=== PATIENT | female | born 1945 | race Two or more races ===

== ENCOUNTER 2016-11-06 13:29 | Inpatient (IN) | payer MEDICARE, OTHER ==
[~2016-11-06] VITALS: Ht 154.9 cm; Wt 45.4 kg
[~2016-11-06 13:29] MED LIST: CALCIUM500 M3 PO; KEFLEX500 MG ORAL; LYRICA25 MG ORAL
[2016-11-06 13:55] VITALS: BP 102/63
--- NOTE | 2016-11-06 14:12 | Emergency Room Report ---
History of Present Illness General Chief Complaint: Upper Respiratory Illness Source: Patient (Riya Foster) Present Illness HPI 71-year-old female presents to emergency Department complaining of productive cough over 2 months. Patient states that approximately a month and a half ago she was prescribed antibiotics however now she states she began that fevers and chills over the course of the past 2 days. Patient states that she was diagnosed previously with bronchitis she denies recent travel and reports her only ill contact was her grandson. Patient reports past medical history of hypertension denies history of asthma, COPD, smoking, cardiac disease or renal disease. She denies swelling in the lower extremities. Patient states that yesterday she also felt weaker than normal. Patient denies fall, dizziness, dysuria, hematuria, abdominal pain, rashes. Denies sore throat or runny nose. Denies CP, Palpitations, LOC, AMS, dizziness, Changes in Vision, Sensation, paresthesias, or a sudden severe headache. (Riya Foster) Allergies: Coded Allergies: No Known Allergies (Unverified , 10/02/15) Patient History Past Medical History: see triage record, HTN Past Surgical History: none Pertinent Family History: none Last Menstrual Period: na Now: No Immunizations: UTD Reviewed Nursing Documentation: PMH: Agreed, PSxH: Agreed (Riya Foster) Nursing Documentation-PMH Past Medical History: No History, Except For (Riya Foster) Review of Systems All Other Systems: negative except mentioned in HPI (Riya Foster) Physical Exam Vital Signs Date Time Temp Pulse Resp B/P Pulse Ox O2 Delivery O2 Flow Rate FiO2 11/06/16 13:47 100.6 106 20 102/63 98 Room Air Sp02 EP Interpretation: reviewed, abnormal - fever 100.6, tachycardic 106 BPM General Appearance: no apparent distress, alert, GCS 15, non-toxic Head: normocephalic, atraumatic Eyes: bilateral eye PERRL, bilateral eye normal inspection ENT: hearing grossly normal, normal pharynx, no angioedema, normal voice Neck: full range of motion, supple/symm/no masses Respiratory: chest non-tender, crackles - inspiratory crackles auscultated at the base of the right lung, left lung diamond are CTA, speaking full sentences Cardiovascular #1: regular rate, rhythm, no edema, normal capillary refill, tachycardia - 106BPM Gastrointestinal: soft Rectal: deferred Genitourinary: normal inspection, no CVA tenderness Musculoskeletal: back normal, gait/station normal, normal range of motion, non- tender, no calf tenderness Neurologic: alert, oriented x3, responsive, motor strength/tone normal, sensory intact, speech normal Psychiatric: judgement/insight normal, memory normal, mood/affect normal, no suicidal/homicidal ideation Skin: normal color, no rash, warm/dry, well hydrated Lymphatic: no adenopathy (Riya Foster) Medical Decision Making PA Attestation Dr. Fonseca is my supervising Physician whom patient management has been discussed with. (Riya Foster) Diagnostic Impression: Primary Impression: Pneumonia Qualified Codes: J18.9 - Pneumonia, unspecified organism Additional Impression: Anemia Qualified Codes: D64.9 - Anemia, unspecified ER Course 71-year-old female presents to emergency Department complaining of productive cough over 2 months. Patient states that approximately a month and a half ago she was prescribed antibiotics however now she states she began that fevers and chills over the course of the past 2 days. Patient states that she was diagnosed previously with bronchitis she denies recent travel and reports her only ill contact was her grandson. Patient reports past medical history of hypertension denies history of asthma, COPD, smoking, cardiac disease or renal disease. She denies swelling in the lower extremities. Patient states that yesterday she also felt weaker than normal. Patient denies fall, dizziness, dysuria, hematuria, abdominal pain, rashes. Denies sore throat or runny nose. Ddx considered but are not limited to URI, pneumonia, PE, pulmonary edema, bronchitis Vital signs: Pt. has fever of 100.6, tachycardic 106 bpm H&PE are most consistent with possible PNA, inspiratory crackles auscultated at the base of the right lung, left lung diamond are CTA. ORDERS: -CXR 1 View: Bilateral pulmonary infiltrates, no atelectasis, no effusions per preliminary read by Dr. Fonseca -CBC: WBC's elevated 10.9, hemoglobin 10.9, rbc's 3.5 -BMP: mild hypochloremia and hyponatremia , Cr 1.1 -UA: pending -Pro-BNP: 985 -Lactic Acid: pending -Blood Cultures x 2: Pending -EK BPM NSR, no Acute ST changes- interpreted by Dr. Fonseca ED INTERVENTIONS: -Pt placed on cardiac monitoring -IV Access established -3grams Unasyn IVPB DISPOSITION: at this time pt. will be admitted to Dr. De La Torre for Pneumonia. Dr. De La Torre agreed to admit the pt. and to continue pt. care management.- Endorsed to Dr. De La Torre at 1547 Labs Test 11/06/16 14:24 11/06/16 15:19 11/06/16 15:34 White Blood Count 10.9 K/UL (4.8-10.8) Red Blood Count 3.56 M/UL (4.20-5.40) Hemoglobin 10.9 G/DL (12.0-16.0) Hematocrit 32.7 % (37.0-47.0) Mean Corpuscular Volume 92 FL (80-99) Mean Corpuscular Hemoglobin 30.7 PG (27.0-31.0) Mean Corpuscular Hemoglobin Concent 33.5 G/DL (32.0-36.0) Red Cell Distribution Width 11.8 % (11.6-14.8) Platelet Count 311 K/UL (150-450) Mean Platelet Volume 6.2 FL (6.5-10.1) Neutrophils (%) (Auto) % (45.0-75.0) Lymphocytes (%) (Auto) % (20.0-45.0) Monocytes (%) (Auto) % (1.0-10.0) Eosinophils (%) (Auto) % (0.0-3.0) Basophils (%) (Auto) % (0.0-2.0) Differential Total Cells Counted 100 Neutrophils % (Manual) 91 % (45-75) Lymphocytes % (Manual) 5 % (20-45) Monocytes % (Manual) 3 % (1-10) Eosinophils % (Manual) 0 % (0-3) Basophils % (Manual) 0 % (0-2) Band Neutrophils 1 % (0-8) Platelet Estimate Adequate Platelet Morphology Normal Red Blood Cell Morphology Normal Sodium Level 132 mEQ/L (135-145) Potassium Level 3.9 mEQ/L (3.4-4.9) Chloride Level 95 mEQ/L (98-107) Carbon Dioxide Level 22 mEQ/L (20-30) Anion Gap 15 (5-15) Blood Urea Nitrogen 20 mg/dL (7-23) Creatinine 1.1 mg/dL (0.5-0.9) Estimat Glomerular Filtration Rate mL/min (>60) Glucose Level 140 mg/dL (74-106) Calcium Level 8.6 mg/dL (8.6-10.2) Pro-B-Type Natriuretic Peptide 985 pg/mL (0-125) (Riya Foster) ER Course The patient was seen by physician assistant scientist. Patient noted have evidence of temporal muscle wasting. Patient's chest x-ray showed bilateral l lung infiltrate. Patient was given IV antibiotics. Patient started on IV fluids. Patient appears to have been losing weight according to her family. This is reportedly do to a recent of her son.Chest x-ray read by radiology showed bilateral diffuse interstitial disease with indeterminate acuity. Labs Test 11/06/16 14:24 White Blood Count 10.9 K/UL (4.8-10.8) Red Blood Count 3.56 M/UL (4.20-5.40) Hemoglobin 10.9 G/DL (12.0-16.0) Hematocrit 32.7 % (37.0-47.0) Mean Corpuscular Volume 92 FL (80-99) Mean Corpuscular Hemoglobin 30.7 PG (27.0-31.0) Mean Corpuscular Hemoglobin Concent 33.5 G/DL (32.0-36.0) Red Cell Distribution Width 11.8 % (11.6-14.8) Platelet Count 311 K/UL (150-450) Mean Platelet Volume 6.2 FL (6.5-10.1) Neutrophils (%) (Auto) % (45.0-75.0) Lymphocytes (%) (Auto) % (20.0-45.0) Monocytes (%) (Auto) % (1.0-10.0) Eosinophils (%) (Auto) % (0.0-3.0) Basophils (%) (Auto) % (0.0-2.0) Differential Total Cells Counted 100 Neutrophils % (Manual) 91 % (45-75) Lymphocytes % (Manual) 5 % (20-45) Monocytes % (Manual) 3 % (1-10) Eosinophils % (Manual) 0 % (0-3) Basophils % (Manual) 0 % (0-2) Band Neutrophils 1 % (0-8) Platelet Estimate Adequate Platelet Morphology Normal Red Blood Cell Morphology Normal Sodium Level 132 mEQ/L (135-145) Potassium Level 3.9 mEQ/L (3.4-4.9) Chloride Level 95 mEQ/L (98-107) Carbon Dioxide Level 22 mEQ/L (20-30) Anion Gap 15 (5-15) Blood Urea Nitrogen 20 mg/dL (7-23) Creatinine 1.1 mg/dL (0.5-0.9) Estimat Glomerular Filtration Rate mL/min (>60) Glucose Level 140 mg/dL (74-106) Calcium Level 8.6 mg/dL (8.6-10.2) (Darian Fonseca) EKG Diagnostic Results EP Interpretation: interpreted by Dr. Fonseca Rate: normal - 97 BPM Rhythm: NSR ST Segments: no acute changes ASA given to the pt in ED: No PA Scribe Text interpreted by Dr. Fonseca (Riya Foster P.ANorma) Rate: normal Rhythm: NSR ST Segments: no acute changes (Darian Fonseca) Last Vital Signs Date Time Temp Pulse Resp B/P Pulse Ox O2 Delivery O2 Flow Rate FiO2 11/06/16 13:47 100.6 106 20 102/63 98 Room Air (Riya Foster P.ANorma) Status: unchanged (Darian Fonseca) Disposition: ADMITTED INPATIENT Condition: Serious Referrals: NON PHYSICIAN (PCP) Riya Foster Nov 06, 2016 14:12 Darian Fonseca Nov 06, 2016 15:24
[2016-11-06 14:38] LABS: MEAN CORPUSCULAR HEMOGLOBIN 30.7 PG (27.0-31.0); MEAN CORPUSCULAR HGB CONC 33.5 G/DL (32.0-36.0); MEAN CORPUSCULAR VOLUME 92 FL (80-99); MEAN PLATELET VOLUME 6.2 FL (6.5-10.1); PLATELET COUNT 311 K/UL (150-450); RED BLOOD COUNT 3.56 M/UL (4.20-5.40); RED CELL DISTRIBUTION WIDTH 11.8 % (11.6-14.8); WHITE BLOOD COUNT 10.9 K/UL (4.8-10.8)
[2016-11-06 14:52] LABS: ANION GAP 15 (5-15); CALCIUM 8.6 mg/dL (8.6-10.2); CARBON DIOXIDE 22 mEQ/L (20-30); CHLORIDE 95 mEQ/L (98-107); CREATININE 1.1 mg/dL (0.5-0.9); HEMOLYSIS 9; POTASSIUM 3.9 mEQ/L (3.4-4.9); SODIUM 132 mEQ/L (135-145)
[2016-11-06 15:10] LABS: BAND NEUTROPHILS % (MANUAL) 1 % (0-8); BASOPHILS % (MANUAL) 0 % (0-2); EOSINOPHILS % (MANUAL) 0 % (0-3); LYMPHOCYTES % (MANUAL) 5 % (20-45); NEUTROPHILS % (MANUAL) 91 % (45-75); PLATELET ESTIMATE ADEQUATE; PLATELET MORPHOLOGY NORMAL; TOTAL CELLS COUNTED 100
[2016-11-06] MEDS ORDERED: Unasyn 3gm Inj IVPB ONE (15:15)
[2016-11-06] MEDS ORDERED: ASPIR 8181 MG ORAL (15:39)
[2016-11-06 15:50] LABS: APPEARANCE,URINE CLEAR; KETONES,URINE NEGATIVE (NEGATIVE); LEUKOCYTE ESTERASE ,URINE NEGATIVE (NEGATIVE); NITRITE,URINE NEGATIVE (NEGATIVE); PH,URINE 7 (4.5-8.0); PROTEIN,URINE 2+ (NEGATIVE); UROBILINOGEN,URINE NORMAL MG/DL (0.0-1.0)
[2016-11-06 15:51] VITALS: BP 96/49
[2016-11-06 15:58] LABS: BACTERIA,URINE FEW /HPF; SQUAMOUS EPITHELIAL CELL,UR FEW /LPF (NONE/OCC); WBC,URINE 0-2 /HPF (0 - 2); YEAST,URINE FEW /HPF
[2016-11-06] MEDS ORDERED: Ampicillin/Sulbactam Sod 3 GM in NS 110 ML IVPB ONE (16:00)
[2016-11-06 17:00] VITALS: BP 99/52
[2016-11-06] MEDS ORDERED: guaiFENesin w/Codeine 5ml Liq ud ORAL PRN (17:45)
[2016-11-06 18:19] VITALS: BP 106/45
[2016-11-06] MEDS: DuoNeb 0.5-3(2.5)mg/3ml neb HHN SCH ×3 (18:30→23:00)
[2016-11-06] MEDS ORDERED: cefTRIAXone 1 GM in NS 55 ML IVPB ONE (19:00)
[2016-11-06 20:54] VITALS: BP 90/47
[2016-11-07] VITALS (8 sets, daily range): BP systolic 81–98; BP diastolic 41–54
--- NOTE | 2016-11-07 02:19 | History and Physical Report ---
DATE OF ADMISSION: 11/06/2016 REASON FOR ADMISSION: Community-acquired pneumonia. HISTORY OF PRESENT ILLNESS: This is a 71-year-old, female, presented to the emergency room with several weeks of progressive cough, congestion and shortness of breath progressing more over the past few days despite oral antibiotics. The patient took a course of antibiotics almost 2 months ago, did not improve and because she developed fevers and chills. In the last couple of days, additional antibiotics were given. The patient notes that her only ill contact with the grandson with a cold. She has not had any recent travel history and there is no known history of positive PPD. There is no history of asthma, COPD, or other lung disease. PAST MEDICAL HISTORY: Includes hypertension. SOCIAL HISTORY: Negative for smoking, alcohol, or substance abuse. ALLERGIES: None known. MEDICATIONS: Prior to admission, reviewed and reconciled. FAMILY HISTORY: Noncontributory. REVIEW OF SYSTEMS: She has had fevers and chills. She did receive a flu shot. There is no history of seizure or stroke. There is no known history of diabetes or thyroid disorder. She does have a history of hypertension but no history of heart attack or irregular heartbeats. No history of rheumatic fever. There is no history of asthma. There is no history of blood clotting or bleeding. There is no known history of kidney disease and she denies any change in bowel habits. PHYSICAL EXAMINATION: GENERAL: Thin and frail, in no acute distress. VITAL SIGNS: Temperature 100.6 degrees, blood pressure 102/63, pulse 106, and respiratory 20. HEENT: Temporal wasting. Pale conjunctivae. Anicteric sclerae. Oropharynx clear. Mucous membranes dry. NECK: Supple. No jugular venous distention. No accessory muscle use. LUNGS: Bilateral breath sounds. Scattered rhonchi. No wheezing. CARDIAC: Regular rhythm. Rapid rate. Normal S1 and S2 with a fourth heart sound. No murmur. ABDOMEN: Soft and nontender. No guarding. No rebound. RECTAL: Deferred. NEUROLOGIC: Nonfocal. SKIN: Without rash. LABORATORY AND DIAGNOSTIC DATA: White count 10.9 and hemoglobin 10.9. Lactic acid is 1.2. Pro-natriuretic peptide is 955. BUN 20 and creatinine 1.1. Sodium 132, potassium 3.9, and bicarbonate 22. Chest x-ray revealed bilateral interstitial infiltrates. EKG sinus rhythm, no acute abnormalities. IMPRESSION: 1. Pneumonia. 2. Hypertension. 3. Anemia. 4. Hypovolemia. 5. Dehydration. PLAN: 1. Antibiotics. 2. Respiratory hygiene. 3. Sputum cultures. 4. Empiric antibiotics. 5. DVT prophylaxis. 6. Volume resuscitation. 7. Repeat imaging studies of the lung. 8. We will follow. Cruz De La Torre M.D. DR: PENNY JOB#: [id number] CC:
[2016-11-07] MEDS: DuoNeb 0.5-3(2.5)mg/3ml neb HHN SCH ×6 (03:00→22:53)
--- NOTE | 2016-11-07 08:27 | Diagnostic Imaging Report ---
Indication: COUGH Technique: One view of the chest Comparison: none Findings: There is bilateral diffuse next mostly interstitial disease, acuity indeterminate. The pleural spaces are clear. Heart size is normal Impression: Bilateral mixed mostly interstitial disease, acuity indeterminate.
[2016-11-07 08:53] LABS: MEAN CORPUSCULAR HEMOGLOBIN 30.3 PG (27.0-31.0); MEAN CORPUSCULAR HGB CONC 32.3 G/DL (32.0-36.0); MEAN CORPUSCULAR VOLUME 94 FL (80-99); MEAN PLATELET VOLUME 5.6 FL (6.5-10.1); PLATELET COUNT 269 K/UL (150-450); RED BLOOD COUNT 3.29 M/UL (4.20-5.40); WHITE BLOOD COUNT 8.9 K/UL (4.8-10.8)
[2016-11-07 09:20] LABS: ALANINE AMINOTRANSFERASE 8 U/L (3-33); ALBUMIN/GLOBULIN RATIO 0.5 (1.0-2.7); ANION GAP 13 (5-15); ASPARTATE AMINO TRANSFERASE 19 U/L (5-40); CALCIUM 8.5 mg/dL (8.6-10.2); CARBON DIOXIDE 25 mEQ/L (20-30); CHLORIDE 103 mEQ/L (98-107); CREATININE 1.1 mg/dL (0.5-0.9); HEMOLYSIS 3; MAGNESIUM 1.9 mg/dL (1.7-2.5); POTASSIUM 3.6 mEQ/L (3.4-4.9); SODIUM 141 mEQ/L (135-145); TOTAL PROTEIN 7.5 g/dL (6.6-8.7)
[2016-11-07 11:24] LABS: BAND NEUTROPHILS % (MANUAL) 1 % (0-8); BASOPHILS % (MANUAL) 0 % (0-2); EOSINOPHILS % (MANUAL) 0 % (0-3); LYMPHOCYTES % (MANUAL) 11 % (20-45); NEUTROPHILS % (MANUAL) 87 % (45-75); PLATELET ESTIMATE ADEQUATE; PLATELET MORPHOLOGY NORMAL; TOTAL CELLS COUNTED 100
[2016-11-07] MEDS ORDERED: Azithromycin 250mg tab ORAL ONE (19:00)
[2016-11-07] MEDS ORDERED: cefTRIAXone 1gm/D5W 55ml IVPB SCH ×2 (19:00)
--- NOTE | 2016-11-07 20:38 | Consultation ---
DATE OF CONSULTATION: 11/07/2016 PULMONARY CONSULTATION CHIEF COMPLAINT: Short of breath and cough with blood-streaked sputum. HISTORY OF PRESENT ILLNESS: This 71-year-old woman was treated several weeks ago with antibiotics for cough and shortness of breath. No x-rays available from that visit; however, the patient did not improve and was recently given antibiotics again. She became more short of breath and came to the emergency department. She has no high fever. She is coughing some yellow sputum with blood streaks. She has no history of asthma, pneumonia, or tuberculosis. She has never smoked cigarettes. PAST MEDICAL HISTORY: Hypertension, history of osteoporosis, and possible rheumatoid arthritis. PAST SURGICAL HISTORY: She has no history of surgery. ALLERGIES: None. MEDICATIONS: Reviewed. She recently got ceftriaxone in the emergency department. At home, she is on aspirin, calcium, and Lyrica. IMMUNIZATIONS: She had a flu shot this year. REVIEW OF SYSTEMS: Otherwise unremarkable. She has no chills or sweats. She is not losing weight. PHYSICAL EXAMINATION: GENERAL: The patient is alert and responds appropriately. VITAL SIGNS: Stable. She is somewhat hypotensive. There is no fever. SKIN: Warm and dry. HEENT: Head is normocephalic. NECK: No jugular venous distention. CHEST: Has rales bilateral. CARDIAC: Rhythm is regular. ABDOMEN: Soft and nontender. EXTREMITIES: No edema. DIAGNOSTIC DATA: Chest x-ray shows bilateral patchy infiltrates. IMPRESSION: 1. Bilateral pulmonary infiltrates, possible pneumonia, possible tuberculosis, possible rheumatoid lung disease. 2. History of hypertension with current hypotension. 3. Mild anemia. 4. Malnutrition with albumin 2.7. 5. Chronic kidney disease, stage 2. 6. Mild hyperglycemia. PLAN: The patient will be placed in respiratory isolation. We will get appropriate tuberculosis studies, antibiotics will be given, and we will check rheumatoid factor and get a high-resolution CT scan of the chest. Reji Ardon M.D. DR: KELTON JOB#: [id number] CC: Reji Ardon M.D.; Fax#: [phone] Kattan, M.D.
[2016-11-07] MEDS: Heparin 5000 units/ml inj SUBQ SCH (21:33)
[2016-11-08] VITALS (7 sets, daily range): BP systolic 88–120; BP diastolic 48–57
[2016-11-08] MEDS: DuoNeb 0.5-3(2.5)mg/3ml neb HHN SCH ×6 (03:00→23:00)
[2016-11-08] MEDS: Heparin 5000 units/ml inj SUBQ SCH ×2 (09:07→20:50)
--- NOTE | 2016-11-08 09:45 | Diagnostic Imaging Report ---
Indication: Dyspnea Technique: Continuous helical transaxial imaging of the chest was obtained from the thoracic inlet to the upper abdomen. No intravenous contrast was administered. Coronal 2-D reformats were also obtained. Total Dose length Product (DLP): [address] Dose Index Volume (CTDIvol): 15 mGy Comparison: none Findings: Extensive, patchy groundglass consolidative opacities are present throughout the lung diamond and both upper lower lobes. The single largest area of involvement appears to be the right upper lobe. Findings likely due to disseminated pneumonia. Please correlate clinically. Several circumscribed thin-walled cystic foci also noted within the lungs. Nature of these structures is unknown but may be small postinflammatory pneumatoceles. Heart size is normal. There is no pulmonary venous congestion identified. There is no interstitial disease per se. Trace right pleural effusion is present. Exam is limited by the absence of IV contrast material especially with regard to evaluation for adenopathy which may be present in the subcarinal and hilar regions. This is not for certain. Aorta shows some mural calcification. The visualized part of the upper abdomen is unremarkable. Impression: Extensive patchy infiltrates bilaterally. Suggestion of subcutaneous scanner pneumatoceles. Question of a subcarinal lymphadenopathy. Mild atherosclerotic vascular disease The CT scanner at [facility] is accredited by the [employer] [place] [employer] [employer] and the scans are performed using protocols designed to limit radiation exposure to as low as reasonably achievable to attain images of sufficient resolution adequate for diagnostic evaluation.
--- NOTE | 2016-11-08 17:36 | Pulmonology Progress Note ---
Assessment/Plan Assessment/Plan 1. Bilateral pulmonary infiltrates, possible pneumonia, tuberculosis or rheumatoid lung disease. 2. History of hypertension with current hypotension. 3. Mild anemia. 4. Malnutrition with albumin 2.7. 5. Chronic kidney disease, stage 2. 6. Mild hyperglycemia. feels better low grade fever rales CT with extensive infiltrates and pneumatoceles await serology, TB tests cont abx Subjective Constitutional: Reports: fever Respiratory: Reports: productive cough Allergies: Coded Allergies: No Known Allergies (Unverified , 10/02/15) Objective Last 24 Hour Vital Signs Date Time Temp Pulse Resp B/P Pulse Ox O2 Delivery O2 Flow Rate FiO2 11/08/16 16:00 98.2 95 20 89/50 94 Nasal Cannula 2.0 11/08/16 15:48 87 20 99 Nasal Cannula 2.0 11/08/16 15:38 96 18 99 Nasal Cannula 2.0 11/08/16 11:25 98.1 87 18 89/51 96 Nasal Cannula 2.0 11/08/16 11:24 84 20 97 Nasal Cannula 3.0 11/08/16 11:10 91 18 97 Nasal Cannula 3.0 11/08/16 08:00 97.5 68 20 88/50 96 Nasal Cannula 2.0 11/08/16 08:00 116 11/08/16 07:55 86 18 99 Nasal Cannula 2.0 11/08/16 07:45 95 18 88 Room Air 11/08/16 04:00 97.2 77 18 100/56 97 Nasal Cannula 2.0 11/08/16 04:00 71 11/08/16 03:12 Nasal Cannula 11/08/16 03:12 Nasal Cannula 11/08/16 00:00 99.0 75 18 98/57 96 Nasal Cannula 2.0 11/08/16 00:00 84 11/07/16 22:54 Nasal Cannula 11/07/16 22:53 Nasal Cannula 11/07/16 22:47 99.1 11/07/16 20:00 90 11/07/16 20:00 100.6 85 21 95/54 93 Nasal Cannula 2.0 11/07/16 19:30 Nasal Cannula 11/07/16 19:30 Nasal Cannula Intake and Output 11/07/16 11/08/16 19:00 07:00 Intake Total 940 ml 1250 ml Balance 940 ml 1250 ml Intake Oral 240 ml 450 ml IV Total 700 ml 800 ml # Voids 1 3 # Bowel Movements 1 General Appearance: no acute distress Respiratory/Chest: crackles/rales Cardiovascular: normal rate Microbiology Date/Time Source Procedure Growth Status 11/06/16 15:19 Blood Blood Culture - Preliminary NO GROWTH AFTER 24 HOURS Resulted 11/06/16 15:09 Blood Blood Culture - Preliminary NO GROWTH AFTER 24 HOURS Resulted 11/06/16 15:34 Urine,Clean Catch Urine Culture - Preliminary Mixed Gram Positive Organism Resulted Laboratory Tests 11/08/16 04:25: M. tuberculosis Complex DNA (PCR) [Pending] 11/08/16 06:50: Anti-Nuclear Antibody Screen [Pending], TB Test (T-Spot) [Pending], TB Test Nil Control (T-Spot) [Pending], TB Test Panel A (T-Spot) [Pending], TB Test Panel B (T-Spot) [Pending], TB Test Positive Control (T-Spot) [Pending] Current Medications Medications (Trade) Dose Ordered Sig/Floyd Route PRN Reason Start Time Stop Time Status Last Admin Dose Admin Acetaminophen (Tylenol) 650 mg Q4H PRN ORAL Mild Pain (Pain Scale 1-3) 11/06/16 17:45 12/06/16 17:44 11/06/16 19:07 Albuterol/ Ipratropium (DuoNeb 0.5-3(2.5)mg/3ml) 3 ml Q4HRT HHN 11/06/16 18:30 11/11/16 18:29 11/08/16 15:41 Azithromycin 250 mg 250 mg Q24H ORAL 11/08/16 18:00 11/14/16 17:59 Ceftriaxone Sodium/Dextrose (Rocephin/D5W) 55 ml @ 110 mls/hr Q24H IVPB 11/07/16 19:00 11/14/16 18:59 11/07/16 21:23 Dextrose STAT PRN IV Hypoglycemia 11/06/16 20:45 12/06/16 20:44 Guaifenesin/ Codeine Phosphate (Robitussin with codeine) 5 ml Q4H PRN ORAL For Cough 11/06/16 17:45 12/06/16 17:44 Heparin Sodium (Porcine) (Heparin 5000 units/ml) 5,000 units EVERY 12 HOURS SUBQ 11/07/16 21:00 12/07/16 20:59 11/08/16 09:07 Sodium Chloride (Sodium Chloride 1000ml bag) 1,000 ml @ 100 mls/hr Q10H IV 11/07/16 01:45 12/07/16 01:44 11/08/16 09:04 ABDIAS GRAFF Nov 08, 2016 17:36
[2016-11-08] MEDS ORDERED: Azithromycin 250mg tab ORAL SCH (18:00)
[2016-11-08] MEDS: cefTRIAXone 1 GM in D5W 55 ML IVPB SCH (19:35)
[2016-11-08] MEDS ORDERED: guaiFENesin w/Codeine 5ml Liq ud ORAL PRN (21:45)
[2016-11-09] VITALS: BP 104/63
--- NOTE | 2016-11-09 02:38 | Progress Note ---
DATE: 11/07/2016 INTERNAL MEDICINE PROGRESS NOTE LATE ENTRY SUBJECTIVE: The patient was seen and evaluated. Case was reviewed with the motel food service supervisor, Dr. Ardon. The patient is less congested, but still has cough. She had low blood pressure readings all evening and required fluid boluses. OBJECTIVE: VITAL SIGNS: Blood pressure 85/47, pulse 98, respiratory rate 19, afebrile, and oxygen saturation on 2 L 99%. HEENT: Oropharynx clear with no thrush. NECK: Supple with no adenopathy. LUNGS: With rales bilaterally. CARDIAC: Regular rhythm and rate. Normal S1 and S2 with no murmur. EXTREMITIES: No edema. ABDOMEN: Soft and benign. IMPRESSION: 1. Pulmonary infiltrates, possible pneumonia. 2. Hypertension, now with low heart rate. Blood pressure suggesting shock. 3. Anemia. 4. Moderate protein-calorie malnutrition. 5. Chronic kidney disease. PLAN: Antimicrobials. Respiratory isolation. Pending tuberculosis studies. CT scan of the chest motel food service supervisor. Protein supplement. Volume support. Holding of any antihypertensive therapy at this time. No need for pressors presently. Cruz De La Torre M.D. DR: TABBY JOB#: [id number] CC:
--- NOTE | 2016-11-09 02:38 | Progress Note ---
DATE: 11/08/2016 INTERNAL MEDICINE PROGRESS NOTE SUBJECTIVE: The patient remains in respiratory isolation. She is not short of breath. Cough has decreased. She has low-grade fevers to 100.6. OBJECTIVE: VITAL SIGNS: Blood pressure 89/50, heart rate 95, respiratory rate 20, and oxygen saturation is 94% to 99% on two liters. LUNGS: Bilateral breath sounds. Few rales. HEART: Regular rhythm and rate. Normal S1 and S2. ABDOMEN: Soft. CT scan revealed extensive infiltrates and pneumatoceles. IMPRESSION: 1. Pulmonary infiltrates, possible pneumonia, possible rheumatoid lung, rule out tuberculosis. 2. Persistent low range blood pressure, asymptomatic. 3. Moderate protein-calorie malnutrition. 4. Anemia. 5. Chronic kidney disease. 6. Elevated sedimentation rate. PLAN: 1. Await cultures. 2. Empiric antibiotics. 3. Respiratory hygiene. 4. Intravenous fluids. 5. Check cortisol level. 6. DVT prophylaxis. Cruz De La Torre M.D. DR: TELMA JOB#: [id number] CC:
[2016-11-09] MEDS: DuoNeb 0.5-3(2.5)mg/3ml neb HHN SCH ×6 (03:00→23:34)
[2016-11-09 04:00] VITALS: BP 114/65
[2016-11-09 07:26] LABS: BASOPHILS % (AUTO) 0.3 % (0.0-2.0); EOSINOPHILS % (AUTO) 0.5 % (0.0-3.0); LYMPHOCYTES % (AUTO) 15.5 % (20.0-45.0); MEAN CORPUSCULAR HEMOGLOBIN 30.4 PG (27.0-31.0); MEAN CORPUSCULAR HGB CONC 32.6 G/DL (32.0-36.0); MEAN CORPUSCULAR VOLUME 93 FL (80-99); MEAN PLATELET VOLUME 6.3 FL (6.5-10.1); MONOCYTES % (AUTO) 9.7 % (1.0-10.0); PLATELET COUNT 252 K/UL (150-450); RED BLOOD COUNT 2.74 M/UL (4.20-5.40); RED CELL DISTRIBUTION WIDTH 11.9 % (11.6-14.8); WHITE BLOOD COUNT 5.3 K/UL (4.8-10.8)
[2016-11-09 07:37] LABS: ALANINE AMINOTRANSFERASE 6 U/L (3-33); ALBUMIN/GLOBULIN RATIO 0.6 (1.0-2.7); ANION GAP 14 (5-15); ASPARTATE AMINO TRANSFERASE 16 U/L (5-40); CALCIUM 8.3 mg/dL (8.6-10.2); CARBON DIOXIDE 22 mEQ/L (20-30); CHLORIDE 103 mEQ/L (98-107); CREATININE 0.8 mg/dL (0.5-0.9); HEMOLYSIS 2; MAGNESIUM 1.8 mg/dL (1.7-2.5); POTASSIUM 3.6 mEQ/L (3.4-4.9); SODIUM 139 mEQ/L (135-145); TOTAL PROTEIN 6.3 g/dL (6.6-8.7)
[2016-11-09 08:20] VITALS: BP 91/50
[2016-11-09] MEDS: Heparin 5000 units/ml inj SUBQ SCH ×2 (09:33→19:59)
[2016-11-09 10:40] LABS: RHEUMATOID FACTOR SCREEN 23.1 IU/mL (0.0-13.9)
[2016-11-09 12:01] VITALS: BP 100/57
[2016-11-09 16:00] VITALS: BP 105/58
--- NOTE | 2016-11-09 16:08 | Pulmonology Progress Note ---
Assessment/Plan Assessment/Plan 1. Bilateral pulmonary infiltrates, possible pneumonia, tuberculosis or rheumatoid lung disease. 2. History of hypertension with current hypotension. 3. Mild anemia. 4. Malnutrition with albumin 2.7. 5. Chronic kidney disease, stage 2. 6. Mild hyperglycemia. feels better AFB neg x 1 TB spot, DNA pdg RA titer +; prob Rheumatoid lung with pneumonia TB less likely cont abx Subjective Constitutional: Reports: no symptoms Respiratory: Reports: hemoptysis - better, productive cough Allergies: Coded Allergies: No Known Allergies (Unverified , 10/02/15) Objective Last 24 Hour Vital Signs Date Time Temp Pulse Resp B/P Pulse Ox O2 Delivery O2 Flow Rate FiO2 11/09/16 15:54 98 16 99 Nasal Cannula 2.0 11/09/16 15:40 109 18 98 Nasal Cannula 2.0 11/09/16 12:01 98.1 85 15 100/57 99 Nasal Cannula 11/09/16 11:58 97 16 99 Nasal Cannula 2.0 11/09/16 11:48 86 16 98 Nasal Cannula 2.0 11/09/16 08:20 97.7 103 18 91/50 98 Room Air 11/09/16 07:46 96 16 99 Nasal Cannula 2.0 11/09/16 07:36 98 16 98 Nasal Cannula 2.0 11/09/16 04:00 97.3 99 18 114/65 97 Nasal Cannula 2.0 11/09/16 03:00 Nasal Cannula 2.0 28 11/09/16 03:00 Nasal Cannula 2.0 28 11/09/16 00:00 98.8 97 20 104/63 96 Nasal Cannula 2.0 11/08/16 23:07 Nasal Cannula 2.0 28 11/08/16 23:06 Nasal Cannula 2.0 28 11/08/16 20:00 97.7 90 18 91/48 96 Nasal Cannula 2.0 11/08/16 19:00 89 14 99 Nasal Cannula 2.0 28 11/08/16 19:00 Nasal Cannula 2.0 28 Intake and Output 11/08/16 11/09/16 19:00 07:00 Intake Total 840 ml 570 ml Balance 840 ml 570 ml Intake Oral 240 ml 240 ml IV Total 600 ml 330 ml # Voids 2 3 # Bowel Movements 1 General Appearance: no acute distress Respiratory/Chest: crackles/rales Cardiovascular: normal rate Microbiology Date/Time Source Procedure Growth Status 11/08/16 04:25 Sputum AFB Specimen Processing Tissue - Final Resulted 11/08/16 04:25 Sputum Acid Fast Bacilli Smear - Final Resulted 11/08/16 04:25 Sputum Acid Fast Bacilli Culture Pending Resulted 11/07/16 14:50 Sputum Gram Stain - Final Resulted 11/07/16 14:50 Sputum Culture - Preliminary Claudia Albicans Resulted Laboratory Tests 11/09/16 06:35: White Blood Count 5.3, Red Blood Count 2.74L, Hemoglobin 8.3L, Hematocrit 25.6L , Mean Corpuscular Volume 93, Mean Corpuscular Hemoglobin 30.4, Mean Corpuscular Hemoglobin Concent 32.6, Red Cell Distribution Width 11.9, Platelet Count 252, Mean Platelet Volume 6.3L, Neutrophils (%) (Auto) 74.0, Lymphocytes ( %) (Auto) 15.5L, Monocytes (%) (Auto) 9.7, Eosinophils (%) (Auto) 0.5, Basophils (%) (Auto) 0.3, Sodium Level 139, Potassium Level 3.6, Chloride Level 103, Carbon Dioxide Level 22, Anion Gap 14, Blood Urea Nitrogen 9, Creatinine 0.8, Estimat Glomerular Filtration Rate , Glucose Level 102, Calcium Level 8.3L , Magnesium Level 1.8, Total Bilirubin 0.4, Aspartate Amino Transf (AST/SGOT) 16 , Alanine Aminotransferase (ALT/SGPT) 6, Alkaline Phosphatase 67, Total Protein 6.3L, Albumin 2.5L, Globulin 3.8, Albumin/Globulin Ratio 0.6L, Cortisol [Pending ] Current Medications Medications (Trade) Dose Ordered Sig/Floyd Route PRN Reason Start Time Stop Time Status Last Admin Dose Admin Acetaminophen (Tylenol) 650 mg Q4H PRN ORAL Mild Pain (Pain Scale 1-3) 11/08/16 21:45 12/08/16 21:44 Albuterol/ Ipratropium 3 ml 3 ml Q4HRT HHN 11/08/16 19:00 11/13/16 18:59 11/09/16 15:43 Azithromycin (Zithromax) 250 mg Q24H ORAL 11/09/16 18:00 11/13/16 17:59 Ceftriaxone Sodium/Dextrose (Rocephin/D5W) 55 ml @ 110 mls/hr Q24H IVPB 11/08/16 19:00 11/14/16 18:59 11/08/16 19:35 Dextrose (Dextrose 50%) STAT PRN IV Hypoglycemia 11/08/16 20:45 12/08/16 20:44 Guaifenesin/ Codeine Phosphate (Robitussin with codeine) 5 ml Q4H PRN ORAL For Cough 11/08/16 21:45 12/08/16 21:44 Heparin Sodium (Porcine) (Heparin 5000 units/ml) 5,000 units EVERY 12 HOURS SUBQ 11/08/16 21:00 12/08/16 20:59 11/09/16 09:33 Sodium Chloride (Sodium Chloride 1000ml bag) 1,000 ml @ 75 mls/hr [id number] IV 11/09/16 19:00 12/09/16 18:59 11/09/16 04:44 ABDIAS GRAFF 24, 2017 16:08
[2016-11-09] MEDS ORDERED: ZITHROMAX250 MG ORAL (16:10)
[2016-11-09] MEDS: cefTRIAXone 1 GM in D5W 55 ML IVPB SCH (19:49)
[2016-11-09] MEDS: Azithromycin 250mg tab ORAL SCH (19:49)
[2016-11-09 20:00] VITALS: BP 113/61
[2016-11-10] VITALS: BP 100/54
[2016-11-10] MEDS: DuoNeb 0.5-3(2.5)mg/3ml neb HHN SCH ×5 (03:00→20:25)
--- NOTE | 2016-11-10 03:08 | Progress Note ---
DATE: 11/09/2016 SUBJECTIVE: The patient is less short of breath, but still quite weak. OBJECTIVE: VITAL SIGNS: Blood pressure 91/50 to 114/65, heart rate 86 to 109, and respiratory rate 16 to 18. The patient remains afebrile. Oxygen saturation 98 to 99% on 2 liters. LUNGS: Coarse rhonchi. CARDIAC: Regular rhythm and rate. Normal S1 and S2. ABDOMEN: Soft. EXTREMITIES: No edema. LABORATORY DATA: TB test pending. AFB smear negative x1. RA titer positive. IMPRESSION: 1. 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 2. Hypovolemic shock, recovering. 3. Severe protein-calorie malnutrition. 4. Chronic kidney disease. LABORATORY DATA: White count 5.3 and hemoglobin 8.3. Potassium 3.6, BUN 9, creatinine 0.8, and albumin 2.5. pending. PLAN: 1. Protein supplement. 2. Empiric antibiotics. 3. Await final cultures. 4. Anemia panel. 5. Volume support. 6. Mobilize. Cruz De La Torre M.D. DR: DONG JOB#: [id number] CC:
[2016-11-10 04:00] VITALS: BP 95/44
[2016-11-10 07:55] LABS: BASOPHILS % (AUTO) 0.4 % (0.0-2.0); EOSINOPHILS % (AUTO) 0.3 % (0.0-3.0); LYMPHOCYTES % (AUTO) 20.8 % (20.0-45.0); MEAN CORPUSCULAR VOLUME 94 FL (80-99); MEAN PLATELET VOLUME 6.1 FL (6.5-10.1); MONOCYTES % (AUTO) 9.5 % (1.0-10.0); NEUTROPHILS % (AUTO) 68.9 % (45.0-75.0); PLATELET COUNT 267 K/UL (150-450); RED BLOOD COUNT 2.88 M/UL (4.20-5.40); RED CELL DISTRIBUTION WIDTH 12.2 % (11.6-14.8); WHITE BLOOD COUNT 6.5 K/UL (4.8-10.8)
[2016-11-10 08:21] VITALS: BP 90/51
[2016-11-10 08:24] LABS: HEMOLYSIS 7; IRON 27 ug/dL (37-145); TOTAL IRON BINDING CAPACITY 178 ug/dL (250-400)
[2016-11-10] MEDS: Heparin 5000 units/ml inj SUBQ SCH ×2 (09:19→21:52)
[2016-11-10 11:30] VITALS: BP 100/54
[2016-11-10 16:28] VITALS: BP 117/66
--- NOTE | 2016-11-10 17:23 | Pulmonology Progress Note ---
Assessment/Plan Assessment/Plan 1. Bilateral pulmonary infiltrates, possible pneumonia, tuberculosis or rheumatoid lung disease. 2. History of hypertension with current hypotension. 3. Mild anemia. 4. Malnutrition with albumin 2.7. 5. Chronic kidney disease, stage 2. 6. Mild hyperglycemia. continues to feels better AFB neg x 2 TB spot, DNA pdg RA titer +; prob Rheumatoid lung with pneumonia TB less likely cont abx CXR saturday Subjective Constitutional: Reports: no symptoms Respiratory: Reports: dry cough, shortness of breath Cardiovascular: Reports: no symptoms Gastrointestinal/Abdominal: Reports: no symptoms Genitourinary: Reports: no symptoms Allergies: Coded Allergies: No Known Allergies (Unverified , 10/02/15) Subjective no new events no cp nv scant hemoptysis noted by patient tolerating po remains on supple o2 no fever noted oob still weak Objective Last 24 Hour Vital Signs Date Time Temp Pulse Resp B/P Pulse Ox O2 Delivery O2 Flow Rate FiO2 11/10/16 16:28 99.5 99 16 117/66 98 Nasal Cannula 11/10/16 14:43 92 16 99 Nasal Cannula 2.0 11/10/16 14:38 97 16 99 Nasal Cannula 2.0 28 11/10/16 14:38 28 11/10/16 11:30 99.9 98 16 100/54 98 Room Air 11/10/16 11:20 88 16 98 Nasal Cannula 2.0 28 11/10/16 11:15 85 16 97 Nasal Cannula 2.0 28 11/10/16 11:15 28 11/10/16 08:21 97.9 109 18 90/51 100 Nasal Cannula 11/10/16 07:30 28 11/10/16 07:30 90 16 95 Nasal Cannula 2.0 28 11/10/16 07:30 85 16 99 Nasal Cannula 2.0 28 11/10/16 04:00 99.3 90 20 95/44 94 Nasal Cannula 2.0 11/10/16 03:14 Nasal Cannula 2.0 11/10/16 03:13 Nasal Cannula 2.0 11/10/16 00:11 99.7 11/10/16 00:00 99.7 117 18 100/54 96 Nasal Cannula 2.0 11/09/16 23:35 98 16 100 Nasal Cannula 2.0 11/09/16 23:35 106 18 97 Nasal Cannula 2.0 11/09/16 23:13 100.4 11/09/16 20:02 93 18 96 Nasal Cannula 2.0 11/09/16 20:02 92 16 99 Nasal Cannula 2.0 11/09/16 20:00 101.1 92 18 113/61 96 Room Air Intake and Output 11/09/16 11/10/16 19:00 07:00 Intake Total 1375 ml 1277.5 ml Balance 1375 ml 1277.5 ml Intake Oral 1000 ml 360 ml IV Total 375 ml 917.5 ml # Voids 2 5 General Appearance: WD/WN HEENT: atraumatic Respiratory/Chest: lungs clear, no respiratory distress Cardiovascular: normal peripheral pulses, regular rhythm Abdomen: soft, non tender, no organomegaly Extremities: no cyanosis Skin: no rash Neurologic/Psychiatric: abnormal gait, alert, oriented x 3 Lymphatic: no neck adenopathy Microbiology Date/Time Source Procedure Growth Status 11/09/16 05:00 Sputum AFB Specimen Processing Tissue - Final Resulted 11/09/16 05:00 Sputum Acid Fast Bacilli Smear - Final Resulted 11/09/16 05:00 Sputum Acid Fast Bacilli Culture Pending Resulted 11/08/16 04:25 Sputum AFB Specimen Processing Tissue - Final Resulted 11/08/16 04:25 Sputum Acid Fast Bacilli Smear - Final Resulted 11/08/16 04:25 Sputum Acid Fast Bacilli Culture Pending Resulted Laboratory Tests 11/10/16 01:15: M. tuberculosis Complex DNA (PCR) [Pending] 11/10/16 07:20: White Blood Count 6.5, Red Blood Count 2.88L, Hemoglobin 8.6L, Hematocrit 27.0L , Mean Corpuscular Volume 94, Mean Corpuscular Hemoglobin 30.0, Mean Corpuscular Hemoglobin Concent 32.0, Red Cell Distribution Width 12.2, Platelet Count 267, Mean Platelet Volume 6.1L, Neutrophils (%) (Auto) 68.9, Lymphocytes ( %) (Auto) 20.8, Monocytes (%) (Auto) 9.5, Eosinophils (%) (Auto) 0.3, Basophils (%) (Auto) 0.4, Iron Level 27L, Total Iron Binding Capacity 178L, Percent Iron Saturation 15, Unsaturated Iron Binding 151, Vitamin B12 Level 664, Folate [ Pending] 11/10/16 09:50: Stool Occult Blood [Pending] Current Medications Medications (Trade) Dose Ordered Sig/Floyd Route PRN Reason Start Time Stop Time Status Last Admin Dose Admin Acetaminophen (Tylenol) 650 mg Q4H PRN ORAL Mild Pain (Pain Scale 1-3) 11/08/16 21:45 12/08/16 21:44 11/09/16 23:12 Albuterol/ Ipratropium 3 ml 3 ml Q4HRT HHN 11/08/16 19:00 11/13/16 18:59 11/10/16 14:37 Azithromycin (Zithromax) 250 mg Q24H ORAL 11/09/16 18:00 11/13/16 17:59 11/09/16 19:49 Ceftriaxone Sodium/Dextrose (Rocephin/D5W) 55 ml @ 110 mls/hr Q24H IVPB 11/08/16 19:00 11/14/16 18:59 11/09/16 19:49 Dextrose (Dextrose 50%) STAT PRN IV Hypoglycemia 11/08/16 20:45 12/08/16 20:44 Guaifenesin/ Codeine Phosphate (Robitussin with codeine) 5 ml Q4H PRN ORAL For Cough 11/08/16 21:45 12/08/16 21:44 Heparin Sodium (Porcine) (Heparin 5000 units/ml) 5,000 units EVERY 12 HOURS SUBQ 11/08/16 21:00 12/08/16 20:59 11/10/16 09:19 Sodium Chloride (Sodium Chloride 1000ml bag) 1,000 ml @ 75 mls/hr [id number] IV 11/09/16 19:00 12/09/16 18:59 11/10/16 09:20 VIVIEN VILLA DO Nov 10, 2016 17:23
[2016-11-10] MEDS: Azithromycin 250mg tab ORAL SCH (18:30)
[2016-11-10] MEDS: cefTRIAXone 1 GM in D5W 55 ML IVPB SCH (18:32)
[2016-11-10 20:00] VITALS: BP 102/55
[2016-11-11] VITALS: BP 110/59
[2016-11-11 04:00] VITALS: BP 106/62
--- NOTE | 2016-11-11 04:18 | Progress Note ---
DATE: 11/10/2016 INTERNAL MEDICINE PROGRESS NOTE SUBJECTIVE: The patient feels better. No chest pain. Less short of breath. AFB smear is negative x2. pending. OBJECTIVE: VITAL SIGNS: Blood pressure 117/66, pulse 99, respiratory rate 16, and temperature 99.9, max. Oxygen saturation on 2 liters 98%. LUNGS: Bilateral breath sounds. Few rhonchi. HEART: Regular rhythm and rate. Normal S1 and S2. ABDOMEN: Soft. No edema. LABORATORY DATA: White count 6.5 and hemoglobin 8.6. B12 664. Cortisol normal. Iron panel consistent with chronic disease. IMPRESSION: 1. Pneumonia. 2. Hypoxia. 3. Possible rheumatoid lung. 4. Chronic anemia. PLAN: 1. Continue antibiotics. 2. Await final cultures. 3. Mobilize. 4. Follow up chest x-ray. Cruz De La Torre M.D. DR: BRUNA JOB#: [id number] CC:
[2016-11-11] MEDS: DuoNeb 0.5-3(2.5)mg/3ml neb HHN SCH ×4 (07:20→23:00)
[2016-11-11 08:20] VITALS: BP 111/67
[2016-11-11] MEDS: Heparin 5000 units/ml inj SUBQ SCH ×2 (08:32→22:07)
[2016-11-11 11:55] VITALS: BP 106/62
[2016-11-11 16:00] VITALS: BP 122/65
--- NOTE | 2016-11-11 18:28 | Cardiology Report ---
APPROVED REPORT EKG Measurement Heart [id number] Normal sinus rhythm Normal ECG
[2016-11-11 19:00] VITALS: BP 109/61
[2016-11-11] MEDS: Azithromycin 250mg tab ORAL SCH (19:34)
[2016-11-11] MEDS: cefTRIAXone 1 GM in D5W 55 ML IVPB SCH (19:34)
--- NOTE | 2016-11-11 20:25 | Pulmonology Progress Note ---
Assessment/Plan Assessment/Plan 1. Bilateral pulmonary infiltrates, possible pneumonia, rheumatoid lung disease doubt tuberculosis . 2. History of hypertension with current hypotension. 3. Mild anemia. 4. Malnutrition with albumin 2.7. 5. Chronic kidney disease, stage 2. 6. Mild hyperglycemia. continues to feels better AFB neg x 3, can dc isolation TB spot, DNA pdg RA titer +; prob Rheumatoid lung with pneumonia TB less likely cont abx CXR saturday Subjective Constitutional: Reports: no symptoms HEENT: Repors: no symptoms Respiratory: Reports: no symptoms Cardiovascular: Reports: no symptoms Gastrointestinal/Abdominal: Reports: no symptoms Neurologic: Reports: no symptoms Skin: Reports: no symptoms Hematologic: Reports: no symptoms Allergies: Coded Allergies: No Known Allergies (Unverified , 10/02/15) Subjective no new events no cp nv no hemoptysis noted by patient tolerating po remains on supple o2 no fever noted oob still weak afb negative 3 Objective Last 24 Hour Vital Signs Date Time Temp Pulse Resp B/P Pulse Ox O2 Delivery O2 Flow Rate FiO2 11/11/16 16:00 99.9 86 20 122/65 97 Nasal Cannula 2.0 11/11/16 15:05 Nasal Cannula 2.0 28 11/11/16 15:05 Nasal Cannula 2.0 28 11/11/16 11:55 99.1 83 22 106/62 97 Room Air 11/11/16 11:15 Nasal Cannula 2.0 28 11/11/16 11:15 Nasal Cannula 2.0 28 11/11/16 08:20 97.9 89 20 111/67 97 Room Air 11/11/16 07:20 89 16 99 Nasal Cannula 2.0 28 11/11/16 07:20 94 16 96 Nasal Cannula 2.0 28 11/11/16 04:00 97.6 76 17 106/62 100 Room Air 11/11/16 02:34 Nasal Cannula 11/11/16 02:30 Nasal Cannula 11/11/16 00:00 97.0 80 16 110/59 100 Room Air 11/10/16 23:00 Nasal Cannula 11/10/16 20:29 89 16 99 Nasal Cannula 2.0 28 11/10/16 20:26 92 16 98 Nasal Cannula 2.0 28 Intake and Output 11/10/16 11/11/16 19:00 07:00 Intake Total 1887.5 ml 375 ml Balance 1887.5 ml 375 ml Intake Oral 1450 ml IV Total 437.5 ml 375 ml # Voids 2 4 # Bowel Movements 2 General Appearance: WD/WN HEENT: atraumatic, anicteric Respiratory/Chest: lungs clear, normal breath sounds Cardiovascular: normal rate, regularly irregular Abdomen: soft, non tender, no organomegaly Extremities: no clubbing Neurologic/Psychiatric: abnormal gait, oriented x 3 Microbiology Date/Time Source Procedure Growth Status 11/10/16 01:15 Sputum Not Specified AFB Specimen Processing Tissue - Final Resulted 11/10/16 01:15 Sputum Not Specified Acid Fast Bacilli Smear - Final Resulted 11/10/16 01:15 Sputum Not Specified Acid Fast Bacilli Culture Pending Resulted 11/09/16 05:00 Sputum AFB Specimen Processing Tissue - Final Resulted 11/09/16 05:00 Sputum Acid Fast Bacilli Smear - Final Resulted 11/09/16 05:00 Sputum Acid Fast Bacilli Culture Pending Resulted Current Medications Medications (Trade) Dose Ordered Sig/Floyd Route PRN Reason Start Time Stop Time Status Last Admin Dose Admin Acetaminophen (Tylenol) 650 mg Q4H PRN ORAL Mild Pain (Pain Scale 1-3) 11/08/16 21:45 12/08/16 21:44 11/09/16 23:12 Albuterol/ Ipratropium (DuoNeb 0.5-3(2.5)mg/3ml) 3 ml Q4HRT HHN 11/08/16 19:00 11/13/16 18:59 11/11/16 07:20 Azithromycin (Zithromax) 250 mg Q24H ORAL 11/09/16 18:00 11/13/16 17:59 11/11/16 19:34 Ceftriaxone Sodium/Dextrose (Rocephin/D5W) 55 ml @ 110 mls/hr Q24H IVPB 11/08/16 19:00 11/14/16 18:59 11/11/16 19:34 Dextrose (Dextrose 50%) STAT PRN IV Hypoglycemia 11/08/16 20:45 12/08/16 20:44 Guaifenesin/ Codeine Phosphate (Robitussin with codeine) 5 ml Q4H PRN ORAL For Cough 11/08/16 21:45 12/08/16 21:44 Heparin Sodium (Porcine) (Heparin 5000 units/ml) 5,000 units EVERY 12 HOURS SUBQ 11/08/16 21:00 12/08/16 20:59 11/11/16 08:32 Current Medications Medications (Trade) Dose Ordered Sig/Floyd Route PRN Reason Start Time Stop Time Status Last Admin Dose Admin Acetaminophen (Tylenol) 650 mg Q4H PRN ORAL Mild Pain (Pain Scale 1-3) 11/08/16 21:45 12/08/16 21:44 11/09/16 23:12 Albuterol/ Ipratropium (DuoNeb 0.5-3(2.5)mg/3ml) 3 ml Q4HRT HHN 11/08/16 19:00 11/13/16 18:59 11/11/16 07:20 Azithromycin (Zithromax) 250 mg Q24H ORAL 11/09/16 18:00 11/13/16 17:59 11/11/16 19:34 Ceftriaxone Sodium/Dextrose (Rocephin/D5W) 55 ml @ 110 mls/hr Q24H IVPB 11/08/16 19:00 11/14/16 18:59 11/11/16 19:34 Dextrose (Dextrose 50%) STAT PRN IV Hypoglycemia 11/08/16 20:45 12/08/16 20:44 Guaifenesin/ Codeine Phosphate (Robitussin with codeine) 5 ml Q4H PRN ORAL For Cough 11/08/16 21:45 12/08/16 21:44 Heparin Sodium (Porcine) (Heparin 5000 units/ml) 5,000 units EVERY 12 HOURS SUBQ 11/08/16 21:00 12/08/16 20:59 11/11/16 08:32 VIVIEN VILLA DO Nov 11, 2016 20:25
[2016-11-12] VITALS: BP 96/62
--- NOTE | 2016-11-12 02:28 | Progress Note ---
DATE: 11/11/2016 INTERNAL MEDICINE PROGRESS NOTE SUBJECTIVE: The patient has no complaints. She feels better. ASD negative x3 now. OBJECTIVE: VITAL SIGNS: Blood pressure 122/65, pulse 86, and respirations 20. LUNGS: Few rhonchi. HEART: Regular rhythm and rate. Normal S1 and S2. ABDOMEN: Soft. EXTREMITIES: No edema. IMPRESSION: We will check room air oxygen saturation and discontinue oxygen if adequate. We will consider steroids per manager pacu. Isolation discontinued. Discharge planning. Following review of chest radiograph. Cruz De La Torre M.D. DR: PENNY JOB#: [id number] CC:
[2016-11-12] MEDS: DuoNeb 0.5-3(2.5)mg/3ml neb HHN SCH ×6 (03:00→23:00)
[2016-11-12 04:00] VITALS: BP 111/61
[2016-11-12 07:20] LABS: BASOPHILS % (AUTO) 0.3 % (0.0-2.0); EOSINOPHILS % (AUTO) 1.4 % (0.0-3.0); LYMPHOCYTES % (AUTO) 19.3 % (20.0-45.0); MEAN CORPUSCULAR HEMOGLOBIN 30.7 PG (27.0-31.0); MEAN CORPUSCULAR HGB CONC 32.9 G/DL (32.0-36.0); MEAN CORPUSCULAR VOLUME 93 FL (80-99); MEAN PLATELET VOLUME 5.3 FL (6.5-10.1); MONOCYTES % (AUTO) 9.2 % (1.0-10.0); NEUTROPHILS % (AUTO) 69.8 % (45.0-75.0); PLATELET COUNT 303 K/UL (150-450); RED BLOOD COUNT 2.71 M/UL (4.20-5.40); RED CELL DISTRIBUTION WIDTH 12.2 % (11.6-14.8); WHITE BLOOD COUNT 5.9 K/UL (4.8-10.8)
[2016-11-12 08:01] LABS: NIL (NEG) CONTROL SPOT COUNT 0 (0-9); PANEL A SPOT COUNT 0; PANEL B SPOT COUNT 0; POSITIVE CONTROL SPOT COUNT > 20; T SPOT TB NEGATIVE
[2016-11-12 08:16] VITALS: BP 115/54
[2016-11-12 08:16] LABS: ANION GAP 15 (5-15); CALCIUM 8.5 mg/dL (8.6-10.2); CARBON DIOXIDE 23 mEQ/L (20-30); CHLORIDE 103 mEQ/L (98-107); CREATININE 0.9 mg/dL (0.5-0.9); HEMOLYSIS 2; POTASSIUM 3.4 mEQ/L (3.4-4.9); SODIUM 141 mEQ/L (135-145)
--- NOTE | 2016-11-12 08:18 | Pulmonology Progress Note ---
Assessment/Plan Assessment/Plan 1. Bilateral pulmonary infiltrates, pneumonia with rheumatoid lung disease 2. History of hypertension 3. Anemia. 4. Malnutrition 5. Chronic kidney disease, stage 2. 6. Mild hyperglycemia. doing well RA titer +; Rheumatoid lung with pneumonia TB unlikely cont abx prednisone 20 mg qd dc planning per Dr De La Torre outpatient rheum consult Subjective Constitutional: Reports: no symptoms Allergies: Coded Allergies: No Known Allergies (Unverified , 10/02/15) Objective Last 24 Hour Vital Signs Date Time Temp Pulse Resp B/P Pulse Ox O2 Delivery O2 Flow Rate FiO2 11/12/16 04:00 99.7 87 20 111/61 92 Nasal Cannula 2.0 11/12/16 03:15 Nasal Cannula 2.0 28 11/12/16 03:14 Nasal Cannula 2.0 28 11/12/16 02:30 99.5 11/12/16 00:00 99.7 87 18 96/62 96 Nasal Cannula 2.0 11/11/16 23:30 Nasal Cannula 2.0 28 11/11/16 23:30 Nasal Cannula 2.0 28 11/11/16 19:30 Nasal Cannula 2.0 28 11/11/16 19:30 Nasal Cannula 2.0 28 11/11/16 19:00 98.6 91 20 109/61 97 Nasal Cannula 2.0 11/11/16 16:00 99.9 86 20 122/65 97 Nasal Cannula 2.0 11/11/16 15:05 Nasal Cannula 2.0 28 11/11/16 15:05 Nasal Cannula 2.0 28 11/11/16 11:55 99.1 83 22 106/62 97 Room Air 11/11/16 11:15 Nasal Cannula 2.0 28 11/11/16 11:15 Nasal Cannula 2.0 28 11/11/16 08:20 97.9 89 20 111/67 97 Room Air Intake and Output 11/11/16 11/12/16 19:00 07:00 Intake Total 240 ml 560 ml Balance 240 ml 560 ml Intake Oral 240 ml 560 ml # Voids 6 # Bowel Movements 2 Respiratory/Chest: crackles/rales Microbiology Date/Time Source Procedure Growth Status 11/10/16 01:15 Sputum Not Specified AFB Specimen Processing Tissue - Final Resulted 11/10/16 01:15 Sputum Not Specified Acid Fast Bacilli Smear - Final Resulted 11/10/16 01:15 Sputum Not Specified Acid Fast Bacilli Culture Pending Resulted Laboratory Tests 11/12/16 07:03: White Blood Count 5.9, Red Blood Count 2.71L, Hemoglobin 8.3L, Hematocrit 25.4L , Mean Corpuscular Volume 93, Mean Corpuscular Hemoglobin 30.7, Mean Corpuscular Hemoglobin Concent 32.9, Red Cell Distribution Width 12.2, Platelet Count 303, Mean Platelet Volume 5.3L, Neutrophils (%) (Auto) 69.8, Lymphocytes ( %) (Auto) 19.3L, Monocytes (%) (Auto) 9.2, Eosinophils (%) (Auto) 1.4, Basophils (%) (Auto) 0.3, Sodium Level [Pending], Potassium Level [Pending], Chloride Level [Pending], Carbon Dioxide Level [Pending], Blood Urea Nitrogen [ Pending], Creatinine [Pending], Estimat Glomerular Filtration Rate [Pending], Glucose Level [Pending], Calcium Level [Pending] Current Medications Medications (Trade) Dose Ordered Sig/Floyd Route PRN Reason Start Time Stop Time Status Last Admin Dose Admin Acetaminophen (Tylenol) 650 mg Q4H PRN ORAL Mild Pain (Pain Scale 1-3) 11/08/16 21:45 12/08/16 21:44 11/12/16 00:58 Albuterol/ Ipratropium (DuoNeb 0.5-3(2.5)mg/3ml) 3 ml Q4HRT HHN 11/08/16 19:00 11/13/16 18:59 11/12/16 07:23 Azithromycin (Zithromax) 250 mg Q24H ORAL 11/09/16 18:00 11/13/16 17:59 11/11/16 19:34 Ceftriaxone Sodium/Dextrose (Rocephin/D5W) 55 ml @ 110 mls/hr Q24H IVPB 11/08/16 19:00 11/14/16 18:59 11/11/16 19:34 Dextrose (Dextrose 50%) STAT PRN IV Hypoglycemia 11/08/16 20:45 12/08/16 20:44 Guaifenesin/ Codeine Phosphate (Robitussin with codeine) 5 ml Q4H PRN ORAL For Cough 11/08/16 21:45 12/08/16 21:44 Heparin Sodium (Porcine) (Heparin 5000 units/ml) 5,000 units EVERY 12 HOURS SUBQ 11/08/16 21:00 12/08/16 20:59 11/11/16 22:07 ABDIAS GRAFF Nov 12, 2016 08:18
[2016-11-12] MEDS: Heparin 5000 units/ml inj SUBQ SCH ×2 (09:04→21:29)
[2016-11-12 11:49] VITALS: BP 95/54
--- NOTE | 2016-11-12 12:57 | Diagnostic Imaging Report ---
Indication: Chest pain Technique: One view of the chest Comparison: 11/06/2016 Findings: There is increased bilateral parenchymal opacity, especially in the perihilar regions. There is slight blunting of the costophrenic sulci, greater than before, indicate small bilateral pleural effusions. The heart size is normal Impression: Bilateral parenchymal disease, worsening 11/06/2016. Nonspecific but likely representing pneumonia. Correlate with clinical findings
[2016-11-12 16:00] VITALS: BP 103/58
[2016-11-12] MEDS: Azithromycin 250mg tab ORAL SCH (18:45)
[2016-11-12] MEDS: cefTRIAXone 1 GM in D5W 55 ML IVPB SCH (18:46)
[2016-11-12 19:00] VITALS: BP 106/61
[2016-11-13] VITALS: BP 102/62
--- NOTE | 2016-11-13 02:59 | Progress Note ---
DATE: 11/12/2016 CARDIOLOGY PROGRESS NOTE SUBJECTIVE: AFB culture is negative. The patient still has congestion, but less short of breath. No hypoxia noted. Chest x-ray reveals worsening infiltrates. The patient is being started on steroids for presumed rheumatoid lung. Vital signs are stable. Clinical exam is unchanged. We will need to address further workup prior to discharge in view of chest radiograph findings. This will be discussed with medical reimbursement specialist, and discharge plan to be finalized with outpatient Rheumatology consult to be arranged. Cruz De La Torre M.D. DR: Joycelyn JOB#: [id number] CC:
[2016-11-13] MEDS: DuoNeb 0.5-3(2.5)mg/3ml neb HHN SCH ×4 (03:00→15:03)
[2016-11-13 04:00] VITALS: BP 101/61
[2016-11-13] MEDS: PredniSONE 20mg tab ORAL SCH (08:10)
[2016-11-13] MEDS: Heparin 5000 units/ml inj SUBQ SCH ×2 (08:12→21:41)
[2016-11-13 08:23] VITALS: BP 89/48
[2016-11-13] MEDS ORDERED: NS 250 ML IVPB ONE (08:45)
[2016-11-13] MEDS ORDERED: NS 275 ML IVPB SCH (09:45)
[2016-11-13 11:27] VITALS: BP 97/57
--- NOTE | 2016-11-13 12:49 | Pulmonology Progress Note ---
Assessment/Plan Assessment/Plan 1. Bilateral pulmonary infiltrates, pneumonia with rheumatoid lung disease 2. History of hypertension 3. Anemia. 4. Malnutrition 5. Chronic kidney disease, stage 2. 6. Mild hyperglycemia. doing well CXR lagging behind clinical improvement DC planning disc w Dr De La Torre RA titer +; Rheumatoid lung with pneumonia cont abx prednisone 20 mg qd rheum consult Subjective Constitutional: Reports: no symptoms, Denies: fever Respiratory: Denies: productive cough, shortness of breath Allergies: Coded Allergies: No Known Allergies (Unverified , 10/02/15) Objective Last 24 Hour Vital Signs Date Time Temp Pulse Resp B/P Pulse Ox O2 Delivery O2 Flow Rate FiO2 11/13/16 11:27 97.7 102 18 97/57 95 Room Air 11/13/16 10:57 90 16 98 Room Air 21 11/13/16 10:47 88 16 94 Room Air 11/13/16 08:23 104 18 89/48 93 Room Air 11/13/16 07:39 85 16 97 Room Air 11/13/16 07:30 82 16 92 Room Air 11/13/16 04:00 97.5 81 18 101/61 94 Room Air 11/13/16 03:00 Nasal Cannula 2.0 28 11/13/16 03:00 Nasal Cannula 2.0 28 11/13/16 00:00 99.1 90 18 102/62 94 Nasal Cannula 2.0 11/12/16 23:00 94 16 97 Nasal Cannula 2.0 28 11/12/16 23:00 Nasal Cannula 2.0 28 11/12/16 19:00 Nasal Cannula 2.0 28 11/12/16 19:00 96 16 97 Nasal Cannula 2.0 28 11/12/16 19:00 98.4 97 20 106/61 94 Nasal Cannula 2.0 11/12/16 16:00 99.0 81 20 103/58 97 Nasal Cannula 2.0 11/12/16 15:20 Nasal Cannula 2.0 28 11/12/16 15:20 Nasal Cannula 2.0 28 Intake and Output 11/12/16 11/13/16 19:00 07:00 Intake Total 960 ml 415 ml Balance 960 ml 415 ml Intake Oral 960 ml 360 ml IV Total 55 ml # Voids 2 6 General Appearance: no acute distress Respiratory/Chest: crackles/rales Cardiovascular: normal rate Current Medications Medications (Trade) Dose Ordered Sig/Floyd Route PRN Reason Start Time Stop Time Status Last Admin Dose Admin Acetaminophen (Tylenol) 650 mg Q4H PRN ORAL Mild Pain (Pain Scale 1-3) 11/08/16 21:45 12/08/16 21:44 11/12/16 00:58 Albuterol/ Ipratropium (DuoNeb 0.5-3(2.5)mg/3ml) 3 ml Q4HRT HHN 11/08/16 19:00 11/13/16 18:59 11/13/16 10:47 Azithromycin (Zithromax) 250 mg Q24H ORAL 11/09/16 18:00 11/13/16 17:59 11/12/16 18:45 Ceftriaxone Sodium/Dextrose (Rocephin/D5W) 55 ml @ 110 mls/hr Q24H IVPB 11/08/16 19:00 11/14/16 18:59 11/12/16 18:46 Dextrose (Dextrose 50%) STAT PRN IV Hypoglycemia 11/08/16 20:45 12/08/16 20:44 Guaifenesin/ Codeine Phosphate (Robitussin with codeine) 5 ml Q4H PRN ORAL For Cough 11/08/16 21:45 12/08/16 21:44 Heparin Sodium (Porcine) (Heparin 5000 units/ml) 5,000 units EVERY 12 HOURS SUBQ 11/08/16 21:00 12/08/16 20:59 11/13/16 08:12 Prednisone (predniSONE) 20 mg DAILY ORAL 11/13/16 09:00 12/13/16 08:59 11/13/16 08:10 ABDIAS GRAFF Nov 13, 2016 12:49
[2016-11-13 16:00] VITALS: BP 94/53
[2016-11-13] MEDS ORDERED: NS 275ml ONE (16:06)
[2016-11-13] MEDS ORDERED: Tubing IV Secondary IV ONE (16:06)
[2016-11-13] MEDS: Azithromycin 250mg tab ORAL SCH (18:33)
[2016-11-13] MEDS: cefTRIAXone 1 GM in D5W 55 ML IVPB SCH (18:33)
[2016-11-13 19:00] VITALS: BP 105/56
[2016-11-14 00:30] VITALS: BP 114/72
[2016-11-14 04:30] VITALS: BP 112/67
[2016-11-14 06:11] LABS: MTB PROCESSING Concentration (.)
[2016-11-14] MEDS: PredniSONE 20mg tab ORAL SCH (08:00)
[2016-11-14] MEDS: Heparin 5000 units/ml inj SUBQ SCH (08:02)
[2016-11-14 08:08] VITALS: BP 111/61
--- NOTE | 2016-11-14 08:19 | Progress Note ---
DATE: 11/13/2016 INTERNAL MEDICINE PROGRESS NOTE SUBJECTIVE: The case was discussed with Dr. Ardon. The patient was seen and evaluated. The patient has no chest pain. No shortness of breath. OBJECTIVE: VITAL SIGNS: She is oxygenating at 94% to 98% on room air. Blood pressure is 105/56, pulse 84, and respiratory rate 18. CHEST: Exam with few rhonchi. NECK: Supple. LUNGS: Lungs with few rhonchi. CARDIAC: Regular. Normal S1 and S2. ABDOMEN: Soft. EXTREMITIES: No edema. LABORATORY DATA: Laboratories from 11/12/2016 were noted. IMPRESSION: Rheumatoid lung. Chest x-ray appears worsening, however, clinically the patient is significantly improved. No signs of tuberculosis. PLAN: The patient is stable for outpatient followup on oral steroids with Rheumatology setup as well. She will have close monitoring of her pulmonary and metabolic parameters in that manner. She does not need home oxygen and despite her x-ray findings is without any symptoms at this time, and usually as discussed with Dr. Ardon chest x-ray response is expected to lack clinical finding. We will discharge as soon as [facility]'s approval is obtained. Cruz De La Torre M.D. DR: Sarahy JOB#: [id number] CC:
[2016-11-14 08:47] LABS: BASOPHILS % (AUTO) 0.4 % (0.0-2.0); LYMPHOCYTES % (AUTO) 28.3 % (20.0-45.0); MEAN CORPUSCULAR HEMOGLOBIN 29.9 PG (27.0-31.0); MEAN CORPUSCULAR VOLUME 93 FL (80-99); MEAN PLATELET VOLUME 5.4 FL (6.5-10.1); NEUTROPHILS % (AUTO) 62.3 % (45.0-75.0); PLATELET COUNT 390 K/UL (150-450); RED BLOOD COUNT 2.84 M/UL (4.20-5.40); RED CELL DISTRIBUTION WIDTH 12.2 % (11.6-14.8); WHITE BLOOD COUNT 5.1 K/UL (4.8-10.8)
[2016-11-14 09:06] LABS: ALANINE AMINOTRANSFERASE 21 U/L (3-33); ALBUMIN/GLOBULIN RATIO 0.5 (1.0-2.7); ANION GAP 15 (5-15); ASPARTATE AMINO TRANSFERASE 36 U/L (5-40); CALCIUM 9.1 mg/dL (8.6-10.2); CARBON DIOXIDE 24 mEQ/L (20-30); CHLORIDE 102 mEQ/L (98-107); CREATININE 0.9 mg/dL (0.5-0.9); HEMOLYSIS 0; POTASSIUM 3.5 mEQ/L (3.4-4.9); SODIUM 141 mEQ/L (135-145); TOTAL PROTEIN 7.5 g/dL (6.6-8.7)
--- NOTE | 2016-11-14 11:57 | Pulmonology Progress Note ---
Assessment/Plan Assessment/Plan 1. Bilateral pulmonary infiltrates, pneumonia with rheumatoid lung disease 2. History of hypertension 3. Anemia. 4. Malnutrition 5. Chronic kidney disease, stage 2. 6. Mild hyperglycemia. doing well CXR lagging behind clinical improvement DC planning I spoke with [facility] Humph[facility] and she agreed the patient can safely be discharged disc w Dr De La Torre RA titer +; Rheumatoid lung with pneumonia cont abx prednisone 20 mg qd rheum consult after dc Subjective Constitutional: Reports: no symptoms Allergies: Coded Allergies: No Known Allergies (Unverified , 10/02/15) Objective Last 24 Hour Vital Signs Date Time Temp Pulse Resp B/P Pulse Ox O2 Delivery O2 Flow Rate FiO2 11/14/16 08:08 97.4 74 21 111/61 97 Room Air 11/14/16 04:30 97.7 74 18 112/67 97 Room Air 11/14/16 00:30 97.0 76 18 114/72 95 Room Air 11/13/16 20:30 81 18 Room Air 11/13/16 19:00 98.0 84 18 105/56 94 Room Air 11/13/16 16:00 97.5 96 20 94/53 95 Room Air 11/13/16 15:15 88 16 98 Room Air 21 11/13/16 15:03 90 16 94 Room Air 21 Intake and Output 11/13/16 11/14/16 19:00 07:00 Intake Total 900 ml 470 ml Balance 900 ml 470 ml Intake Oral 900 ml 360 ml IV Total 110 ml # Voids 2 5 # Bowel Movements 1 Respiratory/Chest: crackles/rales Laboratory Tests 11/13/16 18:15: Hepatitis A IgM Antibody [Pending], Hepatitis B Surface Antigen [Pending], Hepatitis B Core IgM Antibody [Pending], Hepatitis C Antibody [Pending], HIV (1& 2) Antibody Rapid Negative 11/14/16 08:00: White Blood Count 5.1, Red Blood Count 2.84L, Hemoglobin 8.5L, Hematocrit 26.5L , Mean Corpuscular Volume 93, Mean Corpuscular Hemoglobin 29.9, Mean Corpuscular Hemoglobin Concent 32.0, Red Cell Distribution Width 12.2, Platelet Count 390, Mean Platelet Volume 5.4L, Neutrophils (%) (Auto) 62.3, Lymphocytes ( %) (Auto) 28.3, Monocytes (%) (Auto) 8.0, Eosinophils (%) (Auto) 1.0, Basophils (%) (Auto) 0.4, Sodium Level 141, Potassium Level 3.5, Chloride Level 102, Carbon Dioxide Level 24, Anion Gap 15, Blood Urea Nitrogen 16, Creatinine 0.9, Estimat Glomerular Filtration Rate , Glucose Level 117H, Calcium Level 9.1, Magnesium Level 2.0, Total Bilirubin 0.3, Aspartate Amino Transf (AST/SGOT) 36, Alanine Aminotransferase (ALT/SGPT) 21, Alkaline Phosphatase 106H, Pro-B-Type Natriuretic Peptide 1580H, Total Protein 7.5, Albumin 2.8L, Globulin 4.7, Albumin/Globulin Ratio 0.5L Current Medications Medications (Trade) Dose Ordered Sig/Floyd Route PRN Reason Start Time Stop Time Status Last Admin Dose Admin Acetaminophen (Tylenol) 650 mg Q4H PRN ORAL Mild Pain (Pain Scale 1-3) 11/08/16 21:45 12/08/16 21:44 11/12/16 00:58 Azithromycin (Zithromax) 250 mg Q24H ORAL 11/09/16 18:00 11/16/16 23:59 11/13/16 18:33 Dextrose (Dextrose 50%) STAT PRN IV Hypoglycemia 11/08/16 20:45 12/08/16 20:44 Guaifenesin/ Codeine Phosphate (Robitussin with codeine) 5 ml Q4H PRN ORAL For Cough 11/08/16 21:45 12/08/16 21:44 Heparin Sodium (Porcine) (Heparin 5000 units/ml) 5,000 units EVERY 12 HOURS SUBQ 11/08/16 21:00 12/08/16 20:59 11/14/16 08:02 Prednisone (predniSONE) 20 mg DAILY ORAL 11/13/16 09:00 12/13/16 08:59 11/14/16 08:00 ABDIAS GRAFF Nov 14, 2016 11:57
[2016-11-14 12:15] VITALS: BP 109/62
--- NOTE | 2016-11-14 12:18 | Diagnostic Imaging Report ---
Indication: SOB Technique: One view of the chest Comparison: 11/12/2016 Findings: Bilateral interstitial and alveolar infiltrates, predominantly perihilar, are stable to slightly improved, allowing for technical differences. No definite effusions. Heart size is normal Impression: Stable or slightly improved, still extensive, bilateral interstitial and alveolar infiltrates versus edema, over 2 days
[2016-11-14] MEDS ORDERED: PREDNISONE20 MG ORAL (15:40)
[2016-11-14 16:00] VITALS: BP 99/61
[2016-11-14] MEDS ORDERED: NS 275ml ONE (17:50)
--- NOTE | 2016-11-15 16:57 | Discharge Summary ---
Discharge Summary Hospital Course Date of Admission Nov 06, 2016 at 15:25 Date of Discharge Nov 14, 2016 at 17:51 Admitting Diagnosis pneumonitis HPI Leelee Ruelas is a 71 year old female who was admitted on Nov 06, 2016 at 15:25 for Pneumonitis Hospital Course [id number] Discharge Discharge Disposition Patient was discharged to Home (01) Discharge Diagnoses: Florence Rachel NP Nov 15, 2016 16:57
--- NOTE | 2016-11-16 02:38 | Discharge Summary 2 SIG ---
DATE OF ADMISSION: 11/06/2016 DATE OF DISCHARGE: 11/14/2016 FLIGHT ENGINEER PERFORMANCE QUALIFIED: Reji Ardon M.D. BRIEF HOSPITAL COURSE: The patient is a 71-year-old female, who presented to the emergency room with several weeks of progressive cough with congestion and shortness of breath that has been ongoing for the past few days despite oral antibiotics. The patient took a course of antibiotic almost two months ago and did not improve as she developed fever and chills. In the last couple of days, she was given additional antibiotics, however, symptoms continued. There was no history of recent travel. No history of asthma, COPD, or any lung disease. Chest x-ray on evaluation revealed interstitial infiltrates. Vital signs show fever of 100.6 degrees. EKG was sinus rhythm with no acute abnormalities. Dr. Ardon was consulted. The patient was placed on respiratory isolation. CAT scan of the chest showed extensive infiltrates with pneumatoceles. Sputum AFB and serology for tuberculosis was sent. Rheumatoid arthritis titer was positive. AFB sputum negative. TB spot and DNA are pending. The patient with probable rheumatoid lung with pneumonia. She was given prednisone 20 mg daily, and was advised outpatient follow up with Rheumatology. Subsequent chest x-ray showed worsening of infiltrates, however, clinically the patient was significantly improved. No signs of tuberculosis. The patient is stable for outpatient followup on oral steroids as well as Rheumatology follow up. She does not need home oxygen despite x-ray findings. [facility] clearance was obtained. The patient was eventually discharged home. FINAL DIAGNOSES: 1. Bilateral pulmonary infiltrates, with pneumonia with rheumatoid lung disease. 2. History of hypertension. 3. Anemia. 4. Severe protein-calorie malnutrition. 5. Chronic kidney disease stage 2. 6. Mild hyperglycemia. 7. Chronic kidney disease. Cruz De La Torre M.D. I have been assigned to dictate discharge summary on this account and I was not involved in the patient's management. Florence Rachel N.P. DR: Raffaele JOB#: [id number] CC: YASSINE
[2016-11-16 13:43] LABS: MTB DETECTION NAA Negative (Negative)
== END 2016-11-14 17:51 | disposition home or self-care (01) | DRG 193 ==
LOC: EMR 14:00 → 2E 15:25 → EDBEDREQ 19:44 → 2E 11-07 19:35 → 4E 11-08 18:46
DX: J18.9 Pneumonia, unspecified organism (principal); E43 Unspecified severe protein-calorie malnutrition; I95.9 Hypotension, unspecified; D64.9 Anemia, unspecified; E86.0 Dehydration; Z68.1 Body mass index [BMI] 19.9 or less, adult; M05.10 Rheumatoid lung disease with rheumatoid arthritis of unspecified site; I12.9 Hypertensive chronic kidney disease with stage 1 through stage 4 chronic kidney disease, or unspecified chronic kidney disease; N18.2 Chronic kidney disease, stage 2 (mild); R73.9 Hyperglycemia, unspecified; M81.0 Age-related osteoporosis without current pathological fracture; R09.02 Hypoxemia
CPT/HCPCS: 36415; 71010; 71250; 80048; 80053; 81003; 82164; 82270; 82533; 82607; 82746; 83540; 83550; 83605; 83735; 83880; 84443; 85007; 85025; 85651; 86039; 86431; 86703; 86705; 86709; 86803; 87040; 87070; 87086; 87116; 87205; 87340; 87556; 93005; 94640; 94664; J7620

== ENCOUNTER 2018-10-18 14:04 | Inpatient (IN) | payer MEDICARE, OTHER ==
[~2018-10-18] VITALS: Ht 157.5 cm; Wt 40.9 kg
[~2018-10-18 14:04] MED LIST changes: +ASPIR 8181 MG ORAL; +PREDNISONE20 MG ORAL; +ZITHROMAX250 MG ORAL
[2018-10-18] MEDS ORDERED: ALENDRONATE SOD10 MG ORAL ×2 (14:21→18:07)
[2018-10-18 14:25] VITALS: BP 138/80
--- NOTE | 2018-10-18 14:25 | NUR ---
ED Nurse Note: BROUGHT IN BY PT' SON FROM HOME DUE TO SOB AND WEAKNESS X 3 DAY. ORAL TEMP OF 100.1F. A/OX4. DENIES CP. PER PT' SON, PT BECAME WEAK AFTER GETTING CHILLS/COUGH COUPLE WEEKS AGO.
--- NOTE | 2018-10-18 14:34 | Emergency Room Report ---
History of Present Illness General Chief Complaint: Dyspnea/Respdistress Source: Patient, Family Member Present Illness HPI Patient is a 73-year-old female presented after increased fever and congestion and difficulty breathing. Patient gradual onset of symptoms over the past 2 days. She reports having subjective fever as well as nonproductive cough. Patient did not get a flu vaccine this year. She is followed at the [facility]. Patient had increased generalized weakness. Patient had been maintaining her weight. She is never been a smoker. Allergies: Coded Allergies: No Known Allergies (Unverified , 10/02/15) Patient History Past Medical History: see triage record : 5 Reviewed Nursing Documentation: PMH: Agreed; PSxH: Agreed Nursing Documentation-PMH Hx Cardiac Problems: No Hx Cancer: No Hx Gastrointestinal Problems: No Hx Neurological Problems: Yes - OSTEOPOROSIS LOWER BACK, RA Review of Systems All Other Systems: negative except mentioned in HPI Physical Exam Vital Signs Date Time Temp Pulse Resp B/P (MAP) Pulse Ox O2 Delivery O2 Flow Rate FiO2 10/18/18 14:18 100.0 94 26 120/64 89 Room Air Sp02 EP Interpretation: reviewed, normal General Appearance: normal inspection, alert, GCS 15, mild distress, Chronically Ill Head: atraumatic Eyes: bilateral eye PERRL ENT: normal ENT inspection, hearing grossly normal, normal voice Neck: normal inspection, supple, no bony tend, limited range of motion Respiratory: normal inspection, no retraction, wheezing Cardiovascular #1: regular rate, rhythm, no edema Gastrointestinal: normal inspection, normal bowel sounds, non tender, soft, no guarding, no hernia Genitourinary: no CVA tenderness Musculoskeletal: normal inspection, back normal, normal range of motion Neurologic: normal inspection, alert, oriented x3, responsive, mis specialist III-XII nml as tested, speech normal Psychiatric: normal inspection, judgement/insight normal, mood/affect normal Skin: normal inspection, normal color, no rash Medical Decision Making Diagnostic Impression: Primary Impression: Pneumonitis Additional Impression: Rheumatoid arthritis ER Course Patient presented for shortness of breath and generalized weakness. Differential diagnosis include was not limited to pneumonia, influenza, electrolyte abnormality, anemia among others. Because of complexity of patient' s case laboratory testing and imaging studies were ordered.Chest x-ray 1 view read by radiology showed bilateral patchy infiltrates with normal cardiac size. Patient was given IV fluids as well as IV antibiotics after blood cultures were obtained. Patient was noted to have a normal white blood count. Patient stated she felt better after some breathing treatments as well as IV fluids.Have some continued tachypnea.Dr. Isaak Herrera was contacted for inpatient management due to panel physician. Labs Test 10/18/18 14:40 White Blood Count 5.2 K/UL (4.8-10.8) Red Blood Count 3.75 M/UL (4.20-5.40) Hemoglobin 11.4 G/DL (12.0-16.0) Hematocrit 35.2 % (37.0-47.0) Mean Corpuscular Volume 94 FL (80-99) Mean Corpuscular Hemoglobin 30.5 PG (27.0-31.0) Mean Corpuscular Hemoglobin Concent 32.4 G/DL (32.0-36.0) Red Cell Distribution Width 13.0 % (11.6-14.8) Platelet Count 189 K/UL (150-450) Mean Platelet Volume 6.5 FL (6.5-10.1) Neutrophils (%) (Auto) 76.3 % (45.0-75.0) Lymphocytes (%) (Auto) 17.4 % (20.0-45.0) Monocytes (%) (Auto) 5.8 % (1.0-10.0) Eosinophils (%) (Auto) 0.1 % (0.0-3.0) Basophils (%) (Auto) 0.4 % (0.0-2.0) Urine Color Pale yellow Urine Appearance Clear Urine pH 6 (4.5-8.0) Urine Specific [place] 1.015 (1.005-1.035) Urine Protein 3+ (NEGATIVE) Urine Glucose (UA) Negative (NEGATIVE) Urine Ketones Negative (NEGATIVE) Urine Blood 5+ (NEGATIVE) Urine Nitrite Negative (NEGATIVE) Urine Bilirubin Negative (NEGATIVE) Urine Urobilinogen Normal MG/DL (0.0-1.0) Urine Leukocyte Esterase 1+ (NEGATIVE) Urine RBC 30-40 /HPF (0 - 2) Urine WBC 0-2 /HPF (0 - 2) Urine Squamous Epithelial Cells Occasional /LPF Urine Bacteria Occasional /HPF (NONE) Sodium Level 131 MMOL/L (136-145) Potassium Level 4.4 MMOL/L (3.5-5.1) Chloride Level 100 MMOL/L (98-107) Carbon Dioxide Level 22 MMOL/L (21-32) Anion Gap 10 mmol/L (5-15) Blood Urea Nitrogen 29 mg/dL (7-18) Creatinine 1.4 MG/DL (0.55-1.30) Estimat Glomerular Filtration Rate mL/min (>60) Glucose Level 111 MG/DL (74-106) Lactic Acid Level 1.50 mmol/L (0.4-2.0) Calcium Level 8.5 MG/DL (8.5-10.1) Phosphorus Level 2.7 MG/DL (2.5-4.9) Magnesium Level 1.9 MG/DL (1.8-2.4) Total Bilirubin 0.3 MG/DL (0.2-1.0) Aspartate Amino Transf (AST/SGOT) 40 U/L (15-37) Alanine Aminotransferase (ALT/SGPT) 15 U/L (12-78) Alkaline Phosphatase 82 U/L (46-116) Total Creatine Kinase 106 U/L (26-308) Creatine Kinase MB 1.6 NG/ML (0.0-3.6) Creatine Kinase MB Relative Index 1.5 Troponin I 0.000 ng/mL (0.000-0.056) Total Protein 9.8 G/DL (6.4-8.2) Albumin 2.8 G/DL (3.4-5.0) Globulin 7.0 g/dL Albumin/Globulin Ratio 0.4 (1.0-2.7) Lipase 197 U/L (73-393) EKG Diagnostic Results Rate: normal - 89 Rhythm: NSR ST Segments: no acute changes Rhythm Strip Diag. Results EP Interpretation: yes Rhythm: NSR - 82, no PVC's, no ectopy Last Vital Signs Date Time Temp Pulse Resp B/P (MAP) Pulse Ox O2 Delivery O2 Flow Rate FiO2 10/18/18 14:18 100.0 94 26 120/64 89 Room Air Status: improved Disposition: ADMITTED INPATIENT Condition: Stable Darian Fonseca MD Oct 18, 2018 14:34
--- NOTE | 2018-10-18 14:40 | NUR ---
ED Nurse Note: NOTIFIED DR. CARMONA ABOUT PT'S ORAL TEMP OF 100.1F
--- NOTE | 2018-10-18 14:43 | NUR ---
ED Nurse Note: BLOOD SPCIMENS, BLOOD CULTURES, URINE, AND INF A&B SENT DOWN TO THE LAB.
[2018-10-18] MEDS ORDERED: Albuterol/Ipratropium 3ml neb HHN ONE (14:45)
--- NOTE | 2018-10-18 14:56 | NUR ---
ED Nurse Note: ALL MEDS GIVEN AND PT IS RECEIVING BREATHING TREATMENT
[2018-10-18 15:04] LABS: APPEARANCE,URINE CLEAR; BILIRUBIN, URINE NEGATIVE (NEGATIVE); COLOR,URINE PALE YELLOW; GLUCOSE, URINE (UA) NEGATIVE (NEGATIVE); KETONES,URINE NEGATIVE (NEGATIVE); LEUKOCYTE ESTERASE ,URINE 1+ (NEGATIVE); NITRITE,URINE NEGATIVE (NEGATIVE); PH,URINE 6 (4.5-8.0); PROTEIN,URINE 3+ (NEGATIVE); UROBILINOGEN,URINE NORMAL MG/DL (0.0-1.0)
[2018-10-18 15:06] LABS: BASOPHILS % (AUTO) 0.4 % (0.0-2.0); EOSINOPHILS % (AUTO) 0.1 % (0.0-3.0); HEMATOCRIT 35.2 % (37.0-47.0); HEMOGLOBIN 11.4 G/DL (12.0-16.0); LYMPHOCYTES % (AUTO) 17.4 % (20.0-45.0); MEAN CORPUSCULAR VOLUME 94 FL (80-99); MONOCYTES % (AUTO) 5.8 % (1.0-10.0); NEUTROPHILS % (AUTO) 76.3 % (45.0-75.0); PLATELET COUNT 189 K/UL (150-450); RED BLOOD COUNT 3.75 M/UL (4.20-5.40); WHITE BLOOD COUNT 5.2 K/UL (4.8-10.8)
[2018-10-18 15:20] LABS: ANION GAP 10 mmol/L (5-15); BLOOD UREA NITROGEN 29 mg/dL (7-18); CALCIUM 8.5 MG/DL (8.5-10.1); CARBON DIOXIDE 22 MMOL/L (21-32); CHLORIDE 100 MMOL/L (98-107); CREATININE 1.4 MG/DL (0.55-1.30); POTASSIUM 4.4 MMOL/L (3.5-5.1); SODIUM 131 MMOL/L (136-145)
--- NOTE | 2018-10-18 15:22 | Diagnostic Imaging Report ---
EXAM: XR Chest, 1 View CLINICAL HISTORY: Shortness of breath TECHNIQUE: Frontal view of the chest. COMPARISON: Chest x-rays dated 11/14/16 FINDINGS: Lungs: Diffuse bilateral patchy interstitial and alveolar opacities. Pleural space: Unremarkable. The costophrenic angles are sharp. No visible pneumothorax. Heart: Unremarkable. No cardiomegaly. Mediastinum: Unremarkable. Bones/joints: Unremarkable. Vasculature: Atherosclerotic calcifications within the aortic arch. IMPRESSION: Diffuse bilateral patchy interstitial and alveolar opacities, which may represent pneumonia versus pulmonary edema.
[2018-10-18 15:34] LABS: ALANINE AMINOTRANSFERASE 15 U/L (12-78); ALBUMIN 2.8 G/DL (3.4-5.0); ALBUMIN/GLOBULIN RATIO 0.4 (1.0-2.7); ALKALINE PHOSPHATASE 82 U/L (46-116); ASPARTATE AMINO TRANSFERASE 40 U/L (15-37); BILIRUBIN,TOTAL 0.3 MG/DL (0.2-1.0); CKMB 1.6 NG/ML (0.0-3.6); CREATINE KINASE 106 U/L (26-308); PHOSPHORUS 2.7 MG/DL (2.5-4.9)
[2018-10-18] MEDS ORDERED: Azithromycin 500 MG in D5W 275 ML IVPB ONE (16:00)
[2018-10-18 16:10] VITALS: BP 94/65
[2018-10-18] MEDS ORDERED: ADVIL200 M2 ORAL (18:07)
[2018-10-18] MEDS ORDERED: cefTRIAXone 1 GM in NS 55 ML IVPB ONE (18:15)
[2018-10-18 18:22] VITALS: BP 111/89
[2018-10-18] MEDS ORDERED: Albuterol/Ipratropium 3ml neb HHN PRN (18:45)
[2018-10-18] MEDS ORDERED: Miralax 17gm pkt ORAL PRN (18:45)
[2018-10-18] MEDS ORDERED: Morphine Sulfate 2mg/ml Inj(IV/IM USE ONLY) IVP PRN (18:45)
--- NOTE | 2018-10-18 19:03 | NUR ---
HAND-OFF: Report given to GLORIA Mccann. Pt remain stable. Pt's son at the bedside. No s/s of distress.
[2018-10-18 19:05] VITALS: BP 95/48
--- NOTE | 2018-10-18 19:05 | NUR ---
ED Nurse Note: PT IS CALM RESTING IN BED, VITAL SIGNS ARE STABLE AT THE MOMENT, ERMD IS AWARE PT BP IS LOW. PER PT THAT IS HER NORMAL BP. PT DENIES PAIN. PT SON IS AT BEDISDE, PT IS AWAITING TO BE TRANSFERRED. PT SKIN INTACT, ON ROOM AIR, PT IS AOX4. PT IS [place] SPEAKING ONLY.
[2018-10-18 20:45] VITALS: BP 94/46
--- NOTE | 2018-10-18 20:45 | NUR ---
ED Nurse Note: telephone report given to GLORIA Rivers
--- NOTE | 2018-10-18 21:00 | NUR ---
NURSE NOTES: pt transferred from ER to telemetry unit pt arrived to unit in stable condition. no s/s of sob, no acute distress during transfer, pt not c/o pain at this time. will continue to monitor
--- NOTE | 2018-10-18 21:00 | NUR ---
ED Nurse Note: pt was transferred to TELE, with Siobhan RN and Eduardo EMT. pt wa accompanied with cardiac monitor technician pt vital signs are stable, pt is on room air, no signs of distress, pt denies pain, pt skin is intact. All belongings have been given to patient. Son: Sy took pt wallet home.
[2018-10-18] MEDS: Heparin 5000 units/ml inj SUBQ SCH (21:58)
[2018-10-18] MEDS ORDERED: Cefepime HCl 2 GM in D5W 110 ML IV SCH (22:00)
[2018-10-18] MEDS ORDERED: Vancomycin 750mg/NS 275ml IVPB SCH ×2 (22:00)
[2018-10-18] MEDS ORDERED: Vancomycin 1 GM in D5W 275 ML IV SCH (23:00)
[2018-10-19] VITALS (7 sets, daily range): BP systolic 97–134; BP diastolic 57–71
--- NOTE | 2018-10-19 03:00 | NUR ---
NURSE NOTES: pt in bed sleeping comfortable, son at bedside, safety precautions in place, no s/s of acute distress or pain noted. will continue hourly rounding to monitor pt.
--- NOTE | 2018-10-19 05:24 | NUR ---
NURSE NOTES: Called Dr. Perez regarding diet and possible venous duplex order for patient. Awaiting callback.
--- NOTE | 2018-10-19 06:27 | NUR ---
NURSE NOTES: pt awake and talking with the son, no acute distress during my shift, all needs met during my shift will endorse pt to incoming nurse
--- NOTE | 2018-10-19 07:07 | NUR ---
HAND-OFF: Report given to GLORIA Quinones.
[2018-10-19 07:20] LABS: HEMATOCRIT 29.2 % (37.0-47.0); HEMOGLOBIN 9.6 G/DL (12.0-16.0); MEAN CORPUSCULAR VOLUME 94 FL (80-99); PLATELET COUNT 173 K/UL (150-450); RED BLOOD COUNT 3.11 M/UL (4.20-5.40); RED CELL DISTRIBUTION WIDTH 13.1 % (11.6-14.8); WHITE BLOOD COUNT 2.8 K/UL (4.8-10.8)
[2018-10-19 07:39] LABS: ALBUMIN 2.1 G/DL (3.4-5.0); ANION GAP 7 mmol/L (5-15); BLOOD UREA NITROGEN 20 mg/dL (7-18); CALCIUM 8.1 MG/DL (8.5-10.1); CARBON DIOXIDE 23 MMOL/L (21-32); CHLORIDE 105 MMOL/L (98-107); CREATININE 1.2 MG/DL (0.55-1.30); PHOSPHORUS 2.9 MG/DL (2.5-4.9); POTASSIUM 4.3 MMOL/L (3.5-5.1); SODIUM 135 MMOL/L (136-145)
--- NOTE | 2018-10-19 07:42 | NUR ---
NURSE NOTES: Received report from GLORIA Barton. Patient in bed resting, AOx4, patient on oxygen 2L via NC. No active s/s cardiac, respiratory distress noticed at this time, denies pain at this time. Endorsed need of sputum culture, fever of 100.6 and one dose of Tylenol given. Temperature 98.2 at this time. IV on Left FA 20G, asymptomatic, patent, intact. Awaiting for Dr. Perez for diet order. Bed in lowest position, side rails upx2, call light within reach. Will continue to monitor.
--- NOTE | 2018-10-19 08:26 | NUR ---
CASE MANAGEMENT: INITIAL REVIEW 73 YO F PRESENTED TO OUR ED FROM HOME CC: DYSPNEA PMHx: OSTEOPOROSIS LOWER BACK. SI:PNEUMONITIS/RA T 100 HR 94 RR 26 B/P 120/64 SATS 89% ON RA NA 131 BUN 29 CR 1.4 GLU 111 AST 40 IS: NS BOLUS X2 DUONEB HHN X1 TYLENOL PO X1 AZITHROMYCIN IV X1 PATIENT ADMITTED TO TELE 10/18/2018 @ 1855 DCP: PATIENT TO BE DISCHARGED TO HOME ONCE MEDICALLY CLEARED. PLAN OF CARE: ID CONSULT SPUTUM CX Addendum: 10/20/18 at 1744 by Karuna Granados CM INTERQUAL MET
[2018-10-19] MEDS: Heparin 5000 units/ml inj SUBQ SCH ×2 (08:34→20:43)
[2018-10-19] MEDS ORDERED: Cefepime 1gm in D5W 55ml IVPB SCH (10:00)
--- NOTE | 2018-10-19 12:55 | Consultation ---
History of Present Illness General Date patient seen: Oct 19, 2018 Chief Complaint: Dyspnea/Respdistress Present Illness HPI 73-year-old female with hx of Rheumatic arthritis presented to ER with CC of fever and congestion and difficulty breathing with gradual onset of symptoms over the past 2 days. She reports having subjective fever as well as nonproductive cough. She was febrile in ER and admitted for further management. Allergies: Coded Allergies: No Known Allergies (Unverified , 10/02/15) Medication History Scheduled Alendronate Sodium* (Fosamax*), Unknown Dose ORAL DAILY, (Reported) Aspirin* (Aspir 81*), 81 MG ORAL DAILY, (Reported) Miscellaneous Medications Calcium Carbonate (Calcium), 500 MG PO, (Reported) Ibuprofen* (Advil*), Unknown Dose ORAL, (Reported) Discontinued Medications Alendronate Sodium* (Fosamax*), 10 MG ORAL DAILY, (Reported) Discontinued Reason: Pt stopped taking med Prednisone* (Prednisone*), 20 MG ORAL DAILY, (Reported) Discontinued Reason: Pt stopped taking med Patient History Healthcare decision maker Resuscitation status Full Code Advanced Directive on File No Past Medical/Surgical History Past Medical/Surgical History: (1) Rheumatoid arthritis Review of Systems Respiratory: Reports: cough, shortness of breath All Other Systems: negative except mentioned in HPI Physical Exam General Appearance: WD/WN Lines, tubes and drains: peripheral HEENT: normocephalic, atraumatic Neck: non-tender, normal alignment Respiratory/Chest: chest wall non-tender, lungs clear Breasts: no masses Cardiovascular/Chest: normal peripheral pulses Abdomen: normal bowel sounds Genitourinary/Rectal: normal genital exam Last 24 Hour Vital Signs Date Time Temp Pulse Resp B/P (MAP) Pulse Ox O2 Delivery O2 Flow Rate FiO2 10/19/18 09:00 Nasal Cannula 2.0 Nasal Cannula 2.0 10/19/18 08:00 75 10/19/18 08:00 98.2 71 18 113/61 (78) 98 10/19/18 06:51 82 16 Nasal Cannula 2.0 28 10/19/18 04:00 98.4 85 20 97/67 (77) 98 10/19/18 04:00 75 10/19/18 02:21 99.3 10/19/18 00:00 94 10/19/18 00:00 100.6 97 20 110/57 (74) 99 10/18/18 23:37 Nasal Cannula 2.0 Nasal Cannula 2.0 10/18/18 22:04 94 18 99 Nasal Cannula 2.0 28 10/18/18 21:54 78 18 98 Nasal Cannula 2.0 28 10/18/18 21:54 78 18 Nasal Cannula 2.0 28 10/18/18 21:41 84 10/18/18 21:00 98.9 78 21 94/46 97 Room Air 10/18/18 20:45 98.9 78 21 94/46 97 Room Air 10/18/18 19:05 99.5 77 20 95/48 95 Room Air 10/18/18 18:22 80 24 111/89 94 Room Air 10/18/18 16:10 99.5 98 22 94/65 94 Room Air 10/18/18 15:19 99.5 10/18/18 14:55 92 23 99 Room Air 10/18/18 14:47 21 10/18/18 14:47 90 25 99 Room Air 10/18/18 14:47 90 25 Room Air 10/18/18 14:25 96 25 Room Air 10/18/18 14:25 100.1 96 25 138/80 100 Room Air 10/18/18 14:18 100.0 94 26 120/64 89 Room Air Intake and Output 10/18/18 10/19/18 19:00 07:00 Intake Total 1275 ml 495 ml Balance 1275 ml 495 ml IV Total 1275 ml 495 ml # Voids 1 2 Laboratory Tests Test 10/18/18 14:40 10/19/18 05:10 White Blood Count 5.2 K/UL (4.8-10.8) 2.8 K/UL (4.8-10.8) L Red Blood Count 3.75 M/UL (4.20-5.40) L 3.11 M/UL (4.20-5.40) L Hemoglobin 11.4 G/DL (12.0-16.0) L 9.6 G/DL (12.0-16.0) L Hematocrit 35.2 % (37.0-47.0) L 29.2 % (37.0-47.0) L Mean Corpuscular Volume 94 FL (80-99) 94 FL (80-99) Mean Corpuscular Hemoglobin 30.5 PG (27.0-31.0) 30.8 PG (27.0-31.0) Mean Corpuscular Hemoglobin Concent 32.4 G/DL (32.0-36.0) 32.8 G/DL (32.0-36.0) Red Cell Distribution Width 13.0 % (11.6-14.8) 13.1 % (11.6-14.8) Platelet Count 189 K/UL (150-450) 173 K/UL (150-450) Mean Platelet Volume 6.5 FL (6.5-10.1) 6.1 FL (6.5-10.1) L Neutrophils (%) (Auto) 76.3 % (45.0-75.0) H % (45.0-75.0) Lymphocytes (%) (Auto) 17.4 % (20.0-45.0) L % (20.0-45.0) Monocytes (%) (Auto) 5.8 % (1.0-10.0) % (1.0-10.0) Eosinophils (%) (Auto) 0.1 % (0.0-3.0) % (0.0-3.0) Basophils (%) (Auto) 0.4 % (0.0-2.0) % (0.0-2.0) Urine Color Pale yellow Urine Appearance Clear Urine pH 6 (4.5-8.0) Urine Specific Rico 1.015 (1.005-1.035) Urine Protein 3+ (NEGATIVE) H Urine Glucose (UA) Negative (NEGATIVE) Urine Ketones Negative (NEGATIVE) Urine Blood 5+ (NEGATIVE) H Urine Nitrite Negative (NEGATIVE) Urine Bilirubin Negative (NEGATIVE) Urine Urobilinogen Normal MG/DL (0.0-1.0) Urine Leukocyte Esterase 1+ (NEGATIVE) H Urine RBC 30-40 /HPF (0 - 2) H Urine WBC 0-2 /HPF (0 - 2) Urine Squamous Epithelial Cells Occasional /LPF Urine Bacteria Occasional /HPF (NONE) Sodium Level 131 MMOL/L (136-145) L 135 MMOL/L (136-145) L Potassium Level 4.4 MMOL/L (3.5-5.1) 4.3 MMOL/L (3.5-5.1) Chloride Level 100 MMOL/L (98-107) 105 MMOL/L (98-107) Carbon Dioxide Level 22 MMOL/L (21-32) 23 MMOL/L (21-32) Anion Gap 10 mmol/L (5-15) 7 mmol/L (5-15) Blood Urea Nitrogen 29 mg/dL (7-18) H 20 mg/dL (7-18) H Creatinine 1.4 MG/DL (0.55-1.30) H 1.2 MG/DL (0.55-1.30) Estimat Glomerular Filtration Rate mL/min (>60) mL/min (>60) Glucose Level 111 MG/DL (74-106) H 90 MG/DL (74-106) Lactic Acid Level 1.50 mmol/L (0.4-2.0) Calcium Level 8.5 MG/DL (8.5-10.1) 8.1 MG/DL (8.5-10.1) L Phosphorus Level 2.7 MG/DL (2.5-4.9) 2.9 MG/DL (2.5-4.9) Magnesium Level 1.9 MG/DL (1.8-2.4) Total Bilirubin 0.3 MG/DL (0.2-1.0) Aspartate Amino Transf (AST/SGOT) 40 U/L (15-37) H Alanine Aminotransferase (ALT/SGPT) 15 U/L (12-78) Alkaline Phosphatase 82 U/L (46-116) Total Creatine Kinase 106 U/L (26-308) Creatine Kinase MB 1.6 NG/ML (0.0-3.6) Creatine Kinase MB Relative Index 1.5 Troponin I 0.000 ng/mL (0.000-0.056) Total Protein 9.8 G/DL (6.4-8.2) H Albumin 2.8 G/DL (3.4-5.0) L 2.1 G/DL (3.4-5.0) L Globulin 7.0 g/dL Albumin/Globulin Ratio 0.4 (1.0-2.7) L Lipase 197 U/L (73-393) Differential Total Cells Counted 100 Neutrophils % (Manual) 73 % (45-75) Lymphocytes % (Manual) 22 % (20-45) Monocytes % (Manual) 5 % (1-10) Eosinophils % (Manual) 0 % (0-3) Basophils % (Manual) 0 % (0-2) Band Neutrophils 0 % (0-8) Platelet Estimate Adequate Platelet Morphology Normal Red Blood Cell Morphology Normal Microbiology Date/Time Source Procedure Growth Status 10/18/18 15:00 Nasal Nares Influenza Types A,B Antigen (JAIME) - Final Complete Height (Feet): 5 Height (Inches): 2.00 Weight (Pounds): 93 Medications Current Medications Medications (Trade) Dose Ordered Sig/Floyd Route PRN Reason Start Time Stop Time Status Last Admin Dose Admin Acetaminophen (Tylenol) 650 mg Q4H PRN ORAL FEVER 10/18/18 18:45 11/17/18 18:44 10/18/18 23:54 Albuterol/ Ipratropium (Albuterol/ Ipratropium) 3 ml Q4H PRN HHN Shortness of Breath 10/18/18 18:45 10/23/18 18:44 10/18/18 21:54 Cefepime HCl 1 gm/ Dextrose 55 ml @ 110 mls/hr Q24H IVPB 10/19/18 10:00 10/26/18 09:59 10/19/18 10:44 Dextrose (Dextrose 50%) 25 ml Q30M PRN IV Hypoglycemia 10/18/18 18:45 11/17/18 18:44 Dextrose (Dextrose 50%) 50 ml Q30M PRN IV Hypoglycemia 10/18/18 18:45 11/17/18 18:44 Heparin Sodium (Porcine) (Heparin 5000 units/ml) 5,000 units EVERY 12 HOURS SUBQ 10/18/18 21:00 11/17/18 20:59 10/19/18 08:34 Morphine Sulfate (Morphine Sulfate) 2 mg Q4H PRN IVP Severe Pain (Pain Scale 7-10) 10/18/18 18:45 10/25/18 18:44 Ondansetron HCl (Zofran) 4 mg Q6H PRN IVP Nausea & Vomiting 10/18/18 18:45 11/17/18 18:44 Polyethylene Glycol (Miralax) 17 gm DAILYPRN PRN ORAL Constipation 10/18/18 18:45 11/17/18 18:44 Vancomycin HCl (Vanco rx to dose) 1 ea DAILY PRN MISC Per rx protocol 10/18/18 21:15 11/17/18 21:14 Assessment/Plan Problem List: (1) Acute respiratory failure ICD Codes: J96.00 - Acute respiratory failure, unspecified whether with hypoxia or hypercapnia SNOMED: 49984119 (2) Pneumonia ICD Codes: J18.9 - Pneumonia, unspecified organism SNOMED: 697291539 (3) Severe anemia ICD Codes: D64.9 - Anemia, unspecified SNOMED: 006066496 (4) Rheumatoid arthritis ICD Codes: M06.9 - Rheumatoid arthritis, unspecified SNOMED: 78724351 Assessment/Plan check sputum iv abx respiratory treatment anemia w/u chest pt dvt prophylaxis. Stephan Perez MD Oct 19, 2018 12:55
[2018-10-19] MEDS ORDERED: Promethazine/Codeine 5ml UD ORAL PRN ×2 (13:00→14:30)
--- NOTE | 2018-10-19 13:30 | History and Physical Report ---
DATE OF ADMISSION: 10/18/2018 DATE AND TIME SEEN: On 10/19/2018 at 8 a.m. CONSULTANTS: 1. Stephan Perez M.D. 2. Ladarius High M.D. CHIEF COMPLAINT: Fever, shortness of breath, and pneumonia. BRIEF HISTORY: This is a 73-year-old female, who lives at home, complaining of fever and shortness of breath for three days getting worse, had a cold prior to that. The patient came to [facility] last night, diagnosed with pneumonia and shortness of breath and admitted to telemetry for further care. Currently, O2 NC, calm, slight short of breath, in bed. No complaint. REVIEW OF SYSTEMS: No chest pain. Slight short of breath. No nausea, vomiting, or diarrhea. PAST MEDICAL HISTORY: Includes rheumatoid arthritis and neuropathy. PAST SURGICAL HISTORY: None. MEDICATIONS: Include cefepime, vancomycin, heparin, Zofran, morphine, Tylenol, and albuterol. ALLERGIES: Denies. SOCIAL HISTORY: No smoking. No alcohol. No intravenous drug abuse. FAMILY HISTORY: Noncontributory. PHYSICAL EXAMINATION: GENERAL: Calm in bed, oriented x3, slight short of breath. VITAL SIGNS: Temperature is 98 degrees, pulse 82, respirations 20, and blood pressure 97/67. CARDIOVASCULAR: No murmur. LUNGS: Poor air exchange. ABDOMEN: Bowel sounds distant. EXTREMITIES: No cyanosis or edema. NEUROLOGIC: The patient moves all extremities, slightly weak. LABORATORY AND DIAGNOSTIC DATA: Labs at this time show white count 2.8, hemoglobin and hematocrit 9.6/29, and platelets 173. BMP shows sodium 135, BUN 20, otherwise albumin 2.1. Urinalysis shows 1+ leukocyte esterase. ASSESSMENT: 1. Fever. 2. Shortness of breath. 3. Rheumatoid arthritis. 4. UTI. 5. Pneumonia. 6. Leukopenia. 7. Anemia. 8. Malnutrition. 9. Neuropathy. PLAN: 1. O2 and pulmonary treatment. 2. Antibiotics per Infectious Disease. 3. Pain control. 4. Dietary followup. 5. CBC and BMP in the morning. Isaak Herrera D.O. DR: ANALIA JOB#: [id number] CC:
--- NOTE | 2018-10-19 14:18 | NUR ---
TRANSFER TO FLOOR: Patient transferred to 4E , per Dr. Perez. Report given to GLORIA Cash. Belongings and medications given to patient. Family and or S/O informed of transfer.
[2018-10-19] MEDS ORDERED: Miralax 17gm pkt ORAL PRN (14:30)
--- NOTE | 2018-10-19 14:30 | NUR ---
NURSE NOTES: Received Patient from [place] from tele. Patient is alert and oriented x4. Denies any pain or discomfort @ this time. V/S stable. Temp is 99.3 oral.Skin intact, IV on right forearm intact, no s/s of infiltration. Belonging was checked.All belongings accounted for. Re-orientation given about the unit. Call light within reach, bed is in lowest position and locked. Will continue plan of care.
[2018-10-19] MEDS ORDERED: Albuterol/Ipratropium 3ml neb HHN PRN (14:45)
[2018-10-19] MEDS ORDERED: Morphine Sulfate 2mg/ml Inj(IV/IM USE ONLY) IVP PRN (14:45)
--- NOTE | 2018-10-19 16:20 | NUR ---
NURSE NOTES: collected sputum and urine and sent to lab.
--- NOTE | 2018-10-19 17:09 | NUR ---
NURSE NOTES: Given tylenol 650mg due to elevated temp 100.6 Cooling measure done. Will continue to monitor. Offered liquid.
--- NOTE | 2018-10-19 18:00 | NUR ---
NURSE NOTES: Patient's temp is 100.4 offered fluid and cooling measures done.
--- NOTE | 2018-10-19 19:17 | NUR ---
HAND-OFF: Report given to Adriano.
--- NOTE | 2018-10-19 19:17 | NUR ---
NURSE NOTES: Received patient on bed awake, no s/s of any distress, denies any pain, IV line patent and intact, bed in low position and locked, call light within reach, will continue to monitor.
[2018-10-19] MEDS: Theophylline ER 100mg ORAL SCH (20:42)
[2018-10-19] MEDS ORDERED: Theophylline ER 100mg ORAL SCH (21:00)
[2018-10-20] VITALS: BP 106/65
[2018-10-20 04:00] VITALS: BP 101/51
[2018-10-20 07:07] LABS: BASOPHILS % (AUTO) 0.4 % (0.0-2.0); HEMOGLOBIN 10.2 G/DL (12.0-16.0); LYMPHOCYTES % (AUTO) 41.9 % (20.0-45.0); MEAN CORPUSCULAR VOLUME 93 FL (80-99); MONOCYTES % (AUTO) 16.2 % (1.0-10.0); NEUTROPHILS % (AUTO) 40.5 % (45.0-75.0); PLATELET COUNT 214 K/UL (150-450); RED BLOOD COUNT 3.34 M/UL (4.20-5.40); RED CELL DISTRIBUTION WIDTH 13.2 % (11.6-14.8); WHITE BLOOD COUNT 3.7 K/UL (4.8-10.8)
[2018-10-20 07:24] LABS: ANION GAP 9 mmol/L (5-15); BLOOD UREA NITROGEN 16 mg/dL (7-18); CALCIUM 8.9 MG/DL (8.5-10.1); CARBON DIOXIDE 24 MMOL/L (21-32); CHLORIDE 106 MMOL/L (98-107); CREATININE 1.2 MG/DL (0.55-1.30); POTASSIUM 3.9 MMOL/L (3.5-5.1); SODIUM 138 MMOL/L (136-145)
--- NOTE | 2018-10-20 07:34 | NUR ---
HAND-OFF: Report given to Zakiya CASTRO.
[2018-10-20 08:00] VITALS: BP 93/52
--- NOTE | 2018-10-20 08:29 | NUR ---
NURSE NOTES: Patient is alert and oriented,respirations are unlabored,patient ate breakfast,no complaints at this time,call light within reach.
[2018-10-20 08:39] LABS: % IRON SATURATION 10 % (15-50); IRON 19 ug/dL (50-175); TOTAL IRON BINDING CAPACITY 192 ug/dL (250-450)
[2018-10-20 08:41] LABS: LACTATE DEHYDROGENASE 244 U/L (81-234)
[2018-10-20] MEDS: Theophylline ER 100mg ORAL SCH ×2 (09:11→21:20)
[2018-10-20] MEDS: Vancomycin 500mg/D5W 110ml IVPB SCH ×2 (09:11)
[2018-10-20] MEDS: Heparin 5000 units/ml inj SUBQ SCH ×2 (09:13→21:20)
[2018-10-20] MEDS: Cefepime HCl 1 GM in D5W 55 ML IVPB SCH (10:35)
[2018-10-20 12:00] VITALS: BP 111/69
--- NOTE | 2018-10-20 12:04 | Consultation ---
History of Present Illness General Date patient seen: Oct 20, 2018 Chief Complaint: Dyspnea/Respdistress Present Illness HPI 73 y /o F with hx of RA, osteoporosis presents to ED on 10/18 with fever, congestion, generalized weakness and gradual onset of difficulty breathing over 2 days. +Subjective fevers as well as non productive cough. Did not got Flu vaccine this year. Denied CP, SOB, n/v/d Allergies: Coded Allergies: No Known Allergies (Unverified , 10/02/15) Medication History Scheduled Alendronate Sodium* (Fosamax*), Unknown Dose ORAL DAILY, (Reported) Aspirin* (Aspir 81*), 81 MG ORAL DAILY, (Reported) Miscellaneous Medications Calcium Carbonate (Calcium), 500 MG PO, (Reported) Ibuprofen* (Advil*), Unknown Dose ORAL, (Reported) Discontinued Medications Alendronate Sodium* (Fosamax*), 10 MG ORAL DAILY, (Reported) Discontinued Reason: Pt stopped taking med Prednisone* (Prednisone*), 20 MG ORAL DAILY, (Reported) Discontinued Reason: Pt stopped taking med Patient History Healthcare decision maker Resuscitation status Full Code Advanced Directive on File No Patient History Narrative Pmhx: as above Shx: No smoking. No alcohol. No intravenous drug abuse. Fhx: non contributory Review of Systems All Other Systems: negative except mentioned in HPI Physical Exam Physical Exam Narrative GENERAL: Calm in bed, oriented x3, slight short of breath. CARDIOVASCULAR: No murmur. LUNGS: Poor air exchange. ABDOMEN: Bowel sounds distant. EXTREMITIES: No cyanosis or edema. NEUROLOGIC: The patient moves all extremities, slightly weak. Last 24 Hour Vital Signs Date Time Temp Pulse Resp B/P (MAP) Pulse Ox O2 Delivery O2 Flow Rate FiO2 10/20/18 08:00 98.1 97 18 93/52 (66) 93 10/20/18 07:22 77 16 Room Air 21 10/20/18 04:00 98.0 80 18 101/51 (68) 96 10/20/18 00:00 98.7 84 18 106/65 (79) 95 10/19/18 21:13 84 18 Room Air 21 10/19/18 21:00 Nasal Cannula 2.0 Nasal Cannula 2.0 10/19/18 20:00 99.1 89 18 134/71 (92) 94 10/19/18 17:27 100.4 10/19/18 16:00 100.6 86 18 106/58 (74) 92 10/19/18 14:20 99.3 88 18 113/66 (82) 97 10/19/18 12:00 98.3 83 18 99/62 (74) 99 10/19/18 12:00 83 Intake and Output 10/19/18 10/20/18 18:59 06:59 Intake Total 730 ml Balance 730 ml Intake Oral 730 ml # Voids 2 Laboratory Tests Test 10/19/18 14:30 10/20/18 06:20 10/20/18 06:55 Urine Random Total Protein 49 MG/DL (< 11.9) H Urine Total Protein Pending Urine Albumin (%) Pending Urine Exsvs-4-Aovkpytvc (%) Pending Urine Outww-4-Ccthltimc (%) Pending Urine Beta-Globulin (%) Pending Urine Gamma Globulin (%) Pending Ur Protein Electrophoresis M-Sharan Pending Urine Protein Electrophoresis Intrp Pending White Blood Count 3.7 K/UL (4.8-10.8) L Red Blood Count 3.34 M/UL (4.20-5.40) L Hemoglobin 10.2 G/DL (12.0-16.0) L Hematocrit 31.0 % (37.0-47.0) L Mean Corpuscular Volume 93 FL (80-99) Mean Corpuscular Hemoglobin 30.6 PG (27.0-31.0) Mean Corpuscular Hemoglobin Concent 33.0 G/DL (32.0-36.0) Red Cell Distribution Width 13.2 % (11.6-14.8) Platelet Count 214 K/UL (150-450) Mean Platelet Volume 6.0 FL (6.5-10.1) L Neutrophils (%) (Auto) 40.5 % (45.0-75.0) L Lymphocytes (%) (Auto) 41.9 % (20.0-45.0) Monocytes (%) (Auto) 16.2 % (1.0-10.0) H Eosinophils (%) (Auto) 1.0 % (0.0-3.0) Basophils (%) (Auto) 0.4 % (0.0-2.0) Differential Total Cells Counted 100 Neutrophils % (Manual) 34 % (45-75) L Lymphocytes % (Manual) 52 % (20-45) H Monocytes % (Manual) 8 % (1-10) Eosinophils % (Manual) 1 % (0-3) Basophils % (Manual) 0 % (0-2) Band Neutrophils 5 % (0-8) Reactive Lymphocytes Occasional Platelet Estimate Adequate Platelet Morphology Normal Red Blood Cell Morphology Normal Rouleau Erythrocyte Sedimentation Rate 117 MM/HR (0-30) H Reticulocyte Count Pending Prothrombin Time 10.8 SEC (9.30-11.50) Prothromb Time International Ratio 1.0 (0.9-1.1) Activated Partial Thromboplast Time 38 SEC (23-33) H Sodium Level 138 MMOL/L (136-145) Potassium Level 3.9 MMOL/L (3.5-5.1) Chloride Level 106 MMOL/L (98-107) Carbon Dioxide Level 24 MMOL/L (21-32) Anion Gap 9 mmol/L (5-15) Blood Urea Nitrogen 16 mg/dL (7-18) Creatinine 1.2 MG/DL (0.55-1.30) Estimat Glomerular Filtration Rate mL/min (>60) Glucose Level 98 MG/DL (74-106) Calcium Level 8.9 MG/DL (8.5-10.1) Iron Level 19 ug/dL (50-175) L Total Iron Binding Capacity 192 ug/dL (250-450) L Percent Iron Saturation 10 % (15-50) L Unsaturated Iron Binding 173 ug/dL (112-346) Lactate Dehydrogenase 244 U/L (81-234) H Carcinoembryonic Antigen Pending Vitamin B12 Level 716 PG/ML (193-986) Folate 12.6 NG/ML (8.6-58.9) Random Vancomycin Level 4.4 ug/mL Stool Occult Blood Negative (NEGATIVE) Height (Feet): 5 Height (Inches): 2.00 Weight (Pounds): 93 Medications Current Medications Medications (Trade) Dose Ordered Sig/Floyd Route PRN Reason Start Time Stop Time Status Last Admin Dose Admin Acetaminophen (Tylenol) 650 mg Q4H PRN ORAL T>100.5 10/19/18 14:45 11/17/18 18:44 10/19/18 16:57 Albuterol/ Ipratropium (Albuterol/ Ipratropium) 3 ml Q4H PRN HHN Shortness of Breath 10/19/18 14:45 10/23/18 18:44 Cefepime HCl 1 gm/ Dextrose 55 ml @ 110 mls/hr Q24H IVPB 10/20/18 10:00 10/26/18 09:59 10/20/18 10:35 Dextrose (Dextrose 50%) 25 ml Q30M PRN IV Hypoglycemia 10/19/18 14:45 11/17/18 18:44 Dextrose (Dextrose 50%) 50 ml Q30M PRN IV Hypoglycemia 10/19/18 14:45 11/17/18 18:44 Heparin Sodium (Porcine) (Heparin 5000 units/ml) 5,000 units EVERY 12 HOURS SUBQ 10/19/18 21:00 11/17/18 20:59 10/20/18 09:13 Morphine Sulfate (Morphine Sulfate) 2 mg Q4H PRN IVP Severe Pain (Pain Scale 7-10) 10/19/18 14:45 10/25/18 18:44 Ondansetron HCl (Zofran) 4 mg Q6H PRN IVP Nausea & Vomiting 10/19/18 14:30 11/17/18 14:29 Polyethylene Glycol (Miralax) 17 gm DAILYPRN PRN ORAL Constipation 10/19/18 14:30 11/17/18 14:29 Promethazine HCl/ Codeine (Phenergan with Codeine) 5 ml Q4H PRN ORAL For Cough 10/19/18 14:30 11/18/18 14:29 Theophylline (Mt-Dur) 100 mg EVERY 12 HOURS ORAL 10/19/18 21:00 11/18/18 20:59 10/20/18 09:11 Vancomycin HCl (Vanco rx to dose) 1 ea DAILY PRN MISC Per rx protocol 10/19/18 09:00 11/18/18 08:59 Vancomycin HCl 500 mg/Dextrose 110 ml @ 110 mls/hr DAILY IVPB 10/20/18 09:00 10/25/18 08:59 10/20/18 09:11 Assessment/Plan Assessment/Plan Abx: Ceftriaxone x1 32 Azithromycin x1 3/2 IV Vancomycin 10/18- Cefepime 10/18- Assessment: Sepsis PNA, probable Flu (despite neg screen test) -CXR: Diffuse bilateral patchy interstitial and alveolar opacities, which may represent pneumonia versus pulmonary edema. -inlfuenza sc neg -sp cx p Low grade fever Leukopenia Anemia RA osteoporosis Plan: -Continue empiric IV Vancomycin and Cefepime #3 for PNA pending cultures -Add Tamiflu and Azithromycin empiric for Flu and aytpicals, respectively -f/u cx -Monitor CBC/CMP, temperatures -legionella ag urine -aspiration precautions Thank you for this consultation. Will continue to follow along with you. Discussed with GLORIA. Nayla Lopez M.D. Oct 20, 2018 12:04
--- NOTE | 2018-10-20 13:15 | General Progress Note ---
Assessment/Plan Problem List: (1) Malnutrition ICD Codes: E46 - Unspecified protein-calorie malnutrition SNOMED: 63286933 (2) Fever ICD Codes: R50.9 - Fever, unspecified SNOMED: 193798553 (3) SOB (shortness of breath) ICD Codes: R06.02 - Shortness of breath SNOMED: 668824492 (4) Anemia ICD Codes: D64.9 - Anemia, unspecified SNOMED: 365353942 (5) Neuropathy ICD Codes: G62.9 - Polyneuropathy, unspecified SNOMED: 519520137 (6) Rheumatoid arthritis ICD Codes: M06.9 - Rheumatoid arthritis, unspecified SNOMED: 42133183 (7) Pneumonia ICD Codes: J18.9 - Pneumonia, unspecified organism SNOMED: 497814838 Status: unchanged Assessment/Plan o2 pulm tx abx pt diet cbc bmp am Subjective Constitutional: Reports: weakness Allergies: Coded Allergies: No Known Allergies (Unverified , 10/02/15) All Systems: reviewed and negative except above Subjective o2nc calm sl sob Objective Last 24 Hour Vital Signs Date Time Temp Pulse Resp B/P (MAP) Pulse Ox O2 Delivery O2 Flow Rate FiO2 10/20/18 08:00 98.1 97 18 93/52 (66) 93 10/20/18 07:22 77 16 Room Air 21 10/20/18 04:00 98.0 80 18 101/51 (68) 96 10/20/18 00:00 98.7 84 18 106/65 (79) 95 10/19/18 21:13 84 18 Room Air 21 10/19/18 21:00 Nasal Cannula 2.0 Nasal Cannula 2.0 10/19/18 20:00 99.1 89 18 134/71 (92) 94 10/19/18 17:27 100.4 10/19/18 16:00 100.6 86 18 106/58 (74) 92 10/19/18 14:20 99.3 88 18 113/66 (82) 97 Intake and Output 10/19/18 10/20/18 18:59 06:59 Intake Total 730 ml Balance 730 ml Intake Oral 730 ml # Voids 2 Laboratory Tests 10/19/18 14:30: Urine Random Total Protein 49H, Urine Total Protein [Pending], Urine Albumin (% ) [Pending], Urine Mpums-8-Buunrcyfg (%) [Pending], Urine Jcpib-8-Ooceekyki (%) [Pending], Urine Beta-Globulin (%) [Pending], Urine Gamma Globulin (%) [Pending] , Ur Protein Electrophoresis M-Sharan [Pending], Urine Protein Electrophoresis Intrp [Pending] 10/20/18 06:20: White Blood Count 3.7L, Red Blood Count 3.34L, Hemoglobin 10.2L, Hematocrit 31.0L, Mean Corpuscular Volume 93, Mean Corpuscular Hemoglobin 30.6, Mean Corpuscular Hemoglobin Concent 33.0, Red Cell Distribution Width 13.2, Platelet Count 214, Mean Platelet Volume 6.0L, Neutrophils (%) (Auto) 40.5L, Lymphocytes (%) (Auto) 41.9, Monocytes (%) (Auto) 16.2H, Eosinophils (%) (Auto) 1.0, Basophils (%) (Auto) 0.4, Differential Total Cells Counted 100, Neutrophils % ( Manual) 34L, Lymphocytes % (Manual) 52H, Monocytes % (Manual) 8, Eosinophils % ( Manual) 1, Basophils % (Manual) 0, Band Neutrophils 5, Reactive Lymphocytes Occasional, Platelet Estimate Adequate, Platelet Morphology Normal, Red Blood Cell Morphology Normal, Rouleau , Erythrocyte Sedimentation Rate 117H, Reticulocyte Count [Pending], Prothrombin Time 10.8, Prothromb Time International Ratio 1.0, Activated Partial Thromboplast Time 38H, Sodium Level 138, Potassium Level 3.9, Chloride Level 106, Carbon Dioxide Level 24, Anion Gap 9, Blood Urea Nitrogen 16, Creatinine 1.2, Estimat Glomerular Filtration Rate , Glucose Level 98, Calcium Level 8.9, Iron Level 19L, Total Iron Binding Capacity 192L, Percent Iron Saturation 10L, Unsaturated Iron Binding 173, Lactate Dehydrogenase 244H, Carcinoembryonic Antigen [Pending], Vitamin B12 Level 716, Folate 12.6, Random Vancomycin Level 4.4 10/20/18 06:55: Stool Occult Blood Negative Height (Feet): 5 Height (Inches): 2.00 Weight (Pounds): 93 General Appearance: lethargic EENT: normal ENT inspection Neck: normal alignment Cardiovascular: normal peripheral pulses, normal rate, regular rhythm Respiratory/Chest: chest wall non-tender, decreased breath sounds Abdomen: normal bowel sounds, non tender, soft Extremities: normal inspection Edema: no edema noted Arm (L), no edema noted Arm (R), no edema noted Leg (L), no edema noted Leg (R), no edema noted Pedal (L), no edema noted Pedal (R), no edema noted Generalized Neurologic: motor weakness Skin: normal pigmentation, warm/dry Isaak Herrera DO Oct 20, 2018 13:15
--- NOTE | 2018-10-20 14:27 | Pulmonology Progress Note ---
Assessment/Plan Problems: (1) Acute respiratory failure (2) Pneumonia (3) Severe anemia (4) Rheumatoid arthritis Assessment/Plan respiratory treatment check sputum iv abx chest pt check electrolytes titrate fio2 to sat of 92% Subjective ROS Limited/Unobtainable: No Interval Events: still coughing Constitutional: Reports: no symptoms HEENT: Repors: no symptoms Respiratory: Reports: no symptoms Allergies: Coded Allergies: No Known Allergies (Unverified , 10/02/15) Objective Last 24 Hour Vital Signs Date Time Temp Pulse Resp B/P (MAP) Pulse Ox O2 Delivery O2 Flow Rate FiO2 10/20/18 08:00 98.1 97 18 93/52 (66) 93 10/20/18 07:22 77 16 Room Air 21 10/20/18 04:00 98.0 80 18 101/51 (68) 96 10/20/18 00:00 98.7 84 18 106/65 (79) 95 10/19/18 21:13 84 18 Room Air 21 10/19/18 21:00 Nasal Cannula 2.0 Nasal Cannula 2.0 10/19/18 20:00 99.1 89 18 134/71 (92) 94 10/19/18 17:27 100.4 10/19/18 16:00 100.6 86 18 106/58 (74) 92 Intake and Output 10/19/18 10/20/18 18:59 06:59 Intake Total 730 ml Balance 730 ml Intake Oral 730 ml # Voids 2 General Appearance: cachetic HEENT: normocephalic, atraumatic Respiratory/Chest: chest wall non-tender, lungs clear Breasts: no masses Cardiovascular: normal peripheral pulses, normal rate Abdomen: normal bowel sounds, soft, non tender Genitourinary: normal external genitalia Extremities: no cyanosis 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 normal Lymphatic: no neck adenopathy Microbiology Date/Time Source Procedure Growth Status 10/18/18 14:40 Blood Blood Culture - Preliminary NO GROWTH AFTER 24 HOURS Resulted 10/18/18 14:30 Blood Blood Culture - Preliminary NO GROWTH AFTER 24 HOURS Resulted 10/19/18 14:30 Sputum Gram Stain - Final Resulted 10/19/18 14:30 Sputum Sputum Culture Pending Resulted 10/18/18 15:00 Nasal Nares Influenza Types A,B Antigen (JAIME) - Final Complete Laboratory Tests 10/19/18 14:30: Urine Random Total Protein 49H, Urine Total Protein [Pending], Urine Albumin (% ) [Pending], Urine Vzdhq-5-Sszxmtnnb (%) [Pending], Urine Nzsob-6-Cllgsrrbk (%) [Pending], Urine Beta-Globulin (%) [Pending], Urine Gamma Globulin (%) [Pending] , Ur Protein Electrophoresis M-Sharan [Pending], Urine Protein Electrophoresis Intrp [Pending] 10/20/18 06:20: White Blood Count 3.7L, Red Blood Count 3.34L, Hemoglobin 10.2L, Hematocrit 31.0L, Mean Corpuscular Volume 93, Mean Corpuscular Hemoglobin 30.6, Mean Corpuscular Hemoglobin Concent 33.0, Red Cell Distribution Width 13.2, Platelet Count 214, Mean Platelet Volume 6.0L, Neutrophils (%) (Auto) 40.5L, Lymphocytes (%) (Auto) 41.9, Monocytes (%) (Auto) 16.2H, Eosinophils (%) (Auto) 1.0, Basophils (%) (Auto) 0.4, Differential Total Cells Counted 100, Neutrophils % ( Manual) 34L, Lymphocytes % (Manual) 52H, Monocytes % (Manual) 8, Eosinophils % ( Manual) 1, Basophils % (Manual) 0, Band Neutrophils 5, Reactive Lymphocytes Occasional, Platelet Estimate Adequate, Platelet Morphology Normal, Red Blood Cell Morphology Normal, Rouleau , Erythrocyte Sedimentation Rate 117H, Reticulocyte Count 0.4, Prothrombin Time 10.8, Prothromb Time International Ratio 1.0, Activated Partial Thromboplast Time 38H, Sodium Level 138, Potassium Level 3.9, Chloride Level 106, Carbon Dioxide Level 24, Anion Gap 9, Blood Urea Nitrogen 16, Creatinine 1.2, Estimat Glomerular Filtration Rate , Glucose Level 98, Calcium Level 8.9, Iron Level 19L, Total Iron Binding Capacity 192L, Percent Iron Saturation 10L, Unsaturated Iron Binding 173, Lactate Dehydrogenase 244H, Carcinoembryonic Antigen [Pending], Vitamin B12 Level 716, Folate 12.6, Random Vancomycin Level 4.4 10/20/18 06:55: Stool Occult Blood Negative Current Medications Medications (Trade) Dose Ordered Sig/Floyd Route PRN Reason Start Time Stop Time Status Last Admin Dose Admin Acetaminophen (Tylenol) 650 mg Q4H PRN ORAL T>100.5 10/19/18 14:45 11/17/18 18:44 10/19/18 16:57 Albuterol/ Ipratropium (Albuterol/ Ipratropium) 3 ml Q4H PRN HHN Shortness of Breath 10/19/18 14:45 10/23/18 18:44 Azithromycin (Zithromax) 500 mg DAILY ORAL 10/20/18 13:00 10/27/18 12:59 Cefepime HCl 1 gm/ Dextrose 55 ml @ 110 mls/hr Q24H IVPB 10/20/18 10:00 10/26/18 09:59 10/20/18 10:35 Dextrose (Dextrose 50%) 25 ml Q30M PRN IV Hypoglycemia 10/19/18 14:45 11/17/18 18:44 Dextrose (Dextrose 50%) 50 ml Q30M PRN IV Hypoglycemia 10/19/18 14:45 11/17/18 18:44 Heparin Sodium (Porcine) (Heparin 5000 units/ml) 5,000 units EVERY 12 HOURS SUBQ 10/19/18 21:00 11/17/18 20:59 10/20/18 09:13 Morphine Sulfate (Morphine Sulfate) 2 mg Q4H PRN IVP Severe Pain (Pain Scale 7-10) 10/19/18 14:45 10/25/18 18:44 Ondansetron HCl (Zofran) 4 mg Q6H PRN IVP Nausea & Vomiting 10/19/18 14:30 11/17/18 14:29 Oseltamivir Phosphate (Tamiflu) 30 mg DAILY ORAL 10/20/18 13:00 10/25/18 12:59 Polyethylene Glycol (Miralax) 17 gm DAILYPRN PRN ORAL Constipation 10/19/18 14:30 11/17/18 14:29 Promethazine HCl/ Codeine (Phenergan with Codeine) 5 ml Q4H PRN ORAL For Cough 10/19/18 14:30 11/18/18 14:29 Theophylline (Mt-Dur) 100 mg EVERY 12 HOURS ORAL 10/19/18 21:00 11/18/18 20:59 10/20/18 09:11 Vancomycin HCl (Vanco rx to dose) 1 ea DAILY PRN MISC Per rx protocol 10/19/18 09:00 11/18/18 08:59 Vancomycin HCl 500 mg/Dextrose 110 ml @ 110 mls/hr DAILY IVPB 10/20/18 09:00 10/25/18 08:59 10/20/18 09:11 Stephan Perez MD Oct 20, 2018 14:27
[2018-10-20] MEDS: Azithromycin 250mg tab ORAL SCH (14:30)
--- NOTE | 2018-10-20 15:18 | NUR ---
RD ASSESSMENT & RECOMMENDATIONS SEE CARE ACTIVITY FOR COMPLETE ASSESSMENT DAILY ESTIMATED NEEDS: Needs based on Underweightl/ 42kg 30-35 kcals/kg 8482-7407 total kcals 1-1.2 g protein/kg 42-50 g total protein 25-30 mL/kg 2757-2843 total fluid mLs NUTRITION DIAGNOSIS: (1) Increased kcal/pro needs R/T underweight status as evidenced by pt @ 93% IBW, w/ moderate temporal wasting, low BMI per guidelines. CURRENT DIET:REGULAR, soft easy chew PO DIET RECOMMENDATIONS: REGULAR/ texture as tolerated ADDITIONAL RECOMMENDATIONS: * Calibrated bedscale wt, weekly weights given underweight status * Monitor PO intake closely * Snacks BID
[2018-10-20 16:00] VITALS: BP 114/68
--- NOTE | 2018-10-20 19:00 | NUR ---
NURSE NOTES: Patient resting,no complaints at this time,call light within reach.
--- NOTE | 2018-10-20 19:48 | NUR ---
HAND-OFF: Report given to Siobhan CASTRO.
[2018-10-20 20:00] VITALS: BP 118/67
--- NOTE | 2018-10-20 20:55 | NUR ---
NURSE NOTES: Patient in bed awake, alert, verbally responsive. No s/s of any distress, denies any pain, IV access in place. Bed in low position and locked, call light within reach, will continue to monitor.
[2018-10-21] VITALS (7 sets, daily range): BP systolic 92–121; BP diastolic 57–69
--- NOTE | 2018-10-21 05:57 | NUR ---
NURSE NOTES: PATIENT ASLEEP, NO DISTRESS NOTED.
[2018-10-21 07:04] LABS: BASOPHILS % (AUTO) 0.4 % (0.0-2.0); EOSINOPHILS % (AUTO) 1.4 % (0.0-3.0); HEMATOCRIT 29.7 % (37.0-47.0); HEMOGLOBIN 9.7 G/DL (12.0-16.0); LYMPHOCYTES % (AUTO) 39.3 % (20.0-45.0); MEAN CORPUSCULAR VOLUME 93 FL (80-99); MONOCYTES % (AUTO) 19.2 % (1.0-10.0); NEUTROPHILS % (AUTO) 39.6 % (45.0-75.0); PLATELET COUNT 239 K/UL (150-450); RED BLOOD COUNT 3.18 M/UL (4.20-5.40); RED CELL DISTRIBUTION WIDTH 13.1 % (11.6-14.8); WHITE BLOOD COUNT 3.9 K/UL (4.8-10.8)
[2018-10-21 07:05] LABS: ANION GAP 7 mmol/L (5-15); BLOOD UREA NITROGEN 16 mg/dL (7-18); CALCIUM 8.8 MG/DL (8.5-10.1); CARBON DIOXIDE 26 MMOL/L (21-32); CHLORIDE 105 MMOL/L (98-107); CREATININE 1.2 MG/DL (0.55-1.30); POTASSIUM 3.8 MMOL/L (3.5-5.1); SODIUM 138 MMOL/L (136-145)
--- NOTE | 2018-10-21 07:25 | NUR ---
HAND-OFF: Report given to GRETA GOMEZ RN.
--- NOTE | 2018-10-21 08:28 | NUR ---
NURSE NOTES: Patient is awake and alert,respirations unlabored,patient ate breakfast,no complaints at this time,call light within reach.
[2018-10-21] MEDS: Azithromycin 250mg tab ORAL SCH (09:30)
[2018-10-21] MEDS: Vancomycin 500mg/D5W 110ml IVPB SCH ×2 (09:30)
[2018-10-21] MEDS: Theophylline ER 100mg ORAL SCH ×2 (09:30→22:20)
[2018-10-21] MEDS: Heparin 5000 units/ml inj SUBQ SCH ×2 (09:33→22:21)
[2018-10-21] MEDS: Cefepime HCl 1 GM in D5W 55 ML IVPB SCH (10:36)
--- NOTE | 2018-10-21 11:15 | Infectious Diseases Prog Note ---
Assessment/Plan Assessment/Plan Assessment: Sepsis;improving PNA, probable Flu (despite neg screen test) -CXR: Diffuse bilateral patchy interstitial and alveolar opacities, which may represent pneumonia versus pulmonary edema. -inlfuenza sc neg -sp cx normal fresp aaliyah Low grade fever; improving Leukopenia; improving Anemia RA osteoporosis Plan: -D/c empiric IV Vancomycin #4 -Switch Cefepime #4/7 to Ceftriaxone for PNA given no isolation of resistant organisms -Continue Tamiflu #2/5 and Azithromycin #2/4 empiric for Flu and aytpicals, respectively -3/2 SP Ceftriaxone and azithromycin x1 -f/u cx -Monitor CBC/CMP, temperatures -f/u legionella ag urine -aspiration precautions Thank you for this consultation. Will continue to follow along with you. Discussed with RN. Subjective Allergies: Coded Allergies: No Known Allergies (Unverified , 10/02/15) Subjective afebrile in >36hrs leukopenia improving sp cx normal resp aaliyah at 2l NC Objective Vital Signs Last 24 Hour Vital Signs Date Time Temp Pulse Resp B/P (MAP) Pulse Ox O2 Delivery O2 Flow Rate FiO2 10/21/18 09:16 98.2 95 18 92/57 (69) 95 10/21/18 09:15 98.2 95 18 92/57 (69) 94 10/21/18 09:00 Nasal Cannula 2.0 10/21/18 07:06 86 16 Room Air 21 10/21/18 04:00 98.6 71 18 121/69 (86) 95 10/21/18 00:00 98.5 76 18 108/61 (77) 98 10/20/18 23:46 Nasal Cannula 2.0 10/20/18 20:00 99.7 76 19 118/67 (84) 93 10/20/18 19:35 86 16 Room Air 21 10/20/18 16:00 97.7 75 20 114/68 (83) 94 10/20/18 12:00 98.8 84 20 111/69 (83) 98 Height (Feet): 5 Height (Inches): 2.00 Weight (Pounds): 93 Objective GENERAL: Calm in bed, oriented x3, slight short of breath. CARDIOVASCULAR: No murmur. LUNGS: Poor air exchange. ABDOMEN: Bowel sounds distant. EXTREMITIES: No cyanosis or edema. NEUROLOGIC: The patient moves all extremities, slightly weak. Microbiology Date/Time Source Procedure Growth Status 10/18/18 14:40 Blood Blood Culture - Preliminary NO GROWTH AFTER 48 HOURS Resulted 10/18/18 14:30 Blood Blood Culture - Preliminary NO GROWTH AFTER 48 HOURS Resulted 10/19/18 14:30 Sputum Gram Stain - Final Complete 10/19/18 14:30 Sputum Sputum Culture - Final NORMAL UPPER RESPIRATORY AALIYAH PRESENT Complete 10/18/18 15:00 Nasal Nares Influenza Types A,B Antigen (JAIME) - Final Complete Laboratory Tests Test 10/20/18 23:05 10/21/18 05:40 Urine Legionella Antigen Pending White Blood Count 3.9 K/UL (4.8-10.8) L Red Blood Count 3.18 M/UL (4.20-5.40) L Hemoglobin 9.7 G/DL (12.0-16.0) L Hematocrit 29.7 % (37.0-47.0) L Mean Corpuscular Volume 93 FL (80-99) Mean Corpuscular Hemoglobin 30.4 PG (27.0-31.0) Mean Corpuscular Hemoglobin Concent 32.6 G/DL (32.0-36.0) Red Cell Distribution Width 13.1 % (11.6-14.8) Platelet Count 239 K/UL (150-450) Mean Platelet Volume 6.0 FL (6.5-10.1) L Neutrophils (%) (Auto) 39.6 % (45.0-75.0) L Lymphocytes (%) (Auto) 39.3 % (20.0-45.0) Monocytes (%) (Auto) 19.2 % (1.0-10.0) H Eosinophils (%) (Auto) 1.4 % (0.0-3.0) Basophils (%) (Auto) 0.4 % (0.0-2.0) Sodium Level 138 MMOL/L (136-145) Potassium Level 3.8 MMOL/L (3.5-5.1) Chloride Level 105 MMOL/L (98-107) Carbon Dioxide Level 26 MMOL/L (21-32) Anion Gap 7 mmol/L (5-15) Blood Urea Nitrogen 16 mg/dL (7-18) Creatinine 1.2 MG/DL (0.55-1.30) Estimat Glomerular Filtration Rate mL/min (>60) Glucose Level 86 MG/DL (74-106) Calcium Level 8.8 MG/DL (8.5-10.1) Current Medications Medications (Trade) Dose Ordered Sig/Floyd Route PRN Reason Start Time Stop Time Status Last Admin Dose Admin Acetaminophen (Tylenol) 650 mg Q4H PRN ORAL T>100.5 10/19/18 14:45 11/17/18 18:44 10/19/18 16:57 Albuterol/ Ipratropium (Albuterol/ Ipratropium) 3 ml Q4H PRN HHN Shortness of Breath 10/19/18 14:45 10/23/18 18:44 Azithromycin (Zithromax) 500 mg DAILY ORAL 10/20/18 13:00 10/27/18 12:59 10/21/18 09:30 Cefepime HCl 1 gm/ Dextrose 55 ml @ 110 mls/hr Q24H IVPB 10/20/18 10:00 10/26/18 09:59 10/21/18 10:36 Dextrose (Dextrose 50%) 25 ml Q30M PRN IV Hypoglycemia 10/19/18 14:45 11/17/18 18:44 Dextrose (Dextrose 50%) 50 ml Q30M PRN IV Hypoglycemia 10/19/18 14:45 11/17/18 18:44 Heparin Sodium (Porcine) (Heparin 5000 units/ml) 5,000 units EVERY 12 HOURS SUBQ 10/19/18 21:00 11/17/18 20:59 10/21/18 09:33 Morphine Sulfate (Morphine Sulfate) 2 mg Q4H PRN IVP Severe Pain (Pain Scale 7-10) 10/19/18 14:45 10/25/18 18:44 Ondansetron HCl (Zofran) 4 mg Q6H PRN IVP Nausea & Vomiting 10/19/18 14:30 11/17/18 14:29 Oseltamivir Phosphate (Tamiflu) 30 mg DAILY ORAL 10/20/18 13:00 10/25/18 12:59 10/21/18 09:30 Polyethylene Glycol (Miralax) 17 gm DAILYPRN PRN ORAL Constipation 10/19/18 14:30 11/17/18 14:29 10/20/18 21:21 Promethazine HCl/ Codeine (Phenergan with Codeine) 5 ml Q4H PRN ORAL For Cough 10/19/18 14:30 11/18/18 14:29 Theophylline (Mt-Dur) 100 mg EVERY 12 HOURS ORAL 10/19/18 21:00 11/18/18 20:59 10/21/18 09:30 Vancomycin HCl (Vanco rx to dose) 1 ea DAILY PRN MISC Per rx protocol 10/19/18 09:00 11/18/18 08:59 Vancomycin HCl 500 mg/Dextrose 110 ml @ 110 mls/hr DAILY IVPB 10/20/18 09:00 10/25/18 08:59 10/21/18 09:30 Nayla Lopez M.D. Oct 21, 2018 11:15
[2018-10-21] MEDS ORDERED: Miralax 17gm pkt ORAL PRN (13:30)
[2018-10-21] MEDS ORDERED: Milk of Magnesia 30ml Ud ORAL PRN (13:30)
--- NOTE | 2018-10-21 13:53 | General Progress Note ---
Assessment/Plan Problem List: (1) Malnutrition ICD Codes: E46 - Unspecified protein-calorie malnutrition SNOMED: 80421524 (2) Fever ICD Codes: R50.9 - Fever, unspecified SNOMED: 096261304 (3) SOB (shortness of breath) ICD Codes: R06.02 - Shortness of breath SNOMED: 714913780 (4) Anemia ICD Codes: D64.9 - Anemia, unspecified SNOMED: 219683522 (5) Neuropathy ICD Codes: G62.9 - Polyneuropathy, unspecified SNOMED: 977559089 (6) Rheumatoid arthritis ICD Codes: M06.9 - Rheumatoid arthritis, unspecified SNOMED: 50771336 (7) Pneumonia ICD Codes: J18.9 - Pneumonia, unspecified organism SNOMED: 567600631 Status: unchanged Assessment/Plan o2 pulm tx abx pt diet cbc bmp am dc plan Subjective Constitutional: Reports: weakness Allergies: Coded Allergies: No Known Allergies (Unverified , 10/02/15) All Systems: reviewed and negative except above Subjective calm sl sob Objective Last 24 Hour Vital Signs Date Time Temp Pulse Resp B/P (MAP) Pulse Ox O2 Delivery O2 Flow Rate FiO2 10/21/18 12:00 98.1 86 18 104/58 (73) 96 10/21/18 09:16 98.2 95 18 92/57 (69) 95 10/21/18 09:15 98.2 95 18 92/57 (69) 94 10/21/18 09:00 Nasal Cannula 2.0 10/21/18 07:06 86 16 Room Air 21 10/21/18 04:00 98.6 71 18 121/69 (86) 95 10/21/18 00:00 98.5 76 18 108/61 (77) 98 10/20/18 23:46 Nasal Cannula 2.0 10/20/18 20:00 99.7 76 19 118/67 (84) 93 10/20/18 19:35 86 16 Room Air 21 10/20/18 16:00 97.7 75 20 114/68 (83) 94 Intake and Output 10/20/18 10/21/18 18:59 06:59 Intake Total 540 ml Output Total 300 ml Balance 240 ml Intake Oral 540 ml Output Urine Total 300 ml # Voids 3 2 Laboratory Tests 10/20/18 23:05: Urine Legionella Antigen [Pending] 10/21/18 05:40: White Blood Count 3.9L, Red Blood Count 3.18L, Hemoglobin 9.7L, Hematocrit 29.7L , Mean Corpuscular Volume 93, Mean Corpuscular Hemoglobin 30.4, Mean Corpuscular Hemoglobin Concent 32.6, Red Cell Distribution Width 13.1, Platelet Count 239, Mean Platelet Volume 6.0L, Neutrophils (%) (Auto) 39.6L, Lymphocytes (%) (Auto) 39.3, Monocytes (%) (Auto) 19.2H, Eosinophils (%) (Auto) 1.4, Basophils (%) (Auto) 0.4, Sodium Level 138, Potassium Level 3.8, Chloride Level 105, Carbon Dioxide Level 26, Anion Gap 7, Blood Urea Nitrogen 16, Creatinine 1.2, Estimat Glomerular Filtration Rate , Glucose Level 86, Calcium Level 8.8 Height (Feet): 5 Height (Inches): 2.00 Weight (Pounds): 93 General Appearance: lethargic EENT: normal ENT inspection Neck: normal alignment Cardiovascular: normal peripheral pulses, normal rate, regular rhythm Respiratory/Chest: chest wall non-tender, lungs clear, normal breath sounds Abdomen: normal bowel sounds, non tender, soft Extremities: normal inspection Edema: no edema noted Arm (L), no edema noted Arm (R), no edema noted Leg (L), no edema noted Leg (R), no edema noted Pedal (L), no edema noted Pedal (R), no edema noted Generalized Neurologic: motor weakness Skin: normal pigmentation, warm/dry Isaak Herrera DO Oct 21, 2018 13:53
[2018-10-21] MEDS: cefTRIAXone 1 GM in D5W 55 ML IVPB SCH (14:41)
--- NOTE | 2018-10-21 14:42 | Pulmonology Progress Note ---
Assessment/Plan Problems: (1) Pneumonia (2) Acute respiratory failure (3) Severe anemia (4) Rheumatoid arthritis Assessment/Plan improving slowly respiratory treatment check sputum iv abx chest pt check electrolytes titrate fio2 to sat of 92% Subjective ROS Limited/Unobtainable: No Constitutional: Reports: no symptoms HEENT: Repors: no symptoms Respiratory: Reports: no symptoms Allergies: Coded Allergies: No Known Allergies (Unverified , 10/02/15) Objective Last 24 Hour Vital Signs Date Time Temp Pulse Resp B/P (MAP) Pulse Ox O2 Delivery O2 Flow Rate FiO2 10/21/18 12:00 98.1 86 18 104/58 (73) 96 10/21/18 09:16 98.2 95 18 92/57 (69) 95 10/21/18 09:15 98.2 95 18 92/57 (69) 94 10/21/18 09:00 Nasal Cannula 2.0 10/21/18 07:06 86 16 Room Air 21 10/21/18 04:00 98.6 71 18 121/69 (86) 95 10/21/18 00:00 98.5 76 18 108/61 (77) 98 10/20/18 23:46 Nasal Cannula 2.0 10/20/18 20:00 99.7 76 19 118/67 (84) 93 10/20/18 19:35 86 16 Room Air 21 10/20/18 16:00 97.7 75 20 114/68 (83) 94 Intake and Output 10/20/18 10/21/18 18:59 06:59 Intake Total 540 ml Output Total 300 ml Balance 240 ml Intake Oral 540 ml Output Urine Total 300 ml # Voids 3 2 General Appearance: cachetic HEENT: normocephalic, atraumatic Respiratory/Chest: lungs clear, normal breath sounds Breasts: no masses Cardiovascular: regularly irregular Abdomen: normal bowel sounds, soft, non tender Microbiology Date/Time Source Procedure Growth Status 10/19/18 14:30 Sputum Gram Stain - Final Complete 10/19/18 14:30 Sputum Sputum Culture - Final NORMAL UPPER RESPIRATORY BONNIE PRESENT Complete 10/18/18 15:00 Nasal Nares Influenza Types A,B Antigen (JAIME) - Final Complete Laboratory Tests 10/20/18 23:05: Urine Legionella Antigen [Pending] 10/21/18 05:40: White Blood Count 3.9L, Red Blood Count 3.18L, Hemoglobin 9.7L, Hematocrit 29.7L , Mean Corpuscular Volume 93, Mean Corpuscular Hemoglobin 30.4, Mean Corpuscular Hemoglobin Concent 32.6, Red Cell Distribution Width 13.1, Platelet Count 239, Mean Platelet Volume 6.0L, Neutrophils (%) (Auto) 39.6L, Lymphocytes (%) (Auto) 39.3, Monocytes (%) (Auto) 19.2H, Eosinophils (%) (Auto) 1.4, Basophils (%) (Auto) 0.4, Sodium Level 138, Potassium Level 3.8, Chloride Level 105, Carbon Dioxide Level 26, Anion Gap 7, Blood Urea Nitrogen 16, Creatinine 1.2, Estimat Glomerular Filtration Rate , Glucose Level 86, Calcium Level 8.8 Current Medications Medications (Trade) Dose Ordered Sig/Floyd Route PRN Reason Start Time Stop Time Status Last Admin Dose Admin Acetaminophen (Tylenol) 650 mg Q4H PRN ORAL T>100.5 10/19/18 14:45 11/17/18 18:44 10/19/18 16:57 Albuterol/ Ipratropium (Albuterol/ Ipratropium) 3 ml Q4H PRN HHN Shortness of Breath 10/19/18 14:45 10/23/18 18:44 Azithromycin (Zithromax) 500 mg DAILY ORAL 10/20/18 13:00 10/27/18 12:59 10/21/18 09:30 Ceftriaxone Sodium 1 gm/ Dextrose 55 ml @ 110 mls/hr Q24H IVPB 10/21/18 14:00 10/28/18 13:59 Dextrose (Dextrose 50%) 25 ml Q30M PRN IV Hypoglycemia 10/19/18 14:45 11/17/18 18:44 Dextrose (Dextrose 50%) 50 ml Q30M PRN IV Hypoglycemia 10/19/18 14:45 11/17/18 18:44 Heparin Sodium (Porcine) (Heparin 5000 units/ml) 5,000 units EVERY 12 HOURS SUBQ 10/19/18 21:00 11/17/18 20:59 10/21/18 09:33 Magnesium Hydroxide (Mom) 15 ml Q6H PRN ORAL Constipation 10/21/18 13:30 11/20/18 13:29 Morphine Sulfate (Morphine Sulfate) 2 mg Q4H PRN IVP Severe Pain (Pain Scale 7-10) 10/19/18 14:45 10/25/18 18:44 Ondansetron HCl (Zofran) 4 mg Q6H PRN IVP Nausea & Vomiting 10/19/18 14:30 11/17/18 14:29 Oseltamivir Phosphate (Tamiflu) 30 mg DAILY ORAL 10/20/18 13:00 10/25/18 12:59 10/21/18 09:30 Polyethylene Glycol (Miralax) 17 gm DAILYPRN PRN ORAL Constipation 10/21/18 13:30 11/17/18 14:29 Promethazine HCl/ Codeine (Phenergan with Codeine) 5 ml Q4H PRN ORAL For Cough 10/19/18 14:30 11/18/18 14:29 Theophylline (Mt-Dur) 100 mg EVERY 12 HOURS ORAL 10/19/18 21:00 11/18/18 20:59 10/21/18 09:30 Stephan Perez MD Oct 21, 2018 14:41
--- NOTE | 2018-10-21 19:00 | NUR ---
NURSE NOTES: Received a report from GLORIA Sigala. Pt is in stable condition. AAOX4. Able to make needs known. No respiratory distress. On room air. No c/o pain/discomfort. IV site is patent and intact. Bed in lowest position. Call light within reach. Will continue to monitor.
--- NOTE | 2018-10-21 19:25 | NUR ---
HAND-OFF: Report given to DOMI CASTRO.
[2018-10-22] VITALS: BP 125/80
--- NOTE | 2018-10-22 01:29 | Cardiology Report ---
APPROVED REPORT EKG Measurement Heart [id number] Normal sinus rhythm Normal ECG
[2018-10-22 04:00] VITALS: BP 114/67
[2018-10-22 07:31] LABS: HEMATOCRIT 28.8 % (37.0-47.0); HEMOGLOBIN 9.4 G/DL (12.0-16.0); MEAN CORPUSCULAR VOLUME 93 FL (80-99); PLATELET COUNT 253 K/UL (150-450); RED BLOOD COUNT 3.08 M/UL (4.20-5.40); RED CELL DISTRIBUTION WIDTH 13.1 % (11.6-14.8); WHITE BLOOD COUNT 3.1 K/UL (4.8-10.8)
--- NOTE | 2018-10-22 07:45 | NUR ---
NURSE NOTES: Pt Russian speaker able to verbalize known needs. Call light well in reach , current plan of care will be followed
--- NOTE | 2018-10-22 07:46 | NUR ---
HAND-OFF: Report given to GLORIA Cooper.
[2018-10-22 08:00] VITALS: BP 117/67
[2018-10-22 08:27] LABS: ALANINE AMINOTRANSFERASE 29 U/L (12-78); ALBUMIN 2.4 G/DL (3.4-5.0); ALBUMIN/GLOBULIN RATIO 0.4 (1.0-2.7); ALKALINE PHOSPHATASE 75 U/L (46-116); ANION GAP 6 mmol/L (5-15); ASPARTATE AMINO TRANSFERASE 56 U/L (15-37); BILIRUBIN,TOTAL 0.2 MG/DL (0.2-1.0); BLOOD UREA NITROGEN 18 mg/dL (7-18); CALCIUM 8.9 MG/DL (8.5-10.1); CARBON DIOXIDE 27 MMOL/L (21-32); CHLORIDE 104 MMOL/L (98-107); CREATININE 1.2 MG/DL (0.55-1.30); POTASSIUM 4.3 MMOL/L (3.5-5.1); SODIUM 137 MMOL/L (136-145)
[2018-10-22] MEDS: Theophylline ER 100mg ORAL SCH ×2 (09:07→20:51)
[2018-10-22] MEDS: Azithromycin 250mg tab ORAL SCH (09:07)
[2018-10-22] MEDS: Heparin 5000 units/ml inj SUBQ SCH ×2 (09:11→20:52)
--- NOTE | 2018-10-22 10:50 | NUR ---
RADIOLOGY DEPT CHEST X-RAY DONE.-P.DYE
[2018-10-22 12:00] VITALS: BP 103/63
--- NOTE | 2018-10-22 12:18 | Diagnostic Imaging Report ---
Indication: Shortness of breath Technique: One view of the chest Comparison: 10/18/2018 Findings: Bilateral diffuse interstitial and airspace (predominantly the former) disease persists, unchanged. Pleural spaces remain clear. Heart size is upper limits normal Impression: Bilateral infiltrates versus edema, unchanged over 4 days
--- NOTE | 2018-10-22 12:32 | NUR ---
NURSE NOTES: Pt able to verbalize known needs. Provided with assistance for adls, Only set up required for meal time. Cooperated with medication regimen. Denies n/v possible side effects of antibiotic use. Pt denies pain . Educated on safety measures gait is steady ambulating to restroom .
--- NOTE | 2018-10-22 13:14 | Infectious Diseases Prog Note ---
Assessment/Plan Assessment/Plan Assessment: Sepsis;improving PNA, probable Flu (despite neg screen test) -CXR: Diffuse bilateral patchy interstitial and alveolar opacities, which may represent pneumonia versus pulmonary edema. -inlfuenza sc neg -sp cx normal fresp aalyiah Low grade fever; improving Leukopenia; improving Anemia RA osteoporosis Plan: -Continue Ceftriaxone #2 (abx d#/) for PNA given no isolation of resistant organisms -Continue Tamiflu #3/5 and Azithromycin #3/4 empiric for Flu and aytpicals, respectively -upon discharge can be transition to PO Levaquin and Tamiflu for 2 more days -3/ SP IV Vancomycin #4 , Cefepime #4 -3/2 SP Ceftriaxone and azithromycin x1 -f/u cx -Monitor CBC/CMP, temperatures -f/u legionella ag urine -aspiration precautions Thank you for this consultation. Will continue to follow along with you. Discussed with RN. Subjective Allergies: Coded Allergies: No Known Allergies (Unverified , 10/02/15) Subjective afebrile in >48hrs leukopenia at RA feeling better Objective Vital Signs Last 24 Hour Vital Signs Date Time Temp Pulse Resp B/P (MAP) Pulse Ox O2 Delivery O2 Flow Rate FiO2 10/22/18 09:00 Room Air 10/22/18 08:00 98.2 96 20 117/67 (84) 98 10/22/18 07:45 95 18 Room Air 21 10/22/18 04:00 97.3 72 18 114/67 (83) 96 10/22/18 00:00 97.3 74 17 125/80 (95) 95 10/21/18 21:00 Room Air 10/21/18 20:35 97 18 Room Air 21 10/21/18 20:00 98.0 83 18 112/68 (83) 95 10/21/18 16:41 98.8 18 117/69 (85) Height (Feet): 5 Height (Inches): 2.00 Weight (Pounds): 90 Objective GENERAL: Calm in bed, oriented x3, slight short of breath. CARDIOVASCULAR: No murmur. LUNGS: Poor air exchange. ABDOMEN: Bowel sounds distant. EXTREMITIES: No cyanosis or edema. NEUROLOGIC: The patient moves all extremities, slightly weak. Microbiology Date/Time Source Procedure Growth Status 10/19/18 14:30 Sputum Gram Stain - Final Complete 10/19/18 14:30 Sputum Sputum Culture - Final NORMAL UPPER RESPIRATORY AALIYAH PRESENT Complete Laboratory Tests Test 10/22/18 06:00 White Blood Count 3.1 K/UL (4.8-10.8) L Red Blood Count 3.08 M/UL (4.20-5.40) L Hemoglobin 9.4 G/DL (12.0-16.0) L Hematocrit 28.8 % (37.0-47.0) L Mean Corpuscular Volume 93 FL (80-99) Mean Corpuscular Hemoglobin 30.6 PG (27.0-31.0) Mean Corpuscular Hemoglobin Concent 32.7 G/DL (32.0-36.0) Red Cell Distribution Width 13.1 % (11.6-14.8) Platelet Count 253 K/UL (150-450) Mean Platelet Volume 5.6 FL (6.5-10.1) L Neutrophils (%) (Auto) % (45.0-75.0) Lymphocytes (%) (Auto) % (20.0-45.0) Monocytes (%) (Auto) % (1.0-10.0) Eosinophils (%) (Auto) % (0.0-3.0) Basophils (%) (Auto) % (0.0-2.0) Differential Total Cells Counted 100 Neutrophils % (Manual) 47 % (45-75) Lymphocytes % (Manual) 43 % (20-45) Monocytes % (Manual) 10 % (1-10) Eosinophils % (Manual) 0 % (0-3) Basophils % (Manual) 0 % (0-2) Band Neutrophils 0 % (0-8) Platelet Estimate Adequate Platelet Morphology Normal Red Blood Cell Morphology Normal Sodium Level 137 MMOL/L (136-145) Potassium Level 4.3 MMOL/L (3.5-5.1) Chloride Level 104 MMOL/L (98-107) Carbon Dioxide Level 27 MMOL/L (21-32) Anion Gap 6 mmol/L (5-15) Blood Urea Nitrogen 18 mg/dL (7-18) Creatinine 1.2 MG/DL (0.55-1.30) Estimat Glomerular Filtration Rate mL/min (>60) Glucose Level 86 MG/DL (74-106) Calcium Level 8.9 MG/DL (8.5-10.1) Total Bilirubin 0.2 MG/DL (0.2-1.0) Aspartate Amino Transf (AST/SGOT) 56 U/L (15-37) H Alanine Aminotransferase (ALT/SGPT) 29 U/L (12-78) Alkaline Phosphatase 75 U/L (46-116) Pro-B-Type Natriuretic Peptide 457 pg/mL (0-125) H Total Protein 8.5 G/DL (6.4-8.2) H Albumin 2.4 G/DL (3.4-5.0) L Globulin 6.1 g/dL Albumin/Globulin Ratio 0.4 (1.0-2.7) L Current Medications Medications (Trade) Dose Ordered Sig/Floyd Route PRN Reason Start Time Stop Time Status Last Admin Dose Admin Acetaminophen (Tylenol) 650 mg Q4H PRN ORAL T>100.5 10/19/18 14:45 11/17/18 18:44 10/19/18 16:57 Albuterol/ Ipratropium (Albuterol/ Ipratropium) 3 ml Q4H PRN HHN Shortness of Breath 10/19/18 14:45 10/23/18 18:44 Azithromycin (Zithromax) 500 mg DAILY ORAL 10/20/18 13:00 10/27/18 12:59 10/22/18 09:07 Ceftriaxone Sodium 1 gm/ Dextrose 55 ml @ 110 mls/hr Q24H IVPB 10/21/18 14:00 10/28/18 13:59 10/21/18 14:41 Dextrose (Dextrose 50%) 25 ml Q30M PRN IV Hypoglycemia 10/19/18 14:45 11/17/18 18:44 Dextrose (Dextrose 50%) 50 ml Q30M PRN IV Hypoglycemia 10/19/18 14:45 11/17/18 18:44 Heparin Sodium (Porcine) (Heparin 5000 units/ml) 5,000 units EVERY 12 HOURS SUBQ 10/19/18 21:00 11/17/18 20:59 10/22/18 09:11 Magnesium Hydroxide (Mom) 15 ml Q6H PRN ORAL Constipation 10/21/18 13:30 11/20/18 13:29 10/21/18 14:40 Morphine Sulfate (Morphine Sulfate) 2 mg Q4H PRN IVP Severe Pain (Pain Scale 7-10) 10/19/18 14:45 10/25/18 18:44 Ondansetron HCl (Zofran) 4 mg Q6H PRN IVP Nausea & Vomiting 10/19/18 14:30 11/17/18 14:29 Oseltamivir Phosphate (Tamiflu) 30 mg DAILY ORAL 10/20/18 13:00 10/25/18 12:59 10/22/18 09:09 Polyethylene Glycol (Miralax) 17 gm DAILYPRN PRN ORAL Constipation 10/21/18 13:30 11/17/18 14:29 Promethazine HCl/ Codeine (Phenergan with Codeine) 5 ml Q4H PRN ORAL For Cough 10/19/18 14:30 11/18/18 14:29 Theophylline (Mt-Dur) 100 mg EVERY 12 HOURS ORAL 10/19/18 21:00 11/18/18 20:59 10/22/18 09:07 Nayla Lopez M.D. Oct 22, 2018 13:14
--- NOTE | 2018-10-22 13:58 | Pulmonology Progress Note ---
Assessment/Plan Problems: (1) Pneumonia (2) Acute respiratory failure (3) Severe anemia (4) Rheumatoid arthritis Assessment/Plan improving slowly respiratory treatment check sputum iv abx chest pt check electrolytes titrate fio2 to sat of 92% add short course of solumedrol Subjective ROS Limited/Unobtainable: No Interval Events: less cough Allergies: Coded Allergies: No Known Allergies (Unverified , 10/02/15) Objective Last 24 Hour Vital Signs Date Time Temp Pulse Resp B/P (MAP) Pulse Ox O2 Delivery O2 Flow Rate FiO2 10/22/18 09:00 Room Air 10/22/18 08:00 98.2 96 20 117/67 (84) 98 10/22/18 07:45 95 18 Room Air 21 10/22/18 04:00 97.3 72 18 114/67 (83) 96 10/22/18 00:00 97.3 74 17 125/80 (95) 95 10/21/18 21:00 Room Air 10/21/18 20:35 97 18 Room Air 21 10/21/18 20:00 98.0 83 18 112/68 (83) 95 10/21/18 16:41 98.8 18 117/69 (85) Intake and Output 10/21/18 10/22/18 19:00 07:00 Intake Total 1005 ml 120 ml Balance 1005 ml 120 ml Intake Oral 840 ml 120 ml IV Total 165 ml # Voids 3 3 HEENT: normocephalic, atraumatic Respiratory/Chest: chest wall non-tender, normal breath sounds Cardiovascular: normal peripheral pulses, normal rate Abdomen: soft, non tender Genitourinary: normal external genitalia Extremities: no clubbing Skin: no rash Microbiology Date/Time Source Procedure Growth Status 10/19/18 14:30 Sputum Gram Stain - Final Complete 10/19/18 14:30 Sputum Sputum Culture - Final NORMAL UPPER RESPIRATORY BONNIE PRESENT Complete Laboratory Tests 10/22/18 06:00: White Blood Count 3.1L, Red Blood Count 3.08L, Hemoglobin 9.4L, Hematocrit 28.8L , Mean Corpuscular Volume 93, Mean Corpuscular Hemoglobin 30.6, Mean Corpuscular Hemoglobin Concent 32.7, Red Cell Distribution Width 13.1, Platelet Count 253, Mean Platelet Volume 5.6L, Neutrophils (%) (Auto) , Lymphocytes (%) ( Auto) , Monocytes (%) (Auto) , Eosinophils (%) (Auto) , Basophils (%) (Auto) , Differential Total Cells Counted 100, Neutrophils % (Manual) 47, Lymphocytes % ( Manual) 43, Monocytes % (Manual) 10, Eosinophils % (Manual) 0, Basophils % ( Manual) 0, Band Neutrophils 0, Platelet Estimate Adequate, Platelet Morphology Normal, Red Blood Cell Morphology Normal, Sodium Level 137, Potassium Level 4.3 , Chloride Level 104, Carbon Dioxide Level 27, Anion Gap 6, Blood Urea Nitrogen 18, Creatinine 1.2, Estimat Glomerular Filtration Rate , Glucose Level 86, Calcium Level 8.9, Total Bilirubin 0.2, Aspartate Amino Transf (AST/SGOT) 56H, Alanine Aminotransferase (ALT/SGPT) 29, Alkaline Phosphatase 75, Pro-B-Type Natriuretic Peptide 457H, Total Protein 8.5H, Albumin 2.4L, Globulin 6.1, Albumin/Globulin Ratio 0.4L Current Medications Medications (Trade) Dose Ordered Sig/Floyd Route PRN Reason Start Time Stop Time Status Last Admin Dose Admin Acetaminophen (Tylenol) 650 mg Q4H PRN ORAL T>100.5 10/19/18 14:45 11/17/18 18:44 10/19/18 16:57 Albuterol/ Ipratropium (Albuterol/ Ipratropium) 3 ml Q4H PRN HHN Shortness of Breath 10/19/18 14:45 10/23/18 18:44 Azithromycin (Zithromax) 500 mg DAILY ORAL 10/20/18 13:00 10/27/18 12:59 10/22/18 09:07 Ceftriaxone Sodium 1 gm/ Dextrose 55 ml @ 110 mls/hr Q24H IVPB 10/21/18 14:00 10/28/18 13:59 10/21/18 14:41 Dextrose (Dextrose 50%) 25 ml Q30M PRN IV Hypoglycemia 10/19/18 14:45 11/17/18 18:44 Dextrose (Dextrose 50%) 50 ml Q30M PRN IV Hypoglycemia 10/19/18 14:45 11/17/18 18:44 Heparin Sodium (Porcine) (Heparin 5000 units/ml) 5,000 units EVERY 12 HOURS SUBQ 10/19/18 21:00 11/17/18 20:59 10/22/18 09:11 Magnesium Hydroxide (Mom) 15 ml Q6H PRN ORAL Constipation 10/21/18 13:30 11/20/18 13:29 10/21/18 14:40 Morphine Sulfate (Morphine Sulfate) 2 mg Q4H PRN IVP Severe Pain (Pain Scale 7-10) 10/19/18 14:45 10/25/18 18:44 Ondansetron HCl (Zofran) 4 mg Q6H PRN IVP Nausea & Vomiting 10/19/18 14:30 11/17/18 14:29 Oseltamivir Phosphate (Tamiflu) 30 mg DAILY ORAL 10/20/18 13:00 10/25/18 12:59 10/22/18 09:09 Polyethylene Glycol (Miralax) 17 gm DAILYPRN PRN ORAL Constipation 10/21/18 13:30 11/17/18 14:29 Promethazine HCl/ Codeine (Phenergan with Codeine) 5 ml Q4H PRN ORAL For Cough 10/19/18 14:30 11/18/18 14:29 Theophylline (Mt-Dur) 100 mg EVERY 12 HOURS ORAL 10/19/18 21:00 11/18/18 20:59 10/22/18 09:07 Stephan Perez MD Oct 22, 2018 13:58
[2018-10-22] MEDS: cefTRIAXone 1 GM in D5W 55 ML IVPB SCH (14:03)
--- NOTE | 2018-10-22 14:44 | NUR ---
*-* DISCHARGE PLANNED *-* PATIENT HAS BEEN REFERRED TO: [email or web address] [phone] Work [phone] Work Work Fax Addendum: 10/22/18 at 1511 by MORENA DICKSON CM SPOKE TO [facility] AND THEY HAVE AGREED TO FOLLOW PATIENT.
--- NOTE | 2018-10-22 15:13 | General Progress Note ---
Assessment/Plan Problem List: (1) Malnutrition ICD Codes: E46 - Unspecified protein-calorie malnutrition SNOMED: 53033594 (2) Fever ICD Codes: R50.9 - Fever, unspecified SNOMED: 121396688 (3) SOB (shortness of breath) ICD Codes: R06.02 - Shortness of breath SNOMED: 870661543 (4) Anemia ICD Codes: D64.9 - Anemia, unspecified SNOMED: 890771108 (5) Neuropathy ICD Codes: G62.9 - Polyneuropathy, unspecified SNOMED: 385606352 (6) Rheumatoid arthritis ICD Codes: M06.9 - Rheumatoid arthritis, unspecified SNOMED: 62493111 (7) Pneumonia ICD Codes: J18.9 - Pneumonia, unspecified organism SNOMED: 597437159 Status: unchanged Assessment/Plan o2 pulm tx abx pt diet cbc bmp am heme eval dc plan Subjective Constitutional: Reports: weakness Allergies: Coded Allergies: No Known Allergies (Unverified , 10/02/15) All Systems: reviewed and negative except above Subjective calm sl sob Objective Last 24 Hour Vital Signs Date Time Temp Pulse Resp B/P (MAP) Pulse Ox O2 Delivery O2 Flow Rate FiO2 10/22/18 09:00 Room Air 10/22/18 08:00 98.2 96 20 117/67 (84) 98 10/22/18 07:45 95 18 Room Air 21 10/22/18 04:00 97.3 72 18 114/67 (83) 96 10/22/18 00:00 97.3 74 17 125/80 (95) 95 10/21/18 21:00 Room Air 10/21/18 20:35 97 18 Room Air 21 10/21/18 20:00 98.0 83 18 112/68 (83) 95 10/21/18 16:41 98.8 18 117/69 (85) Intake and Output 10/21/18 10/22/18 18:59 06:59 Intake Total 1005 ml 120 ml Balance 1005 ml 120 ml Intake Oral 840 ml 120 ml IV Total 165 ml # Voids 3 3 Laboratory Tests 10/22/18 06:00: White Blood Count 3.1L, Red Blood Count 3.08L, Hemoglobin 9.4L, Hematocrit 28.8L , Mean Corpuscular Volume 93, Mean Corpuscular Hemoglobin 30.6, Mean Corpuscular Hemoglobin Concent 32.7, Red Cell Distribution Width 13.1, Platelet Count 253, Mean Platelet Volume 5.6L, Neutrophils (%) (Auto) , Lymphocytes (%) ( Auto) , Monocytes (%) (Auto) , Eosinophils (%) (Auto) , Basophils (%) (Auto) , Differential Total Cells Counted 100, Neutrophils % (Manual) 47, Lymphocytes % ( Manual) 43, Monocytes % (Manual) 10, Eosinophils % (Manual) 0, Basophils % ( Manual) 0, Band Neutrophils 0, Platelet Estimate Adequate, Platelet Morphology Normal, Red Blood Cell Morphology Normal, Sodium Level 137, Potassium Level 4.3 , Chloride Level 104, Carbon Dioxide Level 27, Anion Gap 6, Blood Urea Nitrogen 18, Creatinine 1.2, Estimat Glomerular Filtration Rate , Glucose Level 86, Calcium Level 8.9, Total Bilirubin 0.2, Aspartate Amino Transf (AST/SGOT) 56H, Alanine Aminotransferase (ALT/SGPT) 29, Alkaline Phosphatase 75, Pro-B-Type Natriuretic Peptide 457H, Total Protein 8.5H, Albumin 2.4L, Globulin 6.1, Albumin/Globulin Ratio 0.4L Height (Feet): 5 Height (Inches): 2.00 Weight (Pounds): 90 General Appearance: lethargic EENT: normal ENT inspection Neck: normal alignment Cardiovascular: normal peripheral pulses, normal rate, regular rhythm Respiratory/Chest: chest wall non-tender, lungs clear, normal breath sounds Abdomen: normal bowel sounds, non tender, soft Extremities: normal inspection Edema: no edema noted Arm (L), no edema noted Arm (R), no edema noted Leg (L), no edema noted Leg (R), no edema noted Pedal (L), no edema noted Pedal (R), no edema noted Generalized Neurologic: motor weakness Skin: normal pigmentation, warm/dry Isaak Herrera DO Oct 22, 2018 15:13
[2018-10-22 16:00] VITALS: BP 112/75
--- NOTE | 2018-10-22 16:26 | NUR ---
NURSE NOTES: Pt currently sleeping, provided with iv antibiotics informed of possible side effects to report to advertising writer. Pt hydrates self . Current plan of care will be followed . Call light is in reach
[2018-10-22] MEDS: Solu-MEDROL 125mg Inj IV SCH (18:06)
--- NOTE | 2018-10-22 18:52 | NUR ---
CASE MANAGEMENT: REVIEW SI: PNA T 98.3 HR 85 RR 16 BP 112/75 SAT 94% ROOM AIR WBC 3.1 H/H 9.4/28.8 BNP 457 IS: SOLU MEDROL IV Q6HR CEFTRIAXONE IV Q24HR TAMIFLU PO QD THEOPHYLLINE PO Q12HR MED/SURG STATUS DCP: PATIENT IS FROM HOME
--- NOTE | 2018-10-22 19:51 | NUR ---
HAND-OFF: Report given to Fernanda CASTRO.
[2018-10-22 20:00] VITALS: BP 107/67
--- NOTE | 2018-10-22 20:08 | NUR ---
NURSE NOTES: Received patient awake in bed, no s/s of acute distress. Family at the bedside. IV site asymptomatic, on saline lock. Bed on lowest position, 2 side rails up, call light and belongings within reach.
[2018-10-23] VITALS (7 sets, daily range): BP systolic 106–119; BP diastolic 62–76
[2018-10-23] MEDS: Solu-MEDROL 125mg Inj IV SCH ×6 (00:27→23:28)
--- NOTE | 2018-10-23 01:16 | Consultation ---
DATE OF CONSULTATION: 10/21/2018 NOTE: POOR AUDIO. PSYCHOTHERAPY CONSULTATION PROGRESS NOTE HISTORY OF PRESENT ILLNESS: The patient is a 73-year-old female patient. She was brought into the hospital. At that time, she was living at home, complaining of fever and shortness of breath for two days, and this has been worsening. For these reasons, she was brought into the hospital. She had been slightly anxious and was referred to psychotherapeutic services. This clinician assessed this patient. The patient is awake and alert. The patient states that she is medical condition and stated that she does not like to get sick. However, at this time, she denies any significant distress and has no suicidal or homicidal thoughts of ideation. Denies any auditory or visual hallucinations. She states that she has intermittent anxiety; however, this is not overwhelmingly significant. Assessed this patient. The patient remains anxious because of her medical condition during the hospital setting; however, at this time, she states that she is not experiencing any significant stress. She is alert and oriented to person, place, and time. Her mood is anxious. Her affect is congruent. Thought process is slightly disorganized. She has fair attention and concentration, fair insight, judgment, and impulse control. This clinician assessed this patient. PAST MEDICAL HISTORY: Includes a history of rheumatoid arthritis. ALLERGIES: The patient has no known drug allergies. SUBSTANCE ABUSE HISTORY: The patient denies history of alcohol use or illicit substance use. PSYCHIATRIC HISTORY: The patient denies a history of mental illness. SOCIAL HISTORY: Apparently, the patient is a 73-year-old female patient. The patient lives independently at home. Financially sustained through [employer]. MENTAL STATUS EXAMINATION: The patient is alert and oriented to person, place, and time. Mood is anxious. Affect is blunted. Thought process, slightly disorganized. She has fair attention and concentration. Fair insight, judgment, and impulse control. DIAGNOSIS: Rule out generalized anxiety disorder. PLAN: 1. This clinician assessed this patient the patient's son reality orientation individual place, time, and situation. 2. Provide her supportive psychotherapy, identifying thoughts thoughts and feelings of anxiety and depression. 3. Cognitive behavioral therapy anxiety and helplessness, redirecting and discussing positive coping skills including positive positive interactions with others and positive symptoms. Plan is to maintain medication compliance positive coping skills for this patient. This clinician has reviewed the patient's chart. Discussed treatment with treatment team. Quin Coppola PsyD. DR: RACHEAL JOB#: [id number] CC:
--- NOTE | 2018-10-23 07:23 | NUR ---
HAND-OFF: Report given to GLORIA Cooper.
[2018-10-23 07:50] LABS: HEMOGLOBIN 10.4 G/DL (12.0-16.0); MEAN CORPUSCULAR VOLUME 94 FL (80-99); PLATELET COUNT 324 K/UL (150-450); RED BLOOD COUNT 3.41 M/UL (4.20-5.40); WHITE BLOOD COUNT 2.5 K/UL (4.8-10.8)
--- NOTE | 2018-10-23 07:50 | NUR ---
NURSE NOTES: received awake eating able to verbalize known needs. French speaker. Call light is in reach. Denies pain at this time. No signs of distress . Current plan of care will be followed
[2018-10-23 08:00] LABS: ANION GAP 7 mmol/L (5-15); BLOOD UREA NITROGEN 22 mg/dL (7-18); CARBON DIOXIDE 25 MMOL/L (21-32); CHLORIDE 101 MMOL/L (98-107); CREATININE 1.2 MG/DL (0.55-1.30); SODIUM 133 MMOL/L (136-145)
[2018-10-23] MEDS: Theophylline ER 100mg ORAL SCH ×2 (09:38→20:56)
[2018-10-23] MEDS: Azithromycin 250mg tab ORAL SCH (09:39)
[2018-10-23] MEDS: Heparin 5000 units/ml inj SUBQ SCH ×2 (09:44→20:59)
--- NOTE | 2018-10-23 13:40 | Infectious Diseases Prog Note ---
Assessment/Plan Assessment/Plan Assessment: Sepsis;improving PNA, probable Flu (despite neg screen test) -CXR: Diffuse bilateral patchy interstitial and alveolar opacities, which may represent pneumonia versus pulmonary edema. -inlfuenza sc neg -sp cx normal fresp aaliyah Low grade fever; SP Leukopenia; improving Anemia RA osteoporosis Plan: -Continue Ceftriaxone #3 (abx d#6/7) for PNA given no isolation of resistant organisms -Continue Tamiflu #4/5 and Azithromycin #4/4 empiric for Flu and aytpicals, respectively -upon discharge can be transition to PO Levaquin and Tamiflu for 1 more days -3/5 SP IV Vancomycin #4 , Cefepime #4 -3/2 SP Ceftriaxone and azithromycin x1 -f/u cx -Monitor CBC/CMP, temperatures -f/u legionella ag urine -aspiration precautions Thank you for this consultation. Will continue to follow along with you. Discussed with RN. Subjective Allergies: Coded Allergies: No Known Allergies (Unverified , 10/02/15) Subjective afebrile in >72hrs leukopenia at RA feeling better Objective Vital Signs Last 24 Hour Vital Signs Date Time Temp Pulse Resp B/P (MAP) Pulse Ox O2 Delivery O2 Flow Rate FiO2 10/23/18 07:25 71 19 Room Air 21 10/23/18 04:00 97.0 62 16 106/62 (77) 97 10/23/18 00:00 97.9 69 18 119/70 (86) 98 10/22/18 21:00 Room Air 10/22/18 20:28 88 18 Room Air 21 10/22/18 20:00 97.8 79 17 107/67 (80) 98 10/22/18 16:00 98.3 85 16 112/75 (87) 97 Height (Feet): 5 Height (Inches): 2.00 Weight (Pounds): 90 Objective GENERAL: Calm in bed, oriented x3, slight short of breath. CARDIOVASCULAR: No murmur. LUNGS: Poor air exchange. ABDOMEN: Bowel sounds distant. EXTREMITIES: No cyanosis or edema. NEUROLOGIC: The patient moves all extremities, slightly weak. Laboratory Tests Test 10/23/18 06:39 White Blood Count 2.5 K/UL (4.8-10.8) L Red Blood Count 3.41 M/UL (4.20-5.40) L Hemoglobin 10.4 G/DL (12.0-16.0) L Hematocrit 32.0 % (37.0-47.0) L Mean Corpuscular Volume 94 FL (80-99) Mean Corpuscular Hemoglobin 30.5 PG (27.0-31.0) Mean Corpuscular Hemoglobin Concent 32.5 G/DL (32.0-36.0) Red Cell Distribution Width 13.0 % (11.6-14.8) Platelet Count 324 K/UL (150-450) Mean Platelet Volume 5.3 FL (6.5-10.1) L Neutrophils (%) (Auto) % (45.0-75.0) Lymphocytes (%) (Auto) % (20.0-45.0) Monocytes (%) (Auto) % (1.0-10.0) Eosinophils (%) (Auto) % (0.0-3.0) Basophils (%) (Auto) % (0.0-2.0) Differential Total Cells Counted 100 Neutrophils % (Manual) 73 % (45-75) Lymphocytes % (Manual) 26 % (20-45) Monocytes % (Manual) 1 % (1-10) Eosinophils % (Manual) 0 % (0-3) Basophils % (Manual) 0 % (0-2) Band Neutrophils 0 % (0-8) Platelet Estimate Adequate Platelet Morphology Normal Red Blood Cell Morphology Normal Sodium Level 133 MMOL/L (136-145) L Potassium Level 4.0 MMOL/L (3.5-5.1) Chloride Level 101 MMOL/L (98-107) Carbon Dioxide Level 25 MMOL/L (21-32) Anion Gap 7 mmol/L (5-15) Blood Urea Nitrogen 22 mg/dL (7-18) H Creatinine 1.2 MG/DL (0.55-1.30) Estimat Glomerular Filtration Rate mL/min (>60) Glucose Level 143 MG/DL (74-106) H Calcium Level 9.0 MG/DL (8.5-10.1) Current Medications Medications (Trade) Dose Ordered Sig/Floyd Route PRN Reason Start Time Stop Time Status Last Admin Dose Admin Acetaminophen (Tylenol) 650 mg Q4H PRN ORAL T>100.5 10/19/18 14:45 11/17/18 18:44 10/19/18 16:57 Albuterol/ Ipratropium (Albuterol/ Ipratropium) 3 ml Q4H PRN HHN Shortness of Breath 10/19/18 14:45 10/23/18 18:44 Azithromycin (Zithromax) 500 mg DAILY ORAL 10/20/18 13:00 10/27/18 12:59 10/23/18 09:39 Ceftriaxone Sodium 1 gm/ Dextrose 55 ml @ 110 mls/hr Q24H IVPB 10/21/18 14:00 10/28/18 13:59 10/22/18 14:03 Dextrose (Dextrose 50%) 25 ml Q30M PRN IV Hypoglycemia 10/19/18 14:45 11/17/18 18:44 Dextrose (Dextrose 50%) 50 ml Q30M PRN IV Hypoglycemia 10/19/18 14:45 11/17/18 18:44 Heparin Sodium (Porcine) (Heparin 5000 units/ml) 5,000 units EVERY 12 HOURS SUBQ 10/19/18 21:00 11/17/18 20:59 10/23/18 09:44 Magnesium Hydroxide (Mom) 15 ml Q6H PRN ORAL Constipation 10/21/18 13:30 11/20/18 13:29 10/21/18 14:40 Methylprednisolone Sodium Succinate (Solu-MEDROL) 60 mg EVERY 6 HOURS IV 10/22/18 18:00 11/21/18 17:59 10/23/18 13:29 Morphine Sulfate (Morphine Sulfate) 2 mg Q4H PRN IVP Severe Pain (Pain Scale 7-10) 10/19/18 14:45 10/25/18 18:44 Ondansetron HCl (Zofran) 4 mg Q6H PRN IVP Nausea & Vomiting 10/19/18 14:30 11/17/18 14:29 Oseltamivir Phosphate (Tamiflu) 30 mg DAILY ORAL 10/20/18 13:00 10/25/18 12:59 10/23/18 09:42 Polyethylene Glycol (Miralax) 17 gm DAILYPRN PRN ORAL Constipation 10/21/18 13:30 11/17/18 14:29 Promethazine HCl/ Codeine (Phenergan with Codeine) 5 ml Q4H PRN ORAL For Cough 10/19/18 14:30 4/2/19 14:29 Theophylline (Mt-Dur) 100 mg EVERY 12 HOURS ORAL 10/19/18 21:00 11/18/18 20:59 10/23/18 09:38 Nayla Lopez M.D. Oct 23, 2018 13:40
--- NOTE | 2018-10-23 13:43 | General Progress Note ---
Assessment/Plan Problem List: (1) Malnutrition ICD Codes: E46 - Unspecified protein-calorie malnutrition SNOMED: 77164387 (2) Fever ICD Codes: R50.9 - Fever, unspecified SNOMED: 051858216 (3) SOB (shortness of breath) ICD Codes: R06.02 - Shortness of breath SNOMED: 357119893 (4) Anemia ICD Codes: D64.9 - Anemia, unspecified SNOMED: 893430402 (5) Neuropathy ICD Codes: G62.9 - Polyneuropathy, unspecified SNOMED: 434103372 (6) Rheumatoid arthritis ICD Codes: M06.9 - Rheumatoid arthritis, unspecified SNOMED: 25794532 (7) Pneumonia ICD Codes: J18.9 - Pneumonia, unspecified organism SNOMED: 842833526 Status: stable, progressing Assessment/Plan o2 pulm tx abx pt diet cbc bmp am heme eval dc plan Subjective Constitutional: Reports: weakness Allergies: Coded Allergies: No Known Allergies (Unverified , 10/02/15) All Systems: reviewed and negative except above Subjective calm sl sob Objective Last 24 Hour Vital Signs Date Time Temp Pulse Resp B/P (MAP) Pulse Ox O2 Delivery O2 Flow Rate FiO2 10/23/18 07:25 71 19 Room Air 21 10/23/18 04:00 97.0 62 16 106/62 (77) 97 10/23/18 00:00 97.9 69 18 119/70 (86) 98 10/22/18 21:00 Room Air 10/22/18 20:28 88 18 Room Air 21 10/22/18 20:00 97.8 79 17 107/67 (80) 98 10/22/18 16:00 98.3 85 16 112/75 (87) 97 Intake and Output 10/22/18 10/23/18 19:00 07:00 Intake Total 55 ml 250 ml Balance 55 ml 250 ml Intake Oral 250 ml IV Total 55 ml # Voids 2 Laboratory Tests 10/23/18 06:39: White Blood Count 2.5L, Red Blood Count 3.41L, Hemoglobin 10.4L, Hematocrit 32.0L, Mean Corpuscular Volume 94, Mean Corpuscular Hemoglobin 30.5, Mean Corpuscular Hemoglobin Concent 32.5, Red Cell Distribution Width 13.0, Platelet Count 324, Mean Platelet Volume 5.3L, Neutrophils (%) (Auto) , Lymphocytes (%) ( Auto) , Monocytes (%) (Auto) , Eosinophils (%) (Auto) , Basophils (%) (Auto) , Differential Total Cells Counted 100, Neutrophils % (Manual) 73, Lymphocytes % ( Manual) 26, Monocytes % (Manual) 1, Eosinophils % (Manual) 0, Basophils % ( Manual) 0, Band Neutrophils 0, Platelet Estimate Adequate, Platelet Morphology Normal, Red Blood Cell Morphology Normal, Sodium Level 133L, Potassium Level 4.0 , Chloride Level 101, Carbon Dioxide Level 25, Anion Gap 7, Blood Urea Nitrogen 22H, Creatinine 1.2, Estimat Glomerular Filtration Rate , Glucose Level 143H, Calcium Level 9.0 Height (Feet): 5 Height (Inches): 2.00 Weight (Pounds): 90 General Appearance: lethargic EENT: normal ENT inspection Neck: normal alignment Cardiovascular: normal peripheral pulses, normal rate, regular rhythm Respiratory/Chest: chest wall non-tender, lungs clear, normal breath sounds Abdomen: normal bowel sounds, non tender, soft Extremities: normal inspection Edema: no edema noted Arm (L), no edema noted Arm (R), no edema noted Leg (L), no edema noted Leg (R), no edema noted Pedal (L), no edema noted Pedal (R), no edema noted Generalized Neurologic: motor weakness Skin: normal pigmentation, warm/dry Isaak Herrera DO Oct 23, 2018 13:43
--- NOTE | 2018-10-23 14:16 | Diagnostic Imaging Report ---
APPROVED REPORT CPT Code: 69091 Present Symptoms Shortness of breath BILATERAL: Imaging reveals a patent deep venous system bilaterally. There is no evidence of thrombus within the common femoral, superficial femoral, popliteal or tibial segments. The greater saphenous veins are within normal limits. Doppler indicates normal spontaneous flow within these segments.
--- NOTE | 2018-10-23 15:18 | Pulmonology Progress Note ---
Assessment/Plan Problems: (1) Pneumonia (2) Acute respiratory failure (3) Severe anemia (4) Rheumatoid arthritis Assessment/Plan improving slowly respiratory treatment check sputum iv abx chest pt check electrolytes titrate fio2 to sat of 92% add short course of Solumedrol, continue the same hypergammaglobulinemia, urine protein electrophoresis pending Subjective ROS Limited/Unobtainable: No Interval Events: less short of breath Constitutional: Reports: no symptoms HEENT: Repors: no symptoms Respiratory: Reports: no symptoms Allergies: Coded Allergies: No Known Allergies (Unverified , 10/02/15) Objective Last 24 Hour Vital Signs Date Time Temp Pulse Resp B/P (MAP) Pulse Ox O2 Delivery O2 Flow Rate FiO2 10/23/18 07:25 71 19 Room Air 21 10/23/18 04:00 97.0 62 16 106/62 (77) 97 10/23/18 00:00 97.9 69 18 119/70 (86) 98 10/22/18 21:00 Room Air 10/22/18 20:28 88 18 Room Air 21 10/22/18 20:00 97.8 79 17 107/67 (80) 98 10/22/18 16:00 98.3 85 16 112/75 (87) 97 Intake and Output 10/22/18 10/23/18 19:00 07:00 Intake Total 55 ml 250 ml Balance 55 ml 250 ml Intake Oral 250 ml IV Total 55 ml # Voids 2 General Appearance: WD/WN HEENT: normocephalic, atraumatic Respiratory/Chest: chest wall non-tender, lungs clear, normal breath sounds Breasts: no masses Cardiovascular: normal peripheral pulses Abdomen: normal bowel sounds, soft, non tender Genitourinary: normal external genitalia Skin: no rash, no lesions 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 Laboratory Tests 10/23/18 06:39: White Blood Count 2.5L, Red Blood Count 3.41L, Hemoglobin 10.4L, Hematocrit 32.0L, Mean Corpuscular Volume 94, Mean Corpuscular Hemoglobin 30.5, Mean Corpuscular Hemoglobin Concent 32.5, Red Cell Distribution Width 13.0, Platelet Count 324, Mean Platelet Volume 5.3L, Neutrophils (%) (Auto) , Lymphocytes (%) ( Auto) , Monocytes (%) (Auto) , Eosinophils (%) (Auto) , Basophils (%) (Auto) , Differential Total Cells Counted 100, Neutrophils % (Manual) 73, Lymphocytes % ( Manual) 26, Monocytes % (Manual) 1, Eosinophils % (Manual) 0, Basophils % ( Manual) 0, Band Neutrophils 0, Platelet Estimate Adequate, Platelet Morphology Normal, Red Blood Cell Morphology Normal, Sodium Level 133L, Potassium Level 4.0 , Chloride Level 101, Carbon Dioxide Level 25, Anion Gap 7, Blood Urea Nitrogen 22H, Creatinine 1.2, Estimat Glomerular Filtration Rate , Glucose Level 143H, Calcium Level 9.0 Current Medications Medications (Trade) Dose Ordered Sig/Floyd Route PRN Reason Start Time Stop Time Status Last Admin Dose Admin Acetaminophen (Tylenol) 650 mg Q4H PRN ORAL T>100.5 10/19/18 14:45 11/17/18 18:44 10/19/18 16:57 Albuterol/ Ipratropium (Albuterol/ Ipratropium) 3 ml Q4H PRN HHN Shortness of Breath 10/19/18 14:45 10/23/18 18:44 Ceftriaxone Sodium 1 gm/ Dextrose 55 ml @ 110 mls/hr Q24H IVPB 10/21/18 14:00 10/28/18 13:59 10/22/18 14:03 Dextrose (Dextrose 50%) 25 ml Q30M PRN IV Hypoglycemia 10/19/18 14:45 11/17/18 18:44 Dextrose (Dextrose 50%) 50 ml Q30M PRN IV Hypoglycemia 10/19/18 14:45 11/17/18 18:44 Heparin Sodium (Porcine) (Heparin 5000 units/ml) 5,000 units EVERY 12 HOURS SUBQ 10/19/18 21:00 11/17/18 20:59 10/23/18 09:44 Magnesium Hydroxide (Mom) 15 ml Q6H PRN ORAL Constipation 10/21/18 13:30 11/20/18 13:29 10/21/18 14:40 Methylprednisolone Sodium Succinate (Solu-MEDROL) 60 mg EVERY 6 HOURS IV 10/22/18 18:00 11/21/18 17:59 10/23/18 13:29 Morphine Sulfate (Morphine Sulfate) 2 mg Q4H PRN IVP Severe Pain (Pain Scale 7-10) 10/19/18 14:45 10/25/18 18:44 Ondansetron HCl (Zofran) 4 mg Q6H PRN IVP Nausea & Vomiting 10/19/18 14:30 11/17/18 14:29 Oseltamivir Phosphate (Tamiflu) 30 mg DAILY ORAL 10/20/18 13:00 10/25/18 12:59 10/23/18 09:42 Polyethylene Glycol (Miralax) 17 gm DAILYPRN PRN ORAL Constipation 10/21/18 13:30 11/17/18 14:29 Promethazine HCl/ Codeine (Phenergan with Codeine) 5 ml Q4H PRN ORAL For Cough 10/19/18 14:30 11/18/18 14:29 Theophylline (Mt-Dur) 100 mg EVERY 12 HOURS ORAL 10/19/18 21:00 11/18/18 20:59 10/23/18 09:38 Stephan Perez MD Oct 23, 2018 15:18
[2018-10-23] MEDS: cefTRIAXone 1 GM in D5W 55 ML IVPB SCH (16:42)
--- NOTE | 2018-10-23 19:15 | NUR ---
NURSE NOTES:Patient A/A/OX4 family at bedside . patient denies any pain . no s/s of distress noted .patient Ambulated to bathroom with slowly with steady gait and voided freely to yellow urine without difficulties . and back to bed . patient instructed to call staff or use call light when needed Patient verbalized with understanding.bed in low position bed alarm on. will continue to monitor. Addendum: 10/24/18 at 0112 by ODESSA SINCLAIR LVN right forearm g#22 H/L Patent and intact .will continue to monitor.
--- NOTE | 2018-10-23 19:31 | NUR ---
NURSE NOTES: Pt mild manner cooperated with all plan of care. Ambulates freely , gait is slow and steady. Provided with IV antibiotics no signs of possible side effects related to antibiotic use. Current plan of care will be followed
--- NOTE | 2018-10-23 20:05 | NUR ---
HAND-OFF: Report given to Mary Anne Donato.
--- NOTE | 2018-10-23 20:15 | NUR ---
NURSE NOTES: Patient in bed awake and alert x4. Respiration even and unlabored. VS taken and stable. Bed in lowest position for safety. Call light within reach.
--- NOTE | 2018-10-23 21:29 | Consultation ---
History of Present Illness General Chief Complaint: Dyspnea/Respdistress Present Illness Allergies: Coded Allergies: No Known Allergies (Unverified , 10/02/15) Medication History Scheduled Alendronate Sodium* (Fosamax*), Unknown Dose ORAL DAILY, (Reported) Aspirin* (Aspir 81*), 81 MG ORAL DAILY, (Reported) Miscellaneous Medications Calcium Carbonate (Calcium), 500 MG PO, (Reported) Ibuprofen* (Advil*), Unknown Dose ORAL, (Reported) Discontinued Medications Alendronate Sodium* (Fosamax*), 10 MG ORAL DAILY, (Reported) Discontinued Reason: Pt stopped taking med Prednisone* (Prednisone*), 20 MG ORAL DAILY, (Reported) Discontinued Reason: Pt stopped taking med Patient History Healthcare decision maker Resuscitation status Full Code Advanced Directive on File No Physical Exam Last 24 Hour Vital Signs Date Time Temp Pulse Resp B/P (MAP) Pulse Ox O2 Delivery O2 Flow Rate FiO2 10/23/18 20:00 98.0 69 17 112/64 (80) 96 10/23/18 16:00 98.2 68 16 115/67 (83) 10/23/18 12:00 98.2 66 16 111/76 (88) 66 10/23/18 09:00 Room Air 10/23/18 08:00 98.1 68 16 114/68 (83) 98 10/23/18 07:25 71 19 Room Air 21 10/23/18 04:00 97.0 62 16 106/62 (77) 97 10/23/18 00:00 97.9 69 18 119/70 (86) 98 Intake and Output 10/22/18 10/23/18 18:59 06:59 Intake Total 55 ml 250 ml Balance 55 ml 250 ml Intake Oral 250 ml IV Total 55 ml # Voids 2 Laboratory Tests Test 10/23/18 06:39 White Blood Count 2.5 K/UL (4.8-10.8) L Red Blood Count 3.41 M/UL (4.20-5.40) L Hemoglobin 10.4 G/DL (12.0-16.0) L Hematocrit 32.0 % (37.0-47.0) L Mean Corpuscular Volume 94 FL (80-99) Mean Corpuscular Hemoglobin 30.5 PG (27.0-31.0) Mean Corpuscular Hemoglobin Concent 32.5 G/DL (32.0-36.0) Red Cell Distribution Width 13.0 % (11.6-14.8) Platelet Count 324 K/UL (150-450) Mean Platelet Volume 5.3 FL (6.5-10.1) L Neutrophils (%) (Auto) % (45.0-75.0) Lymphocytes (%) (Auto) % (20.0-45.0) Monocytes (%) (Auto) % (1.0-10.0) Eosinophils (%) (Auto) % (0.0-3.0) Basophils (%) (Auto) % (0.0-2.0) Differential Total Cells Counted 100 Neutrophils % (Manual) 73 % (45-75) Lymphocytes % (Manual) 26 % (20-45) Monocytes % (Manual) 1 % (1-10) Eosinophils % (Manual) 0 % (0-3) Basophils % (Manual) 0 % (0-2) Band Neutrophils 0 % (0-8) Platelet Estimate Adequate Platelet Morphology Normal Red Blood Cell Morphology Normal Sodium Level 133 MMOL/L (136-145) L Potassium Level 4.0 MMOL/L (3.5-5.1) Chloride Level 101 MMOL/L (98-107) Carbon Dioxide Level 25 MMOL/L (21-32) Anion Gap 7 mmol/L (5-15) Blood Urea Nitrogen 22 mg/dL (7-18) H Creatinine 1.2 MG/DL (0.55-1.30) Estimat Glomerular Filtration Rate mL/min (>60) Glucose Level 143 MG/DL (74-106) H Calcium Level 9.0 MG/DL (8.5-10.1) Height (Feet): 5 Height (Inches): 2.00 Weight (Pounds): 90 Medications Current Medications Medications (Trade) Dose Ordered Sig/Floyd Route PRN Reason Start Time Stop Time Status Last Admin Dose Admin Acetaminophen (Tylenol) 650 mg Q4H PRN ORAL T>100.5 10/19/18 14:45 11/17/18 18:44 10/19/18 16:57 Ceftriaxone Sodium 1 gm/ Dextrose 55 ml @ 110 mls/hr Q24H IVPB 10/21/18 14:00 10/28/18 13:59 10/23/18 16:42 Dextrose (Dextrose 50%) 25 ml Q30M PRN IV Hypoglycemia 10/19/18 14:45 11/17/18 18:44 Dextrose (Dextrose 50%) 50 ml Q30M PRN IV Hypoglycemia 10/19/18 14:45 11/17/18 18:44 Heparin Sodium (Porcine) (Heparin 5000 units/ml) 5,000 units EVERY 12 HOURS SUBQ 10/19/18 21:00 11/17/18 20:59 10/23/18 20:59 Magnesium Hydroxide (Mom) 15 ml Q6H PRN ORAL Constipation 10/21/18 13:30 11/20/18 13:29 10/21/18 14:40 Methylprednisolone Sodium Succinate (Solu-MEDROL) 60 mg EVERY 6 HOURS IV 10/22/18 18:00 11/21/18 17:59 10/23/18 18:09 Morphine Sulfate (Morphine Sulfate) 2 mg Q4H PRN IVP Severe Pain (Pain Scale 7-10) 10/19/18 14:45 10/25/18 18:44 Ondansetron HCl (Zofran) 4 mg Q6H PRN IVP Nausea & Vomiting 10/19/18 14:30 11/17/18 14:29 Oseltamivir Phosphate (Tamiflu) 30 mg DAILY ORAL 10/20/18 13:00 10/25/18 12:59 10/23/18 09:42 Polyethylene Glycol (Miralax) 17 gm DAILYPRN PRN ORAL Constipation 10/21/18 13:30 11/17/18 14:29 Promethazine HCl/ Codeine (Phenergan with Codeine) 5 ml Q4H PRN ORAL For Cough 10/19/18 14:30 11/18/18 14:29 Theophylline (Mt-Dur) 100 mg EVERY 12 HOURS ORAL 10/19/18 21:00 11/18/18 20:59 10/23/18 20:56 Assessment/Plan Assessment/Plan Hematology/Oncology Consultation Requesting MD: Isaak Herrera Date of Service: 10/23/18 Reason for consultation: Leukopenia and Anemia HPI: This is a 73-year-old female, who lives at home, complaining of fever and shortness of breath getting worse, had a cold prior to that. The patient came to [place] diagnosed with pneumonia and shortness of breath and admitted to telemetry for further care. Hematology/Oncology was consulted for Leukopenia and Anemia. Hgb 10.4, wbc 2.5. PAST MEDICAL HISTORY: Includes rheumatoid arthritis and neuropathy. PAST SURGICAL HISTORY: None. MEDICATIONS: Include cefepime, vancomycin, heparin, Zofran, morphine, Tylenol, and albuterol. ALLERGIES: Denies. SOCIAL HISTORY: No smoking. No alcohol. No intravenous drug abuse. FAMILY HISTORY: Noncontributory. PHYSICAL EXAMINATION: GENERAL: Calm in bed, oriented x3, slight short of breath. VITAL SIGNS: Temperature is 98 degrees, pulse 82, respirations 20, and blood pressure 97/67. CARDIOVASCULAR: No murmur. LUNGS: Poor air exchange. ABDOMEN: Bowel sounds distant. EXTREMITIES: No cyanosis or edema. NEUROLOGIC: The patient moves all extremities, slightly weak. LABORATORY AND DIAGNOSTIC DATA: Labs at this time show white count 2.8, hemoglobin and hematocrit 9.6/29, and platelets 173. ASSESSMENT/Recs # Anemia of chronic disease (or of iron deficiency) due to underlying chronic medical issues, multifactorial --> Anemia workup has been ordered --> No evidence of hemolysis is noted, peripheral smear has been reviewed --> Hgb goal >7. Transfuse prn. --> Epogen or iron at this time is not particularly indicated --> Medications have been reviewed # Decreased white blood cell count, (leukopenia) - wbc under 4k, could also be related to infection (pna) --> continue antibiotics with ID service, appreciate recs --> medications have been reviewed --> hepatitis and hiv have been ordered --> flow cytometry ordered for atypical lymphocytes/immature on perupheral smear --> IgA, IgG, IgM ordered, immunofixation of serum and urine ordered # UTI, Antibiotics per Infectious Disease. --> on abx # Pneumonia, O2 and pulmonary treatment. # Fever, continue to monitor temp # Shortness of breath The timing of this note does not necessarily reflect the time of the patient was seen. Greatly appreciate consultation! Emiliano Mccray MD Oct 23, 2018 21:29
[2018-10-24 04:00] VITALS: BP 117/69
[2018-10-24] MEDS: Solu-MEDROL 125mg Inj IV SCH ×2 (05:23→11:50)
[2018-10-24 06:42] LABS: HEMATOCRIT 30.9 % (37.0-47.0); HEMOGLOBIN 10.2 G/DL (12.0-16.0); MEAN CORPUSCULAR VOLUME 92 FL (80-99); PLATELET COUNT 328 K/UL (150-450); RED BLOOD COUNT 3.35 M/UL (4.20-5.40); RED CELL DISTRIBUTION WIDTH 12.6 % (11.6-14.8); WHITE BLOOD COUNT 8.8 K/UL (4.8-10.8)
[2018-10-24 06:54] LABS: ANION GAP 11 mmol/L (5-15); BLOOD UREA NITROGEN 34 mg/dL (7-18); CALCIUM 9.1 MG/DL (8.5-10.1); CARBON DIOXIDE 24 MMOL/L (21-32); CHLORIDE 101 MMOL/L (98-107); CREATININE 1.3 MG/DL (0.55-1.30); POTASSIUM 4.3 MMOL/L (3.5-5.1); SODIUM 136 MMOL/L (136-145)
--- NOTE | 2018-10-24 07:25 | NUR ---
NURSE NOTES: Patient received in stable condition, alert and oriented. Breathing unlabored on room air. Eating breakfast at this time, denies distress or pain. IV site on right arm patent and intact. Bed locked in lowest position. Call light placed within reach, will continue to monitor.
--- NOTE | 2018-10-24 07:25 | NUR ---
HAND-OFF: Report given to Colette CASTRO.
[2018-10-24 08:00] VITALS: BP 99/56
[2018-10-24] MEDS: Theophylline ER 100mg ORAL SCH ×2 (08:07→21:56)
[2018-10-24] MEDS: Heparin 5000 units/ml inj SUBQ SCH ×2 (08:09→21:57)
[2018-10-24 12:00] VITALS: BP 107/62
--- NOTE | 2018-10-24 12:53 | Infectious Diseases Prog Note ---
Assessment/Plan Assessment/Plan Assessment: Sepsis;SP PNA, probable Flu (despite neg screen test) -CXR: Diffuse bilateral patchy interstitial and alveolar opacities, which may represent pneumonia versus pulmonary edema. -inlfuenza sc , legionella ag urine neg -sp cx normal fresp aaliyah -Bcxneg Low grade fever; SP Leukopenia; SP Anemia Hx of pulmonary MAC 2017 RA osteoporosis Plan: -Continue Ceftriaxone #4 (abx d#02/22) for PNA given no isolation of resistant organisms -Continue empiric Tamiflu #/5 -10/23 SP Azithromycin #4 -/ SP IV Vancomycin #4 , Cefepime #4 -/ SP Ceftriaxone and azithromycin x1 -f/u cx -Monitor CBC/CMP, temperatures -aspiration precautions -steroids per pulm; favor short course given prior hx of pulmonary MAC Thank you for this consultation. Will continue to follow along with you. Discussed with RN. Subjective Allergies: Coded Allergies: No Known Allergies (Unverified , 10/02/15) Subjective afebrile leukopenia resolved at RA feeling better Bcx neg Objective Vital Signs Last 24 Hour Vital Signs Date Time Temp Pulse Resp B/P (MAP) Pulse Ox O2 Delivery O2 Flow Rate FiO2 10/24/18 09:00 Room Air 10/24/18 08:00 97.7 95 18 99/56 (70) 10/24/18 07:02 77 12 Room Air 21 10/24/18 04:00 97.0 67 20 117/69 (85) 98 10/23/18 23:54 97.7 69 17 114/68 (83) 98 10/23/18 21:00 Room Air 10/23/18 20:09 66 18 Room Air 21 10/23/18 20:00 98.0 69 17 112/64 (80) 96 10/23/18 16:00 98.2 68 16 115/67 (83) Height (Feet): 5 Height (Inches): 2.00 Weight (Pounds): 90 Objective GENERAL: Calm in bed, oriented x3, slight short of breath. CARDIOVASCULAR: No murmur. LUNGS: Poor air exchange. ABDOMEN: Bowel sounds distant. EXTREMITIES: No cyanosis or edema. NEUROLOGIC: The patient moves all extremities, slightly weak. Laboratory Tests Test 10/24/18 05:42 10/24/18 05:43 10/24/18 10:40 White Blood Count 8.8 K/UL (4.8-10.8) # Red Blood Count 3.35 M/UL (4.20-5.40) L Hemoglobin 10.2 G/DL (12.0-16.0) L Hematocrit 30.9 % (37.0-47.0) L Mean Corpuscular Volume 92 FL (80-99) Mean Corpuscular Hemoglobin 30.4 PG (27.0-31.0) Mean Corpuscular Hemoglobin Concent 33.0 G/DL (32.0-36.0) Red Cell Distribution Width 12.6 % (11.6-14.8) Platelet Count 328 K/UL (150-450) Mean Platelet Volume 5.0 FL (6.5-10.1) L Neutrophils (%) (Auto) % (45.0-75.0) Lymphocytes (%) (Auto) % (20.0-45.0) Monocytes (%) (Auto) % (1.0-10.0) Eosinophils (%) (Auto) % (0.0-3.0) Basophils (%) (Auto) % (0.0-2.0) Differential Total Cells Counted 100 Neutrophils % (Manual) 89 % (45-75) H Lymphocytes % (Manual) 7 % (20-45) L Monocytes % (Manual) 4 % (1-10) Eosinophils % (Manual) 0 % (0-3) Basophils % (Manual) 0 % (0-2) Band Neutrophils 0 % (0-8) Platelet Estimate Adequate Platelet Morphology Normal Red Blood Cell Morphology Normal Sodium Level 136 MMOL/L (136-145) Potassium Level 4.3 MMOL/L (3.5-5.1) Chloride Level 101 MMOL/L (98-107) Carbon Dioxide Level 24 MMOL/L (21-32) Anion Gap 11 mmol/L (5-15) Blood Urea Nitrogen 34 mg/dL (7-18) H Creatinine 1.3 MG/DL (0.55-1.30) Estimat Glomerular Filtration Rate mL/min (>60) Glucose Level 139 MG/DL (74-106) H Calcium Level 9.1 MG/DL (8.5-10.1) Total Protein (PEP) Pending Albumin (PEP) Pending Globulin (PEP) Pending Albumin/Globulin Ratio Pending Zadag-[id number] Pending Ohlbo-2-Hxbfkuzcv Pending Beta Globulins Pending Beta Gamma Globulin Pending PEP Abnormal Protein Bands Pending Protein Electrophoresis Interpret Pending Immunoglobulin G Pending Immunoglobulin A Pending Immunoglobulin M Pending Immunofixation Screen Pending Ferritin 220 NG/ML (8-388) Urine Immunofixation Pending Current Medications Medications (Trade) Dose Ordered Sig/Floyd Route PRN Reason Start Time Stop Time Status Last Admin Dose Admin Acetaminophen (Tylenol) 650 mg Q4H PRN ORAL T>100.5 10/19/18 14:45 11/17/18 18:44 10/19/18 16:57 Ceftriaxone Sodium 1 gm/ Dextrose 55 ml @ 110 mls/hr Q24H IVPB 10/21/18 14:00 10/28/18 13:59 10/23/18 16:42 Dextrose (Dextrose 50%) 25 ml Q30M PRN IV Hypoglycemia 10/19/18 14:45 11/17/18 18:44 Dextrose (Dextrose 50%) 50 ml Q30M PRN IV Hypoglycemia 10/19/18 14:45 11/17/18 18:44 Heparin Sodium (Porcine) (Heparin 5000 units/ml) 5,000 units EVERY 12 HOURS SUBQ 10/19/18 21:00 11/17/18 20:59 10/24/18 08:09 Magnesium Hydroxide (Mom) 15 ml Q6H PRN ORAL Constipation 10/21/18 13:30 11/20/18 13:29 10/21/18 14:40 Methylprednisolone Sodium Succinate (Solu-MEDROL) 60 mg EVERY 6 HOURS IV 10/22/18 18:00 11/21/18 17:59 10/24/18 11:50 Morphine Sulfate (Morphine Sulfate) 2 mg Q4H PRN IVP Severe Pain (Pain Scale 7-10) 10/19/18 14:45 10/25/18 18:44 Ondansetron HCl (Zofran) 4 mg Q6H PRN IVP Nausea & Vomiting 10/19/18 14:30 11/17/18 14:29 Oseltamivir Phosphate (Tamiflu) 30 mg DAILY ORAL 10/20/18 13:00 10/25/18 12:59 10/24/18 08:07 Polyethylene Glycol (Miralax) 17 gm DAILYPRN PRN ORAL Constipation 10/21/18 13:30 11/17/18 14:29 Promethazine HCl/ Codeine (Phenergan with Codeine) 5 ml Q4H PRN ORAL For Cough 10/19/18 14:30 11/18/18 14:29 Theophylline (Mt-Dur) 100 mg EVERY 12 HOURS ORAL 10/19/18 21:00 11/18/18 20:59 10/24/18 08:07 Nayla Lopez M.D. Oct 24, 2018 12:53
[2018-10-24] MEDS: cefTRIAXone 1 GM in D5W 55 ML IVPB SCH (13:08)
--- NOTE | 2018-10-24 13:15 | Pulmonology Progress Note ---
Assessment/Plan Problems: (1) Pneumonia (2) Acute respiratory failure (3) Severe anemia (4) Rheumatoid arthritis Assessment/Plan improving slowly respiratory treatment check sputum iv abx chest pt check electrolytes titrate fio2 to sat of 92% add short course of Solumedrol, decrease to QD hypergammaglobulinemia, urine protein electrophoresis pending Subjective ROS Limited/Unobtainable: No Constitutional: Reports: no symptoms HEENT: Repors: no symptoms Respiratory: Reports: no symptoms Allergies: Coded Allergies: No Known Allergies (Unverified , 10/02/15) Objective Last 24 Hour Vital Signs Date Time Temp Pulse Resp B/P (MAP) Pulse Ox O2 Delivery O2 Flow Rate FiO2 10/24/18 09:00 Room Air 10/24/18 08:00 97.7 95 18 99/56 (70) 10/24/18 07:02 77 12 Room Air 21 10/24/18 04:00 97.0 67 20 117/69 (85) 98 10/23/18 23:54 97.7 69 17 114/68 (83) 98 10/23/18 21:00 Room Air 10/23/18 20:09 66 18 Room Air 21 10/23/18 20:00 98.0 69 17 112/64 (80) 96 10/23/18 16:00 98.2 68 16 115/67 (83) Intake and Output 10/23/18 10/24/18 19:00 07:00 Intake Total 1255 ml 1020 ml Balance 1255 ml 1020 ml Intake Oral 1200 ml 1020 ml IV Total 55 ml # Voids 4 # Bowel Movements 1 General Appearance: WD/WN, no acute distress HEENT: normocephalic Respiratory/Chest: chest wall non-tender, crackles/rales Breasts: no masses Cardiovascular: normal peripheral pulses, normal rate Abdomen: normal bowel sounds, soft, non tender Genitourinary: normal external genitalia Extremities: no cyanosis Skin: no rash 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 Lymphatic: no neck adenopathy Laboratory Tests 10/24/18 05:42: White Blood Count 8.8#, Red Blood Count 3.35L, Hemoglobin 10.2L, Hematocrit 30.9L, Mean Corpuscular Volume 92, Mean Corpuscular Hemoglobin 30.4, Mean Corpuscular Hemoglobin Concent 33.0, Red Cell Distribution Width 12.6, Platelet Count 328, Mean Platelet Volume 5.0L, Neutrophils (%) (Auto) , Lymphocytes (%) ( Auto) , Monocytes (%) (Auto) , Eosinophils (%) (Auto) , Basophils (%) (Auto) , Differential Total Cells Counted 100, Neutrophils % (Manual) 89H, Lymphocytes % (Manual) 7L, Monocytes % (Manual) 4, Eosinophils % (Manual) 0, Basophils % ( Manual) 0, Band Neutrophils 0, Platelet Estimate Adequate, Platelet Morphology Normal, Red Blood Cell Morphology Normal, Sodium Level 136, Potassium Level 4.3 , Chloride Level 101, Carbon Dioxide Level 24, Anion Gap 11, Blood Urea Nitrogen 34H, Creatinine 1.3, Estimat Glomerular Filtration Rate , Glucose Level 139H, Calcium Level 9.1, Total Protein (PEP) [Pending], Albumin (PEP) [ Pending], Globulin (PEP) [Pending], Albumin/Globulin Ratio [Pending], Alpha-1- Globulins [Pending], Urkex-3-Hlcigtkwu [Pending], Beta Globulins [Pending], Beta Gamma Globulin [Pending], PEP Abnormal Protein Bands [Pending], Protein Electrophoresis Interpret [Pending], Immunoglobulin G [Pending], Immunoglobulin A [Pending], Immunoglobulin M [Pending], Immunofixation Screen [Pending] 10/24/18 05:43: Ferritin 220 10/24/18 10:40: Urine Immunofixation [Pending] Current Medications Medications (Trade) Dose Ordered Sig/Floyd Route PRN Reason Start Time Stop Time Status Last Admin Dose Admin Acetaminophen (Tylenol) 650 mg Q4H PRN ORAL T>100.5 10/19/18 14:45 11/17/18 18:44 10/19/18 16:57 Ceftriaxone Sodium 1 gm/ Dextrose 55 ml @ 110 mls/hr Q24H IVPB 10/21/18 14:00 10/28/18 13:59 10/24/18 13:08 Dextrose (Dextrose 50%) 25 ml Q30M PRN IV Hypoglycemia 10/19/18 14:45 11/17/18 18:44 Dextrose (Dextrose 50%) 50 ml Q30M PRN IV Hypoglycemia 10/19/18 14:45 11/17/18 18:44 Heparin Sodium (Porcine) (Heparin 5000 units/ml) 5,000 units EVERY 12 HOURS SUBQ 10/19/18 21:00 11/17/18 20:59 10/24/18 08:09 Magnesium Hydroxide (Mom) 15 ml Q6H PRN ORAL Constipation 10/21/18 13:30 11/20/18 13:29 10/21/18 14:40 Methylprednisolone Sodium Succinate (Solu-MEDROL) 60 mg DAILY IV 10/25/18 09:00 11/21/18 17:59 Morphine Sulfate (Morphine Sulfate) 2 mg Q4H PRN IVP Severe Pain (Pain Scale 7-10) 10/19/18 14:45 10/25/18 18:44 Ondansetron HCl (Zofran) 4 mg Q6H PRN IVP Nausea & Vomiting 10/19/18 14:30 11/17/18 14:29 Polyethylene Glycol (Miralax) 17 gm DAILYPRN PRN ORAL Constipation 10/21/18 13:30 11/17/18 14:29 Promethazine HCl/ Codeine (Phenergan with Codeine) 5 ml Q4H PRN ORAL For Cough 10/19/18 14:30 11/18/18 14:29 Theophylline (Mt-Dur) 100 mg EVERY 12 HOURS ORAL 10/19/18 21:00 11/18/18 20:59 10/24/18 08:07 Stephan Perez MD Oct 24, 2018 13:15
--- NOTE | 2018-10-24 13:26 | General Progress Note ---
Assessment/Plan Problem List: (1) Malnutrition ICD Codes: E46 - Unspecified protein-calorie malnutrition SNOMED: 32527052 (2) Fever ICD Codes: R50.9 - Fever, unspecified SNOMED: 508908874 (3) SOB (shortness of breath) ICD Codes: R06.02 - Shortness of breath SNOMED: 907308094 (4) Anemia ICD Codes: D64.9 - Anemia, unspecified SNOMED: 935511374 (5) Neuropathy ICD Codes: G62.9 - Polyneuropathy, unspecified SNOMED: 057795814 (6) Rheumatoid arthritis ICD Codes: M06.9 - Rheumatoid arthritis, unspecified SNOMED: 16241786 (7) Pneumonia ICD Codes: J18.9 - Pneumonia, unspecified organism SNOMED: 381425248 Status: stable, progressing Assessment/Plan o2 pulm tx abx pt diet dc w hh if clear Subjective Constitutional: Reports: weakness Allergies: Coded Allergies: No Known Allergies (Unverified , 10/02/15) All Systems: reviewed and negative except above Subjective calm sl sob Objective Last 24 Hour Vital Signs Date Time Temp Pulse Resp B/P (MAP) Pulse Ox O2 Delivery O2 Flow Rate FiO2 10/24/18 09:00 Room Air 10/24/18 08:00 97.7 95 18 99/56 (70) 10/24/18 07:02 77 12 Room Air 21 10/24/18 04:00 97.0 67 20 117/69 (85) 98 10/23/18 23:54 97.7 69 17 114/68 (83) 98 10/23/18 21:00 Room Air 10/23/18 20:09 66 18 Room Air 21 10/23/18 20:00 98.0 69 17 112/64 (80) 96 10/23/18 16:00 98.2 68 16 115/67 (83) Intake and Output 10/23/18 10/24/18 19:00 07:00 Intake Total 1255 ml 1020 ml Balance 1255 ml 1020 ml Intake Oral 1200 ml 1020 ml IV Total 55 ml # Voids 4 # Bowel Movements 1 Laboratory Tests 10/24/18 05:42: White Blood Count 8.8#, Red Blood Count 3.35L, Hemoglobin 10.2L, Hematocrit 30.9L, Mean Corpuscular Volume 92, Mean Corpuscular Hemoglobin 30.4, Mean Corpuscular Hemoglobin Concent 33.0, Red Cell Distribution Width 12.6, Platelet Count 328, Mean Platelet Volume 5.0L, Neutrophils (%) (Auto) , Lymphocytes (%) ( Auto) , Monocytes (%) (Auto) , Eosinophils (%) (Auto) , Basophils (%) (Auto) , Differential Total Cells Counted 100, Neutrophils % (Manual) 89H, Lymphocytes % (Manual) 7L, Monocytes % (Manual) 4, Eosinophils % (Manual) 0, Basophils % ( Manual) 0, Band Neutrophils 0, Platelet Estimate Adequate, Platelet Morphology Normal, Red Blood Cell Morphology Normal, Sodium Level 136, Potassium Level 4.3 , Chloride Level 101, Carbon Dioxide Level 24, Anion Gap 11, Blood Urea Nitrogen 34H, Creatinine 1.3, Estimat Glomerular Filtration Rate , Glucose Level 139H, Calcium Level 9.1, Total Protein (PEP) [Pending], Albumin (PEP) [ Pending], Globulin (PEP) [Pending], Albumin/Globulin Ratio [Pending], Alpha-1- Globulins [Pending], Fmuag-8-Taalqbneo [Pending], Beta Globulins [Pending], Beta Gamma Globulin [Pending], PEP Abnormal Protein Bands [Pending], Protein Electrophoresis Interpret [Pending], Immunoglobulin G [Pending], Immunoglobulin A [Pending], Immunoglobulin M [Pending], Immunofixation Screen [Pending] 10/24/18 05:43: Ferritin 220 10/24/18 10:40: Urine Immunofixation [Pending] Height (Feet): 5 Height (Inches): 2.00 Weight (Pounds): 90 General Appearance: lethargic EENT: normal ENT inspection Neck: normal alignment Cardiovascular: normal peripheral pulses, normal rate, regular rhythm Respiratory/Chest: chest wall non-tender, lungs clear, normal breath sounds Abdomen: normal bowel sounds, non tender, soft Extremities: normal inspection Edema: no edema noted Arm (L), no edema noted Arm (R), no edema noted Leg (L), no edema noted Leg (R), no edema noted Pedal (L), no edema noted Pedal (R), no edema noted Generalized Neurologic: motor weakness Skin: normal pigmentation, warm/dry Isaak Herrera DO Oct 24, 2018 13:26
--- NOTE | 2018-10-24 14:38 | NUR ---
RD ASSESSMENT & RECOMMENDATIONS SEE CARE ACTIVITY FOR COMPLETE ASSESSMENT DAILY ESTIMATED NEEDS: Needs based on Underweight/ 42kg 30-35 kcals/kg 7080-2649 total kcals 1-1.2 g protein/kg 42-50 g total protein 25-30 mL/kg 9763-0916 total fluid mLs NUTRITION DIAGNOSIS: (1) Increased kcal/pro needs R/T underweight status as evidenced by pt @ 93% IBW, w/ moderate temporal wasting, low BMI per guidelines. PO DIET RECOMMENDATIONS: REGULAR/ texture as tolerated ADDITIONAL RECOMMENDATIONS: * Calibrated bedscale wt, weekly weights given underweight status * Monitor PO intake closely-> noted good intake * Snacks BID * Monitor BG on solumedrol/ need for ssi
[2018-10-24 16:00] VITALS: BP 111/65
--- NOTE | 2018-10-24 19:55 | NUR ---
NURSE NOTES: Received report from GLORIA Alvarenga. Patient A&Ox4, [place] speaking. On room air, no signs of distress or labored breathing. IV intact, patent, and saline locked. Bed in lowest position with call light in reach. Will continue with plan of care.
[2018-10-24 20:00] VITALS: BP 106/59
--- NOTE | 2018-10-24 22:45 | General Progress Note ---
Assessment/Plan Assessment/Plan ASSESSMENT/Recs # Anemia of chronic disease (or of iron deficiency) due to underlying chronic medical issues, multifactorial --> Anemia workup has been ordered --> No evidence of hemolysis is noted, peripheral smear has been reviewed --> Hgb goal >7. Transfuse prn. --> Epogen or iron at this time is not particularly indicated --> Medications have been reviewed # Decreased white blood cell count, (leukopenia) - wbc under 4k, could also be related to infection (pna) --> continue antibiotics with ID service, appreciate recs --> medications have been reviewed --> hepatitis and hiv have been ordered --> abnormal m-sike was noted therefore --> flow cytometry ordered for atypical lymphocytes/immature on perupheral smear --> IgA, IgG, IgM ordered, immunofixation of serum and urine ordered --> f.u in outpatient setting with hematology # UTI, Antibiotics per Infectious Disease. --> on abx # Pneumonia, O2 and pulmonary treatment. # Fever, continue to monitor temp # Shortness of breath The timing of this note does not necessarily reflect the time of the patient was seen. Greatly appreciate consultation! Subjective Constitutional: Denies: no symptoms, chills, diaphoresis, fever, malaise, weakness, other HEENT: Denies: no symptoms, eye pain, blurred vision, tearing, double vision, ear pain, ear discharge, nose pain, nose congestion, throat pain, throat swelling, mouth pain, mouth swelling, other Cardiovascular: Denies: no symptoms, chest pain, edema, irregular heart rate, lightheadedness, palpitations, syncope, other Respiratory: Denies: no symptoms, cough, orthopnea, shortness of breath, SOB with excertion, SOB at rest, sputum, stridor, wheezing, other Gastrointestinal/Abdominal: Denies: no symptoms, abdomen distended, abdominal pain, black stools, tarry stools, blood in stool, constipated, diarrhea, difficulty swallowing, nausea, poor appetite, poor fluid intake, rectal bleeding , vomiting, other Genitourinary: Denies: no symptoms, burning, discharge, frequency, flank pain, hematuria, incontinence, pain, urgency, other Neurologic/Psychiatric: Denies: no symptoms, anxiety, depressed, emotional problems, headache, numbness, paresthesia, pre-existing deficit, seizure, tingling, tremors, weakness, other Endocrine: Denies: no symptoms, excessive sweating, flushing, intolerance to cold, intolerance to heat, increased hunger, increased thirst, increased urine, unexplained weight gain, unexplained weight loss, other Allergies: Coded Allergies: No Known Allergies (Unverified , 10/02/15) Subjective 10/24: seen by bedside, awake, comfortable, no events reported. Objective Last 24 Hour Vital Signs Date Time Temp Pulse Resp B/P (MAP) Pulse Ox O2 Delivery O2 Flow Rate FiO2 10/24/18 20:00 97.8 67 18 106/59 (75) 98 10/24/18 16:00 97.9 64 18 111/65 (80) 97 10/24/18 12:00 97.5 86 18 107/62 (77) 97 10/24/18 09:00 Room Air 10/24/18 08:00 97.7 95 18 99/56 (70) 10/24/18 07:02 77 12 Room Air 21 10/24/18 04:00 97.0 67 20 117/69 (85) 98 10/23/18 23:54 97.7 69 17 114/68 (83) 98 Intake and Output 10/23/18 10/24/18 18:59 06:59 Intake Total 1255 ml 1020 ml Balance 1255 ml 1020 ml Intake Oral 1200 ml 1020 ml IV Total 55 ml # Voids 4 # Bowel Movements 1 Laboratory Tests 10/24/18 05:42: White Blood Count 8.8#, Red Blood Count 3.35L, Hemoglobin 10.2L, Hematocrit 30.9L, Mean Corpuscular Volume 92, Mean Corpuscular Hemoglobin 30.4, Mean Corpuscular Hemoglobin Concent 33.0, Red Cell Distribution Width 12.6, Platelet Count 328, Mean Platelet Volume 5.0L, Neutrophils (%) (Auto) , Lymphocytes (%) ( Auto) , Monocytes (%) (Auto) , Eosinophils (%) (Auto) , Basophils (%) (Auto) , Differential Total Cells Counted 100, Neutrophils % (Manual) 89H, Lymphocytes % (Manual) 7L, Monocytes % (Manual) 4, Eosinophils % (Manual) 0, Basophils % ( Manual) 0, Band Neutrophils 0, Platelet Estimate Adequate, Platelet Morphology Normal, Red Blood Cell Morphology Normal, Sodium Level 136, Potassium Level 4.3 , Chloride Level 101, Carbon Dioxide Level 24, Anion Gap 11, Blood Urea Nitrogen 34H, Creatinine 1.3, Estimat Glomerular Filtration Rate , Glucose Level 139H, Calcium Level 9.1, Total Protein (PEP) [Pending], Albumin (PEP) [ Pending], Globulin (PEP) [Pending], Albumin/Globulin Ratio [Pending], Alpha-1- Globulins [Pending], Dezer-0-Qjeaqjtit [Pending], Beta Globulins [Pending], Beta Gamma Globulin [Pending], PEP Abnormal Protein Bands [Pending], Protein Electrophoresis Interpret [Pending], Immunoglobulin G [Pending], Immunoglobulin A [Pending], Immunoglobulin M [Pending], Immunofixation Screen [Pending] 10/24/18 05:43: Ferritin 220 10/24/18 10:40: Urine Immunofixation [Pending] Height (Feet): 5 Height (Inches): 2.00 Weight (Pounds): 90 Objective PHYSICAL EXAMINATION: GENERAL: Calm in bed, oriented x3, slight short of breath. VITAL SIGNS: Temperature is 98 degrees, pulse 82, respirations 20, and blood pressure 97/67. CARDIOVASCULAR: No murmur. LUNGS: Poor air exchange. ABDOMEN: Bowel sounds distant. EXTREMITIES: No cyanosis or edema. NEUROLOGIC: The patient moves all extremities, slightly weak. Emiliano Mccray MD Oct 24, 2018 22:45
[2018-10-25] VITALS: BP 110/62
[2018-10-25 04:00] VITALS: BP 113/69
--- NOTE | 2018-10-25 07:07 | NUR ---
HAND-OFF: Report given to Wilbert Ring RN.
--- NOTE | 2018-10-25 07:33 | Pulmonology Progress Note ---
Assessment/Plan Assessment/Plan ASSESSMENT Sepsis PNA probably flu RA anemia Hx of pulmonary MAC Leukopenia- resolved OP SPEP abnormal (elevated beta globin) PLAN OF CARE MS floor sputum cx negative, blood cx negative , influenza screen test negative completed empiric antibiotics and Tamiflu ( probably flu as per ID despite negative influenza test ) suppl O2 as needed , titrate to keep pulse ox above 90 %, pulmonary toilet prn trial of Theophylline short course of steroid and change to Medrol Dosepak upon discharge antitussives prn aspiration precaution leukopenia resolved Hgb and Hct closely monitor with goal to keep hemoglobin above 7 , remained at baseline anemia workup c/w anemia of chronic disease, stable B12 and folate CEA WNL, stool OB negative DVT prophylaxis care supportive care bowel regimen clear for discharge from pulmonary standpoint case discussed and evaluated by supervising physician Subjective Allergies: Coded Allergies: No Known Allergies (Unverified , 10/02/15) Subjective afebrile, no leukocytosis, denies chest pain, SOB pulse ox stable on RA completed abx Objective Last 24 Hour Vital Signs Date Time Temp Pulse Resp B/P (MAP) Pulse Ox O2 Delivery O2 Flow Rate FiO2 10/25/18 04:00 97.8 64 18 113/69 (84) 95 10/25/18 00:00 97.9 65 18 110/62 (78) 95 10/24/18 23:52 73 16 Room Air 21 10/24/18 21:00 Room Air 10/24/18 20:00 97.8 67 18 106/59 (75) 98 10/24/18 16:00 97.9 64 18 111/65 (80) 97 10/24/18 12:00 97.5 86 18 107/62 (77) 97 10/24/18 09:00 Room Air 10/24/18 08:00 97.7 95 18 99/56 (70) Intake and Output 10/24/18 10/25/18 19:00 07:00 Intake Total 920 ml 240 ml Balance 920 ml 240 ml Intake Oral 920 ml 240 ml # Voids 4 2 General Appearance: no acute distress, other - awake, alert, responsive thin female HEENT: normocephalic, atraumatic, anicteric, mucous membranes moist Respiratory/Chest: no respiratory distress, no accessory muscle use, expiratory wheezing - few isolated exp wheezes Cardiovascular: normal rate, no JVD Abdomen: normal bowel sounds, soft, non tender, non distended Extremities: no edema, pedal pulses normal, other - bilateral hands with rheumatoid changes Neurologic/Psychiatric: no motor/sensory deficits, alert, oriented x 3, responsive Laboratory Tests 10/24/18 10:40: Urine Immunofixation [Pending] Current Medications Medications (Trade) Dose Ordered Sig/Floyd Route PRN Reason Start Time Stop Time Status Last Admin Dose Admin Acetaminophen (Tylenol) 650 mg Q4H PRN ORAL T>100.5 10/19/18 14:45 11/17/18 18:44 10/19/18 16:57 Ceftriaxone Sodium 1 gm/ Dextrose 55 ml @ 110 mls/hr Q24H IVPB 10/21/18 14:00 10/28/18 13:59 10/24/18 13:08 Dextrose (Dextrose 50%) 25 ml Q30M PRN IV Hypoglycemia 10/19/18 14:45 11/17/18 18:44 Dextrose (Dextrose 50%) 50 ml Q30M PRN IV Hypoglycemia 10/19/18 14:45 11/17/18 18:44 Heparin Sodium (Porcine) (Heparin 5000 units/ml) 5,000 units EVERY 12 HOURS SUBQ 10/19/18 21:00 11/17/18 20:59 10/24/18 21:57 Magnesium Hydroxide (Mom) 15 ml Q6H PRN ORAL Constipation 10/21/18 13:30 11/20/18 13:29 10/21/18 14:40 Methylprednisolone Sodium Succinate (Solu-MEDROL) 60 mg DAILY IV 10/25/18 09:00 11/21/18 17:59 Morphine Sulfate (Morphine Sulfate) 2 mg Q4H PRN IVP Severe Pain (Pain Scale 7-10) 10/19/18 14:45 10/25/18 18:44 Ondansetron HCl (Zofran) 4 mg Q6H PRN IVP Nausea & Vomiting 10/19/18 14:30 11/17/18 14:29 Polyethylene Glycol (Miralax) 17 gm DAILYPRN PRN ORAL Constipation 10/21/18 13:30 11/17/18 14:29 Promethazine HCl/ Codeine (Phenergan with Codeine) 5 ml Q4H PRN ORAL For Cough 10/19/18 14:30 11/18/18 14:29 Theophylline (Mt-Dur) 100 mg EVERY 12 HOURS ORAL 10/19/18 21:00 11/18/18 20:59 10/24/18 21:56 Nora Hinojosa NP Oct 25, 2018 07:33
[2018-10-25 08:00] VITALS: BP 100/80
[2018-10-25] MEDS: Theophylline ER 100mg ORAL SCH (08:15)
[2018-10-25] MEDS: Heparin 5000 units/ml inj SUBQ SCH (08:24)
--- NOTE | 2018-10-25 08:24 | General Progress Note ---
Assessment/Plan Problem List: (1) Malnutrition ICD Codes: E46 - Unspecified protein-calorie malnutrition SNOMED: 17217908 (2) Fever ICD Codes: R50.9 - Fever, unspecified SNOMED: 298276596 (3) SOB (shortness of breath) ICD Codes: R06.02 - Shortness of breath SNOMED: 551591147 (4) Anemia ICD Codes: D64.9 - Anemia, unspecified SNOMED: 351535442 (5) Neuropathy ICD Codes: G62.9 - Polyneuropathy, unspecified SNOMED: 538126772 (6) Rheumatoid arthritis ICD Codes: M06.9 - Rheumatoid arthritis, unspecified SNOMED: 24032363 (7) Pneumonia ICD Codes: J18.9 - Pneumonia, unspecified organism SNOMED: 100228375 Status: stable, progressing Assessment/Plan o2 pulm tx abx pt diet cbc bmp am brotman aru eval Subjective Constitutional: Reports: weakness Allergies: Coded Allergies: No Known Allergies (Unverified , 10/02/15) All Systems: reviewed and negative except above Subjective calm sl sob Objective Last 24 Hour Vital Signs Date Time Temp Pulse Resp B/P (MAP) Pulse Ox O2 Delivery O2 Flow Rate FiO2 10/25/18 04:00 97.8 64 18 113/69 (84) 95 10/25/18 00:00 97.9 65 18 110/62 (78) 95 10/24/18 23:52 73 16 Room Air 21 10/24/18 21:00 Room Air 10/24/18 20:00 97.8 67 18 106/59 (75) 98 10/24/18 16:00 97.9 64 18 111/65 (80) 97 10/24/18 12:00 97.5 86 18 107/62 (77) 97 10/24/18 09:00 Room Air Intake and Output 10/24/18 10/25/18 19:00 07:00 Intake Total 920 ml 240 ml Balance 920 ml 240 ml Intake Oral 920 ml 240 ml # Voids 4 2 Laboratory Tests 10/24/18 10:40: Urine Immunofixation [Pending] Height (Feet): 5 Height (Inches): 2.00 Weight (Pounds): 90 General Appearance: lethargic EENT: normal ENT inspection Neck: normal alignment Cardiovascular: normal peripheral pulses, normal rate, regular rhythm Respiratory/Chest: chest wall non-tender, lungs clear, normal breath sounds Abdomen: normal bowel sounds, non tender, soft Extremities: normal inspection Edema: no edema noted Arm (L), no edema noted Arm (R), no edema noted Leg (L), no edema noted Leg (R), no edema noted Pedal (L), no edema noted Pedal (R), no edema noted Generalized Neurologic: motor weakness Skin: normal pigmentation, warm/dry Isaak Herrera DO Oct 25, 2018 08:23
[2018-10-25] MEDS ORDERED: Solu-MEDROL 125mg Inj IV SCH (09:00)
--- NOTE | 2018-10-25 09:11 | NUR ---
CHARGE NURSE NOTES: PATIENT REQUESTING DISCHARGE HOME; NOTIFIED DR. GUPTA BECAUSE CASE MANAGEMENT CONSULT PUT IN FOR ARU CONSULT. JANUARY MORENO NOTIFIED FOR RX. WILL CONTINUE TO MONITOR.
--- NOTE | 2018-10-25 09:22 | Infectious Diseases Prog Note ---
Assessment/Plan Assessment/Plan Sepsis;SP PNA, probable Flu (despite neg screen test) -CXR: Diffuse bilateral patchy interstitial and alveolar opacities, which may represent pneumonia versus pulmonary edema. -inlfuenza sc , legionella ag urine neg -sp cx normal fresp aaliyah -Bcxneg Low grade fever; SP Leukopenia; SP Anemia Hx of pulmonary MAC 2016 RA osteoporosis Plan: - Monitor off Abx -10/24 SP Tamiflu #5 and Ceftriaxone #5 -/7 SP Azithromycin #4 -3/5 SP IV Vancomycin #4 , Cefepime #4 -3/2 SP Ceftriaxone and azithromycin x1 -f/u cx -Monitor CBC/CMP, temperatures -aspiration precautions -steroids per pulm; favor short course given prior hx of pulmonary MAC Will continue to follow along with you. Subjective Allergies: Coded Allergies: No Known Allergies (Unverified , 10/02/15) Subjective Afebrile on RA WBCs increased to 8.8 today Objective Vital Signs Last 24 Hour Vital Signs Date Time Temp Pulse Resp B/P (MAP) Pulse Ox O2 Delivery O2 Flow Rate FiO2 10/25/18 08:00 98.4 65 16 100/80 (87) 97 10/25/18 04:00 97.8 64 18 113/69 (84) 95 10/25/18 00:00 97.9 65 18 110/62 (78) 95 10/24/18 23:52 73 16 Room Air 21 10/24/18 21:00 Room Air 10/24/18 20:00 97.8 67 18 106/59 (75) 98 10/24/18 16:00 97.9 64 18 111/65 (80) 97 10/24/18 12:00 97.5 86 18 107/62 (77) 97 Height (Feet): 5 Height (Inches): 2.00 Weight (Pounds): 90 Objective GENERAL:NAD, Awake and alert CARDIOVASCULAR: RRR, No murmur. LUNGS: Soft crackles B/L, No W ABDOMEN: Soft, NT Laboratory Tests Test 10/24/18 10:40 Urine Immunofixation Pending Current Medications Medications (Trade) Dose Ordered Sig/Floyd Route PRN Reason Start Time Stop Time Status Last Admin Dose Admin Acetaminophen (Tylenol) 650 mg Q4H PRN ORAL T>100.5 10/19/18 14:45 11/17/18 18:44 3/3/19 16:57 Ceftriaxone Sodium 1 gm/ Dextrose 55 ml @ 110 mls/hr Q24H IVPB 10/21/18 14:00 10/28/18 13:59 10/24/18 13:08 Dextrose (Dextrose 50%) 25 ml Q30M PRN IV Hypoglycemia 10/19/18 14:45 11/17/18 18:44 Dextrose (Dextrose 50%) 50 ml Q30M PRN IV Hypoglycemia 10/19/18 14:45 11/17/18 18:44 Heparin Sodium (Porcine) (Heparin 5000 units/ml) 5,000 units EVERY 12 HOURS SUBQ 10/19/18 21:00 11/17/18 20:59 10/25/18 08:24 Magnesium Hydroxide (Mom) 15 ml Q6H PRN ORAL Constipation 10/21/18 13:30 11/20/18 13:29 10/21/18 14:40 Methylprednisolone Sodium Succinate (Solu-MEDROL) 60 mg DAILY IV 10/25/18 09:00 11/21/18 17:59 10/25/18 08:15 Morphine Sulfate (Morphine Sulfate) 2 mg Q4H PRN IVP Severe Pain (Pain Scale 7-10) 10/19/18 14:45 10/25/18 18:44 Ondansetron HCl (Zofran) 4 mg Q6H PRN IVP Nausea & Vomiting 10/19/18 14:30 11/17/18 14:29 Polyethylene Glycol (Miralax) 17 gm DAILYPRN PRN ORAL Constipation 10/21/18 13:30 11/17/18 14:29 Promethazine HCl/ Codeine (Phenergan with Codeine) 5 ml Q4H PRN ORAL For Cough 10/19/18 14:30 11/18/18 14:29 Theophylline (Mt-Dur) 100 mg EVERY 12 HOURS ORAL 10/19/18 21:00 11/18/18 20:59 10/25/18 08:15 Cruz Griggs MD Oct 25, 2018 09:22
--- NOTE | 2018-10-25 10:20 | NUR ---
NURSE NOTES: RN LEFT MESSAGE FOR PT'S SON PEGGY ZAYAS REGARDING DISCHARGE.
[2018-10-25] MEDS ORDERED: MEDROL DOSEPAK4 MG ORAL (10:21)
--- NOTE | 2018-10-25 11:44 | NUR ---
DISCHARGE NURSE NOTES: PT'S SON, PEGGY, PRESENT AT BEDSIDE. EDUCATED ON DISCHARGE MEDS AND PACKET. SON VERBALIZED UNDERSTANDING. PT AMBULATORY AND VSS. IV ACCESS DISCONTINUED AND ALL BELONGINGS ACCOUNTED. PT WAS DISCHARGED IN STABLE CONDITION.
--- NOTE | 2018-10-28 07:36 | Discharge Summary ---
Discharge Summary Discharge Summary _ DATE OF ADMISSION: 10/18/2018 DATE OF DISCHARGE: 10/25/2018 DISCHARGED BY: Dr Herrera REASON FOR ADMISSION: 73 years old female with past medical history of rheumatoid arthritis, osteoporosis, history of pulmonary MAC, presented to emergency department with fever ,congestion and difficulty breathing. Symptoms were ongoing for the past 2 days with gradual onset. Patient reported subjective fever and nonproductive cough. Patient denied getting flu vaccine this season. Upon evaluation patient had low-grade fever, was tachypneic , pulse oximetry was 89% on room air. Laboratory workup revealed no leukocytosis, mild anemia with hemoglobin 11.4 , hematocrit 35.2. Urinalysis revealed +3 protein but no evidence of UTI BUN 29 creatinine 1.4. Lactic acid 1.5 9. Troponin negative.EKG revealed normal sinus rhythm, no acute ischemic changes. Stable LFT. Chest x-ray demonstrated diffuse bilateral patchy interstitial and alveolar opacities. In emergency department patient received IV fluid, pancultured and started on IV antibiotics. Patient admitted for further management. CONSULTANTS: pulmonary Dr. Perez ID specialist IV Dr. High parts advisor/oncologist Dr. Mccray [facility] COURSE: Patient admitted to medical surgical floor and continued on IV fluids and empiric antibiotic. ID consult was requested. Blood cultures were negative. Influenza screen test was negative. Sputum culture was negative. Urine Legionella antigen was negative. Antibiotic regimen optimized as per ID recommendation. Patient exhibited leukopenia, which resolved prior to discharge. Per parts advisor, leukopenia was likely related to infection. Patient completed course of antibiotics and Tamiflu despite negative influenza screen test as per ID recommendation. Low-grade fever resolved. Leukopenia resolved. Patient started on steroids due to history of pulmonary MAC and discharged on short course of Medrol Dosepak . Supplemental oxygen provided as needed to keep pulse oximetry above 92%. Pulmonary toilet provided [id number] and as needed. Trial of theophylline initiated. Antitussive provided as needed. Aspiration precaution were maintained. Hemoglobin and hematocrit were closely monitored with goal to keep hemoglobin above 7, remained at baseline. Stool for occult blood was negative. CEA was within normal limits. DVT prophylaxis provided. Supportive care provided. Pain management address as needed Bowel regimen instituted. Renal parameters and electrolytes were closely monitored,, creatinine from 1.4 down to 1.3. Patient also noted to have abnormal serum protein electrophoresis with elevated beta gammaglobulin and abnormal protein bands. Patient will need outpatient follow-up with parts advisor for further workup. Patient clinically stabilized and was ready for transfer for discharge home. FINAL DIAGNOSES: Sepsis Pneumonia Probably flu History of pulmonary MAC Rheumatoid arthritis Anemia of chronic disease Osteoporosis Leukopenia-resolved Abnormal serum protein electrophoresis DISCHARGE MEDICATIONS: See Medication Reconciliation list. DISCHARGE INSTRUCTIONS: Patient was discharged home . Follow up with primary care provider in one week. Nora Hinojosa NP Oct 28, 2018 07:36
== END 2018-10-25 11:33 | disposition home or self-care (01) | DRG 871 ==
LOC: EMR 14:54 → 2E 17:51 → EDBEDREQ 20:39 → 4E 10-19 14:00
DX: A41.9 Sepsis, unspecified organism (principal); J96.00 Acute respiratory failure, unspecified whether with hypoxia or hypercapnia; J11.00 Influenza due to unidentified influenza virus with unspecified type of pneumonia; E46 Unspecified protein-calorie malnutrition; N39.0 Urinary tract infection, site not specified; Z68.1 Body mass index [BMI] 19.9 or less, adult; M06.9 Rheumatoid arthritis, unspecified; Z79.82 Long term (current) use of aspirin; D63.8 Anemia in other chronic diseases classified elsewhere; G62.9 Polyneuropathy, unspecified; M81.0 Age-related osteoporosis without current pathological fracture
CPT/HCPCS: 36415; 71045; 80048; 80053; 80069; 80202; 81003; 82044; 82164; 82270; 82378; 82550; 82553; 82607; 82728; 82746; 82784; 83540; 83550; 83605; 83615; 83690; 83735; 83880; 84100; 84165; 84484; 85007; 85025; 85044; 85060; 85610; 85651; 85730; 86334; 86710; 87040; 87070; 87205; 93005; 93970; 94640; 94664; 96365; 96367; 99285; J7620

== ENCOUNTER 2019-04-21 14:50 | Inpatient (IN) | payer MEDICARE, OTHER ==
[~2019-04-21] VITALS: Ht 154.9 cm; Wt 41.7 kg
[~2019-04-21 14:50] MED LIST changes: +ADVIL200 M2 ORAL; +ALENDRONATE SOD10 MG ORAL; +MEDROL DOSEPAK4 MG ORAL
--- NOTE | 2019-04-21 15:05 | NUR ---
ED Nurse Note: PT WALKED IN TO ER TODAY FROM HOME. AOX4. PT C/O NONPRODUCTIVE COUGH AND NASAL CONGESTION X 1 WEEK AGO. PT ALSO C/O RIGHT-SIDED CHEST PAIN WITH COUGH X 2 DAYS AGO. PT DENIES PAIN AT REST. LUNG SOUNDS CLEAR IN ALL LOBES. NO SIGNS OF RESPIRATORY DISTRESS, RETRACTIONS, OR ACCESSORY MUSCLE USE NOTED. PT ABLE TO SPEAK IN FULL SENTENCES. RR24, O2 SAT 97% ON RA.
[2019-04-21 15:07] VITALS: BP 102/70
--- NOTE | 2019-04-21 15:14 | Emergency Room Report ---
History of Present Illness General Chief Complaint: Dyspnea/Respdistress Source: Patient Present Illness HPI Disclaimer: Please note that this report is being documented using DRAGON technology. This can lead to erroneous entry secondary to incorrect interpretation by the dictating instrument. HPI: 73-year-old female with a history of rheumatoid arthritis and former pulmonary MAC as well as multiple pneumonias presents for evaluation of shortness of breath and cough. Symptoms have been present for approximately 1 week. She notes a productive cough without fevers or chills. Yesterday she began to experience some right upper chest wall pain with coughing as well as bending and twisting motions. He denies any squeezing chest pain. Denies headaches, vomiting, diarrhea, abdominal pain, dysuria, hematuria. She does note some sinus congestion and sore throat. PMH: Mycobacterium avium complex infection, pneumonia, RA PSH: See chart Allergies: Denies Social Hx: Denies tobacco, drug or alcohol use Allergies: Coded Allergies: No Known Allergies (Unverified , 10/02/15) Nursing Documentation-PMH Past Medical History: No History, Except For Hx Cardiac Problems: No Hx Cancer: No Hx Gastrointestinal Problems: No Hx Neurological Problems: Yes - OSTEOPOROSIS LOWER BACK, RA Review of Systems All Other Systems: negative except mentioned in HPI Physical Exam Vital Signs Date Time Temp Pulse Resp B/P (MAP) Pulse Ox O2 Delivery O2 Flow Rate FiO2 04/21/19 14:54 98.4 89 20 100/65 (77) 90 Room Air General: Awake and alert, no acute distress HEENT: NC/AT. EOMI. Chest Wall: Tenderness over the sternum and chest wall bilaterally without deformity or crepitus. Cardiovascular: RRR. S1 and S2 normal. No murmur appreciated Resp: Slight increase in work of breathing. Coughing during my exam. Bilateral crackles in all lung diamond. No wheezing. Abdomen: Abdomen is soft, nondistended. Nontender Skin: Intact. No abrasions, laceration or rash over the exposed skin MSK: Normal tone and bulk. Moving all extremities. No obvious deformity. Neuro: Awake and alert. Mentating appropriately. Procedures Critical Care Time Critical Care Time Total critical care time: Approximately 31 minutes Due to a high probability of clinically significant, life threatening deterioration, the patient required the highest level of preparedness to intervene emergently and I personally spent this critical care time directly and personally managing the patient. This critical care time included obtaining a history, examining the patient, pulse oximetry, ordering and reviewing studies , ordering treatments, evaluating response to treatment and updating management plan as needed, frequent reassessment and discussion with other providers as well as arranging for ultimate disposition. This critical to care time was performed to assess and manage the high probability of life-threatening deterioration that could result in multiorgan failure. This critical care time is separate from the separately billable procedures and treating other patients. Medical Decision Making Diagnostic Impression: Primary Impression: ROLANDO (acute kidney injury) Additional Impressions: Hyperkalemia Anemia CHF (congestive heart failure) ER Course 73-year-old female presents for evaluation of cough. Differential includes but is not limited to pneumonia, bronchitis, URI, pneumonitis, allergic reaction, costochondritis. Will obtain EKG, chest x-ray and broad metabolic and infectious work-up. Patient is currently stable saturating 95% on room air. Laboratory Tests Test 04/21/19 15:20 04/21/19 17:02 White Blood Count 5.0 K/UL (4.8-10.8) Red Blood Count 3.04 M/UL (4.20-5.40) L Hemoglobin 9.5 G/DL (12.0-16.0) L Hematocrit 26.9 % (37.0-47.0) L Mean Corpuscular Volume 88 FL (80-99) Mean Corpuscular Hemoglobin 31.1 PG (27.0-31.0) H Mean Corpuscular Hemoglobin Concent 35.2 G/DL (32.0-36.0) Red Cell Distribution Width 11.3 % (11.6-14.8) L Platelet Count 304 K/UL (150-450) Mean Platelet Volume 5.2 FL (6.5-10.1) L Neutrophils (%) (Auto) 77.0 % (45.0-75.0) H Lymphocytes (%) (Auto) 13.3 % (20.0-45.0) L Monocytes (%) (Auto) 8.1 % (1.0-10.0) Eosinophils (%) (Auto) 0.6 % (0.0-3.0) Basophils (%) (Auto) 1.0 % (0.0-2.0) Sodium Level 139 MMOL/L (136-145) Potassium Level 5.9 MMOL/L (3.5-5.1) H Chloride Level 107 MMOL/L (98-107) Carbon Dioxide Level 23 MMOL/L (21-32) Anion Gap 9 mmol/L (5-15) Blood Urea Nitrogen 49 mg/dL (7-18) H Creatinine 2.1 MG/DL (0.55-1.30) H Estimate Glomerular Filtration Rate mL/min (>60) Glucose Level 112 MG/DL (74-106) H Calcium Level 8.6 MG/DL (8.5-10.1) Total Bilirubin 0.4 MG/DL (0.2-1.0) Aspartate Amino Transferase (AST) 23 U/L (15-37) Alanine Aminotransferase (ALT) 12 U/L (12-78) Alkaline Phosphatase 79 U/L (46-116) Troponin I 0.000 ng/mL (0.000-0.056) Pro-B-Type Natriuretic Peptide 1738 pg/mL (0-125) H Total Protein 8.4 G/DL (6.4-8.2) H Albumin 2.7 G/DL (3.4-5.0) L Globulin 5.7 g/dL Albumin/Globulin Ratio 0.5 (1.0-2.7) L Urine Color Pale yellow Urine Appearance Clear Urine pH 6 (4.5-8.0) Urine Specific [place] 1.010 (1.005-1.035) Urine Protein 3+ (NEGATIVE) H Urine Glucose (UA) Negative (NEGATIVE) Urine Ketones Negative (NEGATIVE) Urine Blood 5+ (NEGATIVE) H Urine Nitrite Negative (NEGATIVE) Urine Bilirubin Negative (NEGATIVE) Urine Urobilinogen Normal MG/DL (0.0-1.0) Urine Leukocyte Esterase 1+ (NEGATIVE) H Urine RBC Tntc /HPF (0 - 2) H Urine WBC 2-4 /HPF (0 - 2) Urine Squamous Epithelial Cells None /LPF (NONE/OCC) Urine Bacteria Few /HPF (NONE) EKG Diagnostic Results EKG Time: 18:57 Rate: normal Rhythm: NSR Other Impression Sinus rhythm, normal axis, normal intervals. Hyperacute T waves in the precordial and inferior leads. No acute ST changes. Rhythm Strip Diag. Results Rhythm Strip Time: 18:57 EP Interpretation: yes Rate: 80s Rhythm: NSR, no PVC's, no ectopy Chest X-Ray Diagnostic Results Chest X-Ray Diagnostic Results : Chest X-Ray Ordered: Yes # of Views/Limited/Complete: 1 View Indication: Shortness of Breath EP Interpretation: Yes Interpretation: no consolidation, no pneumothorax, other - Bilateral congestion, no infiltrate, no pneumothorax Impression: Other - Bilateral vascular congestion Reevaluation Time: 16:23 Last Vital Signs Date Time Temp Pulse Resp B/P (MAP) Pulse Ox O2 Delivery O2 Flow Rate FiO2 04/21/19 15:07 98.2 74 24 102/70 97 Room Air Status: unchanged Reevaluation Impression EKG shows hyperacute T waves and labs confirm hyperkalemia. The patient was treated with IV calcium, insulin and dextrose. Chest x-ray shows bilateral vascular congestion without infiltrate or pneumothorax. Peptide is elevated consistent with CHF. Did not give diuretics given the decreased kidney function. Patient was admitted to telemetry for further treatment of hyperkalemia, ROLANDO, CHF. Disposition: ADMITTED INPATIENT Condition: Serious Eben Delcid MD Apr 21, 2019 15:14
[2019-04-21] MEDS ORDERED: Ketorolac 30mg Inj IV ONE (15:15)
[2019-04-21] MEDS ORDERED: HYDROXYCHLOROQ200 M1 PO (15:18)
--- NOTE | 2019-04-21 15:31 | NUR ---
ED Nurse Note: XRAY AT BEDSIDE.
[2019-04-21 15:46] LABS: EOSINOPHILS % (AUTO) 0.6 % (0.0-3.0); HEMATOCRIT 26.9 % (37.0-47.0); HEMOGLOBIN 9.5 G/DL (12.0-16.0); LYMPHOCYTES % (AUTO) 13.3 % (20.0-45.0); MEAN CORPUSCULAR VOLUME 88 FL (80-99); MONOCYTES % (AUTO) 8.1 % (1.0-10.0); PLATELET COUNT 304 K/UL (150-450); RED BLOOD COUNT 3.04 M/UL (4.20-5.40); RED CELL DISTRIBUTION WIDTH 11.3 % (11.6-14.8)
[2019-04-21 16:04] LABS: ALANINE AMINOTRANSFERASE 12 U/L (12-78); ALBUMIN 2.7 G/DL (3.4-5.0); ALBUMIN/GLOBULIN RATIO 0.5 (1.0-2.7); ALKALINE PHOSPHATASE 79 U/L (46-116); ANION GAP 9 mmol/L (5-15); ASPARTATE AMINO TRANSFERASE 23 U/L (15-37); BILIRUBIN,TOTAL 0.4 MG/DL (0.2-1.0); BLOOD UREA NITROGEN 49 mg/dL (7-18); CALCIUM 8.6 MG/DL (8.5-10.1); CARBON DIOXIDE 23 MMOL/L (21-32); CHLORIDE 107 MMOL/L (98-107); CREATININE 2.1 MG/DL (0.55-1.30); POTASSIUM 5.9 MMOL/L (3.5-5.1); SODIUM 139 MMOL/L (136-145)
--- NOTE | 2019-04-21 16:24 | Diagnostic Imaging Report ---
Indication: Cough Technique: One view of the chest Comparison: 10/22/2018 represents also made to prior chest CT scan of 11/08/2016 Findings: There is bilateral diffuse mostly interstitial opacity, with some airspace opacity as well. This is stable or perhaps slightly increased from the prior exam. The heart size is upper limits of normal. The pleural spaces are clear Impression: Bilateral mostly interstitial disease. This likely represents acute interstitial infiltrates versus edema. However, similarity to prior study and findings on prior CT suggests that there is some eccentric chronic component as well
[2019-04-21] MEDS ORDERED: Calcium Gluconate 1gm/10ml vial IVP ONE (17:00)
[2019-04-21] MEDS ORDERED: Insulin Human Regular 100units/ml 3ml IV ONE (17:00)
[2019-04-21 17:23] LABS: APPEARANCE,URINE CLEAR; BILIRUBIN, URINE NEGATIVE (NEGATIVE); COLOR,URINE PALE YELLOW; GLUCOSE, URINE (UA) NEGATIVE (NEGATIVE); KETONES,URINE NEGATIVE (NEGATIVE); LEUKOCYTE ESTERASE ,URINE 1+ (NEGATIVE); NITRITE,URINE NEGATIVE (NEGATIVE); PH,URINE 6 (4.5-8.0); PROTEIN,URINE 3+ (NEGATIVE); UROBILINOGEN,URINE NORMAL MG/DL (0.0-1.0)
[2019-04-21 18:34] VITALS: BP 116/63
--- NOTE | 2019-04-21 18:44 | NUR ---
ED Nurse Note: SDU CALLED FOR PT REPORT. REPORT GIVEN TO GLORIA PAZ. PT TAKEN UP TO SDU VIA GURNEY ON WINE MANAGER WITH ALL BELONGINGS ACCOMPANIED BY PRIMARY RN AND EMT.
--- NOTE | 2019-04-21 18:45 | NUR ---
NURSE NOTES: Received report over phone from GLORIA Ochoa (LEAD TANK MECHANIC). Awaiting pt arrival to SDU.
[2019-04-21 19:05] VITALS: BP 124/70
--- NOTE | 2019-04-21 19:05 | NUR ---
NURSE NOTES: Received pt from GLORIA Ochoa via hospital bed, in stable condition w/ no cardiopulmonary distress noted. Pt is AAOx4 on RA accompanied by daughter. Pt hooked to nuclear monitoring technician and VS taken and recorded. Belongings list reviewed and signed w/ FIRE FIGHTING EQUIPMENT SPECIALIST. RFA 20g IV noted. No skin alterations noted. Bed is in lowest position w/ alarm on, call light within reach, will hand off to PM RN.
--- NOTE | 2019-04-21 19:42 | NUR ---
HAND-OFF: Report given to Reji Alcocer RN. Pt in stable condition.
--- NOTE | 2019-04-21 19:43 | NUR ---
NURSE NOTES: Received pt from Irene CASTRO. Pt is awake and alert X4, with family at bedside. VSS, no acute distress with right forearm 20g IV intact and patent. No skin issued noted and the pt is ambulatory with assistance. Addendum: 04/22/19 at 0232 by Reji Alcocer RN Bed at its lowest position, call light in reach, and X2 bed rails are up.
--- NOTE | 2019-04-21 20:21 | NUR ---
NURSE NOTES: Called Lexi Cai for orders for a new admission. No call back at this time.
[2019-04-21] MEDS ORDERED: Morphine Sulfate 2mg/ml Inj(IV/IM USE ONLY) IVP PRN (20:30)
[2019-04-21] MEDS ORDERED: Miralax 17gm pkt ORAL PRN (20:30)
[2019-04-21] MEDS ORDERED: LORazepam Inj 2mg/ml 1ml IV PRN (20:30)
--- NOTE | 2019-04-21 20:30 | NUR ---
NURSE NOTES: Dr Perez put the orders in for Lexi Cai
[2019-04-21] MEDS ORDERED: Dextrose 50% 25ml Syringe IV PRN (20:45)
[2019-04-21] MEDS ORDERED: Zolpidem 5mg tab ORAL PRN (21:00)
[2019-04-22] VITALS: BP 111/57
--- NOTE | 2019-04-22 03:43 | NUR ---
NURSE NOTES: Pt denies sleeping issues. No sleep aid was given.
[2019-04-22 04:00] VITALS: BP 117/64
[2019-04-22 04:48] LABS: BASOPHILS % (AUTO) 0.5 % (0.0-2.0); EOSINOPHILS % (AUTO) 0.6 % (0.0-3.0); HEMATOCRIT 29.5 % (37.0-47.0); HEMOGLOBIN 9.8 G/DL (12.0-16.0); LYMPHOCYTES % (AUTO) 19.8 % (20.0-45.0); MEAN CORPUSCULAR VOLUME 93 FL (80-99); MONOCYTES % (AUTO) 7.9 % (1.0-10.0); NEUTROPHILS % (AUTO) 71.2 % (45.0-75.0); PLATELET COUNT 315 K/UL (150-450); RED BLOOD COUNT 3.18 M/UL (4.20-5.40); WHITE BLOOD COUNT 4.3 K/UL (4.8-10.8)
[2019-04-22 05:24] LABS: ALANINE AMINOTRANSFERASE 9 U/L (12-78); ALBUMIN 2.3 G/DL (3.4-5.0); ALBUMIN/GLOBULIN RATIO 0.4 (1.0-2.7); ALKALINE PHOSPHATASE 69 U/L (46-116); ANION GAP 10 mmol/L (5-15); ASPARTATE AMINO TRANSFERASE 21 U/L (15-37); BILIRUBIN,TOTAL 0.4 MG/DL (0.2-1.0); BLOOD UREA NITROGEN 48 mg/dL (7-18); CALCIUM 8.8 MG/DL (8.5-10.1); CARBON DIOXIDE 22 MMOL/L (21-32); CHLORIDE 108 MMOL/L (98-107); CHOLESTEROL 95 MG/DL (< 200); CREATININE 1.9 MG/DL (0.55-1.30); HDL CHOLESTEROL 28 MG/DL (40-60); POTASSIUM 5.4 MMOL/L (3.5-5.1); SODIUM 140 MMOL/L (136-145); TRIGLYCERIDES 66 MG/DL (30-150)
--- NOTE | 2019-04-22 06:00 | NUR ---
NURSE NOTES: Pt bed scale is malfunctioning. Charge nurse is aware. No weekly weight can be obtained until bed is fixed.
--- NOTE | 2019-04-22 06:27 | NUR ---
NURSE NOTES: Left a message with MD exchange regarding Pt potassium.
--- NOTE | 2019-04-22 07:29 | NUR ---
HAND-OFF: Report given to Ashleigh CASTRO.
--- NOTE | 2019-04-22 07:30 | NUR ---
NURSE NOTES: Report received from Vannesa CASTRO.Pt awake,alert sitting up on bed eating breakfast,noted no resp distress denies any Sob or coughing during the night ,no c./o chest pain,SR on the monitor,skin warm and dry ,IV sitesx2,RFA/LFA both intact,SR up x2 HOB elevated,bed lock in lowest position,will continue with plans of care.
[2019-04-22 08:00] VITALS: BP 101/56
--- NOTE | 2019-04-22 10:00 | NUR ---
NURSE NOTES: DR Herrera at bedside ,seen pt with orders noted.
--- NOTE | 2019-04-22 10:30 | NUR ---
NURSE NOTES: Dr Perez at bedside,informed re K level 5.4,no order given.
--- NOTE | 2019-04-22 10:54 | Consultation ---
History of Present Illness General Date patient seen: Apr 22, 2019 Chief Complaint: Dyspnea/Respdistress Present Illness HPI 73-year-old female with a hx of RA, pulmonary MAC, emphysema presented to ER with CC of of shortness of breath and cough for approximately 1 week. She notes a productive cough without fevers or chills. Yesterday she began to experience some right upper chest wall pain with coughing as well as bending and twisting motions. She was diagnosed to have purulent bronchitis and hyperkalemia and admitted for further management. Allergies: Coded Allergies: No Known Allergies (Unverified , 10/02/15) Medication History Scheduled Alendronate Sodium* (Fosamax*), Unknown Dose ORAL DAILY, (Reported) Aspirin* (Aspir 81*), 81 MG ORAL DAILY, (Reported) Methylprednisolone (Methylprednisolone*), 4 MG ORAL DIRECTED, (Reported) Miscellaneous Medications Calcium Carbonate (Calcium), 500 MG PO, (Reported) Hydroxychloroquine Sulfate (Hydroxychloroquine Sulfate), 200 MG PO, (Reported) Ibuprofen* (Advil*), Unknown Dose ORAL, (Reported) Patient History Healthcare decision maker N Resuscitation status Full Code Advanced Directive on File Past Medical/Surgical History Past Medical/Surgical History: (1) TEGAN (mycobacterium avium-intracellulare) (2) Emphysema lung (3) Severe protein-calorie malnutrition (4) Costochondritis Review of Systems All Other Systems: negative except mentioned in HPI Physical Exam General Appearance: cachetic, thin Lines, tubes and drains: peripheral HEENT: normocephalic, atraumatic Neck: non-tender, normal alignment, normal inspection, abnormal alignment Respiratory/Chest: chest wall non-tender, normal breath sounds Breasts: no masses Cardiovascular/Chest: normal peripheral pulses Genitourinary/Rectal: normal genital exam, normal rectal exam Extremities: normal range of motion, non-tender, normal inspection Neurologic: temple marker II-XII grossly normal Last 24 Hour Vital Signs Date Time Temp Pulse Resp B/P (MAP) Pulse Ox O2 Delivery O2 Flow Rate FiO2 04/22/19 09:00 Room Air 04/22/19 08:00 88 04/22/19 08:00 98.3 63 18 101/56 (71) 94 04/22/19 04:00 97.6 63 18 117/64 (81) 95 04/22/19 03:32 92 04/22/19 00:00 97.7 63 18 111/57 (75) 95 04/21/19 23:34 64 04/21/19 21:00 Room Air 04/21/19 19:41 Room Air 04/21/19 19:31 65 04/21/19 19:17 74 04/21/19 19:17 74 04/21/19 19:05 98.6 87 18 124/70 (88) 97 04/21/19 18:45 98.3 108 27 118/64 97 Room Air 04/21/19 18:34 98.4 112 24 116/63 98 Room Air 04/21/19 15:07 98.2 74 24 102/70 97 Room Air 04/21/19 15:07 74 24 Room Air 04/21/19 14:54 98.4 89 20 100/65 (77) 90 Room Air Laboratory Tests Test 04/21/19 15:20 04/21/19 17:02 04/22/19 03:30 White Blood Count 5.0 K/UL (4.8-10.8) 4.3 K/UL (4.8-10.8) L Red Blood Count 3.04 M/UL (4.20-5.40) L 3.18 M/UL (4.20-5.40) L Hemoglobin 9.5 G/DL (12.0-16.0) L 9.8 G/DL (12.0-16.0) L Hematocrit 26.9 % (37.0-47.0) L 29.5 % (37.0-47.0) L Mean Corpuscular Volume 88 FL (80-99) 93 FL (80-99) Mean Corpuscular Hemoglobin 31.1 PG (27.0-31.0) H 30.8 PG (27.0-31.0) Mean Corpuscular Hemoglobin Concent 35.2 G/DL (32.0-36.0) 33.2 G/DL (32.0-36.0) Red Cell Distribution Width 11.3 % (11.6-14.8) L 12.0 % (11.6-14.8) Platelet Count 304 K/UL (150-450) 315 K/UL (150-450) Mean Platelet Volume 5.2 FL (6.5-10.1) L 5.3 FL (6.5-10.1) L Neutrophils (%) (Auto) 77.0 % (45.0-75.0) H 71.2 % (45.0-75.0) Lymphocytes (%) (Auto) 13.3 % (20.0-45.0) L 19.8 % (20.0-45.0) L Monocytes (%) (Auto) 8.1 % (1.0-10.0) 7.9 % (1.0-10.0) Eosinophils (%) (Auto) 0.6 % (0.0-3.0) 0.6 % (0.0-3.0) Basophils (%) (Auto) 1.0 % (0.0-2.0) 0.5 % (0.0-2.0) Sodium Level 139 MMOL/L (136-145) 140 MMOL/L (136-145) Potassium Level 5.9 MMOL/L (3.5-5.1) H 5.4 MMOL/L (3.5-5.1) H Chloride Level 107 MMOL/L (98-107) 108 MMOL/L (98-107) H Carbon Dioxide Level 23 MMOL/L (21-32) 22 MMOL/L (21-32) Anion Gap 9 mmol/L (5-15) 10 mmol/L (5-15) Blood Urea Nitrogen 49 mg/dL (7-18) H 48 mg/dL (7-18) H Creatinine 2.1 MG/DL (0.55-1.30) H 1.9 MG/DL (0.55-1.30) H Estimat Glomerular Filtration Rate mL/min (>60) mL/min (>60) Glucose Level 112 MG/DL (74-106) H 87 MG/DL (74-106) Calcium Level 8.6 MG/DL (8.5-10.1) 8.8 MG/DL (8.5-10.1) Total Bilirubin 0.4 MG/DL (0.2-1.0) 0.4 MG/DL (0.2-1.0) Aspartate Amino Transf (AST/SGOT) 23 U/L (15-37) 21 U/L (15-37) Alanine Aminotransferase (ALT/SGPT) 12 U/L (12-78) 9 U/L (12-78) L Alkaline Phosphatase 79 U/L (46-116) 69 U/L (46-116) Troponin I 0.000 ng/mL (0.000-0.056) Pro-B-Type Natriuretic Peptide 1738 pg/mL (0-125) H Total Protein 8.4 G/DL (6.4-8.2) H 7.8 G/DL (6.4-8.2) Albumin 2.7 G/DL (3.4-5.0) L 2.3 G/DL (3.4-5.0) L Globulin 5.7 g/dL 5.5 g/dL Albumin/Globulin Ratio 0.5 (1.0-2.7) L 0.4 (1.0-2.7) L Urine Color Pale yellow Urine Appearance Clear Urine pH 6 (4.5-8.0) Urine Specific [place] 1.010 (1.005-1.035) Urine Protein 3+ (NEGATIVE) H Urine Glucose (UA) Negative (NEGATIVE) Urine Ketones Negative (NEGATIVE) Urine Blood 5+ (NEGATIVE) H Urine Nitrite Negative (NEGATIVE) Urine Bilirubin Negative (NEGATIVE) Urine Urobilinogen Normal MG/DL (0.0-1.0) Urine Leukocyte Esterase 1+ (NEGATIVE) H Urine RBC Tntc /HPF (0 - 2) H Urine WBC 2-4 /HPF (0 - 2) Urine Squamous Epithelial Cells None /LPF (NONE/OCC) Urine Bacteria Few /HPF (NONE) Triglycerides Level 66 MG/DL (30-150) Cholesterol Level 95 MG/DL (< 200) LDL Cholesterol 57 mg/dL (<100) HDL Cholesterol 28 MG/DL (40-60) L Cholesterol/HDL Ratio 3.4 (3.3-4.4) Thyroid Stimulating Hormone (TSH) 1.775 uiU/mL (0.358-3.740) Height (Feet): 5 Height (Inches): 1.00 Weight (Pounds): 92 Medications Current Medications Medications (Trade) Dose Ordered Sig/Floyd Route PRN Reason Start Time Stop Time Status Last Admin Dose Admin Acetaminophen (Tylenol) 650 mg Q4H PRN ORAL T>100.5 04/21/19 20:30 05/21/19 20:29 Ceftriaxone Sodium 1 gm/ Dextrose 55 ml @ 110 mls/hr Q24H IVPB 04/22/19 11:00 04/29/19 10:59 Dextrose (Dextrose 50%) 25 ml Q30M PRN IV Hypoglycemia 04/21/19 20:45 05/21/19 20:35 Dextrose (Dextrose 50%) 50 ml Q30M PRN IV hypoglycemia 04/21/19 20:45 05/21/19 20:44 Hydroxychloroquine Sulfate (Plaquenil) 200 mg DAILY ORAL 04/22/19 09:00 05/22/19 08:59 04/22/19 08:26 Lorazepam (Ativan 2mg/ml 1ml) 0.5 mg Q4H PRN IV For Anxiety 04/21/19 20:30 04/28/19 20:29 Morphine Sulfate (Morphine Sulfate) 1 mg Q4H PRN IVP PAIN 4-10 04/21/19 20:30 04/28/19 20:29 Ondansetron HCl (Zofran) 4 mg Q6H PRN IVP Nausea & Vomiting 04/21/19 20:30 05/21/19 20:29 Polyethylene Glycol (Miralax) 17 gm HSPRN PRN ORAL Constipation 04/21/19 20:30 05/21/19 20:29 Zolpidem Tartrate (Ambien) 5 mg HSPRN PRN ORAL Insomnia 04/21/19 21:00 04/28/19 20:59 Assessment/Plan Problem List: (1) Purulent bronchitis ICD Codes: J41.1 - Mucopurulent chronic bronchitis SNOMED: 63475912 (2) Emphysema lung ICD Codes: J43.9 - Emphysema, unspecified SNOMED: 34111650 (3) Costochondritis ICD Codes: M94.0 - Chondrocostal junction syndrome [Tietze] SNOMED: 37435145 (4) Severe protein-calorie malnutrition ICD Codes: E43 - Unspecified severe protein-calorie malnutrition SNOMED: 489928072, 360674384, 222948142 Assessment/Plan: check sputum iv abx respiratory treatment antitussives titrate fio2 to sat of 92% Stephan Perez MD Apr 22, 2019 10:54
[2019-04-22] MEDS ORDERED: cefTRIAXone 1 GM in D5W 55 ML IVPB SCH (11:00)
--- NOTE | 2019-04-22 11:00 | NUR ---
NURSE NOTES: Pt ambulates to bathroom with steady gait ,had BM to soft brown stools.
--- NOTE | 2019-04-22 11:02 | NUR ---
RD ASSESSMENT & RECOMMENDATIONS SEE CARE ACTIVITY FOR COMPLETE ASSESSMENT DAILY ESTIMATED NEEDS: Needs based on Underweight/ 42kg 30-35 kcals/kg 6793-8682 total kcals 1-1.2 g protein/kg 42-50 g total protein 25-30 mL/kg 5493-0527 total fluid mLs NUTRITION DIAGNOSIS: (1) Increased kcal/pro needs R/T underweight status as evidenced by pt @ 93% IBW, underweight BMI per guidelines. (2) Altered nutrition related lab values r/t acute kidney injury as evidenced by elev K (5.4) w/ elev BUN and creat. CURRENT DIET:REGULAR PO DIET RECOMMENDATIONS: LOW NA DIET (texture as tolerated) ADDITIONAL RECOMMENDATIONS: * Calibrated bedscale wt, weekly weights given underweight status * Monitor PO intake closely-> noted good intake need for snacks or supplement .* Trend K, need for Low K diet
[2019-04-22 11:24] LABS: LACTATE DEHYDROGENASE 161 U/L (81-234)
[2019-04-22 11:52] LABS: % IRON SATURATION 23 % (15-50); IRON 40 ug/dL (50-175); TOTAL IRON BINDING CAPACITY 174 ug/dL (250-450)
[2019-04-22 12:00] VITALS: BP 102/59
[2019-04-22 16:00] VITALS: BP 102/56
--- NOTE | 2019-04-22 16:40 | NUR ---
NURSE NOTES: Pt stable,no signs of sob presented,family member at bedside.
[2019-04-22] MEDS ORDERED: Tubing IV Secondary IV ONE (17:03)
[2019-04-22] MEDS ORDERED: NS 275ml ONE (17:03)
--- NOTE | 2019-04-22 18:42 | NUR ---
NURSE NOTES: Pt and family informed re transfer to Telemetry,room 209,verbalized understanding.
--- NOTE | 2019-04-22 19:05 | NUR ---
NURSE NOTES: Pt report received from Ashleigh Malhotra RN MARICARMEN. pt is alert and oriented times 4, able to follow commands. pt appears to be resting comfortable in bed with no distress noted. pt engine monitor showing NSR with no abnormalities noted. pt is on room air, able to sat at 99%, no distress noted. bed low, locked, armed, bed rails up times 3, call light within reach. will continue plan of care.
--- NOTE | 2019-04-22 19:16 | NUR ---
HAND-OFF: Report given to Fidencio Beltrán RN.
--- NOTE | 2019-04-22 19:45 | History and Physical Report ---
DATE OF ADMISSION: 04/21/2019 DATE AND TIME SEEN: 04/22/2019 at 10:00 a.m. CONSULTANTS: 1. Stephan Perez M.D. 2. Isma Unger M.D. CHIEF COMPLAINT: Cough, shortness of breath. BRIEF HISTORY: This 73-year-old female, who lives at home, complaint of cough and shortness of breath x1 week getting worse, came to [place], diagnosed as above, [email or web address] for further care. Currently, , slightly coughing, no complaint. REVIEW OF SYSTEMS: No chest pain. Slight short of breath. No nausea, vomiting, or diarrhea. PAST MEDICAL HISTORY: CHF, ROLANDO. PAST SURGICAL HISTORY: None. ALLERGIES: Denies. MEDICATIONS: Include hydrocodone, zolpidem, Tylenol, morphine, polyethylene glycol, Zofran, lorazepam, insulin. SOCIAL HISTORY: No smoking. No alcohol. No intravenous drug abuse. FAMILY HISTORY: Noncontributory. PHYSICAL EXAMINATION: GENERAL: Calm in bed, slight coughing, oriented x3, in no acute distress. VITAL SIGNS: Show temperature is 98 degrees, pulse 63, respirations 18, blood pressure 101/56. CARDIOVASCULAR: No murmur. LUNGS: Distant and clear. ABDOMEN: Bowel sounds positive. EXTREMITIES: No cyanosis, clubbing, or edema. NEUROLOGIC: The patient moves all extremities, slightly weak. LABORATORY AND DIAGNOSTIC DATA: Labs at this time show white count 4.3, H and H 9.0 and 29, otherwise CBC is normal. BMP shows potassium 5.4, chloride 108, BUN/creatinine 40/1.9. Otherwise glucose is 87. Urinalysis show 1+ leukocyte esterase. ASSESSMENT: 1. Cough. 2. Shortness of breath. 3. Hyperkalemia. 4. Anemia. 5. CHF. 6. ROLANDO. 7. Urinary tract infection. PLAN: 1. O2 and pulmonary treatment. 2. Antibiotics will be ordered. 3. Blood pressure control. 4. Dietary followup. 5. CBC, BMP in the morning. Isaak Herrera D.O. DR: ESSIE JOB#: [id number] CC:
[2019-04-22 20:00] VITALS: BP 122/65
--- NOTE | 2019-04-22 20:07 | NUR ---
NURSE NOTES: Messaged MD Helton in regards to pt lab values, such as Potassium 5.4, WBC 4.3, BUN 48, and creat 1.9. awaiting new orders.
--- NOTE | 2019-04-22 20:10 | NUR ---
NURSE NOTES: called and left a message to MD Perez in regards to pt lab values, such as Potassium 5.4, WBC 4.3, BUN 48, and creat 1.9. awaiting new orders.
[2019-04-23] VITALS (7 sets, daily range): BP systolic 102–115; BP diastolic 60–69
[2019-04-23 05:11] LABS: BASOPHILS % (AUTO) 0.6 % (0.0-2.0); EOSINOPHILS % (AUTO) 0.8 % (0.0-3.0); HEMATOCRIT 30.7 % (37.0-47.0); HEMOGLOBIN 10.2 G/DL (12.0-16.0); LYMPHOCYTES % (AUTO) 18.6 % (20.0-45.0); MEAN CORPUSCULAR VOLUME 93 FL (80-99); MONOCYTES % (AUTO) 9.8 % (1.0-10.0); NEUTROPHILS % (AUTO) 70.1 % (45.0-75.0); PLATELET COUNT 318 K/UL (150-450); RED BLOOD COUNT 3.31 M/UL (4.20-5.40); RED CELL DISTRIBUTION WIDTH 11.8 % (11.6-14.8); WHITE BLOOD COUNT 5.3 K/UL (4.8-10.8)
[2019-04-23 05:48] LABS: ANION GAP 9 mmol/L (5-15); BLOOD UREA NITROGEN 40 mg/dL (7-18); CALCIUM 8.8 MG/DL (8.5-10.1); CARBON DIOXIDE 23 MMOL/L (21-32); CHLORIDE 108 MMOL/L (98-107); CREATININE 1.8 MG/DL (0.55-1.30); POTASSIUM 4.9 MMOL/L (3.5-5.1); SODIUM 140 MMOL/L (136-145)
--- NOTE | 2019-04-23 06:30 | NUR ---
HAND-OFF: Report given to Gautam CASTROresearch scientist. pt remains in stable condition. pt transfered with all belongings.
[2019-04-23] MEDS ORDERED: Morphine Sulfate 2mg/ml Inj(IV/IM USE ONLY) IVP PRN ×4 (06:56→14:26)
[2019-04-23] MEDS ORDERED: LORazepam Inj 2mg/ml 1ml IV PRN ×4 (06:56→14:26)
[2019-04-23] MEDS ORDERED: Miralax 17gm pkt ORAL PRN ×4 (06:58→20:30)
[2019-04-23] MEDS ORDERED: Zolpidem 5mg tab ORAL PRN ×4 (06:58→21:00)
--- NOTE | 2019-04-23 07:41 | NUR ---
NURSE NOTES: Received report from GLORIA Florez. Pt is laying in bed sleeping. No distress noted. Bed is in lowest position, side rails up X2, and call light is within reach. Will continue to monitor.
--- NOTE | 2019-04-23 10:22 | Consultation ---
Consult Note Consult Note Dr Herrera asked me to eval this patient for elevated SCr and high K patient bengali speaker examined data reviewed ER: HPI: 73-year-old female with a history of rheumatoid arthritis and former pulmonary MAC as well as multiple pneumonias presents for evaluation of shortness of breath and cough. Symptoms have been present for approximately 1 week. She notes a productive cough without fevers or chills. Yesterday she began to experience some right upper chest wall pain with coughing as well as bending and twisting motions. He denies any squeezing chest pain. Denies headaches, vomiting, diarrhea, abdominal pain, dysuria, hematuria. She does note some sinus congestion and sore throat. PMH: Mycobacterium avium complex infection, pneumonia, RA Allergies: Denies Past Medical History: No History, Except For Hx Neurological Problems: Yes - OSTEOPOROSIS LOWER BACK, RA Assessment/Plan Patient presents with respiratory Sxs: Bronchitis, h/o Emphysema Renal failure Cr 2.1 down to 1.8 , still up for her body mass High K resolving Sever malnutrition - HypoAlbuminemia dehydration h/o RA Hydrate gastric support monitor renal parameters urine studies urine c/s Isma Unger MD Apr 23, 2019 10:22
[2019-04-23] MEDS ORDERED: D5 1/2NS 1,000 ML IV SCH (10:30)
--- NOTE | 2019-04-23 10:30 | NUR ---
PT EVALUATION NOTE Patient seen for initial evaluation, see complete evaluation for details. Patient is independent/supervised with all functional mobility without an assistive device. Skilled inpatient PT intervention not indicated, patient discharged from PT. Patient is cleared to ambulate with nursing supervision, Breanna CASTRO notified. Addendum: 04/23/19 at 1246 by MARILIN RINALDI PT Amended: Links added.
--- NOTE | 2019-04-23 10:34 | NUR ---
CASE MANAGEMENT: INITIAL REVIEW 73 YO M PRESENTED FROM HOME CC: DYSPNEA. PMHx: RA. PNA. SI:ROLANDO. HYPERKALEMIA. T 98.4 HR 89 RR 20 B/P 100/65 SATS 90% ON RA K 5.9 BUN 49 CR 2.1 GLU 112 BNP 1738 IS: TORADOL IV X1 PATIENT ADMITTED TO TELE 04/21/2019 @ 5773 DCP: PATIENT TO BE DISCHARGED TO HOME ONCE MEDICALLY CLEARED. PLAN OF CARE: SPUTUM CX IV ANTIBx Addendum: 04/23/19 at 1112 by Karuna Granados CM INTERQUAL MET
[2019-04-23] MEDS ORDERED: cefTRIAXone 1 GM in D5W 55 ML IVPB SCH ×6 (11:00)
--- NOTE | 2019-04-23 11:02 | Pulmonology Progress Note ---
Assessment/Plan Problems: (1) Purulent bronchitis (2) Anemia (3) Emphysema lung (4) Costochondritis (5) Severe protein-calorie malnutrition (6) ROLANDO (acute kidney injury) Assessment/Plan respiratory treatment check sputum continue abx titrate fio2 to sat of 92% renal w/u dvt prophylaxis symptomatic treatment might go to med/surg. Subjective ROS Limited/Unobtainable: No Constitutional: Reports: no symptoms HEENT: Repors: no symptoms Allergies: Coded Allergies: No Known Allergies (Unverified , 10/02/15) Objective Last 24 Hour Vital Signs Date Time Temp Pulse Resp B/P (MAP) Pulse Ox O2 Delivery O2 Flow Rate FiO2 04/23/19 09:00 Room Air 04/23/19 08:00 97.9 71 21 107/61 (76) 92 04/23/19 04:00 98.5 68 18 107/62 (77) 99 04/23/19 03:24 63 04/23/19 00:00 98.7 71 18 112/67 (82) 96 04/23/19 00:00 66 04/22/19 21:00 Room Air 04/22/19 20:00 79 04/22/19 20:00 98.5 69 18 122/65 (84) 94 04/22/19 16:00 98.8 74 18 102/56 (71) 94 04/22/19 16:00 76 04/22/19 12:00 98.4 72 18 102/59 (73) 94 04/22/19 12:00 68 Intake and Output 04/22/19 04/23/19 18:59 06:59 Intake Total 600 ml Balance 600 ml Intake Oral 600 ml # Voids 3 # Bowel Movements 2 General Appearance: cachetic HEENT: normocephalic, atraumatic Respiratory/Chest: chest wall non-tender, lungs clear Breasts: no masses Cardiovascular: normal peripheral pulses, normal rate Abdomen: normal bowel sounds, soft, non tender Microbiology Date/Time Source Procedure Growth Status 04/21/19 15:25 Blood Blood Culture - Preliminary NO GROWTH AFTER 24 HOURS Resulted 04/21/19 15:10 Blood Blood Culture - Preliminary NO GROWTH AFTER 24 HOURS Resulted Laboratory Tests 04/23/19 04:35: White Blood Count 5.3, Red Blood Count 3.31L, Hemoglobin 10.2L, Hematocrit 30.7L , Mean Corpuscular Volume 93, Mean Corpuscular Hemoglobin 30.7, Mean Corpuscular Hemoglobin Concent 33.1, Red Cell Distribution Width 11.8, Platelet Count 318, Mean Platelet Volume 5.4L, Neutrophils (%) (Auto) 70.1, Lymphocytes ( %) (Auto) 18.6L, Monocytes (%) (Auto) 9.8, Eosinophils (%) (Auto) 0.8, Basophils (%) (Auto) 0.6, Sodium Level 140, Potassium Level 4.9, Chloride Level 108H, Carbon Dioxide Level 23, Anion Gap 9, Blood Urea Nitrogen 40H, Creatinine 1.8H, Estimat Glomerular Filtration Rate , Glucose Level 101, Calcium Level 8.8 , Ferritin [Pending] Current Medications Medications (Trade) Dose Ordered Sig/Floyd Route PRN Reason Start Time Stop Time Status Last Admin Dose Admin Acetaminophen (Tylenol) 650 mg Q4H PRN ORAL T>100.5 04/23/19 06:51 05/21/19 06:50 Ceftriaxone Sodium 1 gm/ Dextrose 55 ml @ 110 mls/hr Q24H IVPB 04/23/19 11:00 04/29/19 10:59 04/23/19 10:48 Dextrose (Dextrose 50%) 25 ml Q30M PRN IV Hypoglycemia 04/23/19 06:53 05/21/19 06:52 Dextrose (Dextrose 50%) 50 ml Q30M PRN IV hypoglycemia 04/23/19 06:53 05/21/19 06:52 Dextrose/Sodium Chloride 1,000 ml @ 100 mls/hr Q10H IV 04/23/19 10:30 04/23/19 20:29 04/23/19 10:48 Docusate Sodium (Colace) 100 mg TWICE A DAY ORAL 04/23/19 18:00 05/23/19 17:59 Hydroxychloroquine Sulfate (Plaquenil) 200 mg DAILY ORAL 04/23/19 09:00 05/22/19 08:59 04/23/19 09:20 Lorazepam (Ativan 2mg/ml 1ml) 0.5 mg Q4H PRN IV For Anxiety 04/23/19 06:56 04/28/19 06:55 Morphine Sulfate (Morphine Sulfate) 1 mg Q4H PRN IVP PAIN 4-10 04/23/19 06:56 04/28/19 06:55 Ondansetron HCl (Zofran) 4 mg Q6H PRN IVP Nausea & Vomiting 04/23/19 06:57 05/21/19 06:56 Pantoprazole (Protonix) 40 mg DAILY ORAL 04/23/19 10:30 05/23/19 10:29 04/23/19 10:47 Polyethylene Glycol (Miralax) 17 gm HSPRN PRN ORAL Constipation 04/23/19 06:58 05/21/19 06:57 Zolpidem Tartrate (Ambien) 5 mg HSPRN PRN ORAL Insomnia 04/23/19 06:58 04/28/19 06:57 Stephan Perez MD Apr 23, 2019 11:02
--- NOTE | 2019-04-23 12:45 | Diagnostic Imaging Report ---
APPROVED REPORT CPT Code: 51963 Present Symptoms Comments: Back Pain BILATERAL: Imaging reveals a patent deep venous system bilaterally. There is no evidence of thrombus within the common femoral, superficial femoral, popliteal or tibial segments. The greater saphenous veins are within normal limits. Doppler indicates normal spontaneous flow within these segments.
--- NOTE | 2019-04-23 14:15 | General Progress Note ---
Assessment/Plan Problem List: (1) SOB (shortness of breath) ICD Codes: R06.02 - Shortness of breath SNOMED: 312899005 (2) Cough ICD Codes: R05 - Cough SNOMED: 12094165 (3) Anemia ICD Codes: D64.9 - Anemia, unspecified SNOMED: 823348112 (4) CHF (congestive heart failure) ICD Codes: I50.9 - Heart failure, unspecified SNOMED: 97323419 (5) ROLANDO (acute kidney injury) ICD Codes: N17.9 - Acute kidney failure, unspecified SNOMED: 9123690, 37498439 Status: stable, progressing Assessment/Plan: o2 pulm tx abx pt diet cbc bmp am Subjective Constitutional: Reports: weakness Allergies: Coded Allergies: No Known Allergies (Unverified , 10/02/15) All Systems: reviewed and negative except above Subjective sl cough in bed Objective Last 24 Hour Vital Signs Date Time Temp Pulse Resp B/P (MAP) Pulse Ox O2 Delivery O2 Flow Rate FiO2 04/23/19 12:00 97.8 70 21 115/68 (84) 95 04/23/19 12:00 67 04/23/19 09:00 Room Air 04/23/19 08:00 97.9 71 21 107/61 (76) 92 04/23/19 08:00 65 04/23/19 04:00 98.5 68 18 107/62 (77) 99 04/23/19 03:24 63 04/23/19 00:00 98.7 71 18 112/67 (82) 96 04/23/19 00:00 66 04/22/19 21:00 Room Air 04/22/19 20:00 79 04/22/19 20:00 98.5 69 18 122/65 (84) 94 04/22/19 16:00 98.8 74 18 102/56 (71) 94 04/22/19 16:00 76 Intake and Output 04/22/19 04/23/19 19:00 07:00 Intake Total 600 ml Balance 600 ml Intake Oral 600 ml # Voids 3 # Bowel Movements 2 Laboratory Tests 04/23/19 04:35: White Blood Count 5.3, Red Blood Count 3.31L, Hemoglobin 10.2L, Hematocrit 30.7L , Mean Corpuscular Volume 93, Mean Corpuscular Hemoglobin 30.7, Mean Corpuscular Hemoglobin Concent 33.1, Red Cell Distribution Width 11.8, Platelet Count 318, Mean Platelet Volume 5.4L, Neutrophils (%) (Auto) 70.1, Lymphocytes ( %) (Auto) 18.6L, Monocytes (%) (Auto) 9.8, Eosinophils (%) (Auto) 0.8, Basophils (%) (Auto) 0.6, Sodium Level 140, Potassium Level 4.9, Chloride Level 108H, Carbon Dioxide Level 23, Anion Gap 9, Blood Urea Nitrogen 40H, Creatinine 1.8H, Estimat Glomerular Filtration Rate , Glucose Level 101, Calcium Level 8.8 , Ferritin 116 Height (Feet): 5 Height (Inches): 1.00 Weight (Pounds): 92 General Appearance: lethargic EENT: normal ENT inspection Neck: normal alignment Cardiovascular: normal peripheral pulses, normal rate, regular rhythm Respiratory/Chest: chest wall non-tender, lungs clear, normal breath sounds Abdomen: normal bowel sounds, non tender, soft Extremities: normal inspection Edema: no edema noted Arm (L), no edema noted Arm (R), no edema noted Leg (L), no edema noted Leg (R), no edema noted Pedal (L), no edema noted Pedal (R), no edema noted Generalized Neurologic: responsive, motor weakness Skin: normal pigmentation, warm/dry Isaak Herrera DO Apr 23, 2019 14:15
[2019-04-23 14:29] LABS: APPEARANCE,URINE CLEAR; BILIRUBIN, URINE NEGATIVE (NEGATIVE); COLOR,URINE PALE YELLOW; GLUCOSE, URINE (UA) NEGATIVE (NEGATIVE); KETONES,URINE NEGATIVE (NEGATIVE); LEUKOCYTE ESTERASE ,URINE 1+ (NEGATIVE); NITRITE,URINE NEGATIVE (NEGATIVE); PH,URINE 7 (4.5-8.0); PROTEIN,URINE 1+ (NEGATIVE); UROBILINOGEN,URINE NORMAL MG/DL (0.0-1.0)
[2019-04-23] MEDS: D5 1/2NS 1,000 ML IV SCH ×2 (14:30→15:18)
--- NOTE | 2019-04-23 14:41 | NUR ---
TRANSFER TO FLOOR: Patient transferred to 3E, per Dr. Perez. Report given to Flor. Wills and anuja for. Pt stable at time of transfer
--- NOTE | 2019-04-23 14:45 | NUR ---
NURSE NOTES: REC'D FROM 2E A 73 YR OLD FEMALE WITH DX OF ACUTE KIDNEY INJURY. AWAKE/ALERT. AMHARIC SPEAKING. NO C/O PAIN. IN NO DISTRESS.
--- NOTE | 2019-04-23 15:16 | Cardiology Report ---
APPROVED REPORT EKG Measurement Heart [id number] Normal sinus rhythm Normal ECG
[2019-04-23] MEDS: Docusate 100mg cap ORAL SCH (17:50)
[2019-04-23] MEDS ORDERED: Docusate 100mg cap ORAL SCH (18:00)
--- NOTE | 2019-04-23 19:00 | NUR ---
NURSE NOTES: CONDITION STABLE. IN NO DISTRESS.
--- NOTE | 2019-04-23 19:34 | NUR ---
HAND-OFF: Report given to Erickson REGAN RN.
--- NOTE | 2019-04-23 19:35 | NUR ---
NURSE NOTES: Received report from Ирина Ortez RN. Rounds done. Patient alert, oriented. Mongolian speaking. Family at bedside. Denies any pain, or other discomfort at this time. IV intact, patent RFA, will discontinue IVF after this liter per MD orders. Bed in low position, locked, side rails up x2, call light within reach. No distress noted, will continue to monitor.
[2019-04-24] VITALS: BP 101/60
[2019-04-24 04:00] VITALS: BP 109/61
[2019-04-24 06:36] LABS: BASOPHILS % (AUTO) 0.7 % (0.0-2.0); EOSINOPHILS % (AUTO) 1.5 % (0.0-3.0); HEMATOCRIT 30.5 % (37.0-47.0); HEMOGLOBIN 10.1 G/DL (12.0-16.0); LYMPHOCYTES % (AUTO) 20.7 % (20.0-45.0); MEAN CORPUSCULAR VOLUME 93 FL (80-99); MONOCYTES % (AUTO) 8.9 % (1.0-10.0); NEUTROPHILS % (AUTO) 68.2 % (45.0-75.0); PLATELET COUNT 330 K/UL (150-450); RED BLOOD COUNT 3.27 M/UL (4.20-5.40); RED CELL DISTRIBUTION WIDTH 11.7 % (11.6-14.8); WHITE BLOOD COUNT 5.3 K/UL (4.8-10.8)
[2019-04-24 06:40] LABS: ALANINE AMINOTRANSFERASE 11 U/L (12-78); ALBUMIN 2.4 G/DL (3.4-5.0); ALBUMIN/GLOBULIN RATIO 0.4 (1.0-2.7); ALKALINE PHOSPHATASE 69 U/L (46-116); ANION GAP 11 mmol/L (5-15); ASPARTATE AMINO TRANSFERASE 19 U/L (15-37); BILIRUBIN,TOTAL 0.3 MG/DL (0.2-1.0); BLOOD UREA NITROGEN 34 mg/dL (7-18); CALCIUM 8.7 MG/DL (8.5-10.1); CARBON DIOXIDE 22 MMOL/L (21-32); CHLORIDE 108 MMOL/L (98-107); CHOLESTEROL 114 MG/DL (< 200); CREATININE 1.8 MG/DL (0.55-1.30); GAMMA GLUTAMYL TRANSPEPTIDASE 11 U/L (5-85); HDL CHOLESTEROL 29 MG/DL (40-60); PHOSPHORUS 3.8 MG/DL (2.5-4.9); POTASSIUM 4.5 MMOL/L (3.5-5.1); SODIUM 141 MMOL/L (136-145); TRIGLYCERIDES 108 MG/DL (30-150)
--- NOTE | 2019-04-24 07:30 | NUR ---
NURSE NOTES: Patient is in bed awake and able to verbalize needs. Stable. Denies pain or SOB. Patient encouraged to use call light for assistance, verbalized understanding. Patient is in bed in locked and lowest position with call light within reach. Will continue to monitor.
--- NOTE | 2019-04-24 07:47 | NUR ---
HAND-OFF: Report given to GLORIA Alcala. Rounds done. no distress noted.
--- NOTE | 2019-04-24 07:51 | Nephrology Progress Note ---
Assessment/Plan Problem List: (1) Renal failure (ARF), acute on chronic (2) Severe protein-calorie malnutrition (3) Purulent bronchitis (4) Dehydration Assessment Patient presents with respiratory Sxs: Bronchitis, h/o Emphysema Renal failure Cr 2.1 down to 1.8 , still up for her body mass High K resolving Sever malnutrition - HypoAlbuminemia dehydration h/o RA Plan Hydrate gastric support monitor renal parameters urine studies urine c/s Subjective ROS Limited/Unobtainable: No Constitutional: Reports: malaise Objective Objective Last 24 Hour Vital Signs Date Time Temp Pulse Resp B/P (MAP) Pulse Ox O2 Delivery O2 Flow Rate FiO2 04/24/19 04:00 99.0 79 18 109/61 (77) 94 04/24/19 00:00 99.0 81 18 101/60 (74) 95 04/23/19 21:00 Room Air 04/23/19 20:00 99.5 83 18 109/65 (80) 95 04/23/19 16:00 99.3 73 20 112/69 (83) 93 04/23/19 14:45 98.8 81 20 102/60 (74) 93 04/23/19 12:00 97.8 70 21 115/68 (84) 95 04/23/19 12:00 67 04/23/19 09:00 Room Air 04/23/19 08:00 97.9 71 21 107/61 (76) 92 04/23/19 08:00 65 Intake and Output 04/23/19 04/24/19 19:00 07:00 Intake Total 700 ml 840 ml Balance 700 ml 840 ml Intake Oral 300 ml 240 ml IV Total 400 ml 600 ml # Voids 1 2 # Bowel Movements 1 Current Medications Medications (Trade) Dose Ordered Sig/Folyd Route PRN Reason Start Time Stop Time Status Last Admin Dose Admin Acetaminophen (Tylenol) 650 mg Q4H PRN ORAL T>100.5 04/23/19 14:25 05/23/19 14:24 Ceftriaxone Sodium 1 gm/ Dextrose 55 ml @ 110 mls/hr Q24H IVPB 04/24/19 11:00 04/29/19 10:59 Dextrose (Dextrose 50%) 25 ml Q30M PRN IV Hypoglycemia 04/23/19 14:30 05/21/19 06:52 Dextrose (Dextrose 50%) 50 ml Q30M PRN IV hypoglycemia 04/23/19 14:30 05/21/19 06:52 Docusate Sodium (Colace) 100 mg TWICE A DAY ORAL 04/23/19 18:00 05/23/19 17:59 Hydroxychloroquine Sulfate (Plaquenil) 200 mg DAILY ORAL 04/24/19 09:00 05/22/19 08:59 Lorazepam (Ativan 2mg/ml 1ml) 0.5 mg Q4H PRN IV For Anxiety 04/23/19 14:26 04/30/19 14:25 Morphine Sulfate (Morphine Sulfate) 1 mg Q4H PRN IVP PAIN 4-10 04/23/19 14:26 04/30/19 14:25 Ondansetron HCl (Zofran) 4 mg Q6H PRN IVP Nausea & Vomiting 04/23/19 14:26 05/23/19 14:25 Pantoprazole (Protonix) 40 mg DAILY ORAL 04/24/19 09:00 05/23/19 10:29 Polyethylene Glycol (Miralax) 17 gm HSPRN PRN ORAL Constipation 04/23/19 14:26 05/23/19 14:25 Zolpidem Tartrate (Ambien) 5 mg HSPRN PRN ORAL Insomnia 04/23/19 14:27 04/30/19 14:26 Laboratory Tests 04/23/19 13:30: Stool Occult Blood [Pending] 04/23/19 13:44: Urine Color Pale yellow, Urine Appearance Clear, Urine pH 7, Urine Specific [place] 1.005, Urine Protein 1+H, Urine Glucose (UA) Negative, Urine Ketones Negative, Urine Blood 5+H, Urine Nitrite Negative, Urine Bilirubin Negative, Urine Urobilinogen Normal, Urine Leukocyte Esterase 1+H, Urine RBC 5-10H, Urine WBC 2-4, Urine Squamous Epithelial Cells Occasional, Urine Bacteria Occasional, Urine Random Sodium 44 04/24/19 05:10: White Blood Count 5.3, Red Blood Count 3.27L, Hemoglobin 10.1L, Hematocrit 30.5L , Mean Corpuscular Volume 93, Mean Corpuscular Hemoglobin 30.8, Mean Corpuscular Hemoglobin Concent 33.0, Red Cell Distribution Width 11.7, Platelet Count 330, Mean Platelet Volume 5.4L, Neutrophils (%) (Auto) 68.2, Lymphocytes ( %) (Auto) 20.7, Monocytes (%) (Auto) 8.9, Eosinophils (%) (Auto) 1.5, Basophils (%) (Auto) 0.7, Erythrocyte Sedimentation Rate [Pending], Sodium Level 141, Potassium Level 4.5, Chloride Level 108H, Carbon Dioxide Level 22, Anion Gap 11 , Blood Urea Nitrogen 34H, Creatinine 1.8H, Estimat Glomerular Filtration Rate , Glucose Level 91, Hemoglobin A1c 6.2H, Uric Acid 6.3, Calcium Level 8.7, Phosphorus Level 3.8, Magnesium Level 2.0, Total Bilirubin 0.3, Gamma Glutamyl Transpeptidase 11, Aspartate Amino Transf (AST/SGOT) 19, Alanine Aminotransferase (ALT/SGPT) 11L, Alkaline Phosphatase 69, C-Reactive Protein, Quantitative 7.2H, Pro-B-Type Natriuretic Peptide 780H, Total Protein 8.2, Albumin 2.4L, Globulin 5.8, Albumin/Globulin Ratio 0.4L, Triglycerides Level 108 , Cholesterol Level 114, LDL Cholesterol 70, HDL Cholesterol 29L, Cholesterol/ HDL Ratio 3.9, Free Thyroxine 1.24, Free Triiodothyronine 1.7L, Rheumatoid Factor Screen [Pending] Height (Feet): 5 Height (Inches): 1.00 Weight (Pounds): 92 General Appearance: no apparent distress Objective no change Isma Unger MD Apr 24, 2019 07:51
[2019-04-24 08:00] VITALS: BP 106/63
[2019-04-24] MEDS ORDERED: D5 1/2NS 1,000 ML IV SCH (08:00)
[2019-04-24] MEDS: Docusate 100mg cap ORAL SCH ×2 (08:27→17:55)
--- NOTE | 2019-04-24 09:38 | General Progress Note ---
Assessment/Plan Problem List: (1) SOB (shortness of breath) ICD Codes: R06.02 - Shortness of breath SNOMED: 682441858 (2) Cough ICD Codes: R05 - Cough SNOMED: 91847227 (3) Anemia ICD Codes: D64.9 - Anemia, unspecified SNOMED: 738798872 (4) CHF (congestive heart failure) ICD Codes: I50.9 - Heart failure, unspecified SNOMED: 76412503 (5) ROLANDO (acute kidney injury) ICD Codes: N17.9 - Acute kidney failure, unspecified SNOMED: 7432598, 76247649 Status: stable, progressing Assessment/Plan: o2 pulm tx abx pt diet dc w hh if clear Subjective Constitutional: Reports: weakness Allergies: Coded Allergies: No Known Allergies (Unverified , 10/02/15) All Systems: reviewed and negative except above Subjective sl cough in bed Objective Last 24 Hour Vital Signs Date Time Temp Pulse Resp B/P (MAP) Pulse Ox O2 Delivery O2 Flow Rate FiO2 04/24/19 04:00 99.0 79 18 109/61 (77) 94 04/24/19 00:00 99.0 81 18 101/60 (74) 95 04/23/19 21:00 Room Air 04/23/19 20:00 99.5 83 18 109/65 (80) 95 04/23/19 16:00 99.3 73 20 112/69 (83) 93 04/23/19 14:45 98.8 81 20 102/60 (74) 93 04/23/19 12:00 97.8 70 21 115/68 (84) 95 04/23/19 12:00 67 Intake and Output 04/23/19 04/24/19 19:00 07:00 Intake Total 700 ml 840 ml Balance 700 ml 840 ml Intake Oral 300 ml 240 ml IV Total 400 ml 600 ml # Voids 1 2 # Bowel Movements 1 Laboratory Tests 04/23/19 13:30: Stool Occult Blood [Pending] 04/23/19 13:44: Urine Color Pale yellow, Urine Appearance Clear, Urine pH 7, Urine Specific [place] 1.005, Urine Protein 1+H, Urine Glucose (UA) Negative, Urine Ketones Negative, Urine Blood 5+H, Urine Nitrite Negative, Urine Bilirubin Negative, Urine Urobilinogen Normal, Urine Leukocyte Esterase 1+H, Urine RBC 5-10H, Urine WBC 2-4, Urine Squamous Epithelial Cells Occasional, Urine Bacteria Occasional, Urine Random Sodium 44 04/24/19 05:10: White Blood Count 5.3, Red Blood Count 3.27L, Hemoglobin 10.1L, Hematocrit 30.5L , Mean Corpuscular Volume 93, Mean Corpuscular Hemoglobin 30.8, Mean Corpuscular Hemoglobin Concent 33.0, Red Cell Distribution Width 11.7, Platelet Count 330, Mean Platelet Volume 5.4L, Neutrophils (%) (Auto) 68.2, Lymphocytes ( %) (Auto) 20.7, Monocytes (%) (Auto) 8.9, Eosinophils (%) (Auto) 1.5, Basophils (%) (Auto) 0.7, Erythrocyte Sedimentation Rate 103H, Sodium Level 141, Potassium Level 4.5, Chloride Level 108H, Carbon Dioxide Level 22, Anion Gap 11 , Blood Urea Nitrogen 34H, Creatinine 1.8H, Estimat Glomerular Filtration Rate , Glucose Level 91, Hemoglobin A1c 6.2H, Uric Acid 6.3, Calcium Level 8.7, Phosphorus Level 3.8, Magnesium Level 2.0, Total Bilirubin 0.3, Gamma Glutamyl Transpeptidase 11, Aspartate Amino Transf (AST/SGOT) 19, Alanine Aminotransferase (ALT/SGPT) 11L, Alkaline Phosphatase 69, C-Reactive Protein, Quantitative 7.2H, Pro-B-Type Natriuretic Peptide 780H, Total Protein 8.2, Albumin 2.4L, Globulin 5.8, Albumin/Globulin Ratio 0.4L, Triglycerides Level 108 , Cholesterol Level 114, LDL Cholesterol 70, HDL Cholesterol 29L, Cholesterol/ HDL Ratio 3.9, Free Thyroxine 1.24, Free Triiodothyronine 1.7L, Rheumatoid Factor Screen [Pending] Height (Feet): 5 Height (Inches): 1.00 Weight (Pounds): 92 General Appearance: lethargic EENT: normal ENT inspection Neck: normal alignment Cardiovascular: normal peripheral pulses, normal rate, regular rhythm Respiratory/Chest: chest wall non-tender, lungs clear, normal breath sounds Abdomen: normal bowel sounds, non tender, soft Extremities: normal inspection Edema: no edema noted Arm (L), no edema noted Arm (R), no edema noted Leg (L), no edema noted Leg (R), no edema noted Pedal (L), no edema noted Pedal (R), no edema noted Generalized Neurologic: responsive, motor weakness Skin: normal pigmentation, warm/dry Isaak Herrera DO Apr 24, 2019 09:37
--- NOTE | 2019-04-24 11:09 | NUR ---
NURSE NOTES: Dr. Herrera aware of blood results. Paged Dr. High as ordered.
[2019-04-24] MEDS: cefTRIAXone 1 GM in D5W 55 ML IVPB SCH (11:47)
--- NOTE | 2019-04-24 11:51 | Consultation ---
History of Present Illness General Date patient seen: Apr 24, 2019 Chief Complaint: Dyspnea/Respdistress Present Illness HPI 73 y/o F with hx of RA, pulmonary MAC, emphysema, osteoporosis, multiple episodes of pneumonia presented to ED on 04/21 with 1week of SOB and productive cough and 1 day of R upper chest wall pain with coughing and movement . Upon admission, she was found to have ROLANDO and hyperkalemia Denied f/c, CARDENAS, n/v/d, abd pain, urinary symptoms Allergies: Coded Allergies: No Known Allergies (Unverified , 10/02/15) Medication History Scheduled Alendronate Sodium* (Fosamax*), Unknown Dose ORAL DAILY, (Reported) Aspirin* (Aspir 81*), 81 MG ORAL DAILY, (Reported) Methylprednisolone (Methylprednisolone*), 4 MG ORAL DIRECTED, (Reported) Miscellaneous Medications Calcium Carbonate (Calcium), 500 MG PO, (Reported) Hydroxychloroquine Sulfate (Hydroxychloroquine Sulfate), 200 MG PO, (Reported) Ibuprofen* (Advil*), Unknown Dose ORAL, (Reported) Patient History Healthcare decision maker N Resuscitation status Full Code Advanced Directive on File Patient History Narrative Pmhx: as above Shx: Denies tobacco, drug or alcohol use Fhx: non contributory Review of Systems All Other Systems: negative except mentioned in HPI Physical Exam Physical Exam Narrative GENERAL: Calm in bed, slight coughing, oriented x3, in no acute distress. CARDIOVASCULAR: No murmur. LUNGS: Distant and clear. ABDOMEN: Bowel sounds positive. EXTREMITIES: No cyanosis, clubbing, or edema. NEUROLOGIC: The patient moves all extremities, slightly weak. Last 24 Hour Vital Signs Date Time Temp Pulse Resp B/P (MAP) Pulse Ox O2 Delivery O2 Flow Rate FiO2 04/24/19 09:00 Room Air 04/24/19 08:00 98.9 84 18 106/63 (77) 95 04/24/19 04:00 99.0 79 18 109/61 (77) 94 04/24/19 00:00 99.0 81 18 101/60 (74) 95 04/23/19 21:00 Room Air 04/23/19 20:00 99.5 83 18 109/65 (80) 95 04/23/19 16:00 99.3 73 20 112/69 (83) 93 04/23/19 14:45 98.8 81 20 102/60 (74) 93 04/23/19 12:00 97.8 70 21 115/68 (84) 95 04/23/19 12:00 67 Intake and Output 04/23/19 04/24/19 18:59 06:59 Intake Total 600 ml 940 ml Balance 600 ml 940 ml Intake Oral 300 ml 240 ml IV Total 300 ml 700 ml # Voids 1 2 # Bowel Movements 1 Laboratory Tests Test 04/23/19 13:30 04/23/19 13:44 04/24/19 05:10 Stool Occult Blood Negative (NEGATIVE) Urine Color Pale yellow Urine Appearance Clear Urine pH 7 (4.5-8.0) Urine Specific [place] 1.005 (1.005-1.035) Urine Protein 1+ (NEGATIVE) H Urine Glucose (UA) Negative (NEGATIVE) Urine Ketones Negative (NEGATIVE) Urine Blood 5+ (NEGATIVE) H Urine Nitrite Negative (NEGATIVE) Urine Bilirubin Negative (NEGATIVE) Urine Urobilinogen Normal MG/DL (0.0-1.0) Urine Leukocyte Esterase 1+ (NEGATIVE) H Urine RBC 5-10 /HPF (0 - 2) H Urine WBC 2-4 /HPF (0 - 2) Urine Squamous Epithelial Cells Occasional /LPF Urine Bacteria Occasional /HPF (NONE) Urine Random Sodium 44 mmol/L (20-110) White Blood Count 5.3 K/UL (4.8-10.8) Red Blood Count 3.27 M/UL (4.20-5.40) L Hemoglobin 10.1 G/DL (12.0-16.0) L Hematocrit 30.5 % (37.0-47.0) L Mean Corpuscular Volume 93 FL (80-99) Mean Corpuscular Hemoglobin 30.8 PG (27.0-31.0) Mean Corpuscular Hemoglobin Concent 33.0 G/DL (32.0-36.0) Red Cell Distribution Width 11.7 % (11.6-14.8) Platelet Count 330 K/UL (150-450) Mean Platelet Volume 5.4 FL (6.5-10.1) L Neutrophils (%) (Auto) 68.2 % (45.0-75.0) Lymphocytes (%) (Auto) 20.7 % (20.0-45.0) Monocytes (%) (Auto) 8.9 % (1.0-10.0) Eosinophils (%) (Auto) 1.5 % (0.0-3.0) Basophils (%) (Auto) 0.7 % (0.0-2.0) Erythrocyte Sedimentation Rate 103 MM/HR (0-30) H Sodium Level 141 MMOL/L (136-145) Potassium Level 4.5 MMOL/L (3.5-5.1) Chloride Level 108 MMOL/L (98-107) H Carbon Dioxide Level 22 MMOL/L (21-32) Anion Gap 11 mmol/L (5-15) Blood Urea Nitrogen 34 mg/dL (7-18) H Creatinine 1.8 MG/DL (0.55-1.30) H Estimat Glomerular Filtration Rate mL/min (>60) Glucose Level 91 MG/DL (74-106) Hemoglobin A1c 6.2 % (4.3-6.0) H Uric Acid 6.3 MG/DL (2.6-7.2) Calcium Level 8.7 MG/DL (8.5-10.1) Phosphorus Level 3.8 MG/DL (2.5-4.9) Magnesium Level 2.0 MG/DL (1.8-2.4) Total Bilirubin 0.3 MG/DL (0.2-1.0) Gamma Glutamyl Transpeptidase 11 U/L (5-85) Aspartate Amino Transf (AST/SGOT) 19 U/L (15-37) Alanine Aminotransferase (ALT/SGPT) 11 U/L (12-78) L Alkaline Phosphatase 69 U/L (46-116) C-Reactive Protein, Quantitative 7.2 mg/dL (0.00-0.90) H Pro-B-Type Natriuretic Peptide 780 pg/mL (0-125) H Total Protein 8.2 G/DL (6.4-8.2) Albumin 2.4 G/DL (3.4-5.0) L Globulin 5.8 g/dL Albumin/Globulin Ratio 0.4 (1.0-2.7) L Triglycerides Level 108 MG/DL (30-150) Cholesterol Level 114 MG/DL (< 200) LDL Cholesterol 70 mg/dL (<100) HDL Cholesterol 29 MG/DL (40-60) L Cholesterol/HDL Ratio 3.9 (3.3-4.4) Free Thyroxine 1.24 NG/DL (0.76-1.46) Free Triiodothyronine 1.7 pg/mL (2.3-4.2) L Rheumatoid Factor Screen Pending Microbiology Date/Time Source Procedure Growth Status 04/23/19 13:44 Urine,Clean Catch Urine Culture - Preliminary NO GROWTH Resulted Height (Feet): 5 Height (Inches): 1.00 Weight (Pounds): 92 Medications Current Medications Medications (Trade) Dose Ordered Sig/Floyd Route PRN Reason Start Time Stop Time Status Last Admin Dose Admin Acetaminophen (Tylenol) 650 mg Q4H PRN ORAL T>100.5 04/23/19 14:25 05/23/19 14:24 Ceftriaxone Sodium 1 gm/ Dextrose 55 ml @ 110 mls/hr Q24H IVPB 04/24/19 11:00 04/29/19 10:59 Dextrose (Dextrose 50%) 25 ml Q30M PRN IV Hypoglycemia 04/23/19 14:30 05/21/19 06:52 Dextrose (Dextrose 50%) 50 ml Q30M PRN IV hypoglycemia 04/23/19 14:30 05/21/19 06:52 Dextrose/Sodium Chloride 1,000 ml @ 100 mls/hr Q10H IV 04/24/19 08:00 04/24/19 17:59 04/24/19 08:28 Docusate Sodium (Colace) 100 mg TWICE A DAY ORAL 04/23/19 18:00 05/23/19 17:59 04/24/19 08:27 Hydroxychloroquine Sulfate (Plaquenil) 200 mg DAILY ORAL 04/24/19 09:00 05/22/19 08:59 04/24/19 08:27 Lorazepam (Ativan 2mg/ml 1ml) 0.5 mg Q4H PRN IV For Anxiety 04/23/19 14:26 04/30/19 14:25 Morphine Sulfate (Morphine Sulfate) 1 mg Q4H PRN IVP PAIN 4-10 04/23/19 14:26 04/30/19 14:25 Ondansetron HCl (Zofran) 4 mg Q6H PRN IVP Nausea & Vomiting 04/23/19 14:26 05/23/19 14:25 Pantoprazole (Protonix) 40 mg DAILY ORAL 04/24/19 09:00 05/23/19 10:29 04/24/19 08:27 Polyethylene Glycol (Miralax) 17 gm HSPRN PRN ORAL Constipation 04/23/19 14:26 05/23/19 14:25 Vancomycin HCl (Vanco rx to dose) 1 ea DAILY PRN MISC Per rx protocol 04/24/19 11:30 05/24/19 11:29 Vancomycin HCl 750 mg/Sodium Chloride 275 ml @ 183.333 mls/hr NOW ONCE IVPB 04/24/19 12:00 04/24/19 13:29 Zolpidem Tartrate (Ambien) 5 mg HSPRN PRN ORAL Insomnia 04/23/19 14:27 04/30/19 14:26 Assessment/Plan Assessment/Plan: Abx: Ceftriaxone 04/22- Assessment: Probable CAP -CXR: Bilateral mostly interstitial disease. This likely represents acute interstitial infiltrates versus edema Gram positive bacteremia- ? contaminant vs real -04/21 Bcx / GPC clusters Afebrile No leukocytosis -u/a no pyuria ROLANDO, improving Hyperkalemia, SP RA hx of pulmonary MAC emphysema osteoporosis hx of multiple episodes of pneumonia Plan: -Continue empiric Ceftriaxone #3 and add IV Vancomycin for gram positive bacteremia -f/u cx -Monitor CBC/CMP, temperatures -BCx x2, Sp cx Thank you for this consultation. Will continue to follow along with you. Discussed with Nayla Gutierrez M.D. Apr 24, 2019 11:51
[2019-04-24 12:00] VITALS: BP 108/57
[2019-04-24] MEDS ORDERED: Vancomycin 750mg/NS 275ml IVPB ONE ×2 (12:00)
--- NOTE | 2019-04-24 12:22 | NUR ---
DISCHARGE PLANNING Discharge order noted Formerly [facility], [address], [place] [id number] Await Acceptance
--- NOTE | 2019-04-24 12:41 | Pulmonology Progress Note ---
Assessment/Plan Problems: (1) Purulent bronchitis (2) Anemia (3) Emphysema lung (4) Costochondritis (5) Severe protein-calorie malnutrition (6) ROLANDO (acute kidney injury) Assessment/Plan respiratory treatment check sputum continue abx, as per ID titrate fio2 to sat of 92% renal w/u dvt prophylaxis symptomatic treatment might go to med/surg. Subjective ROS Limited/Unobtainable: No Constitutional: Reports: no symptoms HEENT: Repors: no symptoms Allergies: Coded Allergies: No Known Allergies (Unverified , 10/02/15) Objective Last 24 Hour Vital Signs Date Time Temp Pulse Resp B/P (MAP) Pulse Ox O2 Delivery O2 Flow Rate FiO2 04/24/19 12:00 98.7 77 17 108/57 (74) 95 04/24/19 09:00 Room Air 04/24/19 08:00 98.9 84 18 106/63 (77) 95 04/24/19 04:00 99.0 79 18 109/61 (77) 94 04/24/19 00:00 99.0 81 18 101/60 (74) 95 04/23/19 21:00 Room Air 04/23/19 20:00 99.5 83 18 109/65 (80) 95 04/23/19 16:00 99.3 73 20 112/69 (83) 93 04/23/19 14:45 98.8 81 20 102/60 (74) 93 Intake and Output 04/23/19 04/24/19 18:59 06:59 Intake Total 600 ml 940 ml Balance 600 ml 940 ml Intake Oral 300 ml 240 ml IV Total 300 ml 700 ml # Voids 1 2 # Bowel Movements 1 General Appearance: WD/WN Respiratory/Chest: chest wall non-tender, lungs clear Breasts: no masses Cardiovascular: normal rate Abdomen: normal bowel sounds, no organomegaly Genitourinary: normal external genitalia Extremities: no clubbing Skin: no rash Microbiology Date/Time Source Procedure Growth Status 04/21/19 15:25 Blood Blood Culture - Preliminary Resulted 04/21/19 15:10 Blood Blood Culture - Preliminary NO GROWTH AFTER 48 HOURS Resulted 04/23/19 13:44 Urine,Clean Catch Urine Culture - Preliminary NO GROWTH Resulted Laboratory Tests 04/23/19 13:30: Stool Occult Blood Negative 04/23/19 13:44: Urine Color Pale yellow, Urine Appearance Clear, Urine pH 7, Urine Specific [place] 1.005, Urine Protein 1+H, Urine Glucose (UA) Negative, Urine Ketones Negative, Urine Blood 5+H, Urine Nitrite Negative, Urine Bilirubin Negative, Urine Urobilinogen Normal, Urine Leukocyte Esterase 1+H, Urine RBC 5-10H, Urine WBC 2-4, Urine Squamous Epithelial Cells Occasional, Urine Bacteria Occasional, Urine Random Sodium 44 04/24/19 05:10: White Blood Count 5.3, Red Blood Count 3.27L, Hemoglobin 10.1L, Hematocrit 30.5L , Mean Corpuscular Volume 93, Mean Corpuscular Hemoglobin 30.8, Mean Corpuscular Hemoglobin Concent 33.0, Red Cell Distribution Width 11.7, Platelet Count 330, Mean Platelet Volume 5.4L, Neutrophils (%) (Auto) 68.2, Lymphocytes ( %) (Auto) 20.7, Monocytes (%) (Auto) 8.9, Eosinophils (%) (Auto) 1.5, Basophils (%) (Auto) 0.7, Erythrocyte Sedimentation Rate 103H, Sodium Level 141, Potassium Level 4.5, Chloride Level 108H, Carbon Dioxide Level 22, Anion Gap 11 , Blood Urea Nitrogen 34H, Creatinine 1.8H, Estimat Glomerular Filtration Rate , Glucose Level 91, Hemoglobin A1c 6.2H, Uric Acid 6.3, Calcium Level 8.7, Phosphorus Level 3.8, Magnesium Level 2.0, Total Bilirubin 0.3, Gamma Glutamyl Transpeptidase 11, Aspartate Amino Transf (AST/SGOT) 19, Alanine Aminotransferase (ALT/SGPT) 11L, Alkaline Phosphatase 69, C-Reactive Protein, Quantitative 7.2H, Pro-B-Type Natriuretic Peptide 780H, Total Protein 8.2, Albumin 2.4L, Globulin 5.8, Albumin/Globulin Ratio 0.4L, Triglycerides Level 108 , Cholesterol Level 114, LDL Cholesterol 70, HDL Cholesterol 29L, Cholesterol/ HDL Ratio 3.9, Free Thyroxine 1.24, Free Triiodothyronine 1.7L, Rheumatoid Factor Screen [Pending] Current Medications Medications (Trade) Dose Ordered Sig/Floyd Route PRN Reason Start Time Stop Time Status Last Admin Dose Admin Acetaminophen (Tylenol) 650 mg Q4H PRN ORAL T>100.5 04/23/19 14:25 05/23/19 14:24 Ceftriaxone Sodium 1 gm/ Dextrose 55 ml @ 110 mls/hr Q24H IVPB 04/24/19 11:00 04/29/19 10:59 04/24/19 11:47 Dextrose (Dextrose 50%) 25 ml Q30M PRN IV Hypoglycemia 04/23/19 14:30 05/21/19 06:52 Dextrose (Dextrose 50%) 50 ml Q30M PRN IV hypoglycemia 04/23/19 14:30 05/21/19 06:52 Dextrose/Sodium Chloride 1,000 ml @ 100 mls/hr Q10H IV 04/24/19 08:00 04/24/19 17:59 04/24/19 08:28 Docusate Sodium (Colace) 100 mg TWICE A DAY ORAL 04/23/19 18:00 05/23/19 17:59 04/24/19 08:27 Hydroxychloroquine Sulfate (Plaquenil) 200 mg DAILY ORAL 04/24/19 09:00 05/22/19 08:59 04/24/19 08:27 Lorazepam (Ativan 2mg/ml 1ml) 0.5 mg Q4H PRN IV For Anxiety 04/23/19 14:26 04/30/19 14:25 Morphine Sulfate (Morphine Sulfate) 1 mg Q4H PRN IVP PAIN 4-10 04/23/19 14:26 04/30/19 14:25 Ondansetron HCl (Zofran) 4 mg Q6H PRN IVP Nausea & Vomiting 04/23/19 14:26 05/23/19 14:25 Pantoprazole (Protonix) 40 mg DAILY ORAL 04/24/19 09:00 05/23/19 10:29 04/24/19 08:27 Polyethylene Glycol (Miralax) 17 gm HSPRN PRN ORAL Constipation 04/23/19 14:26 05/23/19 14:25 Vancomycin HCl (Vanco rx to dose) 1 ea DAILY PRN MISC Per rx protocol 04/24/19 11:30 05/24/19 11:29 Vancomycin HCl 750 mg/Sodium Chloride 275 ml @ 183.333 mls/hr NOW ONCE IVPB 04/24/19 12:00 04/24/19 13:29 Zolpidem Tartrate (Ambien) 5 mg HSPRN PRN ORAL Insomnia 04/23/19 14:27 04/30/19 14:26 Stephan Perez MD Apr 24, 2019 12:40
[2019-04-24 16:00] VITALS: BP 108/62
--- NOTE | 2019-04-24 19:39 | NUR ---
HAND-OFF: Report given to Edgar CASTRO. patient is stable.
[2019-04-24 20:00] VITALS: BP 106/80
--- NOTE | 2019-04-24 21:19 | NUR ---
NURSE NOTES: Received report from Cari Leos RN. Patient is resting comfortably in bed with right forearm IV 22g intact and saline locked. No c/o of pain or SOB. Family at bedside.
[2019-04-25] VITALS: BP 103/56
[2019-04-25 04:00] VITALS: BP 106/62
--- NOTE | 2019-04-25 07:10 | Pulmonology Progress Note ---
Assessment/Plan Problems: (1) Purulent bronchitis (2) Anemia (3) Emphysema lung (4) Costochondritis (5) Severe protein-calorie malnutrition (6) ROLANDO (acute kidney injury) Assessment/Plan respiratory treatment check sputum continue abx, as per ID titrate fio2 to sat of 92% renal w/u dvt prophylaxis symptomatic treatment dc planning Subjective ROS Limited/Unobtainable: No Constitutional: Reports: no symptoms HEENT: Repors: no symptoms Respiratory: Reports: no symptoms Allergies: Coded Allergies: No Known Allergies (Unverified , 10/02/15) Objective Last 24 Hour Vital Signs Date Time Temp Pulse Resp B/P (MAP) Pulse Ox O2 Delivery O2 Flow Rate FiO2 04/25/19 04:00 98.7 73 16 106/62 (77) 96 04/25/19 00:00 98.6 83 16 103/56 (72) 98 04/24/19 21:00 Room Air 04/24/19 20:00 98.2 83 18 106/80 (89) 94 04/24/19 16:00 98.1 72 19 108/62 (77) 97 04/24/19 12:00 98.7 77 17 108/57 (74) 95 04/24/19 09:00 Room Air 04/24/19 08:00 98.9 84 18 106/63 (77) 95 Intake and Output 04/24/19 04/25/19 19:00 07:00 Intake Total 1480 ml 120 ml Balance 1480 ml 120 ml Intake Oral 480 ml 120 ml IV Total 1000 ml # Voids 1 1 General Appearance: WD/WN HEENT: normocephalic, atraumatic Respiratory/Chest: chest wall non-tender, lungs clear Breasts: no masses Cardiovascular: normal peripheral pulses, normal rate Extremities: no cyanosis Skin: no rash Microbiology Date/Time Source Procedure Growth Status 04/23/19 13:44 Urine,Clean Catch Urine Culture - Final NO GROWTH AFTER 48 HOURS Complete Laboratory Tests 04/25/19 05:30: Random Vancomycin Level [Pending] Current Medications Medications (Trade) Dose Ordered Sig/Floyd Route PRN Reason Start Time Stop Time Status Last Admin Dose Admin Acetaminophen (Tylenol) 650 mg Q4H PRN ORAL T>100.5 04/23/19 14:25 05/23/19 14:24 Ceftriaxone Sodium 1 gm/ Dextrose 55 ml @ 110 mls/hr Q24H IVPB 04/24/19 11:00 04/29/19 10:59 04/24/19 11:47 Dextrose (Dextrose 50%) 25 ml Q30M PRN IV Hypoglycemia 04/23/19 14:30 05/21/19 06:52 Dextrose (Dextrose 50%) 50 ml Q30M PRN IV hypoglycemia 04/23/19 14:30 05/21/19 06:52 Docusate Sodium (Colace) 100 mg TWICE A DAY ORAL 04/23/19 18:00 05/23/19 17:59 04/24/19 17:55 Hydroxychloroquine Sulfate (Plaquenil) 200 mg DAILY ORAL 04/24/19 09:00 05/22/19 08:59 04/24/19 08:27 Lorazepam (Ativan 2mg/ml 1ml) 0.5 mg Q4H PRN IV For Anxiety 04/23/19 14:26 04/30/19 14:25 Morphine Sulfate (Morphine Sulfate) 1 mg Q4H PRN IVP PAIN 4-10 04/23/19 14:26 04/30/19 14:25 Ondansetron HCl (Zofran) 4 mg Q6H PRN IVP Nausea & Vomiting 04/23/19 14:26 05/23/19 14:25 Pantoprazole (Protonix) 40 mg DAILY ORAL 04/24/19 09:00 05/23/19 10:29 04/24/19 08:27 Polyethylene Glycol (Miralax) 17 gm HSPRN PRN ORAL Constipation 04/23/19 14:26 05/23/19 14:25 Vancomycin HCl (Vanco rx to dose) 1 ea DAILY PRN MISC Per rx protocol 04/24/19 11:30 05/24/19 11:29 Zolpidem Tartrate (Ambien) 5 mg HSPRN PRN ORAL Insomnia 04/23/19 14:27 04/30/19 14:26 Stephan Perez MD Apr 25, 2019 07:10
--- NOTE | 2019-04-25 07:26 | NUR ---
HAND-OFF: Report given to Flor. CASTRO. Patient in stable conditon resting.
--- NOTE | 2019-04-25 07:30 | NUR ---
NURSE NOTES: AWAKE/ALERT. NO C/O PAIN. IN NO DISTRESS.
[2019-04-25 08:00] VITALS: BP 100/57
[2019-04-25] MEDS: Docusate 100mg cap ORAL SCH (08:20)
[2019-04-25] MEDS ORDERED: Vancomycin 1gm/D5W 275ml IVPB ONE ×2 (09:00)
--- NOTE | 2019-04-25 10:33 | General Progress Note ---
Assessment/Plan Problem List: (1) SOB (shortness of breath) ICD Codes: R06.02 - Shortness of breath SNOMED: 219681872 (2) Cough ICD Codes: R05 - Cough SNOMED: 42683864 (3) Anemia ICD Codes: D64.9 - Anemia, unspecified SNOMED: 557639286 (4) CHF (congestive heart failure) ICD Codes: I50.9 - Heart failure, unspecified SNOMED: 67084850 (5) ROLANDO (acute kidney injury) ICD Codes: N17.9 - Acute kidney failure, unspecified SNOMED: 3478371, 53200568 Status: stable, progressing Assessment/Plan: o2 pulm tx abx pt diet dc w hh if clear Subjective Constitutional: Reports: weakness Allergies: Coded Allergies: No Known Allergies (Unverified , 10/02/15) All Systems: reviewed and negative except above Subjective calm in bed Objective Last 24 Hour Vital Signs Date Time Temp Pulse Resp B/P (MAP) Pulse Ox O2 Delivery O2 Flow Rate FiO2 04/25/19 09:05 Room Air 04/25/19 08:00 98.5 81 19 100/57 (71) 57 04/25/19 04:00 98.7 73 16 106/62 (77) 96 04/25/19 00:00 98.6 83 16 103/56 (72) 98 04/24/19 21:00 Room Air 04/24/19 20:00 98.2 83 18 106/80 (89) 94 04/24/19 16:00 98.1 72 19 108/62 (77) 97 04/24/19 12:00 98.7 77 17 108/57 (74) 95 Intake and Output 04/24/19 04/25/19 19:00 07:00 Intake Total 1480 ml 120 ml Balance 1480 ml 120 ml Intake Oral 480 ml 120 ml IV Total 1000 ml # Voids 1 1 Laboratory Tests 04/25/19 05:30: Random Vancomycin Level 10.0 Height (Feet): 5 Height (Inches): 1.00 Weight (Pounds): 92 General Appearance: alert EENT: normal ENT inspection Neck: normal alignment Cardiovascular: normal peripheral pulses, normal rate, regular rhythm Respiratory/Chest: chest wall non-tender, lungs clear, normal breath sounds Abdomen: normal bowel sounds, non tender, soft Extremities: normal inspection Edema: no edema noted Arm (L), no edema noted Arm (R), no edema noted Leg (L), no edema noted Leg (R), no edema noted Pedal (L), no edema noted Pedal (R), no edema noted Generalized Neurologic: responsive, motor weakness Skin: normal pigmentation, warm/dry Isaak Herrera DO Apr 25, 2019 10:33
[2019-04-25] MEDS: cefTRIAXone 1 GM in D5W 55 ML IVPB SCH (11:09)
[2019-04-25 12:00] VITALS: BP 103/64
--- NOTE | 2019-04-25 12:07 | Infectious Diseases Prog Note ---
Assessment/Plan Assessment/Plan Abx: Ceftriaxone 04/22- Assessment: Probable CAP -CXR: Bilateral mostly interstitial disease. This likely represents acute interstitial infiltrates versus edema Gram positive bacteremia- Most likely contaminant -04/21 Bcx 08/22 CoNS Afebrile No leukocytosis -u/a no pyuria ROLANDO, improving Hyperkalemia, SP RA hx of pulmonary MAC emphysema osteoporosis hx of multiple episodes of pneumonia Plan: -Continue empiric Ceftriaxone #4/7 and IV Vancomycin #2 for gram positive bacteremia -f/u cx -Monitor CBC/CMP, temperatures - f/u Sp cx - f/u Repeat BCx Thank you for this consultation. Will continue to follow along with you. Subjective Allergies: Coded Allergies: No Known Allergies (Unverified , 10/02/15) Subjective Afebrile No leukocytosis Objective Vital Signs Last 24 Hour Vital Signs Date Time Temp Pulse Resp B/P (MAP) Pulse Ox O2 Delivery O2 Flow Rate FiO2 04/25/19 09:05 Room Air 04/25/19 08:00 98.5 81 19 100/57 (71) 57 04/25/19 04:00 98.7 73 16 106/62 (77) 96 04/25/19 00:00 98.6 83 16 103/56 (72) 98 04/24/19 21:00 Room Air 04/24/19 20:00 98.2 83 18 106/80 (89) 94 04/24/19 16:00 98.1 72 19 108/62 (77) 97 Height (Feet): 5 Height (Inches): 1.00 Weight (Pounds): 92 Objective GENERAL: NAD HEENT: NCAT, MMM, EOMI CARDIOVASCULAR: RRR, S1, S2 LUNGS: CTAB, Distant and clear. ABDOMEN: Bowel sounds positive. Soft, NT NEUROLOGIC: A/O X 4 The patient moves all extremities, slightly weak. Microbiology Date/Time Source Procedure Growth Status 04/23/19 13:44 Urine,Clean Catch Urine Culture - Final NO GROWTH AFTER 48 HOURS Complete Laboratory Tests Test 04/25/19 05:30 Random Vancomycin Level 10.0 ug/mL Current Medications Medications (Trade) Dose Ordered Sig/Floyd Route PRN Reason Start Time Stop Time Status Last Admin Dose Admin Acetaminophen (Tylenol) 650 mg Q4H PRN ORAL T>100.5 04/23/19 14:25 05/23/19 14:24 Ceftriaxone Sodium 1 gm/ Dextrose 55 ml @ 110 mls/hr Q24H IVPB 04/24/19 11:00 04/29/19 10:59 04/25/19 11:09 Dextrose (Dextrose 50%) 25 ml Q30M PRN IV Hypoglycemia 04/23/19 14:30 05/21/19 06:52 Dextrose (Dextrose 50%) 50 ml Q30M PRN IV hypoglycemia 04/23/19 14:30 05/21/19 06:52 Docusate Sodium (Colace) 100 mg TWICE A DAY ORAL 04/23/19 18:00 05/23/19 17:59 04/25/19 08:20 Hydroxychloroquine Sulfate (Plaquenil) 200 mg DAILY ORAL 04/24/19 09:00 05/22/19 08:59 04/25/19 08:20 Lorazepam (Ativan 2mg/ml 1ml) 0.5 mg Q4H PRN IV For Anxiety 04/23/19 14:26 04/30/19 14:25 Morphine Sulfate (Morphine Sulfate) 1 mg Q4H PRN IVP PAIN 4-10 04/23/19 14:26 04/30/19 14:25 Ondansetron HCl (Zofran) 4 mg Q6H PRN IVP Nausea & Vomiting 04/23/19 14:26 05/23/19 14:25 Pantoprazole (Protonix) 40 mg DAILY ORAL 04/24/19 09:00 05/23/19 10:29 04/25/19 08:20 Polyethylene Glycol (Miralax) 17 gm HSPRN PRN ORAL Constipation 04/23/19 14:26 05/23/19 14:25 Vancomycin HCl (Vanco rx to dose) 1 ea DAILY PRN MISC Per rx protocol 04/24/19 11:30 05/24/19 11:29 Zolpidem Tartrate (Ambien) 5 mg HSPRN PRN ORAL Insomnia 04/23/19 14:27 04/30/19 14:26 Cruz Griggs MD Apr 25, 2019 12:07
--- NOTE | 2019-04-25 12:18 | Nephrology Progress Note ---
Assessment/Plan Status: stable, progressing Assessment/Plan: A/P 1) Renal failure Cr 2.1 down to 1.8 2) High K resolving 3) dehydration- resolved patient OK for Dc from renal point if Cr <1.9 and K back in normal range. BMP results pending Subjective Date patient seen: Apr 25, 2019 Time patient seen: 12:16 ROS Limited/Unobtainable: No Allergies: Coded Allergies: No Known Allergies (Unverified , 10/02/15) Subjective Patient feeling better Objective Last 24 Hour Vital Signs Date Time Temp Pulse Resp B/P (MAP) Pulse Ox O2 Delivery O2 Flow Rate FiO2 04/25/19 09:05 Room Air 04/25/19 08:00 98.5 81 19 100/57 (71) 57 04/25/19 04:00 98.7 73 16 106/62 (77) 96 04/25/19 00:00 98.6 83 16 103/56 (72) 98 04/24/19 21:00 Room Air 04/24/19 20:00 98.2 83 18 106/80 (89) 94 04/24/19 16:00 98.1 72 19 108/62 (77) 97 Intake and Output 04/24/19 04/25/19 19:00 07:00 Intake Total 1480 ml 120 ml Balance 1480 ml 120 ml Intake Oral 480 ml 120 ml IV Total 1000 ml # Voids 1 1 Laboratory Tests 04/25/19 05:30: Random Vancomycin Level 10.0 Height (Feet): 5 Height (Inches): 1.00 Weight (Pounds): 92 General Appearance: no apparent distress, alert EENT: normal ENT inspection Neck: normal alignment, supple Cardiovascular: normal rate, regular rhythm Respiratory/Chest: lungs clear, normal breath sounds Abdomen: non tender, soft Edema: no edema noted Arm (L), no edema noted Arm (R), no edema noted Leg (L), no edema noted Leg (R), no edema noted Pedal (L), no edema noted Pedal (R), no edema noted Generalized Vicente Rolle MD Apr 25, 2019 12:18
[2019-04-25 12:28] LABS: ANION GAP 9 mmol/L (5-15); BLOOD UREA NITROGEN 32 mg/dL (7-18); CALCIUM 8.8 MG/DL (8.5-10.1); CARBON DIOXIDE 24 MMOL/L (21-32); CHLORIDE 111 MMOL/L (98-107); CREATININE 1.7 MG/DL (0.55-1.30); POTASSIUM 4.7 MMOL/L (3.5-5.1); SODIUM 144 MMOL/L (136-145)
[2019-04-25] MEDS ORDERED: NS 275ml ONE (14:18)
--- NOTE | 2019-04-25 15:00 | NUR ---
NURSE NOTES: DISCHARGED HOME PER WHEELCHAIR ACCPD BY SON IN STABLE CONDITION. DC INSTRUCTIONS GIVEN.
--- NOTE | 2019-04-27 10:13 | Discharge Summary ---
Discharge Summary Discharge Summary _ DATE OF ADMISSION: 04/21/2019 DATE OF DISCHARGE: 04/25/2019 DISCHARGED BY: Dr. Herrera REASON FOR ADMISSION: 73 years old female with past medical history of osteoporosis, rheumatoid arthritis, pulmonary MAC, multiple episodes of pneumonia, presented with shortness of breath and cough. Patient reported symptoms for one week. Patient reported productive cough without fevers or chills. The day prior to presentation to ED patient started to experience right upper chest wall pain while coughing, along with bending and twisting motions. She denied any squeezing sensation. She denied associated shortness of breath. She denied headache. No nausea, vomiting, diarrhea, abdominal pain. No dysuria or hematuria. Patient also reported some sinus congestion and sore throat. Upon evaluation in the emergency department vital signs were stable. Pulse oximetry was 90% on room air. Laboratory work-up revealed no leukocytosis, hemoglobin 9.5 , hematocrit 26.9. Potassium 5.9. BUN 49, creatinine 2.1. Stable LFT. Troponin negative. pro BNP 1738. Urinalysis revealed +3 protein, +5 blood, +1 leukocyte esterase, minimal pyuria and few bacteria. EKG revealed sinus rhythm with peaked T waves. Chest x-ray revealed bilateral vascular congestion without infiltrate or pneumothorax. Hyperkalemia was treated with IV calcium, insulin and dextrose. Patient was subsequently admitted to telemetry floor for further management. CONSULTANTS: pulmonary Dr. Perez ID specialist Dr. Lopez acid pumper Dr. Unger [facility] COURSE: Patient admitted to telemetry floor. Supplemental oxygen provided as needed to keep pulse oximetry above 92%. Pulmonary toilet with bronchodilator provided as needed. Patient started on empiric antibiotic. Antitussive provided as needed. Venous duplex bilateral lower extremity revealed no evidence of acute DVT. ID specialist followed. Urine cultures were negative. Blood culture initially revealed Staph coagulase negative 1 out of 4, repeated blood cultures were negative. Patient experienced no leukocytosis ,no fevers. Initial Staph coagulase negative bacteremia with likely contamination. Flight Service Agent followed. Urine studies were done. Renal parameters and electrolytes were closely monitored. Electrolytes further corrected as needed. Prior to discharge potassium 4.7. Creatinine from 2.1 down to 1.7 and BUN from 49 down to 22 with IV hydration. Hemoglobin and hematocrit were closely monitored with goal to keep hemoglobin above 7. Anemia work-up was consistent with anemia of chronic disease. Pathology review revealed normocytic normochromic anemia with mild leukopenia. Stool for occult blood was negative. CEA within normal limits. Prior to discharge hemoglobin 10.1 hematocrit 30.5. Dietary supplements implemented in patient's diet as per registered travel nurse recommendation. Pain management was addressed as needed. Rheumatoid factor was negative. Patient continued on Plaquenil. GI prophylaxis provided. Supportive care provided. Bowel regimen instituted. Patient clinically stabilized. Prior to discharge pulse oximetry stable on room air . Patient clinically improved and was ready for discharge home with home health services. FINAL DIAGNOSES: Probable community-acquired pneumonia Purulent bronchitis Renal failure, acute on chronic Dehydration Hyperkalemia-resolved History of pulmonary MAC Emphysema Osteoporosis History of multiple episodes of pneumonia Severe protein calorie malnutrition Costochondritis DISCHARGE MEDICATIONS: See Medication Reconciliation list. DISCHARGE INSTRUCTIONS: Patient was discharged home with home health services. Follow up with primary care provider in one week. I have been assigned to dictate discharge summary for this account. I was not involved in the patient's management. Nora Hinojosa NP Apr 27, 2019 10:13
== END 2019-04-25 16:45 | disposition home health service (06) | DRG 193 ==
LOC: EMR 15:20 → EDBEDREQ 16:29 → 2W 16:39 → EDBEDREQ 18:41 → 2W 19:15 → 2E 04-23 06:20 → 3E 04-23 14:20
DX: J18.9 Pneumonia, unspecified organism (principal); E43 Unspecified severe protein-calorie malnutrition; N17.9 Acute kidney failure, unspecified; N39.0 Urinary tract infection, site not specified; E87.5 Hyperkalemia; D63.8 Anemia in other chronic diseases classified elsewhere; J41.1 Mucopurulent chronic bronchitis; E86.0 Dehydration; N18.9 Chronic kidney disease, unspecified; J43.9 Emphysema, unspecified; I50.9 Heart failure, unspecified; M81.0 Age-related osteoporosis without current pathological fracture; M94.0 Chondrocostal junction syndrome [Tietze]; Z87.01 Personal history of pneumonia (recurrent)
CPT/HCPCS: 36415; 71045; 80048; 80053; 80061; 80202; 81001; 81003; 82270; 82378; 82607; 82728; 82746; 82977; 83036; 83540; 83550; 83615; 83735; 83880; 84100; 84300; 84439; 84443; 84481; 84484; 84550; 85007; 85025; 85044; 85060; 85610; 85651; 85730; 86140; 86431; 87040; 87086; 87181; 93005; 93970; 96374; 96375; 97803; 99291

== ENCOUNTER 2019-05-01 15:48 | Inpatient (IN) | payer MEDICARE, OTHER ==
[~2019-05-01] VITALS: Ht 154.9 cm; Wt 41.5 kg
[~2019-05-01 15:48] MED LIST changes: +HYDROXYCHLOROQ200 M1 PO
--- NOTE | 2019-05-01 16:00 | NUR ---
ED Nurse Note: Patient walked into ED from home accompanied by her daughter due to weakness that started around 1300 today. daughter reports patient has been losing appetite these days. patient is alert awake x4 ambulatory steady gait, breathing unlabored and even. Assisted patient into hospital gown and placed on a fermentation scientist. patient c/o no pain except slight headache at this time.
[2019-05-01 16:13] VITALS: BP 111/52
[2019-05-01] MEDS ORDERED: Ketorolac 30mg Inj IV ONE (16:15)
--- NOTE | 2019-05-01 16:19 | Emergency Room Report ---
History of Present Illness General Chief Complaint: Generalized Weakness Source: Patient Present Illness HPI Disclaimer: Please note that this report is being documented using DRAGON technology. This can lead to erroneous entry secondary to incorrect interpretation by the dictating instrument. HPI: 73-year-old female with a history of rheumatoid arthritis and former pulmonary MAC presents for evaluation of weakness and headache. Patient was recently discharged from this hospital 5 days ago after an acute kidney injury was treated. She has not been eating well since discharge things as she has no appetite. He has been feeling weak over the past few days and today developed right-sided flank pain and right lower quadrant pain. She denies pain with urination, hematuria, changes in bowel habits, diarrhea. Denies any upper abdominal pain or discomfort. No injury. She notes a generalized headache that is a 3/10 intensity without visual changes, no photophobia, denies neck pain, denies rash, denies fevers. Brought in for evaluation of lightheadedness and generalized fatigue PMH: Mycobacterium avium complex infection, pneumonia, RA PSH: See chart Allergies: Denies Social Hx: Denies tobacco, drug or alcohol use Allergies: Coded Allergies: No Known Allergies (Unverified , 10/02/15) Patient History Last Menstrual Period: n/a Nursing Documentation-PMH Past Medical History: No History, Except For Hx Cardiac Problems: No Hx Cancer: No Hx Gastrointestinal Problems: Yes Hx Neurological Problems: Yes - OSTEOPOROSIS LOWER BACK, RA Review of Systems All Other Systems: negative except mentioned in HPI Physical Exam Vital Signs Date Time Temp Pulse Resp B/P (MAP) Pulse Ox O2 Delivery O2 Flow Rate FiO2 05/01/19 15:54 98.6 95 18 103/57 (72) 95 Room Air General: Awake and alert, no acute distress HEENT: NC/AT. EOMI. PERRLA. Sunken eyes, dry mucous membranes Cardiovascular: RRR, borderline tachycardia. S1 and S2 normal. No murmur appreciated Resp: Normal work of breathing. No cough, wheezing or crackles appreciated Abdomen: Abdomen is soft, nondistended. Generally nontender. Very mild tenderness in the right lower quadrant on very deep palpation. No mass appreciated. No rebound. Skin: Intact. No abrasions, laceration or rash over the exposed skin MSK: Decreased bulk, frail appearing. Moving all extremities. No obvious deformity. Neuro: Awake and alert. Mentating appropriately. Back/Spine: No midline tenderness in the cervical spine. No limitation on range of motion flexion extension. There is right-sided CVA tenderness. Medical Decision Making Diagnostic Impression: Primary Impression: ROLANDO (acute kidney injury) Additional Impressions: Episode of generalized weakness Enteritis ER Course Is a 73-year-old female presenting for evaluation of weakness since her discharge from the hospital 5 days ago. Differential includes but is not limited to dehydration, malnutrition, ACS, infection, sepsis, urinary tract infection, nephrolithiasis. We will start broad metabolic and infectious work- up. She may require readmission Laboratory Tests Test 05/01/19 16:25 White Blood Count 6.2 K/UL (4.8-10.8) Red Blood Count 3.30 M/UL (4.20-5.40) L Hemoglobin 10.2 G/DL (12.0-16.0) L Hematocrit 30.5 % (37.0-47.0) L Mean Corpuscular Volume 93 FL (80-99) Mean Corpuscular Hemoglobin 30.9 PG (27.0-31.0) Mean Corpuscular Hemoglobin Concent 33.3 G/DL (32.0-36.0) Red Cell Distribution Width 11.8 % (11.6-14.8) Platelet Count 369 K/UL (150-450) Mean Platelet Volume 4.8 FL (6.5-10.1) L Neutrophils (%) (Auto) 76.2 % (45.0-75.0) H Lymphocytes (%) (Auto) 15.4 % (20.0-45.0) L Monocytes (%) (Auto) 7.0 % (1.0-10.0) Eosinophils (%) (Auto) 0.8 % (0.0-3.0) Basophils (%) (Auto) 0.6 % (0.0-2.0) Urine Color Pale yellow Urine Appearance Clear Urine pH 6 (4.5-8.0) Urine Specific [place] 1.010 (1.005-1.035) Urine Protein 2+ (NEGATIVE) H Urine Glucose (UA) Negative (NEGATIVE) Urine Ketones Negative (NEGATIVE) Urine Blood 5+ (NEGATIVE) H Urine Nitrite Negative (NEGATIVE) Urine Bilirubin Negative (NEGATIVE) Urine Urobilinogen Normal MG/DL (0.0-1.0) Urine Leukocyte Esterase 1+ (NEGATIVE) H Urine RBC 5-10 /HPF (0 - 2) H Urine WBC 2-4 /HPF (0 - 2) Urine Squamous Epithelial Cells Few /LPF (NONE/OCC) Urine Bacteria Few /HPF (NONE) Sodium Level 137 MMOL/L (136-145) Potassium Level 5.1 MMOL/L (3.5-5.1) Chloride Level 105 MMOL/L (98-107) Carbon Dioxide Level 22 MMOL/L (21-32) Anion Gap 10 mmol/L (5-15) Blood Urea Nitrogen 58 mg/dL (7-18) H Creatinine 2.2 MG/DL (0.55-1.30) H Estimate Glomerular Filtration Rate mL/min (>60) Glucose Level 133 MG/DL (74-106) H Calcium Level 8.8 MG/DL (8.5-10.1) Phosphorus Level 4.4 MG/DL (2.5-4.9) Magnesium Level 2.3 MG/DL (1.8-2.4) Total Bilirubin 0.3 MG/DL (0.2-1.0) Aspartate Amino Transferase (AST) 18 U/L (15-37) Alanine Aminotransferase (ALT) 11 U/L (12-78) L Alkaline Phosphatase 84 U/L (46-116) Troponin I 0.000 ng/mL (0.000-0.056) Pro-B-Type Natriuretic Peptide 1401 pg/mL (0-125) H Total Protein 8.7 G/DL (6.4-8.2) H Albumin 2.9 G/DL (3.4-5.0) L Globulin 5.8 g/dL Albumin/Globulin Ratio 0.5 (1.0-2.7) L Reevaluation Time: 19:20 Last Vital Signs Date Time Temp Pulse Resp B/P (MAP) Pulse Ox O2 Delivery O2 Flow Rate FiO2 05/01/19 16:13 98.6 78 19 111/52 99 Room Air Reevaluation Impression CT scan does not show any evidence of nephrolithiasis but does show possible enteritis versus ileus. The patient's labs show an acute kidney injury again with an elevated creatinine of 2.2 and elevated BUN. Patient will require readmission. Stable for the medical floor. Disposition: ADMITTED INPATIENT Condition: Serious Eben Delcid MD May 01, 2019 16:19
--- NOTE | 2019-05-01 16:35 | NUR ---
ED Nurse Note: UA and Blood sent to lab
[2019-05-01 16:40] LABS: BASOPHILS % (AUTO) 0.6 % (0.0-2.0); EOSINOPHILS % (AUTO) 0.8 % (0.0-3.0); HEMATOCRIT 30.5 % (37.0-47.0); HEMOGLOBIN 10.2 G/DL (12.0-16.0); LYMPHOCYTES % (AUTO) 15.4 % (20.0-45.0); MEAN CORPUSCULAR VOLUME 93 FL (80-99); NEUTROPHILS % (AUTO) 76.2 % (45.0-75.0); PLATELET COUNT 369 K/UL (150-450); RED CELL DISTRIBUTION WIDTH 11.8 % (11.6-14.8); WHITE BLOOD COUNT 6.2 K/UL (4.8-10.8)
[2019-05-01 16:46] LABS: APPEARANCE,URINE CLEAR; BILIRUBIN, URINE NEGATIVE (NEGATIVE); COLOR,URINE PALE YELLOW; GLUCOSE, URINE (UA) NEGATIVE (NEGATIVE); KETONES,URINE NEGATIVE (NEGATIVE); LEUKOCYTE ESTERASE ,URINE 1+ (NEGATIVE); NITRITE,URINE NEGATIVE (NEGATIVE); PH,URINE 6 (4.5-8.0); PROTEIN,URINE 2+ (NEGATIVE); UROBILINOGEN,URINE NORMAL MG/DL (0.0-1.0)
[2019-05-01 16:54] LABS: PHOSPHORUS 4.4 MG/DL (2.5-4.9)
[2019-05-01 17:08] LABS: ALANINE AMINOTRANSFERASE 11 U/L (12-78); ALBUMIN 2.9 G/DL (3.4-5.0); ALBUMIN/GLOBULIN RATIO 0.5 (1.0-2.7); ALKALINE PHOSPHATASE 84 U/L (46-116); ANION GAP 10 mmol/L (5-15); ASPARTATE AMINO TRANSFERASE 18 U/L (15-37); BILIRUBIN,TOTAL 0.3 MG/DL (0.2-1.0); BLOOD UREA NITROGEN 58 mg/dL (7-18); CALCIUM 8.8 MG/DL (8.5-10.1); CARBON DIOXIDE 22 MMOL/L (21-32); CHLORIDE 105 MMOL/L (98-107); CREATININE 2.2 MG/DL (0.55-1.30); POTASSIUM 5.1 MMOL/L (3.5-5.1); SODIUM 137 MMOL/L (136-145)
--- NOTE | 2019-05-01 18:19 | Diagnostic Imaging Report ---
EXAM: CT Abdomen and Pelvis Without Intravenous Contrast CLINICAL HISTORY: ABD PAIN TECHNIQUE: Axial computed tomography images of the abdomen and pelvis without intravenous contrast. CTDI is 9.54 mGy and DLP is 437.75 mGy-cm. One or more of the following dose reduction techniques were used: automated exposure control, adjustment of the mA and or kV according to patient size, use of iterative reconstruction technique. COMPARISON: None FINDINGS: Evaluation of solid organs somewhat limited without IV contrast. Liver: No focal lesion. Punctate calcification in the right liver. Spleen: No focal lesion. Gallbladder: No stones or biliary dilatation. Pancreas: No acute inflammation. No mass. Adrenal glands: No mass. Kidneys: Normal. No hydronephrosis or stone. No mass. Bowel: Fluid and gas-filled small bowel loops are nonspecific but may represent enteritis or ileus in the appropriate clinical setting. Normal appendix. No bowel obstruction or inflammation. Urinary bladder: No wall thickening or mass. Reproductive organs: Unremarkable. Muscles: No mass. Subcutaneous tissues: Small fat-containing ventral hernia. Peritoneal space: Very trace amount of fluid in the posterior pelvis. Lymph nodes: No lymphadenopathy. Vessels: No aneurysm. Bones: Grade 1 anterolisthesis of L4 on L5 and L5 on S1. Osteopenia. No acute fracture or bony lesion. Lung bases: Bronchial wall thickening is concerning for bronchitis. Patchy groundglass opacities and densities in the lower lungs is concerning for an infectious inflammatory process. IMPRESSION: 1. Fluid and gas-filled small bowel loops are nonspecific but may represent enteritis or ileus in the appropriate clinical setting. 2. Bronchial wall thickening is concerning for bronchitis. Patchy groundglass opacities and densities in the lower lungs is concerning for an infectious inflammatory process.
[2019-05-01 19:07] VITALS: BP 119/68
--- NOTE | 2019-05-01 19:07 | NUR ---
ED Nurse Note: MRSA and VRE/CRE swabs collected.
--- NOTE | 2019-05-01 19:40 | NUR ---
HAND-OFF: Report given to Lesly CASTRO. patient is stable in bed, in no acute distress.
--- NOTE | 2019-05-01 20:00 | NUR ---
ED Nurse Note: Recieved report from am nurse to resume care, pt in bed awake, alert and orientd x 4, pt daughter at bedside, on cardiac monitoring, saline lock intact and patent, pt waiting for room for admission, pt states no pain at rest only during urination, will resume care as ordered and continue to closely monitor.
--- NOTE | 2019-05-01 21:10 | NUR ---
ED Nurse Note: Pt being admitted to hospital, report called to floor nurse ThangRN, pt daughter at bedside, pt denies pain, iv site patent, nad noted during pt transport to floor bed for admisison via gurney with -tech.
--- NOTE | 2019-05-01 21:30 | NUR ---
NURSE NOTES: Admitted 73 year old female patient from ER Dx with acute kidney injury, transported via gurney in stable condition under Dr Herrera.Report received from [facility]. Patient is alert, oriented, ambulatory and Swedish speaking. No acute distress noted.Vitas stable. Pt's son by bedside. Denies pain at this moment.Patient is full code. IV on right upper arm patent and intact. Introduced patient to the unit. Admission assessment done. Skin is intact.Patient has no belongings. Patient's son to take the belongings to home. Board updated. Bed in low and locked position. Call light within reach.Bed alarm on. Dr. Herrera will be called for admitting orders. Pt will be monitored.
[2019-05-01 22:14] VITALS: BP 102/52
[2019-05-01] MEDS ORDERED: Miralax 17gm pkt ORAL PRN (23:15)
[2019-05-01] MEDS ORDERED: LORazepam Inj 2mg/ml 1ml IV PRN (23:15)
[2019-05-01] MEDS ORDERED: Morphine Sulfate 2mg/ml Inj(IV/IM USE ONLY) IVP PRN (23:15)
[2019-05-01] MEDS ORDERED: Zolpidem 5mg tab ORAL PRN (23:15)
--- NOTE | 2019-05-01 23:20 | NUR ---
NURSE NOTES: Admission orders received from Dr Perez,orders acknowledged. Pt is calm in bed. No acute distress noted. Orders will be carried out.
--- NOTE | 2019-05-01 23:39 | NUR ---
NURSE NOTES: Pt is in bed, awake and alert. Vitals stable. No acute distress noted. Pt's son by bedside. No pain at this time. Admitting orders received from Dr. Perez. Orders will be carried out. Fall precaution in place. Trainee Alina Prince RN will be assisting in the care.
[2019-05-02] VITALS: BP 105/64
[2019-05-02 04:00] VITALS: BP 112/57
--- NOTE | 2019-05-02 07:15 | NUR ---
HAND-OFF: Report given to Eliud Gamez RN.Pt is in stable condition, awake and alert.
[2019-05-02 07:17] LABS: HEMATOCRIT 25.8 % (37.0-47.0); HEMOGLOBIN 8.6 G/DL (12.0-16.0); MEAN CORPUSCULAR VOLUME 93 FL (80-99); PLATELET COUNT 340 K/UL (150-450); RED BLOOD COUNT 2.79 M/UL (4.20-5.40); RED CELL DISTRIBUTION WIDTH 11.8 % (11.6-14.8); WHITE BLOOD COUNT 3.3 K/UL (4.8-10.8)
[2019-05-02 07:48] LABS: ALANINE AMINOTRANSFERASE 11 U/L (12-78); ALBUMIN 2.2 G/DL (3.4-5.0); ALBUMIN/GLOBULIN RATIO 0.5 (1.0-2.7); ALKALINE PHOSPHATASE 62 U/L (46-116); ANION GAP 8 mmol/L (5-15); ASPARTATE AMINO TRANSFERASE 17 U/L (15-37); BILIRUBIN,TOTAL 0.3 MG/DL (0.2-1.0); BLOOD UREA NITROGEN 49 mg/dL (7-18); CARBON DIOXIDE 22 MMOL/L (21-32); CHLORIDE 112 MMOL/L (98-107); CHOLESTEROL 100 MG/DL (< 200); CREATININE 1.9 MG/DL (0.55-1.30); HDL CHOLESTEROL 27 MG/DL (40-60); POTASSIUM 4.8 MMOL/L (3.5-5.1); SODIUM 142 MMOL/L (136-145); TRIGLYCERIDES 80 MG/DL (30-150)
[2019-05-02 08:00] VITALS: BP 115/53
--- NOTE | 2019-05-02 08:00 | NUR ---
NURSE NOTES: Pt awake/alert in bed, breathing easily on room air, denies SOB and denies pain at this time. Vital signs stable. IV access left forearm flushed with 10 ml NS and locked. Son is rooming in. Bed left in low position, side rails up x 2 and call light left near p's hand.
--- NOTE | 2019-05-02 09:21 | Consultation ---
History of Present Illness General Date patient seen: May 02, 2019 Time patient seen: 09:00 Chief Complaint: weakness Referring physician: Dr Herrera Reason for Consultation: hospitalist Present Illness HPI 73 years old female with PMH of rheumatoid arthritis, pulmonary MAC, multidrug- resistant pneumonia, osteoporosis, recent hospitalization for acute kidney injury, was brought back by her family for evaluation. Patient apparently did not feel well, had a headache, right-sided flank pain and right lower quadrant abdominal pain. Patient reported intermittent dry cough no wheezing, no hemoptysis. No fever no chills,. No shortness of breath, no chest pain. No dizziness, no blackouts. Patient reported poor appetite. Patient admitted to nausea, but no vomiting, no diarrhea. Upon evaluation vital signs were stable. Laboratory work-up revealed no leukocytosis, hemoglobin 10.2, hematocrit 30.5, platelet count 369. Urinalysis revealed +2 protein, +1 leukocyte esterase. Stable electrolytes. BUN 58, Creatinine 2.2. Stable LFT. Troponin negative. pro BNP 142. Albumin 2.9. CT scan of abdomen revealed evidence of fluid and gas filled small bowel loops , nonspecific , possibly representing enteritis or ileus. Bronchial wall thickening , concerning for bronchitis. Patchy groundglass opacity and density in the lower lobe , concerning for infectious inflammatory process. Allergies: Coded Allergies: No Known Allergies (Unverified , 10/02/15) Medication History Scheduled Alendronate Sodium* (Fosamax*), Unknown Dose ORAL DAILY, (Reported) Aspirin* (Aspir 81*), 81 MG ORAL DAILY, (Reported) Miscellaneous Medications Calcium Carbonate (Calcium), 500 MG PO, (Reported) Hydroxychloroquine Sulfate (Hydroxychloroquine Sulfate), 200 MG PO, (Reported) Ibuprofen* (Advil*), Unknown Dose ORAL, (Reported) Discontinued Medications Methylprednisolone (Methylprednisolone*), 4 MG ORAL DIRECTED, (Reported) Discontinued Reason: MD discontinued med Patient History Healthcare decision maker Resuscitation status Full Code Advanced Directive on File Past Medical/Surgical History Past Medical/Surgical History: (1) Anemia (2) CHF (congestive heart failure) (3) Dehydration (4) Purulent bronchitis (5) TEGAN (mycobacterium avium-intracellulare) (6) Severe protein-calorie malnutrition (7) ROLANDO (acute kidney injury) (8) Emphysema lung Review of Systems Constitutional: Reports: weakness Eye: Reports: no symptoms ENT: Reports: no symptoms Respiratory: Reports: cough - dry, no hemoptysis, no wheezing Cardiovascular: Reports: no symptoms Gastrointestinal: Reports: other - abd pain, nausea, no vomiting, no diarrhea Genitourinary: Reports: other - R flank pain Skin: Reports: other - hx of RA Psychiatric: Reports: no symptoms Neurological: Reports: no symptoms Endocrine: Reports: no symptoms Hematologic/Lymphatic: Reports: anemia Physical Exam General Appearance: no apparent distress, cachetic, alert oriented x3 Lines, tubes and drains: peripheral HEENT: normocephalic, atraumatic, anicteric, mucous membranes moist, PERRL Neck: non-tender, supple Respiratory/Chest: lungs clear - with moderate air exchange , no respiratory distress, no accessory muscle use Cardiovascular/Chest: normal rate, no JVD Abdomen: normal bowel sounds, soft Extremities: normal range of motion, non-tender, no calf tenderness, normal capillary refill Skin Exam: normal pigmentation, warm/dry Neurologic: no motor/sensory deficits, alert, oriented x 3, responsive Musculoskeletal: normal muscle bulk Last 24 Hour Vital Signs Date Time Temp Pulse Resp B/P (MAP) Pulse Ox O2 Delivery O2 Flow Rate FiO2 05/02/19 08:06 Room Air 05/02/19 04:00 97.8 55 20 112/57 (75) 96 05/02/19 00:32 Room Air 05/02/19 00:00 98.0 68 16 105/64 (78) 96 05/01/19 22:14 97.6 69 18 102/52 (69) 96 05/01/19 21:20 98.6 92 20 119/68 97 Room Air 05/01/19 19:07 98.6 92 20 119/68 97 Room Air 05/01/19 18:07 98.6 05/01/19 16:35 78 19 Room Air 05/01/19 16:13 98.6 78 19 111/52 99 Room Air 05/01/19 15:54 98.6 95 18 103/57 (72) 95 Room Air Laboratory Tests Test 05/01/19 16:25 05/02/19 06:00 White Blood Count 6.2 K/UL (4.8-10.8) 3.3 K/UL (4.8-10.8) L Red Blood Count 3.30 M/UL (4.20-5.40) L 2.79 M/UL (4.20-5.40) L Hemoglobin 10.2 G/DL (12.0-16.0) L 8.6 G/DL (12.0-16.0) L Hematocrit 30.5 % (37.0-47.0) L 25.8 % (37.0-47.0) L Mean Corpuscular Volume 93 FL (80-99) 93 FL (80-99) Mean Corpuscular Hemoglobin 30.9 PG (27.0-31.0) 30.9 PG (27.0-31.0) Mean Corpuscular Hemoglobin Concent 33.3 G/DL (32.0-36.0) 33.4 G/DL (32.0-36.0) Red Cell Distribution Width 11.8 % (11.6-14.8) 11.8 % (11.6-14.8) Platelet Count 369 K/UL (150-450) 340 K/UL (150-450) Mean Platelet Volume 4.8 FL (6.5-10.1) L 5.0 FL (6.5-10.1) L Neutrophils (%) (Auto) 76.2 % (45.0-75.0) H % (45.0-75.0) Lymphocytes (%) (Auto) 15.4 % (20.0-45.0) L % (20.0-45.0) Monocytes (%) (Auto) 7.0 % (1.0-10.0) % (1.0-10.0) Eosinophils (%) (Auto) 0.8 % (0.0-3.0) % (0.0-3.0) Basophils (%) (Auto) 0.6 % (0.0-2.0) % (0.0-2.0) Urine Color Pale yellow Urine Appearance Clear Urine pH 6 (4.5-8.0) Urine Specific [place] 1.010 (1.005-1.035) Urine Protein 2+ (NEGATIVE) H Urine Glucose (UA) Negative (NEGATIVE) Urine Ketones Negative (NEGATIVE) Urine Blood 5+ (NEGATIVE) H Urine Nitrite Negative (NEGATIVE) Urine Bilirubin Negative (NEGATIVE) Urine Urobilinogen Normal MG/DL (0.0-1.0) Urine Leukocyte Esterase 1+ (NEGATIVE) H Urine RBC 5-10 /HPF (0 - 2) H Urine WBC 2-4 /HPF (0 - 2) Urine Squamous Epithelial Cells Few /LPF (NONE/OCC) Urine Bacteria Few /HPF (NONE) Sodium Level 137 MMOL/L (136-145) 142 MMOL/L (136-145) Potassium Level 5.1 MMOL/L (3.5-5.1) 4.8 MMOL/L (3.5-5.1) Chloride Level 105 MMOL/L (98-107) 112 MMOL/L (98-107) H Carbon Dioxide Level 22 MMOL/L (21-32) 22 MMOL/L (21-32) Anion Gap 10 mmol/L (5-15) 8 mmol/L (5-15) Blood Urea Nitrogen 58 mg/dL (7-18) H 49 mg/dL (7-18) H Creatinine 2.2 MG/DL (0.55-1.30) H 1.9 MG/DL (0.55-1.30) H Estimat Glomerular Filtration Rate mL/min (>60) mL/min (>60) Glucose Level 133 MG/DL (74-106) H 89 MG/DL (74-106) Calcium Level 8.8 MG/DL (8.5-10.1) 8.0 MG/DL (8.5-10.1) L Phosphorus Level 4.4 MG/DL (2.5-4.9) Magnesium Level 2.3 MG/DL (1.8-2.4) Total Bilirubin 0.3 MG/DL (0.2-1.0) 0.3 MG/DL (0.2-1.0) Aspartate Amino Transf (AST/SGOT) 18 U/L (15-37) 17 U/L (15-37) Alanine Aminotransferase (ALT/SGPT) 11 U/L (12-78) L 11 U/L (12-78) L Alkaline Phosphatase 84 U/L (46-116) 62 U/L (46-116) Troponin I 0.000 ng/mL (0.000-0.056) Pro-B-Type Natriuretic Peptide 1401 pg/mL (0-125) H Total Protein 8.7 G/DL (6.4-8.2) H 7.0 G/DL (6.4-8.2) Albumin 2.9 G/DL (3.4-5.0) L 2.2 G/DL (3.4-5.0) L Globulin 5.8 g/dL 4.8 g/dL Albumin/Globulin Ratio 0.5 (1.0-2.7) L 0.5 (1.0-2.7) L Differential Total Cells Counted 100 Neutrophils % (Manual) 64 % (45-75) Lymphocytes % (Manual) 26 % (20-45) Monocytes % (Manual) 7 % (1-10) Eosinophils % (Manual) 3 % (0-3) Basophils % (Manual) 0 % (0-2) Band Neutrophils 0 % (0-8) Platelet Estimate Adequate Platelet Morphology Normal Red Blood Cell Morphology Normal Triglycerides Level 80 MG/DL (30-150) Cholesterol Level 100 MG/DL (< 200) LDL Cholesterol 62 mg/dL (<100) HDL Cholesterol 27 MG/DL (40-60) L Cholesterol/HDL Ratio 3.7 (3.3-4.4) Thyroid Stimulating Hormone (TSH) 3.266 uiU/mL (0.358-3.740) Microbiology Date/Time Source Procedure Growth Status 05/01/19 19:05 Rectum Received Height (Feet): 5 Height (Inches): 1.00 Weight (Pounds): 85 Medications Current Medications Medications (Trade) Dose Ordered Sig/Floyd Route PRN Reason Start Time Stop Time Status Last Admin Dose Admin Acetaminophen (Tylenol) 650 mg Q4H PRN ORAL fever 05/01/19 23:15 05/31/19 23:14 Dextrose (Dextrose 50%) 25 ml Q30M PRN IV Hypoglycemia 05/01/19 23:15 05/31/19 23:14 Dextrose (Dextrose 50%) 50 ml Q30M PRN IV Hypoglycemia 05/01/19 23:15 05/31/19 23:14 Lorazepam (Ativan 2mg/ml 1ml) 0.5 mg Q4H PRN IV For Anxiety 05/01/19 23:15 05/08/19 23:14 Morphine Sulfate (Morphine Sulfate) 1 mg Q4H PRN IVP For Pain 05/01/19 23:15 05/08/19 23:14 Ondansetron HCl (Zofran) 4 mg Q6H PRN IVP Nausea & Vomiting 05/01/19 23:15 05/31/19 23:14 Polyethylene Glycol (Miralax) 17 gm HSPRN PRN ORAL Constipation 05/01/19 23:15 05/31/19 23:14 Zolpidem Tartrate (Ambien) 5 mg HSPRN PRN ORAL Insomnia 05/01/19 23:15 05/08/19 23:14 Assessment/Plan Assessment/Plan: ASSESSMENT ROLANDO bronchitis abdominal pain and nausea, possibly enteritis ( by CT scan) anemia RA protein calorie malnutrition PLAN OF CARE IVF monitor renal parameters, lytes, correct lytes prn, creat slowly trended down, Venous Duplex O2 HHN prn a/tussive prn doubt PNA, giving no fever, no leukocytosis, no SOB, likely bronchitis superimposed on chronic lung disease pain management symptomatic care bowel regimen anemia w/up monitor HH with goal to keep Hgb abiove 7 GI specialist follows outpt colonoscopy/screening -never had one dietary eval case discussed and evaluated by supervising physician Nora Hinojosa NP May 02, 2019 09:21
--- NOTE | 2019-05-02 11:15 | Consultation ---
DATE OF CONSULTATION: 05/02/2019 CONSULTING PHYSICIAN: Kleber Skaggs M.D. CHIEF COMPLAINT: Abdominal pain. HISTORY OF PRESENT ILLNESS: This is a very pleasant 73-year-old female with past medical history of osteoporosis, rheumatoid arthritis, pulmonary MAC, multidrug-resistant pneumonia, recent discharge from the hospital with acute kidney injury, who was brought back with her family because the patient was not feeling well, felt weak, was not eating well, and was brought back to the hospital. PAST MEDICAL HISTORY: 1. History of osteoporosis. 2. Rheumatoid arthritis. 3. Pulmonary MAC. 4. Multidrug-resistant pneumonia. 5. Recent acute kidney injury. 6. Anemia. ALLERGIES: No known drug allergies. MEDICATIONS: Please see medication reconciliation list. FAMILY HISTORY: Noncontributory. REVIEW OF SYSTEMS: A 10-point review of systems was performed and pertinent positives in HPI. PHYSICAL EXAMINATION: VITAL SIGNS: Most recent vital signs, temperature is 97.8, pulse 65, respirations 20, and blood pressure is 112/57. HEENT: Normocephalic and atraumatic. Sclerae anicteric. NECK: Supple. No evidence of obvious lymphadenopathy. CARDIOVASCULAR: Regular rate and rhythm. Plus S1 and S2. No obvious murmur. LUNGS: Decreased breath sounds bilaterally at bases on the supine exam. ABDOMEN: Soft and nontender. No rebound. No guarding. No peritoneal sign. EXTREMITIES: No cyanosis. No clubbing. No edema. NEUROLOGIC: Nonfocal. LABORATORY DATA: White count of 6.2, hemoglobin 10, hematocrit 30, platelet count is 369,000. Sodium is 140, potassium 5.4, creatinine is 1.9, BUN is 48. Iron saturation is 23. IMAGING STUDIES: The patient had a CT of the abdomen and pelvis done in the emergency room without contrast, which showed fluid and gas filled small bowel, nonspecific enteritis or ileus, bronchial wall thickening concerning for bronchitis. ASSESSMENT AND PLAN: This is a very pleasant 73-year-old female admitted to the hospital with weakness, not eating well. GI-eason, the patient does not have any nausea, vomiting, or abdominal pain at this time, no dysphagia, no odynophagia. The patient actually was eating very well at the bedside with the son and I examined her and I was talking to her. According to the son, she had a bowel movement yesterday in the ER, no blood. The patient never had a colonoscopy before. No significant weight loss recently though. Our plan will be to do anemia workup and send CEA, iron panel, B12, folate, vitamin D. I will send the stool for occult blood. Hold off her GI procedures at this time. I gave the patient's son my business card to call my office to follow as an outpatient for her screening colonoscopy. Meanwhile, the patient needs to be seen by Nephrology for kidney issues. I want to thank Dr. Isaak Herrera for this kind referral. Kleber Skaggs M.D. DR: ARMANDO JOB#: [id number] CC: Isaak eHrrera D.O.
[2019-05-02 12:00] VITALS: BP 110/61
[2019-05-02 16:00] VITALS: BP 95/54
--- NOTE | 2019-05-02 17:02 | NUR ---
CASE MANAGEMENT: INITIAL REVIEW 73 YO F PRESENTED TO OUR ED FROM HOME CC: GEN WEAKNESS. PMHx: PNA. RA. SI:ACUTE KIDNEY INJURY. T 98.6 HR 95 RR 18 B/P 103/57 SATS 95% ON RA BUN 58 CR 2.2 GLU 133 ALT 11 BNP 1401 IS: NS BOLUS X2 TORADOL IV X1 PATIENT ADMITTED TO MED/SURG 05/01/2019 @ 2050 DCP: PATIENT TO BE DISCHARGED TO HOME ONCE MEDICALLY CLEARED. PLAN OF CARE: GI CONSULT Addendum: 05/02/19 at 1828 by Karuna Granados CM INTER[employer] MET
--- NOTE | 2019-05-02 17:07 | NUR ---
DISCHARGE PLANNING: NOTE CLINICALS FAXED TO [facility] T: [phone] F: [phone] PT EVAL PENDING
--- NOTE | 2019-05-02 17:30 | NUR ---
HAND-OFF: Report given to Sulma.
--- NOTE | 2019-05-02 18:15 | Consultation ---
DATE OF CONSULTATION: 05/02/2019 CONSULTING PHYSICIAN: Vicente Rolle M.D. REASON FOR CONSULTATION: 1. Acute kidney injury. 2. Dehydration. HISTORY OF PRESENT ILLNESS: The patient is a 73-year-old female admitted overnight complaining of generalized weakness and not feeling well. She was found to have elevated creatinine 2.2. The patient states she has not been eating or drinking well with a poor appetite and feeling fatigued. She was hydrated overnight. Creatinine currently 1.9. PAST MEDICAL HISTORY: 1. Mycobacterium avium complex infection. 2. Pneumonia. 3. RA. ALLERGIES: No known drug allergies. PAST SURGICAL HISTORY: Noncontributory. SOCIAL HISTORY: No tobacco, alcohol, or illicit drug use. FAMILY HISTORY: Positive for hypertension and diabetes. REVIEW OF SYSTEMS: NEUROLOGIC: The patient denies headaches, change in vision, syncope, or presyncopal episodes. CARDIOVASCULAR: No current chest pain, palpitations, or angina. PULMONARY: No difficulty breathing, productive cough, or sputum. GASTROINTESTINAL/GENITOURINARY: No nausea, vomiting, or diarrhea. ENDOCRINOLOGY: No night sweats, fevers, or chills. MUSCULOSKELETAL: The patient is feeling weak, tired, and fatigued. PHYSICAL EXAMINATION: VITAL SIGNS: Blood pressure 115/53, respiratory rate 18, pulse 59, and temperature 97.8. 97% oxygen saturation on room air. GENERAL: The patient is awake and alert, not in distress. HEENT: Extraocular muscles intact. No lymphadenopathy noted. CARDIOVASCULAR: S1, S2. No rubs or gallops. PULMONARY: Clear to auscultation bilaterally. No rales, rhonchi, or wheezes. ABDOMEN: Nondistended and nontender. EXTREMITIES: No edema. LABORATORY DATA: Labs dated May 02, 2019 - sodium 142, potassium 4.8, creatinine 1.9. Hemoglobin 8.6, white cell count 3.3, and platelet count 340,000. ASSESSMENT AND PLAN: 1. 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 This time most likely secondary to prerenal, intravascular volume depletion. We will continue IV fluids. Avoid NSAIDs such as ketorolac. Continue to monitor renal function. 2. Generalized weakness. Continue IV hydration and aggressive nutrition. 3. Dehydration. We will continue IV fluids. Vicente Rolle MD DR: CONNIE JOB#: [id number] CC:
--- NOTE | 2019-05-02 19:44 | NUR ---
NURSE NOTES: Received report from Karuna novoa RN and GLORIA Paredes. Patient is in bed, awake and able to make needs known. Family is at bedside. On room air with no signs of distress or SOB. No c/o pain at this time. IV intact and running fluids. Bed locked and in lowest position. Call light within easy reach. Will continue to monitor the patient.
[2019-05-02 20:00] VITALS: BP 102/55
--- NOTE | 2019-05-02 21:45 | History and Physical Report ---
DATE OF ADMISSION: 05/01/2019 TIME SEEN: At 3 p.m. CONSULTANTS: 1. Stephan Perez M.D. 2. Kleber Skaggs M.D. 3. Isma Unger M.D. CHIEF COMPLAINT: Weakness, lethargy, abdominal pain, and cough. BRIEF HISTORY: This is a 73-year-old female, hospitalized about three days ago with above-mentioned diagnosis, apparently fell worse, was weak, lethargic, coughing, complaining of abdominal pain, came to [facility] again, diagnosed with ROLANDO, cough, weakness, abdominal pain, failure to thrive, and admitted to medical floor for further treatment. Currently, sitting calm and feeling a little better, no complaint. REVIEW OF SYSTEMS: No chest pain. Slight short of breath. Slight nausea. No vomiting. No diarrhea. PAST MEDICAL HISTORY: Includes respiratory failure, CHF, renal failure, weakness, and malnutrition. PAST SURGICAL HISTORY: Unknown. MEDICATIONS: Morphine, Zofran, zolpidem, lorazepam, and ketorolac. ALLERGIES: Denies. SOCIAL HISTORY: No smoking. No alcohol. No intravenous drug abuse. FAMILY HISTORY: Noncontributory. PHYSICAL EXAMINATION: GENERAL: Sitting in chair, calm, slightly weak, and slight short of breath. VITAL SIGNS: Temperature is 97 degrees, pulse is 90, respirations 17, and blood pressure 110/61. CARDIOVASCULAR: No murmurs. LUNGS: Poor air exchange. ABDOMEN: Bowel sounds positive. Nontender. Nondistended. EXTREMITIES: No cyanosis, clubbing, or edema. NEUROLOGIC: The patient is weak in bed, not talking much. LABORATORY DATA: White count 3.3, H and H 8.6/25, and platelets 340,000. BMP shows chloride 112, BUN and creatinine 49 and 1.9, glucose 89, and albumin 2.2. Urinalysis, 1+ leukocyte esterase. PLAN: 1. PT. 2. Dietary evaluation. 3. IV fluids. 4. Nephrology followup. 5. Antibiotics p.r.n. 6. We will continue to follow the patient. 7. Resume home medications. 8. CBC and BMP in the morning. Isaak Herrera D.O. DR: BHARAT JOB#: [id number] CC:
[2019-05-03] VITALS: BP 114/49
[2019-05-03 04:00] VITALS: BP 132/71
--- NOTE | 2019-05-03 06:45 | General Progress Note ---
Assessment/Plan Assessment/Plan: 1. History of osteoporosis. 2. Rheumatoid arthritis. 3. Pulmonary MAC. 4. Multidrug-resistant pneumonia. 5. Recent acute kidney injury. 6. Anemia sig drop in H&H d/w the patient and her son plan EGD and colonoscopy for tomorrow Subjective ROS Limited/Unobtainable: Yes Allergies: Coded Allergies: No Known Allergies (Unverified , 10/02/15) Objective Last 24 Hour Vital Signs Date Time Temp Pulse Resp B/P (MAP) Pulse Ox O2 Delivery O2 Flow Rate FiO2 05/03/19 04:00 97.8 66 20 132/71 (91) 97 05/03/19 00:00 97.6 70 18 114/49 (70) 95 05/02/19 21:00 Room Air 05/02/19 20:00 97.7 70 18 102/55 (71) 98 05/02/19 16:00 98.1 67 18 95/54 (68) 98 05/02/19 12:00 97.8 69 17 110/61 (77) 95 05/02/19 08:06 Room Air 05/02/19 08:00 97.8 59 18 115/53 (73) 97 59 Intake and Output 05/02/19 05/03/19 19:00 07:00 Intake Total 1025 ml 750 ml Balance 1025 ml 750 ml Intake IV Total 225 ml 750 ml Other 800 ml # Voids 1 Laboratory Tests 05/02/19 12:45: Stool Occult Blood [Pending] Height (Feet): 5 Height (Inches): 1.00 Weight (Pounds): 85 General Appearance: alert EENT: normal ENT inspection Neck: supple Cardiovascular: normal rate Respiratory/Chest: decreased breath sounds Abdomen: normal bowel sounds, non tender, soft Extremities: non-tender Kleber Skaggs MD May 03, 2019 06:45
--- NOTE | 2019-05-03 07:09 | NUR ---
HAND-OFF: Report given to GLORIA Giron.
[2019-05-03 07:53] LABS: BASOPHILS % (AUTO) 0.9 % (0.0-2.0); EOSINOPHILS % (AUTO) 2.2 % (0.0-3.0); HEMATOCRIT 26.3 % (37.0-47.0); HEMOGLOBIN 8.7 G/DL (12.0-16.0); LYMPHOCYTES % (AUTO) 25.6 % (20.0-45.0); MEAN CORPUSCULAR VOLUME 93 FL (80-99); MONOCYTES % (AUTO) 8.9 % (1.0-10.0); NEUTROPHILS % (AUTO) 62.3 % (45.0-75.0); PLATELET COUNT 348 K/UL (150-450); RED BLOOD COUNT 2.82 M/UL (4.20-5.40); RED CELL DISTRIBUTION WIDTH 12.1 % (11.6-14.8); WHITE BLOOD COUNT 3.6 K/UL (4.8-10.8)
[2019-05-03 08:00] VITALS: BP 103/51
[2019-05-03 08:12] LABS: ALANINE AMINOTRANSFERASE 12 U/L (12-78); ALBUMIN 2.2 G/DL (3.4-5.0); ALBUMIN/GLOBULIN RATIO 0.4 (1.0-2.7); ALKALINE PHOSPHATASE 67 U/L (46-116); ANION GAP 9 mmol/L (5-15); ASPARTATE AMINO TRANSFERASE 18 U/L (15-37); BILIRUBIN,TOTAL 0.2 MG/DL (0.2-1.0); BLOOD UREA NITROGEN 45 mg/dL (7-18); CALCIUM 8.4 MG/DL (8.5-10.1); CARBON DIOXIDE 21 MMOL/L (21-32); CHLORIDE 114 MMOL/L (98-107); CHOLESTEROL 106 MG/DL (< 200); CREATININE 1.7 MG/DL (0.55-1.30); HDL CHOLESTEROL 27 MG/DL (40-60); POTASSIUM 4.9 MMOL/L (3.5-5.1); SODIUM 144 MMOL/L (136-145); TRIGLYCERIDES 84 MG/DL (30-150)
--- NOTE | 2019-05-03 09:42 | General Progress Note ---
Assessment/Plan Problem List: (1) Malnutrition ICD Codes: E46 - Unspecified protein-calorie malnutrition SNOMED: 70388791 (2) UTI (urinary tract infection) ICD Codes: N39.0 - Urinary tract infection, site not specified SNOMED: 06648030 (3) SOB (shortness of breath) ICD Codes: R06.02 - Shortness of breath SNOMED: 113939893 (4) Cough ICD Codes: R05 - Cough SNOMED: 50993975 (5) Renal failure (ARF), acute on chronic ICD Codes: N17.9 - Acute kidney failure, unspecified; N18.9 - Chronic kidney disease, unspecified SNOMED: 031401738 (6) Episode of generalized weakness ICD Codes: R53.1 - Weakness SNOMED: 36036438 (7) CHF (congestive heart failure) ICD Codes: I50.9 - Heart failure, unspecified SNOMED: 06398609 Status: stable, progressing Assessment/Plan: pt diet abx cbc bmp am aru eval Subjective Constitutional: Reports: weakness Allergies: Coded Allergies: No Known Allergies (Unverified , 10/02/15) All Systems: reviewed and negative except above Subjective waling in dahl sl weak Objective Last 24 Hour Vital Signs Date Time Temp Pulse Resp B/P (MAP) Pulse Ox O2 Delivery O2 Flow Rate FiO2 05/03/19 04:00 97.8 66 20 132/71 (91) 97 05/03/19 00:00 97.6 70 18 114/49 (70) 95 05/02/19 21:00 Room Air 05/02/19 20:00 97.7 70 18 102/55 (71) 98 05/02/19 16:00 98.1 67 18 95/54 (68) 98 05/02/19 12:00 97.8 69 17 110/61 (77) 95 Intake and Output 05/02/19 05/03/19 19:00 07:00 Intake Total 1025 ml 750 ml Balance 1025 ml 750 ml Intake IV Total 225 ml 750 ml Other 800 ml # Voids 1 Laboratory Tests 05/02/19 12:45: Stool Occult Blood Negative 05/03/19 06:40: White Blood Count 3.6L, Red Blood Count 2.82L, Hemoglobin 8.7L, Hematocrit 26.3L , Mean Corpuscular Volume 93, Mean Corpuscular Hemoglobin 30.8, Mean Corpuscular Hemoglobin Concent 33.0, Red Cell Distribution Width 12.1, Platelet Count 348, Mean Platelet Volume 5.1L, Neutrophils (%) (Auto) 62.3, Lymphocytes ( %) (Auto) 25.6, Monocytes (%) (Auto) 8.9, Eosinophils (%) (Auto) 2.2, Basophils (%) (Auto) 0.9, Sodium Level 144, Potassium Level 4.9, Chloride Level 114H, Carbon Dioxide Level 21, Anion Gap 9, Blood Urea Nitrogen 45H, Creatinine 1.7H, Estimat Glomerular Filtration Rate , Glucose Level 87, Lactic Acid Level 0.70, Calcium Level 8.4L, Phosphorus Level 4.0, Magnesium Level 1.8, Total Bilirubin 0.2, Aspartate Amino Transf (AST/SGOT) 18, Alanine Aminotransferase (ALT/SGPT) 12, Alkaline Phosphatase 67, Total Protein 7.2, Albumin 2.2L, Globulin 5.0, Albumin/Globulin Ratio 0.4L, Triglycerides Level 84, Cholesterol Level 106, LDL Cholesterol 65, HDL Cholesterol 27L, Cholesterol/HDL Ratio 3.9, Carcinoembryonic Antigen [Pending], Vitamin B12 Level 583, Vitamin D 25-Hydroxy [Pending], 25-Hydroxy Vitamin D2 [Pending], 25-Hydroxy Vitamin D3 [Pending], Folate 11.4 Height (Feet): 5 Height (Inches): 1.00 Weight (Pounds): 85 General Appearance: lethargic EENT: normal ENT inspection Neck: normal alignment Cardiovascular: normal peripheral pulses, normal rate, regular rhythm Respiratory/Chest: chest wall non-tender, lungs clear, normal breath sounds Abdomen: normal bowel sounds, non tender, soft Extremities: normal inspection Edema: no edema noted Arm (L), no edema noted Arm (R), no edema noted Leg (L), no edema noted Leg (R), no edema noted Pedal (L), no edema noted Pedal (R), no edema noted Generalized Neurologic: responsive, motor weakness Skin: normal pigmentation, warm/dry Isaak Herrera DO May 03, 2019 09:42
[2019-05-03] MEDS: cefTRIAXone 1 GM in D5W 55 ML IVPB SCH (09:56)
--- NOTE | 2019-05-03 10:21 | Pulmonology Progress Note ---
Assessment/Plan Assessment/Plan ASSESSMENT ROLANDO bronchitis abdominal pain and nausea, possibly enteritis ( by CT scan) anemia RA protein calorie malnutrition PLAN OF CARE IVF monitor renal parameters, lytes, correct lytes prn, creat trending down, continue hydration clinically improving Venous Duplex O2 HHN prn a/tussive prn doubt PNA, giving no fever, no leukocytosis, no SOB, likely bronchitis superimposed on chronic lung disease pain management symptomatic care bowel regimen anemia w/up stool OB negative, CEA pending monitor HH with goal to keep Hgb above 7 GI specialist follows outpt colonoscopy/screening -never had one dietary eval case discussed and evaluated by supervising physician Subjective Allergies: Coded Allergies: No Known Allergies (Unverified , 10/02/15) Subjective ambulated in hallway, feeling stronger appetite better creat trending down to 1.7 cough intermittent dry, no wheezing, no hemoptysis Objective Last 24 Hour Vital Signs Date Time Temp Pulse Resp B/P (MAP) Pulse Ox O2 Delivery O2 Flow Rate FiO2 05/03/19 04:00 97.8 66 20 132/71 (91) 97 05/03/19 00:00 97.6 70 18 114/49 (70) 95 05/02/19 21:00 Room Air 05/02/19 20:00 97.7 70 18 102/55 (71) 98 05/02/19 16:00 98.1 67 18 95/54 (68) 98 05/02/19 12:00 97.8 69 17 110/61 (77) 95 Intake and Output 05/02/19 05/03/19 19:00 07:00 Intake Total 1025 ml 750 ml Balance 1025 ml 750 ml Intake IV Total 225 ml 750 ml Other 800 ml # Voids 1 Objective General Appearance: no apparent distress, cachetic, alert oriented x3 Lines, tubes and drains: peripheral HEENT: normocephalic, atraumatic, anicteric, mucous membranes moist, PERRL Neck: non-tender, supple Respiratory/Chest: lungs clear - with moderate air exchange , no respiratory distress, no accessory muscle use Cardiovascular/Chest: normal rate, no JVD Abdomen: normal bowel sounds, soft Extremities: normal range of motion, non-tender, no calf tenderness, normal capillary refill Skin Exam: normal pigmentation, warm/dry Neurologic: no motor/sensory deficits, alert, oriented x 3, responsive Musculoskeletal: normal muscle bulk Microbiology Date/Time Source Procedure Growth Status 05/01/19 19:05 Rectum Received Laboratory Tests 05/02/19 12:45: Stool Occult Blood Negative 05/03/19 06:40: White Blood Count 3.6L, Red Blood Count 2.82L, Hemoglobin 8.7L, Hematocrit 26.3L , Mean Corpuscular Volume 93, Mean Corpuscular Hemoglobin 30.8, Mean Corpuscular Hemoglobin Concent 33.0, Red Cell Distribution Width 12.1, Platelet Count 348, Mean Platelet Volume 5.1L, Neutrophils (%) (Auto) 62.3, Lymphocytes ( %) (Auto) 25.6, Monocytes (%) (Auto) 8.9, Eosinophils (%) (Auto) 2.2, Basophils (%) (Auto) 0.9, Sodium Level 144, Potassium Level 4.9, Chloride Level 114H, Carbon Dioxide Level 21, Anion Gap 9, Blood Urea Nitrogen 45H, Creatinine 1.7H, Estimat Glomerular Filtration Rate , Glucose Level 87, Lactic Acid Level 0.70, Calcium Level 8.4L, Phosphorus Level 4.0, Magnesium Level 1.8, Total Bilirubin 0.2, Aspartate Amino Transf (AST/SGOT) 18, Alanine Aminotransferase (ALT/SGPT) 12, Alkaline Phosphatase 67, Total Protein 7.2, Albumin 2.2L, Globulin 5.0, Albumin/Globulin Ratio 0.4L, Triglycerides Level 84, Cholesterol Level 106, LDL Cholesterol 65, HDL Cholesterol 27L, Cholesterol/HDL Ratio 3.9, Carcinoembryonic Antigen [Pending], Vitamin B12 Level 583, Vitamin D 25-Hydroxy [Pending], 25-Hydroxy Vitamin D2 [Pending], 25-Hydroxy Vitamin D3 [Pending], Folate 11.4 Current Medications Medications (Trade) Dose Ordered Sig/Floyd Route PRN Reason Start Time Stop Time Status Last Admin Dose Admin Acetaminophen (Tylenol) 650 mg Q4H PRN ORAL fever 05/01/19 23:15 05/31/19 23:14 Ceftriaxone Sodium 1 gm/ Dextrose 55 ml @ 110 mls/hr DAILY IVPB 05/03/19 09:00 05/10/19 08:59 05/03/19 09:56 Dextrose (Dextrose 50%) 25 ml Q30M PRN IV Hypoglycemia 05/01/19 23:15 05/31/19 23:14 Dextrose (Dextrose 50%) 50 ml Q30M PRN IV Hypoglycemia 05/01/19 23:15 05/31/19 23:14 Dextrose/ Electrolytes 1,000 ml @ 75 mls/hr [id number] IV 05/03/19 16:00 06/02/19 15:59 Lorazepam (Ativan 2mg/ml 1ml) 0.5 mg Q4H PRN IV For Anxiety 05/01/19 23:15 05/08/19 23:14 Morphine Sulfate (Morphine Sulfate) 1 mg Q4H PRN IVP For Pain 05/01/19 23:15 05/08/19 23:14 Ondansetron HCl (Zofran) 4 mg Q6H PRN IVP Nausea & Vomiting 05/01/19 23:15 05/31/19 23:14 Polyethylene Glycol (Miralax) 17 gm HSPRN PRN ORAL Constipation 05/01/19 23:15 05/31/19 23:14 Polyethylene Glycol/ Electrolytes (Nulytely) 4,000 ml ONCE ORAL 05/03/19 16:00 05/03/19 21:00 Sodium Chloride 1,000 ml @ 75 mls/hr [id number] IV 05/02/19 11:00 06/01/19 10:59 05/03/19 02:00 Zolpidem Tartrate (Ambien) 5 mg HSPRN PRN ORAL Insomnia 05/01/19 23:15 05/08/19 23:14 Nora Hinojosa NP May 03, 2019 10:21
[2019-05-03] MEDS ORDERED: Guaifenesin/DM 10ml syrup ORAL PRN (10:30)
--- NOTE | 2019-05-03 10:44 | Consultation ---
History of Present Illness General Chief Complaint: Generalized Weakness Referring physician: Dr Herrera Reason for Consultation: hospitalist Present Illness Allergies: Coded Allergies: No Known Allergies (Unverified , 10/02/15) Medication History Scheduled Aspirin* (Aspir 81*), 81 MG ORAL DAILY, (Reported) Calcium Carbonate (Calcium), 500 MG PO DAILY, (Reported) Hydroxychloroquine Sulfate (Hydroxychloroquine Sulfate), 200 MG PO DAILY, ( Reported) Scheduled PRN Ibuprofen* (Advil*), Unknown Dose ORAL PRN PRN for Mild Pain/Temp > 100.5, ( Reported) Discontinued Medications Alendronate Sodium* (Fosamax*), Unknown Dose ORAL DAILY, (Reported) Discontinued Reason: Pt stopped taking med Patient History Healthcare decision maker Resuscitation status Full Code Advanced Directive on File Physical Exam Last 24 Hour Vital Signs Date Time Temp Pulse Resp B/P (MAP) Pulse Ox O2 Delivery O2 Flow Rate FiO2 05/03/19 09:00 Room Air 05/03/19 08:00 97.8 70 18 103/51 (68) 97 05/03/19 04:00 97.8 66 20 132/71 (91) 97 05/03/19 00:00 97.6 70 18 114/49 (70) 95 05/02/19 21:00 Room Air 05/02/19 20:00 97.7 70 18 102/55 (71) 98 05/02/19 16:00 98.1 67 18 95/54 (68) 98 05/02/19 12:00 97.8 69 17 110/61 (77) 95 Intake and Output 05/02/19 05/03/19 18:59 06:59 Intake Total 950 ml 825 ml Balance 950 ml 825 ml Intake IV Total 150 ml 825 ml Other 800 ml # Voids 1 Laboratory Tests Test 05/02/19 12:45 05/03/19 06:40 Stool Occult Blood Negative (NEGATIVE) White Blood Count 3.6 K/UL (4.8-10.8) L Red Blood Count 2.82 M/UL (4.20-5.40) L Hemoglobin 8.7 G/DL (12.0-16.0) L Hematocrit 26.3 % (37.0-47.0) L Mean Corpuscular Volume 93 FL (80-99) Mean Corpuscular Hemoglobin 30.8 PG (27.0-31.0) Mean Corpuscular Hemoglobin Concent 33.0 G/DL (32.0-36.0) Red Cell Distribution Width 12.1 % (11.6-14.8) Platelet Count 348 K/UL (150-450) Mean Platelet Volume 5.1 FL (6.5-10.1) L Neutrophils (%) (Auto) 62.3 % (45.0-75.0) Lymphocytes (%) (Auto) 25.6 % (20.0-45.0) Monocytes (%) (Auto) 8.9 % (1.0-10.0) Eosinophils (%) (Auto) 2.2 % (0.0-3.0) Basophils (%) (Auto) 0.9 % (0.0-2.0) Sodium Level 144 MMOL/L (136-145) Potassium Level 4.9 MMOL/L (3.5-5.1) Chloride Level 114 MMOL/L (98-107) H Carbon Dioxide Level 21 MMOL/L (21-32) Anion Gap 9 mmol/L (5-15) Blood Urea Nitrogen 45 mg/dL (7-18) H Creatinine 1.7 MG/DL (0.55-1.30) H Estimat Glomerular Filtration Rate mL/min (>60) Glucose Level 87 MG/DL (74-106) Lactic Acid Level 0.70 mmol/L (0.4-2.0) Calcium Level 8.4 MG/DL (8.5-10.1) L Phosphorus Level 4.0 MG/DL (2.5-4.9) Magnesium Level 1.8 MG/DL (1.8-2.4) Total Bilirubin 0.2 MG/DL (0.2-1.0) Aspartate Amino Transf (AST/SGOT) 18 U/L (15-37) Alanine Aminotransferase (ALT/SGPT) 12 U/L (12-78) Alkaline Phosphatase 67 U/L (46-116) Total Protein 7.2 G/DL (6.4-8.2) Albumin 2.2 G/DL (3.4-5.0) L Globulin 5.0 g/dL Albumin/Globulin Ratio 0.4 (1.0-2.7) L Triglycerides Level 84 MG/DL (30-150) Cholesterol Level 106 MG/DL (< 200) LDL Cholesterol 65 mg/dL (<100) HDL Cholesterol 27 MG/DL (40-60) L Cholesterol/HDL Ratio 3.9 (3.3-4.4) Carcinoembryonic Antigen Pending Vitamin B12 Level 583 PG/ML (193-986) Vitamin D 25-Hydroxy Pending 25-Hydroxy Vitamin D2 Pending 25-Hydroxy Vitamin D3 Pending Folate 11.4 NG/ML (8.6-58.9) Height (Feet): 5 Height (Inches): 1.00 Weight (Pounds): 85 Medications Current Medications Medications (Trade) Dose Ordered Sig/Floyd Route PRN Reason Start Time Stop Time Status Last Admin Dose Admin Acetaminophen (Tylenol) 650 mg Q4H PRN ORAL fever 05/01/19 23:15 05/31/19 23:14 Ceftriaxone Sodium 1 gm/ Dextrose 55 ml @ 110 mls/hr DAILY IVPB 05/03/19 09:00 05/10/19 08:59 05/03/19 09:56 Dextrose (Dextrose 50%) 25 ml Q30M PRN IV Hypoglycemia 05/01/19 23:15 05/31/19 23:14 Dextrose (Dextrose 50%) 50 ml Q30M PRN IV Hypoglycemia 05/01/19 23:15 05/31/19 23:14 Dextrose/ Electrolytes 1,000 ml @ 75 mls/hr [id number] IV 05/03/19 16:00 06/02/19 15:59 Guaifenesin/ Dextromethorphan (Robitussin DM Syrup) 10 ml Q4H PRN ORAL For Cough 05/03/19 10:30 06/02/19 10:29 Lorazepam (Ativan 2mg/ml 1ml) 0.5 mg Q4H PRN IV For Anxiety 05/01/19 23:15 05/08/19 23:14 Morphine Sulfate (Morphine Sulfate) 1 mg Q4H PRN IVP For Pain 05/01/19 23:15 05/08/19 23:14 Ondansetron HCl (Zofran) 4 mg Q6H PRN IVP Nausea & Vomiting 05/01/19 23:15 05/31/19 23:14 Polyethylene Glycol (Miralax) 17 gm HSPRN PRN ORAL Constipation 05/01/19 23:15 05/31/19 23:14 Polyethylene Glycol/ Electrolytes (Nulytely) 4,000 ml ONCE ORAL 05/03/19 16:00 05/03/19 21:00 Sodium Chloride 1,000 ml @ 75 mls/hr [id number] IV 05/02/19 11:00 06/01/19 10:59 05/03/19 02:00 Zolpidem Tartrate (Ambien) 5 mg HSPRN PRN ORAL Insomnia 05/01/19 23:15 05/08/19 23:14 Assessment/Plan Assessment/Plan: Hematology/Oncology Consultation Requesting MD: Isaak Herrera Date of Service:05/03/19 Reason for consultation: Leukopenia and Anemia HPI: Called by Dr. Herrera to [facility]. This is a 73-year-old female, who lives at home, complaining of recent headache, and was recently admitte for tristan, abd pain, n/ vt. The patient came to [facility] diagnosed with pneumonia, infiltrates on cxr on ct scan and Hematology/Oncology was consulted for Leukopenia and Anemia. Hgb 10.4, wbc 3.5. Have seen her before and she had similar findings, and send for a flow which was negative, no bone marrow biopsy was done, hep and hiv neg, as was abd us. PAST MEDICAL HISTORY: Includes rheumatoid arthritis and neuropathy. PAST SURGICAL HISTORY: None. MEDICATIONS: Include cefepime, vancomycin, heparin, Zofran, morphine, Tylenol, and albuterol. ALLERGIES: Denies. SOCIAL HISTORY: No smoking. No alcohol. No intravenous drug abuse. FAMILY HISTORY: Noncontributory. PHYSICAL EXAMINATION: GENERAL: Calm in bed, oriented x3, slight short of breath. VITAL SIGNS: reviewed CARDIOVASCULAR: No murmur. LUNGS: Poor air exchange. ABDOMEN: Bowel sounds distant. EXTREMITIES: No cyanosis or edema. NEUROLOGIC: The patient moves all extremities, slightly weak. LABORATORY AND DIAGNOSTIC DATA: white count .6, hemoglobin and hematocrit 8.6/29, and platelets 173. ASSESSMENT/Recs # Anemia of chronic disease (or of iron deficiency) due to underlying chronic medical issues, multifactorial --> Anemia workup has been ordered from [facility], this time, ferritin --> No evidence of hemolysis is noted, peripheral smear has been reviewed --> Hgb goal >7. Transfuse prn. --> Epogen or iron at this time is not particularly indicated --> Medications have been reviewed --> egd/colo per gi # Decreased white blood cell count, (leukopenia) - wbc under 4k, could also be related to infection (pna) --> continue antibiotics with ID service, appreciate recs --> medications have been reviewed --> hepatitis and hiv have been ordered --> Prior igg was >3000 and spep was anbnormal concerning for myeloma --> obtain immunofixation this time, better test for myeloma # PNA, Antibiotics per Infectious Disease. --> on abx --> O2 and pulmonary treatment. # Headache, chronic # Recent tristan # Dvt ppx scds The timing of this note does not necessarily reflect the time of the patient was seen. Greatly appreciate consultation! Emiliano Mccray MD May 03, 2019 10:44
--- NOTE | 2019-05-03 10:49 | Nephrology Progress Note ---
Assessment/Plan Status: stable, progressing Assessment/Plan: A/P 1) ROLANDO- resolving, prerenal in nature - IVFs. Cr down to 1.7 - Ok for DC from renal point 2) Generalized weakness. Continue IV hydration and aggressive nutrition. 3) Dehydration. We will continue IV fluids. Subjective Date patient seen: May 03, 2019 Time patient seen: 10:48 ROS Limited/Unobtainable: No Allergies: Coded Allergies: No Known Allergies (Unverified , 10/02/15) Subjective Patient feel much better Objective Last 24 Hour Vital Signs Date Time Temp Pulse Resp B/P (MAP) Pulse Ox O2 Delivery O2 Flow Rate FiO2 05/03/19 09:00 Room Air 05/03/19 08:00 97.8 70 18 103/51 (68) 97 05/03/19 04:00 97.8 66 20 132/71 (91) 97 05/03/19 00:00 97.6 70 18 114/49 (70) 95 05/02/19 21:00 Room Air 05/02/19 20:00 97.7 70 18 102/55 (71) 98 05/02/19 16:00 98.1 67 18 95/54 (68) 98 05/02/19 12:00 97.8 69 17 110/61 (77) 95 Intake and Output 05/02/19 05/03/19 19:00 07:00 Intake Total 1025 ml 750 ml Balance 1025 ml 750 ml Intake IV Total 225 ml 750 ml Other 800 ml # Voids 1 Laboratory Tests 05/02/19 12:45: Stool Occult Blood Negative 05/03/19 06:40: White Blood Count 3.6L, Red Blood Count 2.82L, Hemoglobin 8.7L, Hematocrit 26.3L , Mean Corpuscular Volume 93, Mean Corpuscular Hemoglobin 30.8, Mean Corpuscular Hemoglobin Concent 33.0, Red Cell Distribution Width 12.1, Platelet Count 348, Mean Platelet Volume 5.1L, Neutrophils (%) (Auto) 62.3, Lymphocytes ( %) (Auto) 25.6, Monocytes (%) (Auto) 8.9, Eosinophils (%) (Auto) 2.2, Basophils (%) (Auto) 0.9, Sodium Level 144, Potassium Level 4.9, Chloride Level 114H, Carbon Dioxide Level 21, Anion Gap 9, Blood Urea Nitrogen 45H, Creatinine 1.7H, Estimat Glomerular Filtration Rate , Glucose Level 87, Lactic Acid Level 0.70, Calcium Level 8.4L, Phosphorus Level 4.0, Magnesium Level 1.8, Ferritin [Pending ], Total Bilirubin 0.2, Aspartate Amino Transf (AST/SGOT) 18, Alanine Aminotransferase (ALT/SGPT) 12, Alkaline Phosphatase 67, Total Protein 7.2, Total Protein (PEP) [Pending], Albumin 2.2L, Albumin (PEP) [Pending], Globulin 5.0, Globulin (PEP) [Pending], Albumin/Globulin Ratio [Pending], Alpha-1- Globulins [Pending], Ejjkl-0-Fgdyzsoao [Pending], Beta Globulins [Pending], Beta Gamma Globulin [Pending], PEP Abnormal Protein Bands [Pending], Protein Electrophoresis Interpret [Pending], Triglycerides Level 84, Cholesterol Level 106, LDL Cholesterol 65, HDL Cholesterol 27L, Cholesterol/HDL Ratio 3.9, Carcinoembryonic Antigen [Pending], Vitamin B12 Level 583, Vitamin D 25-Hydroxy [Pending], 25-Hydroxy Vitamin D2 [Pending], 25-Hydroxy Vitamin D3 [Pending], Folate 11.4 Height (Feet): 5 Height (Inches): 1.00 Weight (Pounds): 85 General Appearance: no apparent distress, alert EENT: normal ENT inspection Neck: normal alignment, supple Cardiovascular: normal rate, regular rhythm Respiratory/Chest: lungs clear, normal breath sounds Abdomen: non tender, soft Edema: no edema noted Arm (L), no edema noted Arm (R), no edema noted Leg (L), no edema noted Leg (R), no edema noted Pedal (L), no edema noted Pedal (R), no edema noted Generalized Vicente Rolle MD May 03, 2019 10:49
[2019-05-03 12:00] VITALS: BP 127/65
--- NOTE | 2019-05-03 13:53 | NUR ---
RD ASSESSMENT & RECOMMENDATIONS SEE CARE ACTIVITY FOR COMPLETE ASSESSMENT DAILY ESTIMATED NEEDS: Needs based on Underweight,suspected wt loss/ 39kg 30-40 kcals/kg 9808-4396 total kcals 1-1.5 g protein/kg 39-59 g total protein 25-30 mL/kg 975-1170 total fluid mLs NUTRITION DIAGNOSIS: (1) Increased kcal/pro needs R/T underweight status as evidenced by pt @ 86% IBW, underweight BMI per guidelines, w/ suspected 7lbs wt loss x6 months. (2) Altered nutrition related lab values r/t acute kidney injury as evidenced by elev K (5.1) w/ elev BUN and creat. CURRENT DIET:REGULAR PO DIET RECOMMENDATIONS: LOW NA DIET/ soft easy chew ADDITIONAL RECOMMENDATIONS: * Rec standing weight when ambulating halls for accurate CBW * Monitor PO intake closely-> noted good intake -> send snacks in b/w meals * Trend K, need for Low K diet * Add Ensure 4oz daily / consider Nepro if K trends up
--- NOTE | 2019-05-03 14:52 | Diagnostic Imaging Report ---
US VENOUS BILATERAL LOWER EXTREMITIES: No DVT demonstrated.
--- NOTE | 2019-05-03 15:15 | NUR ---
PT Note PT eval completed. Patient is independent in mobility and gait without any AD. No f/u PT treatments needed recommended.
[2019-05-03 16:00] VITALS: BP 138/78
[2019-05-03] MEDS ORDERED: Nulytely 4L ORAL SCH (16:00)
[2019-05-03] MEDS ORDERED: D5 1/2NS w/KCl 20mEq 1,000 ML IV SCH (16:00)
--- NOTE | 2019-05-03 19:44 | NUR ---
NURSE NOTES: Received patient awake,alert,verbal,resting in bed, comfortable.
[2019-05-03 20:00] VITALS: BP 125/67
[2019-05-04] VITALS: BP 100/54
[2019-05-04 04:00] VITALS: BP 116/56
[2019-05-04 06:59] LABS: ANION GAP 8 mmol/L (5-15); BLOOD UREA NITROGEN 34 mg/dL (7-18); CALCIUM 8.6 MG/DL (8.5-10.1); CARBON DIOXIDE 21 MMOL/L (21-32); CHLORIDE 113 MMOL/L (98-107); CREATININE 1.5 MG/DL (0.55-1.30); POTASSIUM 4.6 MMOL/L (3.5-5.1); SODIUM 142 MMOL/L (136-145)
--- NOTE | 2019-05-04 07:05 | NUR ---
NURSE NOTES: REPORT RECEIVED FROM GLORIA SANDHU. PATIENT RECEIVED ALERT AND STABLE SITTING IN BED EATING BREAKFAST, NO COMPLAINTS OF PAIN OR DISCOMFORT. NO SIGNS OF DISTRESS. PATIENT HAS CALL LIGHT WITHIN REACH AND BED IN THE LOW AND LOCKED POSITION. PATIENT HAS FLUIDS RUNNING PRESCRIBED, IV SITE IS CLEAN DRY AND INTACT.
--- NOTE | 2019-05-04 07:30 | NUR ---
HAND-OFF: Report given to GLORIA Thompson.
[2019-05-04 08:00] VITALS: BP 105/56
[2019-05-04] MEDS: cefTRIAXone 1 GM in D5W 55 ML IVPB SCH (08:33)
--- NOTE | 2019-05-04 09:45 | General Progress Note ---
Assessment/Plan Problem List: (1) Malnutrition ICD Codes: E46 - Unspecified protein-calorie malnutrition SNOMED: 91340753 (2) UTI (urinary tract infection) ICD Codes: N39.0 - Urinary tract infection, site not specified SNOMED: 54214918 (3) SOB (shortness of breath) ICD Codes: R06.02 - Shortness of breath SNOMED: 508290840 (4) Cough ICD Codes: R05 - Cough SNOMED: 55219088 (5) Renal failure (ARF), acute on chronic ICD Codes: N17.9 - Acute kidney failure, unspecified; N18.9 - Chronic kidney disease, unspecified SNOMED: 530443987 (6) Episode of generalized weakness ICD Codes: R53.1 - Weakness SNOMED: 76530062 (7) CHF (congestive heart failure) ICD Codes: I50.9 - Heart failure, unspecified SNOMED: 67399532 Status: stable, progressing Assessment/Plan: pt diet abx cbc bmp am aru eval Subjective Constitutional: Reports: weakness Allergies: Coded Allergies: No Known Allergies (Unverified , 10/02/15) All Systems: reviewed and negative except above Subjective calm in bed sl weak Objective Last 24 Hour Vital Signs Date Time Temp Pulse Resp B/P (MAP) Pulse Ox O2 Delivery O2 Flow Rate FiO2 05/04/19 08:00 98.1 70 22 105/56 (72) 97 05/04/19 04:00 97.7 65 16 116/56 (76) 96 05/04/19 00:00 97.3 72 16 100/54 (69) 97 05/03/19 21:15 Room Air 05/03/19 20:00 98.2 64 18 125/67 (86) 95 05/03/19 16:00 97.9 68 19 138/78 (98) 98 05/03/19 12:00 97.9 59 19 127/65 (85) 99 Intake and Output 05/03/19 05/04/19 19:00 07:00 Intake Total 925 ml 1300 ml Balance 925 ml 1300 ml Intake Oral 400 ml IV Total 75 ml 900 ml Other 850 ml # Voids 3 Laboratory Tests 05/04/19 06:10: Sodium Level 142, Potassium Level 4.6, Chloride Level 113H, Carbon Dioxide Level 21, Anion Gap 8, Blood Urea Nitrogen 34H, Creatinine 1.5H, Estimat Glomerular Filtration Rate , Glucose Level 87, Calcium Level 8.6 Height (Feet): 5 Height (Inches): 1.00 Weight (Pounds): 91 General Appearance: lethargic EENT: normal ENT inspection Neck: normal alignment Cardiovascular: normal peripheral pulses, normal rate, regular rhythm Respiratory/Chest: chest wall non-tender, lungs clear, normal breath sounds Abdomen: normal bowel sounds, non tender, soft Extremities: normal inspection Edema: no edema noted Arm (L), no edema noted Arm (R), no edema noted Leg (L), no edema noted Leg (R), no edema noted Pedal (L), no edema noted Pedal (R), no edema noted Generalized Neurologic: responsive, motor weakness Skin: normal pigmentation, warm/dry Isaak Herrera DO May 04, 2019 09:45
--- NOTE | 2019-05-04 10:18 | Nephrology Progress Note ---
Assessment/Plan Problem List: (1) ROLANDO (acute kidney injury) Assessment: Cr lowering (2) Renal failure (ARF), acute on chronic (3) Anemia Assessment ROLANDO bronchitis abdominal pain and nausea, possibly enteritis ( by CT scan) anemia RA protein calorie malnutrition Plan hydrate- monitor renal parameters check ferritin and Iron panel Subjective ROS Limited/Unobtainable: No Interval Events/Complaints Dr Rolle coverage note Constitutional: Reports: malaise, weakness Objective Objective Last 24 Hour Vital Signs Date Time Temp Pulse Resp B/P (MAP) Pulse Ox O2 Delivery O2 Flow Rate FiO2 05/04/19 08:00 98.1 70 22 105/56 (72) 97 05/04/19 04:00 97.7 65 16 116/56 (76) 96 05/04/19 00:00 97.3 72 16 100/54 (69) 97 05/03/19 21:15 Room Air 05/03/19 20:00 98.2 64 18 125/67 (86) 95 05/03/19 16:00 97.9 68 19 138/78 (98) 98 05/03/19 12:00 97.9 59 19 127/65 (85) 99 Intake and Output 05/03/19 05/04/19 19:00 07:00 Intake Total 925 ml 1300 ml Balance 925 ml 1300 ml Intake Oral 400 ml IV Total 75 ml 900 ml Other 850 ml # Voids 3 Laboratory Tests 05/04/19 06:10: Sodium Level 142, Potassium Level 4.6, Chloride Level 113H, Carbon Dioxide Level 21, Anion Gap 8, Blood Urea Nitrogen 34H, Creatinine 1.5H, Estimat Glomerular Filtration Rate , Glucose Level 87, Calcium Level 8.6 Height (Feet): 5 Height (Inches): 1.00 Weight (Pounds): 91 General Appearance: no apparent distress, lethargic Cardiovascular: normal rate Respiratory/Chest: decreased breath sounds Abdomen: soft Isma nUger MD May 04, 2019 10:18
--- NOTE | 2019-05-04 11:47 | NUR ---
*-* DISCHARGE PLANNING *-* PATIENT HAS BEEN REFERRED TO: DUNCAN PARKER P: [phone] F: [phone]
[2019-05-04 12:00] VITALS: BP 114/59
--- NOTE | 2019-05-04 12:17 | NUR ---
NURSE NOTES: DR. HAYS SAW PATIENT WHO STATED SHE WAS HAVING CHEST AND ABDOMINAL PAIN. I ASKED PATIENT IF SHE WANTED SOME PAIN RELIEF AND SHE STATED THAT SHE DID NOT WANT ANY MEDICATIONS FOR PAIN. DR HAYS ALSO ASKED TO CHANGE HER DIET ORDER TO CONSISTENT CARBOHYDRATE DIET MEDIUM 1800 CALORIES. ORDER PLACED PER MD. Addendum: 05/04/19 at 1221 by Irvin Cobb RN NURSE NOTE ENTERED FOR THE WRONG PATIENT. PLEASE IGNORE THE NOTE.
--- NOTE | 2019-05-04 13:20 | Pulmonology Progress Note ---
Assessment/Plan Problems: (1) Purulent bronchitis (2) ROLANDO (acute kidney injury) (3) Emphysema lung (4) Severe anemia Assessment/Plan respiratory treatment check sputum chest PT check electrolytes titrate fio2 to sat of 92% Subjective ROS Limited/Unobtainable: No Constitutional: Reports: no symptoms HEENT: Repors: no symptoms Allergies: Coded Allergies: No Known Allergies (Unverified , 10/02/15) Objective Last 24 Hour Vital Signs Date Time Temp Pulse Resp B/P (MAP) Pulse Ox O2 Delivery O2 Flow Rate FiO2 05/04/19 12:00 98.1 65 20 114/59 (77) 96 05/04/19 09:00 Room Air 05/04/19 08:00 98.1 70 22 105/56 (72) 97 05/04/19 04:00 97.7 65 16 116/56 (76) 96 05/04/19 00:00 97.3 72 16 100/54 (69) 97 05/03/19 21:15 Room Air 05/03/19 20:00 98.2 64 18 125/67 (86) 95 05/03/19 16:00 97.9 68 19 138/78 (98) 98 Intake and Output 05/03/19 05/04/19 19:00 07:00 Intake Total 925 ml 1300 ml Balance 925 ml 1300 ml Intake Oral 400 ml IV Total 75 ml 900 ml Other 850 ml # Voids 3 General Appearance: WD/WN HEENT: normocephalic, anicteric Respiratory/Chest: chest wall non-tender, lungs clear Breasts: no masses Cardiovascular: normal rate Abdomen: normal bowel sounds, no organomegaly Genitourinary: normal external genitalia Microbiology Date/Time Source Procedure Growth Status 05/01/19 19:05 Nasal Nares MRSA Culture - Final NO METHICILLIN RESISTANT STAPH AUREUS... Complete 05/01/19 19:05 Rectum VRE Culture - Final NO VANCOMYCIN RESISTANT ENTEROCOCCUS ... Complete Laboratory Tests 05/04/19 06:10: Sodium Level 142, Potassium Level 4.6, Chloride Level 113H, Carbon Dioxide Level 21, Anion Gap 8, Blood Urea Nitrogen 34H, Creatinine 1.5H, Estimat Glomerular Filtration Rate , Glucose Level 87, Calcium Level 8.6 Current Medications Medications (Trade) Dose Ordered Sig/Floyd Route PRN Reason Start Time Stop Time Status Last Admin Dose Admin Acetaminophen (Tylenol) 650 mg Q4H PRN ORAL fever 05/01/19 23:15 05/31/19 23:14 Ceftriaxone Sodium 1 gm/ Dextrose 55 ml @ 110 mls/hr DAILY IVPB 05/03/19 09:00 05/10/19 08:59 05/04/19 08:33 Dextrose (Dextrose 50%) 25 ml Q30M PRN IV Hypoglycemia 05/01/19 23:15 05/31/19 23:14 Dextrose (Dextrose 50%) 50 ml Q30M PRN IV Hypoglycemia 05/01/19 23:15 05/31/19 23:14 Docusate Sodium (Colace) 100 mg THREE TIMES A DAY ORAL 05/04/19 13:00 06/03/19 12:59 Guaifenesin/ Dextromethorphan (Robitussin DM Syrup) 10 ml Q4H PRN ORAL For Cough 05/03/19 10:30 06/02/19 10:29 Lorazepam (Ativan 2mg/ml 1ml) 0.5 mg Q4H PRN IV For Anxiety 05/01/19 23:15 05/08/19 23:14 Morphine Sulfate (Morphine Sulfate) 1 mg Q4H PRN IVP For Pain 05/01/19 23:15 05/08/19 23:14 Ondansetron HCl (Zofran) 4 mg Q6H PRN IVP Nausea & Vomiting 05/01/19 23:15 05/31/19 23:14 Pantoprazole (Protonix) 40 mg EVERY 12 HOURS ORAL 05/04/19 10:30 06/03/19 10:29 05/04/19 11:27 Polyethylene Glycol (Miralax) 17 gm HSPRN PRN ORAL Constipation 05/01/19 23:15 05/31/19 23:14 Sodium Chloride 1,000 ml @ 75 mls/hr [id number] IV 05/02/19 11:00 06/01/19 10:59 05/04/19 12:26 Zolpidem Tartrate (Ambien) 5 mg HSPRN PRN ORAL Insomnia 05/01/19 23:15 05/08/19 23:14 Stephan Perez MD May 04, 2019 13:19
[2019-05-04] MEDS: Docusate 100mg cap ORAL SCH ×2 (13:24→18:00)
--- NOTE | 2019-05-04 13:42 | Hematology/Onc Progress Note ---
Assessment/Plan Assessment/Plan ASSESSMENT/Recs # Anemia of chronic disease (or of iron deficiency) due to underlying chronic medical issues, multifactorial --> Anemia workup has been ordered from pior adm, this time, ferritin --> No evidence of hemolysis is noted, peripheral smear has been reviewed --> Hgb goal >7. Transfuse prn. --> Epogen or iron at this time is not particularly indicated --> Medications have been reviewed --> egd/colo per gi # Decreased white blood cell count, (leukopenia) - wbc under 4k, could also be related to infection (pna) --> continue antibiotics with ID service, appreciate recs --> medications have been reviewed --> hepatitis and hiv have been ordered --> Prior igg was >3000 and spep was anbnormal concerning for myeloma --> obtain immunofixation this time, better test for myeloma # PNA, Antibiotics per Infectious Disease. --> on abx is on ctx --> O2 and pulmonary treatment. # Headache, chronic # Recent tristan # Dvt ppx scds The timing of this note does not necessarily reflect the time of the patient was seen. Greatly appreciate consultation! Subjective Constitutional: Denies: no symptoms, chills, fever, malaise, weakness, other HEENT: Denies: no symptoms, eye pain, blurred vision, tearing, double vision, ear pain, ear discharge, nose pain, nose congestion, throat pain, throat swelling, mouth pain, mouth swelling, other Respiratory: Denies: no symptoms, cough, shortness of breath, SOB with excertion, SOB at rest, sputum, wheezing, other Gastrointestinal/Abdominal: Denies: no symptoms, abdomen distended, abdominal pain, black stools, tarry stools, blood in stool, constipated, diarrhea, difficulty swallowing, nausea, poor appetite, poor fluid intake, rectal bleeding , vomiting, other Genitourinary: Denies: no symptoms, burning, discharge, frequency, flank pain, hematuria, incontinence, pain, urgency, other Neurologic/Psychiatric: Denies: no symptoms, anxiety, depressed, emotional problems, headache, numbness, paresthesia, pre-existing deficit, seizure, tingling, tremors, weakness, other Endocrine: Denies: no symptoms, excessive sweating, flushing, intolerance to cold, intolerance to heat, increased hunger, increased thirst, increased urine, unexplained weight gain, unexplained weight loss, other Hematologic/Lymphatic: Denies: no symptoms, anemia, easy bleeding, easy bruising, adenopathy, other Allergies: Coded Allergies: No Known Allergies (Unverified , 10/02/15) Subjective 05/04: no events, breathing better, labs noted incl anemia panel Objective Objective Current Medications Medications (Trade) Dose Ordered Sig/Floyd Route PRN Reason Start Time Stop Time Status Last Admin Dose Admin Acetaminophen (Tylenol) 650 mg Q4H PRN ORAL fever 05/01/19 23:15 05/31/19 23:14 Ceftriaxone Sodium 1 gm/ Dextrose 55 ml @ 110 mls/hr DAILY IVPB 05/03/19 09:00 05/10/19 08:59 05/04/19 08:33 Dextrose (Dextrose 50%) 25 ml Q30M PRN IV Hypoglycemia 05/01/19 23:15 05/31/19 23:14 Dextrose (Dextrose 50%) 50 ml Q30M PRN IV Hypoglycemia 05/01/19 23:15 05/31/19 23:14 Docusate Sodium (Colace) 100 mg THREE TIMES A DAY ORAL 05/04/19 13:00 06/03/19 12:59 05/04/19 13:24 Guaifenesin/ Dextromethorphan (Robitussin DM Syrup) 10 ml Q4H PRN ORAL For Cough 05/03/19 10:30 06/02/19 10:29 Lorazepam (Ativan 2mg/ml 1ml) 0.5 mg Q4H PRN IV For Anxiety 05/01/19 23:15 05/08/19 23:14 Morphine Sulfate (Morphine Sulfate) 1 mg Q4H PRN IVP For Pain 05/01/19 23:15 05/08/19 23:14 Ondansetron HCl (Zofran) 4 mg Q6H PRN IVP Nausea & Vomiting 05/01/19 23:15 05/31/19 23:14 Pantoprazole (Protonix) 40 mg EVERY 12 HOURS ORAL 05/04/19 10:30 06/03/19 10:29 05/04/19 11:27 Polyethylene Glycol (Miralax) 17 gm HSPRN PRN ORAL Constipation 05/01/19 23:15 05/31/19 23:14 Sodium Chloride 1,000 ml @ 75 mls/hr [id number] IV 05/02/19 11:00 06/01/19 10:59 05/04/19 12:26 Zolpidem Tartrate (Ambien) 5 mg HSPRN PRN ORAL Insomnia 05/01/19 23:15 05/08/19 23:14 Last 24 Hour Vital Signs Date Time Temp Pulse Resp B/P (MAP) Pulse Ox O2 Delivery O2 Flow Rate FiO2 05/04/19 12:00 98.1 65 20 114/59 (77) 96 05/04/19 09:00 Room Air 05/04/19 08:00 98.1 70 22 105/56 (72) 97 05/04/19 04:00 97.7 65 16 116/56 (76) 96 05/04/19 00:00 97.3 72 16 100/54 (69) 97 05/03/19 21:15 Room Air 05/03/19 20:00 98.2 64 18 125/67 (86) 95 05/03/19 16:00 97.9 68 19 138/78 (98) 98 05/03/19 12:00 97.9 59 19 127/65 (85) 99 05/03/19 09:00 Room Air 05/03/19 08:00 97.8 70 18 103/51 (68) 97 05/03/19 04:00 97.8 66 20 132/71 (91) 97 05/03/19 00:00 97.6 70 18 114/49 (70) 95 05/02/19 21:00 Room Air 05/02/19 20:00 97.7 70 18 102/55 (71) 98 05/02/19 16:00 98.1 67 18 95/54 (68) 98 Intake and Output 05/03/19 05/04/19 19:00 07:00 Intake Total 925 ml 1300 ml Balance 925 ml 1300 ml Intake Oral 400 ml IV Total 75 ml 900 ml Other 850 ml # Voids 3 Labs Test 05/01/19 16:25 05/02/19 06:00 05/02/19 12:45 05/03/19 06:10 White Blood Count 6.2 K/UL (4.8-10.8) 3.3 K/UL (4.8-10.8) Red Blood Count 3.30 M/UL (4.20-5.40) 2.79 M/UL (4.20-5.40) Hemoglobin 10.2 G/DL (12.0-16.0) 8.6 G/DL (12.0-16.0) Hematocrit 30.5 % (37.0-47.0) 25.8 % (37.0-47.0) Mean Corpuscular Volume 93 FL (80-99) 93 FL (80-99) Mean Corpuscular Hemoglobin 30.9 PG (27.0-31.0) 30.9 PG (27.0-31.0) Mean Corpuscular Hemoglobin Concent 33.3 G/DL (32.0-36.0) 33.4 G/DL (32.0-36.0) Red Cell Distribution Width 11.8 % (11.6-14.8) 11.8 % (11.6-14.8) Platelet Count 369 K/UL (150-450) 340 K/UL (150-450) Mean Platelet Volume 4.8 FL (6.5-10.1) 5.0 FL (6.5-10.1) Neutrophils (%) (Auto) 76.2 % (45.0-75.0) % (45.0-75.0) Lymphocytes (%) (Auto) 15.4 % (20.0-45.0) % (20.0-45.0) Monocytes (%) (Auto) 7.0 % (1.0-10.0) % (1.0-10.0) Eosinophils (%) (Auto) 0.8 % (0.0-3.0) % (0.0-3.0) Basophils (%) (Auto) 0.6 % (0.0-2.0) % (0.0-2.0) Urine Color Pale yellow Urine Appearance Clear Urine pH 6 (4.5-8.0) Urine Specific [place] 1.010 (1.005-1.035) Urine Protein 2+ (NEGATIVE) Urine Glucose (UA) Negative (NEGATIVE) Urine Ketones Negative (NEGATIVE) Urine Blood 5+ (NEGATIVE) Urine Nitrite Negative (NEGATIVE) Urine Bilirubin Negative (NEGATIVE) Urine Urobilinogen Normal MG/DL (0.0-1.0) Urine Leukocyte Esterase 1+ (NEGATIVE) Urine RBC 5-10 /HPF (0 - 2) Urine WBC 2-4 /HPF (0 - 2) Urine Squamous Epithelial Cells Few /LPF (NONE/OCC) Urine Bacteria Few /HPF (NONE) Sodium Level 137 MMOL/L (136-145) 142 MMOL/L (136-145) Potassium Level 5.1 MMOL/L (3.5-5.1) 4.8 MMOL/L (3.5-5.1) Chloride Level 105 MMOL/L (98-107) 112 MMOL/L (98-107) Carbon Dioxide Level 22 MMOL/L (21-32) 22 MMOL/L (21-32) Anion Gap 10 mmol/L (5-15) 8 mmol/L (5-15) Blood Urea Nitrogen 58 mg/dL (7-18) 49 mg/dL (7-18) Creatinine 2.2 MG/DL (0.55-1.30) 1.9 MG/DL (0.55-1.30) Estimat Glomerular Filtration Rate mL/min (>60) mL/min (>60) Glucose Level 133 MG/DL (74-106) 89 MG/DL (74-106) Calcium Level 8.8 MG/DL (8.5-10.1) 8.0 MG/DL (8.5-10.1) Phosphorus Level 4.4 MG/DL (2.5-4.9) Magnesium Level 2.3 MG/DL (1.8-2.4) Total Bilirubin 0.3 MG/DL (0.2-1.0) 0.3 MG/DL (0.2-1.0) Aspartate Amino Transf (AST/SGOT) 18 U/L (15-37) 17 U/L (15-37) Alanine Aminotransferase (ALT/SGPT) 11 U/L (12-78) 11 U/L (12-78) Alkaline Phosphatase 84 U/L (46-116) 62 U/L (46-116) Troponin I 0.000 ng/mL (0.000-0.056) Pro-B-Type Natriuretic Peptide 1401 pg/mL (0-125) Total Protein 8.7 G/DL (6.4-8.2) 7.0 G/DL (6.4-8.2) Albumin 2.9 G/DL (3.4-5.0) 2.2 G/DL (3.4-5.0) Globulin 5.8 g/dL 4.8 g/dL Albumin/Globulin Ratio 0.5 (1.0-2.7) 0.5 (1.0-2.7) Differential Total Cells Counted 100 Neutrophils % (Manual) 64 % (45-75) Lymphocytes % (Manual) 26 % (20-45) Monocytes % (Manual) 7 % (1-10) Eosinophils % (Manual) 3 % (0-3) Basophils % (Manual) 0 % (0-2) Band Neutrophils 0 % (0-8) Platelet Estimate Adequate Platelet Morphology Normal Red Blood Cell Morphology Normal Triglycerides Level 80 MG/DL (30-150) Cholesterol Level 100 MG/DL (< 200) LDL Cholesterol 62 mg/dL (<100) HDL Cholesterol 27 MG/DL (40-60) Cholesterol/HDL Ratio 3.7 (3.3-4.4) Thyroid Stimulating Hormone (TSH) 3.266 uiU/mL (0.358-3.740) Stool Occult Blood Negative (NEGATIVE) Test 05/03/19 06:40 05/04/19 06:10 White Blood Count 3.6 K/UL (4.8-10.8) Red Blood Count 2.82 M/UL (4.20-5.40) Hemoglobin 8.7 G/DL (12.0-16.0) Hematocrit 26.3 % (37.0-47.0) Mean Corpuscular Volume 93 FL (80-99) Mean Corpuscular Hemoglobin 30.8 PG (27.0-31.0) Mean Corpuscular Hemoglobin Concent 33.0 G/DL (32.0-36.0) Red Cell Distribution Width 12.1 % (11.6-14.8) Platelet Count 348 K/UL (150-450) Mean Platelet Volume 5.1 FL (6.5-10.1) Neutrophils (%) (Auto) 62.3 % (45.0-75.0) Lymphocytes (%) (Auto) 25.6 % (20.0-45.0) Monocytes (%) (Auto) 8.9 % (1.0-10.0) Eosinophils (%) (Auto) 2.2 % (0.0-3.0) Basophils (%) (Auto) 0.9 % (0.0-2.0) Sodium Level 144 MMOL/L (136-145) 142 MMOL/L (136-145) Potassium Level 4.9 MMOL/L (3.5-5.1) 4.6 MMOL/L (3.5-5.1) Chloride Level 114 MMOL/L (98-107) 113 MMOL/L (98-107) Carbon Dioxide Level 21 MMOL/L (21-32) 21 MMOL/L (21-32) Anion Gap 9 mmol/L (5-15) 8 mmol/L (5-15) Blood Urea Nitrogen 45 mg/dL (7-18) 34 mg/dL (7-18) Creatinine 1.7 MG/DL (0.55-1.30) 1.5 MG/DL (0.55-1.30) Estimat Glomerular Filtration Rate mL/min (>60) mL/min (>60) Glucose Level 87 MG/DL (74-106) 87 MG/DL (74-106) Lactic Acid Level 0.70 mmol/L (0.4-2.0) Calcium Level 8.4 MG/DL (8.5-10.1) 8.6 MG/DL (8.5-10.1) Phosphorus Level 4.0 MG/DL (2.5-4.9) Magnesium Level 1.8 MG/DL (1.8-2.4) Ferritin 125 NG/ML (8-388) Total Bilirubin 0.2 MG/DL (0.2-1.0) Aspartate Amino Transf (AST/SGOT) 18 U/L (15-37) Alanine Aminotransferase (ALT/SGPT) 12 U/L (12-78) Alkaline Phosphatase 67 U/L (46-116) Total Protein 7.2 G/DL (6.4-8.2) Albumin 2.2 G/DL (3.4-5.0) Globulin 5.0 g/dL Albumin/Globulin Ratio 0.4 (1.0-2.7) Triglycerides Level 84 MG/DL (30-150) Cholesterol Level 106 MG/DL (< 200) LDL Cholesterol 65 mg/dL (<100) HDL Cholesterol 27 MG/DL (40-60) Cholesterol/HDL Ratio 3.9 (3.3-4.4) Vitamin B12 Level 583 PG/ML (193-986) Folate 11.4 NG/ML (8.6-58.9) Height (Feet): 5 Height (Inches): 1.00 Weight (Pounds): 91 Objective PHYSICAL EXAMINATION: GENERAL: Calm in bed, oriented x3, slight short of breath. VITAL SIGNS: reviewed CARDIOVASCULAR: No murmur. LUNGS: Poor air exchange. ABDOMEN: Bowel sounds distant. EXTREMITIES: No cyanosis or edema. NEUROLOGIC: The patient moves all extremities, slightly weak. Emiliano Mccray MD May 04, 2019 13:42
[2019-05-04 16:00] VITALS: BP 117/61
--- NOTE | 2019-05-04 19:30 | NUR ---
NURSE NOTES: Received patient in bed, ambulating in the hallway with her son, [place] speaking, steady gate, able to make her needs known, VSS, afebrile, no acute distress noted, IV site clean dry and intact. Call light is within reach, bed is lowered and locked, alarm is on, will continue to monitor for safety and comfort.
--- NOTE | 2019-05-04 19:44 | NUR ---
HAND-OFF: Report given to GLORIA GARCIA.
[2019-05-04 20:00] VITALS: BP 106/62
[2019-05-05] VITALS: BP 121/75
[2019-05-05 04:00] VITALS: BP 106/62
[2019-05-05 06:16] LABS: BASOPHILS % (AUTO) 0.7 % (0.0-2.0); EOSINOPHILS % (AUTO) 1.2 % (0.0-3.0); HEMATOCRIT 25.6 % (37.0-47.0); HEMOGLOBIN 8.6 G/DL (12.0-16.0); LYMPHOCYTES % (AUTO) 24.5 % (20.0-45.0); MEAN CORPUSCULAR VOLUME 94 FL (80-99); MONOCYTES % (AUTO) 9.2 % (1.0-10.0); NEUTROPHILS % (AUTO) 64.5 % (45.0-75.0); PLATELET COUNT 311 K/UL (150-450); RED BLOOD COUNT 2.71 M/UL (4.20-5.40); RED CELL DISTRIBUTION WIDTH 11.4 % (11.6-14.8); WHITE BLOOD COUNT 4.3 K/UL (4.8-10.8)
[2019-05-05 06:36] LABS: % IRON SATURATION 29 % (15-50); IRON 52 ug/dL (50-175); TOTAL IRON BINDING CAPACITY 181 ug/dL (250-450)
[2019-05-05 06:54] LABS: ALANINE AMINOTRANSFERASE 8 U/L (12-78); ALBUMIN 2.3 G/DL (3.4-5.0); ALBUMIN/GLOBULIN RATIO 0.5 (1.0-2.7); ALKALINE PHOSPHATASE 64 U/L (46-116); ANION GAP 9 mmol/L (5-15); ASPARTATE AMINO TRANSFERASE 15 U/L (15-37); BILIRUBIN,TOTAL 0.3 MG/DL (0.2-1.0); BLOOD UREA NITROGEN 30 mg/dL (7-18); CALCIUM 8.3 MG/DL (8.5-10.1); CARBON DIOXIDE 21 MMOL/L (21-32); CHLORIDE 111 MMOL/L (98-107); CREATININE 1.6 MG/DL (0.55-1.30); FERRITIN 128 NG/ML (8-388); PHOSPHORUS 3.6 MG/DL (2.5-4.9); POTASSIUM 4.2 MMOL/L (3.5-5.1); SODIUM 141 MMOL/L (136-145)
--- NOTE | 2019-05-05 07:07 | NUR ---
HAND-OFF: Report given to Irvin CASTRO.
--- NOTE | 2019-05-05 07:17 | NUR ---
NURSE NOTES: HANDOFF RECEIVED FROM GLORIA GARCIA. PATIENT RECEIVED SITTING UPRIGHT IN BED EATING HER BREAKFAST TRAY, NO OBVIOUS SIGNS OF DISTRESS. PATIENT IS ABLE TO MAKE NEEDS KNOWN. PATIENT HAS IV NS RUNNING AT 75, IV SITE IS CLEAN DRY AND INTACT. BED IN LOW AND LOCKED POSITION AND CALL LIGHT WITHIN REACH. WILL CONTINUE TO MONITOR.
[2019-05-05 08:00] VITALS: BP 104/51
[2019-05-05] MEDS: cefTRIAXone 1 GM in D5W 55 ML IVPB SCH (08:26)
[2019-05-05] MEDS: Docusate 100mg cap ORAL SCH ×3 (08:27→18:06)
--- NOTE | 2019-05-05 09:40 | NUR ---
PT NOTE Received MD order for PT evaluation. Patient previously evaluated by PT on 05/03/19 and was independent with all functional mobility without an assistive device. Patient's mobility re-assessed and patient was independent with all functional mobility without an assistive device. Skilled inpatient PT intervention not warranted, patient discharged from PT, Irvin CASTRO notified.
--- NOTE | 2019-05-05 11:19 | GI Progress Note ---
Assessment/Plan Problems: (1) Severe anemia ICD Codes: D64.9 - Anemia, unspecified SNOMED: 083873449 Status: stable Status Narrative Discussed with Dr. Skaggs. Assessment/Plan OB stool negative stable H&H patient refused EGD/colonoscopy advance diet prn transfusions ppi bowel regimen zofran prn dc planning outpatient GI procedures The patient was seen and examined at bedside and all new and available data was reviewed in the patients chart. I agree with the above findings, impression and plan. (Patient seen earlier today. Signature stamp does not reflect patient encounter time.). - Kleber Skaggs MD Subjective Subjective Patient refused EGD and colonoscopy Denies patient denies any nausea vomiting Objective Last 24 Hour Vital Signs Date Time Temp Pulse Resp B/P (MAP) Pulse Ox O2 Delivery O2 Flow Rate FiO2 05/05/19 09:00 Room Air 05/05/19 08:00 98.6 74 19 104/51 (68) 95 05/05/19 04:00 96.8 78 20 106/62 (77) 05/05/19 00:00 98.7 87 20 121/75 (90) 05/04/19 21:00 Room Air 05/04/19 20:00 96.6 88 19 106/62 (77) 05/04/19 16:00 97.3 66 18 117/61 (79) 96 05/04/19 12:00 98.1 65 20 114/59 (77) 96 Intake and Output 05/04/19 05/05/19 19:00 07:00 Intake Total 75 ml 750 ml Balance 75 ml 750 ml IV Total 75 ml 750 ml # Voids 3 3 Laboratory Tests Test 05/05/19 05:35 White Blood Count 4.3 K/UL (4.8-10.8) L Red Blood Count 2.71 M/UL (4.20-5.40) L Hemoglobin 8.6 G/DL (12.0-16.0) L Hematocrit 25.6 % (37.0-47.0) L Mean Corpuscular Volume 94 FL (80-99) Mean Corpuscular Hemoglobin 31.8 PG (27.0-31.0) H Mean Corpuscular Hemoglobin Concent 33.7 G/DL (32.0-36.0) Red Cell Distribution Width 11.4 % (11.6-14.8) L Platelet Count 311 K/UL (150-450) Mean Platelet Volume 5.6 FL (6.5-10.1) L Neutrophils (%) (Auto) 64.5 % (45.0-75.0) Lymphocytes (%) (Auto) 24.5 % (20.0-45.0) Monocytes (%) (Auto) 9.2 % (1.0-10.0) Eosinophils (%) (Auto) 1.2 % (0.0-3.0) Basophils (%) (Auto) 0.7 % (0.0-2.0) Sodium Level 141 MMOL/L (136-145) Potassium Level 4.2 MMOL/L (3.5-5.1) Chloride Level 111 MMOL/L (98-107) H Carbon Dioxide Level 21 MMOL/L (21-32) Anion Gap 9 mmol/L (5-15) Blood Urea Nitrogen 30 mg/dL (7-18) H Creatinine 1.6 MG/DL (0.55-1.30) H Estimat Glomerular Filtration Rate mL/min (>60) Glucose Level 90 MG/DL (74-106) Calcium Level 8.3 MG/DL (8.5-10.1) L Phosphorus Level 3.6 MG/DL (2.5-4.9) Magnesium Level 1.5 MG/DL (1.8-2.4) L Iron Level 52 ug/dL (50-175) Total Iron Binding Capacity 181 ug/dL (250-450) L Percent Iron Saturation 29 % (15-50) Unsaturated Iron Binding 129 ug/dL (112-346) Ferritin 128 NG/ML (8-388) Total Bilirubin 0.3 MG/DL (0.2-1.0) Aspartate Amino Transf (AST/SGOT) 15 U/L (15-37) Alanine Aminotransferase (ALT/SGPT) 8 U/L (12-78) L Alkaline Phosphatase 64 U/L (46-116) Total Protein 7.3 G/DL (6.4-8.2) Albumin 2.3 G/DL (3.4-5.0) L Globulin 5.0 g/dL Albumin/Globulin Ratio 0.5 (1.0-2.7) L Height (Feet): 5 Height (Inches): 1.00 Weight (Pounds): 91 General Appearance: WD/WN, no apparent distress, alert Cardiovascular: normal rate Respiratory/Chest: normal breath sounds, no respiratory distress Abdominal Exam: normal bowel sounds, non tender, soft Extremities: normal range of motion, non-tender Eunice Jolley NP May 05, 2019 11:19
--- NOTE | 2019-05-05 11:51 | Pulmonology Progress Note ---
Assessment/Plan Problems: (1) Purulent bronchitis (2) ROLANDO (acute kidney injury) (3) Emphysema lung (4) Severe anemia Assessment/Plan respiratory treatment check sputum creatinine becoming more stable at 1.6 chest PT check electrolytes titrate fio2 to sat of 92% Subjective ROS Limited/Unobtainable: No Constitutional: Reports: no symptoms HEENT: Repors: no symptoms Respiratory: Reports: no symptoms Allergies: Coded Allergies: No Known Allergies (Unverified , 10/02/15) Objective Last 24 Hour Vital Signs Date Time Temp Pulse Resp B/P (MAP) Pulse Ox O2 Delivery O2 Flow Rate FiO2 05/05/19 09:00 Room Air 05/05/19 08:00 98.6 74 19 104/51 (68) 95 05/05/19 04:00 96.8 78 20 106/62 (77) 05/05/19 00:00 98.7 87 20 121/75 (90) 05/04/19 21:00 Room Air 05/04/19 20:00 96.6 88 19 106/62 (77) 05/04/19 16:00 97.3 66 18 117/61 (79) 96 05/04/19 12:00 98.1 65 20 114/59 (77) 96 Intake and Output 05/04/19 05/05/19 19:00 07:00 Intake Total 75 ml 750 ml Balance 75 ml 750 ml IV Total 75 ml 750 ml # Voids 3 3 General Appearance: WD/WN HEENT: normocephalic, atraumatic Respiratory/Chest: chest wall non-tender, lungs clear Breasts: no masses Cardiovascular: regular rhythm Abdomen: soft, non tender, no organomegaly Extremities: no cyanosis Skin: no rash Laboratory Tests 05/05/19 05:35: White Blood Count 4.3L, Red Blood Count 2.71L, Hemoglobin 8.6L, Hematocrit 25.6L , Mean Corpuscular Volume 94, Mean Corpuscular Hemoglobin 31.8H, Mean Corpuscular Hemoglobin Concent 33.7, Red Cell Distribution Width 11.4L, Platelet Count 311, Mean Platelet Volume 5.6L, Neutrophils (%) (Auto) 64.5, Lymphocytes (%) (Auto) 24.5, Monocytes (%) (Auto) 9.2, Eosinophils (%) (Auto) 1.2, Basophils (%) (Auto) 0.7, Sodium Level 141, Potassium Level 4.2, Chloride Level 111H, Carbon Dioxide Level 21, Anion Gap 9, Blood Urea Nitrogen 30H, Creatinine 1.6H, Estimat Glomerular Filtration Rate , Glucose Level 90, Calcium Level 8.3L, Phosphorus Level 3.6, Magnesium Level 1.5L, Iron Level 52, Total Iron Binding Capacity 181L, Percent Iron Saturation 29, Unsaturated Iron Binding 129, Ferritin 128, Total Bilirubin 0.3, Aspartate Amino Transf (AST/SGOT ) 15, Alanine Aminotransferase (ALT/SGPT) 8L, Alkaline Phosphatase 64, Total Protein 7.3, Albumin 2.3L, Globulin 5.0, Albumin/Globulin Ratio 0.5L Current Medications Medications (Trade) Dose Ordered Sig/Floyd Route PRN Reason Start Time Stop Time Status Last Admin Dose Admin Acetaminophen (Tylenol) 650 mg Q4H PRN ORAL fever 05/01/19 23:15 05/31/19 23:14 Ceftriaxone Sodium 1 gm/ Dextrose 55 ml @ 110 mls/hr DAILY IVPB 05/03/19 09:00 05/10/19 08:59 05/05/19 08:26 Dextrose (Dextrose 50%) 25 ml Q30M PRN IV Hypoglycemia 05/01/19 23:15 05/31/19 23:14 Dextrose (Dextrose 50%) 50 ml Q30M PRN IV Hypoglycemia 05/01/19 23:15 05/31/19 23:14 Docusate Sodium (Colace) 100 mg THREE TIMES A DAY ORAL 05/04/19 13:00 06/03/19 12:59 05/05/19 08:27 Guaifenesin/ Dextromethorphan (Robitussin DM Syrup) 10 ml Q4H PRN ORAL For Cough 05/03/19 10:30 06/02/19 10:29 Lorazepam (Ativan 2mg/ml 1ml) 0.5 mg Q4H PRN IV For Anxiety 05/01/19 23:15 05/08/19 23:14 Morphine Sulfate (Morphine Sulfate) 1 mg Q4H PRN IVP For Pain 05/01/19 23:15 05/08/19 23:14 Ondansetron HCl (Zofran) 4 mg Q6H PRN IVP Nausea & Vomiting 05/01/19 23:15 05/31/19 23:14 Pantoprazole (Protonix) 40 mg EVERY 12 HOURS ORAL 05/04/19 10:30 06/03/19 10:29 05/05/19 08:27 Polyethylene Glycol (Miralax) 17 gm HSPRN PRN ORAL Constipation 05/01/19 23:15 05/31/19 23:14 Sodium Chloride 1,000 ml @ 75 mls/hr [id number] IV 05/02/19 11:00 06/01/19 10:59 05/05/19 05:12 Zolpidem Tartrate (Ambien) 5 mg HSPRN PRN ORAL Insomnia 05/01/19 23:15 05/08/19 23:14 Stephan Perez MD May 05, 2019 11:51
[2019-05-05 12:00] VITALS: BP 107/59
--- NOTE | 2019-05-05 13:23 | General Progress Note ---
Assessment/Plan Problem List: (1) UTI (urinary tract infection) ICD Codes: N39.0 - Urinary tract infection, site not specified SNOMED: 88813605 (2) Renal failure (ARF), acute on chronic ICD Codes: N17.9 - Acute kidney failure, unspecified; N18.9 - Chronic kidney disease, unspecified SNOMED: 285019121 (3) Episode of generalized weakness ICD Codes: R53.1 - Weakness SNOMED: 73481283 Status: stable, progressing Assessment/Plan: pt diet abx cbc bmp am aru eval Subjective Constitutional: Reports: weakness Allergies: Coded Allergies: No Known Allergies (Unverified , 10/02/15) All Systems: reviewed and negative except above Subjective calm in bed sl weak Objective Last 24 Hour Vital Signs Date Time Temp Pulse Resp B/P (MAP) Pulse Ox O2 Delivery O2 Flow Rate FiO2 05/05/19 12:00 98.7 75 18 107/59 (75) 95 05/05/19 09:00 Room Air 05/05/19 08:00 98.6 74 19 104/51 (68) 95 05/05/19 04:00 96.8 78 20 106/62 (77) 05/05/19 00:00 98.7 87 20 121/75 (90) 05/04/19 21:00 Room Air 05/04/19 20:00 96.6 88 19 106/62 (77) 05/04/19 16:00 97.3 66 18 117/61 (79) 96 Intake and Output 05/04/19 05/05/19 19:00 07:00 Intake Total 75 ml 750 ml Balance 75 ml 750 ml IV Total 75 ml 750 ml # Voids 3 3 Laboratory Tests 05/05/19 05:35: White Blood Count 4.3L, Red Blood Count 2.71L, Hemoglobin 8.6L, Hematocrit 25.6L , Mean Corpuscular Volume 94, Mean Corpuscular Hemoglobin 31.8H, Mean Corpuscular Hemoglobin Concent 33.7, Red Cell Distribution Width 11.4L, Platelet Count 311, Mean Platelet Volume 5.6L, Neutrophils (%) (Auto) 64.5, Lymphocytes (%) (Auto) 24.5, Monocytes (%) (Auto) 9.2, Eosinophils (%) (Auto) 1.2, Basophils (%) (Auto) 0.7, Sodium Level 141, Potassium Level 4.2, Chloride Level 111H, Carbon Dioxide Level 21, Anion Gap 9, Blood Urea Nitrogen 30H, Creatinine 1.6H, Estimat Glomerular Filtration Rate , Glucose Level 90, Calcium Level 8.3L, Phosphorus Level 3.6, Magnesium Level 1.5L, Iron Level 52, Total Iron Binding Capacity 181L, Percent Iron Saturation 29, Unsaturated Iron Binding 129, Ferritin 128, Total Bilirubin 0.3, Aspartate Amino Transf (AST/SGOT ) 15, Alanine Aminotransferase (ALT/SGPT) 8L, Alkaline Phosphatase 64, Total Protein 7.3, Albumin 2.3L, Globulin 5.0, Albumin/Globulin Ratio 0.5L Height (Feet): 5 Height (Inches): 1.00 Weight (Pounds): 91 General Appearance: lethargic EENT: normal ENT inspection Neck: normal alignment Cardiovascular: normal peripheral pulses, normal rate, regular rhythm Respiratory/Chest: chest wall non-tender, lungs clear, normal breath sounds Abdomen: normal bowel sounds, non tender, soft Extremities: normal inspection Edema: no edema noted Arm (L), no edema noted Arm (R), no edema noted Leg (L), no edema noted Leg (R), no edema noted Pedal (L), no edema noted Pedal (R), no edema noted Generalized Neurologic: motor weakness Skin: normal pigmentation, warm/dry Isaak Herrera DO May 05, 2019 13:23
--- NOTE | 2019-05-05 14:40 | Hematology/Onc Progress Note ---
Assessment/Plan Assessment/Plan ASSESSMENT/Recs # Anemia of chronic disease due to underlying chronic medical issues, multifactorial --> Anemia workup has been ordered from pior adm, this time, ferritin --> No evidence of hemolysis is noted, peripheral smear has been reviewed --> Hgb goal >7. Transfuse prn. --> Epogen or iron at this time is not particularly indicated --> Medications have been reviewed --> hgb trend 10.2-->8.7-->8.6 --> egd/colo per gi # Decreased white blood cell count, (leukopenia) - wbc under 4k, could also be related to infection (pna) --> continue antibiotics with ID service, appreciate recs --> medications have been reviewed --> hepatitis and hiv have been ordered --> Prior igg was 3500 -->2453 --> wbc trend 6.2-->3.4-->4.3 --> obtain immunofixation PEND # PNA, Antibiotics per Infectious Disease. --> on abx is on ctx --> O2 and pulmonary treatment. # Headache, chronic # Recent tristan # Dvt ppx scds The timing of this note does not necessarily reflect the time of the patient was seen. Greatly appreciate consultation! Subjective Constitutional: Denies: no symptoms, chills, fever, malaise, weakness, other HEENT: Denies: no symptoms, eye pain, blurred vision, tearing, double vision, ear pain, ear discharge, nose pain, nose congestion, throat pain, throat swelling, mouth pain, mouth swelling, other Cardiovascular: Denies: no symptoms, chest pain, edema, irregular heart rate, lightheadedness, palpitations, syncope, other Respiratory: Denies: no symptoms, cough, shortness of breath, SOB with excertion, SOB at rest, sputum, wheezing, other Gastrointestinal/Abdominal: Denies: no symptoms, abdomen distended, abdominal pain, black stools, tarry stools, blood in stool, constipated, diarrhea, difficulty swallowing, nausea, poor appetite, poor fluid intake, rectal bleeding , vomiting, other Genitourinary: Denies: no symptoms, burning, discharge, frequency, flank pain, hematuria, incontinence, pain, urgency, other Neurologic/Psychiatric: Denies: no symptoms, anxiety, depressed, emotional problems, headache, numbness, paresthesia, pre-existing deficit, seizure, tingling, tremors, weakness, other Endocrine: Denies: no symptoms, excessive sweating, flushing, intolerance to cold, intolerance to heat, increased hunger, increased thirst, increased urine, unexplained weight gain, unexplained weight loss, other Allergies: Coded Allergies: No Known Allergies (Unverified , 10/02/15) Subjective 05/04: no events, breathing better, labs noted incl anemia panel 05/05: no bleeding or chills, no major changes, still refusing gi procedures Objective Objective Current Medications Medications (Trade) Dose Ordered Sig/Floyd Route PRN Reason Start Time Stop Time Status Last Admin Dose Admin Acetaminophen (Tylenol) 650 mg Q4H PRN ORAL fever 05/01/19 23:15 05/31/19 23:14 Ceftriaxone Sodium 1 gm/ Dextrose 55 ml @ 110 mls/hr DAILY IVPB 05/03/19 09:00 05/10/19 08:59 05/05/19 08:26 Dextrose (Dextrose 50%) 25 ml Q30M PRN IV Hypoglycemia 05/01/19 23:15 05/31/19 23:14 Dextrose (Dextrose 50%) 50 ml Q30M PRN IV Hypoglycemia 05/01/19 23:15 05/31/19 23:14 Docusate Sodium (Colace) 100 mg THREE TIMES A DAY ORAL 05/04/19 13:00 06/03/19 12:59 05/05/19 12:39 Guaifenesin/ Dextromethorphan (Robitussin DM Syrup) 10 ml Q4H PRN ORAL For Cough 05/03/19 10:30 06/02/19 10:29 Lorazepam (Ativan 2mg/ml 1ml) 0.5 mg Q4H PRN IV For Anxiety 05/01/19 23:15 05/08/19 23:14 Morphine Sulfate (Morphine Sulfate) 1 mg Q4H PRN IVP For Pain 05/01/19 23:15 05/08/19 23:14 Ondansetron HCl (Zofran) 4 mg Q6H PRN IVP Nausea & Vomiting 05/01/19 23:15 05/31/19 23:14 Pantoprazole (Protonix) 40 mg EVERY 12 HOURS ORAL 05/04/19 10:30 06/03/19 10:29 05/05/19 08:27 Polyethylene Glycol (Miralax) 17 gm HSPRN PRN ORAL Constipation 05/01/19 23:15 05/31/19 23:14 Sodium Chloride 1,000 ml @ 75 mls/hr [id number] IV 05/02/19 11:00 06/01/19 10:59 05/05/19 05:12 Zolpidem Tartrate (Ambien) 5 mg HSPRN PRN ORAL Insomnia 05/01/19 23:15 05/08/19 23:14 Last 24 Hour Vital Signs Date Time Temp Pulse Resp B/P (MAP) Pulse Ox O2 Delivery O2 Flow Rate FiO2 05/05/19 12:00 98.7 75 18 107/59 (75) 95 05/05/19 09:00 Room Air 05/05/19 08:00 98.6 74 19 104/51 (68) 95 05/05/19 04:00 96.8 78 20 106/62 (77) 05/05/19 00:00 98.7 87 20 121/75 (90) 05/04/19 21:00 Room Air 05/04/19 20:00 96.6 88 19 106/62 (77) 05/04/19 16:00 97.3 66 18 117/61 (79) 96 05/04/19 12:00 98.1 65 20 114/59 (77) 96 05/04/19 09:00 Room Air 05/04/19 08:00 98.1 70 22 105/56 (72) 97 05/04/19 04:00 97.7 65 16 116/56 (76) 96 05/04/19 00:00 97.3 72 16 100/54 (69) 97 05/03/19 21:15 Room Air 05/03/19 20:00 98.2 64 18 125/67 (86) 95 05/03/19 16:00 97.9 68 19 138/78 (98) 98 Intake and Output 05/04/19 05/05/19 19:00 07:00 Intake Total 75 ml 750 ml Balance 75 ml 750 ml IV Total 75 ml 750 ml # Voids 3 3 Labs Test 05/03/19 06:10 05/03/19 06:40 05/04/19 06:10 05/05/19 05:35 Immunoglobulin G 2453 mg/dL (700-1600) Immunoglobulin A 369 mg/dL (64-422) Immunoglobulin M 88 mg/dL (26-217) Immunofixation Screen Comment (.) White Blood Count 3.6 K/UL (4.8-10.8) 4.3 K/UL (4.8-10.8) Red Blood Count 2.82 M/UL (4.20-5.40) 2.71 M/UL (4.20-5.40) Hemoglobin 8.7 G/DL (12.0-16.0) 8.6 G/DL (12.0-16.0) Hematocrit 26.3 % (37.0-47.0) 25.6 % (37.0-47.0) Mean Corpuscular Volume 93 FL (80-99) 94 FL (80-99) Mean Corpuscular Hemoglobin 30.8 PG (27.0-31.0) 31.8 PG (27.0-31.0) Mean Corpuscular Hemoglobin Concent 33.0 G/DL (32.0-36.0) 33.7 G/DL (32.0-36.0) Red Cell Distribution Width 12.1 % (11.6-14.8) 11.4 % (11.6-14.8) Platelet Count 348 K/UL (150-450) 311 K/UL (150-450) Mean Platelet Volume 5.1 FL (6.5-10.1) 5.6 FL (6.5-10.1) Neutrophils (%) (Auto) 62.3 % (45.0-75.0) 64.5 % (45.0-75.0) Lymphocytes (%) (Auto) 25.6 % (20.0-45.0) 24.5 % (20.0-45.0) Monocytes (%) (Auto) 8.9 % (1.0-10.0) 9.2 % (1.0-10.0) Eosinophils (%) (Auto) 2.2 % (0.0-3.0) 1.2 % (0.0-3.0) Basophils (%) (Auto) 0.9 % (0.0-2.0) 0.7 % (0.0-2.0) Sodium Level 144 MMOL/L (136-145) 142 MMOL/L (136-145) 141 MMOL/L (136-145) Potassium Level 4.9 MMOL/L (3.5-5.1) 4.6 MMOL/L (3.5-5.1) 4.2 MMOL/L (3.5-5.1) Chloride Level 114 MMOL/L (98-107) 113 MMOL/L (98-107) 111 MMOL/L (98-107) Carbon Dioxide Level 21 MMOL/L (21-32) 21 MMOL/L (21-32) 21 MMOL/L (21-32) Anion Gap 9 mmol/L (5-15) 8 mmol/L (5-15) 9 mmol/L (5-15) Blood Urea Nitrogen 45 mg/dL (7-18) 34 mg/dL (7-18) 30 mg/dL (7-18) Creatinine 1.7 MG/DL (0.55-1.30) 1.5 MG/DL (0.55-1.30) 1.6 MG/DL (0.55-1.30) Estimat Glomerular Filtration Rate mL/min (>60) mL/min (>60) mL/min (>60) Glucose Level 87 MG/DL (74-106) 87 MG/DL (74-106) 90 MG/DL (74-106) Lactic Acid Level 0.70 mmol/L (0.4-2.0) Calcium Level 8.4 MG/DL (8.5-10.1) 8.6 MG/DL (8.5-10.1) 8.3 MG/DL (8.5-10.1) Phosphorus Level 4.0 MG/DL (2.5-4.9) 3.6 MG/DL (2.5-4.9) Magnesium Level 1.8 MG/DL (1.8-2.4) 1.5 MG/DL (1.8-2.4) Ferritin 125 NG/ML (8-388) 128 NG/ML (8-388) Total Bilirubin 0.2 MG/DL (0.2-1.0) 0.3 MG/DL (0.2-1.0) Aspartate Amino Transf (AST/SGOT) 18 U/L (15-37) 15 U/L (15-37) Alanine Aminotransferase (ALT/SGPT) 12 U/L (12-78) 8 U/L (12-78) Alkaline Phosphatase 67 U/L (46-116) 64 U/L (46-116) Total Protein 7.2 G/DL (6.4-8.2) 7.3 G/DL (6.4-8.2) Total Protein (PEP) 6.4 g/dL (6.0-8.5) Albumin 2.2 G/DL (3.4-5.0) 2.3 G/DL (3.4-5.0) Albumin (PEP) 2.4 g/dL (2.9-4.4) Globulin 5.0 g/dL 5.0 g/dL Globulin (PEP) 4.0 g/dL (2.2-3.9) Albumin/Globulin Ratio 0.6 (0.7-1.7) 0.5 (1.0-2.7) Tltpi-6-Khbqqsutr 0.3 g/dL (0.0-0.4) Cicea-6-Xlbsuhmcm 0.7 g/dL (0.4-1.0) Beta Globulins 0.9 g/dL (0.7-1.3) Beta Gamma Globulin 2.1 g/dL (0.4-1.8) PEP Abnormal Protein Bands Not observed g/dL (Not Protein Electrophoresis Interpret Comment (.) Triglycerides Level 84 MG/DL (30-150) Cholesterol Level 106 MG/DL (< 200) LDL Cholesterol 65 mg/dL (<100) HDL Cholesterol 27 MG/DL (40-60) Cholesterol/HDL Ratio 3.9 (3.3-4.4) Carcinoembryonic Antigen 0.9 ng/mL (0.0-4.7) Vitamin B12 Level 583 PG/ML (193-986) Folate 11.4 NG/ML (8.6-58.9) Iron Level 52 ug/dL (50-175) Total Iron Binding Capacity 181 ug/dL (250-450) Percent Iron Saturation 29 % (15-50) Unsaturated Iron Binding 129 ug/dL (112-346) Height (Feet): 5 Height (Inches): 1.00 Weight (Pounds): 91 Objective PHYSICAL EXAMINATION: GENERAL: Calm in bed, oriented x3, slight short of breath. VITAL SIGNS: reviewed CARDIOVASCULAR: No murmur. LUNGS: Poor air exchange. ABDOMEN: Bowel sounds distant. EXTREMITIES: No cyanosis or edema. NEUROLOGIC: The patient moves all extremities, slightly weak. Emiliano Mccray MD May 05, 2019 14:40
--- NOTE | 2019-05-05 14:51 | Nephrology Progress Note ---
Assessment/Plan Problem List: (1) ROLANDO (acute kidney injury) Assessment: Cr lowering (2) Renal failure (ARF), acute on chronic (3) Severe anemia Assessment ROLANDO bronchitis abdominal pain and nausea, possibly enteritis ( by CT scan) anemia RA protein calorie malnutrition Plan hydrate- monitor renal parameters check ferritin and Iron panel Subjective Constitutional: Reports: malaise, weakness Objective Objective Last 24 Hour Vital Signs Date Time Temp Pulse Resp B/P (MAP) Pulse Ox O2 Delivery O2 Flow Rate FiO2 05/05/19 12:00 98.7 75 18 107/59 (75) 95 05/05/19 09:00 Room Air 05/05/19 08:00 98.6 74 19 104/51 (68) 95 05/05/19 04:00 96.8 78 20 106/62 (77) 05/05/19 00:00 98.7 87 20 121/75 (90) 05/04/19 21:00 Room Air 05/04/19 20:00 96.6 88 19 106/62 (77) 05/04/19 16:00 97.3 66 18 117/61 (79) 96 Intake and Output 05/04/19 05/05/19 19:00 07:00 Intake Total 75 ml 750 ml Balance 75 ml 750 ml IV Total 75 ml 750 ml # Voids 3 3 Laboratory Tests 05/05/19 05:35: White Blood Count 4.3L, Red Blood Count 2.71L, Hemoglobin 8.6L, Hematocrit 25.6L , Mean Corpuscular Volume 94, Mean Corpuscular Hemoglobin 31.8H, Mean Corpuscular Hemoglobin Concent 33.7, Red Cell Distribution Width 11.4L, Platelet Count 311, Mean Platelet Volume 5.6L, Neutrophils (%) (Auto) 64.5, Lymphocytes (%) (Auto) 24.5, Monocytes (%) (Auto) 9.2, Eosinophils (%) (Auto) 1.2, Basophils (%) (Auto) 0.7, Sodium Level 141, Potassium Level 4.2, Chloride Level 111H, Carbon Dioxide Level 21, Anion Gap 9, Blood Urea Nitrogen 30H, Creatinine 1.6H, Estimat Glomerular Filtration Rate , Glucose Level 90, Calcium Level 8.3L, Phosphorus Level 3.6, Magnesium Level 1.5L, Iron Level 52, Total Iron Binding Capacity 181L, Percent Iron Saturation 29, Unsaturated Iron Binding 129, Ferritin 128, Total Bilirubin 0.3, Aspartate Amino Transf (AST/SGOT ) 15, Alanine Aminotransferase (ALT/SGPT) 8L, Alkaline Phosphatase 64, Total Protein 7.3, Albumin 2.3L, Globulin 5.0, Albumin/Globulin Ratio 0.5L Height (Feet): 5 Height (Inches): 1.00 Weight (Pounds): 91 General Appearance: no apparent distress Respiratory/Chest: decreased breath sounds Abdomen: soft Objective no change Isma Unger MD May 05, 2019 14:51
[2019-05-05 16:00] VITALS: BP 110/58
--- NOTE | 2019-05-05 19:11 | NUR ---
HAND-OFF: Report given to GLORIA GARCIA.
--- NOTE | 2019-05-05 19:12 | NUR ---
NURSE NOTES: Received patient in bed, family at bedside,no acute distress noted, VSS afebrile, IV site is clean dry and intact. Call light is within reach, bed is lowered, locked and alarm is on. Will continue to monitor for comfort and safety.
[2019-05-05 20:00] VITALS: BP 118/78
[2019-05-06] VITALS: BP 126/76
[2019-05-06 04:00] VITALS: BP 112/61
[2019-05-06 07:07] LABS: BASOPHILS % (AUTO) 0.8 % (0.0-2.0); EOSINOPHILS % (AUTO) 1.8 % (0.0-3.0); HEMATOCRIT 26.3 % (37.0-47.0); HEMOGLOBIN 8.6 G/DL (12.0-16.0); LYMPHOCYTES % (AUTO) 20.6 % (20.0-45.0); MEAN CORPUSCULAR VOLUME 93 FL (80-99); MONOCYTES % (AUTO) 9.5 % (1.0-10.0); NEUTROPHILS % (AUTO) 67.3 % (45.0-75.0); PLATELET COUNT 292 K/UL (150-450); RED BLOOD COUNT 2.83 M/UL (4.20-5.40); RED CELL DISTRIBUTION WIDTH 12.4 % (11.6-14.8); WHITE BLOOD COUNT 4.4 K/UL (4.8-10.8)
[2019-05-06 07:26] LABS: ANION GAP 9 mmol/L (5-15); BLOOD UREA NITROGEN 31 mg/dL (7-18); CALCIUM 8.3 MG/DL (8.5-10.1); CARBON DIOXIDE 21 MMOL/L (21-32); CHLORIDE 112 MMOL/L (98-107); CREATININE 1.5 MG/DL (0.55-1.30); PHOSPHORUS 3.6 MG/DL (2.5-4.9); POTASSIUM 4.1 MMOL/L (3.5-5.1); SODIUM 142 MMOL/L (136-145)
--- NOTE | 2019-05-06 07:27 | NUR ---
HAND-OFF: Report given to Sheeba CASTRO.
[2019-05-06 08:00] VITALS: BP 107/54
--- NOTE | 2019-05-06 08:27 | NUR ---
NURSE NOTES: Patient is alert and oriented. No reports of discomfort at the moment. Call light is within reach. Will continue to monitor.
[2019-05-06] MEDS: cefTRIAXone 1 GM in D5W 55 ML IVPB SCH (09:01)
[2019-05-06] MEDS: Docusate 100mg cap ORAL SCH ×3 (09:01→17:03)
--- NOTE | 2019-05-06 09:25 | Hematology/Onc Progress Note ---
Assessment/Plan Assessment/Plan Assessment/Recs # Anemia of chronic disease due to underlying chronic medical issues, multifactorial --> Anemia workup has been ordered from pior adm, this time, ferritin --> No evidence of hemolysis is noted, peripheral smear has been reviewed --> Hgb goal >7. Transfuse prn. --> Epogen or iron at this time is not particularly indicated --> Medications have been reviewed --> hgb trend 10.2-->8.7-->8.6 --> egd/colo per gi # Decreased white blood cell count, (leukopenia) - wbc under 4k, could also be related to infection (pna) --> continue antibiotics with ID service, appreciate recs --> medications have been reviewed --> hepatitis and hiv have been ordered --> Prior igg was 3500 -->2453 --> wbc trend 6.2-->3.4-->4.3 --> obtain immunofixation PENDING # PNA, Antibiotics per Infectious Disease. --> on abx is on ctx --> O2 and pulmonary treatment. # Headache, chronic # Recent tristan --> per renal # Dvt ppx scds The timing of this note does not necessarily reflect the time of the patient was seen. Greatly appreciate consultation! Subjective Constitutional: Denies: no symptoms, chills, fever, malaise, weakness, other HEENT: Denies: no symptoms, eye pain, blurred vision, tearing, double vision, ear pain, ear discharge, nose pain, nose congestion, throat pain, throat swelling, mouth pain, mouth swelling, other Cardiovascular: Denies: no symptoms, chest pain, edema, irregular heart rate, lightheadedness, palpitations, syncope, other Gastrointestinal/Abdominal: Denies: no symptoms, abdomen distended, abdominal pain, black stools, tarry stools, blood in stool, constipated, diarrhea, difficulty swallowing, nausea, poor appetite, poor fluid intake, rectal bleeding , vomiting, other Neurologic/Psychiatric: Denies: no symptoms, anxiety, depressed, emotional problems, headache, numbness, paresthesia, pre-existing deficit, seizure, tingling, tremors, weakness, other Endocrine: Denies: no symptoms, excessive sweating, flushing, intolerance to cold, intolerance to heat, increased hunger, increased thirst, increased urine, unexplained weight gain, unexplained weight loss, other Allergies: Coded Allergies: No Known Allergies (Unverified , 10/02/15) Subjective 05/04: no events, breathing better, labs noted incl anemia panel 05/05: no bleeding or chills, no major changes, still refusing gi procedures 05/06: no events to report, no fc, no bleeding noted, labs reviewed Objective Objective Current Medications Medications (Trade) Dose Ordered Sig/Floyd Route PRN Reason Start Time Stop Time Status Last Admin Dose Admin Acetaminophen (Tylenol) 650 mg Q4H PRN ORAL fever 05/01/19 23:15 05/31/19 23:14 Ceftriaxone Sodium 1 gm/ Dextrose 55 ml @ 110 mls/hr DAILY IVPB 05/03/19 09:00 05/10/19 08:59 05/06/19 09:01 Dextrose (Dextrose 50%) 25 ml Q30M PRN IV Hypoglycemia 05/01/19 23:15 05/31/19 23:14 Dextrose (Dextrose 50%) 50 ml Q30M PRN IV Hypoglycemia 05/01/19 23:15 05/31/19 23:14 Docusate Sodium (Colace) 100 mg THREE TIMES A DAY ORAL 05/04/19 13:00 06/03/19 12:59 05/06/19 09:01 Guaifenesin/ Dextromethorphan (Robitussin DM Syrup) 10 ml Q4H PRN ORAL For Cough 05/03/19 10:30 06/02/19 10:29 Lorazepam (Ativan 2mg/ml 1ml) 0.5 mg Q4H PRN IV For Anxiety 05/01/19 23:15 05/08/19 23:14 Magnesium Sulfate 100 ml @ 100 mls/hr Q1H IVPB 05/06/19 08:00 05/06/19 11:59 Morphine Sulfate (Morphine Sulfate) 1 mg Q4H PRN IVP For Pain 05/01/19 23:15 05/08/19 23:14 Ondansetron HCl (Zofran) 4 mg Q6H PRN IVP Nausea & Vomiting 05/01/19 23:15 05/31/19 23:14 Pantoprazole (Protonix) 40 mg EVERY 12 HOURS ORAL 05/04/19 10:30 06/03/19 10:29 05/06/19 09:01 Polyethylene Glycol (Miralax) 17 gm HSPRN PRN ORAL Constipation 05/01/19 23:15 05/31/19 23:14 Sodium Chloride 1,000 ml @ 75 mls/hr [id number] IV 05/02/19 11:00 06/01/19 10:59 05/06/19 09:01 Zolpidem Tartrate (Ambien) 5 mg HSPRN PRN ORAL Insomnia 05/01/19 23:15 05/08/19 23:14 Last 24 Hour Vital Signs Date Time Temp Pulse Resp B/P (MAP) Pulse Ox O2 Delivery O2 Flow Rate FiO2 05/06/19 04:00 98.8 68 18 112/61 (78) 05/06/19 00:00 97.9 69 18 126/76 (93) 05/05/19 21:16 Room Air 05/05/19 20:00 97.5 87 19 118/78 (91) 05/05/19 16:00 98.9 73 17 110/58 (75) 95 05/05/19 12:00 98.7 75 18 107/59 (75) 95 05/05/19 09:00 Room Air 05/05/19 08:00 98.6 74 19 104/51 (68) 95 05/05/19 04:00 96.8 78 20 106/62 (77) 05/05/19 00:00 98.7 87 20 121/75 (90) 05/04/19 21:00 Room Air 05/04/19 20:00 96.6 88 19 106/62 (77) 05/04/19 16:00 97.3 66 18 117/61 (79) 96 05/04/19 12:00 98.1 65 20 114/59 (77) 96 Intake and Output 05/05/19 05/06/19 19:00 07:00 Intake Total 795 ml 750 ml Balance 795 ml 750 ml Intake Oral 720 ml IV Total 75 ml 750 ml Labs Test 05/04/19 06:10 05/05/19 05:35 05/06/19 05:30 Sodium Level 142 MMOL/L (136-145) 141 MMOL/L (136-145) 142 MMOL/L (136-145) Potassium Level 4.6 MMOL/L (3.5-5.1) 4.2 MMOL/L (3.5-5.1) 4.1 MMOL/L (3.5-5.1) Chloride Level 113 MMOL/L (98-107) 111 MMOL/L (98-107) 112 MMOL/L (98-107) Carbon Dioxide Level 21 MMOL/L (21-32) 21 MMOL/L (21-32) 21 MMOL/L (21-32) Anion Gap 8 mmol/L (5-15) 9 mmol/L (5-15) 9 mmol/L (5-15) Blood Urea Nitrogen 34 mg/dL (7-18) 30 mg/dL (7-18) 31 mg/dL (7-18) Creatinine 1.5 MG/DL (0.55-1.30) 1.6 MG/DL (0.55-1.30) 1.5 MG/DL (0.55-1.30) Estimat Glomerular Filtration Rate mL/min (>60) mL/min (>60) mL/min (>60) Glucose Level 87 MG/DL (74-106) 90 MG/DL (74-106) 84 MG/DL (74-106) Calcium Level 8.6 MG/DL (8.5-10.1) 8.3 MG/DL (8.5-10.1) 8.3 MG/DL (8.5-10.1) White Blood Count 4.3 K/UL (4.8-10.8) 4.4 K/UL (4.8-10.8) Red Blood Count 2.71 M/UL (4.20-5.40) 2.83 M/UL (4.20-5.40) Hemoglobin 8.6 G/DL (12.0-16.0) 8.6 G/DL (12.0-16.0) Hematocrit 25.6 % (37.0-47.0) 26.3 % (37.0-47.0) Mean Corpuscular Volume 94 FL (80-99) 93 FL (80-99) Mean Corpuscular Hemoglobin 31.8 PG (27.0-31.0) 30.5 PG (27.0-31.0) Mean Corpuscular Hemoglobin Concent 33.7 G/DL (32.0-36.0) 32.8 G/DL (32.0-36.0) Red Cell Distribution Width 11.4 % (11.6-14.8) 12.4 % (11.6-14.8) Platelet Count 311 K/UL (150-450) 292 K/UL (150-450) Mean Platelet Volume 5.6 FL (6.5-10.1) 4.8 FL (6.5-10.1) Neutrophils (%) (Auto) 64.5 % (45.0-75.0) 67.3 % (45.0-75.0) Lymphocytes (%) (Auto) 24.5 % (20.0-45.0) 20.6 % (20.0-45.0) Monocytes (%) (Auto) 9.2 % (1.0-10.0) 9.5 % (1.0-10.0) Eosinophils (%) (Auto) 1.2 % (0.0-3.0) 1.8 % (0.0-3.0) Basophils (%) (Auto) 0.7 % (0.0-2.0) 0.8 % (0.0-2.0) Phosphorus Level 3.6 MG/DL (2.5-4.9) 3.6 MG/DL (2.5-4.9) Magnesium Level 1.5 MG/DL (1.8-2.4) 1.4 MG/DL (1.8-2.4) Iron Level 52 ug/dL (50-175) Total Iron Binding Capacity 181 ug/dL (250-450) Percent Iron Saturation 29 % (15-50) Unsaturated Iron Binding 129 ug/dL (112-346) Ferritin 128 NG/ML (8-388) Total Bilirubin 0.3 MG/DL (0.2-1.0) Aspartate Amino Transf (AST/SGOT) 15 U/L (15-37) Alanine Aminotransferase (ALT/SGPT) 8 U/L (12-78) Alkaline Phosphatase 64 U/L (46-116) Total Protein 7.3 G/DL (6.4-8.2) Albumin 2.3 G/DL (3.4-5.0) Globulin 5.0 g/dL Albumin/Globulin Ratio 0.5 (1.0-2.7) Height (Feet): 5 Height (Inches): 1.00 Weight (Pounds): 91 Objective PHYSICAL EXAMINATION: GENERAL: Calm in bed, oriented x3, slight short of breath. VITAL SIGNS: reviewed CARDIOVASCULAR: No murmur. LUNGS: Poor air exchange. ABDOMEN: Bowel sounds distant. EXTREMITIES: No cyanosis or edema. NEUROLOGIC: The patient moves all extremities, slightly weak. Emiliano Mccray MD May 06, 2019 09:25
--- NOTE | 2019-05-06 10:27 | Nephrology Progress Note ---
Assessment/Plan Problem List: (1) ROLANDO (acute kidney injury) Assessment: Cr lowering (2) Renal failure (ARF), acute on chronic (3) Severe anemia Assessment ROLANDO bronchitis abdominal pain and nausea, possibly enteritis ( by CT scan) anemia RA protein calorie malnutrition Plan Mag IV hydrate- monitor renal parameters check ferritin and Iron panel Subjective ROS Limited/Unobtainable: No Constitutional: Reports: malaise Objective Objective Last 24 Hour Vital Signs Date Time Temp Pulse Resp B/P (MAP) Pulse Ox O2 Delivery O2 Flow Rate FiO2 05/06/19 04:00 98.8 68 18 112/61 (78) 05/06/19 00:00 97.9 69 18 126/76 (93) 05/05/19 21:16 Room Air 05/05/19 20:00 97.5 87 19 118/78 (91) 05/05/19 16:00 98.9 73 17 110/58 (75) 95 05/05/19 12:00 98.7 75 18 107/59 (75) 95 Intake and Output 05/05/19 05/06/19 19:00 07:00 Intake Total 795 ml 750 ml Balance 795 ml 750 ml Intake Oral 720 ml IV Total 75 ml 750 ml Laboratory Tests 05/06/19 05:30: White Blood Count 4.4L, Red Blood Count 2.83L, Hemoglobin 8.6L, Hematocrit 26.3L , Mean Corpuscular Volume 93, Mean Corpuscular Hemoglobin 30.5, Mean Corpuscular Hemoglobin Concent 32.8, Red Cell Distribution Width 12.4, Platelet Count 292, Mean Platelet Volume 4.8L, Neutrophils (%) (Auto) 67.3, Lymphocytes ( %) (Auto) 20.6, Monocytes (%) (Auto) 9.5, Eosinophils (%) (Auto) 1.8, Basophils (%) (Auto) 0.8, Sodium Level 142, Potassium Level 4.1, Chloride Level 112H, Carbon Dioxide Level 21, Anion Gap 9, Blood Urea Nitrogen 31H, Creatinine 1.5H, Estimat Glomerular Filtration Rate , Glucose Level 84, Calcium Level 8.3L, Phosphorus Level 3.6, Magnesium Level 1.4L Height (Feet): 5 Height (Inches): 1.00 Weight (Pounds): 91 General Appearance: no apparent distress Objective no change Isma Unger MD May 06, 2019 10:27
[2019-05-06 12:00] VITALS: BP 110/60
--- NOTE | 2019-05-06 12:22 | GI Progress Note ---
Assessment/Plan Problems: (1) Severe anemia ICD Codes: D64.9 - Anemia, unspecified SNOMED: [id number] Status: stable Status Narrative Discussed with Dr. Skaggs. Assessment/Plan OB stool negative stable H&H patient refused EGD/colonoscopy advance diet prn transfusions ppi bowel regimen zofran prn dc planning outpatient GI procedures The patient was seen and examined at bedside and all new and available data was reviewed in the patients chart. I agree with the above findings, impression and plan. (Patient seen earlier today. Signature stamp does not reflect patient encounter time.). - Kleber Skaggs MD Subjective Subjective Patient refused EGD and colonoscopy Denies patient denies any nausea vomiting Objective Last 24 Hour Vital Signs Date Time Temp Pulse Resp B/P (MAP) Pulse Ox O2 Delivery O2 Flow Rate FiO2 05/06/19 08:45 Room Air 05/06/19 08:00 98.4 81 18 107/54 (71) 95 05/06/19 04:00 98.8 68 18 112/61 (78) 05/06/19 00:00 97.9 69 18 126/76 (93) 05/05/19 21:16 Room Air 05/05/19 20:00 97.5 87 19 118/78 (91) 05/05/19 16:00 98.9 73 17 110/58 (75) 95 Intake and Output 05/05/19 05/06/19 19:00 07:00 Intake Total 795 ml 750 ml Balance 795 ml 750 ml Intake Oral 720 ml IV Total 75 ml 750 ml Laboratory Tests Test 05/06/19 05:30 White Blood Count 4.4 K/UL (4.8-10.8) L Red Blood Count 2.83 M/UL (4.20-5.40) L Hemoglobin 8.6 G/DL (12.0-16.0) L Hematocrit 26.3 % (37.0-47.0) L Mean Corpuscular Volume 93 FL (80-99) Mean Corpuscular Hemoglobin 30.5 PG (27.0-31.0) Mean Corpuscular Hemoglobin Concent 32.8 G/DL (32.0-36.0) Red Cell Distribution Width 12.4 % (11.6-14.8) Platelet Count 292 K/UL (150-450) Mean Platelet Volume 4.8 FL (6.5-10.1) L Neutrophils (%) (Auto) 67.3 % (45.0-75.0) Lymphocytes (%) (Auto) 20.6 % (20.0-45.0) Monocytes (%) (Auto) 9.5 % (1.0-10.0) Eosinophils (%) (Auto) 1.8 % (0.0-3.0) Basophils (%) (Auto) 0.8 % (0.0-2.0) Sodium Level 142 MMOL/L (136-145) Potassium Level 4.1 MMOL/L (3.5-5.1) Chloride Level 112 MMOL/L (98-107) H Carbon Dioxide Level 21 MMOL/L (21-32) Anion Gap 9 mmol/L (5-15) Blood Urea Nitrogen 31 mg/dL (7-18) H Creatinine 1.5 MG/DL (0.55-1.30) H Estimat Glomerular Filtration Rate mL/min (>60) Glucose Level 84 MG/DL (74-106) Calcium Level 8.3 MG/DL (8.5-10.1) L Phosphorus Level 3.6 MG/DL (2.5-4.9) Magnesium Level 1.4 MG/DL (1.8-2.4) L Height (Feet): 5 Height (Inches): 1.00 Weight (Pounds): 91 General Appearance: WD/WN, no apparent distress, alert Cardiovascular: normal rate Respiratory/Chest: normal breath sounds, no respiratory distress Abdominal Exam: normal bowel sounds, non tender, soft Extremities: normal range of motion, non-tender Eunice Jolley NP May 06, 2019 12:22
--- NOTE | 2019-05-06 12:52 | Pulmonology Progress Note ---
Assessment/Plan Problems: (1) Purulent bronchitis (2) ROLANDO (acute kidney injury) (3) Emphysema lung (4) Severe anemia Assessment/Plan doing better respiratory treatment creatinine becoming more stable at 1.6 chest PT check electrolytes titrate fio2 to sat of 92% Subjective ROS Limited/Unobtainable: No Constitutional: Reports: no symptoms HEENT: Repors: no symptoms Respiratory: Reports: no symptoms Allergies: Coded Allergies: No Known Allergies (Unverified , 10/02/15) Objective Last 24 Hour Vital Signs Date Time Temp Pulse Resp B/P (MAP) Pulse Ox O2 Delivery O2 Flow Rate FiO2 05/06/19 08:45 Room Air 05/06/19 08:00 98.4 81 18 107/54 (71) 95 05/06/19 04:00 98.8 68 18 112/61 (78) 05/06/19 00:00 97.9 69 18 126/76 (93) 05/05/19 21:16 Room Air 05/05/19 20:00 97.5 87 19 118/78 (91) 05/05/19 16:00 98.9 73 17 110/58 (75) 95 Intake and Output 05/05/19 05/06/19 19:00 07:00 Intake Total 795 ml 750 ml Balance 795 ml 750 ml Intake Oral 720 ml IV Total 75 ml 750 ml General Appearance: WD/WN Respiratory/Chest: chest wall non-tender, lungs clear Breasts: no masses Cardiovascular: normal peripheral pulses, regular rhythm Abdomen: soft, non tender, no organomegaly Extremities: no clubbing Skin: no rash Laboratory Tests 05/06/19 05:30: White Blood Count 4.4L, Red Blood Count 2.83L, Hemoglobin 8.6L, Hematocrit 26.3L , Mean Corpuscular Volume 93, Mean Corpuscular Hemoglobin 30.5, Mean Corpuscular Hemoglobin Concent 32.8, Red Cell Distribution Width 12.4, Platelet Count 292, Mean Platelet Volume 4.8L, Neutrophils (%) (Auto) 67.3, Lymphocytes ( %) (Auto) 20.6, Monocytes (%) (Auto) 9.5, Eosinophils (%) (Auto) 1.8, Basophils (%) (Auto) 0.8, Sodium Level 142, Potassium Level 4.1, Chloride Level 112H, Carbon Dioxide Level 21, Anion Gap 9, Blood Urea Nitrogen 31H, Creatinine 1.5H, Estimat Glomerular Filtration Rate , Glucose Level 84, Calcium Level 8.3L, Phosphorus Level 3.6, Magnesium Level 1.4L Current Medications Medications (Trade) Dose Ordered Sig/Floyd Route PRN Reason Start Time Stop Time Status Last Admin Dose Admin Acetaminophen (Tylenol) 650 mg Q4H PRN ORAL fever 05/01/19 23:15 05/31/19 23:14 Ceftriaxone Sodium 1 gm/ Dextrose 55 ml @ 110 mls/hr DAILY IVPB 05/03/19 09:00 05/10/19 08:59 05/06/19 09:01 Dextrose (Dextrose 50%) 25 ml Q30M PRN IV Hypoglycemia 05/01/19 23:15 05/31/19 23:14 Dextrose (Dextrose 50%) 50 ml Q30M PRN IV Hypoglycemia 05/01/19 23:15 05/31/19 23:14 Docusate Sodium (Colace) 100 mg THREE TIMES A DAY ORAL 05/04/19 13:00 06/03/19 12:59 05/06/19 12:22 Guaifenesin/ Dextromethorphan (Robitussin DM Syrup) 10 ml Q4H PRN ORAL For Cough 05/03/19 10:30 06/02/19 10:29 Lorazepam (Ativan 2mg/ml 1ml) 0.5 mg Q4H PRN IV For Anxiety 05/01/19 23:15 05/08/19 23:14 Morphine Sulfate (Morphine Sulfate) 1 mg Q4H PRN IVP For Pain 05/01/19 23:15 05/08/19 23:14 Ondansetron HCl (Zofran) 4 mg Q6H PRN IVP Nausea & Vomiting 05/01/19 23:15 05/31/19 23:14 Pantoprazole (Protonix) 40 mg EVERY 12 HOURS ORAL 05/04/19 10:30 06/03/19 10:29 05/06/19 09:01 Polyethylene Glycol (Miralax) 17 gm HSPRN PRN ORAL Constipation 05/01/19 23:15 05/31/19 23:14 Sodium Chloride 1,000 ml @ 75 mls/hr [id number] IV 05/02/19 11:00 06/01/19 10:59 05/06/19 09:01 Zolpidem Tartrate (Ambien) 5 mg HSPRN PRN ORAL Insomnia 05/01/19 23:15 05/08/19 23:14 Stephan Perez MD May 06, 2019 12:52
--- NOTE | 2019-05-06 14:11 | General Progress Note ---
Assessment/Plan Problem List: (1) UTI (urinary tract infection) ICD Codes: N39.0 - Urinary tract infection, site not specified SNOMED: 39339632 (2) Renal failure (ARF), acute on chronic ICD Codes: N17.9 - Acute kidney failure, unspecified; N18.9 - Chronic kidney disease, unspecified SNOMED: 293873230 (3) Episode of generalized weakness ICD Codes: R53.1 - Weakness SNOMED: 66785351 Status: stable, progressing Assessment/Plan: pt diet abx dc to [facility] Subjective Constitutional: Reports: weakness Allergies: Coded Allergies: No Known Allergies (Unverified , 10/02/15) All Systems: reviewed and negative except above Subjective calm in bed sl weak Objective Last 24 Hour Vital Signs Date Time Temp Pulse Resp B/P (MAP) Pulse Ox O2 Delivery O2 Flow Rate FiO2 05/06/19 12:00 98.3 65 20 110/60 (77) 96 05/06/19 08:45 Room Air 05/06/19 08:00 98.4 81 18 107/54 (71) 95 05/06/19 04:00 98.8 68 18 112/61 (78) 05/06/19 00:00 97.9 69 18 126/76 (93) 05/05/19 21:16 Room Air 05/05/19 20:00 97.5 87 19 118/78 (91) 05/05/19 16:00 98.9 73 17 110/58 (75) 95 Intake and Output 05/05/19 05/06/19 19:00 07:00 Intake Total 795 ml 750 ml Balance 795 ml 750 ml Intake Oral 720 ml IV Total 75 ml 750 ml Laboratory Tests 05/06/19 05:30: White Blood Count 4.4L, Red Blood Count 2.83L, Hemoglobin 8.6L, Hematocrit 26.3L , Mean Corpuscular Volume 93, Mean Corpuscular Hemoglobin 30.5, Mean Corpuscular Hemoglobin Concent 32.8, Red Cell Distribution Width 12.4, Platelet Count 292, Mean Platelet Volume 4.8L, Neutrophils (%) (Auto) 67.3, Lymphocytes ( %) (Auto) 20.6, Monocytes (%) (Auto) 9.5, Eosinophils (%) (Auto) 1.8, Basophils (%) (Auto) 0.8, Sodium Level 142, Potassium Level 4.1, Chloride Level 112H, Carbon Dioxide Level 21, Anion Gap 9, Blood Urea Nitrogen 31H, Creatinine 1.5H, Estimat Glomerular Filtration Rate , Glucose Level 84, Calcium Level 8.3L, Phosphorus Level 3.6, Magnesium Level 1.4L Height (Feet): 5 Height (Inches): 1.00 Weight (Pounds): 91 General Appearance: lethargic EENT: normal ENT inspection Neck: normal alignment Cardiovascular: normal peripheral pulses, normal rate, regular rhythm Respiratory/Chest: chest wall non-tender, lungs clear, normal breath sounds Abdomen: normal bowel sounds, non tender, soft Extremities: normal inspection Edema: no edema noted Arm (L), no edema noted Arm (R), no edema noted Leg (L), no edema noted Leg (R), no edema noted Pedal (L), no edema noted Pedal (R), no edema noted Generalized Neurologic: responsive, motor weakness Skin: normal pigmentation, warm/dry Isaak Herrera DO May 06, 2019 14:11
[2019-05-06 16:00] VITALS: BP 117/63
[2019-05-06] MEDS ORDERED: Tubing IV Secondary IV ONE (19:34)
--- NOTE | 2019-05-06 19:46 | NUR ---
NURSE NOTES: Patient discharged Home with Home Health via private vehicle. IV removed. Discharge instructions given to son. Home Health information given to son. ID bracelet removed. Patient accompanied to lobby by RN.
--- NOTE | 2019-05-08 08:54 | Discharge Summary ---
Discharge Summary Discharge Summary _ DATE OF ADMISSION: 05/01/2019 DATE OF DISCHARGE: 05/06/2019 DISCHARGED BY: Dr. Herrera REASON FOR ADMISSION: 73 years old female with past medical history of rheumatoid arthritis, pulmonary MAC, multidrug-resistant pneumonia, osteoporosis, recent hospitalization for acute kidney injury, was brought back by her family for evaluation. Patient apparently did not feel well, had headache, right-sided flank pain and right lower quadrant abdominal pain. She admitted to nausea, but no vomiting, no diarrhea. Patient reported intermittent dry cough, but no wheezing, no hemoptysis. No fever or chills. No shortness of breath or chest pain. No dizziness or blackout. Upon evaluation vital signs are stable.. Laboratory work-up revealed no leukocytosis, hemoglobin 10.2, hematocrit 30.5, platelet count 369. Urinalysis revealed +2 protein, +1 leukocyte esterase, no pyuria, no bacteria. Stable electrolytes. BUN 55, creatinine 2.2. Stable LFT. Troponin negative, pro BNP 142. Albumin 2.9. CT scan of the abdomen reveal evidence of fluid and gas filled small bowel loops , nonspecific, possibly representing enteritis or ileus. Bronchial wall thickening, concerning for bronchitis. Patchy ground-glass opacity and density in the lower lobe, concerning for infectious inflammatory process. Patient subsequently admitted for further management. CONSULTANTS: hospitalist /handbag finisher Dr. Perez GI specialist Dr. Skaggs clay maker Dr.De Marx handle assembler/oncologist Dr. Mccray [facility] COURSE: Patient admitted to medical surgical floor. Patient started on the IV fluids. Renal parameters and electrolytes were closely monitored. Electrolytes corrected as needed. Nephrotoxics avoided. Creatinine was slowly trending down. Research Associate Policy followed. Per clay maker, patient had acute kidney injury mainly prerenal due to dehydration along with chronic kidney disease. Prior to discharge BUN from 58 down to 31 and creatinine from 2.2 down to 1.5. Recommended to avoid nephrotoxic medication in the future, especially nonsteroidal anti-inflammatory drugs. Venous duplex bilateral lower extremity revealed no evidence of acute DVT. Supplemental oxygen was on board as needed to keep pulse oximetry above 92%. Bronchodilator treatment provided as needed. Chest physical therapy provided. Patient started on empiric antibiotics. Antitussive administered as needed. Given no fever, no leukocytosis, no shortness of breath, doubted pneumonia . Patient had purulent bronchitis superimposed on chronic lung disease/emphysema. Prior to discharge pulse oximetry was stable on room air. GI specialist followed. GI specialist recommended outpatient colonoscopy as a screening, since patient never had one. Diet was slowly advanced as tolerated. GI prophylaxis provided. Bowel regimen instituted. Antiemetic were on board as needed. Dietary recommendation regarding protein supplements implemented in plan of care. Patient likely had enteritis , given CT results , which resulted with supportive care. Stool for occult blood was negative. CEA was within normal limits. Hemoglobin and hematocrit were closely monitored with goal to keep hemoglobin above 7. Prior to discharge hemoglobin 8.6, hematocrit 26.3. Anemia work-up was consistent with anemia of chronic disease Manager Diabetes followed. Anemia of chronic disease was due to underlying chronic medical issues and was multifactorial. No evidence of hemolysis noted. Peripheral smear had been reviewed. Epogen or iron at this situation were not particularly indicated. Pain management was addressed. Supportive care provided. Patient clinically stabilized and was ready for discharge home with home health services to follow. FINAL DIAGNOSES: Purulent bronchitis Acute on chronic renal failure Acute kidney injury/prerenal due to dehydration Enteritis Emphysema of lung Severe anemia Anemia of chronic disease Protein calorie malnutrition Rheumatoid arthritis DISCHARGE MEDICATIONS: See Medication Reconciliation list. DISCHARGE INSTRUCTIONS: Patient was discharged home with home health services. Follow up with primary care provider in one week. I have been assigned to dictate discharge summary for this account. I was not involved in the patient's management. Nora Hinojosa NP May 08, 2019 08:54
== END 2019-05-06 19:35 | disposition home health service (06) | DRG 682 ==
LOC: EMR 16:20 → EDBEDREQ 20:33 → 4E 20:51
DX: N17.9 Acute kidney failure, unspecified (principal); J18.9 Pneumonia, unspecified organism; E46 Unspecified protein-calorie malnutrition; K52.9 Noninfective gastroenteritis and colitis, unspecified; R62.7 Adult failure to thrive; M06.9 Rheumatoid arthritis, unspecified; E86.0 Dehydration; D63.8 Anemia in other chronic diseases classified elsewhere; M81.0 Age-related osteoporosis without current pathological fracture; N18.9 Chronic kidney disease, unspecified; I50.9 Heart failure, unspecified; J41.1 Mucopurulent chronic bronchitis
CPT/HCPCS: 36415; 74176; 80048; 80053; 80061; 81003; 82270; 82306; 82378; 82607; 82728; 82746; 82784; 83540; 83550; 83605; 83735; 83880; 84100; 84165; 84443; 84484; 85007; 85025; 86334; 87081; 93970; 96361; 96374; 97802; 99285

== ENCOUNTER 2019-05-12 18:07 | Inpatient (IN) | payer MEDICARE, OTHER ==
[~2019-05-12] VITALS: Ht 154.9 cm; Wt 43.1 kg
[2019-05-12] MEDS ORDERED: CENTRUM SILVER1 EAC6 PO (18:44)
[2019-05-12] MEDS ORDERED: CALCIUM + VITA1 EAC1 PO (18:44)
--- NOTE | 2019-05-12 18:50 | NUR ---
ED Nurse Note: pt walked in to ER with a son and a daughter from home due to Rt flank pain 12/26. pt aao x4 and ambulatory. skin clean and intact. calm and cooperative. no acute distress noted at this moment. pt is in gown and on teletypesetter monitor. per pt, she was discharged from [facility] 2 days ago for the same symptoms.
[2019-05-12 18:58] VITALS: BP 130/58
[2019-05-12 19:06] LABS: APPEARANCE,URINE CLEAR; BILIRUBIN, URINE NEGATIVE (NEGATIVE); COLOR,URINE PALE YELLOW; GLUCOSE, URINE (UA) NEGATIVE (NEGATIVE); KETONES,URINE NEGATIVE (NEGATIVE); LEUKOCYTE ESTERASE ,URINE 2+ (NEGATIVE); NITRITE,URINE NEGATIVE (NEGATIVE); PH,URINE 6 (4.5-8.0); PROTEIN,URINE 2+ (NEGATIVE); UROBILINOGEN,URINE NORMAL MG/DL (0.0-1.0)
--- NOTE | 2019-05-12 19:07 | NUR ---
HAND-OFF: Report given to GLORIA Owens.
--- NOTE | 2019-05-12 19:13 | NUR ---
ED Nurse Note: Patietn resting comfortably with 2 family members at bedside. IV fluid, NS 1L hung.
[2019-05-12 19:15] LABS: BASOPHILS % (AUTO) 0.7 % (0.0-2.0); EOSINOPHILS % (AUTO) 0.3 % (0.0-3.0); HEMATOCRIT 28.5 % (37.0-47.0); HEMOGLOBIN 9.5 G/DL (12.0-16.0); LYMPHOCYTES % (AUTO) 13.9 % (20.0-45.0); MEAN CORPUSCULAR VOLUME 93 FL (80-99); MONOCYTES % (AUTO) 8.5 % (1.0-10.0); NEUTROPHILS % (AUTO) 76.6 % (45.0-75.0); PLATELET COUNT 303 K/UL (150-450); RED BLOOD COUNT 3.06 M/UL (4.20-5.40); RED CELL DISTRIBUTION WIDTH 11.7 % (11.6-14.8); WHITE BLOOD COUNT 7.8 K/UL (4.8-10.8)
[2019-05-12 19:18] LABS: ANION GAP 9 mmol/L (5-15); BLOOD UREA NITROGEN 52 mg/dL (7-18); CALCIUM 9.1 MG/DL (8.5-10.1); CARBON DIOXIDE 23 MMOL/L (21-32); CHLORIDE 103 MMOL/L (98-107); CREATININE 2.1 MG/DL (0.55-1.30); POTASSIUM 5.4 MMOL/L (3.5-5.1); SODIUM 135 MMOL/L (136-145)
[2019-05-12 19:25] LABS: ALANINE AMINOTRANSFERASE 8 U/L (12-78); ALBUMIN/GLOBULIN RATIO 0.5 (1.0-2.7); ALKALINE PHOSPHATASE 78 U/L (46-116); ASPARTATE AMINO TRANSFERASE 20 U/L (15-37); BILIRUBIN,TOTAL 0.4 MG/DL (0.2-1.0)
--- NOTE | 2019-05-12 19:30 | NUR ---
ED Nurse Note: REctal and nasal swabs collected.
--- NOTE | 2019-05-12 19:42 | Emergency Room Report ---
History of Present Illness General Chief Complaint: Female Urogenital Problems Source: Patient, Family Member Present Illness HPI Disclaimer: Please note that this report is being documented using DRAGON technology. This can lead to erroneous entry secondary to incorrect interpretation by the dictating instrument. HPI: 73-year-old female with a history of rheumatoid arthritis and MAC presents for evaluation of right-sided flank pain and weakness. Symptoms have been present for 2 days. She was recently discharged from the hospital for an admission of failure to thrive, decreased intake, anemia and acute on chronic kidney injury. She was in her usual state of health until 2 days ago. No significant weakness, chills, subjective fevers and right-sided flank pain radiating down the right groin. Notes some dysuria but denies hematuria. Denies nausea, vomiting, chest pain, shortness of breath. Continues to complain of a intermittent cough which was present on her last admission. PMH: Mycobacterium avium complex infection, CKD, RA PSH: See chart Allergies: Denies Social Hx: Denies tobacco, drug or alcohol use Allergies: Coded Allergies: No Known Allergies (Unverified , 10/02/15) Patient History Last Menstrual Period: na Nursing Documentation-PMH Past Medical History: No History, Except For Hx Cardiac Problems: No Hx Cancer: No Hx Gastrointestinal Problems: Yes - ABD pain, pyleonephritis Hx Neurological Problems: Yes - OSTEOPOROSIS LOWER BACK, RA Hx Headaches: Yes Review of Systems All Other Systems: negative except mentioned in HPI Physical Exam Vital Signs Date Time Temp Pulse Resp B/P (MAP) Pulse Ox O2 Delivery O2 Flow Rate FiO2 05/12/19 18:30 99.7 69 16 117/67 (84) 96 Room Air General: Awake and alert, no acute distress HEENT: NC/AT. EOMI. dry mucous membranes Cardiovascular: RRR. S1 and S2 normal. No murmur appreciated Resp: Normal work of breathing. Intermittent cough. No wheezing, no crackles Abdomen: Abdomen is soft, nondistended. Nontender Skin: Intact. No abrasions, laceration or rash over the exposed skin MSK: Normal tone and bulk. Moving all extremities. No obvious deformity. Neuro: Awake and alert. Mentating appropriately. Back/Spine: Right-sided CVA tenderness, negative on left. Medical Decision Making Diagnostic Impression: Primary Impression: Renal failure (ARF), acute on chronic Additional Impressions: UTI (urinary tract infection) Anemia Hematuria ER Course 73-year-old female with recent admissions for acute on chronic kidney issues as well as urinary tract infections returns with similar symptoms complaining of right-sided flank pain. Lab work was obtained on her arrival. Shows her chronic anemia though her creatinine has increased to 2.1 from 1.5 on discharge. She has 2+ leukocyte esterase and 30-40 white cells in her urine. Will be treated with ceftriaxone. She will require readmission. IV fluids are running. Laboratory Tests Test 05/12/19 18:38 05/12/19 19:00 Urine Color Pale yellow Urine Appearance Clear Urine pH 6 (4.5-8.0) Urine Specific [place] 1.005 (1.005-1.035) Urine Protein 2+ (NEGATIVE) H Urine Glucose (UA) Negative (NEGATIVE) Urine Ketones Negative (NEGATIVE) Urine Blood 5+ (NEGATIVE) H Urine Nitrite Negative (NEGATIVE) Urine Bilirubin Negative (NEGATIVE) Urine Urobilinogen Normal MG/DL (0.0-1.0) Urine Leukocyte Esterase 2+ (NEGATIVE) H Urine RBC 30-40 /HPF (0 - 2) H Urine WBC 30-40 /HPF (0 - 2) H Urine Squamous Epithelial Cells None /LPF (NONE/OCC) Urine Bacteria Occasional /HPF (NONE) White Blood Count 7.8 K/UL (4.8-10.8) Red Blood Count 3.06 M/UL (4.20-5.40) L Hemoglobin 9.5 G/DL (12.0-16.0) L Hematocrit 28.5 % (37.0-47.0) L Mean Corpuscular Volume 93 FL (80-99) Mean Corpuscular Hemoglobin 31.0 PG (27.0-31.0) Mean Corpuscular Hemoglobin Concent 33.2 G/DL (32.0-36.0) Red Cell Distribution Width 11.7 % (11.6-14.8) Platelet Count 303 K/UL (150-450) Mean Platelet Volume 5.8 FL (6.5-10.1) L Neutrophils (%) (Auto) 76.6 % (45.0-75.0) H Lymphocytes (%) (Auto) 13.9 % (20.0-45.0) L Monocytes (%) (Auto) 8.5 % (1.0-10.0) Eosinophils (%) (Auto) 0.3 % (0.0-3.0) Basophils (%) (Auto) 0.7 % (0.0-2.0) Sodium Level 135 MMOL/L (136-145) L Potassium Level 5.4 MMOL/L (3.5-5.1) H Chloride Level 103 MMOL/L (98-107) Carbon Dioxide Level 23 MMOL/L (21-32) Anion Gap 9 mmol/L (5-15) Blood Urea Nitrogen 52 mg/dL (7-18) H Creatinine 2.1 MG/DL (0.55-1.30) H Estimate Glomerular Filtration Rate mL/min (>60) Glucose Level 102 MG/DL (74-106) Calcium Level 9.1 MG/DL (8.5-10.1) Total Bilirubin 0.4 MG/DL (0.2-1.0) Aspartate Amino Transferase (AST) 20 U/L (15-37) Alanine Aminotransferase (ALT) 8 U/L (12-78) L Alkaline Phosphatase 78 U/L (46-116) Total Protein 8.6 G/DL (6.4-8.2) H Albumin 3.0 G/DL (3.4-5.0) L Globulin 5.6 g/dL Albumin/Globulin Ratio 0.5 (1.0-2.7) L EKG Diagnostic Results EKG Time: 20:08 Rate: normal Rhythm: NSR ST Segments: no acute changes Other Impression Sinus rhythm, normal axis, normal intervals, no acute ST segment changes Rhythm Strip Diag. Results Rhythm Strip Time: 20:08 EP Interpretation: yes Rate: 70s Rhythm: NSR, no PVC's, no ectopy Reevaluation Time: 21:00 Last Vital Signs Date Time Temp Pulse Resp B/P (MAP) Pulse Ox O2 Delivery O2 Flow Rate FiO2 05/12/19 18:58 99.7 70 16 130/58 96 Room Air Reevaluation Impression Patient again shows evidence of an acute kidney injury on top of CKD. Her creatinine today is 2.1 with an elevated BUN at 52. Potassium is elevated 5.4 but there are no EKG changes. Urine again shows 5+ blood, 2+ leukocyte esterase , 30-40 white cells and occasional bacteria. We will again treat for urinary tract infection and possible pyelonephritis. IV fluids are continuing. Patient will be readmitted for ROLANDO and hyperkalemia Disposition: ADMITTED INPATIENT Condition: Serious Eben Delcid MD May 12, 2019 19:42
--- NOTE | 2019-05-12 20:00 | NUR ---
ED Nurse Note: Belongings sheet completed.
--- NOTE | 2019-05-12 20:58 | NUR ---
ED Nurse Note: Patient ambulated to restroom accompanied by her daughter.
--- NOTE | 2019-05-12 21:48 | NUR ---
ED Nurse Note: Second attempt to give report to 4E, will follow-up in 10 minutes, Patient's family at bedside. Patient is awake, alert and oriented x4.
--- NOTE | 2019-05-12 21:59 | NUR ---
ED Nurse Note: Called and rendered report to Ifrah CASTRO. Patient will be taken to floor in 15 minutes per receiving nurse request.
[2019-05-12] MEDS ORDERED: Miralax 17gm pkt ORAL PRN (22:00)
[2019-05-12] MEDS ORDERED: Morphine Sulfate 2mg/ml Inj(IV/IM USE ONLY) IVP PRN (22:00)
[2019-05-12] MEDS ORDERED: Albuterol/Ipratropium 3ml neb HHN PRN (22:00)
--- NOTE | 2019-05-12 22:20 | NUR ---
ED Nurse Note: Patient transported to floor by technical data analyst without incident. Report called in prior to transport.
--- NOTE | 2019-05-12 22:21 | NUR ---
NURSE NOTES: Received a report from GLORIA Owens. Awaiting for pt's arrival.
--- NOTE | 2019-05-12 22:32 | NUR ---
NURSE NOTES: Pt arrived in the unit. AAOX4. Able to make needs known. On room air. Iv site is patent and intact. Skin is intact. Bed in lowest position. Bed alarm is on. Call light within reach. Will continue to monitor.
[2019-05-12 22:35] VITALS: BP 129/85
[2019-05-12] MEDS ORDERED: Cefepime HCl 2 GM in D5W 110 ML IV ONE (23:00)
[2019-05-12] MEDS ORDERED: Vancomycin 750mg/NS 275ml IVPB ONE ×2 (23:00)
[2019-05-13] VITALS: BP 99/68
[2019-05-13] MEDS ORDERED: Vancomycin 1 GM in D5W 275 ML IV SCH (00:30)
[2019-05-13 04:00] VITALS: BP 111/61
[2019-05-13 06:50] LABS: HEMATOCRIT 23.7 % (37.0-47.0); HEMOGLOBIN 7.8 G/DL (12.0-16.0); MEAN CORPUSCULAR VOLUME 94 FL (80-99); PLATELET COUNT 333 K/UL (150-450); RED BLOOD COUNT 2.53 M/UL (4.20-5.40); RED CELL DISTRIBUTION WIDTH 12.5 % (11.6-14.8); WHITE BLOOD COUNT 7.5 K/UL (4.8-10.8)
[2019-05-13 07:20] LABS: ALANINE AMINOTRANSFERASE 10 U/L (12-78); ALBUMIN 2.5 G/DL (3.4-5.0); ALBUMIN/GLOBULIN RATIO 0.5 (1.0-2.7); ALKALINE PHOSPHATASE 70 U/L (46-116); ANION GAP 9 mmol/L (5-15); ASPARTATE AMINO TRANSFERASE 20 U/L (15-37); BILIRUBIN,TOTAL 0.5 MG/DL (0.2-1.0); BLOOD UREA NITROGEN 41 mg/dL (7-18); CALCIUM 8.5 MG/DL (8.5-10.1); CARBON DIOXIDE 21 MMOL/L (21-32); CHLORIDE 109 MMOL/L (98-107); CREATININE 1.9 MG/DL (0.55-1.30); POTASSIUM 4.6 MMOL/L (3.5-5.1); SODIUM 139 MMOL/L (136-145)
--- NOTE | 2019-05-13 07:25 | NUR ---
HAND-OFF: Report given to Cruz David RN.
--- NOTE | 2019-05-13 07:45 | NUR ---
NURSE NOTES: Received patient on bed, awake. IV site intact and patent. Bed in low and locked position, call light in reach. No signs of respiratory distress or pain. Room board updated, will continue to monitor.
[2019-05-13 08:00] VITALS: BP 116/58
[2019-05-13] MEDS: Heparin 5000 units/ml inj SUBQ SCH ×2 (08:53→20:20)
--- NOTE | 2019-05-13 10:45 | NUR ---
PT EVALUATION NOTE Patient seen for initial evaluation. Patient is independent/supervised with all functional mobility without an assistive device. Skilled inpatient PT intervention not indicated, patient discharged from PT. Cruz CASTRO notified, patient cleared to ambulate with nursing supervision. Addendum: 05/13/19 at 1137 by MARILIN RINALDI PT Amended: Links added.
--- NOTE | 2019-05-13 11:00 | History and Physical Report ---
DATE OF ADMISSION: 05/12/2019 DATE AND TIME SEEN: 05/13/2019 at 9 a.m. CONSULTANTS: 1. Stephan Perez M.D. 2. Isma Unger M.D. 3. Ladarius High M.D. CHIEF COMPLAINT: Flank pain, renal insufficiency, and pyelonephritis. BRIEF HISTORY: This is a 73-year-old female, who lives at home, who was recently hospitalized, went home, was feeling better for about three days and started having some flank pain, but no nausea, vomiting, chest pain, or shortness of breath. The patient came to [facility] yesterday and diagnosed with flank pain, ROLANDO, pyelonephritis and admitted to medical floor for further treatment. Currently, calm in bed, feeling little bit better with antibiotics and IV fluids. No complaint. REVIEW OF SYSTEMS: No chest pain. No shortness of breath. No nausea, vomiting, or diarrhea. PAST MEDICAL HISTORY: Anemia, malnutrition, possible renal failure. PAST SURGICAL HISTORY: None. ALLERGIES: Denies. MEDICATIONS: Include zolpidem, heparin, vancomycin, Tylenol, morphine, Zofran, and temazepam. SOCIAL HISTORY: No smoking. No alcohol. No intravenous drug abuse. FAMILY HISTORY: Noncontributory. PHYSICAL EXAMINATION: GENERAL: Calm in bed, oriented x2, in no acute distress. VITAL SIGNS: Temperature is 97 degrees, pulse 80, respirations 16, and blood pressure 111/61. CARDIOVASCULAR: No murmurs. LUNGS: Distant and clear. ABDOMEN: Bowel sounds positive. Nontender. Nondistended. EXTREMITIES: No cyanosis, clubbing, or edema. NEUROLOGIC: The patient moves all extremities, slightly weak. LABORATORY AND DIAGNOSTIC DATA: Labs at this time show hemoglobin 7.8, otherwise CBC is normal. Chloride 109, BUN and creatinine 41/1.9. Albumin 2.5. Urinalysis, 2+ leukocyte esterase. ASSESSMENT: 1. Flank pain. 2. UTI. 3. Pyelonephritis. 4. ROLANDO. 5. Renal failure. 6. Weakness. PLAN: 1. PT and dietary evaluation. 2. Check labs in the morning. 3. CBC and BMP in the morning. 4. IV fluids. 5. Antibiotics per Infectious Disease. 6. Resume home medications. 7. Pain control. Isaak Herrera D.O. DR: FRANKLYN JOB#: [id number] CC:
[2019-05-13 12:00] VITALS: BP_SYST 114; BP_SYST 192; BP_DIAS 57; BP_DIAS 85
--- NOTE | 2019-05-13 12:21 | Consultation ---
History of Present Illness General Date patient seen: May 13, 2019 Chief Complaint: Female Urogenital Problems Present Illness HPI 73-year-old female with a history of rheumatoid arthritis, MAC emphysema recently discharged from [facility] presented again for evaluation of right-sided flank pain and weakness for 2 days. No significant weakness, chills, subjective fevers and right-sided flank pain radiating down the right groin. Notes some dysuria but denies hematuria. Denies nausea, vomiting, chest pain, shortness of breath. Continues to complain of a intermittent cough which was present on her last admission as well. Allergies: Coded Allergies: No Known Allergies (Unverified , 10/02/15) Medication History Scheduled Aspirin* (Aspir 81*), 81 MG ORAL DAILY, (Reported) Calcium Carbonate (Calcium), 500 MG PO DAILY, (Reported) Calcium Carbonate/Vitamin D3 (Calcium + Vitamin D Tablet), 1 EACH PO BID, ( Reported) Hydroxychloroquine Sulfate (Hydroxychloroquine Sulfate), 200 MG PO DAILY, ( Reported) Multivits-Min/Iron/FA/Lutein (Centrum Silver Women Tablet), 1 EACH PO DAILY, ( Reported) Scheduled PRN Ibuprofen* (Advil*), Unknown Dose ORAL PRN PRN for Mild Pain/Temp > 100.5, ( Reported) Patient History Healthcare decision maker Resuscitation status Full Code Advanced Directive on File Past Medical/Surgical History Past Medical/Surgical History: (1) Severe anemia (2) Emphysema lung (3) Severe protein-calorie malnutrition (4) TEGAN (mycobacterium avium-intracellulare) Review of Systems All Other Systems: negative except mentioned in HPI Physical Exam General Appearance: cachetic, thin Lines, tubes and drains: peripheral HEENT: normocephalic, atraumatic Neck: non-tender, normal alignment Respiratory/Chest: chest wall non-tender, lungs clear Breasts: no masses Cardiovascular/Chest: normal peripheral pulses Abdomen: normal bowel sounds, non tender Genitourinary/Rectal: normal genital exam, heme negative stool Extremities: normal range of motion, normal inspection Last 24 Hour Vital Signs Date Time Temp Pulse Resp B/P (MAP) Pulse Ox O2 Delivery O2 Flow Rate FiO2 05/13/19 08:00 98.0 82 15 116/58 (77) 95 05/13/19 04:00 97.2 80 16 111/61 (78) 95 05/13/19 00:00 99.1 78 16 99/68 (78) 95 05/12/19 22:59 Room Air 05/12/19 22:35 99.4 73 16 129/85 (100) 95 05/12/19 22:20 99.7 70 16 130/58 96 Room Air 05/12/19 18:58 99.7 70 16 130/58 96 Room Air 05/12/19 18:30 99.7 69 16 117/67 (84) 96 Room Air Intake and Output 05/12/19 05/13/19 19:00 07:00 Intake Total 2000 ml Balance 2000 ml Intake IV Total 2000 ml # Voids 2 Laboratory Tests Test 05/12/19 18:38 05/12/19 19:00 05/13/19 05:35 Urine Color Pale yellow Urine Appearance Clear Urine pH 6 (4.5-8.0) Urine Specific Reed 1.005 (1.005-1.035) Urine Protein 2+ (NEGATIVE) H Urine Glucose (UA) Negative (NEGATIVE) Urine Ketones Negative (NEGATIVE) Urine Blood 5+ (NEGATIVE) H Urine Nitrite Negative (NEGATIVE) Urine Bilirubin Negative (NEGATIVE) Urine Urobilinogen Normal MG/DL (0.0-1.0) Urine Leukocyte Esterase 2+ (NEGATIVE) H Urine RBC 30-40 /HPF (0 - 2) H Urine WBC 30-40 /HPF (0 - 2) H Urine Squamous Epithelial Cells None /LPF (NONE/OCC) Urine Bacteria Occasional /HPF (NONE) White Blood Count 7.8 K/UL (4.8-10.8) 7.5 K/UL (4.8-10.8) Red Blood Count 3.06 M/UL (4.20-5.40) L 2.53 M/UL (4.20-5.40) L Hemoglobin 9.5 G/DL (12.0-16.0) L 7.8 G/DL (12.0-16.0) L Hematocrit 28.5 % (37.0-47.0) L 23.7 % (37.0-47.0) L Mean Corpuscular Volume 93 FL (80-99) 94 FL (80-99) Mean Corpuscular Hemoglobin 31.0 PG (27.0-31.0) 30.7 PG (27.0-31.0) Mean Corpuscular Hemoglobin Concent 33.2 G/DL (32.0-36.0) 32.7 G/DL (32.0-36.0) Red Cell Distribution Width 11.7 % (11.6-14.8) 12.5 % (11.6-14.8) Platelet Count 303 K/UL (150-450) 333 K/UL (150-450) Mean Platelet Volume 5.8 FL (6.5-10.1) L 5.1 FL (6.5-10.1) L Neutrophils (%) (Auto) 76.6 % (45.0-75.0) H % (45.0-75.0) Lymphocytes (%) (Auto) 13.9 % (20.0-45.0) L % (20.0-45.0) Monocytes (%) (Auto) 8.5 % (1.0-10.0) % (1.0-10.0) Eosinophils (%) (Auto) 0.3 % (0.0-3.0) % (0.0-3.0) Basophils (%) (Auto) 0.7 % (0.0-2.0) % (0.0-2.0) Sodium Level 135 MMOL/L (136-145) L 139 MMOL/L (136-145) Potassium Level 5.4 MMOL/L (3.5-5.1) H 4.6 MMOL/L (3.5-5.1) Chloride Level 103 MMOL/L (98-107) 109 MMOL/L (98-107) H Carbon Dioxide Level 23 MMOL/L (21-32) 21 MMOL/L (21-32) Anion Gap 9 mmol/L (5-15) 9 mmol/L (5-15) Blood Urea Nitrogen 52 mg/dL (7-18) H 41 mg/dL (7-18) H Creatinine 2.1 MG/DL (0.55-1.30) H 1.9 MG/DL (0.55-1.30) H Estimat Glomerular Filtration Rate mL/min (>60) mL/min (>60) Glucose Level 102 MG/DL (74-106) 92 MG/DL (74-106) Calcium Level 9.1 MG/DL (8.5-10.1) 8.5 MG/DL (8.5-10.1) Total Bilirubin 0.4 MG/DL (0.2-1.0) 0.5 MG/DL (0.2-1.0) Aspartate Amino Transf (AST/SGOT) 20 U/L (15-37) 20 U/L (15-37) Alanine Aminotransferase (ALT/SGPT) 8 U/L (12-78) L 10 U/L (12-78) L Alkaline Phosphatase 78 U/L (46-116) 70 U/L (46-116) Total Protein 8.6 G/DL (6.4-8.2) H 7.8 G/DL (6.4-8.2) Albumin 3.0 G/DL (3.4-5.0) L 2.5 G/DL (3.4-5.0) L Globulin 5.6 g/dL 5.3 g/dL Albumin/Globulin Ratio 0.5 (1.0-2.7) L 0.5 (1.0-2.7) L Differential Total Cells Counted 100 Neutrophils % (Manual) 83 % (45-75) H Lymphocytes % (Manual) 12 % (20-45) L Monocytes % (Manual) 4 % (1-10) Eosinophils % (Manual) 1 % (0-3) Basophils % (Manual) 0 % (0-2) Band Neutrophils 0 % (0-8) Platelet Estimate Adequate Platelet Morphology Normal Microbiology Date/Time Source Procedure Growth Status 05/12/19 18:38 Urine,Clean Catch Urine Culture - Preliminary NO GROWTH Resulted 05/12/19 19:30 Rectum Received Height (Feet): 5 Height (Inches): 1.00 Weight (Pounds): 95 Medications Current Medications Medications (Trade) Dose Ordered Sig/Floyd Route PRN Reason Start Time Stop Time Status Last Admin Dose Admin Acetaminophen (Tylenol) 650 mg Q4H PRN ORAL fever 05/12/19 22:00 06/11/19 21:59 Albuterol/ Ipratropium (Albuterol/ Ipratropium) 3 ml Q4H PRN HHN Shortness of Breath 05/12/19 22:00 05/17/19 21:59 Cefepime HCl 1 gm/ Dextrose 55 ml @ 110 mls/hr Q24H IVPB 05/13/19 11:00 05/20/19 10:59 Heparin Sodium (Porcine) (Heparin 5000 units/ml) 5,000 units EVERY 12 HOURS SUBQ 05/13/19 09:00 06/12/19 08:59 05/13/19 08:53 Morphine Sulfate (Morphine Sulfate) 2 mg Q4H PRN IVP Moderate Pain (Pain Scale 4-6) 05/12/19 22:00 05/19/19 21:59 Ondansetron HCl (Zofran) 4 mg Q6H PRN IVP Nausea & Vomiting 05/12/19 22:00 06/11/19 21:59 Polyethylene Glycol (Miralax) 17 gm DAILYPRN PRN ORAL Constipation 05/12/19 22:00 06/11/19 21:59 Temazepam (Restoril) 15 mg HSPRN PRN ORAL Insomnia 05/12/19 22:00 05/19/19 21:59 Vancomycin HCl (Vanco rx to dose) 1 ea DAILY PRN MISC Per rx protocol 05/12/19 22:15 06/11/19 22:14 Assessment/Plan Problem List: (1) UTI (urinary tract infection) ICD Codes: N39.0 - Urinary tract infection, site not specified SNOMED: 33077496 (2) Severe anemia ICD Codes: D64.9 - Anemia, unspecified SNOMED: 295206863 (3) Renal failure (ARF), acute on chronic ICD Codes: N17.9 - Acute kidney failure, unspecified; N18.9 - Chronic kidney disease, unspecified SNOMED: 698586806 (4) Severe protein-calorie malnutrition ICD Codes: E43 - Unspecified severe protein-calorie malnutrition SNOMED: 416097993, 102622552, 621024578 (5) Emphysema lung ICD Codes: J43.9 - Emphysema, unspecified SNOMED: 65266328 Assessment/Plan: pierson culture iv abx check electrolytes iv fluids renal studies symptomatic treatment Stephan ePrez MD May 13, 2019 12:21
[2019-05-13] MEDS: Cefepime 1gm in D5W 55ml IVPB SCH (13:03)
--- NOTE | 2019-05-13 14:55 | Cardiology Report ---
APPROVED REPORT EKG Measurement Heart [id number] IN [id number] Sinus rhythm with short IN Otherwise normal ECG
--- NOTE | 2019-05-13 15:09 | Consultation ---
Consult Note Consult Note asked to eval for renal failure known to me from her previous admissions HPI: 73-year-old female with a history of rheumatoid arthritis and MAC presents for evaluation of right-sided flank pain and weakness. Symptoms have been present for 2 days. She was recently discharged from the hospital for an admission of failure to thrive, decreased intake, anemia and acute on chronic kidney injury. She was in her usual state of health until 2 days ago. No significant weakness, chills, subjective fevers and right-sided flank pain radiating down the right groin. Notes some dysuria but denies hematuria. Denies nausea, vomiting, chest pain, shortness of breath. Continues to complain of a intermittent cough which was present on her last admission. PMH: Mycobacterium avium complex infection, CKD, RA Hx Gastrointestinal Problems: Yes - ABD pain, pyleonephritis Hx Neurological Problems: Yes - OSTEOPOROSIS LOWER BACK, RA Hx Headaches: Yes examined data reviewed Assessment/Plan (1) ROLANDO (acute kidney injury) (2) Renal failure (ARF), acute on chronic (3) Severe anemia (4) Protein calorie mal nutrition (5) UTI Others: h/o bronchitis h/o abdominal pain and nausea, possibly enteritis ( by CT scan) RA Plan Avoid nephrotoxics hydrate- monitor renal parameters check ferritin and Iron panel Isma Unger MD May 13, 2019 15:09
[2019-05-13] MEDS ORDERED: D5NS 1,000 ML IV ONE (15:15)
--- NOTE | 2019-05-13 15:20 | Consultation ---
Consult Note Consult Note # [id number] Ladarius High MD May 13, 2019 15:20
[2019-05-13 16:00] VITALS: BP 104/64
--- NOTE | 2019-05-13 16:51 | NUR ---
CHARGE NURSE NOTE: Spoke with regarding H@H .8. No blood transfusion order.
--- NOTE | 2019-05-13 19:36 | NUR ---
NURSE NOTES: Received a report from GLORIA Arroyo. Pt is in stable condition. AAOX4. Able to make needs known. Family members at the bedside. IV site is patent and intact. Bed in lowest position. Bed alarm is on. Call light within reach. Will continue to monitor.
--- NOTE | 2019-05-13 19:38 | NUR ---
HAND-OFF: Report given to GLORIA Thompson.
[2019-05-13 20:00] VITALS: BP 104/56
--- NOTE | 2019-05-13 20:26 | NUR ---
CASE MANAGEMENT: REVIEW 73Y/FEMALE PRESENTED TO ED FROM HOME CC: RIGHT FLANK AREA AND LATERAL SIDE [id number] SI: UTI . ROLANDO T 99.7 HR 70 RR 16 BP 99/68 SAT 95% ROOM AIR H/H 9.5/28.5 NA 135 K 5.4 BUN 52 CR 2.1 IS: NS IVF BOLUS X1 VANCO IV X1 CEFEPIME IV X1 PATIENT ADMITTED TO MED/SURG UNIT 05/12/2019 DCP: PATIENT IS FROM HOME
--- NOTE | 2019-05-13 22:15 | Consultation ---
DATE OF CONSULTATION: 05/13/2019 INFECTIOUS DISEASE CONSULTATION CONSULTING PHYSICIAN: Ladarius High M.D REASON FOR CONSULT: UTI, pyelonephritis, antibiotic management. HISTORY OF PRESENT ILLNESS: This is a 73-year-old female, who was admitted with impression of UTI and pyelonephritis. Infectious Disease consultation has been requested for further evaluation of the patient's antibiotic management. PAST MEDICAL HISTORY: Significant for: 1. Rheumatoid arthritis. 2. History of pulmonary MAC. 3. History of empyema. 4. History of . ALLERGIES: No known drug allergies. SOCIAL HISTORY: The patient lives in a mcc. FAMILY HISTORY: Not contributing. REVIEW OF SYSTEMS: A 10-point was done, except what has been mentioned above is negative. The patient has mild right flank tenderness. No nausea or vomiting. No significant cough. MEDICATIONS: The patient is on IV cefepime and vancomycin. PHYSICAL EXAMINATION: VITAL SIGNS: Temperature 99.7, pulse 86, respiratory rate 18, blood pressure 192/85. HEENT: No pale conjunctivae. No icterus. NECK: No lymphadenopathy. CHEST: Clear. HEART: S1, S2. ABDOMEN: Soft, nontender. Mild right flank tenderness. EXTREMITIES: No cyanosis at this time. NEUROLOGIC: Awake and alert. LABORATORY AND DIAGNOSTIC DATA: White blood cells 7.5, hemoglobin 7.8, platelets 333. UA shows 30 to 40 white blood cells, 30 to 40 red blood cells. BUN 41, creatinine 1.9. ALT, AST, and alkaline phosphatase unremarkable. Urine culture pending. CT of the abdomen on 05/01/2019 showed no evidence of hydronephrosis. ASSESSMENT: The patient is a 73-year-old female with: 1. Low white blood cells. 2. Afebrile. 3. UTIs. 4. Pyelonephritis. 5. Pyuria. 6. Rule out bacteremia. PLAN: 1. We will continue the patient is on cefepime day #1. 2. Discontinue IV vancomycin day #1. 3. Monitor CBC. 4. Monitor BMP. 5. Monitor cultures (blood, urine). 6. We will monitor the patient's clinical course and laboratories and based on those, we will do further recommendation. Thank you, Dr. Isaak Herrera, for allowing me to participate in the care of this patient. I will follow the patient with you during this hospitalization. Ladarius High M.D. DR: CRYSTAL JOB#: [id number] CC:
[2019-05-14] VITALS: BP 121/69
[2019-05-14 04:00] VITALS: BP 120/70
[2019-05-14 06:08] LABS: BASOPHILS % (AUTO) 0.7 % (0.0-2.0); EOSINOPHILS % (AUTO) 2.1 % (0.0-3.0); HEMATOCRIT 25.3 % (37.0-47.0); HEMOGLOBIN 8.3 G/DL (12.0-16.0); MEAN CORPUSCULAR VOLUME 94 FL (80-99); MONOCYTES % (AUTO) 11.7 % (1.0-10.0); NEUTROPHILS % (AUTO) 69.4 % (45.0-75.0); PLATELET COUNT 267 K/UL (150-450); RED BLOOD COUNT 2.69 M/UL (4.20-5.40); RED CELL DISTRIBUTION WIDTH 12.5 % (11.6-14.8); WHITE BLOOD COUNT 4.6 K/UL (4.8-10.8)
[2019-05-14 06:56] LABS: % IRON SATURATION 18 % (15-50); IRON 28 ug/dL (50-175); TOTAL IRON BINDING CAPACITY 156 ug/dL (250-450)
[2019-05-14 06:58] LABS: ALANINE AMINOTRANSFERASE 11 U/L (12-78); ALBUMIN 2.2 G/DL (3.4-5.0); ALBUMIN/GLOBULIN RATIO 0.4 (1.0-2.7); ALKALINE PHOSPHATASE 65 U/L (46-116); ANION GAP 8 mmol/L (5-15); ASPARTATE AMINO TRANSFERASE 19 U/L (15-37); BILIRUBIN,TOTAL 0.3 MG/DL (0.2-1.0); BLOOD UREA NITROGEN 39 mg/dL (7-18); CALCIUM 8.1 MG/DL (8.5-10.1); CARBON DIOXIDE 22 MMOL/L (21-32); CHLORIDE 111 MMOL/L (98-107); CHOLESTEROL 108 MG/DL (< 200); CREATININE 1.9 MG/DL (0.55-1.30); FERRITIN 137 NG/ML (8-388); GAMMA GLUTAMYL TRANSPEPTIDASE 13 U/L (5-85); HDL CHOLESTEROL 29 MG/DL (40-60); PHOSPHORUS 3.5 MG/DL (2.5-4.9); POTASSIUM 4.6 MMOL/L (3.5-5.1); SODIUM 141 MMOL/L (136-145); TRIGLYCERIDES 92 MG/DL (30-150)
--- NOTE | 2019-05-14 07:00 | NUR ---
HAND-OFF: Report given to GLORIA Giron.
--- NOTE | 2019-05-14 07:56 | NUR ---
NURSE NOTES: Pt resting in bed. awake, A/O x 4, calm and cooperative. denies pain, no SOB noted. tolerating diet well. no N/V. call light within reach. bed alarm on. fall precaution maintained. will continue to monitor
[2019-05-14 08:00] VITALS: BP 93/54
[2019-05-14] MEDS: Heparin 5000 units/ml inj SUBQ SCH ×2 (09:03→20:51)
[2019-05-14] MEDS: Cefepime 1gm in D5W 55ml IVPB SCH (11:00)
[2019-05-14 12:00] VITALS: BP 96/56
--- NOTE | 2019-05-14 12:38 | Infectious Diseases Prog Note ---
Assessment/Plan Assessment/Plan A: The patient is a 73-year-old female with: nl WBC Afebrile. UTIs / Pyelonephritis UCx : [address] of the abdomen on 05/01/2019 showed no evidence of hydronephrosis Pyuria Rule out bacteremia. History of pulmonary MAC. Rheumatoid arthritis. PLAN: continue the patient is on cefepime day # 2 05/13 Sp IV vancomycin day #1 monitor CBC Monitor BMP. Monitor cultures (blood, urine). Subjective Allergies: Coded Allergies: No Known Allergies (Unverified , 10/02/15) Subjective Afebrile Objective Vital Signs Last 24 Hour Vital Signs Date Time Temp Pulse Resp B/P (MAP) Pulse Ox O2 Delivery O2 Flow Rate FiO2 05/14/19 12:00 97.8 69 20 96/56 (69) 98 05/14/19 09:00 Room Air 05/14/19 08:05 71 18 97 Room Air 21 05/14/19 08:00 98.1 76 20 93/54 (67) 96 05/14/19 04:00 97.3 60 16 120/70 (87) 97 05/14/19 00:00 98.1 68 16 121/69 (86) 98 05/13/19 21:00 Room Air 05/13/19 20:00 99.0 71 16 104/56 (72) 97 05/13/19 18:28 99.1 05/13/19 16:00 99.4 74 20 104/64 (77) 94 Height (Feet): 5 Height (Inches): 1.00 Weight (Pounds): 95 Respiratory/Chest: normal breath sounds Cardiovascular: regular rhythm Abdomen: non distended Microbiology Date/Time Source Procedure Growth Status 05/12/19 18:38 Urine,Clean Catch Urine Culture - Final Gram Negative Poncho Complete 05/12/19 19:30 Rectum Received Laboratory Tests Test 05/14/19 04:48 White Blood Count 4.6 K/UL (4.8-10.8) L Red Blood Count 2.69 M/UL (4.20-5.40) L Hemoglobin 8.3 G/DL (12.0-16.0) L Hematocrit 25.3 % (37.0-47.0) L Mean Corpuscular Volume 94 FL (80-99) Mean Corpuscular Hemoglobin 30.8 PG (27.0-31.0) Mean Corpuscular Hemoglobin Concent 32.7 G/DL (32.0-36.0) Red Cell Distribution Width 12.5 % (11.6-14.8) Platelet Count 267 K/UL (150-450) Mean Platelet Volume 5.2 FL (6.5-10.1) L Neutrophils (%) (Auto) 69.4 % (45.0-75.0) Lymphocytes (%) (Auto) 16.0 % (20.0-45.0) L Monocytes (%) (Auto) 11.7 % (1.0-10.0) H Eosinophils (%) (Auto) 2.1 % (0.0-3.0) Basophils (%) (Auto) 0.7 % (0.0-2.0) Sodium Level 141 MMOL/L (136-145) Potassium Level 4.6 MMOL/L (3.5-5.1) Chloride Level 111 MMOL/L (98-107) H Carbon Dioxide Level 22 MMOL/L (21-32) Anion Gap 8 mmol/L (5-15) Blood Urea Nitrogen 39 mg/dL (7-18) H Creatinine 1.9 MG/DL (0.55-1.30) H Estimat Glomerular Filtration Rate mL/min (>60) Glucose Level 94 MG/DL (74-106) Uric Acid 5.4 MG/DL (2.6-7.2) Calcium Level 8.1 MG/DL (8.5-10.1) L Phosphorus Level 3.5 MG/DL (2.5-4.9) Magnesium Level 1.8 MG/DL (1.8-2.4) Iron Level 28 ug/dL (50-175) L Total Iron Binding Capacity 156 ug/dL (250-450) L Percent Iron Saturation 18 % (15-50) Unsaturated Iron Binding 128 ug/dL (112-346) Ferritin 137 NG/ML (8-388) Total Bilirubin 0.3 MG/DL (0.2-1.0) Gamma Glutamyl Transpeptidase 13 U/L (5-85) Aspartate Amino Transf (AST/SGOT) 19 U/L (15-37) Alanine Aminotransferase (ALT/SGPT) 11 U/L (12-78) L Alkaline Phosphatase 65 U/L (46-116) C-Reactive Protein, Quantitative 8.2 mg/dL (0.00-0.90) H Pro-B-Type Natriuretic Peptide 2044 pg/mL (0-125) H Total Protein 7.1 G/DL (6.4-8.2) Albumin 2.2 G/DL (3.4-5.0) L Globulin 4.9 g/dL Albumin/Globulin Ratio 0.4 (1.0-2.7) L Triglycerides Level 92 MG/DL (30-150) Cholesterol Level 108 MG/DL (< 200) LDL Cholesterol 64 mg/dL (<100) HDL Cholesterol 29 MG/DL (40-60) L Cholesterol/HDL Ratio 3.7 (3.3-4.4) Vitamin B12 Level 495 PG/ML (193-986) Folate 11.2 NG/ML (8.6-58.9) Thyroid Stimulating Hormone (TSH) 3.279 uiU/mL (0.358-3.740) Free Thyroxine 1.20 NG/DL (0.76-1.46) Free Triiodothyronine 1.0 pg/mL (2.3-4.2) L Current Medications Medications (Trade) Dose Ordered Sig/Floyd Route PRN Reason Start Time Stop Time Status Last Admin Dose Admin Acetaminophen (Tylenol) 650 mg Q4H PRN ORAL fever 05/12/19 22:00 06/11/19 21:59 05/13/19 17:58 Albuterol/ Ipratropium (Albuterol/ Ipratropium) 3 ml Q4H PRN HHN Shortness of Breath 05/12/19 22:00 05/17/19 21:59 Cefepime HCl 1 gm/ Dextrose 55 ml @ 110 mls/hr Q24H IVPB 05/13/19 11:00 05/20/19 10:59 05/14/19 11:00 Heparin Sodium (Porcine) (Heparin 5000 units/ml) 5,000 units EVERY 12 HOURS SUBQ 05/13/19 09:00 06/12/19 08:59 05/14/19 09:03 Morphine Sulfate (Morphine Sulfate) 2 mg Q4H PRN IVP Moderate Pain (Pain Scale 4-6) 05/12/19 22:00 05/19/19 21:59 Ondansetron HCl (Zofran) 4 mg Q6H PRN IVP Nausea & Vomiting 05/12/19 22:00 06/11/19 21:59 Polyethylene Glycol (Miralax) 17 gm DAILYPRN PRN ORAL Constipation 05/12/19 22:00 06/11/19 21:59 Temazepam (Restoril) 15 mg HSPRN PRN ORAL Insomnia 05/12/19 22:00 05/19/19 21:59 Ladarius High MD May 14, 2019 12:38
--- NOTE | 2019-05-14 14:13 | Nephrology Progress Note ---
Assessment/Plan Problem List: (1) ROLANDO (acute kidney injury) (2) Renal failure (ARF), acute on chronic (3) Anemia (4) Severe protein-calorie malnutrition Assessment (1) ROLANDO (acute kidney injury) (2) Renal failure (ARF), acute on chronic (3) Severe anemia (4) Protein calorie mal nutrition (5) UTI Others: h/o bronchitis h/o abdominal pain and nausea, possibly enteritis ( by CT scan) RA Plan Plan Avoid nephrotoxics hydrate- NS monitor renal parameters check ferritin and Iron panel Objective Objective Last 24 Hour Vital Signs Date Time Temp Pulse Resp B/P (MAP) Pulse Ox O2 Delivery O2 Flow Rate FiO2 05/14/19 12:00 97.8 69 20 96/56 (69) 98 05/14/19 09:00 Room Air 05/14/19 08:05 71 18 97 Room Air 21 05/14/19 08:00 98.1 76 20 93/54 (67) 96 05/14/19 04:00 97.3 60 16 120/70 (87) 97 05/14/19 00:00 98.1 68 16 121/69 (86) 98 05/13/19 21:00 Room Air 05/13/19 20:00 99.0 71 16 104/56 (72) 97 05/13/19 18:28 99.1 05/13/19 16:00 99.4 74 20 104/64 (77) 94 Intake and Output 05/13/19 05/14/19 19:00 07:00 Intake Total 255 ml 500 ml Balance 255 ml 500 ml Intake IV Total 255 ml 500 ml # Voids 1 Laboratory Tests 05/14/19 04:48: White Blood Count 4.6L, Red Blood Count 2.69L, Hemoglobin 8.3L, Hematocrit 25.3L , Mean Corpuscular Volume 94, Mean Corpuscular Hemoglobin 30.8, Mean Corpuscular Hemoglobin Concent 32.7, Red Cell Distribution Width 12.5, Platelet Count 267, Mean Platelet Volume 5.2L, Neutrophils (%) (Auto) 69.4, Lymphocytes ( %) (Auto) 16.0L, Monocytes (%) (Auto) 11.7H, Eosinophils (%) (Auto) 2.1, Basophils (%) (Auto) 0.7, Sodium Level 141, Potassium Level 4.6, Chloride Level 111H, Carbon Dioxide Level 22, Anion Gap 8, Blood Urea Nitrogen 39H, Creatinine 1.9H, Estimat Glomerular Filtration Rate , Glucose Level 94, Uric Acid 5.4, Calcium Level 8.1L, Phosphorus Level 3.5, Magnesium Level 1.8, Iron Level 28L, Total Iron Binding Capacity 156L, Percent Iron Saturation 18, Unsaturated Iron Binding 128, Ferritin 137, Total Bilirubin 0.3, Gamma Glutamyl Transpeptidase 13 , Aspartate Amino Transf (AST/SGOT) 19, Alanine Aminotransferase (ALT/SGPT) 11L , Alkaline Phosphatase 65, C-Reactive Protein, Quantitative 8.2H, Pro-B-Type Natriuretic Peptide 2044H, Total Protein 7.1, Albumin 2.2L, Globulin 4.9, Albumin/Globulin Ratio 0.4L, Triglycerides Level 92, Cholesterol Level 108, LDL Cholesterol 64, HDL Cholesterol 29L, Cholesterol/HDL Ratio 3.7, Vitamin B12 Level 495, Folate 11.2, Thyroid Stimulating Hormone (TSH) 3.279, Free Thyroxine 1.20, Free Triiodothyronine 1.0L Height (Feet): 5 Height (Inches): 1.00 Weight (Pounds): 95 Isma Unger MD May 14, 2019 14:13
--- NOTE | 2019-05-14 14:34 | Consultation ---
History of Present Illness General Chief Complaint: Female Urogenital Problems Present Illness Allergies: Coded Allergies: No Known Allergies (Unverified , 10/02/15) Medication History Scheduled Aspirin* (Aspir 81*), 81 MG ORAL DAILY, (Reported) Calcium Carbonate (Calcium), 500 MG PO DAILY, (Reported) Calcium Carbonate/Vitamin D3 (Calcium + Vitamin D Tablet), 1 EACH PO BID, ( Reported) Hydroxychloroquine Sulfate (Hydroxychloroquine Sulfate), 200 MG PO DAILY, ( Reported) Multivits-Min/Iron/FA/Lutein (Centrum Silver Women Tablet), 1 EACH PO DAILY, ( Reported) Scheduled PRN Ibuprofen* (Advil*), Unknown Dose ORAL PRN PRN for Mild Pain/Temp > 100.5, ( Reported) Patient History Healthcare decision maker Resuscitation status Full Code Advanced Directive on File Physical Exam Last 24 Hour Vital Signs Date Time Temp Pulse Resp B/P (MAP) Pulse Ox O2 Delivery O2 Flow Rate FiO2 05/14/19 12:00 97.8 69 20 96/56 (69) 98 05/14/19 09:00 Room Air 05/14/19 08:05 71 18 97 Room Air 21 05/14/19 08:00 98.1 76 20 93/54 (67) 96 05/14/19 04:00 97.3 60 16 120/70 (87) 97 05/14/19 00:00 98.1 68 16 121/69 (86) 98 05/13/19 21:00 Room Air 05/13/19 20:00 99.0 71 16 104/56 (72) 97 05/13/19 18:28 99.1 05/13/19 16:00 99.4 74 20 104/64 (77) 94 Intake and Output 05/13/19 05/14/19 19:00 07:00 Intake Total 255 ml 500 ml Balance 255 ml 500 ml Intake IV Total 255 ml 500 ml # Voids 1 Laboratory Tests Test 05/14/19 04:48 White Blood Count 4.6 K/UL (4.8-10.8) L Red Blood Count 2.69 M/UL (4.20-5.40) L Hemoglobin 8.3 G/DL (12.0-16.0) L Hematocrit 25.3 % (37.0-47.0) L Mean Corpuscular Volume 94 FL (80-99) Mean Corpuscular Hemoglobin 30.8 PG (27.0-31.0) Mean Corpuscular Hemoglobin Concent 32.7 G/DL (32.0-36.0) Red Cell Distribution Width 12.5 % (11.6-14.8) Platelet Count 267 K/UL (150-450) Mean Platelet Volume 5.2 FL (6.5-10.1) L Neutrophils (%) (Auto) 69.4 % (45.0-75.0) Lymphocytes (%) (Auto) 16.0 % (20.0-45.0) L Monocytes (%) (Auto) 11.7 % (1.0-10.0) H Eosinophils (%) (Auto) 2.1 % (0.0-3.0) Basophils (%) (Auto) 0.7 % (0.0-2.0) Sodium Level 141 MMOL/L (136-145) Potassium Level 4.6 MMOL/L (3.5-5.1) Chloride Level 111 MMOL/L (98-107) H Carbon Dioxide Level 22 MMOL/L (21-32) Anion Gap 8 mmol/L (5-15) Blood Urea Nitrogen 39 mg/dL (7-18) H Creatinine 1.9 MG/DL (0.55-1.30) H Estimat Glomerular Filtration Rate mL/min (>60) Glucose Level 94 MG/DL (74-106) Uric Acid 5.4 MG/DL (2.6-7.2) Calcium Level 8.1 MG/DL (8.5-10.1) L Phosphorus Level 3.5 MG/DL (2.5-4.9) Magnesium Level 1.8 MG/DL (1.8-2.4) Iron Level 28 ug/dL (50-175) L Total Iron Binding Capacity 156 ug/dL (250-450) L Percent Iron Saturation 18 % (15-50) Unsaturated Iron Binding 128 ug/dL (112-346) Ferritin 137 NG/ML (8-388) Total Bilirubin 0.3 MG/DL (0.2-1.0) Gamma Glutamyl Transpeptidase 13 U/L (5-85) Aspartate Amino Transf (AST/SGOT) 19 U/L (15-37) Alanine Aminotransferase (ALT/SGPT) 11 U/L (12-78) L Alkaline Phosphatase 65 U/L (46-116) C-Reactive Protein, Quantitative 8.2 mg/dL (0.00-0.90) H Pro-B-Type Natriuretic Peptide 2044 pg/mL (0-125) H Total Protein 7.1 G/DL (6.4-8.2) Albumin 2.2 G/DL (3.4-5.0) L Globulin 4.9 g/dL Albumin/Globulin Ratio 0.4 (1.0-2.7) L Triglycerides Level 92 MG/DL (30-150) Cholesterol Level 108 MG/DL (< 200) LDL Cholesterol 64 mg/dL (<100) HDL Cholesterol 29 MG/DL (40-60) L Cholesterol/HDL Ratio 3.7 (3.3-4.4) Vitamin B12 Level 495 PG/ML (193-986) Folate 11.2 NG/ML (8.6-58.9) Thyroid Stimulating Hormone (TSH) 3.279 uiU/mL (0.358-3.740) Free Thyroxine 1.20 NG/DL (0.76-1.46) Free Triiodothyronine 1.0 pg/mL (2.3-4.2) L Height (Feet): 5 Height (Inches): 1.00 Weight (Pounds): 95 Medications Current Medications Medications (Trade) Dose Ordered Sig/Floyd Route PRN Reason Start Time Stop Time Status Last Admin Dose Admin Acetaminophen (Tylenol) 650 mg Q4H PRN ORAL fever 05/12/19 22:00 06/11/19 21:59 05/13/19 17:58 Albuterol/ Ipratropium (Albuterol/ Ipratropium) 3 ml Q4H PRN HHN Shortness of Breath 05/12/19 22:00 05/17/19 21:59 Cefepime HCl 1 gm/ Dextrose 55 ml @ 110 mls/hr Q24H IVPB 05/13/19 11:00 05/20/19 10:59 05/14/19 11:00 Heparin Sodium (Porcine) (Heparin 5000 units/ml) 5,000 units EVERY 12 HOURS SUBQ 05/13/19 09:00 06/12/19 08:59 05/14/19 09:03 Liothyronine Sodium (Cytomel) 5 mcg DAILY ORAL 05/15/19 09:00 10/27/19 08:59 Morphine Sulfate (Morphine Sulfate) 2 mg Q4H PRN IVP Moderate Pain (Pain Scale 4-6) 05/12/19 22:00 05/19/19 21:59 Ondansetron HCl (Zofran) 4 mg Q6H PRN IVP Nausea & Vomiting 05/12/19 22:00 06/11/19 21:59 Polyethylene Glycol (Miralax) 17 gm DAILYPRN PRN ORAL Constipation 05/12/19 22:00 06/11/19 21:59 Sodium Chloride 1,000 ml @ 100 mls/hr Q10H ONCE IV 05/14/19 14:15 05/15/19 00:14 Temazepam (Restoril) 15 mg HSPRN PRN ORAL Insomnia 05/12/19 22:00 05/19/19 21:59 Assessment/Plan Assessment/Plan: Hematology/Oncology Consultation Requesting MD: Isaak Herrera Date of Service:05/14/19 Reason for consultation: Leukopenia and Anemia HPI: Asked by Dr. Herrera to eval. This is a 73-year-old female well known to me from prior admission, who lives at home, complaining of recent headache, and was recently admitte for abdominal pain, n/vt. Seen by id, pulm, renal, on cefepime at this time. Hematology/ Oncology was consulted for Leukopenia and Anemia. Hgb <10 wbc 3.6. Have seen her before and she had similar findings, and send for a flow which was negative , no bone marrow biopsy was done, hep and hiv neg, as was abd us. PAST MEDICAL HISTORY: Includes rheumatoid arthritis and neuropathy. PAST SURGICAL HISTORY: None. MEDICATIONS: Include cefepime, vancomycin, heparin, Zofran, morphine, Tylenol, and albuterol. ALLERGIES: Denies. SOCIAL HISTORY: No smoking. No alcohol. No intravenous drug abuse. FAMILY HISTORY: Noncontributory. PHYSICAL EXAMINATION: GENERAL: Calm in bed, oriented x3, slight short of breath. VITAL SIGNS: reviewed CARDIOVASCULAR: No murmur. LUNGS: Poor air exchange. ABDOMEN: Bowel sounds distant. EXTREMITIES: No cyanosis or edema. NEUROLOGIC: The patient moves all extremities, slightly weak. LABORATORY AND DIAGNOSTIC DATA: white count 3.6, hemoglobin and hematocrit 8.6/29, and platelets 173. ASSESSMENT/Recs # Monoclonal gammopathy noted on both IGG >3000, and immunofixation of the serum , cocerning for multiple myeloma. with LEUKOPENIA, decreased white blood cell count, (leukopenia) - wbc under 4k, could also be related to infection v multiple myeloma --> continue antibiotics with ID service, appreciate recs --> medications have been reviewed --> hepatitis and hiv in past negative --> imaging of abdomen reviewed --> Prior igg was 3961--> 2453 and spep was anbnormal concerning for myeloma --> immunofixation of prior visit ++ for monoclonal proteinwith lambda light chain specificity # Anemia of chronic disease due to underlying chronic medical issues, multifactorial --> Anemia workup has been ordered from [facility], and reviewed, ferritin is >100 --> No evidence of hemolysis is noted, peripheral smear has been reviewed --> Hgb goal >7. Transfuse prn. --> Epogen or iron at this time is not particularly indicated --> Medications have been reviewed --> egd/colo per gi on prn basis # Abdominal pain, hx enteritis, a ntibiotics per Infectious Disease. --> on abx --> O2 and pulmonary treatment. # Headache, chronic # Recent tristan # Dvt ppx heparin sq The timing of this note does not necessarily reflect the time of the patient was seen. Greatly appreciate consultation! Emiliano Mccray MD May 14, 2019 14:34
--- NOTE | 2019-05-14 14:38 | General Progress Note ---
Assessment/Plan Problem List: (1) Anemia ICD Codes: D64.9 - Anemia, unspecified SNOMED: 781224455 (2) Renal failure (ARF), acute on chronic ICD Codes: N17.9 - Acute kidney failure, unspecified; N18.9 - Chronic kidney disease, unspecified SNOMED: 911992573 (3) UTI (urinary tract infection) ICD Codes: N39.0 - Urinary tract infection, site not specified SNOMED: 10122006 (4) Severe protein-calorie malnutrition ICD Codes: E43 - Unspecified severe protein-calorie malnutrition SNOMED: 692842633, 568186677, 768607821 Status: stable, progressing Assessment/Plan: o2 pulm tx abx cbc bmp am gi heme eval Subjective Constitutional: Reports: weakness Allergies: Coded Allergies: No Known Allergies (Unverified , 10/02/15) All Systems: reviewed and negative except above Subjective sl anxious Objective Last 24 Hour Vital Signs Date Time Temp Pulse Resp B/P (MAP) Pulse Ox O2 Delivery O2 Flow Rate FiO2 05/14/19 12:00 97.8 69 20 96/56 (69) 98 05/14/19 09:00 Room Air 05/14/19 08:05 71 18 97 Room Air 21 05/14/19 08:00 98.1 76 20 93/54 (67) 96 05/14/19 04:00 97.3 60 16 120/70 (87) 97 05/14/19 00:00 98.1 68 16 121/69 (86) 98 05/13/19 21:00 Room Air 05/13/19 20:00 99.0 71 16 104/56 (72) 97 05/13/19 18:28 99.1 05/13/19 16:00 99.4 74 20 104/64 (77) 94 Intake and Output 05/13/19 05/14/19 19:00 07:00 Intake Total 255 ml 500 ml Balance 255 ml 500 ml Intake IV Total 255 ml 500 ml # Voids 1 Laboratory Tests 05/14/19 04:48: White Blood Count 4.6L, Red Blood Count 2.69L, Hemoglobin 8.3L, Hematocrit 25.3L , Mean Corpuscular Volume 94, Mean Corpuscular Hemoglobin 30.8, Mean Corpuscular Hemoglobin Concent 32.7, Red Cell Distribution Width 12.5, Platelet Count 267, Mean Platelet Volume 5.2L, Neutrophils (%) (Auto) 69.4, Lymphocytes ( %) (Auto) 16.0L, Monocytes (%) (Auto) 11.7H, Eosinophils (%) (Auto) 2.1, Basophils (%) (Auto) 0.7, Sodium Level 141, Potassium Level 4.6, Chloride Level 111H, Carbon Dioxide Level 22, Anion Gap 8, Blood Urea Nitrogen 39H, Creatinine 1.9H, Estimat Glomerular Filtration Rate , Glucose Level 94, Uric Acid 5.4, Calcium Level 8.1L, Phosphorus Level 3.5, Magnesium Level 1.8, Iron Level 28L, Total Iron Binding Capacity 156L, Percent Iron Saturation 18, Unsaturated Iron Binding 128, Ferritin 137, Total Bilirubin 0.3, Gamma Glutamyl Transpeptidase 13 , Aspartate Amino Transf (AST/SGOT) 19, Alanine Aminotransferase (ALT/SGPT) 11L , Alkaline Phosphatase 65, C-Reactive Protein, Quantitative 8.2H, Pro-B-Type Natriuretic Peptide 2044H, Total Protein 7.1, Albumin 2.2L, Globulin 4.9, Albumin/Globulin Ratio 0.4L, Triglycerides Level 92, Cholesterol Level 108, LDL Cholesterol 64, HDL Cholesterol 29L, Cholesterol/HDL Ratio 3.7, Vitamin B12 Level 495, Folate 11.2, Thyroid Stimulating Hormone (TSH) 3.279, Free Thyroxine 1.20, Free Triiodothyronine 1.0L Height (Feet): 5 Height (Inches): 1.00 Weight (Pounds): 95 General Appearance: lethargic EENT: normal ENT inspection Neck: normal alignment Cardiovascular: normal peripheral pulses, normal rate, regular rhythm Respiratory/Chest: chest wall non-tender, lungs clear, normal breath sounds Abdomen: normal bowel sounds, non tender, soft Extremities: normal inspection Edema: no edema noted Arm (L), no edema noted Arm (R), no edema noted Leg (L), no edema noted Leg (R), no edema noted Pedal (L), no edema noted Pedal (R), no edema noted Generalized Neurologic: responsive, motor weakness Skin: normal pigmentation, warm/dry Isaak Herrera DO May 14, 2019 14:38
[2019-05-14 16:00] VITALS: BP 113/60
--- NOTE | 2019-05-14 19:28 | NUR ---
HAND-OFF: Report given to Edwin CASTRO.
--- NOTE | 2019-05-14 19:29 | NUR ---
NURSE NOTES: Patient is in bed, awake, alert and verbal. Breathing on room air. No acute distress noted. IV site on left arm patent and intact. Fall precaution is in place. Bed in low and locked position. Bed alarm is on. Call light within reach. Encouraged patient to use call for assistance before getting out of bed.Patient will be monitored.
[2019-05-14 20:00] VITALS: BP 121/66
--- NOTE | 2019-05-14 20:15 | NUR ---
NURSE NOTES: Patient is in bed, awake, alert and verbal. Israeli speaking.Pt's son by bedside. No acute distress noted. IV site on left arm patent and intact. Fall precaution is in place. Bed in low and locked position. Bed alarm is on. Call light within reach. Encouraged patient to use call for assistance before getting out of bed.Patient will be monitored. Trainee, Suresh Fuller,RN will be assisting in the care of this patient.
[2019-05-15] VITALS: BP 131/70
--- NOTE | 2019-05-15 01:30 | NUR ---
NURSE NOTES: NURSE NOTES: Patient is in bed, asleep. No c/o pain or discomfort at this time. Assisted her to the bathroom as needed. Bed in low and locked position. Call light within reach.call light within reach. Will continue to monitor.
--- NOTE | 2019-05-15 02:00 | Consultation ---
DATE OF CONSULTATION: 05/14/2019 GASTROENTEROLOGY CONSULTATION CONSULTING PHYSICIAN: Kleber Skaggs M.D. CHIEF COMPLAINT: Anemia. HISTORY OF PRESENT ILLNESS: This is a very pleasant 73-year-old female known to us from last admission. She was admitted last time with anemia. The patient has a history of rheumatoid arthritis and multiple other medical problems. In the last admission, we offered the family to have an endoscopy and colonoscopy. At that time, family refused. Now, she is admitted again with possible UTI. PAST MEDICAL HISTORY: 1. Osteoporosis. 2. Rheumatoid arthritis. 3. Pulmonary MAC. 4. Multidrug-resistant pneumonia. 5. Anemia. 6. Possible multiple myeloma. MEDICATIONS: Please see medication reconciliation list. ALLERGIES: No known drug allergies. FAMILY HISTORY: Noncontributory. REVIEW OF SYSTEMS: A 10-point review of systems was performed and pertinent positives as dictated in the HPI. PHYSICAL EXAMINATION: VITAL SIGNS: Temperature is 97.8, pulse 69, respirations 20, and blood pressure is 96/56. HEENT: Normocephalic and atraumatic. Sclerae are anicteric. NECK: Supple. No evidence of obvious lymphadenopathy. CARDIOVASCULAR: Regular rate and rhythm. Plus S1 and S2. No obvious murmur. LUNGS: Decreased breath sounds bilaterally based on the supine exam. ABDOMEN: Soft and nontender. No rebound. No guarding. No peritoneal sign. EXTREMITIES: No cyanosis. No clubbing. No edema. LABORATORY DATA: White count of 4.6, hemoglobin 8.3, hematocrit 25, and platelet count is 267,000. BUN is 39 and creatinine is 1.9. Iron saturation is 18. Urine cultures came back Gram-negative rods. ASSESSMENT AND PLAN: This is a 73-year-old female with acute UTI and possible multiple myeloma, obvious source for her anemia. On last admission, the patient had multiple stool OB's, which were negative. Hemoglobin still continues to be stable and there is no evidence of any active GI bleeding. We are going to hold off on doing an inpatient endoscopy and colonoscopy. The patient to follow as an outpatient. Also, the patient to follow with Hematology for treatment and management of possible multiple myeloma. Currently, the patient is getting antibiotics per ID for UTI and we will follow. I want to thank Dr. Isaak Herrera for this kind referral. Kleber Johnny Skaggs DR: MIKE JOB#: [id number] CC: Isaak Herrera D.O.
[2019-05-15 04:00] VITALS: BP 133/77
[2019-05-15 07:18] LABS: ANION GAP 13 mmol/L (5-15); BLOOD UREA NITROGEN 33 mg/dL (7-18); CALCIUM 8.5 MG/DL (8.5-10.1); CARBON DIOXIDE 18 MMOL/L (21-32); CHLORIDE 108 MMOL/L (98-107); CREATININE 1.9 MG/DL (0.55-1.30); POTASSIUM 4.4 MMOL/L (3.5-5.1); SODIUM 138 MMOL/L (136-145)
--- NOTE | 2019-05-15 07:22 | NUR ---
HAND-OFF: Report given to .GLORIA Arroyo.
[2019-05-15 07:28] LABS: BASOPHILS % (AUTO) 0.9 % (0.0-2.0); EOSINOPHILS % (AUTO) 1.9 % (0.0-3.0); HEMATOCRIT 27.1 % (37.0-47.0); HEMOGLOBIN 8.7 G/DL (12.0-16.0); LYMPHOCYTES % (AUTO) 22.1 % (20.0-45.0); MEAN CORPUSCULAR VOLUME 95 FL (80-99); MONOCYTES % (AUTO) 12.4 % (1.0-10.0); NEUTROPHILS % (AUTO) 62.7 % (45.0-75.0); PLATELET COUNT 257 K/UL (150-450); RED BLOOD COUNT 2.86 M/UL (4.20-5.40); RED CELL DISTRIBUTION WIDTH 11.9 % (11.6-14.8); WHITE BLOOD COUNT 4.3 K/UL (4.8-10.8)
--- NOTE | 2019-05-15 07:40 | NUR ---
NURSE NOTES: Received patient on bed, awake. IV site intact and patent. Bed in low and locked position, call light in reach. No signs of respiratory distress, patient denies pain. Room board updated, will continue to monitor.
[2019-05-15 08:00] VITALS: BP 110/68
--- NOTE | 2019-05-15 08:38 | General Progress Note ---
Assessment/Plan Problem List: (1) Anemia ICD Codes: D64.9 - Anemia, unspecified SNOMED: 581437544 (2) Renal failure (ARF), acute on chronic ICD Codes: N17.9 - Acute kidney failure, unspecified; N18.9 - Chronic kidney disease, unspecified SNOMED: 670945066 (3) UTI (urinary tract infection) ICD Codes: N39.0 - Urinary tract infection, site not specified SNOMED: 70298998 (4) Severe protein-calorie malnutrition ICD Codes: E43 - Unspecified severe protein-calorie malnutrition SNOMED: 318444336, 276610787, 565798302 Status: stable, progressing Assessment/Plan: o2 pulm tx abx cbc bmp am gi heme eval Subjective Constitutional: Reports: weakness Allergies: Coded Allergies: No Known Allergies (Unverified , 10/02/15) All Systems: reviewed and negative except above Subjective sl anxious Objective Last 24 Hour Vital Signs Date Time Temp Pulse Resp B/P (MAP) Pulse Ox O2 Delivery O2 Flow Rate FiO2 05/15/19 08:00 98.7 80 16 110/68 (82) 96 05/15/19 04:00 99.0 70 18 133/77 (95) 96 05/15/19 00:00 98.9 69 20 131/70 (90) 94 05/14/19 21:00 Room Air 05/14/19 20:35 76 18 98 Room Air 21 05/14/19 20:00 99.8 71 20 121/66 (84) 96 05/14/19 16:00 98.9 76 18 113/60 (77) 97 05/14/19 12:00 97.8 69 20 96/56 (69) 98 05/14/19 09:00 Room Air Intake and Output 05/14/19 05/15/19 18:59 06:59 Intake Total 1305 ml 760 ml Balance 1305 ml 760 ml Intake Oral 750 ml 560 ml IV Total 555 ml 200 ml # Voids 4 2 Laboratory Tests 05/15/19 05:40: White Blood Count 4.3L, Red Blood Count 2.86L, Hemoglobin 8.7L, Hematocrit 27.1L , Mean Corpuscular Volume 95, Mean Corpuscular Hemoglobin 30.3, Mean Corpuscular Hemoglobin Concent 32.0, Red Cell Distribution Width 11.9, Platelet Count 257, Mean Platelet Volume 5.6L, Neutrophils (%) (Auto) 62.7, Lymphocytes ( %) (Auto) 22.1, Monocytes (%) (Auto) 12.4H, Eosinophils (%) (Auto) 1.9, Basophils (%) (Auto) 0.9, Sodium Level 138, Potassium Level 4.4, Chloride Level 108H, Carbon Dioxide Level 18L, Anion Gap 13, Blood Urea Nitrogen 33H, Creatinine 1.9H, Estimat Glomerular Filtration Rate , Glucose Level 86, Calcium Level 8.5 Height (Feet): 5 Height (Inches): 1.00 Weight (Pounds): 95 General Appearance: lethargic EENT: normal ENT inspection Neck: normal alignment Cardiovascular: normal peripheral pulses, normal rate, regular rhythm Respiratory/Chest: chest wall non-tender, lungs clear, normal breath sounds Abdomen: normal bowel sounds, non tender, soft Extremities: normal inspection Edema: no edema noted Arm (L), no edema noted Arm (R), no edema noted Leg (L), no edema noted Leg (R), no edema noted Pedal (L), no edema noted Pedal (R), no edema noted Generalized Neurologic: responsive, motor weakness Skin: normal pigmentation, warm/dry Isaak Herrera DO May 15, 2019 08:38
--- NOTE | 2019-05-15 08:39 | Hematology/Onc Progress Note ---
Assessment/Plan Assessment/Plan ASSESSMENT/Recs # Monoclonal gammopathy noted on both IGG >3000, and immunofixation of the serum , cocerning for multiple myeloma. with LEUKOPENIA, decreased white blood cell count, (leukopenia) - wbc under 4k, could also be related to infection v multiple myeloma --> continue antibiotics with ID service, appreciate recs --> medications have been reviewed --> hepatitis and hiv in past negative --> imaging of abdomen reviewed --> Prior igg was 3961--> 2453 and spep was anbnormal concerning for myeloma --> immunofixation of prior visit ++ for monoclonal proteinwith lambda light chain specificity --> may at some point consider bone marrow biopsy (WILL NOT SEND CYTOGENETICS) just simple biopsy # Anemia of chronic disease due to underlying chronic medical issues, multifactorial --> Anemia workup has been ordered from pior adm, and reviewed, ferritin is >100 --> No evidence of hemolysis is noted, peripheral smear has been reviewed --> Hgb goal >7. Transfuse prn. --> Epogen or iron at this time is not particularly indicated --> Medications have been reviewed --> egd/colo per gi on prn basis # Abdominal pain, hx enteritis, a ntibiotics per Infectious Disease. --> on abx --> O2 and pulmonary treatment. # Headache, chronic # Recent tristan # Dvt ppx heparin sq The timing of this note does not necessarily reflect the time of the patient was seen. Greatly appreciate consultation! Subjective HEENT: Denies: no symptoms, eye pain, blurred vision, tearing, double vision, ear pain, ear discharge, nose pain, nose congestion, throat pain, throat swelling, mouth pain, mouth swelling, other Respiratory: Denies: no symptoms, cough, shortness of breath, SOB with excertion, SOB at rest, sputum, wheezing, other Genitourinary: Denies: no symptoms, burning, discharge, frequency, flank pain, hematuria, incontinence, pain, urgency, other Neurologic/Psychiatric: Denies: no symptoms, anxiety, depressed, emotional problems, headache, numbness, paresthesia, pre-existing deficit, seizure, tingling, tremors, weakness, other Allergies: Coded Allergies: No Known Allergies (Unverified , 10/02/15) Subjective 05/15: no bleeding, no chills, seen with pcp, labs reviewed, seen by gi Objective Objective Current Medications Medications (Trade) Dose Ordered Sig/Floyd Route PRN Reason Start Time Stop Time Status Last Admin Dose Admin Acetaminophen (Tylenol) 650 mg Q4H PRN ORAL fever 05/12/19 22:00 06/11/19 21:59 05/13/19 17:58 Albuterol/ Ipratropium (Albuterol/ Ipratropium) 3 ml Q4H PRN HHN Shortness of Breath 05/12/19 22:00 05/17/19 21:59 Cefepime HCl 1 gm/ Dextrose 55 ml @ 110 mls/hr Q24H IVPB 05/13/19 11:00 05/20/19 10:59 05/14/19 11:00 Heparin Sodium (Porcine) (Heparin 5000 units/ml) 5,000 units EVERY 12 HOURS SUBQ 05/13/19 09:00 06/12/19 08:59 05/14/19 20:51 Liothyronine Sodium (Cytomel) 5 mcg DAILY ORAL 05/15/19 09:00 06/14/19 08:59 Morphine Sulfate (Morphine Sulfate) 2 mg Q4H PRN IVP Moderate Pain (Pain Scale 4-6) 05/12/19 22:00 05/19/19 21:59 Ondansetron HCl (Zofran) 4 mg Q6H PRN IVP Nausea & Vomiting 05/12/19 22:00 06/11/19 21:59 Polyethylene Glycol (Miralax) 17 gm DAILYPRN PRN ORAL Constipation 05/12/19 22:00 06/11/19 21:59 Temazepam (Restoril) 15 mg HSPRN PRN ORAL Insomnia 05/12/19 22:00 05/19/19 21:59 Last 24 Hour Vital Signs Date Time Temp Pulse Resp B/P (MAP) Pulse Ox O2 Delivery O2 Flow Rate FiO2 05/15/19 08:00 98.7 80 16 110/68 (82) 96 05/15/19 04:00 99.0 70 18 133/77 (95) 96 05/15/19 00:00 98.9 69 20 131/70 (90) 94 05/14/19 21:00 Room Air 05/14/19 20:35 76 18 98 Room Air 21 05/14/19 20:00 99.8 71 20 121/66 (84) 96 05/14/19 16:00 98.9 76 18 113/60 (77) 97 05/14/19 12:00 97.8 69 20 96/56 (69) 98 05/14/19 09:00 Room Air 05/14/19 08:05 71 18 97 Room Air 21 05/14/19 08:00 98.1 76 20 93/54 (67) 96 05/14/19 04:00 97.3 60 16 120/70 (87) 97 05/14/19 00:00 98.1 68 16 121/69 (86) 98 05/13/19 21:00 Room Air 05/13/19 20:00 99.0 71 16 104/56 (72) 97 05/13/19 18:28 99.1 05/13/19 16:00 99.4 74 20 104/64 (77) 94 05/13/19 12:00 99.1 81 20 114/57 (76) 96 05/13/19 12:00 98.2 64 20 192/85 (120) 96 05/13/19 09:00 Room Air Intake and Output 05/14/19 05/15/19 18:59 06:59 Intake Total 1305 ml 760 ml Balance 1305 ml 760 ml Intake Oral 750 ml 560 ml IV Total 555 ml 200 ml # Voids 4 2 Labs Test 05/12/19 18:38 05/12/19 19:00 05/13/19 05:35 05/14/19 04:48 Urine Color Pale yellow Urine Appearance Clear Urine pH 6 (4.5-8.0) Urine Specific [place] 1.005 (1.005-1.035) Urine Protein 2+ (NEGATIVE) Urine Glucose (UA) Negative (NEGATIVE) Urine Ketones Negative (NEGATIVE) Urine Blood 5+ (NEGATIVE) Urine Nitrite Negative (NEGATIVE) Urine Bilirubin Negative (NEGATIVE) Urine Urobilinogen Normal MG/DL (0.0-1.0) Urine Leukocyte Esterase 2+ (NEGATIVE) Urine RBC 30-40 /HPF (0 - 2) Urine WBC 30-40 /HPF (0 - 2) Urine Squamous Epithelial Cells None /LPF (NONE/OCC) Urine Bacteria Occasional /HPF (NONE) White Blood Count 7.8 K/UL (4.8-10.8) 7.5 K/UL (4.8-10.8) 4.6 K/UL (4.8-10.8) Red Blood Count 3.06 M/UL (4.20-5.40) 2.53 M/UL (4.20-5.40) 2.69 M/UL (4.20-5.40) Hemoglobin 9.5 G/DL (12.0-16.0) 7.8 G/DL (12.0-16.0) 8.3 G/DL (12.0-16.0) Hematocrit 28.5 % (37.0-47.0) 23.7 % (37.0-47.0) 25.3 % (37.0-47.0) Mean Corpuscular Volume 93 FL (80-99) 94 FL (80-99) 94 FL (80-99) Mean Corpuscular Hemoglobin 31.0 PG (27.0-31.0) 30.7 PG (27.0-31.0) 30.8 PG (27.0-31.0) Mean Corpuscular Hemoglobin Concent 33.2 G/DL (32.0-36.0) 32.7 G/DL (32.0-36.0) 32.7 G/DL (32.0-36.0) Red Cell Distribution Width 11.7 % (11.6-14.8) 12.5 % (11.6-14.8) 12.5 % (11.6-14.8) Platelet Count 303 K/UL (150-450) 333 K/UL (150-450) 267 K/UL (150-450) Mean Platelet Volume 5.8 FL (6.5-10.1) 5.1 FL (6.5-10.1) 5.2 FL (6.5-10.1) Neutrophils (%) (Auto) 76.6 % (45.0-75.0) % (45.0-75.0) 69.4 % (45.0-75.0) Lymphocytes (%) (Auto) 13.9 % (20.0-45.0) % (20.0-45.0) 16.0 % (20.0-45.0) Monocytes (%) (Auto) 8.5 % (1.0-10.0) % (1.0-10.0) 11.7 % (1.0-10.0) Eosinophils (%) (Auto) 0.3 % (0.0-3.0) % (0.0-3.0) 2.1 % (0.0-3.0) Basophils (%) (Auto) 0.7 % (0.0-2.0) % (0.0-2.0) 0.7 % (0.0-2.0) Sodium Level 135 MMOL/L (136-145) 139 MMOL/L (136-145) 141 MMOL/L (136-145) Potassium Level 5.4 MMOL/L (3.5-5.1) 4.6 MMOL/L (3.5-5.1) 4.6 MMOL/L (3.5-5.1) Chloride Level 103 MMOL/L (98-107) 109 MMOL/L (98-107) 111 MMOL/L (98-107) Carbon Dioxide Level 23 MMOL/L (21-32) 21 MMOL/L (21-32) 22 MMOL/L (21-32) Anion Gap 9 mmol/L (5-15) 9 mmol/L (5-15) 8 mmol/L (5-15) Blood Urea Nitrogen 52 mg/dL (7-18) 41 mg/dL (7-18) 39 mg/dL (7-18) Creatinine 2.1 MG/DL (0.55-1.30) 1.9 MG/DL (0.55-1.30) 1.9 MG/DL (0.55-1.30) Estimat Glomerular Filtration Rate mL/min (>60) mL/min (>60) mL/min (>60) Glucose Level 102 MG/DL (74-106) 92 MG/DL (74-106) 94 MG/DL (74-106) Calcium Level 9.1 MG/DL (8.5-10.1) 8.5 MG/DL (8.5-10.1) 8.1 MG/DL (8.5-10.1) Total Bilirubin 0.4 MG/DL (0.2-1.0) 0.5 MG/DL (0.2-1.0) 0.3 MG/DL (0.2-1.0) Aspartate Amino Transf (AST/SGOT) 20 U/L (15-37) 20 U/L (15-37) 19 U/L (15-37) Alanine Aminotransferase (ALT/SGPT) 8 U/L (12-78) 10 U/L (12-78) 11 U/L (12-78) Alkaline Phosphatase 78 U/L (46-116) 70 U/L (46-116) 65 U/L (46-116) Total Protein 8.6 G/DL (6.4-8.2) 7.8 G/DL (6.4-8.2) 7.1 G/DL (6.4-8.2) Albumin 3.0 G/DL (3.4-5.0) 2.5 G/DL (3.4-5.0) 2.2 G/DL (3.4-5.0) Globulin 5.6 g/dL 5.3 g/dL 4.9 g/dL Albumin/Globulin Ratio 0.5 (1.0-2.7) 0.5 (1.0-2.7) 0.4 (1.0-2.7) Differential Total Cells Counted 100 Neutrophils % (Manual) 83 % (45-75) Lymphocytes % (Manual) 12 % (20-45) Monocytes % (Manual) 4 % (1-10) Eosinophils % (Manual) 1 % (0-3) Basophils % (Manual) 0 % (0-2) Band Neutrophils 0 % (0-8) Platelet Estimate Adequate Platelet Morphology Normal Uric Acid 5.4 MG/DL (2.6-7.2) Phosphorus Level 3.5 MG/DL (2.5-4.9) Magnesium Level 1.8 MG/DL (1.8-2.4) Iron Level 28 ug/dL (50-175) Total Iron Binding Capacity 156 ug/dL (250-450) Percent Iron Saturation 18 % (15-50) Unsaturated Iron Binding 128 ug/dL (112-346) Ferritin 137 NG/ML (8-388) Gamma Glutamyl Transpeptidase 13 U/L (5-85) C-Reactive Protein, Quantitative 8.2 mg/dL (0.00-0.90) Pro-B-Type Natriuretic Peptide 2044 pg/mL (0-125) Triglycerides Level 92 MG/DL (30-150) Cholesterol Level 108 MG/DL (< 200) LDL Cholesterol 64 mg/dL (<100) HDL Cholesterol 29 MG/DL (40-60) Cholesterol/HDL Ratio 3.7 (3.3-4.4) Vitamin B12 Level 495 PG/ML (193-986) Folate 11.2 NG/ML (8.6-58.9) Thyroid Stimulating Hormone (TSH) 3.279 uiU/mL (0.358-3.740) Free Thyroxine 1.20 NG/DL (0.76-1.46) Free Triiodothyronine 1.0 pg/mL (2.3-4.2) Test 05/15/19 05:40 White Blood Count 4.3 K/UL (4.8-10.8) Red Blood Count 2.86 M/UL (4.20-5.40) Hemoglobin 8.7 G/DL (12.0-16.0) Hematocrit 27.1 % (37.0-47.0) Mean Corpuscular Volume 95 FL (80-99) Mean Corpuscular Hemoglobin 30.3 PG (27.0-31.0) Mean Corpuscular Hemoglobin Concent 32.0 G/DL (32.0-36.0) Red Cell Distribution Width 11.9 % (11.6-14.8) Platelet Count 257 K/UL (150-450) Mean Platelet Volume 5.6 FL (6.5-10.1) Neutrophils (%) (Auto) 62.7 % (45.0-75.0) Lymphocytes (%) (Auto) 22.1 % (20.0-45.0) Monocytes (%) (Auto) 12.4 % (1.0-10.0) Eosinophils (%) (Auto) 1.9 % (0.0-3.0) Basophils (%) (Auto) 0.9 % (0.0-2.0) Sodium Level 138 MMOL/L (136-145) Potassium Level 4.4 MMOL/L (3.5-5.1) Chloride Level 108 MMOL/L (98-107) Carbon Dioxide Level 18 MMOL/L (21-32) Anion Gap 13 mmol/L (5-15) Blood Urea Nitrogen 33 mg/dL (7-18) Creatinine 1.9 MG/DL (0.55-1.30) Estimat Glomerular Filtration Rate mL/min (>60) Glucose Level 86 MG/DL (74-106) Calcium Level 8.5 MG/DL (8.5-10.1) Height (Feet): 5 Height (Inches): 1.00 Weight (Pounds): 95 Objective PHYSICAL EXAMINATION: GENERAL: Calm in bed, oriented x3, slight short of breath. VITAL SIGNS: reviewed CARDIOVASCULAR: No murmur. LUNGS: Poor air exchange. ABDOMEN: Bowel sounds distant. EXTREMITIES: No cyanosis or edema. NEUROLOGIC: The patient moves all extremities, slightly weak. Emiliano Mccray MD May 15, 2019 08:39
[2019-05-15] MEDS: Liothyronine 5mcg tab ORAL SCH (08:57)
[2019-05-15] MEDS: Heparin 5000 units/ml inj SUBQ SCH ×2 (08:58→20:42)
--- NOTE | 2019-05-15 09:57 | NUR ---
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 Message left for MD High and charge nurse Jaci notified. Awaiting any new orders. Contact precaution sign posted. Addendum: 05/15/19 at 1040 by JACINTO ASHFORD RN RN MD High called back, no new orders. Charge nurse aware.
--- NOTE | 2019-05-15 10:48 | GI Progress Note ---
Assessment/Plan Problems: (1) Severe protein-calorie malnutrition ICD Codes: E43 - Unspecified severe protein-calorie malnutrition SNOMED: 164842162, 223016360, 709905479 (2) Pneumonia ICD Codes: J18.9 - Pneumonia, unspecified organism SNOMED: 322472104 (3) Anemia ICD Codes: D64.9 - Anemia, unspecified SNOMED: 529101298 Status: unchanged Status Narrative Discussed with Dr. Skaggs. Assessment/Plan This is a 73-year-old female with acute UTI and possible multiple myeloma, obvious source for her anemia. outpatient GI procedures advance diet as tolerated OB stool r/o GI bleed prn transfusions ppi abx follow labs The patient was seen and examined at bedside and all new and available data was reviewed in the patients chart. I agree with the above findings, impression and plan. (Patient seen earlier today. Signature stamp does not reflect patient encounter time.). - Kleber Skaggs MD Subjective Gastrointestinal/Abdominal: Reports: no symptoms Objective Last 24 Hour Vital Signs Date Time Temp Pulse Resp B/P (MAP) Pulse Ox O2 Delivery O2 Flow Rate FiO2 05/15/19 09:57 77 20 97 Room Air 21 05/15/19 09:00 Room Air 05/15/19 08:00 98.7 80 16 110/68 (82) 96 05/15/19 04:00 99.0 70 18 133/77 (95) 96 05/15/19 00:00 98.9 69 20 131/70 (90) 94 05/14/19 21:00 Room Air 05/14/19 20:35 76 18 98 Room Air 21 05/14/19 20:00 99.8 71 20 121/66 (84) 96 05/14/19 16:00 98.9 76 18 113/60 (77) 97 05/14/19 12:00 97.8 69 20 96/56 (69) 98 Intake and Output 05/14/19 05/15/19 18:59 06:59 Intake Total 1305 ml 760 ml Balance 1305 ml 760 ml Intake Oral 750 ml 560 ml IV Total 555 ml 200 ml # Voids 4 2 Laboratory Tests Test 05/15/19 05:40 White Blood Count 4.3 K/UL (4.8-10.8) L Red Blood Count 2.86 M/UL (4.20-5.40) L Hemoglobin 8.7 G/DL (12.0-16.0) L Hematocrit 27.1 % (37.0-47.0) L Mean Corpuscular Volume 95 FL (80-99) Mean Corpuscular Hemoglobin 30.3 PG (27.0-31.0) Mean Corpuscular Hemoglobin Concent 32.0 G/DL (32.0-36.0) Red Cell Distribution Width 11.9 % (11.6-14.8) Platelet Count 257 K/UL (150-450) Mean Platelet Volume 5.6 FL (6.5-10.1) L Neutrophils (%) (Auto) 62.7 % (45.0-75.0) Lymphocytes (%) (Auto) 22.1 % (20.0-45.0) Monocytes (%) (Auto) 12.4 % (1.0-10.0) H Eosinophils (%) (Auto) 1.9 % (0.0-3.0) Basophils (%) (Auto) 0.9 % (0.0-2.0) Sodium Level 138 MMOL/L (136-145) Potassium Level 4.4 MMOL/L (3.5-5.1) Chloride Level 108 MMOL/L (98-107) H Carbon Dioxide Level 18 MMOL/L (21-32) L Anion Gap 13 mmol/L (5-15) Blood Urea Nitrogen 33 mg/dL (7-18) H Creatinine 1.9 MG/DL (0.55-1.30) H Estimat Glomerular Filtration Rate mL/min (>60) Glucose Level 86 MG/DL (74-106) Calcium Level 8.5 MG/DL (8.5-10.1) Height (Feet): 5 Height (Inches): 1.00 Weight (Pounds): 95 General Appearance: WD/WN, no apparent distress, alert, thin Cardiovascular: normal rate Respiratory/Chest: normal breath sounds, no respiratory distress Abdominal Exam: normal bowel sounds, non tender, soft Extremities: normal range of motion, non-tender Eunice Jolley NP May 15, 2019 10:48
[2019-05-15] MEDS: Cefepime 1gm in D5W 55ml IVPB SCH (11:01)
[2019-05-15 12:00] VITALS: BP 109/69
--- NOTE | 2019-05-15 12:14 | Nephrology Progress Note ---
Assessment/Plan Problem List: (1) ROLANDO (acute kidney injury) (2) Renal failure (ARF), acute on chronic (3) Anemia (4) Severe protein-calorie malnutrition Assessment (1) ROLANDO (acute kidney injury) (2) Renal failure (ARF), acute on chronic (3) Severe anemia (4) Protein calorie mal nutrition (5) UTI Others: h/o bronchitis h/o abdominal pain and nausea, possibly enteritis ( by CT scan) RA Plan Plan Avoid nephrotoxics hydrate- NS monitor renal parameters check ferritin and Iron panel Subjective ROS Limited/Unobtainable: No Constitutional: Reports: malaise Objective Objective Last 24 Hour Vital Signs Date Time Temp Pulse Resp B/P (MAP) Pulse Ox O2 Delivery O2 Flow Rate FiO2 05/15/19 09:57 77 20 97 Room Air 21 05/15/19 09:00 Room Air 05/15/19 08:00 98.7 80 16 110/68 (82) 96 05/15/19 04:00 99.0 70 18 133/77 (95) 96 05/15/19 00:00 98.9 69 20 131/70 (90) 94 05/14/19 21:00 Room Air 05/14/19 20:35 76 18 98 Room Air 21 05/14/19 20:00 99.8 71 20 121/66 (84) 96 05/14/19 16:00 98.9 76 18 113/60 (77) 97 Intake and Output 05/14/19 05/15/19 18:59 06:59 Intake Total 1305 ml 760 ml Balance 1305 ml 760 ml Intake Oral 750 ml 560 ml IV Total 555 ml 200 ml # Voids 4 2 Laboratory Tests 05/15/19 05:40: White Blood Count 4.3L, Red Blood Count 2.86L, Hemoglobin 8.7L, Hematocrit 27.1L , Mean Corpuscular Volume 95, Mean Corpuscular Hemoglobin 30.3, Mean Corpuscular Hemoglobin Concent 32.0, Red Cell Distribution Width 11.9, Platelet Count 257, Mean Platelet Volume 5.6L, Neutrophils (%) (Auto) 62.7, Lymphocytes ( %) (Auto) 22.1, Monocytes (%) (Auto) 12.4H, Eosinophils (%) (Auto) 1.9, Basophils (%) (Auto) 0.9, Sodium Level 138, Potassium Level 4.4, Chloride Level 108H, Carbon Dioxide Level 18L, Anion Gap 13, Blood Urea Nitrogen 33H, Creatinine 1.9H, Estimat Glomerular Filtration Rate , Glucose Level 86, Calcium Level 8.5 Height (Feet): 5 Height (Inches): 1.00 Weight (Pounds): 95 General Appearance: no apparent distress Cardiovascular: normal rate Respiratory/Chest: lungs clear Abdomen: soft Objective no change Isma Unger MD May 15, 2019 12:14
--- NOTE | 2019-05-15 12:16 | Pulmonology Progress Note ---
Assessment/Plan Problems: (1) UTI (urinary tract infection) (2) Severe anemia (3) Renal failure (ARF), acute on chronic (4) Severe protein-calorie malnutrition (5) Emphysema lung Assessment/Plan respiratory treatment pierson culture iv abx check electrolytes iv fluids renal studies symptomatic treatment Subjective ROS Limited/Unobtainable: No Interval Events: late note for 05/14 Allergies: Coded Allergies: No Known Allergies (Unverified , 10/02/15) Objective Last 24 Hour Vital Signs Date Time Temp Pulse Resp B/P (MAP) Pulse Ox O2 Delivery O2 Flow Rate FiO2 05/15/19 09:57 77 20 97 Room Air 21 05/15/19 09:00 Room Air 05/15/19 08:00 98.7 80 16 110/68 (82) 96 05/15/19 04:00 99.0 70 18 133/77 (95) 96 05/15/19 00:00 98.9 69 20 131/70 (90) 94 05/14/19 21:00 Room Air 05/14/19 20:35 76 18 98 Room Air 21 05/14/19 20:00 99.8 71 20 121/66 (84) 96 05/14/19 16:00 98.9 76 18 113/60 (77) 97 Intake and Output 05/14/19 05/15/19 18:59 06:59 Intake Total 1305 ml 760 ml Balance 1305 ml 760 ml Intake Oral 750 ml 560 ml IV Total 555 ml 200 ml # Voids 4 2 General Appearance: WD/WN HEENT: normocephalic, atraumatic Respiratory/Chest: chest wall non-tender, lungs clear Breasts: no masses Cardiovascular: normal peripheral pulses, no JVD Abdomen: no organomegaly Genitourinary: normal external genitalia Extremities: no clubbing Skin: no rash Neurologic/Psychiatric: 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 Complete 05/12/19 18:38 Urine,Clean Catch Urine Culture - Final Gram Negative Poncho Complete 05/12/19 19:30 Rectum - Final NO CARBAPENEM-RESISTANT ENTEROBACTERI... Complete 05/12/19 19:30 Rectum VRE Culture - Final Enterococcus Faecium - Vre Complete Laboratory Tests 05/15/19 05:40: White Blood Count 4.3L, Red Blood Count 2.86L, Hemoglobin 8.7L, Hematocrit 27.1L , Mean Corpuscular Volume 95, Mean Corpuscular Hemoglobin 30.3, Mean Corpuscular Hemoglobin Concent 32.0, Red Cell Distribution Width 11.9, Platelet Count 257, Mean Platelet Volume 5.6L, Neutrophils (%) (Auto) 62.7, Lymphocytes ( %) (Auto) 22.1, Monocytes (%) (Auto) 12.4H, Eosinophils (%) (Auto) 1.9, Basophils (%) (Auto) 0.9, Sodium Level 138, Potassium Level 4.4, Chloride Level 108H, Carbon Dioxide Level 18L, Anion Gap 13, Blood Urea Nitrogen 33H, Creatinine 1.9H, Estimat Glomerular Filtration Rate , Glucose Level 86, Calcium Level 8.5 Current Medications Medications (Trade) Dose Ordered Sig/Floyd Route PRN Reason Start Time Stop Time Status Last Admin Dose Admin Acetaminophen (Tylenol) 650 mg Q4H PRN ORAL fever 05/12/19 22:00 06/11/19 21:59 05/13/19 17:58 Albuterol/ Ipratropium (Albuterol/ Ipratropium) 3 ml Q4H PRN HHN Shortness of Breath 05/12/19 22:00 05/17/19 21:59 Cefepime HCl 1 gm/ Dextrose 55 ml @ 110 mls/hr Q24H IVPB 05/13/19 11:00 05/20/19 10:59 05/15/19 11:01 Heparin Sodium (Porcine) (Heparin 5000 units/ml) 5,000 units EVERY 12 HOURS SUBQ 05/13/19 09:00 06/12/19 08:59 05/15/19 08:58 Liothyronine Sodium (Cytomel) 5 mcg DAILY ORAL 05/15/19 09:00 06/14/19 08:59 05/15/19 08:57 Morphine Sulfate (Morphine Sulfate) 2 mg Q4H PRN IVP Moderate Pain (Pain Scale 4-6) 05/12/19 22:00 05/19/19 21:59 Ondansetron HCl (Zofran) 4 mg Q6H PRN IVP Nausea & Vomiting 05/12/19 22:00 06/11/19 21:59 Polyethylene Glycol (Miralax) 17 gm DAILYPRN PRN ORAL Constipation 05/12/19 22:00 06/11/19 21:59 Temazepam (Restoril) 15 mg HSPRN PRN ORAL Insomnia 05/12/19 22:00 05/19/19 21:59 Stephan Perez MD May 15, 2019 12:16
--- NOTE | 2019-05-15 12:17 | Pulmonology Progress Note ---
Assessment/Plan Problems: (1) UTI (urinary tract infection) (2) Severe anemia (3) Renal failure (ARF), acute on chronic (4) Severe protein-calorie malnutrition (5) Emphysema lung Assessment/Plan all noted VRE rectum positive GNR in urine respiratory treatment pierson culture iv abx check electrolytes iv fluids renal studies symptomatic treatment Subjective ROS Limited/Unobtainable: No Interval Events: doing better Allergies: Coded Allergies: No Known Allergies (Unverified , 10/02/15) Objective Last 24 Hour Vital Signs Date Time Temp Pulse Resp B/P (MAP) Pulse Ox O2 Delivery O2 Flow Rate FiO2 05/15/19 09:57 77 20 97 Room Air 21 05/15/19 09:00 Room Air 05/15/19 08:00 98.7 80 16 110/68 (82) 96 05/15/19 04:00 99.0 70 18 133/77 (95) 96 05/15/19 00:00 98.9 69 20 131/70 (90) 94 05/14/19 21:00 Room Air 05/14/19 20:35 76 18 98 Room Air 21 05/14/19 20:00 99.8 71 20 121/66 (84) 96 05/14/19 16:00 98.9 76 18 113/60 (77) 97 Intake and Output 05/14/19 05/15/19 18:59 06:59 Intake Total 1305 ml 760 ml Balance 1305 ml 760 ml Intake Oral 750 ml 560 ml IV Total 555 ml 200 ml # Voids 4 2 General Appearance: WD/WN HEENT: normocephalic, atraumatic Respiratory/Chest: chest wall non-tender, lungs clear, normal breath sounds Breasts: no masses Cardiovascular: normal peripheral pulses, regular rhythm Abdomen: normal bowel sounds, soft, non tender, no organomegaly Genitourinary: normal external genitalia Extremities: no cyanosis Skin: no rash Neurologic/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 Complete 05/12/19 18:38 Urine,Clean Catch Urine Culture - Final Gram Negative Poncho Complete 05/12/19 19:30 Rectum - Final NO CARBAPENEM-RESISTANT ENTEROBACTERI... Complete 05/12/19 19:30 Rectum VRE Culture - Final Enterococcus Faecium - Vre Complete Laboratory Tests 05/15/19 05:40: White Blood Count 4.3L, Red Blood Count 2.86L, Hemoglobin 8.7L, Hematocrit 27.1L , Mean Corpuscular Volume 95, Mean Corpuscular Hemoglobin 30.3, Mean Corpuscular Hemoglobin Concent 32.0, Red Cell Distribution Width 11.9, Platelet Count 257, Mean Platelet Volume 5.6L, Neutrophils (%) (Auto) 62.7, Lymphocytes ( %) (Auto) 22.1, Monocytes (%) (Auto) 12.4H, Eosinophils (%) (Auto) 1.9, Basophils (%) (Auto) 0.9, Sodium Level 138, Potassium Level 4.4, Chloride Level 108H, Carbon Dioxide Level 18L, Anion Gap 13, Blood Urea Nitrogen 33H, Creatinine 1.9H, Estimat Glomerular Filtration Rate , Glucose Level 86, Calcium Level 8.5 Current Medications Medications (Trade) Dose Ordered Sig/Floyd Route PRN Reason Start Time Stop Time Status Last Admin Dose Admin Acetaminophen (Tylenol) 650 mg Q4H PRN ORAL fever 05/12/19 22:00 06/11/19 21:59 05/13/19 17:58 Albuterol/ Ipratropium (Albuterol/ Ipratropium) 3 ml Q4H PRN HHN Shortness of Breath 05/12/19 22:00 05/17/19 21:59 Cefepime HCl 1 gm/ Dextrose 55 ml @ 110 mls/hr Q24H IVPB 05/13/19 11:00 05/20/19 10:59 05/15/19 11:01 Heparin Sodium (Porcine) (Heparin 5000 units/ml) 5,000 units EVERY 12 HOURS SUBQ 05/13/19 09:00 06/12/19 08:59 05/15/19 08:58 Liothyronine Sodium (Cytomel) 5 mcg DAILY ORAL 05/15/19 09:00 06/14/19 08:59 05/15/19 08:57 Morphine Sulfate (Morphine Sulfate) 2 mg Q4H PRN IVP Moderate Pain (Pain Scale 4-6) 05/12/19 22:00 05/19/19 21:59 Ondansetron HCl (Zofran) 4 mg Q6H PRN IVP Nausea & Vomiting 05/12/19 22:00 06/11/19 21:59 Polyethylene Glycol (Miralax) 17 gm DAILYPRN PRN ORAL Constipation 05/12/19 22:00 06/11/19 21:59 Temazepam (Restoril) 15 mg HSPRN PRN ORAL Insomnia 05/12/19 22:00 05/19/19 21:59 Stephan Perez MD May 15, 2019 12:17
--- NOTE | 2019-05-15 13:38 | NUR ---
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 98.6 HR 68 RR 20 B/P 109/69 RA 98% WBC 4.3 BUN 33 CR 1.9 IS: CEFEPIME IV ALB HHN MED/SURG STATUS
--- NOTE | 2019-05-15 14:48 | Infectious Diseases Prog Note ---
Assessment/Plan Assessment/Plan A: The patient is a 73-year-old female with: nl WBC >> Leukopenia Afebrile UTIs / Pyelonephritis UCx : [address] of the abdomen on 05/01/2019 showed no evidence of hydronephrosis Pyuria Rule out bacteremia. History of pulmonary MAC. Anemia ? MM fup by Hem/onc Rheumatoid arthritis. PLAN: continue the patient is on cefepime day # 3/ , upon DC will change to Levaquin x 3 d 05/13 Sp IV vancomycin day #1 monitor CBC Monitor BMP. Monitor cultures (blood, ) Subjective Allergies: Coded Allergies: No Known Allergies (Unverified , 10/02/15) Subjective no acute event Afebrile Objective Vital Signs Last 24 Hour Vital Signs Date Time Temp Pulse Resp B/P (MAP) Pulse Ox O2 Delivery O2 Flow Rate FiO2 05/15/19 12:00 98.6 68 17 109/69 (82) 97 05/15/19 09:57 77 20 97 Room Air 21 05/15/19 09:00 Room Air 05/15/19 08:00 98.7 80 16 110/68 (82) 96 05/15/19 04:00 99.0 70 18 133/77 (95) 96 05/15/19 00:00 98.9 69 20 131/70 (90) 94 05/14/19 21:00 Room Air 05/14/19 20:35 76 18 98 Room Air 21 05/14/19 20:00 99.8 71 20 121/66 (84) 96 05/14/19 16:00 98.9 76 18 113/60 (77) 97 Height (Feet): 5 Height (Inches): 1.00 Weight (Pounds): 95 HEENT: anicteric Respiratory/Chest: normal breath sounds Cardiovascular: normal rate Abdomen: soft, non tender Microbiology Date/Time Source Procedure Growth Status 05/13/19 00:00 Blood Blood Culture - Preliminary NO GROWTH AFTER 24 HOURS Resulted 05/13/19 00:00 Blood Blood Culture - Preliminary NO GROWTH AFTER 24 HOURS Resulted 05/12/19 19:30 Nasal Nares MRSA Culture - Final NO METHICILLIN RESISTANT STAPH AUREUS... Complete 05/12/19 18:38 Urine,Clean Catch Urine Culture - Final Gram Negative Poncho Complete 05/12/19 19:30 Rectum - Final NO CARBAPENEM-RESISTANT ENTEROBACTERI... Complete 05/12/19 19:30 Rectum VRE Culture - Final Enterococcus Faecium - Vre Complete Laboratory Tests Test 05/15/19 05:40 White Blood Count 4.3 K/UL (4.8-10.8) L Red Blood Count 2.86 M/UL (4.20-5.40) L Hemoglobin 8.7 G/DL (12.0-16.0) L Hematocrit 27.1 % (37.0-47.0) L Mean Corpuscular Volume 95 FL (80-99) Mean Corpuscular Hemoglobin 30.3 PG (27.0-31.0) Mean Corpuscular Hemoglobin Concent 32.0 G/DL (32.0-36.0) Red Cell Distribution Width 11.9 % (11.6-14.8) Platelet Count 257 K/UL (150-450) Mean Platelet Volume 5.6 FL (6.5-10.1) L Neutrophils (%) (Auto) 62.7 % (45.0-75.0) Lymphocytes (%) (Auto) 22.1 % (20.0-45.0) Monocytes (%) (Auto) 12.4 % (1.0-10.0) H Eosinophils (%) (Auto) 1.9 % (0.0-3.0) Basophils (%) (Auto) 0.9 % (0.0-2.0) Sodium Level 138 MMOL/L (136-145) Potassium Level 4.4 MMOL/L (3.5-5.1) Chloride Level 108 MMOL/L (98-107) H Carbon Dioxide Level 18 MMOL/L (21-32) L Anion Gap 13 mmol/L (5-15) Blood Urea Nitrogen 33 mg/dL (7-18) H Creatinine 1.9 MG/DL (0.55-1.30) H Estimat Glomerular Filtration Rate mL/min (>60) Glucose Level 86 MG/DL (74-106) Calcium Level 8.5 MG/DL (8.5-10.1) Current Medications Medications (Trade) Dose Ordered Sig/Floyd Route PRN Reason Start Time Stop Time Status Last Admin Dose Admin Acetaminophen (Tylenol) 650 mg Q4H PRN ORAL fever 05/12/19 22:00 06/11/19 21:59 05/13/19 17:58 Albuterol/ Ipratropium (Albuterol/ Ipratropium) 3 ml Q4H PRN HHN Shortness of Breath 05/12/19 22:00 05/17/19 21:59 Cefepime HCl 1 gm/ Dextrose 55 ml @ 110 mls/hr Q24H IVPB 05/13/19 11:00 05/20/19 10:59 05/15/19 11:01 Heparin Sodium (Porcine) (Heparin 5000 units/ml) 5,000 units EVERY 12 HOURS SUBQ 05/13/19 09:00 06/12/19 08:59 05/15/19 08:58 Liothyronine Sodium (Cytomel) 5 mcg DAILY ORAL 05/15/19 09:00 06/14/19 08:59 05/15/19 08:57 Morphine Sulfate (Morphine Sulfate) 2 mg Q4H PRN IVP Moderate Pain (Pain Scale 4-6) 05/12/19 22:00 05/19/19 21:59 Ondansetron HCl (Zofran) 4 mg Q6H PRN IVP Nausea & Vomiting 05/12/19 22:00 06/11/19 21:59 Polyethylene Glycol (Miralax) 17 gm DAILYPRN PRN ORAL Constipation 05/12/19 22:00 06/11/19 21:59 Temazepam (Restoril) 15 mg HSPRN PRN ORAL Insomnia 05/12/19 22:00 05/19/19 21:59 Ladarius High MD May 15, 2019 14:48
[2019-05-15 16:00] VITALS: BP 120/65
--- NOTE | 2019-05-15 19:25 | NUR ---
NURSE NOTES: Patient is in bed, awake, alert and verbal. Syriac speaking. No acute distress noted. IV site on left arm patent and intact. Fall precaution is in place. Bed in low and locked position. Bed alarm is on. Call light within reach. Encouraged patient to use call for assistance before getting out of bed.Patient will be monitored.
--- NOTE | 2019-05-15 19:30 | NUR ---
HAND-OFF: Report given to GLORIA Pineda.
[2019-05-15 20:00] VITALS: BP 107/57
--- NOTE | 2019-05-15 20:28 | NUR ---
NURSE NOTES: Patient is in bed, awake, alert and verbal. Barbadian speaking.Pt's son by bedside. Pt ambulated the length of hallway with the son. No acute distress noted. IV site on left arm patent and intact. Fall precaution is in place. Bed in low and locked position. Bed alarm is on. Call light within reach. Encouraged patient to use call for assistance before getting out of bed.Patient will be monitored. Trainee, Alina PrinceRN will be assisting in the care of this patient.
[2019-05-16] VITALS: BP 119/67
[2019-05-16 04:00] VITALS: BP 115/52
--- NOTE | 2019-05-16 07:15 | NUR ---
HAND-OFF: Report given to GLORIA Cuellar.
--- NOTE | 2019-05-16 07:17 | NUR ---
NURSE NOTES: Received pt in bed, AAO x 4. Chinese speaking. No c/o of pain/distress at this moment. IV on L wrist 22g intact and patent with saline lock. Side rails x 2. Bed in the lowest and locked. Call light within reach. Will continue to monitor
--- NOTE | 2019-05-16 07:38 | Pulmonology Progress Note ---
Assessment/Plan Assessment/Plan ASSESSMENT Acute on chronic renal failure Dysuria, possible UTI COPD/emphysema Severe protein calorie malnutrition Anemia Rheumatoid arthritis Monoclonal gammopathy, rule out multiple myeloma PLAN OF CARE [facility] floor IV fluid monitor renal parameters, lytes, correct electrolytes as needed, avoid nephrotoxic creat trending down O2 HHN prn DVT prophylaxis abx as per ID BCX negative , UCX + GNR with 10 K monitor H&H with goal to keep hemoglobin above 7 anemia work-up c/w anemia of chronic disease PPI stool OB GI recommended outpatient GI procedure oncologist follows; recommended consider bone marrow biopsy to rule out multiple myeloma at some point supportive care pain management nutritional recommendations implemented in plan of care case discussed and evaluated by supervising physician Subjective Allergies: Coded Allergies: No Known Allergies (Unverified , 10/02/15) Subjective afebrile, no leukocytosis, + dysuria, no flank pain Objective Last 24 Hour Vital Signs Date Time Temp Pulse Resp B/P (MAP) Pulse Ox O2 Delivery O2 Flow Rate FiO2 05/16/19 04:00 97.8 62 18 115/52 (73) 95 05/16/19 00:00 98.0 69 19 119/67 (84) 98 05/15/19 21:00 Room Air 05/15/19 20:07 70 18 98 Room Air 21 05/15/19 20:00 98.9 70 18 107/57 (74) 100 05/15/19 16:00 98.4 66 18 120/65 (83) 100 05/15/19 12:00 98.6 68 17 109/69 (82) 97 05/15/19 09:57 77 20 97 Room Air 21 05/15/19 09:00 Room Air 05/15/19 08:00 98.7 80 16 110/68 (82) 96 Intake and Output 05/15/19 05/16/19 19:00 07:00 Intake Total 855 ml 620 ml Balance 855 ml 620 ml Intake Oral 800 ml 620 ml IV Total 55 ml # Voids 5 3 # Bowel Movements 1 General Appearance: no acute distress, cachetic, other - awake, alert, resposnive German speaking female HEENT: normocephalic, atraumatic, anicteric, mucous membranes moist Respiratory/Chest: lungs clear - with moderate air exchange, no respiratory distress, no accessory muscle use Cardiovascular: normal peripheral pulses, normal rate Abdomen: soft, non tender, non distended Extremities: no edema, pedal pulses normal Neurologic/Psychiatric: no motor/sensory deficits, alert, oriented x 3, responsive Musculoskeletal: atrophy - BLE Current Medications Medications (Trade) Dose Ordered Sig/Floyd Route PRN Reason Start Time Stop Time Status Last Admin Dose Admin Acetaminophen (Tylenol) 650 mg Q4H PRN ORAL fever 05/12/19 22:00 06/11/19 21:59 05/13/19 17:58 Albuterol/ Ipratropium (Albuterol/ Ipratropium) 3 ml Q4H PRN HHN Shortness of Breath 05/12/19 22:00 05/17/19 21:59 Cefepime HCl 1 gm/ Dextrose 55 ml @ 110 mls/hr Q24H IVPB 05/13/19 11:00 05/22/19 23:59 05/15/19 11:01 Heparin Sodium (Porcine) (Heparin 5000 units/ml) 5,000 units EVERY 12 HOURS SUBQ 05/13/19 09:00 06/12/19 08:59 05/15/19 20:42 Liothyronine Sodium (Cytomel) 5 mcg DAILY ORAL 05/15/19 09:00 06/14/19 08:59 05/15/19 08:57 Morphine Sulfate (Morphine Sulfate) 2 mg Q4H PRN IVP Moderate Pain (Pain Scale 4-6) 05/12/19 22:00 05/19/19 21:59 Ondansetron HCl (Zofran) 4 mg Q6H PRN IVP Nausea & Vomiting 05/12/19 22:00 06/11/19 21:59 Polyethylene Glycol (Miralax) 17 gm DAILYPRN PRN ORAL Constipation 05/12/19 22:00 06/11/19 21:59 Temazepam (Restoril) 15 mg HSPRN PRN ORAL Insomnia 05/12/19 22:00 05/19/19 21:59 Nora Hinojosa NP May 16, 2019 07:38
[2019-05-16 08:00] VITALS: BP 121/65
[2019-05-16 08:04] LABS: BASOPHILS % (AUTO) 0.8 % (0.0-2.0); EOSINOPHILS % (AUTO) 2.4 % (0.0-3.0); HEMATOCRIT 25.2 % (37.0-47.0); HEMOGLOBIN 8.3 G/DL (12.0-16.0); LYMPHOCYTES % (AUTO) 29.5 % (20.0-45.0); MEAN CORPUSCULAR VOLUME 93 FL (80-99); MONOCYTES % (AUTO) 10.2 % (1.0-10.0); NEUTROPHILS % (AUTO) 57.1 % (45.0-75.0); PLATELET COUNT 283 K/UL (150-450); RED CELL DISTRIBUTION WIDTH 12.7 % (11.6-14.8); WHITE BLOOD COUNT 4.1 K/UL (4.8-10.8)
[2019-05-16] MEDS: Liothyronine 5mcg tab ORAL SCH (08:23)
[2019-05-16] MEDS: Heparin 5000 units/ml inj SUBQ SCH ×2 (08:24→21:25)
[2019-05-16 08:52] LABS: ANION GAP 9 mmol/L (5-15); BLOOD UREA NITROGEN 32 mg/dL (7-18); CALCIUM 8.8 MG/DL (8.5-10.1); CARBON DIOXIDE 21 MMOL/L (21-32); CHLORIDE 110 MMOL/L (98-107); CREATININE 1.7 MG/DL (0.55-1.30); POTASSIUM 4.3 MMOL/L (3.5-5.1); SODIUM 140 MMOL/L (136-145)
--- NOTE | 2019-05-16 09:30 | General Progress Note ---
Assessment/Plan Problem List: (1) Anemia ICD Codes: D64.9 - Anemia, unspecified SNOMED: 550878551 (2) Renal failure (ARF), acute on chronic ICD Codes: N17.9 - Acute kidney failure, unspecified; N18.9 - Chronic kidney disease, unspecified SNOMED: 952367107 (3) UTI (urinary tract infection) ICD Codes: N39.0 - Urinary tract infection, site not specified SNOMED: 24739683 (4) Severe protein-calorie malnutrition ICD Codes: E43 - Unspecified severe protein-calorie malnutrition SNOMED: 874523502, 286804674, 324380810 Status: unchanged Assessment/Plan: o2 pulm tx abx cbc bmp am gi heme eval Subjective Constitutional: Reports: weakness Allergies: Coded Allergies: No Known Allergies (Unverified , 10/02/15) All Systems: reviewed and negative except above Subjective sl anxious Objective Last 24 Hour Vital Signs Date Time Temp Pulse Resp B/P (MAP) Pulse Ox O2 Delivery O2 Flow Rate FiO2 05/16/19 08:00 98.5 65 18 121/65 (83) 98 05/16/19 04:00 97.8 62 18 115/52 (73) 95 05/16/19 00:00 98.0 69 19 119/67 (84) 98 05/15/19 21:00 Room Air 05/15/19 20:07 70 18 98 Room Air 21 05/15/19 20:00 98.9 70 18 107/57 (74) 100 05/15/19 16:00 98.4 66 18 120/65 (83) 100 05/15/19 12:00 98.6 68 17 109/69 (82) 97 05/15/19 09:57 77 20 97 Room Air 21 Intake and Output 05/15/19 05/16/19 19:00 07:00 Intake Total 855 ml 620 ml Balance 855 ml 620 ml Intake Oral 800 ml 620 ml IV Total 55 ml # Voids 5 3 # Bowel Movements 1 Laboratory Tests 05/16/19 06:19: White Blood Count 4.1L, Red Blood Count 2.70L, Hemoglobin 8.3L, Hematocrit 25.2L , Mean Corpuscular Volume 93, Mean Corpuscular Hemoglobin 30.7, Mean Corpuscular Hemoglobin Concent 33.0, Red Cell Distribution Width 12.7, Platelet Count 283, Mean Platelet Volume 4.9L, Neutrophils (%) (Auto) 57.1, Lymphocytes ( %) (Auto) 29.5, Monocytes (%) (Auto) 10.2H, Eosinophils (%) (Auto) 2.4, Basophils (%) (Auto) 0.8, Sodium Level 140, Potassium Level 4.3, Chloride Level 110H, Carbon Dioxide Level 21, Anion Gap 9, Blood Urea Nitrogen 32H, Creatinine 1.7H, Estimat Glomerular Filtration Rate , Glucose Level 84, Calcium Level 8.8 Height (Feet): 5 Height (Inches): 1.00 Weight (Pounds): 95 General Appearance: lethargic EENT: normal ENT inspection Neck: normal alignment Cardiovascular: normal peripheral pulses, normal rate, regular rhythm Respiratory/Chest: chest wall non-tender, lungs clear, normal breath sounds Abdomen: normal bowel sounds, non tender, soft Extremities: normal inspection Edema: no edema noted Arm (L), no edema noted Arm (R), no edema noted Leg (L), no edema noted Leg (R), no edema noted Pedal (L), no edema noted Pedal (R), no edema noted Generalized Neurologic: motor weakness Skin: normal pigmentation, warm/dry Isaak Herrera DO May 16, 2019 09:30
--- NOTE | 2019-05-16 09:33 | Nephrology Progress Note ---
Assessment/Plan Problem List: (1) ROLANDO (acute kidney injury) Assessment: Cr lowering (2) Renal failure (ARF), acute on chronic (3) Anemia (4) Severe protein-calorie malnutrition Assessment (1) ROLANDO (acute kidney injury) (2) Renal failure (ARF), acute on chronic (3) Severe anemia (4) Protein calorie mal nutrition (5) UTI Others: h/o bronchitis h/o abdominal pain and nausea, possibly enteritis ( by CT scan) RA Plan Plan Avoid nephrotoxics hydrate- NS monitor renal parameters check ferritin and Iron panel Subjective ROS Limited/Unobtainable: No Objective Objective Last 24 Hour Vital Signs Date Time Temp Pulse Resp B/P (MAP) Pulse Ox O2 Delivery O2 Flow Rate FiO2 05/16/19 09:00 Room Air 05/16/19 08:00 98.5 65 18 121/65 (83) 98 05/16/19 04:00 97.8 62 18 115/52 (73) 95 05/16/19 00:00 98.0 69 19 119/67 (84) 98 05/15/19 21:00 Room Air 05/15/19 20:07 70 18 98 Room Air 21 05/15/19 20:00 98.9 70 18 107/57 (74) 100 05/15/19 16:00 98.4 66 18 120/65 (83) 100 05/15/19 12:00 98.6 68 17 109/69 (82) 97 05/15/19 09:57 77 20 97 Room Air 21 Intake and Output 05/15/19 05/16/19 19:00 07:00 Intake Total 855 ml 620 ml Balance 855 ml 620 ml Intake Oral 800 ml 620 ml IV Total 55 ml # Voids 5 3 # Bowel Movements 1 Laboratory Tests 05/16/19 06:19: White Blood Count 4.1L, Red Blood Count 2.70L, Hemoglobin 8.3L, Hematocrit 25.2L , Mean Corpuscular Volume 93, Mean Corpuscular Hemoglobin 30.7, Mean Corpuscular Hemoglobin Concent 33.0, Red Cell Distribution Width 12.7, Platelet Count 283, Mean Platelet Volume 4.9L, Neutrophils (%) (Auto) 57.1, Lymphocytes ( %) (Auto) 29.5, Monocytes (%) (Auto) 10.2H, Eosinophils (%) (Auto) 2.4, Basophils (%) (Auto) 0.8, Sodium Level 140, Potassium Level 4.3, Chloride Level 110H, Carbon Dioxide Level 21, Anion Gap 9, Blood Urea Nitrogen 32H, Creatinine 1.7H, Estimat Glomerular Filtration Rate , Glucose Level 84, Calcium Level 8.8 Height (Feet): 5 Height (Inches): 1.00 Weight (Pounds): 95 General Appearance: no apparent distress Objective no change Isma Unger MD May 16, 2019 09:33
[2019-05-16] MEDS: Cefepime 1gm in D5W 55ml IVPB SCH (10:38)
[2019-05-16 12:00] VITALS: BP 98/57
--- NOTE | 2019-05-16 13:27 | General Progress Note ---
Assessment/Plan Status: unchanged Assessment/Plan: (1) Severe protein-calorie malnutrition ICD Codes: E43 - Unspecified severe protein-calorie malnutrition SNOMED: 845476396, 508206878, 613716437 (2) Pneumonia ICD Codes: J18.9 - Pneumonia, unspecified organism SNOMED: 562487968 (3) Anemia ICD Codes: D64.9 - Anemia, unspecified SNOMED: 194501519 Assessment/Plan This is a 73-year-old female with acute UTI and possible multiple myeloma, obvious source for her anemia. outpatient GI procedures OB stool r/o GI bleed prn transfusions ppi abx follow labs Subjective Allergies: Coded Allergies: No Known Allergies (Unverified , 10/02/15) Objective Last 24 Hour Vital Signs Date Time Temp Pulse Resp B/P (MAP) Pulse Ox O2 Delivery O2 Flow Rate FiO2 05/16/19 12:00 98.1 71 19 98/57 (71) 99 05/16/19 09:00 Room Air 05/16/19 08:20 75 18 98 Room Air 21 05/16/19 08:00 98.5 65 18 121/65 (83) 98 05/16/19 04:00 97.8 62 18 115/52 (73) 95 05/16/19 00:00 98.0 69 19 119/67 (84) 98 05/15/19 21:00 Room Air 05/15/19 20:07 70 18 98 Room Air 21 05/15/19 20:00 98.9 70 18 107/57 (74) 100 05/15/19 16:00 98.4 66 18 120/65 (83) 100 Intake and Output 05/15/19 05/16/19 18:59 06:59 Intake Total 855 ml 620 ml Balance 855 ml 620 ml Intake Oral 800 ml 620 ml IV Total 55 ml # Voids 5 3 # Bowel Movements 1 Laboratory Tests 05/16/19 06:19: White Blood Count 4.1L, Red Blood Count 2.70L, Hemoglobin 8.3L, Hematocrit 25.2L , Mean Corpuscular Volume 93, Mean Corpuscular Hemoglobin 30.7, Mean Corpuscular Hemoglobin Concent 33.0, Red Cell Distribution Width 12.7, Platelet Count 283, Mean Platelet Volume 4.9L, Neutrophils (%) (Auto) 57.1, Lymphocytes ( %) (Auto) 29.5, Monocytes (%) (Auto) 10.2H, Eosinophils (%) (Auto) 2.4, Basophils (%) (Auto) 0.8, Sodium Level 140, Potassium Level 4.3, Chloride Level 110H, Carbon Dioxide Level 21, Anion Gap 9, Blood Urea Nitrogen 32H, Creatinine 1.7H, Estimat Glomerular Filtration Rate , Glucose Level 84, Calcium Level 8.8 Height (Feet): 5 Height (Inches): 1.00 Weight (Pounds): 95 General Appearance: alert EENT: normal ENT inspection Neck: supple Cardiovascular: normal rate Respiratory/Chest: decreased breath sounds Abdomen: normal bowel sounds, non tender, soft Extremities: non-tender Kleber Skaggs MD May 16, 2019 13:27
[2019-05-16] MEDS ORDERED: Albuterol/Ipratropium 3ml neb HHN PRN (14:00)
[2019-05-16 16:00] VITALS: BP 111/61
--- NOTE | 2019-05-16 17:00 | Hematology/Onc Progress Note ---
Assessment/Plan Assessment/Plan ASSESSMENT/Recs # Monoclonal gammopathy noted on both IGG >3000, and immunofixation of the serum , cocerning for multiple myeloma. with LEUKOPENIA, decreased white blood cell count, (leukopenia) - wbc under 4k, could also be related to infection v multiple myeloma --> continue antibiotics with ID service, appreciate recs --> medications have been reviewed --> hepatitis and hiv in past negative --> imaging of abdomen reviewed --> Prior igg was 3961-->2453 and spep was abnormal concerning for myeloma --> immunofixation of prior visit ++ for monoclonal proteinwith lambda light chain specificity --> may at some point consider bone marrow biopsy (WILL NOT SEND CYTOGENETICS) just simple biopsy # Anemia of chronic disease due to underlying chronic medical issues, multifactorial --> Anemia workup has been ordered from yehuda gamez, and reviewed, ferritin is >100 --> No evidence of hemolysis is noted, peripheral smear has been reviewed --> Hgb goal >7. Transfuse prn. --> Epogen or iron at this time is not particularly indicated --> Medications have been reviewed --> egd/colo per gi on prn basis # Abdominal pain, hx enteritis, a antibiotics per Infectious Disease. --> on abx cefepime --> O2 and pulmonary treatment. # Headache, chronic # Recent tristan # Dvt ppx heparin sq The timing of this note does not necessarily reflect the time of the patient was seen. Greatly appreciate consultation! Subjective Constitutional: Denies: no symptoms, chills, fever, malaise, weakness, other HEENT: Denies: no symptoms, eye pain, blurred vision, tearing, double vision, ear pain, ear discharge, nose pain, nose congestion, throat pain, throat swelling, mouth pain, mouth swelling, other Cardiovascular: Denies: no symptoms, chest pain, edema, irregular heart rate, lightheadedness, palpitations, syncope, other Respiratory: Denies: no symptoms, cough, shortness of breath, SOB with excertion, SOB at rest, sputum, wheezing, other Gastrointestinal/Abdominal: Denies: no symptoms, abdomen distended, abdominal pain, black stools, tarry stools, blood in stool, constipated, diarrhea, difficulty swallowing, nausea, poor appetite, poor fluid intake, rectal bleeding , vomiting, other Neurologic/Psychiatric: Denies: no symptoms, anxiety, depressed, emotional problems, headache, numbness, paresthesia, pre-existing deficit, seizure, tingling, tremors, weakness, other Allergies: Coded Allergies: No Known Allergies (Unverified , 10/02/15) Subjective 05/15: no bleeding, no chills, seen with pcp, labs reviewed, seen by gi 05/16: no events, no changes, no bleeding, reviewed labs and no f/c Objective Objective Current Medications Medications (Trade) Dose Ordered Sig/Floyd Route PRN Reason Start Time Stop Time Status Last Admin Dose Admin Acetaminophen (Tylenol) 650 mg Q4H PRN ORAL fever 05/12/19 22:00 06/11/19 21:59 05/13/19 17:58 Albuterol/ Ipratropium (Albuterol/ Ipratropium) 3 ml Q4H PRN HHN Shortness of Breath 05/16/19 14:00 05/21/19 13:59 Cefepime HCl 1 gm/ Dextrose 55 ml @ 110 mls/hr Q24H IVPB 05/13/19 11:00 05/22/19 23:59 05/16/19 10:38 Heparin Sodium (Porcine) (Heparin 5000 units/ml) 5,000 units EVERY 12 HOURS SUBQ 05/13/19 09:00 06/12/19 08:59 05/16/19 08:24 Liothyronine Sodium (Cytomel) 5 mcg DAILY ORAL 05/15/19 09:00 06/14/19 08:59 05/16/19 08:23 Morphine Sulfate (Morphine Sulfate) 2 mg Q4H PRN IVP Moderate Pain (Pain Scale 4-6) 05/12/19 22:00 05/19/19 21:59 Ondansetron HCl (Zofran) 4 mg Q6H PRN IVP Nausea & Vomiting 05/12/19 22:00 06/11/19 21:59 Polyethylene Glycol (Miralax) 17 gm DAILYPRN PRN ORAL Constipation 05/12/19 22:00 06/11/19 21:59 Temazepam (Restoril) 15 mg HSPRN PRN ORAL Insomnia 05/12/19 22:00 05/19/19 21:59 Last 24 Hour Vital Signs Date Time Temp Pulse Resp B/P (MAP) Pulse Ox O2 Delivery O2 Flow Rate FiO2 05/16/19 16:00 98.1 67 18 111/61 (78) 99 05/16/19 12:00 98.1 71 19 98/57 (71) 99 05/16/19 09:00 Room Air 05/16/19 08:20 75 18 98 Room Air 21 05/16/19 08:00 98.5 65 18 121/65 (83) 98 05/16/19 04:00 97.8 62 18 115/52 (73) 95 05/16/19 00:00 98.0 69 19 119/67 (84) 98 05/15/19 21:00 Room Air 05/15/19 20:07 70 18 98 Room Air 21 05/15/19 20:00 98.9 70 18 107/57 (74) 100 05/15/19 16:00 98.4 66 18 120/65 (83) 100 05/15/19 12:00 98.6 68 17 109/69 (82) 97 05/15/19 09:57 77 20 97 Room Air 21 05/15/19 09:00 Room Air 05/15/19 08:00 98.7 80 16 110/68 (82) 96 05/15/19 04:00 99.0 70 18 133/77 (95) 96 05/15/19 00:00 98.9 69 20 131/70 (90) 94 05/14/19 21:00 Room Air 05/14/19 20:35 76 18 98 Room Air 21 05/14/19 20:00 99.8 71 20 121/66 (84) 96 Intake and Output 05/15/19 05/16/19 19:00 07:00 Intake Total 855 ml 620 ml Balance 855 ml 620 ml Intake Oral 800 ml 620 ml IV Total 55 ml # Voids 5 3 # Bowel Movements 1 Labs Test 05/14/19 04:48 05/15/19 05:40 05/16/19 06:19 White Blood Count 4.6 K/UL (4.8-10.8) 4.3 K/UL (4.8-10.8) 4.1 K/UL (4.8-10.8) Red Blood Count 2.69 M/UL (4.20-5.40) 2.86 M/UL (4.20-5.40) 2.70 M/UL (4.20-5.40) Hemoglobin 8.3 G/DL (12.0-16.0) 8.7 G/DL (12.0-16.0) 8.3 G/DL (12.0-16.0) Hematocrit 25.3 % (37.0-47.0) 27.1 % (37.0-47.0) 25.2 % (37.0-47.0) Mean Corpuscular Volume 94 FL (80-99) 95 FL (80-99) 93 FL (80-99) Mean Corpuscular Hemoglobin 30.8 PG (27.0-31.0) 30.3 PG (27.0-31.0) 30.7 PG (27.0-31.0) Mean Corpuscular Hemoglobin Concent 32.7 G/DL (32.0-36.0) 32.0 G/DL (32.0-36.0) 33.0 G/DL (32.0-36.0) Red Cell Distribution Width 12.5 % (11.6-14.8) 11.9 % (11.6-14.8) 12.7 % (11.6-14.8) Platelet Count 267 K/UL (150-450) 257 K/UL (150-450) 283 K/UL (150-450) Mean Platelet Volume 5.2 FL (6.5-10.1) 5.6 FL (6.5-10.1) 4.9 FL (6.5-10.1) Neutrophils (%) (Auto) 69.4 % (45.0-75.0) 62.7 % (45.0-75.0) 57.1 % (45.0-75.0) Lymphocytes (%) (Auto) 16.0 % (20.0-45.0) 22.1 % (20.0-45.0) 29.5 % (20.0-45.0) Monocytes (%) (Auto) 11.7 % (1.0-10.0) 12.4 % (1.0-10.0) 10.2 % (1.0-10.0) Eosinophils (%) (Auto) 2.1 % (0.0-3.0) 1.9 % (0.0-3.0) 2.4 % (0.0-3.0) Basophils (%) (Auto) 0.7 % (0.0-2.0) 0.9 % (0.0-2.0) 0.8 % (0.0-2.0) Sodium Level 141 MMOL/L (136-145) 138 MMOL/L (136-145) 140 MMOL/L (136-145) Potassium Level 4.6 MMOL/L (3.5-5.1) 4.4 MMOL/L (3.5-5.1) 4.3 MMOL/L (3.5-5.1) Chloride Level 111 MMOL/L (98-107) 108 MMOL/L (98-107) 110 MMOL/L (98-107) Carbon Dioxide Level 22 MMOL/L (21-32) 18 MMOL/L (21-32) 21 MMOL/L (21-32) Anion Gap 8 mmol/L (5-15) 13 mmol/L (5-15) 9 mmol/L (5-15) Blood Urea Nitrogen 39 mg/dL (7-18) 33 mg/dL (7-18) 32 mg/dL (7-18) Creatinine 1.9 MG/DL (0.55-1.30) 1.9 MG/DL (0.55-1.30) 1.7 MG/DL (0.55-1.30) Estimat Glomerular Filtration Rate mL/min (>60) mL/min (>60) mL/min (>60) Glucose Level 94 MG/DL (74-106) 86 MG/DL (74-106) 84 MG/DL (74-106) Uric Acid 5.4 MG/DL (2.6-7.2) Calcium Level 8.1 MG/DL (8.5-10.1) 8.5 MG/DL (8.5-10.1) 8.8 MG/DL (8.5-10.1) Phosphorus Level 3.5 MG/DL (2.5-4.9) Magnesium Level 1.8 MG/DL (1.8-2.4) Iron Level 28 ug/dL (50-175) Total Iron Binding Capacity 156 ug/dL (250-450) Percent Iron Saturation 18 % (15-50) Unsaturated Iron Binding 128 ug/dL (112-346) Ferritin 137 NG/ML (8-388) Total Bilirubin 0.3 MG/DL (0.2-1.0) Gamma Glutamyl Transpeptidase 13 U/L (5-85) Aspartate Amino Transf (AST/SGOT) 19 U/L (15-37) Alanine Aminotransferase (ALT/SGPT) 11 U/L (12-78) Alkaline Phosphatase 65 U/L (46-116) C-Reactive Protein, Quantitative 8.2 mg/dL (0.00-0.90) Pro-B-Type Natriuretic Peptide 2044 pg/mL (0-125) Total Protein 7.1 G/DL (6.4-8.2) Albumin 2.2 G/DL (3.4-5.0) Globulin 4.9 g/dL Albumin/Globulin Ratio 0.4 (1.0-2.7) Triglycerides Level 92 MG/DL (30-150) Cholesterol Level 108 MG/DL (< 200) LDL Cholesterol 64 mg/dL (<100) HDL Cholesterol 29 MG/DL (40-60) Cholesterol/HDL Ratio 3.7 (3.3-4.4) Vitamin B12 Level 495 PG/ML (193-986) Folate 11.2 NG/ML (8.6-58.9) Thyroid Stimulating Hormone (TSH) 3.279 uiU/mL (0.358-3.740) Free Thyroxine 1.20 NG/DL (0.76-1.46) Free Triiodothyronine 1.0 pg/mL (2.3-4.2) Height (Feet): 5 Height (Inches): 1.00 Weight (Pounds): 95 Objective PHYSICAL EXAMINATION: GENERAL: Calm in bed, oriented x3, slight short of breath. VITAL SIGNS: reviewed CARDIOVASCULAR: No murmur. LUNGS: Poor air exchange. ABDOMEN: Bowel sounds distant. EXTREMITIES: No cyanosis or edema. NEUROLOGIC: The patient moves all extremities, slightly weak. Emiliano Mccray MD May 16, 2019 17:00
--- NOTE | 2019-05-16 19:24 | NUR ---
HAND-OFF: Report given to GLORIA Lutz.
--- NOTE | 2019-05-16 19:26 | NUR ---
NURSE NOTES: Received pt in bed, AAO x 4. Tam[place] speaking. No c/o of pain/distress at this moment. IV on L wrist 22g intact and patent, saline locked. Bed is in the lowest position, locked, side rails x2, call light within reach, family at bedside. Will continue to monitor
[2019-05-16 20:00] VITALS: BP 121/78
[2019-05-17] VITALS: BP 115/70
[2019-05-17 04:00] VITALS: BP 109/47
[2019-05-17 07:13] LABS: BASOPHILS % (AUTO) 1.3 % (0.0-2.0); EOSINOPHILS % (AUTO) 3.6 % (0.0-3.0); HEMATOCRIT 24.5 % (37.0-47.0); LYMPHOCYTES % (AUTO) 29.3 % (20.0-45.0); MEAN CORPUSCULAR VOLUME 93 FL (80-99); MONOCYTES % (AUTO) 10.8 % (1.0-10.0); NEUTROPHILS % (AUTO) 55.1 % (45.0-75.0); PLATELET COUNT 307 K/UL (150-450); RED BLOOD COUNT 2.63 M/UL (4.20-5.40); RED CELL DISTRIBUTION WIDTH 12.4 % (11.6-14.8)
[2019-05-17 07:19] LABS: ANION GAP 9 mmol/L (5-15); BLOOD UREA NITROGEN 41 mg/dL (7-18); CALCIUM 8.7 MG/DL (8.5-10.1); CARBON DIOXIDE 23 MMOL/L (21-32); CHLORIDE 109 MMOL/L (98-107); CREATININE 1.6 MG/DL (0.55-1.30); POTASSIUM 4.5 MMOL/L (3.5-5.1); SODIUM 141 MMOL/L (136-145)
--- NOTE | 2019-05-17 07:24 | General Progress Note ---
Assessment/Plan Status: unchanged Assessment/Plan: (1) Severe protein-calorie malnutrition ICD Codes: E43 - Unspecified severe protein-calorie malnutrition SNOMED: 125015965, 619576330, 666882555 (2) Pneumonia ICD Codes: J18.9 - Pneumonia, unspecified organism SNOMED: 426915636 (3) Anemia ICD Codes: D64.9 - Anemia, unspecified SNOMED: 915406421 Assessment/Plan This is a 73-year-old female with acute UTI and possible multiple myeloma, obvious source for her anemia. outpatient GI procedures OB stool r/o GI bleed prn transfusions ppi abx follow labs Subjective ROS Limited/Unobtainable: Yes Allergies: Coded Allergies: No Known Allergies (Unverified , 10/02/15) Objective Last 24 Hour Vital Signs Date Time Temp Pulse Resp B/P (MAP) Pulse Ox O2 Delivery O2 Flow Rate FiO2 05/17/19 04:00 97.6 62 18 109/47 (67) 98 05/17/19 00:00 98.0 70 18 115/70 (85) 98 05/16/19 21:24 77 18 98 Room Air 21 05/16/19 21:00 Room Air 05/16/19 20:00 98.2 72 19 121/78 (92) 95 05/16/19 16:00 98.1 67 18 111/61 (78) 99 05/16/19 12:00 98.1 71 19 98/57 (71) 99 05/16/19 09:00 Room Air 05/16/19 08:20 75 18 98 Room Air 21 05/16/19 08:00 98.5 65 18 121/65 (83) 98 Intake and Output 05/16/19 05/17/19 19:00 07:00 Intake Total 955 ml 2900 ml Balance 955 ml 2900 ml Intake Oral 900 ml 900 ml IV Total 55 ml 2000 ml # Voids 3 2 # Bowel Movements 1 Laboratory Tests 05/17/19 05:50: White Blood Count [Pending], Red Blood Count [Pending], Hemoglobin [Pending], Hematocrit [Pending], Mean Corpuscular Volume [Pending], Mean Corpuscular Hemoglobin [Pending], Mean Corpuscular Hemoglobin Concent [Pending], Red Cell Distribution Width [Pending], Platelet Count [Pending], Mean Platelet Volume [ Pending], Neutrophils (%) (Auto) [Pending], Lymphocytes (%) (Auto) [Pending], Monocytes (%) (Auto) [Pending], Eosinophils (%) (Auto) [Pending], Basophils (%) (Auto) [Pending], Sodium Level 141, Potassium Level 4.5, Chloride Level 109H, Carbon Dioxide Level 23, Anion Gap 9, Blood Urea Nitrogen 41H, Creatinine 1.6H, Estimat Glomerular Filtration Rate , Glucose Level 82, Calcium Level 8.7 Height (Feet): 5 Height (Inches): 1.00 Weight (Pounds): 95 General Appearance: alert EENT: normal ENT inspection Neck: supple Cardiovascular: normal rate Respiratory/Chest: decreased breath sounds Abdomen: normal bowel sounds, non tender, soft Extremities: non-tender Kleber Skaggs MD May 17, 2019 07:24
--- NOTE | 2019-05-17 07:35 | General Progress Note ---
Assessment/Plan Problem List: (1) Anemia ICD Codes: D64.9 - Anemia, unspecified SNOMED: 971915326 (2) Renal failure (ARF), acute on chronic ICD Codes: N17.9 - Acute kidney failure, unspecified; N18.9 - Chronic kidney disease, unspecified SNOMED: 321998495 (3) UTI (urinary tract infection) ICD Codes: N39.0 - Urinary tract infection, site not specified SNOMED: 03186431 (4) Severe protein-calorie malnutrition ICD Codes: E43 - Unspecified severe protein-calorie malnutrition SNOMED: 525188678, 215182284, 266371494 Status: stable, progressing, unchanged Assessment/Plan: o2 pulm tx abx cbc bmp am gi heme eval Subjective Constitutional: Reports: weakness Allergies: Coded Allergies: No Known Allergies (Unverified , 10/02/15) All Systems: reviewed and negative except above Subjective sl anxious Objective Last 24 Hour Vital Signs Date Time Temp Pulse Resp B/P (MAP) Pulse Ox O2 Delivery O2 Flow Rate FiO2 05/17/19 04:00 97.6 62 18 109/47 (67) 98 05/17/19 00:00 98.0 70 18 115/70 (85) 98 05/16/19 21:24 77 18 98 Room Air 21 05/16/19 21:00 Room Air 05/16/19 20:00 98.2 72 19 121/78 (92) 95 05/16/19 16:00 98.1 67 18 111/61 (78) 99 05/16/19 12:00 98.1 71 19 98/57 (71) 99 05/16/19 09:00 Room Air 05/16/19 08:20 75 18 98 Room Air 21 05/16/19 08:00 98.5 65 18 121/65 (83) 98 Intake and Output 05/16/19 05/17/19 19:00 07:00 Intake Total 955 ml 2900 ml Balance 955 ml 2900 ml Intake Oral 900 ml 900 ml IV Total 55 ml 2000 ml # Voids 3 2 # Bowel Movements 1 Laboratory Tests 05/17/19 05:50: White Blood Count 4.0L, Red Blood Count 2.63L, Hemoglobin 8.0L, Hematocrit 24.5L , Mean Corpuscular Volume 93, Mean Corpuscular Hemoglobin 30.5, Mean Corpuscular Hemoglobin Concent 32.7, Red Cell Distribution Width 12.4, Platelet Count 307, Mean Platelet Volume 4.8L, Neutrophils (%) (Auto) 55.1, Lymphocytes ( %) (Auto) 29.3, Monocytes (%) (Auto) 10.8H, Eosinophils (%) (Auto) 3.6H, Basophils (%) (Auto) 1.3, Sodium Level 141, Potassium Level 4.5, Chloride Level 109H, Carbon Dioxide Level 23, Anion Gap 9, Blood Urea Nitrogen 41H, Creatinine 1.6H, Estimat Glomerular Filtration Rate , Glucose Level 82, Calcium Level 8.7 Height (Feet): 5 Height (Inches): 1.00 Weight (Pounds): 95 General Appearance: lethargic EENT: normal ENT inspection Neck: normal alignment Cardiovascular: normal peripheral pulses, normal rate, regular rhythm Respiratory/Chest: chest wall non-tender, lungs clear, normal breath sounds Abdomen: normal bowel sounds, non tender, soft Extremities: normal inspection Edema: no edema noted Arm (L), no edema noted Arm (R), no edema noted Leg (L), no edema noted Leg (R), no edema noted Pedal (L), no edema noted Pedal (R), no edema noted Generalized Neurologic: motor weakness Skin: normal pigmentation, warm/dry Isaak Herrera DO May 17, 2019 07:35
--- NOTE | 2019-05-17 07:57 | Pulmonology Progress Note ---
Assessment/Plan Assessment/Plan ASSESSMENT Acute on chronic renal failure Dysuria, probably UTI COPD/emphysema Severe protein calorie malnutrition Anemia Rheumatoid arthritis Monoclonal gammopathy, rule out multiple myeloma PLAN OF CARE [facility] floor IV fluid monitor renal parameters, lytes, correct electrolytes as needed, avoid nephrotoxic creat trending down O2 HHN prn DVT prophylaxis abx as per ID BCX negative , UCX + GNR with 10 K monitor H&H with goal to keep hemoglobin above 7 anemia work-up c/w anemia of chronic disease PPI stool OB GI recommended outpatient GI procedure oncologist follows; recommended consider bone marrow biopsy to rule out multiple myeloma at some point supportive care pain management nutritional recommendations implemented in plan of care case discussed and evaluated by supervising physician Subjective Allergies: Coded Allergies: No Known Allergies (Unverified , 10/02/15) Subjective afebrile, no leukocytosis, + dysuria, no flank pain creat trending down Objective Last 24 Hour Vital Signs Date Time Temp Pulse Resp B/P (MAP) Pulse Ox O2 Delivery O2 Flow Rate FiO2 05/17/19 04:00 97.6 62 18 109/47 (67) 98 05/17/19 00:00 98.0 70 18 115/70 (85) 98 05/16/19 21:24 77 18 98 Room Air 21 05/16/19 21:00 Room Air 05/16/19 20:00 98.2 72 19 121/78 (92) 95 05/16/19 16:00 98.1 67 18 111/61 (78) 99 05/16/19 12:00 98.1 71 19 98/57 (71) 99 05/16/19 09:00 Room Air 05/16/19 08:20 75 18 98 Room Air 21 05/16/19 08:00 98.5 65 18 121/65 (83) 98 Intake and Output 05/16/19 05/17/19 19:00 07:00 Intake Total 955 ml 2900 ml Balance 955 ml 2900 ml Intake Oral 900 ml 900 ml IV Total 55 ml 2000 ml # Voids 3 2 # Bowel Movements 1 Objective General Appearance: no acute distress, cachetic, awake, alert, responsive Frisian speaking female HEENT: normocephalic, atraumatic, anicteric, mucous membranes moist Respiratory/Chest: lungs clear with moderate air exchange, no respiratory distress, no accessory muscle use Cardiovascular: normal peripheral pulses, normal rate Abdomen: soft, non tender, non distended Extremities: no edema, pedal pulses normal Neurologic/Psychiatric: no motor/sensory deficits, alert, oriented x 3, responsive Musculoskeletal: atrophy - BLE Laboratory Tests 05/17/19 05:50: White Blood Count 4.0L, Red Blood Count 2.63L, Hemoglobin 8.0L, Hematocrit 24.5L , Mean Corpuscular Volume 93, Mean Corpuscular Hemoglobin 30.5, Mean Corpuscular Hemoglobin Concent 32.7, Red Cell Distribution Width 12.4, Platelet Count 307, Mean Platelet Volume 4.8L, Neutrophils (%) (Auto) 55.1, Lymphocytes ( %) (Auto) 29.3, Monocytes (%) (Auto) 10.8H, Eosinophils (%) (Auto) 3.6H, Basophils (%) (Auto) 1.3, Sodium Level 141, Potassium Level 4.5, Chloride Level 109H, Carbon Dioxide Level 23, Anion Gap 9, Blood Urea Nitrogen 41H, Creatinine 1.6H, Estimat Glomerular Filtration Rate , Glucose Level 82, Calcium Level 8.7 Current Medications Medications (Trade) Dose Ordered Sig/Floyd Route PRN Reason Start Time Stop Time Status Last Admin Dose Admin Acetaminophen (Tylenol) 650 mg Q4H PRN ORAL fever 05/12/19 22:00 06/11/19 21:59 05/13/19 17:58 Albuterol/ Ipratropium (Albuterol/ Ipratropium) 3 ml Q4H PRN HHN Shortness of Breath 05/16/19 14:00 05/21/19 13:59 Cefepime HCl 1 gm/ Dextrose 55 ml @ 110 mls/hr Q24H IVPB 05/13/19 11:00 05/22/19 23:59 05/16/19 10:38 Heparin Sodium (Porcine) (Heparin 5000 units/ml) 5,000 units EVERY 12 HOURS SUBQ 05/13/19 09:00 06/12/19 08:59 05/16/19 21:25 Liothyronine Sodium (Cytomel) 5 mcg DAILY ORAL 05/15/19 09:00 06/14/19 08:59 05/16/19 08:23 Morphine Sulfate (Morphine Sulfate) 2 mg Q4H PRN IVP Moderate Pain (Pain Scale 4-6) 05/12/19 22:00 05/19/19 21:59 Ondansetron HCl (Zofran) 4 mg Q6H PRN IVP Nausea & Vomiting 05/12/19 22:00 06/11/19 21:59 Polyethylene Glycol (Miralax) 17 gm DAILYPRN PRN ORAL Constipation 05/12/19 22:00 06/11/19 21:59 Temazepam (Restoril) 15 mg HSPRN PRN ORAL Insomnia 05/12/19 22:00 05/19/19 21:59 Nora Hinojosa LOCOMOTIVE OPERATOR May 17, 2019 07:57
[2019-05-17 08:00] VITALS: BP 95/55
--- NOTE | 2019-05-17 08:00 | NUR ---
NURSE NOTES: Nurse report given by GLORIA Lutz. Patient's sleeping in bed but easily awake. Denies pain, no s/s of distress or SOB. Bed low and locked, call light within reach, side rails x 2, safety precaution is armed. IV is patent, saline locked and asymptomatic. AO x 3. Will continue to monitor.
[2019-05-17] MEDS: Liothyronine 5mcg tab ORAL SCH (09:21)
[2019-05-17] MEDS: Heparin 5000 units/ml inj SUBQ SCH ×2 (09:26→20:15)
[2019-05-17 12:00] VITALS: BP 100/51
[2019-05-17] MEDS: Cefepime 1gm in D5W 55ml IVPB SCH (12:26)
--- NOTE | 2019-05-17 14:29 | Nephrology Progress Note ---
Assessment/Plan Problem List: (1) ROLANDO (acute kidney injury) Assessment: Cr lowering (2) Renal failure (ARF), acute on chronic (3) Anemia (4) Severe protein-calorie malnutrition Assessment (1) ROLANDO (acute kidney injury) (2) Renal failure (ARF), acute on chronic (3) Severe anemia (4) Protein calorie mal nutrition (5) UTI Others: h/o bronchitis h/o abdominal pain and nausea, possibly enteritis ( by CT scan) RA Plan Plan Avoid nephrotoxics hydrate- NS monitor renal parameters check ferritin and Iron panel Subjective ROS Limited/Unobtainable: No Constitutional: Reports: malaise Objective Objective Last 24 Hour Vital Signs Date Time Temp Pulse Resp B/P (MAP) Pulse Ox O2 Delivery O2 Flow Rate FiO2 05/17/19 12:00 98.5 66 18 100/51 (67) 95 05/17/19 09:00 Room Air 05/17/19 08:00 98.7 86 18 95/55 (68) 96 05/17/19 07:31 70 18 97 Room Air 21 05/17/19 04:00 97.6 62 18 109/47 (67) 98 05/17/19 00:00 98.0 70 18 115/70 (85) 98 05/16/19 21:24 77 18 98 Room Air 21 05/16/19 21:00 Room Air 05/16/19 20:00 98.2 72 19 121/78 (92) 95 05/16/19 16:00 98.1 67 18 111/61 (78) 99 Intake and Output 05/16/19 05/17/19 19:00 07:00 Intake Total 955 ml 2900 ml Balance 955 ml 2900 ml Intake Oral 900 ml 900 ml IV Total 55 ml 2000 ml # Voids 3 2 # Bowel Movements 1 Laboratory Tests 05/17/19 05:50: White Blood Count 4.0L, Red Blood Count 2.63L, Hemoglobin 8.0L, Hematocrit 24.5L , Mean Corpuscular Volume 93, Mean Corpuscular Hemoglobin 30.5, Mean Corpuscular Hemoglobin Concent 32.7, Red Cell Distribution Width 12.4, Platelet Count 307, Mean Platelet Volume 4.8L, Neutrophils (%) (Auto) 55.1, Lymphocytes ( %) (Auto) 29.3, Monocytes (%) (Auto) 10.8H, Eosinophils (%) (Auto) 3.6H, Basophils (%) (Auto) 1.3, Sodium Level 141, Potassium Level 4.5, Chloride Level 109H, Carbon Dioxide Level 23, Anion Gap 9, Blood Urea Nitrogen 41H, Creatinine 1.6H, Estimat Glomerular Filtration Rate , Glucose Level 82, Calcium Level 8.7 Height (Feet): 5 Height (Inches): 1.00 Weight (Pounds): 95 General Appearance: no apparent distress Objective no change Isma Unger MD May 17, 2019 14:29
[2019-05-17 16:00] VITALS: BP 102/60
--- NOTE | 2019-05-17 19:30 | Infectious Diseases Prog Note ---
Assessment/Plan Assessment/Plan A: The patient is a 73-year-old female with: nl WBC >> Leukopenia Afebrile UTIs / Pyelonephritis UCx : [address] of the abdomen on 05/01/2019 showed no evidence of hydronephrosis Pyuria History of pulmonary MAC. Anemia ? MM fup by Hem/onc Rheumatoid arthritis. PLAN: continue the patient is on cefepime day # 5/10 , upon DC will change to Keflex x 5 d 05/13 Sp IV vancomycin day #1 monitor CBC Monitor BMP. Monitor cultures (blood, ) Subjective Allergies: Coded Allergies: No Known Allergies (Unverified , 10/02/15) Subjective no acute event Afebrile Objective Vital Signs Last 24 Hour Vital Signs Date Time Temp Pulse Resp B/P (MAP) Pulse Ox O2 Delivery O2 Flow Rate FiO2 05/17/19 16:00 98.0 75 16 102/60 (74) 96 05/17/19 12:00 98.5 66 18 100/51 (67) 95 05/17/19 09:00 Room Air 05/17/19 08:00 98.7 86 18 95/55 (68) 96 05/17/19 07:31 70 18 97 Room Air 21 05/17/19 04:00 97.6 62 18 109/47 (67) 98 05/17/19 00:00 98.0 70 18 115/70 (85) 98 05/16/19 21:24 77 18 98 Room Air 21 05/16/19 21:00 Room Air 05/16/19 20:00 98.2 72 19 121/78 (92) 95 Height (Feet): 5 Height (Inches): 1.00 Weight (Pounds): 95 HEENT: anicteric Respiratory/Chest: normal breath sounds Cardiovascular: regular rhythm Abdomen: soft, non tender Laboratory Tests Test 05/17/19 05:50 White Blood Count 4.0 K/UL (4.8-10.8) L Red Blood Count 2.63 M/UL (4.20-5.40) L Hemoglobin 8.0 G/DL (12.0-16.0) L Hematocrit 24.5 % (37.0-47.0) L Mean Corpuscular Volume 93 FL (80-99) Mean Corpuscular Hemoglobin 30.5 PG (27.0-31.0) Mean Corpuscular Hemoglobin Concent 32.7 G/DL (32.0-36.0) Red Cell Distribution Width 12.4 % (11.6-14.8) Platelet Count 307 K/UL (150-450) Mean Platelet Volume 4.8 FL (6.5-10.1) L Neutrophils (%) (Auto) 55.1 % (45.0-75.0) Lymphocytes (%) (Auto) 29.3 % (20.0-45.0) Monocytes (%) (Auto) 10.8 % (1.0-10.0) H Eosinophils (%) (Auto) 3.6 % (0.0-3.0) H Basophils (%) (Auto) 1.3 % (0.0-2.0) Sodium Level 141 MMOL/L (136-145) Potassium Level 4.5 MMOL/L (3.5-5.1) Chloride Level 109 MMOL/L (98-107) H Carbon Dioxide Level 23 MMOL/L (21-32) Anion Gap 9 mmol/L (5-15) Blood Urea Nitrogen 41 mg/dL (7-18) H Creatinine 1.6 MG/DL (0.55-1.30) H Estimat Glomerular Filtration Rate mL/min (>60) Glucose Level 82 MG/DL (74-106) Calcium Level 8.7 MG/DL (8.5-10.1) Current Medications Medications (Trade) Dose Ordered Sig/Floyd Route PRN Reason Start Time Stop Time Status Last Admin Dose Admin Acetaminophen (Tylenol) 650 mg Q4H PRN ORAL fever 05/12/19 22:00 06/11/19 21:59 05/13/19 17:58 Albuterol/ Ipratropium (Albuterol/ Ipratropium) 3 ml Q4H PRN HHN Shortness of Breath 05/16/19 14:00 05/21/19 13:59 Cefepime HCl 1 gm/ Dextrose 55 ml @ 110 mls/hr Q24H IVPB 05/13/19 11:00 05/22/19 23:59 05/17/19 12:26 Heparin Sodium (Porcine) (Heparin 5000 units/ml) 5,000 units EVERY 12 HOURS SUBQ 05/13/19 09:00 06/12/19 08:59 05/17/19 09:26 Liothyronine Sodium (Cytomel) 5 mcg DAILY ORAL 05/15/19 09:00 06/14/19 08:59 05/17/19 09:21 Morphine Sulfate (Morphine Sulfate) 2 mg Q4H PRN IVP Moderate Pain (Pain Scale 4-6) 05/12/19 22:00 05/19/19 21:59 Ondansetron HCl (Zofran) 4 mg Q6H PRN IVP Nausea & Vomiting 05/12/19 22:00 06/11/19 21:59 Polyethylene Glycol (Miralax) 17 gm DAILYPRN PRN ORAL Constipation 05/12/19 22:00 06/11/19 21:59 Temazepam (Restoril) 15 mg HSPRN PRN ORAL Insomnia 05/12/19 22:00 05/19/19 21:59 Ladarius High MD May 17, 2019 19:30
--- NOTE | 2019-05-17 19:41 | NUR ---
HAND-OFF: Report given to GLORIA Nicholson. Patient's stable.
[2019-05-17 20:00] VITALS: BP_SYST 102; BP_SYST 126; BP_DIAS 62; BP_DIAS 76
--- NOTE | 2019-05-17 20:00 | NUR ---
NURSE NOTES: RECEIVED PATIENT LYING IN BED, AWAKE, ALERT/ORIENTED X3, VERBALLY RESPONSIVE/CHINESE SPEAKING, DENIES PAIN, NO SIGNS AND SYMPTOMS OF ACUTE CARDIO RESPIRATORY DISTRESS/SHORTNESS OF BREATH, NO PERIPHERAL EDEMA NOTED. ABDOMEN SOFT/NON DISTENDED/BOWEL SOUNDS AUDIBLE, CONTINENT OF BLADDER, NO COMPLAINTS OF PAINFUL URINATION, REINFORCED IMPORTANCE OF UTILIZING CALL LIGHT FOR ASSISTANCE. SIDE RAILS UP X3/BED IN LOWEST POSITION FOR SAFETY. BED ALARM ACTIVATED. NAD.
[2019-05-18] VITALS: BP 110/66
--- NOTE | 2019-05-18 02:33 | NUR ---
NURSE NOTES: RESTING WELL, NAD.
[2019-05-18 04:00] VITALS: BP 105/56
--- NOTE | 2019-05-18 06:36 | NUR ---
NURSE NOTES: RESTED WELL, NO SIGNIFICANT CHANGE OF CONDITION NOTED THROUGHOUT THE NIGHT. SAFETY MAINTAINED. NAD.
[2019-05-18 07:03] LABS: BASOPHILS % (AUTO) 0.9 % (0.0-2.0); EOSINOPHILS % (AUTO) 3.5 % (0.0-3.0); HEMOGLOBIN 8.7 G/DL (12.0-16.0); LYMPHOCYTES % (AUTO) 37.7 % (20.0-45.0); MEAN CORPUSCULAR VOLUME 93 FL (80-99); MONOCYTES % (AUTO) 8.6 % (1.0-10.0); NEUTROPHILS % (AUTO) 49.5 % (45.0-75.0); PLATELET COUNT 316 K/UL (150-450); RED CELL DISTRIBUTION WIDTH 12.6 % (11.6-14.8); WHITE BLOOD COUNT 3.7 K/UL (4.8-10.8)
[2019-05-18 07:22] LABS: ALANINE AMINOTRANSFERASE 27 U/L (12-78); ALBUMIN 2.4 G/DL (3.4-5.0); ALBUMIN/GLOBULIN RATIO 0.5 (1.0-2.7); ALKALINE PHOSPHATASE 87 U/L (46-116); ANION GAP 7 mmol/L (5-15); ASPARTATE AMINO TRANSFERASE 44 U/L (15-37); BILIRUBIN,TOTAL 0.2 MG/DL (0.2-1.0); BLOOD UREA NITROGEN 47 mg/dL (7-18); CARBON DIOXIDE 23 MMOL/L (21-32); CHLORIDE 109 MMOL/L (98-107); CREATININE 1.6 MG/DL (0.55-1.30); POTASSIUM 4.3 MMOL/L (3.5-5.1); SODIUM 139 MMOL/L (136-145)
--- NOTE | 2019-05-18 07:38 | NUR ---
HAND-OFF: Report given to mya perez.
[2019-05-18 08:00] VITALS: BP 116/60
--- NOTE | 2019-05-18 08:55 | General Progress Note ---
Assessment/Plan Problem List: (1) Anemia ICD Codes: D64.9 - Anemia, unspecified SNOMED: 234604129 (2) Renal failure (ARF), acute on chronic ICD Codes: N17.9 - Acute kidney failure, unspecified; N18.9 - Chronic kidney disease, unspecified SNOMED: 452718540 (3) UTI (urinary tract infection) ICD Codes: N39.0 - Urinary tract infection, site not specified SNOMED: 27572970 (4) Severe protein-calorie malnutrition ICD Codes: E43 - Unspecified severe protein-calorie malnutrition SNOMED: 371428396, 902304669, 385556876 Status: stable, progressing, unchanged Assessment/Plan: o2 pulm tx abx cbc bmp am dc w hh if clear Subjective Constitutional: Reports: weakness Allergies: Coded Allergies: No Known Allergies (Unverified , 10/02/15) All Systems: reviewed and negative except above Subjective sl anxious Objective Last 24 Hour Vital Signs Date Time Temp Pulse Resp B/P (MAP) Pulse Ox O2 Delivery O2 Flow Rate FiO2 05/18/19 04:00 98.1 65 18 105/56 (72) 05/18/19 00:00 98.6 79 18 110/66 (81) 97 05/17/19 21:03 69 19 98 Room Air 21 05/17/19 21:00 Room Air 05/17/19 20:00 98.2 74 18 102/62 (75) 97 05/17/19 16:00 98.0 75 16 102/60 (74) 96 05/17/19 12:00 98.5 66 18 100/51 (67) 95 05/17/19 09:00 Room Air Intake and Output 05/17/19 05/18/19 19:00 07:00 Intake Total 700 ml 300 ml Balance 700 ml 300 ml Intake Oral 700 ml 300 ml # Voids 6 4 Laboratory Tests 05/18/19 05:25: White Blood Count 3.7L, Red Blood Count 2.90L, Hemoglobin 8.7L, Hematocrit 27.0L , Mean Corpuscular Volume 93, Mean Corpuscular Hemoglobin 29.9, Mean Corpuscular Hemoglobin Concent 32.2, Red Cell Distribution Width 12.6, Platelet Count 316, Mean Platelet Volume 5.0L, Neutrophils (%) (Auto) 49.5, Lymphocytes ( %) (Auto) 37.7, Monocytes (%) (Auto) 8.6, Eosinophils (%) (Auto) 3.5H, Basophils (%) (Auto) 0.9, Sodium Level 139, Potassium Level 4.3, Chloride Level 109H, Carbon Dioxide Level 23, Anion Gap 7, Blood Urea Nitrogen 47H, Creatinine 1.6H, Estimat Glomerular Filtration Rate , Glucose Level 84, Calcium Level 9.0, Total Bilirubin 0.2, Aspartate Amino Transf (AST/SGOT) 44H, Alanine Aminotransferase (ALT/SGPT) 27, Alkaline Phosphatase 87, Total Protein 7.7, Albumin 2.4L, Globulin 5.3, Albumin/Globulin Ratio 0.5L Height (Feet): 5 Height (Inches): 1.00 Weight (Pounds): 95 General Appearance: lethargic EENT: normal ENT inspection Neck: normal alignment Cardiovascular: normal peripheral pulses, normal rate, regular rhythm Respiratory/Chest: chest wall non-tender, lungs clear, normal breath sounds Abdomen: normal bowel sounds, non tender, soft Extremities: normal inspection Edema: no edema noted Arm (L), no edema noted Arm (R), no edema noted Leg (L), no edema noted Leg (R), no edema noted Pedal (L), no edema noted Pedal (R), no edema noted Generalized Neurologic: responsive, motor weakness Skin: normal pigmentation, warm/dry Isaak Herrera DO May 18, 2019 08:55
[2019-05-18] MEDS: Liothyronine 5mcg tab ORAL SCH ×2 (09:00→09:13)
[2019-05-18] MEDS: Heparin 5000 units/ml inj SUBQ SCH (09:14)
--- NOTE | 2019-05-18 11:10 | NUR ---
NURSE NOTES: Patient is alert and oriented. NO reports of discomfort. IV is intact. Bed is locked and in lowest position. Will continue to monitor.
--- NOTE | 2019-05-18 11:24 | NUR ---
DISCHARGE PLANNING: NOTE CLINICALS FAXED AND EMAILED TO [facility] FOR REVIEW. Addendum: 05/18/19 at 1330 by Karuna Granados CM YISEL WOODS AT [facility] HE WILL ACCEPT THIS PATIENT AND FOLLOW UP
[2019-05-18] MEDS: Cefepime 1gm in D5W 55ml IVPB SCH (11:26)
--- NOTE | 2019-05-18 11:45 | GI Progress Note ---
Assessment/Plan Problems: (1) Severe protein-calorie malnutrition ICD Codes: E43 - Unspecified severe protein-calorie malnutrition SNOMED: 378713395, 630789398, 639543413 (2) Pneumonia ICD Codes: J18.9 - Pneumonia, unspecified organism SNOMED: 115997302 (3) Anemia ICD Codes: D64.9 - Anemia, unspecified SNOMED: 530365711 Status: unchanged Status Narrative Discussed with Dr. Skaggs. Assessment/Plan This is a 73-year-old female with acute UTI and possible multiple myeloma, obvious source for her anemia. outpatient GI procedures OB stool r/o GI bleed prn transfusions ppi abx follow labs The patient was seen and examined at bedside and all new and available data was reviewed in the patients chart. I agree with the above findings, impression and plan. (Patient seen earlier today. Signature stamp does not reflect patient encounter time.). - Kleber Skaggs MD Subjective Gastrointestinal/Abdominal: Reports: no symptoms Objective Last 24 Hour Vital Signs Date Time Temp Pulse Resp B/P (MAP) Pulse Ox O2 Delivery O2 Flow Rate FiO2 05/18/19 08:30 Room Air 05/18/19 08:00 97.6 67 18 116/60 (78) 100 05/18/19 04:00 98.1 65 18 105/56 (72) 05/18/19 00:00 98.6 79 18 110/66 (81) 97 05/17/19 21:03 69 19 98 Room Air 21 05/17/19 21:00 Room Air 05/17/19 20:00 98.2 74 18 102/62 (75) 97 05/17/19 16:00 98.0 75 16 102/60 (74) 96 05/17/19 12:00 98.5 66 18 100/51 (67) 95 Intake and Output 05/17/19 05/18/19 19:00 07:00 Intake Total 700 ml 300 ml Balance 700 ml 300 ml Intake Oral 700 ml 300 ml # Voids 6 4 Laboratory Tests Test 05/18/19 05:25 White Blood Count 3.7 K/UL (4.8-10.8) L Red Blood Count 2.90 M/UL (4.20-5.40) L Hemoglobin 8.7 G/DL (12.0-16.0) L Hematocrit 27.0 % (37.0-47.0) L Mean Corpuscular Volume 93 FL (80-99) Mean Corpuscular Hemoglobin 29.9 PG (27.0-31.0) Mean Corpuscular Hemoglobin Concent 32.2 G/DL (32.0-36.0) Red Cell Distribution Width 12.6 % (11.6-14.8) Platelet Count 316 K/UL (150-450) Mean Platelet Volume 5.0 FL (6.5-10.1) L Neutrophils (%) (Auto) 49.5 % (45.0-75.0) Lymphocytes (%) (Auto) 37.7 % (20.0-45.0) Monocytes (%) (Auto) 8.6 % (1.0-10.0) Eosinophils (%) (Auto) 3.5 % (0.0-3.0) H Basophils (%) (Auto) 0.9 % (0.0-2.0) Sodium Level 139 MMOL/L (136-145) Potassium Level 4.3 MMOL/L (3.5-5.1) Chloride Level 109 MMOL/L (98-107) H Carbon Dioxide Level 23 MMOL/L (21-32) Anion Gap 7 mmol/L (5-15) Blood Urea Nitrogen 47 mg/dL (7-18) H Creatinine 1.6 MG/DL (0.55-1.30) H Estimat Glomerular Filtration Rate mL/min (>60) Glucose Level 84 MG/DL (74-106) Calcium Level 9.0 MG/DL (8.5-10.1) Total Bilirubin 0.2 MG/DL (0.2-1.0) Aspartate Amino Transf (AST/SGOT) 44 U/L (15-37) H Alanine Aminotransferase (ALT/SGPT) 27 U/L (12-78) Alkaline Phosphatase 87 U/L (46-116) Total Protein 7.7 G/DL (6.4-8.2) Albumin 2.4 G/DL (3.4-5.0) L Globulin 5.3 g/dL Albumin/Globulin Ratio 0.5 (1.0-2.7) L Height (Feet): 5 Height (Inches): 1.00 Weight (Pounds): 95 General Appearance: no apparent distress Cardiovascular: normal rate Respiratory/Chest: normal breath sounds, no respiratory distress Abdominal Exam: normal bowel sounds, non tender, soft Extremities: non-tender Eunice Jolley NP May 18, 2019 11:45
[2019-05-18 12:00] VITALS: BP 120/80
--- NOTE | 2019-05-18 12:54 | Nephrology Progress Note ---
Assessment/Plan Problem List: (1) ROLANDO (acute kidney injury) Assessment: Cr lowering (2) Renal failure (ARF), acute on chronic (3) Anemia (4) Severe protein-calorie malnutrition Assessment (1) ROLANDO (acute kidney injury) (2) Renal failure (ARF), acute on chronic (3) Severe anemia (4) Protein calorie mal nutrition (5) UTI Others: h/o bronchitis h/o abdominal pain and nausea, possibly enteritis ( by CT scan) RA Plan Plan Avoid nephrotoxics monitor renal parameters ferritin and Iron panel checked DC planning? Subjective ROS Limited/Unobtainable: No Constitutional: Reports: malaise Objective Objective Last 24 Hour Vital Signs Date Time Temp Pulse Resp B/P (MAP) Pulse Ox O2 Delivery O2 Flow Rate FiO2 05/18/19 08:30 Room Air 05/18/19 08:00 97.6 67 18 116/60 (78) 100 05/18/19 04:00 98.1 65 18 105/56 (72) 05/18/19 00:00 98.6 79 18 110/66 (81) 97 05/17/19 21:03 69 19 98 Room Air 21 05/17/19 21:00 Room Air 05/17/19 20:00 98.2 74 18 102/62 (75) 97 05/17/19 16:00 98.0 75 16 102/60 (74) 96 Intake and Output 05/17/19 05/18/19 19:00 07:00 Intake Total 700 ml 300 ml Balance 700 ml 300 ml Intake Oral 700 ml 300 ml # Voids 6 4 Laboratory Tests 05/18/19 05:25: White Blood Count 3.7L, Red Blood Count 2.90L, Hemoglobin 8.7L, Hematocrit 27.0L , Mean Corpuscular Volume 93, Mean Corpuscular Hemoglobin 29.9, Mean Corpuscular Hemoglobin Concent 32.2, Red Cell Distribution Width 12.6, Platelet Count 316, Mean Platelet Volume 5.0L, Neutrophils (%) (Auto) 49.5, Lymphocytes ( %) (Auto) 37.7, Monocytes (%) (Auto) 8.6, Eosinophils (%) (Auto) 3.5H, Basophils (%) (Auto) 0.9, Sodium Level 139, Potassium Level 4.3, Chloride Level 109H, Carbon Dioxide Level 23, Anion Gap 7, Blood Urea Nitrogen 47H, Creatinine 1.6H, Estimat Glomerular Filtration Rate , Glucose Level 84, Calcium Level 9.0, Total Bilirubin 0.2, Aspartate Amino Transf (AST/SGOT) 44H, Alanine Aminotransferase (ALT/SGPT) 27, Alkaline Phosphatase 87, Total Protein 7.7, Albumin 2.4L, Globulin 5.3, Albumin/Globulin Ratio 0.5L Height (Feet): 5 Height (Inches): 1.00 Weight (Pounds): 95 General Appearance: no apparent distress Objective no change Isma Unger MD May 18, 2019 12:54
--- NOTE | 2019-05-18 13:37 | Hematology/Onc Progress Note ---
Assessment/Plan Assessment/Plan ASSESSMENT/Recs # Monoclonal gammopathy noted on both IGG >3000, and immunofixation of the serum , concerning for multiple myeloma. with LEUKOPENIA, decreased white blood cell count, (leukopenia) - wbc under 4k, could also be related to infection v multiple myeloma --> continue antibiotics with ID service, appreciate recs --> medications have been reviewed --> hepatitis and hiv in past negative --> imaging of abdomen reviewed --> Prior igg was 3961-->2453 and spep was abnormal concerning for myeloma --> immunofixation of prior visit ++ for monoclonal proteinwith lambda light chain specificity --> may at some point consider bone marrow biopsy (WILL NOT SEND CYTOGENETICS) just simple biopsy # Anemia of chronic disease due to underlying chronic medical issues, multifactorial --> Anemia workup has been ordered from [facility], and reviewed, ferritin is >100 --> No evidence of hemolysis is noted, peripheral smear has been reviewed --> Hgb goal >7. Transfuse prn. --> Epogen or iron at this time is not particularly indicated --> Medications have been reviewed --> egd/colo per gi on prn basis # Abdominal pain, hx enteritis, a antibiotics per Infectious Disease. --> on abx cefepime --> O2 and pulmonary treatment. # Headache, chronic # Recent tristan # Dvt ppx heparin sq The timing of this note does not necessarily reflect the time of the patient was seen. Greatly appreciate consultation! Subjective Constitutional: Denies: no symptoms, chills, fever, malaise, weakness, other HEENT: Denies: no symptoms, eye pain, blurred vision, tearing, double vision, ear pain, ear discharge, nose pain, nose congestion, throat pain, throat swelling, mouth pain, mouth swelling, other Cardiovascular: Denies: no symptoms, chest pain, edema, irregular heart rate, lightheadedness, palpitations, syncope, other Respiratory: Denies: no symptoms, cough, shortness of breath, SOB with excertion, SOB at rest, sputum, wheezing, other Gastrointestinal/Abdominal: Denies: no symptoms, abdomen distended, abdominal pain, black stools, tarry stools, blood in stool, constipated, diarrhea, difficulty swallowing, nausea, poor appetite, poor fluid intake, rectal bleeding , vomiting, other Genitourinary: Denies: no symptoms, burning, discharge, frequency, flank pain, hematuria, incontinence, pain, urgency, other Endocrine: Denies: no symptoms, excessive sweating, flushing, intolerance to cold, intolerance to heat, increased hunger, increased thirst, increased urine, unexplained weight gain, unexplained weight loss, other Allergies: Coded Allergies: No Known Allergies (Unverified , 10/02/15) Subjective 05/15: no bleeding, no chills, seen with pcp, labs reviewed, seen by gi 05/16: no events, no changes, no bleeding, reviewed labs and no f/c 05/18: no bleeding or chills, no f/c, anemia panel reviewed Objective Objective Current Medications Medications (Trade) Dose Ordered Sig/Floyd Route PRN Reason Start Time Stop Time Status Last Admin Dose Admin Acetaminophen (Tylenol) 650 mg Q4H PRN ORAL fever 05/12/19 22:00 06/11/19 21:59 05/13/19 17:58 Albuterol/ Ipratropium (Albuterol/ Ipratropium) 3 ml Q4H PRN HHN Shortness of Breath 05/16/19 14:00 05/21/19 13:59 Cefepime HCl 1 gm/ Dextrose 55 ml @ 110 mls/hr Q24H IVPB 05/13/19 11:00 05/22/19 23:59 05/18/19 11:26 Heparin Sodium (Porcine) (Heparin 5000 units/ml) 5,000 units EVERY 12 HOURS SUBQ 05/13/19 09:00 06/12/19 08:59 05/18/19 09:14 Liothyronine Sodium (Cytomel) 5 mcg DAILY ORAL 05/15/19 09:00 06/14/19 08:59 05/17/19 09:21 Morphine Sulfate (Morphine Sulfate) 2 mg Q4H PRN IVP Moderate Pain (Pain Scale 4-6) 05/12/19 22:00 05/19/19 21:59 Ondansetron HCl (Zofran) 4 mg Q6H PRN IVP Nausea & Vomiting 05/12/19 22:00 06/11/19 21:59 Polyethylene Glycol (Miralax) 17 gm DAILYPRN PRN ORAL Constipation 05/12/19 22:00 06/11/19 21:59 Temazepam (Restoril) 15 mg HSPRN PRN ORAL Insomnia 05/12/19 22:00 05/19/19 21:59 Last 24 Hour Vital Signs Date Time Temp Pulse Resp B/P (MAP) Pulse Ox O2 Delivery O2 Flow Rate FiO2 05/18/19 12:00 97.7 70 18 120/80 (93) 100 05/18/19 08:30 Room Air 05/18/19 08:00 97.6 67 18 116/60 (78) 100 05/18/19 04:00 98.1 65 18 105/56 (72) 05/18/19 00:00 98.6 79 18 110/66 (81) 97 05/17/19 21:03 69 19 98 Room Air 21 05/17/19 21:00 Room Air 05/17/19 20:00 98.2 74 18 102/62 (75) 97 05/17/19 16:00 98.0 75 16 102/60 (74) 96 05/17/19 12:00 98.5 66 18 100/51 (67) 95 05/17/19 09:00 Room Air 05/17/19 08:00 98.7 86 18 95/55 (68) 96 05/17/19 07:31 70 18 97 Room Air 21 05/17/19 04:00 97.6 62 18 109/47 (67) 98 05/17/19 00:00 98.0 70 18 115/70 (85) 98 05/16/19 21:24 77 18 98 Room Air 21 05/16/19 21:00 Room Air 05/16/19 20:00 98.2 72 19 121/78 (92) 95 05/16/19 16:00 98.1 67 18 111/61 (78) 99 Intake and Output 05/17/19 05/18/19 19:00 07:00 Intake Total 700 ml 300 ml Balance 700 ml 300 ml Intake Oral 700 ml 300 ml # Voids 6 4 Labs Test 05/16/19 06:19 05/17/19 05:50 05/18/19 05:25 White Blood Count 4.1 K/UL (4.8-10.8) 4.0 K/UL (4.8-10.8) 3.7 K/UL (4.8-10.8) Red Blood Count 2.70 M/UL (4.20-5.40) 2.63 M/UL (4.20-5.40) 2.90 M/UL (4.20-5.40) Hemoglobin 8.3 G/DL (12.0-16.0) 8.0 G/DL (12.0-16.0) 8.7 G/DL (12.0-16.0) Hematocrit 25.2 % (37.0-47.0) 24.5 % (37.0-47.0) 27.0 % (37.0-47.0) Mean Corpuscular Volume 93 FL (80-99) 93 FL (80-99) 93 FL (80-99) Mean Corpuscular Hemoglobin 30.7 PG (27.0-31.0) 30.5 PG (27.0-31.0) 29.9 PG (27.0-31.0) Mean Corpuscular Hemoglobin Concent 33.0 G/DL (32.0-36.0) 32.7 G/DL (32.0-36.0) 32.2 G/DL (32.0-36.0) Red Cell Distribution Width 12.7 % (11.6-14.8) 12.4 % (11.6-14.8) 12.6 % (11.6-14.8) Platelet Count 283 K/UL (150-450) 307 K/UL (150-450) 316 K/UL (150-450) Mean Platelet Volume 4.9 FL (6.5-10.1) 4.8 FL (6.5-10.1) 5.0 FL (6.5-10.1) Neutrophils (%) (Auto) 57.1 % (45.0-75.0) 55.1 % (45.0-75.0) 49.5 % (45.0-75.0) Lymphocytes (%) (Auto) 29.5 % (20.0-45.0) 29.3 % (20.0-45.0) 37.7 % (20.0-45.0) Monocytes (%) (Auto) 10.2 % (1.0-10.0) 10.8 % (1.0-10.0) 8.6 % (1.0-10.0) Eosinophils (%) (Auto) 2.4 % (0.0-3.0) 3.6 % (0.0-3.0) 3.5 % (0.0-3.0) Basophils (%) (Auto) 0.8 % (0.0-2.0) 1.3 % (0.0-2.0) 0.9 % (0.0-2.0) Sodium Level 140 MMOL/L (136-145) 141 MMOL/L (136-145) 139 MMOL/L (136-145) Potassium Level 4.3 MMOL/L (3.5-5.1) 4.5 MMOL/L (3.5-5.1) 4.3 MMOL/L (3.5-5.1) Chloride Level 110 MMOL/L (98-107) 109 MMOL/L (98-107) 109 MMOL/L (98-107) Carbon Dioxide Level 21 MMOL/L (21-32) 23 MMOL/L (21-32) 23 MMOL/L (21-32) Anion Gap 9 mmol/L (5-15) 9 mmol/L (5-15) 7 mmol/L (5-15) Blood Urea Nitrogen 32 mg/dL (7-18) 41 mg/dL (7-18) 47 mg/dL (7-18) Creatinine 1.7 MG/DL (0.55-1.30) 1.6 MG/DL (0.55-1.30) 1.6 MG/DL (0.55-1.30) Estimat Glomerular Filtration Rate mL/min (>60) mL/min (>60) mL/min (>60) Glucose Level 84 MG/DL (74-106) 82 MG/DL (74-106) 84 MG/DL (74-106) Calcium Level 8.8 MG/DL (8.5-10.1) 8.7 MG/DL (8.5-10.1) 9.0 MG/DL (8.5-10.1) Total Bilirubin 0.2 MG/DL (0.2-1.0) Aspartate Amino Transf (AST/SGOT) 44 U/L (15-37) Alanine Aminotransferase (ALT/SGPT) 27 U/L (12-78) Alkaline Phosphatase 87 U/L (46-116) Total Protein 7.7 G/DL (6.4-8.2) Albumin 2.4 G/DL (3.4-5.0) Globulin 5.3 g/dL Albumin/Globulin Ratio 0.5 (1.0-2.7) Height (Feet): 5 Height (Inches): 1.00 Weight (Pounds): 95 Objective PHYSICAL EXAMINATION: GENERAL: Calm in bed, oriented x3, slight short of breath. VITAL SIGNS: reviewed CARDIOVASCULAR: No murmur. LUNGS: Poor air exchange. ABDOMEN: Bowel sounds distant. EXTREMITIES: No cyanosis or edema. NEUROLOGIC: The patient moves all extremities, slightly weak. Emiliano Mccray MD May 18, 2019 13:37
--- NOTE | 2019-05-18 14:21 | Pulmonology Progress Note ---
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 better respiratory treatment renal studies symptomatic treatment dc planning Subjective ROS Limited/Unobtainable: No Constitutional: Reports: no symptoms HEENT: Repors: no symptoms Respiratory: Reports: no symptoms Allergies: Coded Allergies: No Known Allergies (Unverified , 10/02/15) Objective Last 24 Hour Vital Signs Date Time Temp Pulse Resp B/P (MAP) Pulse Ox O2 Delivery O2 Flow Rate FiO2 05/18/19 12:00 97.7 70 18 120/80 (93) 100 05/18/19 08:30 Room Air 05/18/19 08:00 97.6 67 18 116/60 (78) 100 05/18/19 04:00 98.1 65 18 105/56 (72) 05/18/19 00:00 98.6 79 18 110/66 (81) 97 05/17/19 21:03 69 19 98 Room Air 21 05/17/19 21:00 Room Air 05/17/19 20:00 98.2 74 18 102/62 (75) 97 05/17/19 16:00 98.0 75 16 102/60 (74) 96 Intake and Output 05/17/19 05/18/19 19:00 07:00 Intake Total 700 ml 300 ml Balance 700 ml 300 ml Intake Oral 700 ml 300 ml # Voids 6 4 General Appearance: WD/WN HEENT: normocephalic, atraumatic Respiratory/Chest: chest wall non-tender, lungs clear Breasts: no masses Cardiovascular: normal peripheral pulses, regular rhythm Abdomen: normal bowel sounds, soft, non tender Extremities: no cyanosis Skin: no rash, no lesions Neurologic/Psychiatric: director of patient financial services II-XII grossly normal Laboratory Tests 05/18/19 05:25: White Blood Count 3.7L, Red Blood Count 2.90L, Hemoglobin 8.7L, Hematocrit 27.0L , Mean Corpuscular Volume 93, Mean Corpuscular Hemoglobin 29.9, Mean Corpuscular Hemoglobin Concent 32.2, Red Cell Distribution Width 12.6, Platelet Count 316, Mean Platelet Volume 5.0L, Neutrophils (%) (Auto) 49.5, Lymphocytes ( %) (Auto) 37.7, Monocytes (%) (Auto) 8.6, Eosinophils (%) (Auto) 3.5H, Basophils (%) (Auto) 0.9, Sodium Level 139, Potassium Level 4.3, Chloride Level 109H, Carbon Dioxide Level 23, Anion Gap 7, Blood Urea Nitrogen 47H, Creatinine 1.6H, Estimat Glomerular Filtration Rate , Glucose Level 84, Calcium Level 9.0, Total Bilirubin 0.2, Aspartate Amino Transf (AST/SGOT) 44H, Alanine Aminotransferase (ALT/SGPT) 27, Alkaline Phosphatase 87, Total Protein 7.7, Albumin 2.4L, Globulin 5.3, Albumin/Globulin Ratio 0.5L Current Medications Medications (Trade) Dose Ordered Sig/Floyd Route PRN Reason Start Time Stop Time Status Last Admin Dose Admin Acetaminophen (Tylenol) 650 mg Q4H PRN ORAL fever 05/12/19 22:00 06/11/19 21:59 05/13/19 17:58 Albuterol/ Ipratropium (Albuterol/ Ipratropium) 3 ml Q4H PRN HHN Shortness of Breath 05/16/19 14:00 05/21/19 13:59 Cefepime HCl 1 gm/ Dextrose 55 ml @ 110 mls/hr Q24H IVPB 05/13/19 11:00 05/22/19 23:59 05/18/19 11:26 Heparin Sodium (Porcine) (Heparin 5000 units/ml) 5,000 units EVERY 12 HOURS SUBQ 05/13/19 09:00 06/12/19 08:59 05/18/19 09:14 Liothyronine Sodium (Cytomel) 5 mcg DAILY ORAL 05/15/19 09:00 06/14/19 08:59 05/17/19 09:21 Morphine Sulfate (Morphine Sulfate) 2 mg Q4H PRN IVP Moderate Pain (Pain Scale 4-6) 05/12/19 22:00 05/19/19 21:59 Ondansetron HCl (Zofran) 4 mg Q6H PRN IVP Nausea & Vomiting 05/12/19 22:00 06/11/19 21:59 Polyethylene Glycol (Miralax) 17 gm DAILYPRN PRN ORAL Constipation 05/12/19 22:00 06/11/19 21:59 Temazepam (Restoril) 15 mg HSPRN PRN ORAL Insomnia 05/12/19 22:00 05/19/19 21:59 Stephan Perez MD May 18, 2019 14:21
--- NOTE | 2019-05-18 14:32 | Infectious Diseases Prog Note ---
Assessment/Plan Assessment/Plan A: The patient is a 73-year-old female with: nl WBC >> Leukopenia Afebrile UTIs / Pyelonephritis UCx : [address] of the abdomen on 05/01/2019 showed no evidence of hydronephrosis Pyuria History of pulmonary MAC. Anemia ? MM fup by Hem/onc Rheumatoid arthritis. PLAN: continue the patient is on cefepime day # 6/ , upon DC will change to Keflex x 4 d 05/13 Sp IV vancomycin day #1 monitor CBC Monitor BMP. Monitor cultures (blood, ) Subjective Allergies: Coded Allergies: No Known Allergies (Unverified , 10/02/15) Subjective Afebrile Objective Vital Signs Last 24 Hour Vital Signs Date Time Temp Pulse Resp B/P (MAP) Pulse Ox O2 Delivery O2 Flow Rate FiO2 05/18/19 12:00 97.7 70 18 120/80 (93) 100 05/18/19 08:30 Room Air 05/18/19 08:00 97.6 67 18 116/60 (78) 100 05/18/19 04:00 98.1 65 18 105/56 (72) 05/18/19 00:00 98.6 79 18 110/66 (81) 97 05/17/19 21:03 69 19 98 Room Air 21 05/17/19 21:00 Room Air 05/17/19 20:00 98.2 74 18 102/62 (75) 97 05/17/19 16:00 98.0 75 16 102/60 (74) 96 Height (Feet): 5 Height (Inches): 1.00 Weight (Pounds): 95 HEENT: anicteric Respiratory/Chest: normal breath sounds Cardiovascular: regular rhythm Abdomen: soft, non tender Laboratory Tests Test 05/18/19 05:25 White Blood Count 3.7 K/UL (4.8-10.8) L Red Blood Count 2.90 M/UL (4.20-5.40) L Hemoglobin 8.7 G/DL (12.0-16.0) L Hematocrit 27.0 % (37.0-47.0) L Mean Corpuscular Volume 93 FL (80-99) Mean Corpuscular Hemoglobin 29.9 PG (27.0-31.0) Mean Corpuscular Hemoglobin Concent 32.2 G/DL (32.0-36.0) Red Cell Distribution Width 12.6 % (11.6-14.8) Platelet Count 316 K/UL (150-450) Mean Platelet Volume 5.0 FL (6.5-10.1) L Neutrophils (%) (Auto) 49.5 % (45.0-75.0) Lymphocytes (%) (Auto) 37.7 % (20.0-45.0) Monocytes (%) (Auto) 8.6 % (1.0-10.0) Eosinophils (%) (Auto) 3.5 % (0.0-3.0) H Basophils (%) (Auto) 0.9 % (0.0-2.0) Sodium Level 139 MMOL/L (136-145) Potassium Level 4.3 MMOL/L (3.5-5.1) Chloride Level 109 MMOL/L (98-107) H Carbon Dioxide Level 23 MMOL/L (21-32) Anion Gap 7 mmol/L (5-15) Blood Urea Nitrogen 47 mg/dL (7-18) H Creatinine 1.6 MG/DL (0.55-1.30) H Estimat Glomerular Filtration Rate mL/min (>60) Glucose Level 84 MG/DL (74-106) Calcium Level 9.0 MG/DL (8.5-10.1) Total Bilirubin 0.2 MG/DL (0.2-1.0) Aspartate Amino Transf (AST/SGOT) 44 U/L (15-37) H Alanine Aminotransferase (ALT/SGPT) 27 U/L (12-78) Alkaline Phosphatase 87 U/L (46-116) Total Protein 7.7 G/DL (6.4-8.2) Albumin 2.4 G/DL (3.4-5.0) L Globulin 5.3 g/dL Albumin/Globulin Ratio 0.5 (1.0-2.7) L Current Medications Medications (Trade) Dose Ordered Sig/Floyd Route PRN Reason Start Time Stop Time Status Last Admin Dose Admin Acetaminophen (Tylenol) 650 mg Q4H PRN ORAL fever 05/12/19 22:00 06/11/19 21:59 05/13/19 17:58 Albuterol/ Ipratropium (Albuterol/ Ipratropium) 3 ml Q4H PRN HHN Shortness of Breath 05/16/19 14:00 05/21/19 13:59 Cefepime HCl 1 gm/ Dextrose 55 ml @ 110 mls/hr Q24H IVPB 05/13/19 11:00 05/22/19 23:59 05/18/19 11:26 Heparin Sodium (Porcine) (Heparin 5000 units/ml) 5,000 units EVERY 12 HOURS SUBQ 05/13/19 09:00 06/12/19 08:59 05/18/19 09:14 Liothyronine Sodium (Cytomel) 5 mcg DAILY ORAL 05/15/19 09:00 06/14/19 08:59 05/17/19 09:21 Morphine Sulfate (Morphine Sulfate) 2 mg Q4H PRN IVP Moderate Pain (Pain Scale 4-6) 05/12/19 22:00 05/19/19 21:59 Ondansetron HCl (Zofran) 4 mg Q6H PRN IVP Nausea & Vomiting 05/12/19 22:00 06/11/19 21:59 Polyethylene Glycol (Miralax) 17 gm DAILYPRN PRN ORAL Constipation 05/12/19 22:00 06/11/19 21:59 Temazepam (Restoril) 15 mg HSPRN PRN ORAL Insomnia 05/12/19 22:00 05/19/19 21:59 Ladarius High MD May 18, 2019 14:32
--- NOTE | 2019-05-18 15:24 | NUR ---
NURSE NOTES: Patient discharged Home with Home Health via private vehicle. Patient picked up by daughter. Discharge instructions given to daughter. Belongings checked with patient. IV removed. ID bracelet removed. Patient stable upon discharge.
--- NOTE | 2019-05-19 11:47 | Discharge Summary ---
Discharge Summary Discharge Summary _ DATE OF ADMISSION: 05/12/2019 DATE OF DISCHARGE: 05/18/2019 DISCHARGED BY: Dr. Herrera REASON FOR ADMISSION: 73 years old female , with past medical history of rheumatoid arthritis, chronic kidney disease, history of Mycobacterium avium complex, presented complaining of right-sided flank pain and generalized weakness. Symptoms started two days ago. Patient was recently hospitalized for failure to thrive , anemia and acute on chronic kidney injury. Patient reported chills and subjective fevers along with right-sided flank pain , radiating down her right groin. She noted some dysuria , but denied hematuria . No nausea or vomiting. No chest pain or shortness of breath. Upon evaluation patient had low-grade fever , otherwise vital signs were stable. Urinalysis revealed +2 protein , +5 blood , pyuria , and occasional bacteria. No leukocytosis, hemoglobin 9.5 , hematocrit 28.5, platelet count 303. Potassium 5.4. BUN 52, creatinine 2.1. Glucose 102. Stable LFT. EKG revealed sinus rhythm , no acute ischemic changes. Patient started on the IV fluids, treated for hyperkalemia , started on empiric antibiotic and admitted for acute kidney injury and hyperkalemia. CONSULTANTS: hospitalist Dr. Perez ID specialist Dr. High GI specialist Dr. Skaggs metal milling machine operator Dr. Unger soaking pits supervisor/oncologist Dr. Mccray HOSPITAL COURSE: Patient admitted to medical surgical floor. Patient started on the IV fluids and empiric antibiotic. Renal parameters and electrolytes were closely monitored. Electrolytes corrected as needed , and nephrotoxins were avoided. BUN and creatinine w ere trending down. Sales Officer followed. Prior to discharge BUN from 52 down to 47 , and creatinine from 2.1 down to 1.6. Supplemental oxygen provided as needed to keep pulse oximetry above 92%. Bronchodilator treatment provided as needed. DVT prophylaxis provided. Patient complained of dysuria . Antibiotic provided as per ID specialist recommendation. Blood cultures were negative. Urine culture revealed gram-negative rods . Hemoglobin and hematocrit were closely monitored with goal to keep hemoglobin above 7. Anemia work-up was consistent with anemia of chronic disease. GI prophylaxis provided. GI recommended outpatient GI procedure. Oncologist followed. Oncologist recommended to consider bone marrow biopsy to rule out multiple myeloma at some point. Pain management was addressed. Nutritional recommendation regarding protein supplement implemented in plan of care. Pain management was addressed. Supportive care provided. Patient clinically stabilized and was ready for discharge home with home health services to follow . IV antibiotic changed to oral for additional 4 days to complete the course as per ID specialist recommendations. FINAL DIAGNOSES: Acute on chronic renal failure Dysuria, probably UTI COPD/emphysema Severe protein calorie malnutrition Anemia Rheumatoid arthritis Monoclonal gammopathy, rule out multiple myeloma DISCHARGE MEDICATIONS: See Medication Reconciliation list. DISCHARGE INSTRUCTIONS: Patient was discharged home with home health services. Follow up with primary care provider in one week. I have been assigned to dictate discharge summary for this account. I was not involved in the patient's management. Nora Hinojosa NP May 19, 2019 11:47
== END 2019-05-18 15:20 | disposition home health service (06) | DRG 682 ==
LOC: EMR 19:11 → 4E 20:58 → EDBEDREQ 21:23
DX: N17.9 Acute kidney failure, unspecified (principal); E43 Unspecified severe protein-calorie malnutrition; Z68.1 Body mass index [BMI] 19.9 or less, adult; C90.00 Multiple myeloma not having achieved remission; N39.0 Urinary tract infection, site not specified; D47.2 Monoclonal gammopathy; N12 Tubulo-interstitial nephritis, not specified as acute or chronic; J43.9 Emphysema, unspecified; R51 Headache; D63.8 Anemia in other chronic diseases classified elsewhere; M06.9 Rheumatoid arthritis, unspecified; N18.9 Chronic kidney disease, unspecified; J44.9 Chronic obstructive pulmonary disease, unspecified; M81.8 Other osteoporosis without current pathological fracture
CPT/HCPCS: 36415; 80048; 80053; 80061; 81003; 82607; 82728; 82746; 82977; 83540; 83550; 83735; 83880; 84100; 84439; 84443; 84481; 84550; 85007; 85025; 86140; 87040; 87081; 87086; 93005; 94664; 96361; 96365; 96368; 99285

== ENCOUNTER 2019-07-08 11:20 | Emergency (ER) | payer MEDICARE, OTHER ==
[~2019-07-08] VITALS: Ht 157.5 cm; Wt 42.2 kg
[~2019-07-08 11:20] MED LIST changes: +CALCIUM + VITA1 EAC1 PO; +CENTRUM SILVER1 EAC6 PO
[2019-07-08 11:38] VITALS: BP 115/68
--- NOTE | 2019-07-08 11:39 | NUR ---
ED Nurse Note:pt. came from home with c/o right flank pain since yesterday ,no urinary symptoms reported, no fever on arrival, pt. is ambulatory, A/Ox4
[2019-07-08 12:34] LABS: APPEARANCE,URINE CLEAR; BILIRUBIN, URINE NEGATIVE (NEGATIVE); COLOR,URINE PALE YELLOW; GLUCOSE, URINE (UA) NEGATIVE (NEGATIVE); KETONES,URINE NEGATIVE (NEGATIVE); LEUKOCYTE ESTERASE ,URINE 1+ (NEGATIVE); NITRITE,URINE NEGATIVE (NEGATIVE); PH,URINE 6.5 (4.5-8.0); PROTEIN,URINE 3+ (NEGATIVE); UROBILINOGEN,URINE NORMAL MG/DL (0.0-1.0)
--- NOTE | 2019-07-08 12:52 | Emergency Room Report ---
History of Present Illness General Chief Complaint: Pain Source: Patient Present Illness HPI 74-year-old female who is presenting of 3 days of right flank pain. Patient has a history of acute kidney injury and chronic infections. Patient states that her pain is sharp in nature nonradiating. Patient has no fever, no dysuria , no nausea, no vomiting, no diarrhea, no constipation, no rectal bleeding, hematuria. Patient has not tried any medications for pain control. Allergies: Coded Allergies: No Known Allergies (Unverified , 10/02/15) Nursing Documentation-[facility] Past Medical History: No History, Except For Hx Cardiac Problems: No Hx Cancer: No Hx Gastrointestinal Problems: Yes - ABD pain, pyleonephritis Hx Neurological Problems: Yes - OSTEOPOROSIS LOWER BACK, RA Hx Headaches: Yes Review of Systems Constitutional: Denies: chills, fever Respiratory: Denies: cough, shortness of breath Cardiovascular: Denies: chest pain, palpitations Gastrointestinal: Reports: abdominal pain; Denies: diarrhea, vomiting Genitourinary: Denies: hematuria, pain Musculoskeletal: Denies: joint swelling Skin: Denies: rash, lesions Neurological: Denies: headache, dizziness Physical Exam Vital Signs Date Time Temp Pulse Resp B/P (MAP) Pulse Ox O2 Delivery O2 Flow Rate FiO2 07/08/19 11:24 98.4 78 20 115/68 (84) 95 Room Air Sp02 EP Interpretation: reviewed General Appearance: well appearing, no apparent distress, non-toxic Head: normocephalic, atraumatic Eyes: bilateral eye normal inspection ENT: hearing grossly normal, moist mucus membranes Neck: supple Respiratory: lungs clear, normal breath sounds, no respiratory distress, speaking full sentences Cardiovascular #1: regular rate, rhythm, normal capillary refill Cardiovascular #2: 2+ radial (R), 2+ radial (L) Gastrointestinal: non tender, soft, non-distended, no guarding, no hernia, no pulsatile mass Rectal: deferred Genitourinary: CVA tenderness (R) Musculoskeletal: non-tender, no calf tenderness Neurologic: grossly normal Psychiatric: mood/affect normal Skin: warm/dry, normal turgor Medical Decision Making Diagnostic Impression: Primary Impression: CKD (chronic kidney disease) Additional Impression: Flank pain ER Course 74-year-old female 3 days of right flank pain found to have mild right CVA tenderness. Differential includes kidney infection, UTI, diverticulosis, diverticulitis, intra-abdominal infection, appendicitis. Will perform lab testing, and CT scan to evaluate for above differentials. Laboratory Tests Test 07/08/19 12:00 07/08/19 12:39 Urine Color Pale yellow Urine Appearance Clear Urine pH 6.5 (4.5-8.0) Urine Specific [place] 1.005 (1.005-1.035) Urine Protein 3+ (NEGATIVE) H Urine Glucose (UA) Negative (NEGATIVE) Urine Ketones Negative (NEGATIVE) Urine Blood 5+ (NEGATIVE) H Urine Nitrite Negative (NEGATIVE) Urine Bilirubin Negative (NEGATIVE) Urine Urobilinogen Normal MG/DL (0.0-1.0) Urine Leukocyte Esterase 1+ (NEGATIVE) H Urine RBC 15-20 /HPF (0 - 2) H Urine WBC 5-10 /HPF (0 - 2) H Urine Squamous Epithelial Cells Occasional /LPF Urine Bacteria Few /HPF (NONE) White Blood Count 5.7 K/UL (4.8-10.8) Red Blood Count 3.13 M/UL (4.20-5.40) L Hemoglobin 9.6 G/DL (12.0-16.0) L Hematocrit 29.1 % (37.0-47.0) L Mean Corpuscular Volume 93 FL (80-99) Mean Corpuscular Hemoglobin 30.6 PG (27.0-31.0) Mean Corpuscular Hemoglobin Concent 32.9 G/DL (32.0-36.0) Red Cell Distribution Width 12.0 % (11.6-14.8) Platelet Count 328 K/UL (150-450) Mean Platelet Volume 5.2 FL (6.5-10.1) L Neutrophils (%) (Auto) 80.3 % (45.0-75.0) H Lymphocytes (%) (Auto) 9.5 % (20.0-45.0) L Monocytes (%) (Auto) 8.9 % (1.0-10.0) Eosinophils (%) (Auto) 0.5 % (0.0-3.0) Basophils (%) (Auto) 0.9 % (0.0-2.0) Sodium Level 136 MMOL/L (136-145) Potassium Level 5.8 MMOL/L (3.5-5.1) H Chloride Level 105 MMOL/L (98-107) Carbon Dioxide Level 24 MMOL/L (21-32) Anion Gap 7 mmol/L (5-15) Blood Urea Nitrogen 48 mg/dL (7-18) H Creatinine 2.0 MG/DL (0.55-1.30) H Estimate Glomerular Filtration Rate mL/min (>60) Glucose Level 108 MG/DL (74-106) H Calcium Level 8.4 MG/DL (8.5-10.1) L Total Bilirubin 0.3 MG/DL (0.2-1.0) Aspartate Amino Transferase (AST) 21 U/L (15-37) Alanine Aminotransferase (ALT) 15 U/L (12-78) Alkaline Phosphatase 76 U/L (46-116) Total Protein 8.5 G/DL (6.4-8.2) H Albumin 2.7 G/DL (3.4-5.0) L Globulin 5.8 g/dL Albumin/Globulin Ratio 0.5 (1.0-2.7) L Lipase 327 U/L (73-393) Lab Results Impression ROLANDO, mild hyperkalemia, CT/MRI/US Diagnostic Results CT/MRI/US Diagnostic Results : Impression Procedure: CT Abdomen Pelvis WO Contrast Indication: Abdominal pain, right flank pain for 3 days Comparison: 05/01/2019 Findings: No renal or ureteral calculi are demonstrated. This the ureters are mildly ectatic bilaterally, but there is no hydronephrosis. Lack of IV contrast limits assessment of the renal parenchyma. There is a 1 cm cyst in the periphery of the interpolar region of the right kidney. No focal renal abnormality seen on the left. The bladder is unremarkable. Lack of IV contrast limits assessment of the other solid organs. The liver demonstrates a calcification in the right lobe and a subcapsular calcification in the left lobe. The gallbladder and bile ducts are unremarkable. There is mild ectasia of the pancreatic duct. The pancreas is otherwise unremarkable. The spleen and adrenals are unremarkable. No retroperitoneal or mesenteric mass or adenopathy. Retroperitoneal nodes are abundant but not enlarged. The appendix is only questionably visualized, but no findings to suggest acute appendicitis are evident. No evidence of colonic diverticulosis or diverticulitis. No small bowel distention. No free or loculated intraperitoneal gas or fluid is evident. The distal esophagus, stomach, duodenum are unremarkable. The included lung bases demonstrate extensive cystic changes, interstitial septal thickening, bronchial wall thickening, bronchiectasis, and nonspecific groundglass opacities. Appearance is similar to the previous study. The bones are unremarkable. Impression: Negative for evidence of obstructive uropathy or urinary stone disease No acute abnormality elsewhere Extensive basilar pulmonary parenchymal abnormality, as described. Similarity to previous exam suggests that there is a significant chronic component to this. Correlate with clinical history Mild ectasia of the pancreatic duct, unchanged from previous study of 05/01/2019 and of doubtful significance Other findings as noted, including small right renal cyst, hepatic calcifications Last Vital Signs Date Time Temp Pulse Resp B/P (MAP) Pulse Ox O2 Delivery O2 Flow Rate FiO2 07/08/19 11:38 98.4 78 20 115/68 95 Room Air Disposition: HOME, SELF-CARE Condition: Stable Referrals: Vicente Rolle MD (PCP) Additional Instructions: Follow-up with your steam powerplant supervisor as scheduled Fredi Adair M.D. Jul 08, 2019 12:52
[2019-07-08 12:57] LABS: BASOPHILS % (AUTO) 0.9 % (0.0-2.0); EOSINOPHILS % (AUTO) 0.5 % (0.0-3.0); HEMATOCRIT 29.1 % (37.0-47.0); HEMOGLOBIN 9.6 G/DL (12.0-16.0); LYMPHOCYTES % (AUTO) 9.5 % (20.0-45.0); MEAN CORPUSCULAR VOLUME 93 FL (80-99); MONOCYTES % (AUTO) 8.9 % (1.0-10.0); NEUTROPHILS % (AUTO) 80.3 % (45.0-75.0); PLATELET COUNT 328 K/UL (150-450); RED BLOOD COUNT 3.13 M/UL (4.20-5.40); WHITE BLOOD COUNT 5.7 K/UL (4.8-10.8)
[2019-07-08 12:58] LABS: ANION GAP 7 mmol/L (5-15); BLOOD UREA NITROGEN 48 mg/dL (7-18); CALCIUM 8.4 MG/DL (8.5-10.1); CARBON DIOXIDE 24 MMOL/L (21-32); CHLORIDE 105 MMOL/L (98-107); POTASSIUM 5.8 MMOL/L (3.5-5.1); SODIUM 136 MMOL/L (136-145)
[2019-07-08 13:03] LABS: ALANINE AMINOTRANSFERASE 15 U/L (12-78); ALBUMIN 2.7 G/DL (3.4-5.0); ALBUMIN/GLOBULIN RATIO 0.5 (1.0-2.7); ALKALINE PHOSPHATASE 76 U/L (46-116); ASPARTATE AMINO TRANSFERASE 21 U/L (15-37); BILIRUBIN,TOTAL 0.3 MG/DL (0.2-1.0)
--- NOTE | 2019-07-08 14:09 | Diagnostic Imaging Report ---
Indication: Abdominal pain, right flank pain for 3 days Technique: Spiral acquisitions obtained through the abdomen and pelvis. No oral or IV contrast utilized, per urinary stone protocol. Multiplanar reconstructions were generated. Total dose length product 399 mGycm. CTDIvol(s) 8 mGy. Dose reduction achieved using automated exposure control Comparison: 05/01/2019 Findings: No renal or ureteral calculi are demonstrated. This the ureters are mildly ectatic bilaterally, but there is no hydronephrosis. Lack of IV contrast limits assessment of the renal parenchyma. There is a 1 cm cyst in the periphery of the interpolar region of the right kidney. No focal renal abnormality seen on the left. The bladder is unremarkable. Lack of IV contrast limits assessment of the other solid organs. The liver demonstrates a calcification in the right lobe and a subcapsular calcification in the left lobe. The gallbladder and bile ducts are unremarkable. There is mild ectasia of the pancreatic duct. The pancreas is otherwise unremarkable. The spleen and adrenals are unremarkable. No retroperitoneal or mesenteric mass or adenopathy. Retroperitoneal nodes are abundant but not enlarged. The appendix is only questionably visualized, but no findings to suggest acute appendicitis are evident. No evidence of colonic diverticulosis or diverticulitis. No small bowel distention. No free or loculated intraperitoneal gas or fluid is evident. The distal esophagus, stomach, duodenum are unremarkable. The included lung bases demonstrate extensive cystic changes, interstitial septal thickening, bronchial wall thickening, bronchiectasis, and nonspecific groundglass opacities. Appearance is similar to the previous study. The bones are unremarkable. Impression: Negative for evidence of obstructive uropathy or urinary stone disease No acute abnormality elsewhere Extensive basilar pulmonary parenchymal abnormality, as described. Similarity to previous exam suggests that there is a significant chronic component to this. Correlate with clinical history Mild ectasia of the pancreatic duct, unchanged from previous study of 05/01/2019 and of doubtful significance Other findings as noted, including small right renal cyst, hepatic calcifications The CT scanner at [facility] is accredited by the [employer] and the scans are performed using protocols designed to limit radiation exposure to as low as reasonably achievable to attain images of sufficient resolution adequate for diagnostic evaluation.
[2019-07-08 15:00] VITALS: BP 115/70
[2019-07-08 15:10] VITALS: BP 115/70
--- NOTE | 2019-07-08 15:10 | NUR ---
ER DISCHARGE NOTE: Patient is cleared to be discharged per ERMD, pt is aox4, on room air, with stable vital signs. pt was given dc and CT copy instructions, pt was able to verbalize understanding, pt id band and iv site removed without complications. pt is able to ambulate with steady gait and family member. pt took all belongings.
== END 2019-07-08 15:14 | disposition home or self-care (01) ==
LOC: EMR 12:04
DX: R10.9 Unspecified abdominal pain (principal); N18.9 Chronic kidney disease, unspecified; M06.9 Rheumatoid arthritis, unspecified; M81.0 Age-related osteoporosis without current pathological fracture; N28.1 Cyst of kidney, acquired
CPT/HCPCS: 36415; 74176; 80053; 81003; 83690; 85025; 96374; 99284; J2405

== ENCOUNTER 2019-09-25 13:21 | Inpatient (IN) | payer MEDICARE, OTHER ==
[~2019-09-25] VITALS: Ht 152.4 cm; Wt 41.7 kg
--- NOTE | 2019-09-25 13:39 | NUR ---
ED Nurse Note: PT walked in to ED states she was told by her primary doctor due to high potassium level ( unknown level ) PT is alert x4.
[2019-09-25 13:43] VITALS: BP 112/60
--- NOTE | 2019-09-25 14:03 | NUR ---
ED Nurse Note: Blood sample sent down to lab
[2019-09-25 14:12] LABS: BASOPHILS % (AUTO) 0.6 % (0.0-2.0); EOSINOPHILS % (AUTO) 1.2 % (0.0-3.0); HEMATOCRIT 28.8 % (37.0-47.0); HEMOGLOBIN 9.4 G/DL (12.0-16.0); LYMPHOCYTES % (AUTO) 19.6 % (20.0-45.0); MEAN CORPUSCULAR VOLUME 92 FL (80-99); MONOCYTES % (AUTO) 9.4 % (1.0-10.0); NEUTROPHILS % (AUTO) 69.2 % (45.0-75.0); PLATELET COUNT 278 K/UL (150-450); RED BLOOD COUNT 3.12 M/UL (4.20-5.40); RED CELL DISTRIBUTION WIDTH 13.4 % (11.6-14.8)
[2019-09-25 14:21] LABS: ANION GAP 7 mmol/L (5-15); BLOOD UREA NITROGEN 50 mg/dL (7-18); CALCIUM 8.5 MG/DL (8.5-10.1); CARBON DIOXIDE 22 MMOL/L (21-32); CHLORIDE 108 MMOL/L (98-107); CREATININE 1.5 MG/DL (0.55-1.30); POTASSIUM 5.8 MMOL/L (3.5-5.1); SODIUM 137 MMOL/L (136-145)
[2019-09-25] MEDS ORDERED: Insulin Human Regular 100units/ml 3ml IV ONE (14:45)
[2019-09-25] MEDS ORDERED: Sodium Polystyrene Sulfonate 15gm Powder ORAL ONE (14:45)
--- NOTE | 2019-09-25 15:57 | NUR ---
ED Nurse Note: Patient resting in bed, tolerating medications well. No s/s of acute distress. Daughter at bedside.
--- NOTE | 2019-09-25 16:50 | NUR ---
NURSE NOTES: Received report from Yo CASTRO. Pt transferred from ED via gurney with ED RN and results technician. No c/o pain. No acute distress noted. Denied SOB. IV SITE In left hand 18g patent and asymptomatic. Call light within easy reach. side railx2 up for safety. private sector executive applied. Will page the Dr. Herrera for admission orders.
[2019-09-25 16:56] VITALS: BP 130/67
--- NOTE | 2019-09-25 17:06 | Emergency Room Report ---
History of Present Illness General Chief Complaint: Abnormal Labs Source: Patient, Medical Record Present Illness HPI Patient has known history of renal insufficiency Was getting routine blood work when her potassium was elevated I do not have access to the specific number Denies any chest pain denies any vomiting denies any palpitations denies any focal weakness Denies any change in medications denies any recent travel or trauma Allergies: Coded Allergies: No Known Allergies (Unverified , 10/02/15) Patient History Past Medical History: see triage record Reviewed Nursing Documentation: PMH: Agreed; PSxH: Agreed Nursing Documentation-PMH Past Medical History: No History, Except For Hx Cardiac Problems: No - Arthritis Hx Hypertension: No Hx Pacemaker: No Hx Asthma: No Hx COPD: No Hx Diabetes: No Hx Cancer: No Hx Gastrointestinal Problems: No - Pyelonephritis Hx Dialysis: No - "Kidney problem" History Of Psychiatric Problem: No Hx Neurological Problems: No Hx Cerebrovascular Accident: No Hx Seizures: No Hx Headaches: Yes Review of Systems All Other Systems: negative except mentioned in HPI Physical Exam Vital Signs Date Time Temp Pulse Resp B/P (MAP) Pulse Ox O2 Delivery O2 Flow Rate FiO2 09/25/19 13:35 98.2 82 15 101/61 (74) 99 Room Air Sp02 EP Interpretation: reviewed, normal General Appearance: well appearing, no apparent distress Head: normocephalic, atraumatic Eyes: bilateral eye PERRL, bilateral eye EOMI ENT: hearing grossly normal, normal pharynx, TMs + canals normal, uvula midline Neck: full range of motion, supple, no meningismus, no bony tend Respiratory: lungs clear, normal breath sounds, no rhonchi, no respiratory distress, no retraction, no accessory muscle use Cardiovascular #1: normal peripheral pulses, regular rate, rhythm, no edema, no gallop, no JVD, no murmur Gastrointestinal: normal bowel sounds, non tender, soft, no mass, no organomegaly, non-distended, no guarding, no hernia, no pulsatile mass, no rebound Genitourinary: no CVA tenderness Musculoskeletal: normal inspection Neurologic: motor strength/tone normal, bias machine operator III-XII nml as tested, oriented x3 , sensory intact, responsive Psychiatric: mood/affect normal Skin: no rash Lymphatic: normal inspection, no adenopathy Medical Decision Making Diagnostic Impression: Primary Impression: Hyperkalemia Additional Impressions: Renal failure (ARF), acute on chronic CKD (chronic kidney disease) ER Course Given the history and presentation blood work is initiated EKG does show concerning findings with mildly peaked T waves potassium level does also come back elevated Given change in EKG and the patient's history She is provided with emergent medication and admitted for further care Labs Test 09/25/19 14:00 White Blood Count 4.0 K/UL (4.8-10.8) Red Blood Count 3.12 M/UL (4.20-5.40) Hemoglobin 9.4 G/DL (12.0-16.0) Hematocrit 28.8 % (37.0-47.0) Mean Corpuscular Volume 92 FL (80-99) Mean Corpuscular Hemoglobin 30.1 PG (27.0-31.0) Mean Corpuscular Hemoglobin Concent 32.6 G/DL (32.0-36.0) Red Cell Distribution Width 13.4 % (11.6-14.8) Platelet Count 278 K/UL (150-450) Mean Platelet Volume 5.4 FL (6.5-10.1) Neutrophils (%) (Auto) 69.2 % (45.0-75.0) Lymphocytes (%) (Auto) 19.6 % (20.0-45.0) Monocytes (%) (Auto) 9.4 % (1.0-10.0) Eosinophils (%) (Auto) 1.2 % (0.0-3.0) Basophils (%) (Auto) 0.6 % (0.0-2.0) Sodium Level 137 MMOL/L (136-145) Potassium Level 5.8 MMOL/L (3.5-5.1) Chloride Level 108 MMOL/L (98-107) Carbon Dioxide Level 22 MMOL/L (21-32) Anion Gap 7 mmol/L (5-15) Blood Urea Nitrogen 50 mg/dL (7-18) Creatinine 1.5 MG/DL (0.55-1.30) Estimat Glomerular Filtration Rate mL/min (>60) Glucose Level 108 MG/DL (74-106) Calcium Level 8.5 MG/DL (8.5-10.1) EKG Diagnostic Results Rate: normal Rhythm: NSR ST Segments: other - Peaked T wave Rhythm Strip Diag. Results EP Interpretation: yes Rate: 66 Rhythm: NSR, no PVC's, no ectopy Last Vital Signs Date Time Temp Pulse Resp B/P (MAP) Pulse Ox O2 Delivery O2 Flow Rate FiO2 09/25/19 16:56 97.0 96 18 130/67 (88) 97 09/25/19 13:43 Room Air Status: improved Disposition: ADMITTED INPATIENT Condition: Serious Referrals: NON PHYSICIAN (PCP) Lawrence Jackson DO Sep 25, 2019 17:06
[2019-09-25] MEDS ORDERED: D5 1/2NS 1,000 ML IV SCH (17:46)
[2019-09-25] MEDS: Docusate 100mg cap ORAL SCH (18:00)
--- NOTE | 2019-09-25 19:41 | NUR ---
HAND-OFF: Report given to Allison CASTRO. Pt remians stable.
[2019-09-25 20:00] VITALS: BP 125/65
--- NOTE | 2019-09-25 20:00 | NUR ---
NURSE NOTES: Received patient from GLORIA Case. Patient resting in bed. Awake, alert and talkative. Family at bedside. Bed locked and lowest position. Call light within reach. Will continue to monitor.
[2019-09-25 21:34] LABS: APPEARANCE,URINE CLEAR; BILIRUBIN, URINE NEGATIVE (NEGATIVE); COLOR,URINE PALE YELLOW; GLUCOSE, URINE (UA) NEGATIVE (NEGATIVE); KETONES,URINE NEGATIVE (NEGATIVE); LEUKOCYTE ESTERASE ,URINE NEGATIVE (NEGATIVE); NITRITE,URINE NEGATIVE (NEGATIVE); PH,URINE 6 (4.5-8.0); PROTEIN,URINE 3+ (NEGATIVE); UROBILINOGEN,URINE NORMAL MG/DL (0.0-1.0)
[2019-09-26] VITALS: BP 126/72
[2019-09-26 04:00] VITALS: BP 117/58
[2019-09-26 07:13] LABS: BASOPHILS % (AUTO) 0.8 % (0.0-2.0); EOSINOPHILS % (AUTO) 1.7 % (0.0-3.0); HEMATOCRIT 29.4 % (37.0-47.0); HEMOGLOBIN 9.8 G/DL (12.0-16.0); LYMPHOCYTES % (AUTO) 17.4 % (20.0-45.0); MEAN CORPUSCULAR VOLUME 93 FL (80-99); MONOCYTES % (AUTO) 8.2 % (1.0-10.0); NEUTROPHILS % (AUTO) 71.9 % (45.0-75.0); PLATELET COUNT 302 K/UL (150-450); RED BLOOD COUNT 3.17 M/UL (4.20-5.40); RED CELL DISTRIBUTION WIDTH 13.6 % (11.6-14.8); WHITE BLOOD COUNT 4.4 K/UL (4.8-10.8)
[2019-09-26 07:39] LABS: % IRON SATURATION 15 % (15-50); IRON 38 ug/dL (50-175); TOTAL IRON BINDING CAPACITY 257 ug/dL (250-450)
--- NOTE | 2019-09-26 07:52 | NUR ---
HAND-OFF: Report given to GLORIA Cervantes.
[2019-09-26 08:00] VITALS: BP 116/72
[2019-09-26 08:09] LABS: ALANINE AMINOTRANSFERASE 21 U/L (12-78); ALBUMIN 2.6 G/DL (3.4-5.0); ALBUMIN/GLOBULIN RATIO 0.5 (1.0-2.7); ALKALINE PHOSPHATASE 89 U/L (46-116); ANION GAP 7 mmol/L (5-15); ASPARTATE AMINO TRANSFERASE 25 U/L (15-37); BILIRUBIN,TOTAL 0.2 MG/DL (0.2-1.0); BLOOD UREA NITROGEN 41 mg/dL (7-18); CALCIUM 8.6 MG/DL (8.5-10.1); CARBON DIOXIDE 24 MMOL/L (21-32); CHLORIDE 108 MMOL/L (98-107); CREATININE 1.7 MG/DL (0.55-1.30); FERRITIN 109 NG/ML (8-388); PHOSPHORUS 3.7 MG/DL (2.5-4.9); POTASSIUM 4.8 MMOL/L (3.5-5.1); SODIUM 139 MMOL/L (136-145)
--- NOTE | 2019-09-26 08:27 | NUR ---
NURSE NOTES: Pt alert X4 and awake. No complains of pain. Bed is locked and in lowest position. Call light within reach. Pt on environmental monitoring technician no signs of cardiac or respiratory distress at this moment. Will continue to follow plan of care.
[2019-09-26] MEDS ORDERED: Aspirin EC 81mg tab ORAL SCH (09:00)
--- NOTE | 2019-09-26 09:44 | Consultation ---
Consult Note Consult Note asked to eval by Dr Herrera for high K and renal failure poor historian ER Patient has known history of renal insufficiency Was getting routine blood work when her potassium was elevated I do not have access to the specific number Denies any chest pain denies any vomiting denies any palpitations denies any focal weakness Denies any change in medications denies any recent travel or trauma No Known Allergies (Unverified , 10/02/15) examined data reviewed . Assessment/Plan (1) ROLANDO (acute kidney injury) (2) Renal failure (ARF), acute on chronic (3) Severe anemia (4) Protein calorie mal nutrition- BMI 17.2 (5) h/o UTI Others: h/o bronchitis h/o abdominal pain and nausea, possibly enteritis ( by CT scan) RA Plan one dose IV Iron Avoid nephrotoxics hydrate- Anemia workup Isma Unger MD Sep 26, 2019 09:44
[2019-09-26] MEDS ORDERED: D5 1/2NS 1,000 ML IV SCH (10:00)
[2019-09-26] MEDS: Docusate 100mg cap ORAL SCH ×3 (10:01→17:58)
[2019-09-26] MEDS ORDERED: Albuterol/Ipratropium 3ml neb HHN PRN ×2 (11:45→23:45)
--- NOTE | 2019-09-26 11:54 | NUR ---
RD ASSESSMENT & RECOMMENDATIONS SEE CARE ACTIVITY FOR COMPLETE ASSESSMENT DAILY ESTIMATED NEEDS: Needs based on Underweight/ 42kg 30-35 kcals/kg 4958-6800 total kcals 1-1.5 g protein/kg 42-63 g total protein 25-30 mL/kg 8402-8482 total fluid mLs NUTRITION DIAGNOSIS: (1) Increased kcal/pro needs R/T underweight status as evidenced by pt @ 92% IBW, underweight BMI per guidelines. (2) Altered nutrition related lab values r/t acute kidney injury, clinical condition as evidenced by elev K (5.8 upon adm -> now wnl), elev creat (1.7) CURRENT DIET:Renal PO DIET RECOMMENDATIONS: LOW NA, LOW POTASSIUM diet/ soft easy chew ADDITIONAL RECOMMENDATIONS: * Weekly calibrated bedscale wt * Monitor K closely: 5.8 -> wnl * Nepro x 1 (425kcal/19g prot per sergey)- vanilla flavor per pt request * Monitor for continued good PO intake . .
[2019-09-26 12:00] VITALS: BP 114/62
--- NOTE | 2019-09-26 12:18 | Consultation ---
History of Present Illness General Date patient seen: Sep 26, 2019 Time patient seen: 09:30 Chief Complaint: Abnormal Labs Referring physician: dr Herrera Reason for Consultation: hx of bronchtiis, hx of Mycobacterim PNA Present Illness HPI 74 years old female with past medical history of rheumatoid arthritis, renal insufficiency, hyperkalemia, malnutrition, history of bronchitis , pneumonia with Mycobacterium avium complex , emphysema, presented for evaluation and found to have evidence of renal insufficiency and hyperkalemia. Patient denies chest pain , shortness of breath, cough. Upon evaluation potassium was 5.8. BUN 50, creatinine 1.5. Glucose 108. No leukocytosis, WBC 4.0 ,hemoglobin 9.4 ,hematocrit 28.8 ,platelet count 278. Urinalysis revealed no evidence of urinary tract infection. Patient subsequently admitted for further management. Allergies: Coded Allergies: No Known Allergies (Unverified , 10/02/15) Medication History Scheduled Hydroxychloroquine Sulfate (Hydroxychloroquine Sulfate), 200 MG PO DAILY, ( Reported) Scheduled PRN Ibuprofen* (Advil*), Unknown Dose ORAL PRN PRN for Mild Pain/Temp > 100.5, ( Reported) Discontinued Medications Aspirin* (Aspir 81*), 81 MG ORAL DAILY, (Reported) Discontinued Reason: Pt stopped taking med Calcium Carbonate (Calcium), 500 MG PO DAILY, (Reported) Discontinued Reason: Pt stopped taking med Calcium Carbonate/Vitamin D3 (Calcium + Vitamin D Tablet), 1 EACH PO BID, ( Reported) Discontinued Reason: Pt stopped taking med Multivits-Min/Iron/FA/Lutein (Centrum Silver Women Tablet), 1 EACH PO DAILY, ( Reported) Discontinued Reason: Pt stopped taking med Patient History History Provided By: Patient Healthcare decision maker Resuscitation status Full Code Advanced Directive on File Past Medical/Surgical History Past Medical/Surgical History: (1) Emphysema lung (2) Purulent bronchitis (3) Severe anemia (4) Pneumonia (5) Acute respiratory failure (6) Renal failure (ARF), acute on chronic (7) CKD (chronic kidney disease) (8) Renal failure (ARF), acute on chronic (9) TEGAN (mycobacterium avium-intracellulare) (10) Severe protein-calorie malnutrition (11) ROLANDO (acute kidney injury) Review of Systems Constitutional: Reports: no symptoms Eye: Reports: no symptoms ENT: Reports: no symptoms Respiratory: Reports: other - hx of PNA, COPD, bronchitis, Cardiovascular: Reports: no symptoms Gastrointestinal: Reports: no symptoms Genitourinary: Reports: no symptoms Musculoskeletal: Reports: joint pain, joint swelling, muscle stiffness, other - RA Skin: Reports: no symptoms Psychiatric: Reports: no symptoms Neurological: Reports: no symptoms Endocrine: Reports: no symptoms Hematologic/Lymphatic: Reports: anemia Physical Exam General Appearance: no apparent distress, other - frail cachetic female in NAD Lines, tubes and drains: peripheral HEENT: normocephalic, atraumatic, anicteric, mucous membranes moist Neck: non-tender, supple Respiratory/Chest: decreased breath sounds Cardiovascular/Chest: normal peripheral pulses, normal rate, regular rhythm Abdomen: normal bowel sounds, non tender, soft Skin Exam: warm/dry Neurologic: no motor/sensory deficits, alert, oriented x 3, responsive Musculoskeletal: normal muscle bulk Last 24 Hour Vital Signs Date Time Temp Pulse Resp B/P (MAP) Pulse Ox O2 Delivery O2 Flow Rate FiO2 09/26/19 04:00 97.8 62 18 117/58 (77) 97 09/26/19 03:45 57 09/26/19 00:00 98.1 63 18 126/72 (90) 96 09/25/19 23:51 57 09/25/19 21:00 Room Air 09/25/19 20:01 69 09/25/19 20:00 97.3 68 18 125/65 (85) 97 09/25/19 18:35 Room Air 09/25/19 16:56 97.0 96 18 130/67 (88) 97 09/25/19 16:45 98.1 72 18 138/86 100 Room Air 09/25/19 13:43 98.2 72 15 112/60 99 Room Air 09/25/19 13:35 98.2 82 15 101/61 (74) 99 Room Air Intake and Output 09/25/19 09/26/19 19:00 07:00 Intake Total 0 ml 700 ml Balance 0 ml 700 ml Intake Oral 0 ml 100 ml IV Total 600 ml # Voids 2 Laboratory Tests Test 09/25/19 14:00 09/25/19 19:30 09/26/19 06:45 White Blood Count 4.0 K/UL (4.8-10.8) L 4.4 K/UL (4.8-10.8) L Red Blood Count 3.12 M/UL (4.20-5.40) L 3.17 M/UL (4.20-5.40) L Hemoglobin 9.4 G/DL (12.0-16.0) L 9.8 G/DL (12.0-16.0) L Hematocrit 28.8 % (37.0-47.0) L 29.4 % (37.0-47.0) L Mean Corpuscular Volume 92 FL (80-99) 93 FL (80-99) Mean Corpuscular Hemoglobin 30.1 PG (27.0-31.0) 30.9 PG (27.0-31.0) Mean Corpuscular Hemoglobin Concent 32.6 G/DL (32.0-36.0) 33.4 G/DL (32.0-36.0) Red Cell Distribution Width 13.4 % (11.6-14.8) 13.6 % (11.6-14.8) Platelet Count 278 K/UL (150-450) 302 K/UL (150-450) Mean Platelet Volume 5.4 FL (6.5-10.1) L 5.4 FL (6.5-10.1) L Neutrophils (%) (Auto) 69.2 % (45.0-75.0) 71.9 % (45.0-75.0) Lymphocytes (%) (Auto) 19.6 % (20.0-45.0) L 17.4 % (20.0-45.0) L Monocytes (%) (Auto) 9.4 % (1.0-10.0) 8.2 % (1.0-10.0) Eosinophils (%) (Auto) 1.2 % (0.0-3.0) 1.7 % (0.0-3.0) Basophils (%) (Auto) 0.6 % (0.0-2.0) 0.8 % (0.0-2.0) Sodium Level 137 MMOL/L (136-145) 139 MMOL/L (136-145) Potassium Level 5.8 MMOL/L (3.5-5.1) H 4.8 MMOL/L (3.5-5.1) Chloride Level 108 MMOL/L (98-107) H 108 MMOL/L (98-107) H Carbon Dioxide Level 22 MMOL/L (21-32) 24 MMOL/L (21-32) Anion Gap 7 mmol/L (5-15) 7 mmol/L (5-15) Blood Urea Nitrogen 50 mg/dL (7-18) H 41 mg/dL (7-18) H Creatinine 1.5 MG/DL (0.55-1.30) H 1.7 MG/DL (0.55-1.30) H Estimat Glomerular Filtration Rate mL/min (>60) mL/min (>60) Glucose Level 108 MG/DL (74-106) H 93 MG/DL (74-106) Calcium Level 8.5 MG/DL (8.5-10.1) 8.6 MG/DL (8.5-10.1) Urine Color Pale yellow Urine Appearance Clear Urine pH 6 (4.5-8.0) Urine Specific [place] 1.010 (1.005-1.035) Urine Protein 3+ (NEGATIVE) H Urine Glucose (UA) Negative (NEGATIVE) Urine Ketones Negative (NEGATIVE) Urine Blood 4+ (NEGATIVE) H Urine Nitrite Negative (NEGATIVE) Urine Bilirubin Negative (NEGATIVE) Urine Urobilinogen Normal MG/DL (0.0-1.0) Urine Leukocyte Esterase Negative (NEGATIVE) Urine RBC 2-4 /HPF (0 - 2) H Urine WBC 0-2 /HPF (0 - 2) Urine Squamous Epithelial Cells None /LPF (NONE/OCC) Urine Bacteria None /HPF (NONE) Urine Random Sodium 71 mmol/L (20-110) Uric Acid 6.4 MG/DL (2.6-7.2) Phosphorus Level 3.7 MG/DL (2.5-4.9) Magnesium Level 2.1 MG/DL (1.8-2.4) Iron Level 38 ug/dL (50-175) L Total Iron Binding Capacity 257 ug/dL (250-450) Percent Iron Saturation 15 % (15-50) Unsaturated Iron Binding 219 ug/dL (112-346) Ferritin 109 NG/ML (8-388) Total Bilirubin 0.2 MG/DL (0.2-1.0) Aspartate Amino Transf (AST/SGOT) 25 U/L (15-37) Alanine Aminotransferase (ALT/SGPT) 21 U/L (12-78) Alkaline Phosphatase 89 U/L (46-116) Troponin I 0.000 ng/mL (0.000-0.056) Total Protein 7.8 G/DL (6.4-8.2) Albumin 2.6 G/DL (3.4-5.0) L Globulin 5.2 g/dL Albumin/Globulin Ratio 0.5 (1.0-2.7) L Vitamin B12 Level 647 PG/ML (193-986) Folate 14.0 NG/ML (8.6-58.9) Thyroid Stimulating Hormone (TSH) 2.356 uiU/mL (0.358-3.740) Height (Feet): 5 Height (Inches): 0.00 Weight (Pounds): 88 Medications Current Medications Medications (Trade) Dose Ordered Sig/Floyd Route PRN Reason Start Time Stop Time Status Last Admin Dose Admin Dextrose/Sodium Chloride 1,000 ml @ 75 mls/hr [id number] IV 09/26/19 10:00 10/25/19 09:59 09/26/19 10:02 Docusate Sodium (Colace) 100 mg THREE TIMES A DAY ORAL 09/25/19 18:00 10/25/19 17:59 09/26/19 10:01 Heparin Sodium (Porcine) (Heparin 5000 units/ml) 5,000 units EVERY 12 HOURS SUBQ 09/26/19 21:00 10/26/19 20:59 Hydroxychloroquine Sulfate (Plaquenil) 200 mg DAILY ORAL 09/26/19 09:00 10/26/19 08:59 09/26/19 10:01 Pantoprazole (Protonix) 40 mg EVERY 12 HOURS ORAL 09/25/19 21:00 10/25/19 20:59 09/26/19 10:01 Assessment/Plan Assessment/Plan: ASSESSMENT Hyperkalemia ROLANDO on CRI COPD/emphysema lung Anemia Protein calorie malnutrition RA Hx of Mycobacterium avium PNA PLAN OF CARE tele O2 HHN prn check CXR DVT prophayxlis Hyperkalemia- treated, resolved IVF, monitor renal parametees, correct electrolytes as neeed nephro on board avoid nephrotoxic, NSAIDS was DC ( probably was used for RA) pt will need other means for pain management for RA than NSAID Plaquenil continue anemia w/up noted, 1 dose of Venofer as ordered by nephro check stool OB and CEA ( prior in 2018 negative) GI prophayxlsi dietary eval can be transferred to [facility] case discussed and evaluated by supervising physician Nora Hinojosa NP Sep 26, 2019 12:17
--- NOTE | 2019-09-26 13:56 | CDS Physician Query ---
Clarification is required for compliance, coding accuracy, and to reflect severity of illness for this patient Dear Isma Richard MD Date: 09/26/2019 Bill Sorter/CDS Name: Pj March Assessment/Plan (1) ROLANDO (acute kidney injury) (2) Renal failure (ARF), acute on chronic (3) Severe anemia (4) Protein calorie mal nutrition- BMI 17.2 (5) h/o UTI Albumin: 2.6 Please select the most appropriate option: [] Protein/Calorie Malnutrition [] Mild [] Moderate [] Severe Present on Admission: [] Yes [] No [] Clinically Undetermined Physician signature Date Please also document in your Progress Notes and/or Discharge Summary and indicate if the condition was present on admission. MTDD
--- NOTE | 2019-09-26 14:56 | NUR ---
RADIOLOGY DEPT., CHEST X-RAY DONE.-P.DYE
--- NOTE | 2019-09-26 15:54 | Diagnostic Imaging Report ---
EXAM: XR Chest, 1 View CLINICAL HISTORY: SOB TECHNIQUE: Frontal view of the chest. COMPARISON: No relevant prior studies available. FINDINGS: Lungs: Thickening of interstitial markings. Pleural space: Unremarkable. No pneumothorax. Heart: Mild cardiomegaly. Mediastinum: Unremarkable. Bones/joints: No acute fracture. IMPRESSION: Thickening of interstitial markings.
[2019-09-26 16:00] VITALS: BP 108/63
--- NOTE | 2019-09-26 19:50 | NUR ---
NURSE NOTES: Received pt from GLORIA Cervantes. Pt awake, alert, and talkative. Bed in lowest position. Son at bedside. Call light within reach. Will continue to monitor.
--- NOTE | 2019-09-26 19:55 | NUR ---
HAND-OFF: Report given to Allison/GLORIA.
[2019-09-26 20:00] VITALS: BP 116/60
--- NOTE | 2019-09-26 20:00 | History and Physical Report ---
DATE OF ADMISSION: 09/25/2019 DATE AND TIME SEEN: 09/26/2019 at 8 a.m. STEAM TENDER: Isma Unger M.D. CHIEF COMPLAINT: Weakness, hyperkalemia, and renal insufficiency. BRIEF HISTORY: This is a 74-year-old female, who lives at home, presents with two-day increased weakness, was found to have hyperkalemia and was transferred to [facility], diagnosed with the above, admitted to telemetry for further care. Currently, calm, in bed. No complaint. No chest pain. No shortness of breath. No nausea, vomiting, or diarrhea. PAST MEDICAL HISTORY: Renal insufficiency, respiratory failure, anemia, CKD, malnutrition, and emphysema. PAST SURGICAL HISTORY: None. ALLERGIES: Denies. MEDICATIONS: Include aspirin, Plaquenil, Protonix, Advil, and Colace. SOCIAL HISTORY: No smoking. No alcohol. No intravenous drug abuse. FAMILY HISTORY: Noncontributory. PHYSICAL EXAMINATION: GENERAL: Calm in bed, oriented x2, in no acute distress. VITAL SIGNS: Temperature 97 degrees, pulse 62, respirations 18, and blood pressure 117/58. CARDIOVASCULAR: No murmur. LUNGS: Clear and distant. ABDOMEN: Bowel sound positive. Nontender. Nondistended. EXTREMITIES: No cyanosis, clubbing, or edema. NEUROLOGIC: The patient moves all extremities, slightly weak. LABORATORY AND DIAGNOSTIC DATA: Labs at this time show white count 4.4, H and H 9.8/29, otherwise CBC is normal. BMP - initial potassium 5.8, now is 4.8; chloride 108; BUN and creatinine 41/1.7 38. Albumin 2.6. Troponin 0.00. Urinalysis, 4+ blood, 3+ protein. ASSESSMENT: 1. Hyperkalemia. 2. Renal insufficiency. 3. Weakness. 4. History of respiratory failure. 5. Emphysema. PLAN: 1. O2 and pulmonary treatment 2. IV fluids. 3. Dietary followup. 4. Nephrology followup. 5. Resume home medications. 6. PT and dietary evaluation. 7. CBC and BMP in the morning. Isaak Herrera D.O. DR: FRANKLYN JOB#: [id number] CC:
[2019-09-26] MEDS ORDERED: Heparin 5000 units/ml inj SUBQ SCH (21:00)
--- NOTE | 2019-09-26 22:20 | NUR ---
NURSE NOTES: Received report from GLORIA Cooper. AAO x 4, on room air. Swedish speaking. Pt transferred from tele. IV site intact and running IVF. All belongings checked. Skin is intact. No acute distress noted. Vitals 112/65 BP, 74 HR, 95%, 98.2F. Bed locked, lowest position, alarm on, side rails up, call light within reach. Will continue to monitor.
--- NOTE | 2019-09-26 22:25 | NUR ---
HAND-OFF: Report given to 4E RN. Pt stable. Now in 408-2. Tele box removed and son alerted of transfer.
[2019-09-26] MEDS: D5 1/2NS 1,000 ML IV SCH (22:39)
[2019-09-27] VITALS: BP 110/56
[2019-09-27 04:00] VITALS: BP 113/63
[2019-09-27 07:29] LABS: BASOPHILS % (AUTO) 0.7 % (0.0-2.0); EOSINOPHILS % (AUTO) 1.2 % (0.0-3.0); HEMATOCRIT 28.2 % (37.0-47.0); HEMOGLOBIN 9.4 G/DL (12.0-16.0); MEAN CORPUSCULAR VOLUME 92 FL (80-99); MONOCYTES % (AUTO) 8.2 % (1.0-10.0); NEUTROPHILS % (AUTO) 67.9 % (45.0-75.0); PLATELET COUNT 280 K/UL (150-450); RED BLOOD COUNT 3.08 M/UL (4.20-5.40); RED CELL DISTRIBUTION WIDTH 13.4 % (11.6-14.8); WHITE BLOOD COUNT 4.6 K/UL (4.8-10.8)
[2019-09-27 07:32] LABS: ANION GAP 7 mmol/L (5-15); BLOOD UREA NITROGEN 34 mg/dL (7-18); CALCIUM 8.6 MG/DL (8.5-10.1); CARBON DIOXIDE 23 MMOL/L (21-32); CHLORIDE 109 MMOL/L (98-107); CREATININE 1.6 MG/DL (0.55-1.30); POTASSIUM 4.2 MMOL/L (3.5-5.1); SODIUM 139 MMOL/L (136-145)
--- NOTE | 2019-09-27 07:32 | NUR ---
HAND-OFF: Report given to GLORIA Max.
--- NOTE | 2019-09-27 07:46 | NUR ---
NURSE NOTES: received report from GLORIA monterroso. patient in bed, alert. oriented. verbally responsive. no respiratory distress noted. no c/o pain at this time. IV on LFA 22g d51/2 running @75/hr. potassium 4.2 today. ambulatory. bed in the lowest position and locked. call light within reach. will continue to provide plan of care.
[2019-09-27 08:00] VITALS: BP 113/57
--- NOTE | 2019-09-27 08:52 | General Progress Note ---
Assessment/Plan Problem List: (1) Anemia ICD Codes: D64.9 - Anemia, unspecified SNOMED: 219871325 (2) Renal insufficiency ICD Codes: N28.9 - Disorder of kidney and ureter, unspecified SNOMED: 117151105, 913918536 (3) Hyperkalemia ICD Codes: E87.5 - Hyperkalemia SNOMED: 04857114 (4) CKD (chronic kidney disease) ICD Codes: N18.9 - Chronic kidney disease, unspecified SNOMED: 871854747 (5) Emphysema lung ICD Codes: J43.9 - Emphysema, unspecified SNOMED: 96049549 Status: unchanged Assessment/Plan: pt diet o2 pulm tx prn neph f/u cbc bmp am dc plan w hh Subjective Constitutional: Reports: weakness Allergies: Coded Allergies: No Known Allergies (Unverified , 10/02/15) All Systems: reviewed and negative except above Subjective calm in bed Objective Last 24 Hour Vital Signs Date Time Temp Pulse Resp B/P (MAP) Pulse Ox O2 Delivery O2 Flow Rate FiO2 09/27/19 04:00 98.2 70 18 113/63 (80) 97 09/27/19 00:00 99.0 71 18 110/56 (74) 96 09/26/19 21:00 Room Air 09/26/19 20:00 99.0 89 16 116/60 (78) 96 09/26/19 16:00 98.4 72 16 108/63 (78) 97 09/26/19 16:00 61 09/26/19 12:00 68 09/26/19 12:00 97.8 68 16 114/62 (79) 97 09/26/19 09:00 Room Air Intake and Output 09/26/19 09/27/19 19:00 07:00 Intake Total 800 ml 1050 ml Balance 800 ml 1050 ml Intake Oral 800 ml 600 ml IV Total 450 ml # Voids 3 6 Laboratory Tests 09/26/19 18:30: Stool Occult Blood [Pending] 09/27/19 06:20: White Blood Count 4.6L, Red Blood Count 3.08L, Hemoglobin 9.4L, Hematocrit 28.2L , Mean Corpuscular Volume 92, Mean Corpuscular Hemoglobin 30.7, Mean Corpuscular Hemoglobin Concent 33.5, Red Cell Distribution Width 13.4, Platelet Count 280, Mean Platelet Volume 5.7L, Neutrophils (%) (Auto) 67.9, Lymphocytes ( %) (Auto) 22.0, Monocytes (%) (Auto) 8.2, Eosinophils (%) (Auto) 1.2, Basophils (%) (Auto) 0.7, Sodium Level 139, Potassium Level 4.2, Chloride Level 109H, Carbon Dioxide Level 23, Anion Gap 7, Blood Urea Nitrogen 34H, Creatinine 1.6H, Estimat Glomerular Filtration Rate , Glucose Level 99, Calcium Level 8.6 Height (Feet): 5 Height (Inches): 0.00 Weight (Pounds): 88 General Appearance: lethargic EENT: normal ENT inspection Neck: normal alignment Cardiovascular: normal peripheral pulses, normal rate, regular rhythm Respiratory/Chest: chest wall non-tender, lungs clear, normal breath sounds Abdomen: normal bowel sounds, non tender, soft Extremities: normal inspection Edema: no edema noted Arm (L), no edema noted Arm (R), no edema noted Leg (L), no edema noted Leg (R), no edema noted Pedal (L), no edema noted Pedal (R), no edema noted Generalized Neurologic: motor weakness Skin: normal pigmentation, warm/dry Isaak Herrera DO Sep 27, 2019 08:52
[2019-09-27] MEDS: Docusate 100mg cap ORAL SCH ×3 (09:06→17:24)
[2019-09-27] MEDS: Heparin 5000 units/ml inj SUBQ SCH ×2 (09:08→20:05)
--- NOTE | 2019-09-27 09:40 | NUR ---
PT Note PT eval completed. Patient is independent in all mobility and gait without any AD. No loss of balance noted. Denies any dizziness. No further PT treatments needed at this time. Addendum: 09/27/19 at 0941 by VICKIE BARR PT Amended: Links added.
--- NOTE | 2019-09-27 10:49 | Pulmonology Progress Note ---
Assessment/Plan Assessment/Plan ASSESSMENT Hyperkalemia-resolved ROLANDO on CRI COPD/emphysema lung Anemia Protein calorie malnutrition RA Hx of Mycobacterium avium PNA PLAN OF CARE [facility] floor O2 HHN prn check CXR - with thickening of interstitial markings DVT prophayxlis Hyperkalemia- treated, resolved IVF, monitor renal parameters, correct electrolytes as neeed nephro on board avoid nephrotoxic, NSAIDS was DC ( probably was used for RA) pt will need other means for pain management for RA than NSAID Plaquenil continue anemia w/up noted, 1 dose of Venofer as ordered by nephro stool OB P and CEA WNL ( prior in 2018 negative) GI prophayxlsi dietary eval case discussed and evaluated by supervising physician Subjective Allergies: Coded Allergies: No Known Allergies (Unverified , 10/02/15) Subjective remains respiratory eason stable on RA pulse ox stable, no cough, no congestion, no SOB CXR noted Objective Last 24 Hour Vital Signs Date Time Temp Pulse Resp B/P (MAP) Pulse Ox O2 Delivery O2 Flow Rate FiO2 09/27/19 09:03 82 20 96 Room Air 21 09/27/19 09:00 Room Air 09/27/19 08:00 98.7 80 18 113/57 (75) 97 09/27/19 04:00 98.2 70 18 113/63 (80) 97 09/27/19 00:00 99.0 71 18 110/56 (74) 96 09/26/19 21:00 Room Air 09/26/19 20:00 99.0 89 16 116/60 (78) 96 09/26/19 16:00 98.4 72 16 108/63 (78) 97 09/26/19 16:00 61 09/26/19 12:00 68 09/26/19 12:00 97.8 68 16 114/62 (79) 97 Intake and Output 09/26/19 09/27/19 19:00 07:00 Intake Total 800 ml 1050 ml Balance 800 ml 1050 ml Intake Oral 800 ml 600 ml IV Total 450 ml # Voids 3 6 Objective General Appearance: no apparent distress, frail cachetic female in NAD Lines, tubes and drains: peripheral HEENT: normocephalic, atraumatic, anicteric, mucous membranes moist Neck: non-tender, supple Respiratory/Chest: decreased breath sounds Cardiovascular/Chest: normal peripheral pulses, normal rate, regular rhythm Abdomen: normal bowel sounds, non tender, soft Skin Exam: warm/dry Neurologic: no motor/sensory deficits, alert, oriented x 3, responsive Musculoskeletal: normal muscle bulk Laboratory Tests 09/26/19 18:30: Stool Occult Blood [Pending] 09/27/19 06:20: White Blood Count 4.6L, Red Blood Count 3.08L, Hemoglobin 9.4L, Hematocrit 28.2L , Mean Corpuscular Volume 92, Mean Corpuscular Hemoglobin 30.7, Mean Corpuscular Hemoglobin Concent 33.5, Red Cell Distribution Width 13.4, Platelet Count 280, Mean Platelet Volume 5.7L, Neutrophils (%) (Auto) 67.9, Lymphocytes ( %) (Auto) 22.0, Monocytes (%) (Auto) 8.2, Eosinophils (%) (Auto) 1.2, Basophils (%) (Auto) 0.7, Sodium Level 139, Potassium Level 4.2, Chloride Level 109H, Carbon Dioxide Level 23, Anion Gap 7, Blood Urea Nitrogen 34H, Creatinine 1.6H, Estimat Glomerular Filtration Rate , Glucose Level 99, Calcium Level 8.6 Current Medications Medications (Trade) Dose Ordered Sig/Floyd Route PRN Reason Start Time Stop Time Status Last Admin Dose Admin Albuterol/ Ipratropium (Albuterol/ Ipratropium) 3 ml Q4H PRN HHN Shortness of Breath 09/26/19 23:45 10/01/19 11:44 Dextrose/Sodium Chloride 1,000 ml @ 75 mls/hr [id number] IV 09/26/19 22:30 10/25/19 09:59 09/26/19 22:39 Docusate Sodium (Colace) 100 mg THREE TIMES A DAY ORAL 09/27/19 09:00 10/25/19 17:59 09/27/19 09:06 Heparin Sodium (Porcine) (Heparin 5000 units/ml) 5,000 units EVERY 12 HOURS SUBQ 09/27/19 09:00 10/26/19 20:59 09/27/19 09:08 Hydroxychloroquine Sulfate (Plaquenil) 200 mg DAILY ORAL 09/27/19 09:00 10/26/19 08:59 09/27/19 09:06 Pantoprazole (Protonix) 40 mg EVERY 12 HOURS ORAL 09/27/19 09:00 10/25/19 20:59 09/27/19 09:06 Nora Hinojosa NP Sep 27, 2019 10:49
[2019-09-27 12:00] VITALS: BP 119/65
--- NOTE | 2019-09-27 12:06 | Nephrology Progress Note ---
Assessment/Plan Problem List: (1) ROLANDO (acute kidney injury) (2) Severe anemia (3) Severe protein-calorie malnutrition Assessment: BMI 17.2 Assessment (1) ROLANDO (acute kidney injury) (2) Renal failure (ARF), acute on chronic (3) Severe anemia (4) Protein calorie mal nutrition- BMI 17.2 (5) h/o UTI Others: h/o bronchitis h/o abdominal pain and nausea, possibly enteritis ( by CT scan) RA Plan Plan one dose IV Iron Avoid nephrotoxics hydrate- Anemia workup Subjective ROS Limited/Unobtainable: No Constitutional: Reports: malaise, weakness Objective Objective Last 24 Hour Vital Signs Date Time Temp Pulse Resp B/P (MAP) Pulse Ox O2 Delivery O2 Flow Rate FiO2 09/27/19 09:03 82 20 96 Room Air 21 09/27/19 09:00 Room Air 09/27/19 08:00 98.7 80 18 113/57 (75) 97 09/27/19 04:00 98.2 70 18 113/63 (80) 97 09/27/19 00:00 99.0 71 18 110/56 (74) 96 09/26/19 21:00 Room Air 09/26/19 20:00 99.0 89 16 116/60 (78) 96 09/26/19 16:00 98.4 72 16 108/63 (78) 97 09/26/19 16:00 61 Intake and Output 09/26/19 09/27/19 19:00 07:00 Intake Total 800 ml 1050 ml Balance 800 ml 1050 ml Intake Oral 800 ml 600 ml IV Total 450 ml # Voids 3 6 Laboratory Tests 09/26/19 18:30: Stool Occult Blood [Pending] 09/27/19 06:20: White Blood Count 4.6L, Red Blood Count 3.08L, Hemoglobin 9.4L, Hematocrit 28.2L , Mean Corpuscular Volume 92, Mean Corpuscular Hemoglobin 30.7, Mean Corpuscular Hemoglobin Concent 33.5, Red Cell Distribution Width 13.4, Platelet Count 280, Mean Platelet Volume 5.7L, Neutrophils (%) (Auto) 67.9, Lymphocytes ( %) (Auto) 22.0, Monocytes (%) (Auto) 8.2, Eosinophils (%) (Auto) 1.2, Basophils (%) (Auto) 0.7, Sodium Level 139, Potassium Level 4.2, Chloride Level 109H, Carbon Dioxide Level 23, Anion Gap 7, Blood Urea Nitrogen 34H, Creatinine 1.6H, Estimat Glomerular Filtration Rate , Glucose Level 99, Calcium Level 8.6 Height (Feet): 5 Height (Inches): 0.00 Weight (Pounds): 88 General Appearance: no apparent distress Cardiovascular: normal rate Respiratory/Chest: lungs clear Abdomen: non tender Objective no change Isma Unger MD Sep 27, 2019 12:06
[2019-09-27] MEDS: D5 1/2NS 1,000 ML IV SCH (13:23)
[2019-09-27 16:00] VITALS: BP 128/71
--- NOTE | 2019-09-27 18:58 | NUR ---
HAND-OFF: Report given to GLORIA Medina.
--- NOTE | 2019-09-27 19:18 | NUR ---
NURSE NOTES: Received report from GLORIA Max. AAO x 4, on room air. Hebrew speaking. Family at bedside. IV site intact and running IVF. No acute distress noted. Bed locked, lowest position, alarm on, side rails up, call light within reach. Will continue to monitor.
[2019-09-27 19:50] VITALS: BP 123/65
[2019-09-28] VITALS: BP 113/61
[2019-09-28 04:00] VITALS: BP 102/59
--- NOTE | 2019-09-28 07:13 | NUR ---
HAND-OFF: Report given to GLORIA Paredes.
--- NOTE | 2019-09-28 07:14 | NUR ---
NURSE NOTES: Received patient in bed awake. No SOB or acute distress. IV line intact and patent. HOB elevated. Bed locked in lowest position. Call light within reach. Will continue plan of care.
[2019-09-28 08:00] VITALS: BP 104/57
[2019-09-28 08:28] LABS: BASOPHILS % (AUTO) 1.1 % (0.0-2.0); EOSINOPHILS % (AUTO) 1.7 % (0.0-3.0); HEMATOCRIT 28.6 % (37.0-47.0); HEMOGLOBIN 9.7 G/DL (12.0-16.0); LYMPHOCYTES % (AUTO) 23.3 % (20.0-45.0); MEAN CORPUSCULAR VOLUME 92 FL (80-99); MONOCYTES % (AUTO) 7.4 % (1.0-10.0); NEUTROPHILS % (AUTO) 66.5 % (45.0-75.0); PLATELET COUNT 283 K/UL (150-450); RED BLOOD COUNT 3.11 M/UL (4.20-5.40); RED CELL DISTRIBUTION WIDTH 13.1 % (11.6-14.8); WHITE BLOOD COUNT 4.3 K/UL (4.8-10.8)
[2019-09-28 08:49] LABS: ANION GAP 8 mmol/L (5-15); BLOOD UREA NITROGEN 31 mg/dL (7-18); CALCIUM 8.6 MG/DL (8.5-10.1); CARBON DIOXIDE 22 MMOL/L (21-32); CHLORIDE 108 MMOL/L (98-107); CREATININE 1.6 MG/DL (0.55-1.30); POTASSIUM 4.1 MMOL/L (3.5-5.1); SODIUM 138 MMOL/L (136-145)
[2019-09-28] MEDS: Docusate 100mg cap ORAL SCH ×3 (08:53→17:36)
[2019-09-28] MEDS: Heparin 5000 units/ml inj SUBQ SCH ×2 (08:55→20:14)
--- NOTE | 2019-09-28 08:55 | Nephrology Progress Note ---
Assessment/Plan Problem List: (1) ROLANDO (acute kidney injury) (2) Severe anemia (3) Severe protein-calorie malnutrition Assessment: BMI 17.2 Assessment (1) ROLANDO (acute kidney injury) (2) Renal failure (ARF), acute on chronic (3) Severe anemia (4) Protein calorie mal nutrition- BMI 17.2 (5) h/o UTI Others: h/o bronchitis h/o abdominal pain and nausea, possibly enteritis ( by CT scan) RA Plan Plan one dose IV Iron Avoid nephrotoxics hydrate- Anemia workup Subjective ROS Limited/Unobtainable: No Constitutional: Reports: malaise, weakness Objective Objective Last 24 Hour Vital Signs Date Time Temp Pulse Resp B/P (MAP) Pulse Ox O2 Delivery O2 Flow Rate FiO2 09/28/19 08:00 97.9 77 18 104/57 (73) 97 09/28/19 04:00 98.8 70 18 102/59 (73) 95 09/28/19 00:00 98.4 85 18 113/61 (78) 95 09/27/19 19:50 99.7 78 20 123/65 (84) 96 09/27/19 19:29 Room Air 09/27/19 16:00 99.7 79 20 128/71 (90) 98 09/27/19 12:00 98.6 68 19 119/65 (83) 98 09/27/19 09:03 82 20 96 Room Air 21 09/27/19 09:00 Room Air Intake and Output 09/27/19 09/28/19 19:00 07:00 Intake Total 1665 ml 825 ml Balance 1665 ml 825 ml Intake Oral 840 ml IV Total 825 ml 825 ml # Voids 3 3 Current Medications Medications (Trade) Dose Ordered Sig/Floyd Route PRN Reason Start Time Stop Time Status Last Admin Dose Admin Albuterol/ Ipratropium (Albuterol/ Ipratropium) 3 ml Q4H PRN HHN Shortness of Breath 09/26/19 23:45 10/01/19 11:44 Dextrose/Sodium Chloride 1,000 ml @ 75 mls/hr [id number] IV 09/26/19 22:30 10/25/19 09:59 09/28/19 00:00 Docusate Sodium (Colace) 100 mg THREE TIMES A DAY ORAL 09/27/19 09:00 10/25/19 17:59 09/27/19 17:24 Heparin Sodium (Porcine) (Heparin 5000 units/ml) 5,000 units EVERY 12 HOURS SUBQ 09/27/19 09:00 10/26/19 20:59 09/27/19 20:05 Hydroxychloroquine Sulfate (Plaquenil) 200 mg DAILY ORAL 09/27/19 09:00 10/26/19 08:59 09/27/19 09:06 Pantoprazole (Protonix) 40 mg EVERY 12 HOURS ORAL 09/27/19 09:00 10/25/19 20:59 09/27/19 20:05 Laboratory Tests 09/28/19 07:10: White Blood Count 4.3L, Red Blood Count 3.11L, Hemoglobin 9.7L, Hematocrit 28.6L , Mean Corpuscular Volume 92, Mean Corpuscular Hemoglobin 31.0, Mean Corpuscular Hemoglobin Concent 33.8, Red Cell Distribution Width 13.1, Platelet Count 283, Mean Platelet Volume 5.2L, Neutrophils (%) (Auto) 66.5, Lymphocytes ( %) (Auto) 23.3, Monocytes (%) (Auto) 7.4, Eosinophils (%) (Auto) 1.7, Basophils (%) (Auto) 1.1, Sodium Level 138, Potassium Level 4.1, Chloride Level 108H, Carbon Dioxide Level 22, Anion Gap 8, Blood Urea Nitrogen 31H, Creatinine 1.6H, Estimat Glomerular Filtration Rate , Glucose Level 85, Calcium Level 8.6 Height (Feet): 5 Height (Inches): 0.00 Weight (Pounds): 88 General Appearance: no apparent distress, lethargic Cardiovascular: normal rate Respiratory/Chest: decreased breath sounds Abdomen: soft Objective no change Isma Unger MD Sep 28, 2019 08:55
--- NOTE | 2019-09-28 09:08 | General Progress Note ---
Assessment/Plan Problem List: (1) Anemia ICD Codes: D64.9 - Anemia, unspecified SNOMED: 439008791 (2) Renal insufficiency ICD Codes: N28.9 - Disorder of kidney and ureter, unspecified SNOMED: 131821181, 488369310 (3) Hyperkalemia ICD Codes: E87.5 - Hyperkalemia SNOMED: 87436527 (4) CKD (chronic kidney disease) ICD Codes: N18.9 - Chronic kidney disease, unspecified SNOMED: 383113025 (5) Emphysema lung ICD Codes: J43.9 - Emphysema, unspecified SNOMED: 78034147 Status: stable, progressing Assessment/Plan: pt diet o2 pulm tx prn neph f/u cbc bmp am dc plan w hh Subjective Constitutional: Reports: weakness Allergies: Coded Allergies: No Known Allergies (Unverified , 10/02/15) All Systems: reviewed and negative except above Subjective calm in bed Objective Last 24 Hour Vital Signs Date Time Temp Pulse Resp B/P (MAP) Pulse Ox O2 Delivery O2 Flow Rate FiO2 09/28/19 08:00 97.9 77 18 104/57 (73) 97 09/28/19 04:00 98.8 70 18 102/59 (73) 95 09/28/19 00:00 98.4 85 18 113/61 (78) 95 09/27/19 19:50 99.7 78 20 123/65 (84) 96 09/27/19 19:29 Room Air 09/27/19 16:00 99.7 79 20 128/71 (90) 98 09/27/19 12:00 98.6 68 19 119/65 (83) 98 Intake and Output 09/27/19 09/28/19 19:00 07:00 Intake Total 1665 ml 825 ml Balance 1665 ml 825 ml Intake Oral 840 ml IV Total 825 ml 825 ml # Voids 3 3 Laboratory Tests 09/28/19 07:10: White Blood Count 4.3L, Red Blood Count 3.11L, Hemoglobin 9.7L, Hematocrit 28.6L , Mean Corpuscular Volume 92, Mean Corpuscular Hemoglobin 31.0, Mean Corpuscular Hemoglobin Concent 33.8, Red Cell Distribution Width 13.1, Platelet Count 283, Mean Platelet Volume 5.2L, Neutrophils (%) (Auto) 66.5, Lymphocytes ( %) (Auto) 23.3, Monocytes (%) (Auto) 7.4, Eosinophils (%) (Auto) 1.7, Basophils (%) (Auto) 1.1, Sodium Level 138, Potassium Level 4.1, Chloride Level 108H, Carbon Dioxide Level 22, Anion Gap 8, Blood Urea Nitrogen 31H, Creatinine 1.6H, Estimat Glomerular Filtration Rate , Glucose Level 85, Calcium Level 8.6 Height (Feet): 5 Height (Inches): 0.00 Weight (Pounds): 88 General Appearance: lethargic EENT: normal ENT inspection Neck: normal alignment Cardiovascular: normal peripheral pulses, normal rate, regular rhythm Respiratory/Chest: chest wall non-tender, lungs clear, normal breath sounds Abdomen: normal bowel sounds, non tender, soft Extremities: normal inspection Edema: no edema noted Arm (L), no edema noted Arm (R), no edema noted Leg (L), no edema noted Leg (R), no edema noted Pedal (L), no edema noted Pedal (R), no edema noted Generalized Neurologic: motor weakness Skin: normal pigmentation, warm/dry Isaak Herrera DO Sep 28, 2019 09:08
[2019-09-28 11:32] VITALS: BP 107/67
--- NOTE | 2019-09-28 12:20 | Pulmonology Progress Note ---
Assessment/Plan Problems: (1) Emphysema lung (2) Renal failure (ARF), acute on chronic (3) Hyperkalemia (4) Severe protein-calorie malnutrition (5) TEGAN (mycobacterium avium-intracellulare) (6) Anemia Assessment/Plan improving check electrolytes respiratory treatment titrate fio2 to sat of 92% dvt prophylaxis CXR reviewed, slight increase in interstitial markings. Subjective ROS Limited/Unobtainable: No Interval Events: doing better Allergies: Coded Allergies: No Known Allergies (Unverified , 10/02/15) Objective Last 24 Hour Vital Signs Date Time Temp Pulse Resp B/P (MAP) Pulse Ox O2 Delivery O2 Flow Rate FiO2 09/28/19 11:32 98.2 96 17 107/67 (80) 97 09/28/19 08:00 97.9 77 18 104/57 (73) 97 09/28/19 04:00 98.8 70 18 102/59 (73) 95 09/28/19 00:00 98.4 85 18 113/61 (78) 95 09/27/19 19:50 99.7 78 20 123/65 (84) 96 09/27/19 19:29 Room Air 09/27/19 16:00 99.7 79 20 128/71 (90) 98 Intake and Output 09/27/19 09/28/19 19:00 07:00 Intake Total 1665 ml 825 ml Balance 1665 ml 825 ml Intake Oral 840 ml IV Total 825 ml 825 ml # Voids 3 3 Objective General Appearance: morbidly obese Lines, tubes and drains: peripheral HEENT: normocephalic, atraumatic Neck: non-tender, normal alignment Respiratory/Chest: chest wall non-tender, rhonchi - right, expiratory wheezing Breasts: no masses Cardiovascular/Chest: normal peripheral pulses Abdomen: normal bowel sounds, non tender, hyperactive bowel sounds Extremities: normal range of motion Laboratory Tests 09/28/19 07:10: White Blood Count 4.3L, Red Blood Count 3.11L, Hemoglobin 9.7L, Hematocrit 28.6L , Mean Corpuscular Volume 92, Mean Corpuscular Hemoglobin 31.0, Mean Corpuscular Hemoglobin Concent 33.8, Red Cell Distribution Width 13.1, Platelet Count 283, Mean Platelet Volume 5.2L, Neutrophils (%) (Auto) 66.5, Lymphocytes ( %) (Auto) 23.3, Monocytes (%) (Auto) 7.4, Eosinophils (%) (Auto) 1.7, Basophils (%) (Auto) 1.1, Sodium Level 138, Potassium Level 4.1, Chloride Level 108H, Carbon Dioxide Level 22, Anion Gap 8, Blood Urea Nitrogen 31H, Creatinine 1.6H, Estimat Glomerular Filtration Rate , Glucose Level 85, Calcium Level 8.6 Current Medications Medications (Trade) Dose Ordered Sig/Floyd Route PRN Reason Start Time Stop Time Status Last Admin Dose Admin Albuterol/ Ipratropium (Albuterol/ Ipratropium) 3 ml Q4H PRN HHN Shortness of Breath 09/26/19 23:45 10/01/19 11:44 Dextrose/Sodium Chloride 1,000 ml @ 75 mls/hr [id number] IV 09/26/19 22:30 10/25/19 09:59 09/28/19 00:00 Docusate Sodium (Colace) 100 mg THREE TIMES A DAY ORAL 09/27/19 09:00 10/25/19 17:59 09/28/19 08:53 Heparin Sodium (Porcine) (Heparin 5000 units/ml) 5,000 units EVERY 12 HOURS SUBQ 09/27/19 09:00 10/26/19 20:59 09/28/19 08:55 Hydroxychloroquine Sulfate (Plaquenil) 200 mg DAILY ORAL 09/27/19 09:00 10/26/19 08:59 09/28/19 08:53 Pantoprazole (Protonix) 40 mg EVERY 12 HOURS ORAL 09/27/19 09:00 10/25/19 20:59 09/28/19 08:53 Stephan Perez MD Sep 28, 2019 12:19
--- NOTE | 2019-09-28 14:41 | NUR ---
CASE MANAGEMENT:DISCHARGE PLANNING PATIENT HAS BE[facility] P: F: CLINICALS FAXED
--- NOTE | 2019-09-28 14:43 | NUR ---
CASE MANAGEMENT:INITIAL REVIEW 09/26/2019 74 YR OLD FEMALE AMBULATORY TO ED PER MD RECOMMENDATION CC;ABNORMAL LABS SI;HYPERKALEMIA. AC/CHR RENAL FAILURE. CKD. 98.2 96 15 138/86 97% ON RA K+ 5.8 BUN 50 CREAT 1.5 IS;KAYEXALATE PO X1 D5W BOLUS X1 INSULIN HUMAN X1 ADMITTED TO MED SURG MED SURG STATUS CASE MANAGEMENT:REVIEW 09/28/2019 SI;RENAL INSUFFICIENCY. HYPERKALEMIA. EMPHYSEMA LUNG. 99.7 96 17 102/59 95% ON RA IS;IVF D5W @ 75 ML/HR DUO NEB HHN Q4 HR PROTONIX PO Q12 HRS PLAQUENIL PO QD MED SURG STATUS DCP;HOME WITH HOME HEALTH
[2019-09-28] MEDS: D5 1/2NS 1,000 ML IV SCH ×2 (14:56)
[2019-09-28 16:00] VITALS: BP 108/62
--- NOTE | 2019-09-28 19:24 | NUR ---
HAND-OFF: Report given to kriss.
--- NOTE | 2019-09-28 19:25 | NUR ---
NURSE NOTES: Received report from GLORIA Paredes. AAO x 4, on room air. [place] speaking. IV site intact and running IVF. No acute distress noted. Bed locked, lowest position, alarm on, side rails up, call light within reach. Will continue to monitor.
[2019-09-28 20:00] VITALS: BP 123/70
[2019-09-29] VITALS: BP 128/61
[2019-09-29] MEDS: D5 1/2NS 1,000 ML IV SCH ×2 (03:35→15:55)
[2019-09-29 04:00] VITALS: BP 126/63
[2019-09-29 07:12] LABS: ANION GAP 8 mmol/L (5-15); BLOOD UREA NITROGEN 34 mg/dL (7-18); CALCIUM 8.4 MG/DL (8.5-10.1); CARBON DIOXIDE 21 MMOL/L (21-32); CHLORIDE 108 MMOL/L (98-107); CREATININE 1.7 MG/DL (0.55-1.30); POTASSIUM 4.1 MMOL/L (3.5-5.1); SODIUM 137 MMOL/L (136-145)
[2019-09-29 07:33] LABS: BASOPHILS % (AUTO) 0.6 % (0.0-2.0); EOSINOPHILS % (AUTO) 0.6 % (0.0-3.0); HEMATOCRIT 26.5 % (37.0-47.0); LYMPHOCYTES % (AUTO) 11.7 % (20.0-45.0); MEAN CORPUSCULAR VOLUME 91 FL (80-99); NEUTROPHILS % (AUTO) 81.2 % (45.0-75.0); PLATELET COUNT 262 K/UL (150-450); RED BLOOD COUNT 2.89 M/UL (4.20-5.40); WHITE BLOOD COUNT 8.3 K/UL (4.8-10.8)
--- NOTE | 2019-09-29 07:37 | NUR ---
HAND-OFF: Report given to GLORIA Cash.
--- NOTE | 2019-09-29 07:38 | NUR ---
NURSE NOTES: Received patient in bed, awake, AAOx4. Not in respiratory/cardiac distress. Denies any pain or discomfort @ this time. IV is intact, no s/s of infiltration with IVF. Call light and personnel items within reach. Bed is in lowest position and locked. Bed alarm is on. Will continue plan of care.
[2019-09-29 08:00] VITALS: BP 116/73
[2019-09-29] MEDS: Docusate 100mg cap ORAL SCH ×3 (08:37→17:37)
[2019-09-29] MEDS: Heparin 5000 units/ml inj SUBQ SCH ×2 (08:38→21:48)
--- NOTE | 2019-09-29 10:40 | NUR ---
CASE MANAGEMENT:NOTE COMMUNICATION WITH DR GUPTA IN RE TO DC HOME TODAY WITH HOME HEALTH PER MD, WILL FOLLOW UP WITH PATIENT STATUS AT NOON BEFORE DECIDING ON DC
[2019-09-29 12:00] VITALS: BP 118/60
--- NOTE | 2019-09-29 12:02 | Pulmonology Progress Note ---
Assessment/Plan Problems: (1) Emphysema lung (2) Renal failure (ARF), acute on chronic (3) Hyperkalemia (4) Severe protein-calorie malnutrition (5) TEGAN (mycobacterium avium-intracellulare) (6) Anemia Assessment/Plan all reviewed improving check electrolytes respiratory treatment titrate fio2 to sat of 92% dvt prophylaxis ok to go home Subjective ROS Limited/Unobtainable: No Constitutional: Reports: no symptoms Allergies: Coded Allergies: No Known Allergies (Unverified , 10/02/15) Objective Last 24 Hour Vital Signs Date Time Temp Pulse Resp B/P (MAP) Pulse Ox O2 Delivery O2 Flow Rate FiO2 09/29/19 09:00 Room Air 09/29/19 08:00 98.3 93 20 116/73 (87) 96 09/29/19 04:00 99.4 77 20 126/63 (84) 96 09/29/19 00:00 99.6 78 20 128/61 (83) 95 09/28/19 20:00 99.5 77 18 123/70 (87) 95 09/28/19 19:52 Room Air 09/28/19 16:00 98.1 79 18 108/62 (77) 98 Intake and Output 09/28/19 09/29/19 19:00 07:00 Intake Total 825 ml 870 ml Balance 825 ml 870 ml Intake Oral 750 ml 120 ml IV Total 75 ml 750 ml # Voids 3 # Bowel Movements 1 Objective General Appearance: morbidly obese Lines, tubes and drains: peripheral HEENT: normocephalic, atraumatic Neck: non-tender, normal alignment Respiratory/Chest: chest wall non-tender, rhonchi - right, expiratory wheezing Breasts: no masses Cardiovascular/Chest: normal peripheral pulses Abdomen: normal bowel sounds, non tender, hyperactive bowel sounds Extremities: normal range of motion Laboratory Tests 09/29/19 06:00: White Blood Count 8.3#, Red Blood Count 2.89L, Hemoglobin 9.0L, Hematocrit 26.5L , Mean Corpuscular Volume 91, Mean Corpuscular Hemoglobin 31.0, Mean Corpuscular Hemoglobin Concent 33.9, Red Cell Distribution Width 13.0, Platelet Count 262, Mean Platelet Volume 5.4L, Neutrophils (%) (Auto) 81.2H, Lymphocytes (%) (Auto) 11.7L, Monocytes (%) (Auto) 6.0, Eosinophils (%) (Auto) 0.6, Basophils (%) (Auto) 0.6, Sodium Level 137, Potassium Level 4.1, Chloride Level 108H, Carbon Dioxide Level 21, Anion Gap 8, Blood Urea Nitrogen 34H, Creatinine 1.7H, Estimat Glomerular Filtration Rate , Glucose Level 104, Calcium Level 8.4L Current Medications Medications (Trade) Dose Ordered Sig/Floyd Route PRN Reason Start Time Stop Time Status Last Admin Dose Admin Albuterol/ Ipratropium (Albuterol/ Ipratropium) 3 ml Q4H PRN HHN Shortness of Breath 09/26/19 23:45 10/01/19 11:44 Dextrose/Sodium Chloride 1,000 ml @ 75 mls/hr [id number] IV 09/26/19 22:30 10/25/19 09:59 09/29/19 03:35 Docusate Sodium (Colace) 100 mg THREE TIMES A DAY ORAL 09/27/19 09:00 10/25/19 17:59 09/29/19 08:37 Heparin Sodium (Porcine) (Heparin 5000 units/ml) 5,000 units EVERY 12 HOURS SUBQ 09/27/19 09:00 10/26/19 20:59 09/29/19 08:38 Hydroxychloroquine Sulfate (Plaquenil) 200 mg DAILY ORAL 09/27/19 09:00 10/26/19 08:59 09/29/19 08:37 Pantoprazole (Protonix) 40 mg EVERY 12 HOURS ORAL 09/27/19 09:00 10/25/19 20:59 09/29/19 08:37 Stephan Perez MD Sep 29, 2019 12:02
--- NOTE | 2019-09-29 13:52 | General Progress Note ---
Assessment/Plan Problem List: (1) Anemia ICD Codes: D64.9 - Anemia, unspecified SNOMED: 261520494 (2) Renal insufficiency ICD Codes: N28.9 - Disorder of kidney and ureter, unspecified SNOMED: 305582453, 910240322 (3) Hyperkalemia ICD Codes: E87.5 - Hyperkalemia SNOMED: 10849015 (4) CKD (chronic kidney disease) ICD Codes: N18.9 - Chronic kidney disease, unspecified SNOMED: 561049118 (5) Emphysema lung ICD Codes: J43.9 - Emphysema, unspecified SNOMED: 47387046 Status: stable, progressing Assessment/Plan: pt diet o2 pulm tx prn neph f/u cbc bmp am gi heme eval Subjective Constitutional: Reports: weakness Allergies: Coded Allergies: No Known Allergies (Unverified , 10/02/15) All Systems: reviewed and negative except above Subjective calm in bed Objective Last 24 Hour Vital Signs Date Time Temp Pulse Resp B/P (MAP) Pulse Ox O2 Delivery O2 Flow Rate FiO2 09/29/19 12:00 99.1 75 20 118/60 (79) 95 09/29/19 09:00 Room Air 09/29/19 08:00 98.3 93 20 116/73 (87) 96 09/29/19 04:00 99.4 77 20 126/63 (84) 96 09/29/19 00:00 99.6 78 20 128/61 (83) 95 09/28/19 20:00 99.5 77 18 123/70 (87) 95 09/28/19 19:52 Room Air 09/28/19 16:00 98.1 79 18 108/62 (77) 98 Intake and Output 09/28/19 09/29/19 19:00 07:00 Intake Total 825 ml 870 ml Balance 825 ml 870 ml Intake Oral 750 ml 120 ml IV Total 75 ml 750 ml # Voids 3 # Bowel Movements 1 Laboratory Tests 09/29/19 06:00: White Blood Count 8.3#, Red Blood Count 2.89L, Hemoglobin 9.0L, Hematocrit 26.5L , Mean Corpuscular Volume 91, Mean Corpuscular Hemoglobin 31.0, Mean Corpuscular Hemoglobin Concent 33.9, Red Cell Distribution Width 13.0, Platelet Count 262, Mean Platelet Volume 5.4L, Neutrophils (%) (Auto) 81.2H, Lymphocytes (%) (Auto) 11.7L, Monocytes (%) (Auto) 6.0, Eosinophils (%) (Auto) 0.6, Basophils (%) (Auto) 0.6, Sodium Level 137, Potassium Level 4.1, Chloride Level 108H, Carbon Dioxide Level 21, Anion Gap 8, Blood Urea Nitrogen 34H, Creatinine 1.7H, Estimat Glomerular Filtration Rate , Glucose Level 104, Calcium Level 8.4L Height (Feet): 5 Height (Inches): 0.00 Weight (Pounds): 88 General Appearance: lethargic EENT: normal ENT inspection Neck: normal alignment Cardiovascular: normal peripheral pulses, normal rate, regular rhythm Respiratory/Chest: chest wall non-tender, lungs clear, normal breath sounds Abdomen: normal bowel sounds, non tender, soft Extremities: normal inspection Edema: no edema noted Arm (L), no edema noted Arm (R), no edema noted Leg (L), no edema noted Leg (R), no edema noted Pedal (L), no edema noted Pedal (R), no edema noted Generalized Neurologic: motor weakness Skin: normal pigmentation, warm/dry Isaak Herrera DO Sep 29, 2019 13:52
--- NOTE | 2019-09-29 13:57 | NUR ---
CASE MANAGEMENT:REVIEW SI;RENAL INSUFFICIENCY. CKD. EMPHYSEMA LUNG. ANEMIA. 99.6 93 20 128/61 65% ON RA H/H 9.0/26.5 BUN 34 CREAT 1.7 CA 8.4 IS;PLAQUENIL PO QD PROTONIX PO Q12 HRS DUO NEB HHN Q4 HRS IVF D5W @ 75 ML/HR MED SURG STATUS DCP;HOME WITH [place] [facility]
[2019-09-29 16:00] VITALS: BP 128/74
--- NOTE | 2019-09-29 16:26 | NUR ---
CASE MANAGEMENT:[facility] CONFIRMED ACCEPTANCE AGENCY WILL CONTACT PATIENT TO SCHEDULE INITIAL HOME VISIT UPON PATIENTS DISCHARGE
--- NOTE | 2019-09-29 17:09 | Nephrology Progress Note ---
Assessment/Plan Problem List: (1) ROLANDO (acute kidney injury) (2) CKD (chronic kidney disease) (3) Severe anemia (4) Severe protein-calorie malnutrition Assessment: BMI 17.2 Assessment (1) ROLANDO (acute kidney injury) (2) Renal failure (ARF), acute on chronic (3) Severe anemia (4) Protein calorie mal nutrition- BMI 17.2 (5) h/o UTI Others: h/o bronchitis h/o abdominal pain and nausea, possibly enteritis ( by CT scan) RA Plan Plan one dose IV Iron Avoid nephrotoxics hydrate- Anemia workup Subjective ROS Limited/Unobtainable: No Constitutional: Reports: malaise, weakness Objective Objective Last 24 Hour Vital Signs Date Time Temp Pulse Resp B/P (MAP) Pulse Ox O2 Delivery O2 Flow Rate FiO2 09/29/19 16:00 98.1 79 20 128/74 (92) 97 09/29/19 12:00 99.1 75 20 118/60 (79) 95 09/29/19 09:00 Room Air 09/29/19 08:00 98.3 93 20 116/73 (87) 96 09/29/19 04:00 99.4 77 20 126/63 (84) 96 09/29/19 00:00 99.6 78 20 128/61 (83) 95 09/28/19 20:00 99.5 77 18 123/70 (87) 95 09/28/19 19:52 Room Air Intake and Output 09/28/19 09/29/19 19:00 07:00 Intake Total 825 ml 870 ml Balance 825 ml 870 ml Intake Oral 750 ml 120 ml IV Total 75 ml 750 ml # Voids 3 # Bowel Movements 1 Laboratory Tests 09/29/19 06:00: White Blood Count 8.3#, Red Blood Count 2.89L, Hemoglobin 9.0L, Hematocrit 26.5L , Mean Corpuscular Volume 91, Mean Corpuscular Hemoglobin 31.0, Mean Corpuscular Hemoglobin Concent 33.9, Red Cell Distribution Width 13.0, Platelet Count 262, Mean Platelet Volume 5.4L, Neutrophils (%) (Auto) 81.2H, Lymphocytes (%) (Auto) 11.7L, Monocytes (%) (Auto) 6.0, Eosinophils (%) (Auto) 0.6, Basophils (%) (Auto) 0.6, Sodium Level 137, Potassium Level 4.1, Chloride Level 108H, Carbon Dioxide Level 21, Anion Gap 8, Blood Urea Nitrogen 34H, Creatinine 1.7H, Estimat Glomerular Filtration Rate , Glucose Level 104, Calcium Level 8.4L Height (Feet): 5 Height (Inches): 0.00 Weight (Pounds): 88 General Appearance: no apparent distress Objective no change Isma Unger MD Sep 29, 2019 17:09
--- NOTE | 2019-09-29 18:15 | Consultation ---
DATE OF CONSULTATION: 09/29/2019 CHIEF COMPLAINT: Anemia. HISTORY OF PRESENT ILLNESS: This is a very pleasant 74-year-old female known to me from prior admissions, actually last time I saw her was back in April 2019. She was admitted at that time, was found to be anemic. Stool OB came back negative. She also carries diagnosis of possible multiple myeloma, renal insufficiency. She was readmitted again, was found to be anemic again. PAST MEDICAL HISTORY: 1. Osteoporosis. 2. Rheumatoid arthritis. 3. Pulmonary MAC. 4. Multiple drug-resistant pneumonia. 5. Anemia. 6. Possible multiple myeloma. ALLERGIES: No known allergies. MEDICATIONS: Please see medication reconciliation list. FAMILY HISTORY: Noncontributory. REVIEW OF SYSTEMS: A 10-point review of systems was performed and pertinent positives in HPI. PHYSICAL EXAMINATION: GENERAL: This is a well-developed female in no acute distress. VITAL SIGNS: Temperature is 99.1, pulse 75, respirations 20, blood pressure is 118/60. HEENT: Normocephalic and atraumatic. Mild pale conjunctivae. NECK: Supple. No evidence of obvious lymphadenopathy. CARDIOVASCULAR: Regular rhythm. Plus S1 and S2. LUNGS: Decreased breath sounds bilaterally based on the supine exam. ABDOMEN: Soft, nontender. No rebound. No guarding. No peritoneal sign. EXTREMITIES: No cyanosis, no clubbing, and no edema. LABORATORY AND DIAGNOSTIC DATA: Most recent white count is 8.3, hemoglobin 9, hematocrit 26, and platelet count is 262. Chem 7, BUN 34, creatinine is 1.7. Stool for OB came back negative. ASSESSMENT AND PLAN: This is a 74-year-old female with anemia most probably secondary to either multiple myeloma, chronic disease, or renal insufficiency. Reviewing the chart showed back in April, she had two negative stool OB. Now here in this admission, she has one negative stool OB, so I doubt that she does not have any active GI bleeding anemia. At one point, she needs to get an endoscopy and colonoscopy. Unfortunately, she is not compliant last time when she was discharged back in April. She never followed with us to get a colonoscopy done, so we recommend the patient to get it here, but she does not want do it and she wants to go home, so the patient was re-emphasized again that she needs to have the procedure done and she needs to get follow up as an outpatient. I want to thank, Dr. Isaak Herrera, for this kind referral. Kleber Skaggs M.D. DR: Xiang JOB#: [id number] CC: Isaak Herrera D.O.
--- NOTE | 2019-09-29 18:57 | NUR ---
NURSE NOTES: Patient had bowel movement early this morning before stool OB order. Patient is aware of collecting stool for OB.
--- NOTE | 2019-09-29 19:04 | NUR ---
HAND-OFF: Report given to
--- NOTE | 2019-09-29 19:35 | NUR ---
NURSE NOTES: Received patient comfortably sleeping, no SOB noted.
[2019-09-29 20:39] VITALS: BP 128/53
[2019-09-30] VITALS: BP 121/64
[2019-09-30 04:00] VITALS: BP 118/61
[2019-09-30] MEDS: D5 1/2NS 1,000 ML IV SCH ×2 (06:30→14:05)
--- NOTE | 2019-09-30 07:26 | NUR ---
HAND-OFF: Report given to Shreya Oneill RN.
[2019-09-30 08:00] VITALS: BP 103/55
[2019-09-30 08:16] LABS: BASOPHILS % (AUTO) 0.5 % (0.0-2.0); EOSINOPHILS % (AUTO) 1.1 % (0.0-3.0); HEMATOCRIT 27.6 % (37.0-47.0); HEMOGLOBIN 9.3 G/DL (12.0-16.0); LYMPHOCYTES % (AUTO) 16.9 % (20.0-45.0); MEAN CORPUSCULAR VOLUME 91 FL (80-99); MONOCYTES % (AUTO) 6.3 % (1.0-10.0); NEUTROPHILS % (AUTO) 75.3 % (45.0-75.0); PLATELET COUNT 281 K/UL (150-450); RED BLOOD COUNT 3.04 M/UL (4.20-5.40); RED CELL DISTRIBUTION WIDTH 13.1 % (11.6-14.8); WHITE BLOOD COUNT 7.1 K/UL (4.8-10.8)
[2019-09-30] MEDS: Docusate 100mg cap ORAL SCH ×3 (08:46→17:40)
[2019-09-30] MEDS: Heparin 5000 units/ml inj SUBQ SCH (08:47)
[2019-09-30 08:48] LABS: ANION GAP 11 mmol/L (5-15); BLOOD UREA NITROGEN 40 mg/dL (7-18); CALCIUM 8.8 MG/DL (8.5-10.1); CARBON DIOXIDE 20 MMOL/L (21-32); CHLORIDE 108 MMOL/L (98-107); CREATININE 1.9 MG/DL (0.55-1.30); SODIUM 139 MMOL/L (136-145)
[2019-09-30 09:29] LABS: % IRON SATURATION 11 % (15-50); IRON 22 ug/dL (50-175); TOTAL IRON BINDING CAPACITY 206 ug/dL (250-450)
--- NOTE | 2019-09-30 10:37 | Consultation ---
History of Present Illness General Chief Complaint: Abnormal Labs Referring physician: dr Herrera Reason for Consultation: hx of bronchtiis, hx of Mycobacterim PNA Present Illness Allergies: Coded Allergies: No Known Allergies (Unverified , 10/02/15) Medication History Scheduled Hydroxychloroquine Sulfate (Hydroxychloroquine Sulfate), 200 MG PO DAILY, ( Reported) Scheduled PRN Ibuprofen* (Advil*), 200 MG ORAL Q6HR PRN for Mild Pain/Temp > 100.5, (Reported) Discontinued Medications Aspirin* (Aspir 81*), 81 MG ORAL DAILY, (Reported) Discontinued Reason: Pt stopped taking med Calcium Carbonate (Calcium), 500 MG PO DAILY, (Reported) Discontinued Reason: Pt stopped taking med Calcium Carbonate/Vitamin D3 (Calcium + Vitamin D Tablet), 1 EACH PO BID, ( Reported) Discontinued Reason: Pt stopped taking med Multivits-Min/Iron/FA/Lutein (Centrum Silver Women Tablet), 1 EACH PO DAILY, ( Reported) Discontinued Reason: Pt stopped taking med Patient History Healthcare decision maker Resuscitation status Full Code Advanced Directive on File Physical Exam Last 24 Hour Vital Signs Date Time Temp Pulse Resp B/P (MAP) Pulse Ox O2 Delivery O2 Flow Rate FiO2 09/30/19 09:00 Room Air 09/30/19 08:00 98.1 82 18 103/55 (71) 96 09/30/19 04:00 98.5 86 18 118/61 (80) 96 09/30/19 00:00 99.6 82 18 121/64 (83) 92 09/29/19 21:00 Room Air 09/29/19 20:39 99.6 84 18 128/53 (78) 95 09/29/19 16:00 98.1 79 20 128/74 (92) 97 09/29/19 12:00 99.1 75 20 118/60 (79) 95 Intake and Output 09/29/19 09/30/19 19:00 07:00 Intake Total 1425 ml 795 ml Balance 1425 ml 795 ml Intake Oral 600 ml 120 ml IV Total 825 ml 675 ml # Voids 3 2 # Bowel Movements 1 Laboratory Tests Test 09/30/19 07:10 White Blood Count 7.1 K/UL (4.8-10.8) Red Blood Count 3.04 M/UL (4.20-5.40) L Hemoglobin 9.3 G/DL (12.0-16.0) L Hematocrit 27.6 % (37.0-47.0) L Mean Corpuscular Volume 91 FL (80-99) Mean Corpuscular Hemoglobin 30.5 PG (27.0-31.0) Mean Corpuscular Hemoglobin Concent 33.6 G/DL (32.0-36.0) Red Cell Distribution Width 13.1 % (11.6-14.8) Platelet Count 281 K/UL (150-450) Mean Platelet Volume 4.9 FL (6.5-10.1) L Neutrophils (%) (Auto) 75.3 % (45.0-75.0) H Lymphocytes (%) (Auto) 16.9 % (20.0-45.0) L Monocytes (%) (Auto) 6.3 % (1.0-10.0) Eosinophils (%) (Auto) 1.1 % (0.0-3.0) Basophils (%) (Auto) 0.5 % (0.0-2.0) Sodium Level 139 MMOL/L (136-145) Potassium Level 4.0 MMOL/L (3.5-5.1) Chloride Level 108 MMOL/L (98-107) H Carbon Dioxide Level 20 MMOL/L (21-32) L Anion Gap 11 mmol/L (5-15) Blood Urea Nitrogen 40 mg/dL (7-18) H Creatinine 1.9 MG/DL (0.55-1.30) H Estimat Glomerular Filtration Rate 25.7 mL/min (>60) Glucose Level 88 MG/DL (74-106) Calcium Level 8.8 MG/DL (8.5-10.1) Iron Level 22 ug/dL (50-175) L Total Iron Binding Capacity 206 ug/dL (250-450) L Percent Iron Saturation 11 % (15-50) L Unsaturated Iron Binding 184 ug/dL (112-346) Vitamin B12 Level 452 PG/ML (193-986) Folate 17.9 NG/ML (8.6-58.9) Height (Feet): 5 Height (Inches): 0.00 Weight (Pounds): 92 Medications Current Medications Medications (Trade) Dose Ordered Sig/Floyd Route PRN Reason Start Time Stop Time Status Last Admin Dose Admin Albuterol/ Ipratropium (Albuterol/ Ipratropium) 3 ml Q4H PRN HHN Shortness of Breath 09/26/19 23:45 10/01/19 11:44 Dextrose/Sodium Chloride 1,000 ml @ 75 mls/hr [id number] IV 09/26/19 22:30 10/25/19 09:59 09/29/19 15:55 Docusate Sodium (Colace) 100 mg THREE TIMES A DAY ORAL 09/27/19 09:00 10/25/19 17:59 09/30/19 08:46 Heparin Sodium (Porcine) (Heparin 5000 units/ml) 5,000 units EVERY 12 HOURS SUBQ 09/27/19 09:00 10/26/19 20:59 09/30/19 08:47 Hydroxychloroquine Sulfate (Plaquenil) 200 mg DAILY ORAL 09/27/19 09:00 10/26/19 08:59 09/30/19 08:46 Pantoprazole (Protonix) 40 mg EVERY 12 HOURS ORAL 09/27/19 09:00 10/25/19 20:59 09/30/19 08:46 Assessment/Plan Assessment/Plan: Hematology/Oncology Consultation Requesting MD: Isaak Herrera Date of Service: 09/30/2019 Reason for consultation: Leukopenia and Anemia HPI: Asked by Dr. Herrera to eval. This is a 74 year-old female well known to me from prior admission, who lives at home, complaining of recent headache, and was recently admitted for abdominal pain, n/vt. Hematology/Oncology was consulted for Anemia and for elevated k and peaked t waves. Have seen her before and she had similar findings , and send for a flow which was negative, no bone marrow biopsy was done, hep and hiv neg, as was abd us. Dr. Skaggs was consulted as well, recs noted in addition to pulm, renal PAST MEDICAL HISTORY: Includes rheumatoid arthritis and neuropathy. PAST SURGICAL HISTORY: None. MEDICATIONS: Include cefepime, vancomycin, heparin, Zofran, morphine, Tylenol, and albuterol. ALLERGIES: Denies. SOCIAL HISTORY: No smoking. No alcohol. No intravenous drug abuse. FAMILY HISTORY: Noncontributory. PHYSICAL EXAMINATION: GENERAL: Calm in bed, oriented x3, slight short of breath. VITAL SIGNS: reviewed CARDIOVASCULAR: No murmur. LUNGS: Poor air exchange. ABDOMEN: Bowel sounds distant. EXTREMITIES: No cyanosis or edema. NEUROLOGIC: The patient moves all extremities, slightly weak. LABORATORY AND DIAGNOSTIC DATA: 05/2019 white count 3.6, hemoglobin and hematocrit 8.6/29, and platelets 173. 2/08/07: wbc 7, hgb 9, plt 281k ASSESSMENT/Recs # Monoclonal gammopathy noted on both IGG >3000, and immunofixation of the serum , cocerning for multiple myeloma. with LEUKOPENIA, decreased white blood cell count, (leukopenia) - wbc under 4k, could also be related to infection v multiple myeloma --> continue antibiotics with ID service, appreciate recs --> medications have been reviewed --> hepatitis and hiv in past negative --> imaging of abdomen reviewed --> Prior igg was 3961--> 2453 and spep was anbnormal concerning for myeloma --> immunofixation of prior visit ++ for monoclonal protein with lambda light chain specificity --> consider repeat igg # Anemia of chronic disease due to underlying chronic medical issues, multifactorial --> Anemia workup has been ordered from pior adm, and reviewed, ferritin is >100 --> No evidence of hemolysis is noted, peripheral smear has been reviewed --> Hgb goal >7. Transfuse prn. --> Epogen or iron at this time is not particularly indicated --> Medications have been reviewed --> egd/colo per gi on prn basis # Abdominal pain, hx enteritis --> on abx --> O2 and pulmonary treatment. # Peaked t waves and elev k --> per Dr. Unger # Headache, chronic # Recent tristan # Dvt ppx heparin sq The timing of this note does not necessarily reflect the time of the patient was seen. Greatly appreciate consultation! Emiliano Mccray MD Sep 30, 2019 10:37
--- NOTE | 2019-09-30 11:24 | Nephrology Progress Note ---
Assessment/Plan Problem List: (1) ROLANDO (acute kidney injury) (2) CKD (chronic kidney disease) (3) Severe anemia (4) Severe protein-calorie malnutrition Assessment: BMI 17.2 Assessment (1) ROLANDO (acute kidney injury) (2) Renal failure (ARF), acute on chronic (3) Severe anemia (4) Protein calorie mal nutrition- BMI 17.2 (5) h/o UTI Others: h/o bronchitis h/o abdominal pain and nausea, possibly enteritis ( by CT scan) RA Plan another dose IV Iron Avoid nephrotoxics hydrate- Anemia workup Ok to DC from renal stand Subjective ROS Limited/Unobtainable: No Constitutional: Reports: malaise, weakness Objective Objective Last 24 Hour Vital Signs Date Time Temp Pulse Resp B/P (MAP) Pulse Ox O2 Delivery O2 Flow Rate FiO2 09/30/19 09:00 Room Air 09/30/19 08:00 98.1 82 18 103/55 (71) 96 09/30/19 04:00 98.5 86 18 118/61 (80) 96 09/30/19 00:00 99.6 82 18 121/64 (83) 92 09/29/19 21:00 Room Air 09/29/19 20:39 99.6 84 18 128/53 (78) 95 09/29/19 16:00 98.1 79 20 128/74 (92) 97 09/29/19 12:00 99.1 75 20 118/60 (79) 95 Intake and Output 09/29/19 09/30/19 19:00 07:00 Intake Total 1425 ml 795 ml Balance 1425 ml 795 ml Intake Oral 600 ml 120 ml IV Total 825 ml 675 ml # Voids 3 2 # Bowel Movements 1 Laboratory Tests 09/30/19 07:10: White Blood Count 7.1, Red Blood Count 3.04L, Hemoglobin 9.3L, Hematocrit 27.6L , Mean Corpuscular Volume 91, Mean Corpuscular Hemoglobin 30.5, Mean Corpuscular Hemoglobin Concent 33.6, Red Cell Distribution Width 13.1, Platelet Count 281, Mean Platelet Volume 4.9L, Neutrophils (%) (Auto) 75.3H, Lymphocytes (%) (Auto) 16.9L, Monocytes (%) (Auto) 6.3, Eosinophils (%) (Auto) 1.1, Basophils (%) (Auto) 0.5, Sodium Level 139, Potassium Level 4.0, Chloride Level 108H, Carbon Dioxide Level 20L, Anion Gap 11, Blood Urea Nitrogen 40H, Creatinine 1.9H, Estimat Glomerular Filtration Rate 25.7, Glucose Level 88, Calcium Level 8.8, Iron Level 22L, Total Iron Binding Capacity 206L, Percent Iron Saturation 11L, Unsaturated Iron Binding 184, Vitamin B12 Level 452, Folate 17.9, Immunoglobulin G [Pending] Height (Feet): 5 Height (Inches): 0.00 Weight (Pounds): 92 General Appearance: no apparent distress Objective no change Isma Unger MD Sep 30, 2019 11:24
--- NOTE | 2019-09-30 11:32 | GI Progress Note ---
Assessment/Plan Problems: (1) Anemia ICD Codes: D64.9 - Anemia, unspecified SNOMED: 685675998 (2) Severe protein-calorie malnutrition ICD Codes: E43 - Unspecified severe protein-calorie malnutrition SNOMED: 920466135, 790359593, 140972210 Status: stable Status Narrative Discussed with Dr. Skaggs. Assessment/Plan This is a 74-year-old female with anemia most probably secondary to either multiple myeloma, chronic disease, or renal insufficiency. No plans for GI procedures at this time, patient refused as inpatient. follow up OB stool to evaluate for GI bleed recommend patient have outpatient colonoscopy electrolyte correction zofran prn prn transfusions ppi dc planning The patient was seen and examined at bedside and all new and available data was reviewed in the patients chart. I agree with the above findings, impression and plan. (Patient seen earlier today. Signature stamp does not reflect patient encounter time.). - Kleber Skaggs MD Subjective Gastrointestinal/Abdominal: Reports: no symptoms Objective Last 24 Hour Vital Signs Date Time Temp Pulse Resp B/P (MAP) Pulse Ox O2 Delivery O2 Flow Rate FiO2 09/30/19 09:00 Room Air 09/30/19 08:00 98.1 82 18 103/55 (71) 96 09/30/19 04:00 98.5 86 18 118/61 (80) 96 09/30/19 00:00 99.6 82 18 121/64 (83) 92 09/29/19 21:00 Room Air 09/29/19 20:39 99.6 84 18 128/53 (78) 95 09/29/19 16:00 98.1 79 20 128/74 (92) 97 09/29/19 12:00 99.1 75 20 118/60 (79) 95 Intake and Output 09/29/19 09/30/19 19:00 07:00 Intake Total 1425 ml 795 ml Balance 1425 ml 795 ml Intake Oral 600 ml 120 ml IV Total 825 ml 675 ml # Voids 3 2 # Bowel Movements 1 Laboratory Tests Test 09/30/19 07:10 White Blood Count 7.1 K/UL (4.8-10.8) Red Blood Count 3.04 M/UL (4.20-5.40) L Hemoglobin 9.3 G/DL (12.0-16.0) L Hematocrit 27.6 % (37.0-47.0) L Mean Corpuscular Volume 91 FL (80-99) Mean Corpuscular Hemoglobin 30.5 PG (27.0-31.0) Mean Corpuscular Hemoglobin Concent 33.6 G/DL (32.0-36.0) Red Cell Distribution Width 13.1 % (11.6-14.8) Platelet Count 281 K/UL (150-450) Mean Platelet Volume 4.9 FL (6.5-10.1) L Neutrophils (%) (Auto) 75.3 % (45.0-75.0) H Lymphocytes (%) (Auto) 16.9 % (20.0-45.0) L Monocytes (%) (Auto) 6.3 % (1.0-10.0) Eosinophils (%) (Auto) 1.1 % (0.0-3.0) Basophils (%) (Auto) 0.5 % (0.0-2.0) Sodium Level 139 MMOL/L (136-145) Potassium Level 4.0 MMOL/L (3.5-5.1) Chloride Level 108 MMOL/L (98-107) H Carbon Dioxide Level 20 MMOL/L (21-32) L Anion Gap 11 mmol/L (5-15) Blood Urea Nitrogen 40 mg/dL (7-18) H Creatinine 1.9 MG/DL (0.55-1.30) H Estimat Glomerular Filtration Rate 25.7 mL/min (>60) Glucose Level 88 MG/DL (74-106) Calcium Level 8.8 MG/DL (8.5-10.1) Iron Level 22 ug/dL (50-175) L Total Iron Binding Capacity 206 ug/dL (250-450) L Percent Iron Saturation 11 % (15-50) L Unsaturated Iron Binding 184 ug/dL (112-346) Vitamin B12 Level 452 PG/ML (193-986) Folate 17.9 NG/ML (8.6-58.9) Immunoglobulin G Pending Height (Feet): 5 Height (Inches): 0.00 Weight (Pounds): 92 General Appearance: WD/WN, no apparent distress, alert Cardiovascular: normal rate Respiratory/Chest: normal breath sounds, no respiratory distress Abdominal Exam: normal bowel sounds, non tender, soft Extremities: normal range of motion, non-tender Eunice Jolley NP Sep 30, 2019 11:31
[2019-09-30 12:00] VITALS: BP 105/61
[2019-09-30] MEDS ORDERED: Iron Sucrose 200 MG in NS 110 ML IV ONE (13:00)
--- NOTE | 2019-09-30 13:16 | Pulmonology Progress Note ---
Assessment/Plan Problems: (1) Emphysema lung (2) Renal failure (ARF), acute on chronic (3) Hyperkalemia (4) Severe protein-calorie malnutrition (5) TEGAN (mycobacterium avium-intracellulare) (6) Anemia Assessment/Plan on Venofer for iron deficiency all reviewed improving check electrolytes respiratory treatment titrate fio2 to sat of 92% dvt prophylaxis Subjective ROS Limited/Unobtainable: No Interval Events: doing better Allergies: Coded Allergies: No Known Allergies (Unverified , 10/02/15) Objective Last 24 Hour Vital Signs Date Time Temp Pulse Resp B/P (MAP) Pulse Ox O2 Delivery O2 Flow Rate FiO2 09/30/19 12:00 97.7 75 18 105/61 (76) 96 09/30/19 09:00 Room Air 09/30/19 08:00 98.1 82 18 103/55 (71) 96 09/30/19 04:00 98.5 86 18 118/61 (80) 96 09/30/19 00:00 99.6 82 18 121/64 (83) 92 09/29/19 21:00 Room Air 09/29/19 20:39 99.6 84 18 128/53 (78) 95 09/29/19 16:00 98.1 79 20 128/74 (92) 97 Intake and Output 09/29/19 09/30/19 19:00 07:00 Intake Total 1425 ml 795 ml Balance 1425 ml 795 ml Intake Oral 600 ml 120 ml IV Total 825 ml 675 ml # Voids 3 2 # Bowel Movements 1 Objective General Appearance: morbidly obese Lines, tubes and drains: peripheral HEENT: normocephalic, atraumatic Neck: non-tender, normal alignment Respiratory/Chest: chest wall non-tender, rhonchi - right, expiratory wheezing Breasts: no masses Cardiovascular/Chest: normal peripheral pulses Abdomen: normal bowel sounds, non tender, hyperactive bowel sounds Extremities: normal range of motion Laboratory Tests 09/30/19 07:10: White Blood Count 7.1, Red Blood Count 3.04L, Hemoglobin 9.3L, Hematocrit 27.6L , Mean Corpuscular Volume 91, Mean Corpuscular Hemoglobin 30.5, Mean Corpuscular Hemoglobin Concent 33.6, Red Cell Distribution Width 13.1, Platelet Count 281, Mean Platelet Volume 4.9L, Neutrophils (%) (Auto) 75.3H, Lymphocytes (%) (Auto) 16.9L, Monocytes (%) (Auto) 6.3, Eosinophils (%) (Auto) 1.1, Basophils (%) (Auto) 0.5, Sodium Level 139, Potassium Level 4.0, Chloride Level 108H, Carbon Dioxide Level 20L, Anion Gap 11, Blood Urea Nitrogen 40H, Creatinine 1.9H, Estimat Glomerular Filtration Rate 25.7, Glucose Level 88, Calcium Level 8.8, Iron Level 22L, Total Iron Binding Capacity 206L, Percent Iron Saturation 11L, Unsaturated Iron Binding 184, Vitamin B12 Level 452, Folate 17.9, Immunoglobulin G [Pending] Current Medications Medications (Trade) Dose Ordered Sig/Floyd Route PRN Reason Start Time Stop Time Status Last Admin Dose Admin Albuterol/ Ipratropium (Albuterol/ Ipratropium) 3 ml Q4H PRN HHN Shortness of Breath 09/26/19 23:45 10/01/19 11:44 Dextrose/Sodium Chloride 1,000 ml @ 75 mls/hr [id number] IV 09/26/19 22:30 10/25/19 09:59 09/29/19 15:55 Docusate Sodium (Colace) 100 mg THREE TIMES A DAY ORAL 09/27/19 09:00 10/25/19 17:59 09/30/19 08:46 Heparin Sodium (Porcine) (Heparin 5000 units/ml) 5,000 units EVERY 12 HOURS SUBQ 09/27/19 09:00 10/26/19 20:59 09/30/19 08:47 Hydroxychloroquine Sulfate (Plaquenil) 200 mg DAILY ORAL 09/27/19 09:00 10/26/19 08:59 09/30/19 08:46 Iron Sucrose 200 mg/Sodium Chloride 120 ml @ 240 mls/hr ONCE ONCE IV 09/30/19 13:00 09/30/19 13:29 Pantoprazole (Protonix) 40 mg EVERY 12 HOURS ORAL 09/27/19 09:00 10/25/19 20:59 09/30/19 08:46 Stephan Perez MD Sep 30, 2019 13:16
--- NOTE | 2019-09-30 13:19 | NUR ---
RD ASSESSMENT & RECOMMENDATIONS SEE CARE ACTIVITY FOR COMPLETE ASSESSMENT DAILY ESTIMATED NEEDS: Needs based on Underweight/ 42kg 30-35 kcals/kg 8905-9173 total kcals 1-1.5 g protein/kg 42-63 g total protein 25-30 mL/kg 6609-6007 total fluid mLs NUTRITION DIAGNOSIS: (1) Increased kcal/pro needs R/T underweight status as evidenced by pt @ 92% IBW, underweight BMI per guidelines. (2) Altered nutrition related lab values r/t acute kidney injury, clinical condition as evidenced by elev K (5.8 upon adm -> now wnl), elev creat (1.9) CURRENT DIET: Renal PO DIET RECOMMENDATIONS: LOW NA, LOW POTASSIUM diet/ soft easy chew ADDITIONAL RECOMMENDATIONS: * Weekly calibrated bedscale wt-> rec standing wt if able * Monitor K closely: 5.8 -> wnl * Nepro x 1 (425kcal/19g prot per sergey)- vanilla flavor per pt request * Monitor for continued good PO intake . .
--- NOTE | 2019-09-30 13:58 | NUR ---
CASE MANAGEMENT:REVIEW SI;ANEMIA. RENAL INSUFFICIENCY. LUNG EMPHYSEMA. 99.6 86 18 103/55 92% ON RA H/H 9.3/27.6 IS;IRON SUCROSE/NS IV PLAQUENIL PO QD PROTONIX PO Q12 HRS DUO NEB HHN Q4 HRS MED SURG STATU DCP; HOME WITH HOME HEALTH
--- NOTE | 2019-09-30 14:16 | General Progress Note ---
Assessment/Plan Problem List: (1) Anemia ICD Codes: D64.9 - Anemia, unspecified SNOMED: 747955092 (2) Renal insufficiency ICD Codes: N28.9 - Disorder of kidney and ureter, unspecified SNOMED: 230724895, 507582395 (3) Hyperkalemia ICD Codes: E87.5 - Hyperkalemia SNOMED: 16529694 (4) CKD (chronic kidney disease) ICD Codes: N18.9 - Chronic kidney disease, unspecified SNOMED: 446925404 (5) Emphysema lung ICD Codes: J43.9 - Emphysema, unspecified SNOMED: 02886066 Status: stable, progressing Assessment/Plan: pt diet o2 pulm tx prn neph f/u dc w hh if clear Subjective Constitutional: Reports: weakness Allergies: Coded Allergies: No Known Allergies (Unverified , 10/02/15) All Systems: reviewed and negative except above Subjective calm in bed Objective Last 24 Hour Vital Signs Date Time Temp Pulse Resp B/P (MAP) Pulse Ox O2 Delivery O2 Flow Rate FiO2 09/30/19 12:00 97.7 75 18 105/61 (76) 96 09/30/19 09:00 Room Air 09/30/19 08:00 98.1 82 18 103/55 (71) 96 09/30/19 04:00 98.5 86 18 118/61 (80) 96 09/30/19 00:00 99.6 82 18 121/64 (83) 92 09/29/19 21:00 Room Air 09/29/19 20:39 99.6 84 18 128/53 (78) 95 09/29/19 16:00 98.1 79 20 128/74 (92) 97 Intake and Output 09/29/19 09/30/19 19:00 07:00 Intake Total 1425 ml 795 ml Balance 1425 ml 795 ml Intake Oral 600 ml 120 ml IV Total 825 ml 675 ml # Voids 3 2 # Bowel Movements 1 Laboratory Tests 09/30/19 07:10: White Blood Count 7.1, Red Blood Count 3.04L, Hemoglobin 9.3L, Hematocrit 27.6L , Mean Corpuscular Volume 91, Mean Corpuscular Hemoglobin 30.5, Mean Corpuscular Hemoglobin Concent 33.6, Red Cell Distribution Width 13.1, Platelet Count 281, Mean Platelet Volume 4.9L, Neutrophils (%) (Auto) 75.3H, Lymphocytes (%) (Auto) 16.9L, Monocytes (%) (Auto) 6.3, Eosinophils (%) (Auto) 1.1, Basophils (%) (Auto) 0.5, Sodium Level 139, Potassium Level 4.0, Chloride Level 108H, Carbon Dioxide Level 20L, Anion Gap 11, Blood Urea Nitrogen 40H, Creatinine 1.9H, Estimat Glomerular Filtration Rate 25.7, Glucose Level 88, Calcium Level 8.8, Iron Level 22L, Total Iron Binding Capacity 206L, Percent Iron Saturation 11L, Unsaturated Iron Binding 184, Vitamin B12 Level 452, Folate 17.9, Immunoglobulin G [Pending] Height (Feet): 5 Height (Inches): 0.00 Weight (Pounds): 92 General Appearance: alert EENT: normal ENT inspection Neck: normal alignment Cardiovascular: normal peripheral pulses, normal rate, regular rhythm Respiratory/Chest: chest wall non-tender, lungs clear, normal breath sounds Abdomen: normal bowel sounds, non tender, soft Extremities: normal inspection Edema: no edema noted Arm (L), no edema noted Arm (R), no edema noted Leg (L), no edema noted Leg (R), no edema noted Pedal (L), no edema noted Pedal (R), no edema noted Generalized Neurologic: responsive, motor weakness Skin: normal pigmentation, warm/dry Isaak Herrera DO Sep 30, 2019 14:16
--- NOTE | 2019-09-30 15:55 | NUR ---
CHARGE NURSE NOTE: BUN 40, creat.1.9. Pt has a discharge order. was paged for nephro. clearance, message left.
[2019-09-30 16:00] VITALS: BP 136/70
[2019-09-30] MEDS ORDERED: DOCUSATE SODIU100 MG ORAL (16:24)
[2019-09-30] MEDS ORDERED: PROTONIX40 MG ORAL (16:24)
--- NOTE | 2019-09-30 17:55 | NUR ---
NURSE NOTES: Patient discharged to home accompanied by patient's son Sy in stable condition. Discharge instruction given to the patient and son. about renal diet. Skin is intact. IV and ID were removed. No s/s of infiltration on IV removal site. All consults doctor cleared the patient for discharge. All belongings accounted for. Instructed son to follow up with [facility] if no one follows up. Escorted patient to lobby.
--- NOTE | 2019-10-01 10:04 | Discharge Summary ---
Discharge Summary Discharge Summary _ DATE OF ADMISSION: 09/25/2019 DATE OF DISCHARGE: 09/30/2019 DISCHARGED BY: Dr Herrera REASON FOR ADMISSION: 74 years old female with past medical history of rheumatoid arthritis, renal insufficiency, malnutrition, hyperkalemia, history of bronchitis, pneumonia with Mycobacterium avium complex, emphysema, presented for evaluation and found to have evidence of renal insufficiency and hyperkalemia. Patient denied chest pain ,shortness of breath and cough. Upon evaluation potassium was 5.8. BUN 50, creatinine 1.5. Glucose 108. No leukocytosis, WBC 4.0, hemoglobin 9.4, hematocrit 28.8, platelet count 278. Urinalysis revealed no evidence of urinary tract infection. Patient subsequently admitted for further management. CONSULTANTS: infection prevention coordinator Dr. Perez GI specialist Dr. Skaggs trace clerk Dr. Unger surgical services coordinator/oncologist Dr. Mccray [facility]SE: Patient initially admitted to telemetry floor. Supplemental oxygen provided and titrated to keep pulse oximetry above 92%. Pulmonary toilet with bronchodilator via HHN was on board as needed. Pulse oximetry remained stable. Chest x-ray demonstrated thickening of interstitial markings, but no acute cardiopulmonary pathology was noted. DVT prophylaxis provided. Patient started on the IV fluids with close monitoring of volumes and renal parameters. Hyperkalemia was treated and resolved. Nonsteroid anti-inflammatory medication were discontinued. Patient will need other means for pain management for rheumatoid arthritis than nonsteroid anti-inflammatory medication. Anemia work-up was consistent with anemia of chronic disease. Stable folate and B12. Stool for occult blood was negative. GI prophylaxis provided. Bowel regimen instituted. Plaquenil continued. Dairy Nutrition Specialist /oncologist followed. Patient had monoclonal gammopathy . Prior lab with IgG above 3000 and serum protein electrophoresis concerning for multiply myeloma with leukopenia. Hepatitis panel and HIV test in the past were all negative. IgG this time 2587 , trending down from prior 3961. Dairy Nutrition Specialist recommended outpatient follow-up for additional work-up. Protein supplements provided as per stumper feller recommendation. Stable TSH. Supportive care provided. Patient clinically stabilized and was ready for discharge home. FINAL DIAGNOSES: Hyperkalemia Acute kidney injury on chronic kidney disease COPD/emphysema Anemia of chronic disease Monoclonal gammopathy Severe protein calorie malnutrition, BMI 17.2 Rheumatoid arthritis History of Mycobacterium avium pneumonia DISCHARGE MEDICATIONS: See Medication Reconciliation list. DISCHARGE INSTRUCTIONS: Patient was discharged home with home health services. Follow up with primary care provider in one week. I have been assigned to dictate discharge summary for this account. I was not involved in the patient's management. Nora Hinojosa NP Oct 01, 2019 10:04
== END 2019-09-30 18:14 | disposition home or self-care (01) | DRG 682 ==
LOC: EMR 13:53 → EDBEDREQ 14:40 → 2E 14:50 → EDBEDREQ 15:57 → 4E 09-26 22:23
DX: N17.9 Acute kidney failure, unspecified (principal); E43 Unspecified severe protein-calorie malnutrition; Z68.1 Body mass index [BMI] 19.9 or less, adult; E87.5 Hyperkalemia; Z79.82 Long term (current) use of aspirin; M06.9 Rheumatoid arthritis, unspecified; J43.9 Emphysema, unspecified; D47.2 Monoclonal gammopathy; I12.9 Hypertensive chronic kidney disease with stage 1 through stage 4 chronic kidney disease, or unspecified chronic kidney disease; N18.9 Chronic kidney disease, unspecified; D63.8 Anemia in other chronic diseases classified elsewhere; M81.0 Age-related osteoporosis without current pathological fracture
CPT/HCPCS: 36415; 71045; 80048; 80053; 81001; 82270; 82378; 82607; 82728; 82746; 82784; 82962; 83540; 83550; 83735; 84100; 84300; 84443; 84484; 84550; 85025; 93005; 94664; 96365; 96375; 97802; 99285

== ENCOUNTER 2019-10-08 13:15 | Inpatient (IN) | payer MEDICARE, OTHER ==
[~2019-10-08] VITALS: Ht 152.4 cm; Wt 39.5 kg
[~2019-10-08 13:15] MED LIST changes: +DOCUSATE SODIU100 MG ORAL; +PROTONIX40 MG ORAL
--- NOTE | 2019-10-08 13:30 | NUR ---
ED Nurse Note: Late entry: PT ambuluated with son to ER; flu like symptoms, no N/V/D reported; reports no hx of falls, coughing up yellowing phlegm, pain from coughing. Son at bedside, AAO x 3; will continue to monitor.
--- NOTE | 2019-10-08 13:46 | Emergency Room Report ---
History of Present Illness General Chief Complaint: Flu Like Symptoms Source: Family Member Present Illness HPI Patient was recently here last week was discharged after diagnosis of acute kidney disease the patient's son reports that the day after She was discharged she started having cold-like symptoms with runny nose and cough This has persisted for the past week now Patient also feeling generally weak and complained of mild headache Patient has some increased nausea Denies any chest pain denies any focal weakness Allergies: Coded Allergies: No Known Allergies (Unverified , 10/02/15) Patient History Past Medical History: see triage record Reviewed Nursing Documentation: PMH: Agreed; PSxH: Agreed Nursing Documentation-PMH Hx Cardiac Problems: No - RA Hx Hypertension: No Hx Pacemaker: No Hx Asthma: No Hx COPD: No - PNEUMONIA Hx Diabetes: No Hx Cancer: No Hx Gastrointestinal Problems: No - Pyelonephritis Hx Dialysis: No - "Kidney problem" Hx Neurological Problems: No Hx Cerebrovascular Accident: No Hx Seizures: No Hx Headaches: Yes Review of Systems All Other Systems: negative except mentioned in HPI Physical Exam Vital Signs Date Time Temp Pulse Resp B/P (MAP) Pulse Ox O2 Delivery O2 Flow Rate FiO2 10/08/19 13:24 99.0 87 17 102/61 (75) 93 Room Air Sp02 EP Interpretation: reviewed, normal General Appearance: no apparent distress Head: normocephalic, atraumatic Eyes: bilateral eye PERRL, bilateral eye EOMI ENT: other - Clear rhinorrhea Neck: supple, no meningismus Respiratory: no respiratory distress, no retraction, crackles - Lower lobes Cardiovascular #1: regular rate, rhythm, no edema Gastrointestinal: non tender, soft Genitourinary: no CVA tenderness Musculoskeletal: normal inspection Neurologic: alert, oriented x3 Psychiatric: normal inspection Skin: no rash Lymphatic: no adenopathy Medical Decision Making Diagnostic Impression: Primary Impression: Dyspnea Additional Impression: Renal insufficiency ER Course Patient is a fairly complex patient with multiple differential to consideration including but not limited to cardiac cardiopulmonary and vascular emergencies Patient is also showing some significant edema possibly from fluid hydration from previous visit At this time the patient will require further intervention inpatient care Patient has kidney disease and has to have subtle diuresis and admitted for further care Labs Test 10/11/19 06:54 10/12/19 07:16 White Blood Count 6.5 K/UL (4.8-10.8) 5.9 K/UL (4.8-10.8) Red Blood Count 2.79 M/UL (4.20-5.40) 2.72 M/UL (4.20-5.40) Hemoglobin 8.5 G/DL (12.0-16.0) 8.3 G/DL (12.0-16.0) Hematocrit 25.5 % (37.0-47.0) 24.4 % (37.0-47.0) Mean Corpuscular Volume 91 FL (80-99) 90 FL (80-99) Mean Corpuscular Hemoglobin 30.3 PG (27.0-31.0) 30.4 PG (27.0-31.0) Mean Corpuscular Hemoglobin Concent 33.2 G/DL (32.0-36.0) 33.9 G/DL (32.0-36.0) Red Cell Distribution Width 13.5 % (11.6-14.8) 13.7 % (11.6-14.8) Platelet Count 436 K/UL (150-450) 427 K/UL (150-450) Mean Platelet Volume 4.4 FL (6.5-10.1) 4.5 FL (6.5-10.1) Neutrophils (%) (Auto) 77.6 % (45.0-75.0) 75.4 % (45.0-75.0) Lymphocytes (%) (Auto) 14.2 % (20.0-45.0) 17.5 % (20.0-45.0) Monocytes (%) (Auto) 6.6 % (1.0-10.0) 5.1 % (1.0-10.0) Eosinophils (%) (Auto) 1.0 % (0.0-3.0) 1.3 % (0.0-3.0) Basophils (%) (Auto) 0.6 % (0.0-2.0) 0.7 % (0.0-2.0) Sodium Level 143 MMOL/L (136-145) 144 MMOL/L (136-145) Potassium Level 4.1 MMOL/L (3.5-5.1) 4.2 MMOL/L (3.5-5.1) Chloride Level 112 MMOL/L (98-107) 115 MMOL/L (98-107) Carbon Dioxide Level 17 MMOL/L (21-32) 17 MMOL/L (21-32) Anion Gap 14 mmol/L (5-15) 12 mmol/L (5-15) Blood Urea Nitrogen 55 mg/dL (7-18) 44 mg/dL (7-18) Creatinine 3.2 MG/DL (0.55-1.30) 2.8 MG/DL (0.55-1.30) Estimat Glomerular Filtration Rate 14.1 mL/min (>60) 16.5 mL/min (>60) Glucose Level 112 MG/DL (74-106) 100 MG/DL (74-106) Uric Acid 8.2 MG/DL (2.6-7.2) Calcium Level 8.6 MG/DL (8.5-10.1) 8.7 MG/DL (8.5-10.1) Phosphorus Level 4.0 MG/DL (2.5-4.9) 4.2 MG/DL (2.5-4.9) Magnesium Level 1.6 MG/DL (1.8-2.4) 1.4 MG/DL (1.8-2.4) Total Bilirubin 0.3 MG/DL (0.2-1.0) 0.3 MG/DL (0.2-1.0) Aspartate Amino Transf (AST/SGOT) 16 U/L (15-37) 17 U/L (15-37) Alanine Aminotransferase (ALT/SGPT) 10 U/L (12-78) 8 U/L (12-78) Alkaline Phosphatase 90 U/L (46-116) 80 U/L (46-116) C-Reactive Protein, Quantitative 16.6 mg/dL (0.00-0.90) Pro-B-Type Natriuretic Peptide 1876 pg/mL (0-125) Total Protein 7.5 G/DL (6.4-8.2) 7.2 G/DL (6.4-8.2) Albumin 2.0 G/DL (3.4-5.0) 1.9 G/DL (3.4-5.0) Globulin 5.5 g/dL 5.3 g/dL Albumin/Globulin Ratio 0.4 (1.0-2.7) 0.4 (1.0-2.7) Rhythm Strip Diag. Results EP Interpretation: yes Rate: 77 Rhythm: NSR, no PVC's, no ectopy Chest X-Ray Diagnostic Results Chest X-Ray Diagnostic Results : Chest X-Ray Ordered: Yes # of Views/Limited/Complete: 1 View Indication: Shortness of Breath EP Interpretation: Yes Interpretation: no consolidation, no effusion, other - Lateral patchy markings including possible edema versus infiltrate Impression: Other - Pulmonary interstitial findings with congestion Electronically Signed by: Lawrence Jackson DO Last Vital Signs Date Time Temp Pulse Resp B/P (MAP) Pulse Ox O2 Delivery O2 Flow Rate FiO2 10/08/19 13:24 99.0 87 17 102/61 (75) 93 Room Air Status: improved Disposition: ADMITTED INPATIENT Condition: Serious Lawrence Jackson DO Oct 08, 2019 13:46
[2019-10-08 14:10] VITALS: BP 102/61
[2019-10-08] MEDS ORDERED: cefTRIAXone 1 GM in NS 55 ML IVPB ONE (14:45)
[2019-10-08 15:01] LABS: HEMATOCRIT 25.6 % (37.0-47.0); HEMOGLOBIN 8.5 G/DL (12.0-16.0); MEAN CORPUSCULAR VOLUME 91 FL (80-99); PLATELET COUNT 373 K/UL (150-450); RED BLOOD COUNT 2.82 M/UL (4.20-5.40); RED CELL DISTRIBUTION WIDTH 13.3 % (11.6-14.8); WHITE BLOOD COUNT 11.3 K/UL (4.8-10.8)
--- NOTE | 2019-10-08 15:05 | Diagnostic Imaging Report ---
Indication: Shortness of breath Technique: One view of the chest Comparison: 09/26/2019 Findings: Interim development of bilateral interstitial and airspace infiltrates versus edema. Pleural spaces are clear. Normal heart size Impression: Bilateral interstitial and airspace infiltrates versus edema. Correlate with clinical findings
[2019-10-08 15:54] LABS: BILIRUBIN, URINE NEGATIVE (NEGATIVE); COLOR,URINE PALE YELLOW; GLUCOSE, URINE (UA) NEGATIVE (NEGATIVE); KETONES,URINE NEGATIVE (NEGATIVE); LEUKOCYTE ESTERASE ,URINE NEGATIVE (NEGATIVE); NITRITE,URINE NEGATIVE (NEGATIVE); PH,URINE 5 (4.5-8.0); PROTEIN,URINE 3+ (NEGATIVE); UROBILINOGEN,URINE NORMAL MG/DL (0.0-1.0)
[2019-10-08 16:00] LABS: APPEARANCE,URINE SLIGHTLY CLOUDY
[2019-10-08] MEDS ORDERED: Miralax 17gm pkt ORAL PRN (16:00)
[2019-10-08] MEDS ORDERED: Albuterol/Ipratropium 3ml neb HHN PRN (16:00)
[2019-10-08 16:06] LABS: ANION GAP 18 mmol/L (5-15); BLOOD UREA NITROGEN 78 mg/dL (7-18); CALCIUM 8.7 MG/DL (8.5-10.1); CARBON DIOXIDE 16 MMOL/L (21-32); CHLORIDE 103 MMOL/L (98-107); POTASSIUM 4.4 MMOL/L (3.5-5.1); SODIUM 136 MMOL/L (136-145)
[2019-10-08 16:20] LABS: ALANINE AMINOTRANSFERASE 20 U/L (12-78); ALBUMIN 2.5 G/DL (3.4-5.0); ALBUMIN/GLOBULIN RATIO 0.4 (1.0-2.7); ALKALINE PHOSPHATASE 107 U/L (46-116); ASPARTATE AMINO TRANSFERASE 23 U/L (15-37); BILIRUBIN,TOTAL 0.3 MG/DL (0.2-1.0); CKMB 1.3 NG/ML (0.0-3.6); CREATINE KINASE 56 U/L (26-308)
--- NOTE | 2019-10-08 19:06 | NUR ---
ED Nurse Note: PT has fever, tylenol given; no difficulty swallow water or thin liquids, PT son at bedside, PT is AAOx3.
--- NOTE | 2019-10-08 19:18 | NUR ---
HAND-OFF: Report and PT given to GLORIA Owens.
--- NOTE | 2019-10-08 19:20 | NUR ---
ED Nurse Note: Patient is resting comfortably, ERMD informed of febrile status, orders pending assessment. Will continue to monitor.
--- NOTE | 2019-10-08 20:16 | NUR ---
ED Nurse Note:\ Patient resting in bed comfortably with son at bedside. patient is afebil post medication administration. vutal signs are stable and documented. Will continue to monitor.
[2019-10-08 20:17] VITALS: BP 107/62
[2019-10-08] MEDS ORDERED: Cefepime HCl 2 GM in D5W 110 ML IV SCH (21:00)
[2019-10-08 21:30] VITALS: BP 101/52
--- NOTE | 2019-10-08 21:30 | NUR ---
ED Nurse Note: Patient sleeping soundly, no s/s of acute distress, will continue to monitor.
--- NOTE | 2019-10-08 22:45 | NUR ---
ED Nurse Note: Patient sleeping, vital signs are within normal range, will continue to monitor.
[2019-10-08 22:55] VITALS: BP 103/77
[2019-10-08] MEDS ORDERED: Vancomycin 1 GM in D5W 275 ML IV SCH (23:00)
--- NOTE | 2019-10-08 23:50 | NUR ---
ED Nurse Note: Patient ambulated to restroom with minimal assist by son, will continue to monitor.
[2019-10-09] VITALS (9 sets, daily range): BP systolic 88–134; BP diastolic 45–73
--- NOTE | 2019-10-09 00:32 | NUR ---
ED Nurse Note: Patient sleeping, no s/s of acute distress. Will continue to monitor for admitting orders , once verified.
[2019-10-09] MEDS: Heparin 5000 units/ml inj SUBQ SCH ×3 (01:14→20:38)
--- NOTE | 2019-10-09 01:38 | NUR ---
ED Nurse Note: Patient tolerated subQ injection well. Vuital signs are within normal range and documented. Will continue to monitor.
[2019-10-09] MEDS ORDERED: Cefepime HCl 500 MG in D5W 55 ML IVPB SCH (02:00)
[2019-10-09] MEDS ORDERED: Vancomycin 750mg/NS 250ml IVPB SCH ×2 (02:00)
--- NOTE | 2019-10-09 02:00 | NUR ---
ED Nurse Note: Paged Dr. trinidad to reconsider maxipeme order, dose not on had within this faciity.
--- NOTE | 2019-10-09 03:21 | NUR ---
ED Nurse Note: No return call nor pending orders to substitute maxipeme. will continue to monitor.
--- NOTE | 2019-10-09 04:30 | NUR ---
ED Nurse Note: Patient able to ambulate with stedgait and minimal assist to the restroom. Will continue to monitor.
--- NOTE | 2019-10-09 05:50 | NUR ---
ED Nurse Note: Patient resting comfortably, vital signs stable and documented. Will continue to monitor for any changes.
--- NOTE | 2019-10-09 07:20 | NUR ---
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
--- NOTE | 2019-10-09 08:45 | NUR ---
ED Nurse Note: DR Herrera at bedside, gave verbal order for regular diet for patient's breakfast.
[2019-10-09] MEDS: Cefepime HCl 500 MG in D5W 55 ML IVPB SCH (08:53)
--- NOTE | 2019-10-09 09:00 | NUR ---
ED Nurse Note: breakfast tray provided to the patient, patient is eating and tolerating well.
--- NOTE | 2019-10-09 12:59 | Consultation ---
History of Present Illness General Date patient seen: Oct 09, 2019 Chief Complaint: Flu Like Symptoms Present Illness HPI 74 y/o F with hx of RA, pulmonary MAC, emphysema, osteoporosis, pyelonephritis , multiple episodes of pneumonia presented to ED on 10/08 with flu-like symptoms (runny nose, cough, weakness, mild headache, nausea). Denied chest pain Of note, patient was admitted here from 09/25-09/30/19 with ROLANDO and hyperkalemia Allergies: Coded Allergies: No Known Allergies (Unverified , 10/02/15) Medication History Scheduled Hydroxychloroquine Sulfate (Hydroxychloroquine Sulfate), 200 MG PO DAILY, ( Reported) Discontinued Medications Docusate Sodium* (Docusate Sodium*), 100 MG ORAL THREE TIMES A DAY, (Reported) Discontinued Reason: Therapy completed Ibuprofen* (Advil*), 200 MG ORAL Q6HR PRN for Mild Pain/Temp > 100.5, (Reported) Discontinued Reason: Therapy completed Pantoprazole* (Protonix*), 40 MG ORAL DAILY, (Reported) Discontinued Reason: Therapy completed Patient History Healthcare decision maker Resuscitation status Advanced Directive on File Patient History Narrative Pmhx: as above Shx: reviewed Fhx: non contributory Review of Systems All Other Systems: negative except mentioned in HPI Physical Exam Physical Exam Narrative General Appearance: no apparent distress Head: normocephalic, atraumatic Eyes: bilateral eye PERRL, bilateral eye EOMI ENT: other - Clear rhinorrhea Neck: supple, no meningismus Respiratory: no respiratory distress, no retraction, crackles - Lower lobes Cardiovascular : regular rate, rhythm, no edema Gastrointestinal: non tender, soft Genitourinary: no CVA tenderness Musculoskeletal: normal inspection Neurologic: alert, oriented x3 Skin: no rash Last 24 Hour Vital Signs Date Time Temp Pulse Resp B/P (MAP) Pulse Ox O2 Delivery O2 Flow Rate FiO2 10/09/19 09:08 99.4 98 21 103/55 94 Room Air 10/09/19 08:02 99.4 87 21 96/54 94 Room Air 10/09/19 05:50 99.4 95 24 121/46 92 Room Air 10/09/19 03:17 99.2 88 25 134/73 100 10/09/19 01:38 98.5 84 20 114/57 94 Room Air 10/09/19 00:15 98.5 85 22 88/45 94 Room Air 10/08/19 22:55 98.5 85 20 103/77 94 Room Air 10/08/19 21:30 98.5 95 23 101/52 93 Room Air 10/08/19 20:17 98.5 92 23 107/62 95 Room Air 10/08/19 19:49 98.5 10/08/19 14:10 87 17 Room Air 10/08/19 14:10 99.0 91 17 102/61 93 Room Air 10/08/19 13:24 99.0 87 17 102/61 (75) 93 Room Air Laboratory Tests Test 10/08/19 14:33 10/08/19 15:00 White Blood Count 11.3 K/UL (4.8-10.8) H Red Blood Count 2.82 M/UL (4.20-5.40) L Hemoglobin 8.5 G/DL (12.0-16.0) L Hematocrit 25.6 % (37.0-47.0) L Mean Corpuscular Volume 91 FL (80-99) Mean Corpuscular Hemoglobin 30.3 PG (27.0-31.0) Mean Corpuscular Hemoglobin Concent 33.3 G/DL (32.0-36.0) Red Cell Distribution Width 13.3 % (11.6-14.8) Platelet Count 373 K/UL (150-450) Mean Platelet Volume 5.1 FL (6.5-10.1) L Neutrophils (%) (Auto) % (45.0-75.0) Lymphocytes (%) (Auto) % (20.0-45.0) Monocytes (%) (Auto) % (1.0-10.0) Eosinophils (%) (Auto) % (0.0-3.0) Basophils (%) (Auto) % (0.0-2.0) Differential Total Cells Counted 100 Neutrophils % (Manual) 85 % (45-75) H Lymphocytes % (Manual) 10 % (20-45) L Monocytes % (Manual) 4 % (1-10) Eosinophils % (Manual) 1 % (0-3) Basophils % (Manual) 0 % (0-2) Band Neutrophils 0 % (0-8) Platelet Estimate Adequate Platelet Morphology Normal Hypochromasia 1+ Anisocytosis 1+ Sodium Level 136 MMOL/L (136-145) Potassium Level 4.4 MMOL/L (3.5-5.1) Chloride Level 103 MMOL/L (98-107) Carbon Dioxide Level 16 MMOL/L (21-32) L Anion Gap 18 mmol/L (5-15) H Blood Urea Nitrogen 78 mg/dL (7-18) H Creatinine 3.0 MG/DL (0.55-1.30) H Estimat Glomerular Filtration Rate 15.2 mL/min (>60) Glucose Level 115 MG/DL (74-106) H Calcium Level 8.7 MG/DL (8.5-10.1) Total Bilirubin 0.3 MG/DL (0.2-1.0) Aspartate Amino Transf (AST/SGOT) 23 U/L (15-37) Alanine Aminotransferase (ALT/SGPT) 20 U/L (12-78) Alkaline Phosphatase 107 U/L (46-116) Total Creatine Kinase 56 U/L (26-308) Creatine Kinase MB 1.3 NG/ML (0.0-3.6) Creatine Kinase MB Relative Index 2.3 Troponin I 0.000 ng/mL (0.000-0.056) Total Protein 8.5 G/DL (6.4-8.2) H Albumin 2.5 G/DL (3.4-5.0) L Globulin 6.0 g/dL Albumin/Globulin Ratio 0.4 (1.0-2.7) L Urine Color Pale yellow Urine Appearance Slightly cloudy Urine pH 5 (4.5-8.0) Urine Specific [place] 1.015 (1.005-1.035) Urine Protein 3+ (NEGATIVE) H Urine Glucose (UA) Negative (NEGATIVE) Urine Ketones Negative (NEGATIVE) Urine Blood 5+ (NEGATIVE) H Urine Nitrite Negative (NEGATIVE) Urine Bilirubin Negative (NEGATIVE) Urine Urobilinogen Normal MG/DL (0.0-1.0) Urine Leukocyte Esterase Negative (NEGATIVE) Urine RBC Tntc /HPF (0 - 2) H Urine WBC 2-4 /HPF (0 - 2) Urine Squamous Epithelial Cells Moderate /LPF (NONE/OCC) H Urine Bacteria Moderate /HPF (NONE) H Urine Granular Casts 0-2 /LPF (NONE) H Microbiology Date/Time Source Procedure Growth Status 10/08/19 15:00 Urine,Clean Catch Urine Culture - Preliminary NO GROWTH Resulted Height (Feet): 5 Weight (Pounds): 88 Medications Current Medications Medications (Trade) Dose Ordered Sig/Floyd Route PRN Reason Start Time Stop Time Status Last Admin Dose Admin Acetaminophen (Tylenol) 650 mg Q4H PRN ORAL FEVER 10/08/19 16:00 11/07/19 15:59 10/08/19 19:04 Albuterol/ Ipratropium (Albuterol/ Ipratropium) 3 ml Q4H PRN HHN Shortness of Breath 10/08/19 16:00 10/13/19 15:59 Cefepime HCl 500 mg/Dextrose 55 ml @ 110 mls/hr Q24H IVPB 10/09/19 09:00 10/16/19 08:59 Dextrose (Dextrose 50%) 25 ml Q30M PRN IV Hypoglycemia 10/08/19 16:00 11/07/19 15:59 Dextrose (Dextrose 50%) 50 ml Q30M PRN IV Hypoglycemia 10/08/19 16:00 11/07/19 15:59 Heparin Sodium (Porcine) (Heparin 5000 units/ml) 5,000 units EVERY 12 HOURS SUBQ 10/08/19 21:00 11/07/19 20:59 10/09/19 08:54 Ondansetron HCl (Zofran) 4 mg Q6H PRN IVP Nausea & Vomiting 10/08/19 16:00 11/07/19 15:59 Polyethylene Glycol (Miralax) 17 gm DAILYPRN PRN ORAL Constipation 10/08/19 16:00 11/07/19 15:59 Sodium Chloride 1,000 ml @ 200 mls/hr Q5H IV 10/09/19 09:45 11/08/19 09:44 10/09/19 09:54 Vancomycin HCl (Vanco rx to dose) 1 ea DAILY PRN MISC Per rx protocol 10/09/19 02:00 11/08/19 01:59 Assessment/Plan Assessment/Plan: Abx: Ceftriaxone x1 10/08 IV Vancomycin 10/08- Cefepime 10/08- Assessment: Sepsis Probable PNA -CXR Bilateral interstitial and airspace infiltrates versus edema. Correlate with clinical findings Mild leukocytosis Afebrile -ua no pyuria; ucx NTD ROLANDO on CKD RA hx of pulmonary MAC emphysema osteoporosis hx of pyelonephritis 04/2019 hx of multiple episodes of pneumonia Plan: -Switch empiric IV Vancomycin #2 to PO linezolid given ROLANDO -continue empiric #2 -add empiric Azithromycin for atypical coverage -f/u cx -Monitor CBC/CMP, temperatures -f/u influenza sc -aspiration precautions -Renal f/u -legionella ag urine Thank you for this consultation. Will continue to follow along with you. Discussed with Nayla Gutierrez M.D. Oct 09, 2019 12:59
--- NOTE | 2019-10-09 13:26 | NUR ---
ED Nurse Note: report given to Lit BERGMAN, endorsed all plan of care to Lit BERGMAN.
--- NOTE | 2019-10-09 13:30 | Consultation ---
Consult Note Consult Note asked to eval at the request of Dr Herrera for worsening renal failure Patient known to me from her previous admission and she was discharged recently from [facility]. Upon previous discharge her serum creatinine was 1.9 at this time her creatinine is 3. Patient was recently here last week was discharged after diagnosis of acute kidney disease the patient's son reports that the day after She was discharged she started having cold-like symptoms with runny nose and cough This has persisted for the past week now Patient also feeling generally weak and complained of mild headache Patient has some increased nausea Denies any chest pain denies any focal weakness No Known Allergies (Unverified , 10/02/15) Hx Cardiac Problems: No - RA Hx COPD: No - PNEUMONIA Hx Gastrointestinal Problems: No - Pyelonephritis Hx Dialysis: No - "Kidney problem" Hx Headaches: Yes examined data reviewed Assessment/Plan Patient admitted with sepsis / Pneumonia (1) ROLANDO (acute kidney injury) (2) Renal failure (ARF), acute on chronic (3) Severe anemia (4) Protein calorie mal nutrition- BMI 17.2 (5) h/o UTI Others: h/o bronchitis h/o abdominal pain and nausea, possibly enteritis ( by CT scan) RA Plan previously given IV Iron Avoid nephrotoxics hydrate- Anemia workup per orders Isma Unger MD Oct 09, 2019 13:30
--- NOTE | 2019-10-09 13:30 | History and Physical Report ---
DATE OF ADMISSION: 10/09/2019 TIME SEEN: At 9 a.m. CONSULTANTS: 1. Stephan Perez M.D. 2. Ladarius High M.D. 3. Isma Unger M.D. CHIEF COMPLAINT: Cough, phlegm, short of breath. BRIEF HISTORY: This is a 74-year-old female, who lives at home, last week was hospitalized at [facility] with the above-mentioned diagnosis, sent home, cough got worse and started spitting up phlegm, came back to [place] ER, diagnosed with the above, pneumonia, sepsis, and in the ER currently being admitted . Currently slight short of breath in bed, slightly anxious, no complaint. REVIEW OF SYSTEMS: No chest pain. Slight short of breath. No nausea, vomiting, or diarrhea. PAST MEDICAL HISTORY: Includes ROLANDO, CKD, weakness, and malnutrition. PAST SURGICAL HISTORY: None. MEDICATIONS: Include cefepime, vancomycin, heparin, Zofran, albuterol, furosemide, ceftriaxone. ALLERGIES: Denies. SOCIAL HISTORY: No smoking. No alcohol. No intravenous drug use. FAMILY HISTORY: Noncontributory. PHYSICAL EXAMINATION: GENERAL: Slightly anxious in bed, oriented x3, no acute distress. VITAL SIGNS: Temperature 99, pulse 98, respirations 20, blood pressure 103/55. CARDIOVASCULAR: No murmurs. LUNGS: Poor air exchange. ABDOMEN: Bowel sounds distant. EXTREMITIES: No cyanosis, clubbing, or edema. NEUROLOGIC: The patient moves all extremities, slightly weak. LABORATORY AND DIAGNOSTIC DATA: Labs at this time show white count 11.3, hemoglobin and hematocrit 8.5 and 25, otherwise CBC is normal. BMP shows CO2 16, BUN and creatinine 78 and 3.0, glucose 115. Troponin 0.00. Albumin 2.5. Urinalysis show 5+ blood, 3+ protein. ASSESSMENT: 1. Pneumonia. 2. Shortness of breath. 3. Sepsis. 4. Cough. 5. ROLANDO. 6. Weakness. 7. Malnutrition. 8. Pulmonary congestion. 9. Anemia. PLAN: 1. . 2. Antibiotics per Infectious Disease. 3. Nephrology followup. 4. Dietary followup. 5. IV fluid. 6. PT and dietary evaluation. 7. CBC and BMP in the morning. Isaak Herrera D.O. DR: ANALIA JOB#: [id number] CC:
[2019-10-09] MEDS: D5NS 1,000 ML IV SCH (13:45)
--- NOTE | 2019-10-09 13:47 | NUR ---
ED Nurse Note: patient transferred to 2E with all of her belongings, her son took 1 belongings bags, instructed son to go up to 2E with new visitor pass. patient transferred on a buckland bed, on ACLS protocol, endorsed patient to Eliud CASTRO, endorsed all plan of care.
--- NOTE | 2019-10-09 13:50 | NUR ---
NURSE NOTES: Pt brought up from ER via gurney ambulated to the bed, awake/alert breathing easily on room air, denies SOB and denies pain at this time. VS stable with SR @ 92 on monitor. IV access left wrist flushed with 10 ml NS and locked. Lungs clear bilat but diminished in bases. Abd soft/supple, no rigidity/masses/guarding. 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 Bed left in low position, side rails up x 2 and call light left near pt's hand.
[2019-10-09] MEDS: Azithromycin 250mg tab ORAL SCH (14:00)
[2019-10-09] MEDS: Docusate 100mg cap ORAL SCH (18:00)
--- NOTE | 2019-10-09 19:15 | NUR ---
OBTAINED REPORT FROM KAROLINA CASTRO. PT RESTING IN BED NO APPARENT DISTRESS.
[2019-10-10] VITALS: BP 106/66
[2019-10-10 04:00] VITALS: BP 118/66
--- NOTE | 2019-10-10 07:00 | NUR ---
GAVE FULL REPORT TO KAROLINA CASTRO. PT RESTING IN BED NO APPARENT DISTRESS.
[2019-10-10] MEDS: D5NS 1,000 ML IV SCH ×2 (07:40→12:15)
--- NOTE | 2019-10-10 07:43 | NUR ---
NURSE NOTES: Pt awake/alert in bed eating breakfast, breathing easily on room air, denies SOB and denies pain at this time. VS stable with SR @ 95 on monitor. IV access left wrist with D5NS running at 50 ml/hr. Bed left in low position, side rails up x 2 and call light left near pt's hand.
--- NOTE | 2019-10-10 07:45 | NUR ---
NURSE NOTES: Pt awake/alert breathing easily on room air, denies SOB and denies pain at this time. VS stable with SR @ 84 on monitor. IV access left wrist, with D5NS @ 50 ml/hr. Bed left in low position, side rails up x 2 and call light left near pt's hand.
[2019-10-10 08:00] VITALS: BP 120/61
--- NOTE | 2019-10-10 08:51 | NUR ---
RD ASSESSMENT & RECOMMENDATIONS SEE CARE ACTIVITY FOR COMPLETE ASSESSMENT DAILY ESTIMATED NEEDS: Needs based on Underweight / 42.7kg 30-35 kcals/kg 8911-3992 total kcals 1-1.5 g protein/kg 43-64 g total protein 25-30 mL/kg 1050-0660 total fluid mLs NUTRITION DIAGNOSIS: (1) Increased kcal/pro needs R/T underweight status as evidenced by pt @ 94% IBW, underweight BMI per guidelines. CURRENT DIET:REGULAR PO DIET RECOMMENDATIONS: LOW NA/ texture as tolerated ADDITIONAL RECOMMENDATIONS: * Weekly calibrated bedscale wt-> rec standing wt if able * Monitor K, need for K restriction (h/o hyperkalemia) * Ensure Enlive once daily (350kcal/ 20g prot per bottle)
[2019-10-10] MEDS: Azithromycin 250mg tab ORAL SCH (08:56)
[2019-10-10] MEDS: Docusate 100mg cap ORAL SCH ×2 (08:56→17:50)
[2019-10-10] MEDS: Heparin 5000 units/ml inj SUBQ SCH ×2 (09:04→21:39)
[2019-10-10] MEDS: Cefepime HCl 500 MG in D5W 55 ML IVPB SCH (09:05)
[2019-10-10 09:28] LABS: BASOPHILS % (AUTO) 0.3 % (0.0-2.0); EOSINOPHILS % (AUTO) 0.5 % (0.0-3.0); HEMATOCRIT 26.8 % (37.0-47.0); HEMOGLOBIN 8.9 G/DL (12.0-16.0); LYMPHOCYTES % (AUTO) 10.9 % (20.0-45.0); MEAN CORPUSCULAR VOLUME 91 FL (80-99); MONOCYTES % (AUTO) 5.5 % (1.0-10.0); NEUTROPHILS % (AUTO) 82.9 % (45.0-75.0); PLATELET COUNT 404 K/UL (150-450); RED BLOOD COUNT 2.95 M/UL (4.20-5.40); RED CELL DISTRIBUTION WIDTH 13.1 % (11.6-14.8)
[2019-10-10 09:40] LABS: GAMMA GLUTAMYL TRANSPEPTIDASE 24 U/L (5-85)
[2019-10-10 09:41] LABS: % IRON SATURATION 15 % (15-50); IRON 24 ug/dL (50-175); TOTAL IRON BINDING CAPACITY 156 ug/dL (250-450)
--- NOTE | 2019-10-10 10:03 | General Progress Note ---
Assessment/Plan Problem List: (1) Anemia ICD Codes: D64.9 - Anemia, unspecified SNOMED: 939035725 (2) Renal insufficiency ICD Codes: N28.9 - Disorder of kidney and ureter, unspecified SNOMED: 082459724, 877268639 (3) Dyspnea ICD Codes: R06.00 - Dyspnea, unspecified SNOMED: 641521186 (4) Pulmonary congestion ICD Codes: R09.89 - Other specified symptoms and signs involving the circulatory and respiratory systems SNOMED: 09254629 (5) Pneumonia ICD Codes: J18.9 - Pneumonia, unspecified organism SNOMED: 953720780 Status: stable, progressing Assessment/Plan: o2 pulm tx abx pt diet cbc bmp am Subjective Constitutional: Reports: weakness Respiratory: Reports: shortness of breath Allergies: Coded Allergies: No Known Allergies (Unverified , 10/02/15) All Systems: reviewed and negative except above Subjective sitting calm Objective Last 24 Hour Vital Signs Date Time Temp Pulse Resp B/P (MAP) Pulse Ox O2 Delivery O2 Flow Rate FiO2 10/10/19 08:29 Room Air 10/10/19 08:00 97.7 87 18 120/61 (80) 98 10/10/19 04:00 98.1 79 20 118/66 (83) 95 10/10/19 04:00 73 10/10/19 00:00 92 10/10/19 00:00 98.4 92 20 106/66 (79) 95 10/09/19 21:00 90 10/09/19 20:00 98.1 95 18 121/64 (83) 95 10/09/19 19:55 Room Air 10/09/19 16:00 98.8 94 20 118/58 (78) 93 10/09/19 16:00 98 10/09/19 14:29 Room Air 10/09/19 13:47 98.8 95 28 102/59 100 Room Air 10/09/19 13:33 98.8 95 28 102/59 100 Room Air Intake and Output 10/09/19 10/10/19 19:00 07:00 Intake Total 320 ml Output Total 1000 ml Balance 320 ml -1000 ml Intake Oral 120 ml IV Total 200 ml Output Urine Total 1000 ml Laboratory Tests 10/10/19 08:18: White Blood Count 9.0, Red Blood Count 2.95L, Hemoglobin 8.9L, Hematocrit 26.8L , Mean Corpuscular Volume 91, Mean Corpuscular Hemoglobin 30.3, Mean Corpuscular Hemoglobin Concent 33.4, Red Cell Distribution Width 13.1, Platelet Count 404, Mean Platelet Volume 4.9L, Neutrophils (%) (Auto) 82.9H, Lymphocytes (%) (Auto) 10.9L, Monocytes (%) (Auto) 5.5, Eosinophils (%) (Auto) 0.5, Basophils (%) (Auto) 0.3, Sodium Level [Pending], Potassium Level [Pending], Chloride Level [Pending], Carbon Dioxide Level [Pending], Blood Urea Nitrogen [ Pending], Creatinine [Pending], Estimat Glomerular Filtration Rate [Pending], Glucose Level [Pending], Hemoglobin A1c 5.9, Uric Acid 8.0H, Calcium Level [ Pending], Phosphorus Level [Pending], Magnesium Level 1.7L, Iron Level 24L, Total Iron Binding Capacity 156L, Percent Iron Saturation 15, Unsaturated Iron Binding 132, Ferritin [Pending], Total Bilirubin [Pending], Gamma Glutamyl Transpeptidase 24, Aspartate Amino Transf (AST/SGOT) [Pending], Alanine Aminotransferase (ALT/SGPT) [Pending], Alkaline Phosphatase [Pending], Troponin I 0.000, C-Reactive Protein, Quantitative 22.1H, Pro-B-Type Natriuretic Peptide 1420H, Total Protein [Pending], Albumin [Pending], Globulin [Pending], Triglycerides Level [Pending], Cholesterol Level [Pending], LDL Cholesterol [ Pending], HDL Cholesterol [Pending], Cholesterol/HDL Ratio [Pending], Vitamin B12 Level [Pending], Folate [Pending], Thyroid Stimulating Hormone (TSH) [ Pending] Height (Feet): 5 Height (Inches): 0.00 Weight (Pounds): 87 General Appearance: lethargic EENT: normal ENT inspection Neck: normal alignment Cardiovascular: normal peripheral pulses, normal rate, regular rhythm Respiratory/Chest: chest wall non-tender, lungs clear, normal breath sounds Abdomen: normal bowel sounds, non tender, soft Extremities: normal inspection Edema: no edema noted Arm (L), no edema noted Arm (R), no edema noted Leg (L), no edema noted Leg (R), no edema noted Pedal (L), no edema noted Pedal (R), no edema noted Generalized Neurologic: responsive, motor weakness Skin: normal pigmentation, warm/dry Isaak Herrera DO Oct 10, 2019 10:03
--- NOTE | 2019-10-10 10:14 | Infectious Diseases Prog Note ---
Assessment/Plan Assessment/Plan Abx: Ceftriaxone x1 10/08 IV Vancomycin 10/08- Cefepime 10/08- Assessment: Sepsis Probable PNA -CXR Bilateral interstitial and airspace infiltrates versus edema. Correlate with clinical findings Mild leukocytosis Afebrile -ua no pyuria; ucx NTD ROLANDO on CKD RA hx of pulmonary MAC emphysema osteoporosis hx of pyelonephritis 04/2019 hx of multiple episodes of pneumonia Plan: -Continue PO linezolid #1 given ROLANDO -continue empiric Cefepiem #2 and Azithromycin #1 for atypical coverage - 10/09/19 SP Vancomycin #2 -f/u cx -Monitor CBC/CMP, temperatures -f/u influenza sc -aspiration precautions -Renal f/u -legionella ag urine Thank you for this consultation. Will continue to follow along with you. Subjective Allergies: Coded Allergies: No Known Allergies (Unverified , 10/02/15) Subjective Afebrile Leukocytosis resolved On RA Objective Vital Signs Last 24 Hour Vital Signs Date Time Temp Pulse Resp B/P (MAP) Pulse Ox O2 Delivery O2 Flow Rate FiO2 10/10/19 08:29 Room Air 10/10/19 08:00 97.7 87 18 120/61 (80) 98 10/10/19 04:00 98.1 79 20 118/66 (83) 95 10/10/19 04:00 73 10/10/19 00:00 92 10/10/19 00:00 98.4 92 20 106/66 (79) 95 10/09/19 21:00 90 10/09/19 20:00 98.1 95 18 121/64 (83) 95 10/09/19 19:55 Room Air 10/09/19 16:00 98.8 94 20 118/58 (78) 93 10/09/19 16:00 98 10/09/19 14:29 Room Air 10/09/19 13:47 98.8 95 28 102/59 100 Room Air 10/09/19 13:33 98.8 95 28 102/59 100 Room Air Height (Feet): 5 Height (Inches): 0.00 Weight (Pounds): 87 Objective General Appearance: no apparent distress Head: normocephalic, atraumatic Respiratory: no respiratory distress, no retraction, crackles - Lower lobes Cardiovascular : regular rate, rhythm, no edema Gastrointestinal: non tender, soft Microbiology Date/Time Source Procedure Growth Status 10/08/19 15:00 Urine,Clean Catch Urine Culture - Final Mixed Gram Positive Organism Complete Laboratory Tests Test 10/10/19 08:18 White Blood Count 9.0 K/UL (4.8-10.8) Red Blood Count 2.95 M/UL (4.20-5.40) L Hemoglobin 8.9 G/DL (12.0-16.0) L Hematocrit 26.8 % (37.0-47.0) L Mean Corpuscular Volume 91 FL (80-99) Mean Corpuscular Hemoglobin 30.3 PG (27.0-31.0) Mean Corpuscular Hemoglobin Concent 33.4 G/DL (32.0-36.0) Red Cell Distribution Width 13.1 % (11.6-14.8) Platelet Count 404 K/UL (150-450) Mean Platelet Volume 4.9 FL (6.5-10.1) L Neutrophils (%) (Auto) 82.9 % (45.0-75.0) H Lymphocytes (%) (Auto) 10.9 % (20.0-45.0) L Monocytes (%) (Auto) 5.5 % (1.0-10.0) Eosinophils (%) (Auto) 0.5 % (0.0-3.0) Basophils (%) (Auto) 0.3 % (0.0-2.0) Sodium Level Pending Potassium Level Pending Chloride Level Pending Carbon Dioxide Level Pending Blood Urea Nitrogen Pending Creatinine Pending Estimat Glomerular Filtration Rate Pending Glucose Level Pending Hemoglobin A1c 5.9 % (4.3-6.0) Uric Acid 8.0 MG/DL (2.6-7.2) H Calcium Level Pending Phosphorus Level Pending Magnesium Level 1.7 MG/DL (1.8-2.4) L Iron Level 24 ug/dL (50-175) L Total Iron Binding Capacity 156 ug/dL (250-450) L Percent Iron Saturation 15 % (15-50) Unsaturated Iron Binding 132 ug/dL (112-346) Ferritin Pending Total Bilirubin Pending Gamma Glutamyl Transpeptidase 24 U/L (5-85) Aspartate Amino Transf (AST/SGOT) Pending Alanine Aminotransferase (ALT/SGPT) Pending Alkaline Phosphatase Pending Troponin I 0.000 ng/mL (0.000-0.056) C-Reactive Protein, Quantitative 22.1 mg/dL (0.00-0.90) H Pro-B-Type Natriuretic Peptide 1420 pg/mL (0-125) H Total Protein Pending Albumin Pending Globulin Pending Triglycerides Level Pending Cholesterol Level Pending LDL Cholesterol Pending HDL Cholesterol Pending Cholesterol/HDL Ratio Pending Vitamin B12 Level Pending Folate Pending Thyroid Stimulating Hormone (TSH) Pending Current Medications Medications (Trade) Dose Ordered Sig/Floyd Route PRN Reason Start Time Stop Time Status Last Admin Dose Admin Acetaminophen (Tylenol) 650 mg Q4H PRN ORAL FEVER 10/08/19 16:00 11/07/19 15:59 10/08/19 19:04 Albuterol/ Ipratropium (Albuterol/ Ipratropium) 3 ml Q4H PRN HHN Shortness of Breath 10/08/19 16:00 10/13/19 15:59 Azithromycin (Zithromax) 500 mg DAILY ORAL 10/09/19 14:00 10/16/19 13:59 10/10/19 08:56 Cefepime HCl 500 mg/Dextrose 55 ml @ 110 mls/hr Q24H IVPB 10/09/19 09:00 10/16/19 08:59 10/10/19 09:05 Dextrose (Dextrose 50%) 25 ml Q30M PRN IV Hypoglycemia 10/08/19 16:00 11/07/19 15:59 Dextrose (Dextrose 50%) 50 ml Q30M PRN IV Hypoglycemia 10/08/19 16:00 11/07/19 15:59 Dextrose/Sodium Chloride 1,000 ml @ 50 mls/hr Q20H IV 10/09/19 13:45 11/08/19 13:44 10/10/19 07:40 Docusate Sodium (Colace) 100 mg TWICE A DAY ORAL 10/09/19 18:00 11/08/19 17:59 10/10/19 08:56 Heparin Sodium (Porcine) (Heparin 5000 units/ml) 5,000 units EVERY 12 HOURS SUBQ 10/08/19 21:00 11/07/19 20:59 10/10/19 09:04 Linezolid (Zyvox) 600 mg EVERY 12 HOURS ORAL 10/09/19 21:00 10/14/19 20:59 10/10/19 08:56 Ondansetron HCl (Zofran) 4 mg Q6H PRN IVP Nausea & Vomiting 10/08/19 16:00 11/07/19 15:59 Pantoprazole (Protonix) 40 mg DAILY ORAL 10/09/19 13:45 11/08/19 13:44 10/10/19 08:55 Polyethylene Glycol (Miralax) 17 gm DAILYPRN PRN ORAL Constipation 10/08/19 16:00 11/07/19 15:59 Cruz Griggs MD Oct 10, 2019 10:14
[2019-10-10 10:54] LABS: ALANINE AMINOTRANSFERASE 20 U/L (12-78); ALBUMIN 2.1 G/DL (3.4-5.0); ALBUMIN/GLOBULIN RATIO 0.4 (1.0-2.7); ALKALINE PHOSPHATASE 103 U/L (46-116); ANION GAP 19 mmol/L (5-15); ASPARTATE AMINO TRANSFERASE 15 U/L (15-37); BILIRUBIN,TOTAL 0.2 MG/DL (0.2-1.0); BLOOD UREA NITROGEN 58 mg/dL (7-18); CALCIUM 8.5 MG/DL (8.5-10.1); CARBON DIOXIDE 14 MMOL/L (21-32); CHLORIDE 108 MMOL/L (98-107); CHOLESTEROL 87 MG/DL (< 200); CREATININE 2.9 MG/DL (0.55-1.30); FERRITIN 393 NG/ML (8-388); HDL CHOLESTEROL 21 MG/DL (40-60); PHOSPHORUS 3.8 MG/DL (2.5-4.9); POTASSIUM 3.8 MMOL/L (3.5-5.1); SODIUM 141 MMOL/L (136-145); TRIGLYCERIDES 119 MG/DL (30-150)
--- NOTE | 2019-10-10 11:11 | Nephrology Progress Note ---
Assessment/Plan Problem List: (1) Renal failure (ARF), acute on chronic (2) Severe protein-calorie malnutrition (3) Severe anemia Assessment Patient admitted with sepsis / Pneumonia (1) ROLANDO (acute kidney injury) (2) Renal failure (ARF), acute on chronic (3) Severe anemia (4) Protein calorie mal nutrition- BMI 17.2 (5) h/o UTI Others: h/o bronchitis h/o abdominal pain and nausea, possibly enteritis ( by CT scan) RA Plan previously given IV Iron, will give more EPO SQ Avoid nephrotoxics hydrate- Anemia workup per orders Subjective ROS Limited/Unobtainable: No Constitutional: Reports: malaise, weakness Objective Objective Last 24 Hour Vital Signs Date Time Temp Pulse Resp B/P (MAP) Pulse Ox O2 Delivery O2 Flow Rate FiO2 10/10/19 08:29 Room Air 10/10/19 08:00 89 10/10/19 08:00 97.7 87 18 120/61 (80) 98 10/10/19 04:00 98.1 79 20 118/66 (83) 95 10/10/19 04:00 73 10/10/19 00:00 92 10/10/19 00:00 98.4 92 20 106/66 (79) 95 10/09/19 21:00 90 10/09/19 20:00 98.1 95 18 121/64 (83) 95 10/09/19 19:55 Room Air 10/09/19 16:00 98.8 94 20 118/58 (78) 93 10/09/19 16:00 98 10/09/19 14:29 Room Air 10/09/19 13:47 98.8 95 28 102/59 100 Room Air 10/09/19 13:33 98.8 95 28 102/59 100 Room Air Intake and Output 10/09/19 10/10/19 19:00 07:00 Intake Total 320 ml Output Total 1000 ml Balance 320 ml -1000 ml Intake Oral 120 ml IV Total 200 ml Output Urine Total 1000 ml Current Medications Medications (Trade) Dose Ordered Sig/Floyd Route PRN Reason Start Time Stop Time Status Last Admin Dose Admin Acetaminophen (Tylenol) 650 mg Q4H PRN ORAL FEVER 10/08/19 16:00 11/07/19 15:59 10/08/19 19:04 Albuterol/ Ipratropium (Albuterol/ Ipratropium) 3 ml Q4H PRN HHN Shortness of Breath 10/08/19 16:00 10/13/19 15:59 Azithromycin (Zithromax) 500 mg DAILY ORAL 10/09/19 14:00 10/16/19 13:59 10/10/19 08:56 Cefepime HCl 500 mg/Dextrose 55 ml @ 110 mls/hr Q24H IVPB 10/09/19 09:00 10/16/19 08:59 10/10/19 09:05 Dextrose (Dextrose 50%) 25 ml Q30M PRN IV Hypoglycemia 10/08/19 16:00 11/07/19 15:59 Dextrose (Dextrose 50%) 50 ml Q30M PRN IV Hypoglycemia 10/08/19 16:00 11/07/19 15:59 Dextrose/Sodium Chloride 1,000 ml @ 50 mls/hr Q20H IV 10/09/19 13:45 11/08/19 13:44 10/10/19 07:40 Docusate Sodium (Colace) 100 mg TWICE A DAY ORAL 10/09/19 18:00 11/08/19 17:59 10/10/19 08:56 Heparin Sodium (Porcine) (Heparin 5000 units/ml) 5,000 units EVERY 12 HOURS SUBQ 10/08/19 21:00 11/07/19 20:59 10/10/19 09:04 Linezolid (Zyvox) 600 mg EVERY 12 HOURS ORAL 10/09/19 21:00 10/14/19 20:59 10/10/19 08:56 Ondansetron HCl (Zofran) 4 mg Q6H PRN IVP Nausea & Vomiting 10/08/19 16:00 11/07/19 15:59 Pantoprazole (Protonix) 40 mg DAILY ORAL 10/09/19 13:45 11/08/19 13:44 10/10/19 08:55 Polyethylene Glycol (Miralax) 17 gm DAILYPRN PRN ORAL Constipation 10/08/19 16:00 11/07/19 15:59 Laboratory Tests 10/10/19 08:18: White Blood Count 9.0, Red Blood Count 2.95L, Hemoglobin 8.9L, Hematocrit 26.8L , Mean Corpuscular Volume 91, Mean Corpuscular Hemoglobin 30.3, Mean Corpuscular Hemoglobin Concent 33.4, Red Cell Distribution Width 13.1, Platelet Count 404, Mean Platelet Volume 4.9L, Neutrophils (%) (Auto) 82.9H, Lymphocytes (%) (Auto) 10.9L, Monocytes (%) (Auto) 5.5, Eosinophils (%) (Auto) 0.5, Basophils (%) (Auto) 0.3, Sodium Level 141, Potassium Level 3.8, Chloride Level 108H, Carbon Dioxide Level 14L, Anion Gap 19H, Blood Urea Nitrogen 58H, Creatinine 2.9H, Estimat Glomerular Filtration Rate 15.8, Glucose Level 152H, Hemoglobin A1c 5.9, Uric Acid 8.0H, Calcium Level 8.5, Phosphorus Level 3.8, Magnesium Level 1.7L, Iron Level 24L, Total Iron Binding Capacity 156L, Percent Iron Saturation 15, Unsaturated Iron Binding 132, Ferritin 393H, Total Bilirubin 0.2, Gamma Glutamyl Transpeptidase 24, Aspartate Amino Transf (AST/ SGOT) 15, Alanine Aminotransferase (ALT/SGPT) 20, Alkaline Phosphatase 103, Troponin I 0.000, C-Reactive Protein, Quantitative 22.1H, Pro-B-Type Natriuretic Peptide 1420H, Total Protein 7.9, Albumin 2.1L, Globulin 5.8, Albumin/Globulin Ratio 0.4L, Triglycerides Level 119, Cholesterol Level 87, LDL Cholesterol 46, HDL Cholesterol 21L, Cholesterol/HDL Ratio 4.1, Vitamin B12 Level [Pending], Folate [Pending], Thyroid Stimulating Hormone (TSH) 1.730 Height (Feet): 5 Height (Inches): 0.00 Weight (Pounds): 87 General Appearance: no apparent distress Cardiovascular: tachycardia Respiratory/Chest: decreased breath sounds Abdomen: soft Isma Unger MD Oct 10, 2019 11:11
[2019-10-10 12:00] VITALS: BP 102/65
[2019-10-10] MEDS ORDERED: Iron Sucrose 200 MG in NS 110 ML IV SCH (12:00)
[2019-10-10 16:00] VITALS: BP 112/66
--- NOTE | 2019-10-10 19:35 | NUR ---
NURSE NOTES: Received report from GLORIA Kline. Patient is in bed, awake and responsive. Breathing regular and unlabored with no S/S of SOB or chest pain noted. Patient is primarily Irish speaking, but able to make needs known. Son is currently at bed side. IV access is on the RFA, 22G, patent, intact, and running fluids at prescribed rate. Patient denies any pain or discomfort at this time. Bed remains in the lowest position, breaks engaged, and call light is within reach at all times. All other needs attended to, patient remains stable, will continue to monitor.
[2019-10-10 20:00] VITALS: BP 129/67
[2019-10-11] VITALS: BP 118/70
[2019-10-11] MEDS: D5NS 1,000 ML IV SCH ×2 (02:03→14:29)
[2019-10-11 04:00] VITALS: BP 114/65
--- NOTE | 2019-10-11 06:59 | NUR ---
HAND-OFF: Report given to GLORIA Kline. Patient in stable condition.
--- NOTE | 2019-10-11 07:56 | NUR ---
NURSE NOTES: Pt dozing in bed, awoke to soft voice, breathing easily on room air, denies SOB and denies pain at this time. VS stable with SR @ 82 on monitor. IV access right hand with D5NS running at 75 ml/hr. Bed left in low position, side rails up x 2 and call light left near pt's hand.
[2019-10-11 08:00] VITALS: BP 117/66
[2019-10-11 08:49] LABS: BASOPHILS % (AUTO) 0.6 % (0.0-2.0); HEMATOCRIT 25.5 % (37.0-47.0); HEMOGLOBIN 8.5 G/DL (12.0-16.0); LYMPHOCYTES % (AUTO) 14.2 % (20.0-45.0); MEAN CORPUSCULAR VOLUME 91 FL (80-99); MONOCYTES % (AUTO) 6.6 % (1.0-10.0); NEUTROPHILS % (AUTO) 77.6 % (45.0-75.0); PLATELET COUNT 436 K/UL (150-450); RED BLOOD COUNT 2.79 M/UL (4.20-5.40); RED CELL DISTRIBUTION WIDTH 13.5 % (11.6-14.8); WHITE BLOOD COUNT 6.5 K/UL (4.8-10.8)
[2019-10-11] MEDS: Azithromycin 250mg tab ORAL SCH (08:51)
[2019-10-11] MEDS: Docusate 100mg cap ORAL SCH ×2 (08:52→17:22)
[2019-10-11] MEDS: Heparin 5000 units/ml inj SUBQ SCH ×2 (08:59→21:34)
[2019-10-11] MEDS: Cefepime HCl 500 MG in D5W 55 ML IVPB SCH (09:00)
--- NOTE | 2019-10-11 09:14 | General Progress Note ---
Assessment/Plan Problem List: (1) Anemia ICD Codes: D64.9 - Anemia, unspecified SNOMED: 056047924 (2) Renal insufficiency ICD Codes: N28.9 - Disorder of kidney and ureter, unspecified SNOMED: 943357396, 303915035 (3) Dyspnea ICD Codes: R06.00 - Dyspnea, unspecified SNOMED: 939461901 (4) Pulmonary congestion ICD Codes: R09.89 - Other specified symptoms and signs involving the circulatory and respiratory systems SNOMED: 15469242 (5) Pneumonia ICD Codes: J18.9 - Pneumonia, unspecified organism SNOMED: 928235449 Status: stable, progressing Assessment/Plan: o2 pulm tx abx pt diet cbc bmp am aru eval Subjective Constitutional: Reports: weakness Allergies: Coded Allergies: No Known Allergies (Unverified , 10/02/15) All Systems: reviewed and negative except above Subjective sitting calm Objective Last 24 Hour Vital Signs Date Time Temp Pulse Resp B/P (MAP) Pulse Ox O2 Delivery O2 Flow Rate FiO2 10/11/19 08:15 Room Air 10/11/19 08:00 85 10/11/19 04:00 98.3 85 16 114/65 (81) 94 10/11/19 04:00 76 10/11/19 00:00 83 10/11/19 00:00 97.2 92 18 118/70 (86) 93 10/10/19 21:00 Room Air 10/10/19 20:00 102 10/10/19 20:00 98.5 103 20 129/67 (87) 93 10/10/19 16:00 98.4 84 20 112/66 (81) 97 10/10/19 15:59 85 10/10/19 12:00 97.6 87 18 102/65 (77) 100 10/10/19 12:00 87 Intake and Output 10/10/19 10/11/19 19:00 07:00 Intake Total 140 ml Output Total 1400 ml Balance -1260 ml Intake Oral 140 ml Output Urine Total 1400 ml # Voids 3 2 Laboratory Tests 10/11/19 06:54: White Blood Count 6.5, Red Blood Count 2.79L, Hemoglobin 8.5L, Hematocrit 25.5L , Mean Corpuscular Volume 91, Mean Corpuscular Hemoglobin 30.3, Mean Corpuscular Hemoglobin Concent 33.2, Red Cell Distribution Width 13.5, Platelet Count 436, Mean Platelet Volume 4.4L, Neutrophils (%) (Auto) 77.6H, Lymphocytes (%) (Auto) 14.2L, Monocytes (%) (Auto) 6.6, Eosinophils (%) (Auto) 1.0, Basophils (%) (Auto) 0.6, Sodium Level [Pending], Potassium Level [Pending], Chloride Level [Pending], Carbon Dioxide Level [Pending], Blood Urea Nitrogen [ Pending], Creatinine [Pending], Estimat Glomerular Filtration Rate [Pending], Glucose Level [Pending], Uric Acid [Pending], Calcium Level [Pending], Phosphorus Level [Pending], Magnesium Level [Pending], Total Bilirubin [Pending] , Aspartate Amino Transf (AST/SGOT) [Pending], Alanine Aminotransferase (ALT/ SGPT) [Pending], Alkaline Phosphatase [Pending], C-Reactive Protein, Quantitative [Pending], Pro-B-Type Natriuretic Peptide [Pending], Total Protein [Pending], Albumin [Pending], Globulin [Pending] Height (Feet): 5 Height (Inches): 0.00 Weight (Pounds): 87 General Appearance: lethargic EENT: normal ENT inspection Neck: normal alignment Cardiovascular: normal peripheral pulses, normal rate, regular rhythm Respiratory/Chest: chest wall non-tender, lungs clear, normal breath sounds Abdomen: normal bowel sounds, non tender, soft Extremities: normal inspection Edema: no edema noted Arm (L), no edema noted Arm (R), no edema noted Leg (L), no edema noted Leg (R), no edema noted Pedal (L), no edema noted Pedal (R), no edema noted Generalized Neurologic: responsive, motor weakness Skin: normal pigmentation, warm/dry Isaak Herrera DO Oct 11, 2019 09:14
[2019-10-11 09:32] LABS: ALANINE AMINOTRANSFERASE 10 U/L (12-78); ALBUMIN/GLOBULIN RATIO 0.4 (1.0-2.7); ALKALINE PHOSPHATASE 90 U/L (46-116); ANION GAP 14 mmol/L (5-15); ASPARTATE AMINO TRANSFERASE 16 U/L (15-37); BILIRUBIN,TOTAL 0.3 MG/DL (0.2-1.0); BLOOD UREA NITROGEN 55 mg/dL (7-18); CALCIUM 8.6 MG/DL (8.5-10.1); CARBON DIOXIDE 17 MMOL/L (21-32); CHLORIDE 112 MMOL/L (98-107); CREATININE 3.2 MG/DL (0.55-1.30); POTASSIUM 4.1 MMOL/L (3.5-5.1); SODIUM 143 MMOL/L (136-145)
--- NOTE | 2019-10-11 10:07 | NUR ---
PT Note PT dwight completed, treatment initiated. Patient has muscle weakness and decreased standing balance. Patient can benefit from PT services to increase her muscle strength and balance to improve her safety in mobility and gait. Addendum: 10/11/19 at 1007 by VICKIE BARR PT Amended: Links added.
--- NOTE | 2019-10-11 11:56 | Nephrology Progress Note ---
Assessment/Plan Problem List: (1) Renal failure (ARF), acute on chronic Assessment: Cr higher (2) Severe protein-calorie malnutrition (3) Severe anemia Assessment Patient admitted with sepsis / Pneumonia (1) ROLANDO (acute kidney injury) (2) Renal failure (ARF), acute on chronic (3) Severe anemia (4) Protein calorie mal nutrition- BMI 17.2 (5) h/o UTI Others: h/o bronchitis h/o abdominal pain and nausea, possibly enteritis ( by CT scan) RA Plan previously given IV Iron, will give more EPO SQ Avoid nephrotoxics hydrate- Anemia workup per orders Subjective ROS Limited/Unobtainable: No Constitutional: Reports: malaise Objective Objective Last 24 Hour Vital Signs Date Time Temp Pulse Resp B/P (MAP) Pulse Ox O2 Delivery O2 Flow Rate FiO2 10/11/19 08:15 Room Air 10/11/19 08:00 85 10/11/19 08:00 98.0 80 18 117/66 (83) 94 10/11/19 04:00 98.3 85 16 114/65 (81) 94 10/11/19 04:00 76 10/11/19 00:00 83 10/11/19 00:00 97.2 92 18 118/70 (86) 93 10/10/19 21:00 Room Air 10/10/19 20:00 102 10/10/19 20:00 98.5 103 20 129/67 (87) 93 10/10/19 16:00 98.4 84 20 112/66 (81) 97 10/10/19 15:59 85 10/10/19 12:00 97.6 87 18 102/65 (77) 100 10/10/19 12:00 87 Intake and Output 10/10/19 10/11/19 19:00 07:00 Intake Total 140 ml Output Total 1400 ml Balance -1260 ml Intake Oral 140 ml Output Urine Total 1400 ml # Voids 3 2 Laboratory Tests 10/11/19 06:54: White Blood Count 6.5, Red Blood Count 2.79L, Hemoglobin 8.5L, Hematocrit 25.5L , Mean Corpuscular Volume 91, Mean Corpuscular Hemoglobin 30.3, Mean Corpuscular Hemoglobin Concent 33.2, Red Cell Distribution Width 13.5, Platelet Count 436, Mean Platelet Volume 4.4L, Neutrophils (%) (Auto) 77.6H, Lymphocytes (%) (Auto) 14.2L, Monocytes (%) (Auto) 6.6, Eosinophils (%) (Auto) 1.0, Basophils (%) (Auto) 0.6, Sodium Level 143, Potassium Level 4.1, Chloride Level 112H, Carbon Dioxide Level 17L, Anion Gap 14, Blood Urea Nitrogen 55H, Creatinine 3.2H, Estimat Glomerular Filtration Rate 14.1, Glucose Level 112H, Uric Acid 8.2H, Calcium Level 8.6, Phosphorus Level 4.0, Magnesium Level 1.6L, Total Bilirubin 0.3, Aspartate Amino Transf (AST/SGOT) 16, Alanine Aminotransferase (ALT/SGPT) 10L, Alkaline Phosphatase 90, C-Reactive Protein, Quantitative 16.6H, Pro-B-Type Natriuretic Peptide 1876H, Total Protein 7.5, Albumin 2.0L, Globulin 5.5, Albumin/Globulin Ratio 0.4L Height (Feet): 5 Height (Inches): 0.00 Weight (Pounds): 87 General Appearance: no apparent distress Cardiovascular: tachycardia Respiratory/Chest: decreased breath sounds Abdomen: soft Isma Unger MD Oct 11, 2019 11:56
[2019-10-11 12:00] VITALS: BP 126/65
[2019-10-11 16:00] VITALS: BP 125/74
--- NOTE | 2019-10-11 19:35 | NUR ---
NURSE NOTES: Received report from GLORIA Kline. Patient is in bed, awake, alert, and responsive. Breathing regular and unlabored with no s/s of SOB noted. Patient denies any pain or discomfort at this time. Patient's son is at bed-side. IV access is intact, patent, and running fluids at prescribed rate. Bed remains in lowest position, breaks engaged, and call light is within reach at all times. All other needs attended to, patient remains stable, will continue to monitor.
[2019-10-11 20:00] VITALS: BP 124/67
[2019-10-12] VITALS: BP 123/67
[2019-10-12 04:00] VITALS: BP 130/63
[2019-10-12] MEDS: D5NS 1,000 ML IV SCH ×2 (04:51→17:20)
--- NOTE | 2019-10-12 07:31 | NUR ---
HAND-OFF: Report given to GLORIA Falk. Plan of care endorsed.
[2019-10-12 07:48] LABS: BASOPHILS % (AUTO) 0.7 % (0.0-2.0); EOSINOPHILS % (AUTO) 1.3 % (0.0-3.0); HEMATOCRIT 24.4 % (37.0-47.0); HEMOGLOBIN 8.3 G/DL (12.0-16.0); LYMPHOCYTES % (AUTO) 17.5 % (20.0-45.0); MEAN CORPUSCULAR VOLUME 90 FL (80-99); MONOCYTES % (AUTO) 5.1 % (1.0-10.0); NEUTROPHILS % (AUTO) 75.4 % (45.0-75.0); PLATELET COUNT 427 K/UL (150-450); RED BLOOD COUNT 2.72 M/UL (4.20-5.40); RED CELL DISTRIBUTION WIDTH 13.7 % (11.6-14.8); WHITE BLOOD COUNT 5.9 K/UL (4.8-10.8)
--- NOTE | 2019-10-12 08:00 | NUR ---
NURSE NOTES: Report received by Tanja CASTRO. Patient is observed in bed, awake, alert, oriented, and able to make needs known. Respiratory even and unlabored. Denies pain at this time. IV site is asymptomatic, patent, and intact. Bed is in lowest position with side rails up x2, and brakes are engaged. Bed alarm is on. Encouraged patient to use call light when in need of assistance, pt verbalized understanding. Will continue to monitor.
[2019-10-12 08:15] LABS: ALANINE AMINOTRANSFERASE 8 U/L (12-78); ALBUMIN 1.9 G/DL (3.4-5.0); ALBUMIN/GLOBULIN RATIO 0.4 (1.0-2.7); ALKALINE PHOSPHATASE 80 U/L (46-116); ANION GAP 12 mmol/L (5-15); ASPARTATE AMINO TRANSFERASE 17 U/L (15-37); BILIRUBIN,TOTAL 0.3 MG/DL (0.2-1.0); BLOOD UREA NITROGEN 44 mg/dL (7-18); CALCIUM 8.7 MG/DL (8.5-10.1); CARBON DIOXIDE 17 MMOL/L (21-32); CHLORIDE 115 MMOL/L (98-107); CREATININE 2.8 MG/DL (0.55-1.30); PHOSPHORUS 4.2 MG/DL (2.5-4.9); POTASSIUM 4.2 MMOL/L (3.5-5.1); SODIUM 144 MMOL/L (136-145)
[2019-10-12 08:33] VITALS: BP 123/68
[2019-10-12] MEDS: Azithromycin 250mg tab ORAL SCH (09:36)
[2019-10-12] MEDS: Cefepime HCl 500 MG in D5W 55 ML IVPB SCH (09:37)
[2019-10-12] MEDS: Docusate 100mg cap ORAL SCH ×2 (09:37→17:54)
[2019-10-12] MEDS: Heparin 5000 units/ml inj SUBQ SCH (09:38)
--- NOTE | 2019-10-12 10:38 | General Progress Note ---
Assessment/Plan Problem List: (1) Anemia ICD Codes: D64.9 - Anemia, unspecified SNOMED: 001337456 (2) Renal insufficiency ICD Codes: N28.9 - Disorder of kidney and ureter, unspecified SNOMED: 639883773, 928649120 (3) Dyspnea ICD Codes: R06.00 - Dyspnea, unspecified SNOMED: 167396922 (4) Pulmonary congestion ICD Codes: R09.89 - Other specified symptoms and signs involving the circulatory and respiratory systems SNOMED: 63492009 (5) Pneumonia ICD Codes: J18.9 - Pneumonia, unspecified organism SNOMED: 034400920 Status: stable, progressing Assessment/Plan: o2 pulm tx abx pt diet cbc bmp am dc to [facility] Subjective Constitutional: Reports: weakness Respiratory: Reports: shortness of breath Allergies: Coded Allergies: No Known Allergies (Unverified , 10/02/15) All Systems: reviewed and negative except above Subjective sitting calm Objective Last 24 Hour Vital Signs Date Time Temp Pulse Resp B/P (MAP) Pulse Ox O2 Delivery O2 Flow Rate FiO2 10/12/19 08:33 97.9 93 18 123/68 (86) 95 10/12/19 04:00 77 10/12/19 04:00 98.1 70 18 130/63 (85) 95 10/12/19 00:00 76 10/12/19 00:00 97.7 83 18 123/67 (85) 95 10/11/19 21:00 Room Air 10/11/19 20:00 97.3 78 17 124/67 (86) 95 10/11/19 20:00 85 10/11/19 16:23 78 10/11/19 16:00 97.9 80 19 125/74 (91) 98 10/11/19 12:00 61 10/11/19 12:00 97.7 79 19 126/65 (85) 96 Intake and Output 10/11/19 10/12/19 19:00 07:00 Intake Total 950 ml Balance 950 ml Intake Oral 950 ml # Voids 4 3 Laboratory Tests 10/12/19 07:16: White Blood Count 5.9, Red Blood Count 2.72L, Hemoglobin 8.3L, Hematocrit 24.4L , Mean Corpuscular Volume 90, Mean Corpuscular Hemoglobin 30.4, Mean Corpuscular Hemoglobin Concent 33.9, Red Cell Distribution Width 13.7, Platelet Count 427, Mean Platelet Volume 4.5L, Neutrophils (%) (Auto) 75.4H, Lymphocytes (%) (Auto) 17.5L, Monocytes (%) (Auto) 5.1, Eosinophils (%) (Auto) 1.3, Basophils (%) (Auto) 0.7, Sodium Level 144, Potassium Level 4.2, Chloride Level 115H, Carbon Dioxide Level 17L, Anion Gap 12, Blood Urea Nitrogen 44H, Creatinine 2.8H, Estimat Glomerular Filtration Rate 16.5, Glucose Level 100, Calcium Level 8.7, Phosphorus Level 4.2, Magnesium Level 1.4L, Total Bilirubin 0.3, Aspartate Amino Transf (AST/SGOT) 17, Alanine Aminotransferase (ALT/SGPT) 8L, Alkaline Phosphatase 80, Total Protein 7.2, Albumin 1.9L, Globulin 5.3, Albumin/Globulin Ratio 0.4L Height (Feet): 5 Height (Inches): 0.00 Weight (Pounds): 87 General Appearance: lethargic EENT: normal ENT inspection Neck: normal alignment Cardiovascular: normal peripheral pulses, normal rate, regular rhythm Respiratory/Chest: chest wall non-tender, lungs clear, normal breath sounds Abdomen: normal bowel sounds, non tender, soft Extremities: normal inspection Edema: no edema noted Arm (L), no edema noted Arm (R), no edema noted Leg (L), no edema noted Leg (R), no edema noted Pedal (L), no edema noted Pedal (R), no edema noted Generalized Neurologic: responsive, motor weakness Skin: normal pigmentation, warm/dry Isaak Herrera DO Oct 12, 2019 10:38
--- NOTE | 2019-10-12 10:57 | Infectious Diseases Prog Note ---
Assessment/Plan Assessment/Plan Assessment: Sepsis Probable PNA -CXR Bilateral interstitial and airspace infiltrates versus edema. Correlate with clinical findings Mild leukocytosis Afebrile -ua no pyuria; ucx NTD ROLANDO on CKD RA hx of pulmonary MAC emphysema osteoporosis hx of pyelonephritis 04/2019 hx of multiple episodes of pneumonia Plan: -Continue PO linezolid # 3/5 given ROLANDO -continue empiric Cefepiem #4/7 and Azithromycin # 3/5 for atypical coverage - 10/09/19 SP Vancomycin #2 -f/u cx -Monitor CBC/CMP, temperatures -f/u influenza sc -aspiration precautions -Renal f/u -legionella ag urine Thank you for this consultation. Will continue to follow along with you. Subjective Allergies: Coded Allergies: No Known Allergies (Unverified , 10/02/15) Subjective comfortable no new complain Objective Vital Signs Last 24 Hour Vital Signs Date Time Temp Pulse Resp B/P (MAP) Pulse Ox O2 Delivery O2 Flow Rate FiO2 10/12/19 08:33 97.9 93 18 123/68 (86) 95 10/12/19 04:00 77 10/12/19 04:00 98.1 70 18 130/63 (85) 95 10/12/19 00:00 76 10/12/19 00:00 97.7 83 18 123/67 (85) 95 10/11/19 21:00 Room Air 10/11/19 20:00 97.3 78 17 124/67 (86) 95 10/11/19 20:00 85 10/11/19 16:23 78 10/11/19 16:00 97.9 80 19 125/74 (91) 98 10/11/19 12:00 61 10/11/19 12:00 97.7 79 19 126/65 (85) 96 Height (Feet): 5 Height (Inches): 0.00 Weight (Pounds): 87 Respiratory/Chest: lungs clear Cardiovascular: regular rhythm Abdomen: soft, non tender Microbiology Date/Time Source Procedure Growth Status 10/10/19 10:45 Nasal Nares - Final Complete 10/10/19 10:45 Nasal Nares - Final Complete Laboratory Tests Test 10/12/19 07:16 White Blood Count 5.9 K/UL (4.8-10.8) Red Blood Count 2.72 M/UL (4.20-5.40) L Hemoglobin 8.3 G/DL (12.0-16.0) L Hematocrit 24.4 % (37.0-47.0) L Mean Corpuscular Volume 90 FL (80-99) Mean Corpuscular Hemoglobin 30.4 PG (27.0-31.0) Mean Corpuscular Hemoglobin Concent 33.9 G/DL (32.0-36.0) Red Cell Distribution Width 13.7 % (11.6-14.8) Platelet Count 427 K/UL (150-450) Mean Platelet Volume 4.5 FL (6.5-10.1) L Neutrophils (%) (Auto) 75.4 % (45.0-75.0) H Lymphocytes (%) (Auto) 17.5 % (20.0-45.0) L Monocytes (%) (Auto) 5.1 % (1.0-10.0) Eosinophils (%) (Auto) 1.3 % (0.0-3.0) Basophils (%) (Auto) 0.7 % (0.0-2.0) Sodium Level 144 MMOL/L (136-145) Potassium Level 4.2 MMOL/L (3.5-5.1) Chloride Level 115 MMOL/L (98-107) H Carbon Dioxide Level 17 MMOL/L (21-32) L Anion Gap 12 mmol/L (5-15) Blood Urea Nitrogen 44 mg/dL (7-18) H Creatinine 2.8 MG/DL (0.55-1.30) H Estimat Glomerular Filtration Rate 16.5 mL/min (>60) Glucose Level 100 MG/DL (74-106) Calcium Level 8.7 MG/DL (8.5-10.1) Phosphorus Level 4.2 MG/DL (2.5-4.9) Magnesium Level 1.4 MG/DL (1.8-2.4) L Total Bilirubin 0.3 MG/DL (0.2-1.0) Aspartate Amino Transf (AST/SGOT) 17 U/L (15-37) Alanine Aminotransferase (ALT/SGPT) 8 U/L (12-78) L Alkaline Phosphatase 80 U/L (46-116) Total Protein 7.2 G/DL (6.4-8.2) Albumin 1.9 G/DL (3.4-5.0) L Globulin 5.3 g/dL Albumin/Globulin Ratio 0.4 (1.0-2.7) L Current Medications Medications (Trade) Dose Ordered Sig/Floyd Route PRN Reason Start Time Stop Time Status Last Admin Dose Admin Acetaminophen (Tylenol) 650 mg Q4H PRN ORAL FEVER 10/08/19 16:00 11/07/19 15:59 10/08/19 19:04 Albuterol/ Ipratropium (Albuterol/ Ipratropium) 3 ml Q4H PRN HHN Shortness of Breath 10/08/19 16:00 10/13/19 15:59 Azithromycin (Zithromax) 500 mg DAILY ORAL 10/09/19 14:00 10/16/19 13:59 10/12/19 09:36 Cefepime HCl 500 mg/Dextrose 55 ml @ 110 mls/hr Q24H IVPB 10/09/19 09:00 10/16/19 08:59 10/12/19 09:37 Dextrose (Dextrose 50%) 25 ml Q30M PRN IV Hypoglycemia 10/08/19 16:00 11/07/19 15:59 Dextrose (Dextrose 50%) 50 ml Q30M PRN IV Hypoglycemia 10/08/19 16:00 11/07/19 15:59 Dextrose/Sodium Chloride 1,000 ml @ 75 mls/hr [id number] IV 10/10/19 12:00 11/08/19 11:59 10/12/19 04:51 Docusate Sodium (Colace) 100 mg TWICE A DAY ORAL 10/09/19 18:00 11/08/19 17:59 10/12/19 09:37 Epoetin Elkin (Epoetin Elkin-EPBX(NON ESRD)) 10,000 unit SAT-SAT-SAT SUBQ 10/12/19 21:00 11/11/19 20:59 Heparin Sodium (Porcine) (Heparin 5000 units/ml) 5,000 units EVERY 12 HOURS SUBQ 10/08/19 21:00 11/07/19 20:59 10/12/19 09:38 Linezolid (Zyvox) 600 mg EVERY 12 HOURS ORAL 10/09/19 21:00 10/14/19 20:59 10/12/19 09:37 Magnesium Sulfate 100 ml @ 100 mls/hr Q1H IVPB 10/12/19 09:00 10/12/19 12:59 10/12/19 09:37 Ondansetron HCl (Zofran) 4 mg Q6H PRN IVP Nausea & Vomiting 10/08/19 16:00 11/07/19 15:59 10/11/19 17:54 Pantoprazole (Protonix) 40 mg DAILY ORAL 10/09/19 13:45 11/08/19 13:44 10/12/19 09:37 Polyethylene Glycol (Miralax) 17 gm DAILYPRN PRN ORAL Constipation 10/08/19 16:00 11/07/19 15:59 Ladarius High MD Oct 12, 2019 10:57
--- NOTE | 2019-10-12 11:17 | Nephrology Progress Note ---
Assessment/Plan Problem List: (1) Renal failure (ARF), acute on chronic Assessment: Cr higher (2) Severe protein-calorie malnutrition (3) Severe anemia Assessment Patient admitted with sepsis / Pneumonia (1) ROLANDO (acute kidney injury) (2) Renal failure (ARF), acute on chronic (3) Severe anemia (4) Protein calorie mal nutrition- BMI 17.2 (5) h/o UTI Others: h/o bronchitis h/o abdominal pain and nausea, possibly enteritis ( by CT scan) RA Plan previously given IV Iron, will give more EPO SQ Avoid nephrotoxics hydrate- Anemia workup per orders Subjective ROS Limited/Unobtainable: No Constitutional: Reports: malaise Objective Objective Last 24 Hour Vital Signs Date Time Temp Pulse Resp B/P (MAP) Pulse Ox O2 Delivery O2 Flow Rate FiO2 10/12/19 09:00 Room Air 10/12/19 08:33 97.9 93 18 123/68 (86) 95 10/12/19 04:00 77 10/12/19 04:00 98.1 70 18 130/63 (85) 95 10/12/19 00:00 76 10/12/19 00:00 97.7 83 18 123/67 (85) 95 10/11/19 21:00 Room Air 10/11/19 20:00 97.3 78 17 124/67 (86) 95 10/11/19 20:00 85 10/11/19 16:23 78 10/11/19 16:00 97.9 80 19 125/74 (91) 98 10/11/19 12:00 61 10/11/19 12:00 97.7 79 19 126/65 (85) 96 Intake and Output 10/11/19 10/12/19 19:00 07:00 Intake Total 950 ml Balance 950 ml Intake Oral 950 ml # Voids 4 3 Current Medications Medications (Trade) Dose Ordered Sig/Floyd Route PRN Reason Start Time Stop Time Status Last Admin Dose Admin Acetaminophen (Tylenol) 650 mg Q4H PRN ORAL FEVER 10/08/19 16:00 11/07/19 15:59 10/08/19 19:04 Albuterol/ Ipratropium (Albuterol/ Ipratropium) 3 ml Q4H PRN HHN Shortness of Breath 10/08/19 16:00 10/13/19 15:59 Azithromycin (Zithromax) 500 mg DAILY ORAL 10/09/19 14:00 10/16/19 13:59 10/12/19 09:36 Cefepime HCl 500 mg/Dextrose 55 ml @ 110 mls/hr Q24H IVPB 10/09/19 09:00 10/16/19 08:59 10/12/19 09:37 Dextrose (Dextrose 50%) 25 ml Q30M PRN IV Hypoglycemia 10/08/19 16:00 11/07/19 15:59 Dextrose (Dextrose 50%) 50 ml Q30M PRN IV Hypoglycemia 10/08/19 16:00 11/07/19 15:59 Dextrose/Sodium Chloride 1,000 ml @ 75 mls/hr [id number] IV 10/10/19 12:00 11/08/19 11:59 10/12/19 04:51 Docusate Sodium (Colace) 100 mg TWICE A DAY ORAL 10/09/19 18:00 11/08/19 17:59 10/12/19 09:37 Epoetin Elkin (Epoetin Elkin-EPBX(NON ESRD)) 10,000 unit SAT-SAT-SAT SUBQ 10/12/19 21:00 11/11/19 20:59 Heparin Sodium (Porcine) (Heparin 5000 units/ml) 5,000 units EVERY 12 HOURS SUBQ 10/08/19 21:00 11/07/19 20:59 10/12/19 09:38 Linezolid (Zyvox) 600 mg EVERY 12 HOURS ORAL 10/09/19 21:00 10/14/19 20:59 10/12/19 09:37 Magnesium Sulfate 100 ml @ 100 mls/hr Q1H IVPB 10/12/19 09:00 10/12/19 12:59 10/12/19 11:07 Ondansetron HCl (Zofran) 4 mg Q6H PRN IVP Nausea & Vomiting 10/08/19 16:00 11/07/19 15:59 10/11/19 17:54 Pantoprazole (Protonix) 40 mg DAILY ORAL 10/09/19 13:45 11/08/19 13:44 10/12/19 09:37 Polyethylene Glycol (Miralax) 17 gm DAILYPRN PRN ORAL Constipation 10/08/19 16:00 11/07/19 15:59 Laboratory Tests 10/12/19 07:16: White Blood Count 5.9, Red Blood Count 2.72L, Hemoglobin 8.3L, Hematocrit 24.4L , Mean Corpuscular Volume 90, Mean Corpuscular Hemoglobin 30.4, Mean Corpuscular Hemoglobin Concent 33.9, Red Cell Distribution Width 13.7, Platelet Count 427, Mean Platelet Volume 4.5L, Neutrophils (%) (Auto) 75.4H, Lymphocytes (%) (Auto) 17.5L, Monocytes (%) (Auto) 5.1, Eosinophils (%) (Auto) 1.3, Basophils (%) (Auto) 0.7, Sodium Level 144, Potassium Level 4.2, Chloride Level 115H, Carbon Dioxide Level 17L, Anion Gap 12, Blood Urea Nitrogen 44H, Creatinine 2.8H, Estimat Glomerular Filtration Rate 16.5, Glucose Level 100, Calcium Level 8.7, Phosphorus Level 4.2, Magnesium Level 1.4L, Total Bilirubin 0.3, Aspartate Amino Transf (AST/SGOT) 17, Alanine Aminotransferase (ALT/SGPT) 8L, Alkaline Phosphatase 80, Total Protein 7.2, Albumin 1.9L, Globulin 5.3, Albumin/Globulin Ratio 0.4L Height (Feet): 5 Height (Inches): 0.00 Weight (Pounds): 87 General Appearance: no apparent distress Cardiovascular: normal rate Respiratory/Chest: decreased breath sounds Abdomen: soft Objective no change Isma Unger MD Oct 12, 2019 11:17
--- NOTE | 2019-10-12 11:52 | NUR ---
*-*DISCHARGE PLANNING*-* PATIENT HAS BEEN REFERRED TO: [facility] P: [phone] F: [phone] *-*CLINICALS FAXED*-*
[2019-10-12 12:00] VITALS: BP 111/60
--- NOTE | 2019-10-12 14:14 | NUR ---
CASE MANAGEMENT: INITIAL REVIEW 74YR OLD FEMALE FROM HOME CC: FLU LIKE SYMPTOMS SI: PULMONARY CONGESTION / DYSPNEA 99.0 87 17 102/61 93% ON RA WBC 11.3 H/H 8.5/25.6 CO2-16 ANION GAP 18 BUN 78 CREAT 3.0 BG 115 IS:IV ROCEPHIN X1 IV LASIX X1 CHEST X-RAY- Bilateral interstitial and airspace infiltrates versus edema \: 2E TELE UNIT CASE MANAGEMENT:REVIEW 10/09/19 SI: PULMONARY CONGESTION / DYSPNEA 99.4 98 21 103/55 94% ON RA IS:IV D5@75ML/HR IV CEFEPIME Q24HR ZYVOX PO QD ZITHROMAX PO QD HEPARIN SQ BID \: 2E TELE UNIT CASE MANAGEMENT:REVIEW 10/12/19 SI: PULMONARY CONGESTION / DYSPNEA 98.1 77 18 130/63 95% ON RA H/H 8.3/24.4 CL-115 CO2-17 BUN 44 CREAT 2.8 MG 1.4 IS:IV MG SULFATE X4 BAGS IV D5@75ML/HR IV CEFEPIME Q24HR ZYVOX PO QD ZITHROMAX PO QD IV MG SULFATE X4 BAGS HEPARIN SQ BID \: 2E TELE UNIT PLAN: [facility]UNC[facility] PARKER CONSULT
--- NOTE | 2019-10-12 15:56 | NUR ---
NURSE NOTES: per Dr. Herrera's order, patient's ok to dc if cleared by pulmo and ID . Contacted Dr. Perez and Dr. High, awaiting call back.
[2019-10-12 16:06] VITALS: BP 125/75
--- NOTE | 2019-10-12 16:58 | NUR ---
DISCHARGE PLANNED: PATIENT HAS BEEN ACCEPTED TO [facility] T: [phone]
[2019-10-12] MEDS ORDERED: COLACE100 MG ORAL (17:00)
--- NOTE | 2019-10-12 17:00 | NUR ---
NURSE NOTES: Spoke to Dr. High regarding patient's discharge status. Per MD, instruct patient and patient's family to inform pharmacy to contact him directly for antibiotics. Will educate patient and family.
[2019-10-12] MEDS ORDERED: RETACRIT2000 UNIT/ SUBQ (17:02)
[2019-10-12] MEDS ORDERED: HEPARIN SO5000 UNIT2 SUBQ (17:03)
[2019-10-12] MEDS ORDERED: PANTOPRAZOLE SO20 MG ORAL (17:05)
[2019-10-12] MEDS ORDERED: LINEZOLID600 MG PO (17:05)
[2019-10-12] MEDS ORDERED: MIRALAX17 G2 ORAL (17:06)
--- NOTE | 2019-10-12 19:30 | NUR ---
NURSE NOTES: Patient is picked up by family member. Patient is in stable condition. IV catheter removed and intact. Skin is intact. Vital signs are stable. Belongings checked and given back to the patient. Educated patient and family member regarding post discharge care, patient and family members verbalized understanding. elementary assistant teacher removed and given back to the bed worker.
[2019-10-12] MEDS ORDERED: Epoetin Alfa-EPBX (NON ESRD)10,000 unit/ml vial SUBQ SCH (21:00)
--- NOTE | 2019-10-13 08:28 | Discharge Summary ---
Discharge Summary Discharge Summary _ DATE OF ADMISSION: 10/08/2019 DATE OF DISCHARGE: 10/12/2019 DISCHARGED BY: Dr. Herrera REASON FOR ADMISSION: 74 years old female with past medical history of kidney disease pyelonephritis , rheumatoid arthritis, osteoarthritis, osteoporosis, presented with cold- like symptoms. She reported runny nose and cough for the last week. Patient reported generalized weakness and mild headache. She also reported some nausea sensation, but no vomiting. No chest pain or shortness of breath, no focal weakness. Upon evaluation vital signs were stable. Laboratory work-up revealed mild leukocytosis with, WBC 11.3, hemoglobin 8.5 hematocrit 25.6. BUN 78, creatinine 3.0. Glucose 115. Troponin negative. Stable LFT. Albumin 2.5. Urinalysis revealed no pyuria ,moderate bacteria , +3 protein. Chest x-ray demonstrated bilateral interstitial and airspace infiltrates versus edema. Patient admitted for possible pneumonia. CONSULTANTS: ID specialist Dr. Lopez mobile home mechanic Dr. Unger HOSPITAL COURSE: Patient admitted and started on empiric antibiotics. Supplemental oxygen provided and titrated to keep oximetry above 92%. Pulmonary toilet with bronchodilator via HHN provided. Influenza screen was negative. Urine culture revealed mixed gram-positive organisms. Antibiotic provided as per ID recommendation. Leukocytosis resolved. Patient will need to continue antibiotics on discharge to complete the course. Development Associate followed. Patient was hydrated. Renal parameters and electrolytes were closely monitored , electrolytes corrected as needed , and nephrotoxins were avoided. Hemoglobin and hematocrit were closely monitored with goal to keep hemoglobin above 7. Anemia work-up was consistent with anemia of chronic disease. Iron low, ferritin 393. Patient started on Epogen. Patient received 1 dose of IV iron. Prior to discharge hemoglobin 8.3, hematocrit 24.4 . DVT prophylaxis provided. Magnesium was replaced. Protein supplements implemented in plan of care as per registered veterinary technician recommendation. GI prophylaxis provided. Bowel regimen instituted. Supportive care provided. Patient was working with physical therapist. Fall precaution maintained. Creatinine trending down. Patient clinically stabilized. Patient was ready for discharge home with home health services to follow. FINAL DIAGNOSES: Sepsis Probable pneumonia Renal failure, acute on chronic Severe protein calorie malnutrition Severe anemia DISCHARGE MEDICATIONS: See Medication Reconciliation list. DISCHARGE INSTRUCTIONS: Patient was discharged home with home health services. Follow up with primary care provider in one week. I have been assigned to dictate discharge summary for this account. I was not involved in the patient's management. Nora Hinojosa NP Oct 13, 2019 08:28
== END 2019-10-12 18:59 | disposition home health service (06) | DRG 871 ==
LOC: EDBEDREQ 14:37 → EMR 14:55 → 2E 14:58 → EDBEDREQ 10-09 12:46 → 2E 10-09 12:50 → UNDOADMIN 10-09 12:50 → 2E 10-09 14:08
DX: A41.9 Sepsis, unspecified organism (principal); J18.9 Pneumonia, unspecified organism; E43 Unspecified severe protein-calorie malnutrition; N17.9 Acute kidney failure, unspecified; E46 Unspecified protein-calorie malnutrition; Z68.1 Body mass index [BMI] 19.9 or less, adult; D64.9 Anemia, unspecified; M06.9 Rheumatoid arthritis, unspecified; M19.90 Unspecified osteoarthritis, unspecified site; N18.9 Chronic kidney disease, unspecified
CPT/HCPCS: 36415; 71045; 80053; 80061; 80069; 81003; 82550; 82553; 82607; 82728; 82746; 82977; 83036; 83540; 83550; 83735; 83880; 84100; 84443; 84484; 84550; 85007; 85025; 86140; 86710; 87086; 93005; 96365; 96375; 99285; J2405; J7030

== ENCOUNTER 2020-03-13 15:37 | Inpatient (IN) | payer MEDICARE, OTHER ==
[~2020-03-13] VITALS: Ht 154.9 cm; Wt 39.9 kg
[~2020-03-13 15:37] MED LIST changes: +COLACE100 MG ORAL; +HEPARIN SO5000 UNIT2 SUBQ; +LINEZOLID600 MG PO; +MIRALAX17 G2 ORAL; +PANTOPRAZOLE SO20 MG ORAL; +RETACRIT2000 UNIT/ SUBQ
[2020-03-13 15:57] VITALS: BP 112/65
[2020-03-13] MEDS ORDERED: FUROSEMIDE20 M1 ORAL (16:11)
[2020-03-13] MEDS ORDERED: FUSION PLUS CA1 EACH PO (16:11)
--- NOTE | 2020-03-13 16:29 | Emergency Room Report ---
History of Present Illness General Chief Complaint: Edema Source: Patient Present Illness HPI Disclaimer: Please note that this report is being documented using [employer] technology. This can lead to erroneous entry secondary to incorrect interpretation by the dictating instrument. HPI: 74-year-old female history of chronic kidney disease, osteoarthritis, history of poor circulation, presents for bilateral lower extremity pain and edema. Symptoms present for the past 10 days or so. She denies any chest pain shortness of breath nausea vomiting or fevers. Pain is worse in the right lower extremity about 8 out of 10 aching in nature nonradiating. Accountant Certified Public: Rolle. Patient states she recently had a biopsy at [facility] showing inflammatory changes within her kidney. Denies urinary complaint. PMH: As above PSH: Reviewed Social Hx: No smoking or illicit drug use Allergies: Coded Allergies: No Known Allergies (Unverified , 10/02/15) COVID-19 Screening Contact w/high risk pt: No Experienced COVID-19 symptoms?: No COVID-19 Testing performed CAFE LEAD: Yes COVID-19 Screening: Negative COVID-19 COVID-19 Testing Source: 2 months ago. Patient History Reviewed Nursing Documentation: PMH: Agreed; PSxH: Agreed Nursing Documentation-PMH Past Medical History: No History, Except For Hx Cardiac Problems: No - RA Hx Hypertension: No Hx Pacemaker: No Hx Asthma: No Hx COPD: No - PNEUMONIA Hx Diabetes: No Hx Cancer: No Hx Gastrointestinal Problems: No - Pyelonephritis Hx Dialysis: No - "Kidney problem" Hx Neurological Problems: No Hx Cerebrovascular Accident: No Hx Seizures: No Hx Headaches: Yes Review of Systems All Other Systems: negative except mentioned in HPI Physical Exam Vital Signs Date Time Temp Pulse Resp B/P (MAP) Pulse Ox O2 Delivery O2 Flow Rate FiO2 03/13/20 15:43 98.4 70 15 112/65 (81) 98 Room Air Sp02 EP Interpretation: reviewed, normal General Appearance: no apparent distress, other - Elderly-appearing Head: normocephalic, atraumatic Eyes: bilateral eye PERRL, bilateral eye EOMI ENT: hearing grossly normal, moist mucus membranes Neck: full range of motion, supple Respiratory: lungs clear, normal breath sounds, no rhonchi, no respiratory distress, no retraction, no wheezing Cardiovascular #1: normal peripheral pulses, regular rate, rhythm, no murmur Gastrointestinal: non tender, soft, non-distended, no guarding Musculoskeletal: other - Bilateral lower extremity edema noted 3+ up to the knees bilaterally. Mild erythema noted of right foot, Neurologic: alert, oriented x3, no focal defects Skin: normal color, warm/dry Medical Decision Making Diagnostic Impression: Primary Impression: DVT (deep venous thrombosis) Additional Impression: CKD (chronic kidney disease) ER Course MDM: Differential diagnosis included but not limited to dependent edema, chronic kidney disease, vascular disease, cellulitis to name a few rtery disease , Clinical course-laboratory studies, venous and arterial ultrasound ordered. Laboratory studies showed no leukocytosis. Patient did have bilateral lower extremity edema. Was found to have a DVT in the left lower extremity. Arterial ultrasound demonstrated arterial flow through both lower extremities. Due to the findings of DVT I spoke with patient's editor dictionary, who agreed to admit the patient, Dr. Rolle Labs - Laboratory Tests Test 03/13/20 16:19 White Blood Count 6.4 K/UL (4.8-10.8) Red Blood Count 3.54 M/UL (4.20-5.40) L Hemoglobin 11.1 G/DL (12.0-16.0) L Hematocrit 34.6 % (37.0-47.0) L Mean Corpuscular Volume 98 FL (80-99) Mean Corpuscular Hemoglobin 31.5 PG (27.0-31.0) H Mean Corpuscular Hemoglobin Concent 32.1 G/DL (32.0-36.0) Red Cell Distribution Width 14.3 % (11.6-14.8) Platelet Count 436 K/UL (150-450) Mean Platelet Volume 5.7 FL (6.5-10.1) L Neutrophils (%) (Auto) 53.8 % (45.0-75.0) Lymphocytes (%) (Auto) 33.5 % (20.0-45.0) Monocytes (%) (Auto) 10.3 % (1.0-10.0) H Eosinophils (%) (Auto) 1.1 % (0.0-3.0) Basophils (%) (Auto) 1.3 % (0.0-2.0) Prothrombin Time 10.9 SEC (9.30-11.50) Prothrombin Time INR 1.0 (0.9-1.1) Activated Partial Thromboplast Time 26 SEC (23-33) Urine Color Pale yellow Urine Appearance Clear Urine pH 6 (4.5-8.0) Urine Specific [place] 1.010 (1.005-1.035) Urine Protein 3+ (NEGATIVE) H Urine Glucose (UA) Negative (NEGATIVE) Urine Ketones Negative (NEGATIVE) Urine Blood 4+ (NEGATIVE) H Urine Nitrite Negative (NEGATIVE) Urine Bilirubin Negative (NEGATIVE) Urine Urobilinogen Normal MG/DL (0.0-1.0) Urine Leukocyte Esterase Negative (NEGATIVE) Urine RBC 10-15 /HPF (0 - 2) H Urine WBC 2-4 /HPF (0 - 2) Urine Squamous Epithelial Cells None /LPF (NONE/OCC) Urine Bacteria None /HPF (NONE) Sodium Level 141 MMOL/L (136-145) Potassium Level 4.2 MMOL/L (3.5-5.1) Chloride Level 108 MMOL/L (98-107) H Carbon Dioxide Level 24 MMOL/L (21-32) Anion Gap 9 mmol/L (5-15) Blood Urea Nitrogen 57 mg/dL (7-18) H Creatinine 2.0 MG/DL (0.55-1.30) H Estimated Glomerular Filtration Rate 24.3 mL/min (>60) Glucose Level 121 MG/DL (74-106) H Calcium Level 8.9 MG/DL (8.5-10.1) Total Bilirubin 0.1 MG/DL (0.2-1.0) L Aspartate Amino Transferase (AST) 35 U/L (15-37) Alanine Aminotransferase (ALT) 32 U/L (12-78) Alkaline Phosphatase 133 U/L (46-116) H Pro-B-Type Natriuretic Peptide 850 pg/mL (0-125) H Total Protein 7.3 G/DL (6.4-8.2) Albumin 3.2 G/DL (3.4-5.0) L Globulin 4.1 g/dL Albumin/Globulin Ratio 0.8 (1.0-2.7) L Plan to admit patient to the medical floor. Heparin drip ordered. CT/MRI/US Diagnostic Results CT/MRI/US Diagnostic Results : Imaging Test Ordered: Ultrasound left lower extremity Impression DVT left lower extremity Last Vital Signs Date Time Temp Pulse Resp B/P (MAP) Pulse Ox O2 Delivery O2 Flow Rate FiO2 7/26/20 15:57 98.4 15 112/65 98 Room Air 03/13/20 15:57 70 Disposition: ADMITTED INPATIENT Condition: Serious Referrals: NON PHYSICIAN (PCP) Franck Hicks M.D. Mar 13, 2020 16:29
[2020-03-13] MEDS ORDERED: Morphine Sulfate 2mg/ml Inj(IV/IM USE ONLY) IVP ONE (16:30)
[2020-03-13 16:31] LABS: APPEARANCE,URINE CLEAR; BASOPHILS % (AUTO) 1.3 % (0.0-2.0); BILIRUBIN, URINE NEGATIVE (NEGATIVE); COLOR,URINE PALE YELLOW; EOSINOPHILS % (AUTO) 1.1 % (0.0-3.0); GLUCOSE, URINE (UA) NEGATIVE (NEGATIVE); HEMATOCRIT 34.6 % (37.0-47.0); HEMOGLOBIN 11.1 G/DL (12.0-16.0); KETONES,URINE NEGATIVE (NEGATIVE); LEUKOCYTE ESTERASE ,URINE NEGATIVE (NEGATIVE); LYMPHOCYTES % (AUTO) 33.5 % (20.0-45.0); MEAN CORPUSCULAR VOLUME 98 FL (80-99); MONOCYTES % (AUTO) 10.3 % (1.0-10.0); NEUTROPHILS % (AUTO) 53.8 % (45.0-75.0); NITRITE,URINE NEGATIVE (NEGATIVE); PH,URINE 6 (4.5-8.0); PLATELET COUNT 436 K/UL (150-450); PROTEIN,URINE 3+ (NEGATIVE); RED BLOOD COUNT 3.54 M/UL (4.20-5.40); RED CELL DISTRIBUTION WIDTH 14.3 % (11.6-14.8); UROBILINOGEN,URINE NORMAL MG/DL (0.0-1.0); WHITE BLOOD COUNT 6.4 K/UL (4.8-10.8)
[2020-03-13 16:41] LABS: ANION GAP 9 mmol/L (5-15); BLOOD UREA NITROGEN 57 mg/dL (7-18); CALCIUM 8.9 MG/DL (8.5-10.1); CARBON DIOXIDE 24 MMOL/L (21-32); CHLORIDE 108 MMOL/L (98-107); POTASSIUM 4.2 MMOL/L (3.5-5.1); SODIUM 141 MMOL/L (136-145)
--- NOTE | 2020-03-13 16:51 | Diagnostic Imaging Report ---
EXAM: XR Chest, 1 View CLINICAL HISTORY: SOB TECHNIQUE: Frontal view of the chest. COMPARISON: October 08, 2019 FINDINGS: Lungs: Chronic hyperinflation. No consolidation. Pleural space: Unremarkable. No pneumothorax. Heart: Unremarkable. No cardiomegaly. Mediastinum: Unremarkable. Bones/joints: No acute abnormality IMPRESSION: 1. No acute cardiopulmonary disease. 2. Chronic hyperinflation. 3. If there is continued concern recommend frontal and lateral chest radiographs or CT. 4. Recommend evaluation to determine if this patient would meet criteria for inclusion in an annual low dose CT chest lung cancer screening protocol.
[2020-03-13 16:54] LABS: ALANINE AMINOTRANSFERASE 32 U/L (12-78); ALBUMIN 3.2 G/DL (3.4-5.0); ALBUMIN/GLOBULIN RATIO 0.8 (1.0-2.7); ALKALINE PHOSPHATASE 133 U/L (46-116); ASPARTATE AMINO TRANSFERASE 35 U/L (15-37); BILIRUBIN,TOTAL 0.1 MG/DL (0.2-1.0)
[2020-03-13] MEDS ORDERED: Morphine Sulfate 2mg/ml Inj(IV/IM USE ONLY) IVP PRN (19:15)
[2020-03-13] MEDS ORDERED: Heparin 5000 units/ml inj IV ONE (19:15)
[2020-03-13] MEDS ORDERED: Heparin 25,000u/D5W 500ml 500 ML IV SCH ×2 (19:15)
[2020-03-13 19:20] VITALS: BP 118/64
--- NOTE | 2020-03-13 20:06 | Diagnostic Imaging Report ---
EXAM: US Duplex Bilateral Lower Extremities Veins CLINICAL HISTORY: PAIN TECHNIQUE: Real-time duplex ultrasound scan of the bilateral lower extremity veins integrating B-mode two-dimensional vascular structure, Doppler spectral analysis, color flow Doppler imaging and compression. COMPARISON: No relevant prior studies available. FINDINGS: Right deep veins: Unremarkable. No DVT in the right common femoral, femoral, proximal deep femoral or popliteal veins. The veins demonstrate normal color flow, are normally compressible, with normal phasic flow and/or augmentation response. Right superficial veins: Unremarkable. No thrombus in the visualized right great saphenous vein. Left deep veins: Unremarkable. No DVT in the left common femoral, femoral, proximal deep femoral or popliteal veins. The veins demonstrate normal color flow, are normally compressible, with normal phasic flow and/or augmentation response. Left superficial veins: Unremarkable. No thrombus in the visualized left great saphenous vein. Soft tissues: Right lower extremity soft tissue edema. No popliteal cyst. IMPRESSION: No acute findings in the bilateral lower extremity veins.
[2020-03-13 21:30] VITALS: BP 132/68
[2020-03-14 00:11] VITALS: BP 144/54
[2020-03-14 03:34] VITALS: BP 121/71
[2020-03-14 07:07] LABS: ANION GAP 8 mmol/L (5-15); BLOOD UREA NITROGEN 53 mg/dL (7-18); CARBON DIOXIDE 26 MMOL/L (21-32); CHLORIDE 109 MMOL/L (98-107); CREATININE 1.9 MG/DL (0.55-1.30); SODIUM 143 MMOL/L (136-145)
[2020-03-14 08:00] VITALS: BP 87/52
[2020-03-14] MEDS ORDERED: Morphine Sulfate 2mg/ml Inj(IV/IM USE ONLY) IVP PRN ×2 (08:30→08:45)
[2020-03-14] MEDS ORDERED: traMADol 50mg tab ORAL PRN (08:45)
[2020-03-14] MEDS: Heparin 5000 units/ml inj SUBQ SCH ×2 (09:20→21:40)
--- NOTE | 2020-03-14 11:43 | Diagnostic Imaging Report ---
EXAM: Arterial Duplex Scan Bilat Leg CLINICAL HISTORY: Leg pain. COMPARISON: None TECHNIQUE: Doppler examination include grayscale images, and color and spectral doppler analysis. Segmental pressures and ABIs were not obtained. FINDINGS: Grayscale images demonstrates scattered calcified plaques bilaterally. There is biphasic flow noted in the left lower extremity. Right lower extremity has dampened monophasic flow throughout. VELOCITIES: RIGHT Common femoral artery: 73 cm/s Prox SFA: 65 cm/s Mid SFA: 87 cm/s Distal SFA: 91 cm/s Popliteal artery: 75 cm/s Posterior tibial artery: 59 cm/s Anterior tibial artery: Not visualized. LEFT Common femoral artery: 83 cm/s Prox SFA: 62 cm/s Mid SFA: 43 cm/s Distal SFA: 51 cm/s Popliteal artery: 54 cm/s Posterior tibial artery: 54 cm/s Anterior tibial artery: Not visualized. IMPRESSION: BIPHASIC FLOW IN THE LEFT LOWER EXTREMITY. DAMPENED MONOPHASIC FLOW IN THE RIGHT LOWER EXTREMITY WHICH MAY BE SECONDARY TO DECREASED COMPLIANCE OF THE VESSELS. VELOCITIES ARE IN THE NORMAL RANGE. CONSIDER CORRELATION WITH SEGMENTAL PRESSURES AND ABIs. REFERENCE VALUES: Normal velocity ranges (in Cm/sec) are as follows: ORDER SCHEDULE CLERK 95-140 SFA 75-105 popliteal 54-84 tibial 41-81 Stenosis categories: 1.5-2 X normal is 30-49% 2-4 x normal = 50-75% stenosis > 4 x normal = > 75% stenosis
--- NOTE | 2020-03-14 11:56 | Diagnostic Imaging Report ---
EXAM: X-RAY XRAY Foot 2v R CLINICAL HISTORY: Foot pain. COMPARISON: None FINDINGS: Total of 3 views of the right foot were obtained. There is generalized osteopenia. There is no fracture, bony lesions or erosions. Joint spaces are unremarkable. Soft tissue swelling noted at the dorsum of the forefoot and midfoot. IMPRESSION: SOFT TISSUE SWELLING. NO ACUTE BONY ABNORMALITY.
[2020-03-14 12:00] VITALS: BP 104/63
--- NOTE | 2020-03-14 14:00 | History and Physical Report ---
DATE OF ADMISSION: 03/13/2020 REASON FOR ADMISSION: 1. Lower extremity edema. 2. Right foot pain. HISTORY OF PRESENT ILLNESS: The patient is a pleasant 74-year-old female, well known to my nephrological service from an outpatient setting due to worsening renal function and hematuria, had been recently admitted within the last month to [facility] and had her kidney biopsy. 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 The patient was started on bolus of IV steroids and then over the last month has received doses once a week of Rituxan. She presented last night to the emergency room complaining of right lower extremity foot pain and swelling. Doppler ultrasound was negative for any DVT. She has been on prednisone 40 mg daily since discharge. ALLERGIES: No known drug allergies. PAST MEDICAL HISTORY: 1. CKD, stage 4. Baseline creatinine 2. 2. Crescentic leukocytoclastic glomerulonephritis. 3. Osteoarthritis. 4. Arthritis. PAST SURGICAL HISTORY: Renal biopsy. SOCIAL HISTORY: No tobacco, alcohol, or illicit drug use. REVIEW OF SYSTEMS: NEUROLOGIC: The patient denies headache, change in vision, syncope, or presyncopal episodes. CARDIOVASCULAR: No current chest pain, palpitations, or angina. PULMONARY: No difficulty breathing, productive cough, or sputum. GASTROINTESTINAL/GENITOURINARY: No change in urinary or bowel habits. No nausea or vomiting. ENDOCRINOLOGY: No night sweats, fevers, or chills. MUSCULOSKELETAL: The patient complaining of right foot pain. PHYSICAL EXAMINATION: VITAL SIGNS: Blood pressure 121/78, respiratory rate 16, pulse 69, temperature 96.8. GENERAL: The patient awake, alert, not otherwise in distress. HEENT: Extraocular muscles intact. No lymphadenopathy noted. CARDIOVASCULAR: S1, S2. No rubs or gallops. PULMONARY: Clear to auscultation bilaterally. No rales, rhonchi or wheezes. ABDOMEN: Nondistended and nontender. EXTREMITIES: A 2+ pitting edema right lower extremity foot worse ASSESSMENT AND PLAN: 1. Right foot pain and lower extremity edema. At this time, DVT was negative. We will try diuresing the patient carefully. The patient had been on prednisone. X-ray of the left foot to ensure no fractures. We will also call the fine artist or an orthopedist to evaluate the foot. 2. 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 We will continue prednisone and taper over three months. 3. Lower extremity edema. We will try diuresing the patient carefully. 4. DVT prophylaxis with heparin subcutaneous. 5. GI prophylaxis with Pepcid. Vicente Rolle MD DR: FRANCIA JOB#: [id number] CC: YASSINE
[2020-03-14 16:00] VITALS: BP 95/59
[2020-03-14 20:00] VITALS: BP 100/58
[2020-03-15] VITALS: BP 113/67
[2020-03-15 04:00] VITALS: BP 95/54
[2020-03-15 07:29] LABS: ANION GAP 8 mmol/L (5-15); BLOOD UREA NITROGEN 65 mg/dL (7-18); CALCIUM 8.2 MG/DL (8.5-10.1); CARBON DIOXIDE 24 MMOL/L (21-32); CHLORIDE 108 MMOL/L (98-107); CREATININE 2.3 MG/DL (0.55-1.30); POTASSIUM 3.8 MMOL/L (3.5-5.1); SODIUM 140 MMOL/L (136-145)
[2020-03-15 08:00] VITALS: BP 125/72
[2020-03-15] MEDS: Heparin 5000 units/ml inj SUBQ SCH (08:34)
[2020-03-15 12:09] VITALS: BP 99/60
--- NOTE | 2020-03-15 12:13 | Nephrology Progress Note ---
Assessment/Plan Assessment/Plan: A/P 1) RLE Edema- improved - DC on po lasix -- Gabapentin for neuropathy 2) CKD 4- on Rituxan and prednisone for pauci immune GN 3) Neuropathy- gabapentin Patient already has HH Subjective Date patient seen: Mar 15, 2020 Time patient seen: 12:10 ROS Limited/Unobtainable: No Allergies: Coded Allergies: No Known Allergies (Unverified , 10/02/15) Subjective Patient feels much better. Objective Last 24 Hour Vital Signs Date Time Temp Pulse Resp B/P (MAP) Pulse Ox O2 Delivery O2 Flow Rate FiO2 03/15/20 12:09 97.7 66 18 99/60 (73) 99 03/15/20 08:00 97.7 65 18 125/72 (89) 95 03/15/20 04:00 97.3 65 16 95/54 (68) 95 03/15/20 00:00 98.2 81 16 113/67 (82) 96 03/14/20 21:00 Room Air 03/14/20 20:00 98.1 71 16 100/58 (72) 97 03/14/20 16:00 98.1 80 18 95/59 (71) 95 Intake and Output 03/14/20 03/15/20 19:00 07:00 Intake Total 820 ml Output Total 600 ml Balance 220 ml Intake Oral 820 ml Output Urine Total 600 ml # Voids 1 3 Laboratory Tests 03/15/20 06:37: Sodium Level 140, Potassium Level 3.8, Chloride Level 108H, Carbon Dioxide Level 24, Anion Gap 8, Blood Urea Nitrogen 65H, Creatinine 2.3H, Estimat Glomerular Filtration Rate 20.7, Glucose Level 107H, Calcium Level 8.2L Height (Feet): 5 Height (Inches): 1.00 Weight (Pounds): 88 General Appearance: no apparent distress EENT: normal ENT inspection Neck: normal alignment Cardiovascular: normal rate Respiratory/Chest: lungs clear Abdomen: non tender, soft Edema: 1+ Leg (R) Vicente Rolle MD Mar 15, 2020 12:13
--- NOTE | 2020-03-15 12:14 | Discharge Instructions ---
Discharge Instructions Discharge Instructions Services at Discharge: day care Resume Normal Activity?: Yes Activity: light activity Follow Up Orders Follow up [id number] For Congestive Heart Failure Reminder Report to your physician any weight gain of 5 pounds or more in one week. Vicente Rolle MD Mar 15, 2020 12:14
--- NOTE | 2020-03-15 13:50 | CDS Physician Query ---
Clarification is required for compliance, coding accuracy, and to reflect severity of illness for this patient Dear Dr. Vicente Rolle Date: 03/15/2020 Flour Mixer/CDS Name: Kerrie Weeks Clinical Documentation states: HNP: 74-year-old female, well known to my nephrological service from an outpatient setting due to worsening renal function and hematuria...Right foot pain and lower extremity edema. At this time, DVT was negative. 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 BMI 16.6, Albumin 3.2 Please select the most appropriate option: [] Protein/Calorie Malnutrition [] Mild [] Moderate [] Severe [] Hypoalbuminemia [] Cachexia [] Underweight [] Intestinal malabsorption [] Other [] Unable to determine [] Not Applicable Present on Admission: [] Yes [] No [] Clinically Undetermined Physician signature Date Please also document in your Progress Notes and/or Discharge Summary and indicate if the condition was present on admission. MTDD
--- NOTE | 2020-03-17 08:27 | Discharge Summary ---
Discharge Summary Discharge Summary _ DATE OF ADMISSION: 03/13/2020 DATE OF DISCHARGE: 03/15/2020 DISCHARGED BY: Dr.De Marx REASON FOR ADMISSION: 74 years old female with past medical history of chronic kidney disease stage IV , glomerulonephritis, osteoarthritis, presented with right lower extremity foot pain and swelling. Patient recently was admitted to [facility] for worsening renal function and hematuria and undergone kidney biopsy. The biopsy at that time revealed pauci immune glomerulonephritis, active, with crescents. Patient started on IV steroids and was discharged on oral steroids. Patient had been on prednisone 40 mg daily since discharge. Patient also over the last month was receiving weekly dose of Rituxan. Upon evaluation no leukocytosis ,hemoglobin 11.1 ,hematocrit 34.6, platelet count 436. BUN 57, creatinine 2.0. Glucose 121. Pro BNP 850 , Stable LFT. Albumin 3.2. Urinalysis revealed +3 protein, no evidence of urinary tract infection Chest x-ray demonstrated no acute cardiopulmonary disease. Chronic hyperinflation . Patient medicated for pain , started on heparin drip and admitted for further management. HOSPITAL COURSE: Patient admitted to medical surgical floor . Venous duplex bilateral lower extremity revealed no evidence of acute DVT . Heparin drip was discontinued. X-ray of the left foot revealed no evidence of fracture. Patient was carefully diuresed with close monitoring of renal parameters and volumes. Prednisone was continued with plan to taper over the 3 months. DVT and GI prophylaxis provided Patient was at high nutritional risk. Protein supplements provided as per registered dietitian recommendation with daily Nephro. Pain management was addressed. Neurontin continued. Patient clinically stabilized and was ready for discharge. FINAL DIAGNOSES: Right foot pain with lower extremity edema Chronic kidney disease stage IV Neuropathy Protein calorie malnutrition DISCHARGE MEDICATIONS: See Medication Reconciliation list. DISCHARGE INSTRUCTIONS: Patient was discharged home. Follow-up with the anode rebuilder as recommended I have been assigned to dictate discharge summary for this account. I was not involved in the patient's management. Nora Hinojosa NP Mar 17, 2020 08:27
== END 2020-03-15 15:15 | disposition home or self-care (01) | DRG 699 ==
LOC: EMR 15:54 → 4E 18:50 → EDBEDREQ 20:08
DX: N01.7 Rapidly progressive nephritic syndrome with diffuse crescentic glomerulonephritis (principal); I12.0 Hypertensive chronic kidney disease with stage 5 chronic kidney disease or end stage renal disease; E46 Unspecified protein-calorie malnutrition; N18.6 End stage renal disease; N18.4 Chronic kidney disease, stage 4 (severe); G62.9 Polyneuropathy, unspecified; M79.671 Pain in right foot; M19.90 Unspecified osteoarthritis, unspecified site
CPT/HCPCS: 36415; 71045; 80048; 80053; 81003; 83880; 85025; 85610; 85730; 93005; 93925; 93970; 96374; 99285

== ENCOUNTER 2020-04-14 10:21 | Inpatient (IN) | payer MEDICARE, OTHER ==
[~2020-04-14] VITALS: Ht 157.5 cm; Wt 46.4 kg
[~2020-04-14 10:21] MED LIST changes: +FUROSEMIDE20 M1 ORAL; +FUSION PLUS CA1 EACH PO
--- NOTE | 2020-04-14 10:26 | Emergency Room Report ---
History of Present Illness General Chief Complaint: To Be Triaged Source: Patient Present Illness HPI 74-year-old female with past medical history of CKD stage IV, RA, HTN, neuropathy presents with chief complaint of right lower extremity swelling and pain, acute on chronic. Pt was seen at [facility] and received 3 infusions for CKD and was placed on daily prednisone 30 mg. Denies trauma, falls, abrasion, laceration, SOB, CP, cough, hemoptysis, n/v/d, or other complaints. Son states pt's home health nurse came yesterday and found the RLE weeping therefore applied a wound dressing. The patient's symptoms were gradual onset, severity was moderate, duration since several days. Quality: swelling Past medical history: RA, CKD, HTN Past surgical history: Denies Smoking: Denies Alcohol use: Denies Drug use: Denies Review of systems: CONST: No fevers or chills, No night sweats PULMONARY: No productive cough, No shortness of breath CARDIAC: No chest pain, No palpitations GI: No vomiting, No diarrhea , No melena_or_BRBPR : No dysuria, No hematuria, No discharge NEURO: No new_focal_weakness_or_numbness, No confusion, No vision changes 14 point Review of Systems is otherwise negative except per HPI Physical Exam: GENERAL: Awake_alert_ nontoxic, no acute distress Spo2 98% on RA -normal EYES: Extraocular muscles are intact. Conjunctivae clear. Lids without swelling ENT: External nose and ear normal_in_appearance. Oropharynx clear. Head_ atraumatic, Moist_oral_mucosa NECK: No JVD. No meningismus. No thyromegaly. Supple. Trachea midline RESP: Normal respiratory effort. Symmetric rise. No stridor. Clear_to_ auscultation_No_rales_No_wheezes CARDIAC: Regular rate and regular rhytm. RLE +2/4 pitting edema to the proximal tibia. Weeping. Erythema. No palpable crepitus. no pain out of proportion with flexion/ext of Knee, ankle or foot. ABDOMEN: Soft. Nondistended. Nontender_No_rebound_or_guarding. MSK: Normal muscle tone, without rigidity. Extremities without asymmetric deformity or swelling. RA toe contractures. SKIN: Warm and dry. No visible cyanosis or pallor NEUROLOGIC: Alert, oriented x3. Motor_and_sensation_grossly_intact. No truncal ataxia. Gait_normal Psych: Normal mood and affect, normal judgment and insight - COORDINATION OF CARE Case was discussed with: Patient , Patient's Family Any labs and imaging that were ordered were interpreted as part of the medical decision making: Medical Decision Making/Plan: Differential diagnosis includes renal failure, congestive heart failure, arthritis, venous stasis without evidence of: Soft tissue infection such as cellulitis or abscess, compartment syndrome, septic arthritis, arterial occlusion, deep venous thrombosis, among others. Initial VSS are afebrile. WNL. Exam shows RLE swelling > LLE. Duplex US shows no acute DVT. Labs show leukocytosis of 16. No acidosis. BNP is 713 likely chronic CHF. Trop negative. Cr is elevated at baseline 1.9. ED intervention included rocephin for cellulitis, pain control and local wound care to RLE. Nitro given for preload/afterload reduction. Cant give lasix 2/2 Cr 1.9. No Vasotec 2/2 soft BP. Distally the patient has capillary refill <2 seconds and strong pulses. There is no pallor or pain out of proportion to exam. There is mild swelling with negative Homans sign The associated joints have full range of motion without any significant pain or restriction in mobility. There is no crepitus or pain out of proportion to exam and the patient is afebrile and nontoxic. There is no overlying significant redness, induration, tenderness, pus, or evidence of drainable fluid collection. No evidence of septic arthritis, necrotizing fasciitis, or soft tissue infection such as abscess or cellulitis. No trauma, no injury , compartments are soft, the patient is able to bear weight and has no neurologic deficits. No evidence of fracture, dislocation or compartment syndrome at this time. I spoke with Dr. Rolle, and reviewed the patients presentation, workup, results, and treatment. They will admit the patient for further care and evaluation, and assume care of the patient at this time. Allergies: Coded Allergies: No Known Allergies (Unverified , 10/02/15) COVID-19 Screening Contact w/high risk pt: No Experienced COVID-19 symptoms?: No Nursing Documentation-PMH Hx Cardiac Problems: No - RA Hx Hypertension: No Hx Pacemaker: No Hx Asthma: No Hx COPD: No - PNEUMONIA Hx Diabetes: No Hx Cancer: No Hx Gastrointestinal Problems: No - Pyelonephritis Hx Dialysis: No - "Kidney problem" Hx Neurological Problems: No Hx Cerebrovascular Accident: No Hx Seizures: No Hx Headaches: Yes Physical Exam Sp02 EP Interpretation: reviewed, normal Medical Decision Making Diagnostic Impression: Primary Impression: Right leg swelling Additional Impressions: CKD (chronic kidney disease) Emphysema lung Cellulitis CHF (congestive heart failure) EKG Diagnostic Results COLEEN Pacheco 12-lead EKG (interpreted by me) Time: 1036 Indication: Rhythm analysis Tracing visualized and Interpreted by me. Rhythm: Normal sinus rhythm Rate: 71 bpm QTc: 382 Morphology: No_significant_ST_elevations_or_depressions, No STEMI Impression: Normal_sinus_rhythm_without_significant_abnormality Rhythm Strip Diag. Results Rhythm Strip Time: 12:47 EP Interpretation: yes Rate: 62 Rhythm: NSR, no PVC's, no ectopy Reevaluation Time: 12:47 Status: improved Disposition: ADMITTED INPATIENT Admit Decision Time: 11:30 Condition: Stable Veronica Cole D.O. Apr 14, 2020 10:26
--- NOTE | 2020-04-14 10:30 | NUR ---
ED Nurse Note: Pt brought in by son from home c/o redness, pain, and swelling to right lower leg x 1 month. Respirations even and unlabored on room air. Vitals stable as documented. Denies history of HTN or DM. Afebrile. A+ox4, speaking in full sentences.
--- NOTE | 2020-04-14 10:39 | NUR ---
ED Nurse Note: blood collected and sent to lab
[2020-04-14] MEDS ORDERED: cefTRIAXone 1 GM in NS 55 ML IVPB ONE (10:45)
[2020-04-14 10:47] VITALS: BP 113/76
[2020-04-14] MEDS ORDERED: HYDROcodone/Acetamin 5/325 tab ONE (10:56)
[2020-04-14] MEDS ORDERED: HYDROcodone/Acetamin 5/325 tab ORAL SCH (11:00)
[2020-04-14 11:13] LABS: APPEARANCE,URINE CLEAR; BILIRUBIN, URINE NEGATIVE (NEGATIVE); COLOR,URINE PALE YELLOW; GLUCOSE, URINE (UA) NEGATIVE (NEGATIVE); KETONES,URINE NEGATIVE (NEGATIVE); LEUKOCYTE ESTERASE ,URINE 1+ (NEGATIVE); NITRITE,URINE NEGATIVE (NEGATIVE); PH,URINE 6 (4.5-8.0); PROTEIN,URINE 3+ (NEGATIVE); UROBILINOGEN,URINE NORMAL MG/DL (0.0-1.0)
[2020-04-14 11:17] LABS: INR 0.9 (0.9-1.1)
[2020-04-14 11:20] LABS: HEMATOCRIT 39.5 % (37.0-47.0); HEMOGLOBIN 12.7 G/DL (12.0-16.0); MEAN CORPUSCULAR VOLUME 96 FL (80-99); PLATELET COUNT 204 K/UL (150-450); RED BLOOD COUNT 4.11 M/UL (4.20-5.40); RED CELL DISTRIBUTION WIDTH 13.7 % (11.6-14.8); WHITE BLOOD COUNT 16.3 K/UL (4.8-10.8)
[2020-04-14 11:28] LABS: ANION GAP 10 mmol/L (5-15); BLOOD UREA NITROGEN 64 mg/dL (7-18); CALCIUM 9.1 MG/DL (8.5-10.1); CARBON DIOXIDE 23 MMOL/L (21-32); CHLORIDE 106 MMOL/L (98-107); CREATININE 1.9 MG/DL (0.55-1.30); POTASSIUM 4.4 MMOL/L (3.5-5.1); SODIUM 139 MMOL/L (136-145)
[2020-04-14 11:40] LABS: ALANINE AMINOTRANSFERASE 18 U/L (12-78); ALBUMIN 3.3 G/DL (3.4-5.0); ALBUMIN/GLOBULIN RATIO 0.8 (1.0-2.7); ALKALINE PHOSPHATASE 117 U/L (46-116); ASPARTATE AMINO TRANSFERASE 20 U/L (15-37); BILIRUBIN,TOTAL 0.4 MG/DL (0.2-1.0)
[2020-04-14] MEDS ORDERED: FUROSEMIDE20 M1 ORAL (12:09)
[2020-04-14] MEDS ORDERED: GABAPENTIN100 MG ORAL (12:09)
[2020-04-14] MEDS ORDERED: PREDNISONE20 MG ORAL (12:09)
[2020-04-14] MEDS ORDERED: FUSION PLUS CA1 EACH PO (12:09)
[2020-04-14] MEDS ORDERED: HYDROXYCHLOROQ200 M1 PO (12:09)
--- NOTE | 2020-04-14 12:10 | NUR ---
ED Nurse Note: US @ bedside
[2020-04-14] MEDS ORDERED: Nitroglycerin 2% oint pkt TOPIC ONE ×2 (12:30→12:46)
--- NOTE | 2020-04-14 12:30 | NUR ---
ED Nurse Note: called pharmacy to ask about verifying nitro-bid. will wait for med order to be verified to administer
[2020-04-14 12:35] VITALS: BP 140/63
--- NOTE | 2020-04-14 12:54 | NUR ---
ED Nurse Note: report given to GLORIA Atkins on 4E
--- NOTE | 2020-04-14 13:30 | NUR ---
NURSE NOTES: PT ARRIVED ON FLOOR, IN STABLE CONDITION. RLE SWOLLEN, RED, TENDER TO TOUCH. RIGHT FOOT PITTING EDEMA 3+. PT WAS REPOSITIONED TO BED, WITH RLE ELEVATED ON PILLOW. RN USED [employer] ROCKET ENGINE COMPONENT MECHANIC [id number] TO SPEAK WITH PT. PT MADE AWARE OF PLAN OF CARE AND FALL PRECAUTIONS. PT EDUCATED NOT TO WALK BY HERSELF BUT USE CALL LIGHT FOR ASSISTANCE. PT VERBALIZED UNDERSTANDING. CALL LIGHT WITHIN REACH. BED IN LOWEST POSITION WITH BEDSIDE RAILS X2 RAISED. PT WITH FACIAL GRIMACING AND MOANING DUE TO PAIN OF RLE. PT RATES PAIN 10/10. RN LEFT MESSAGE FOR DR ROCHE REGARDING PRN PAIN MEDICATION.
--- NOTE | 2020-04-14 13:45 | NUR ---
ED Nurse Note: pt transferred safely to med surg with all belongings.
--- NOTE | 2020-04-14 14:00 | NUR ---
NURSE NOTES: DR ROCHE AT BEDSIDE AND MADE AWARE OF PT'S PAIN. PER MD, PT WILL BE FINE ON ORDERED PRN TRAMADOL 50MG. RN TO CALL MD IF TRAMADOL NUNEZ SNOT RELIEVE PAIN. DR ROCHE TO START PT ON PO DOXYCYCLINE MONOHYDRATE. RN ASKED DR ROCHE IF HE WOULD LIKE A WOUND CULTURE OF SMALL WOUND ON RIGHT LATERAL FOOT (0.5CM LENGTH X 0.5CM WIDTH X 0.1 DEPTH). MD DOES NOT WANT TO ORDER CULTURE. PT WAS ADMINISTERED ORDERED IV LASIX AND PO TRAMADOL. WILL CONTINUE TO MONITOR.
--- NOTE | 2020-04-14 14:07 | Diagnostic Imaging Report ---
Indication: Bilateral leg edema bilateral leg pain Technique: Grayscale and duplex images of the bilateral lower extremity veins Comparison: Findings: Bilaterally, grayscale and duplex images demonstrate no evidence of intraluminal thrombus. Normal phasic Doppler waveforms, demonstrating normal augmentation response and no evidence of valvular insufficiency. Greater saphenous vein(s) and tibial veins are patent. Normal compressibility. Impression: Negative for evidence of lower extremity deep venous thrombosis bilaterally
[2020-04-14] MEDS: traMADol 50mg tab ORAL PRN (14:51)
[2020-04-14 16:00] VITALS: BP 117/70
--- NOTE | 2020-04-14 17:45 | History and Physical Report ---
DATE OF ADMISSION: 04/14/2020 REASON FOR ADMISSION: 1. Right lower extremity pain. 2. Right lower extremity cellulitis. HISTORY OF PRESENT ILLNESS: Patient is a pleasant 74-year-old female who returns to the hospital for worsening right lower extremity pain, not controlled with Tylenol and increased past month. Patient had been recently diagnosed with pauci-immune glomerulonephritis and had been treated with prednisone and Rituxan. She continues to be on prednisone on a gradual taper. However, her right lower extremity has worsened and is much more red. PAST MEDICAL HISTORY: 1. 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 2. Rheumatoid arthritis. 3. Hypertension. PAST SURGICAL HISTORY: Renal biopsy. SOCIAL HISTORY: No tobacco, alcohol, or illicit drug use. FAMILY HISTORY: Positive for hypertension. REVIEW OF SYSTEMS: NEUROLOGIC: Patient denies headache, change in vision, syncope, or presyncopal episodes. CARDIOVASCULAR: No current chest pain, palpitations, or angina. PULMONARY: No difficulty breathing, productive cough, or sputum. GASTROINTESTINAL/GENITOURINARY: No changes in urinary or bowel habits. No nausea, vomiting, or diarrhea. ENDOCRINOLOGY: No night sweats, fevers, or chills. MUSCULOSKELETAL: Patient complaining of right lower extremity. LABORATORY DATA: Labs dated 04/14/2020, white cell count 16.3, hemoglobin 12.7, and platelet count 204. Sodium 139, creatinine 1.9. PHYSICAL EXAMINATION: GENERAL: Patient is awake, alert, in mild distress. HEENT: Extraocular muscles intact. No lymphadenopathy noted. CARDIOVASCULAR: S1, S2. No rubs or gallops. PULMONARY: Clear to auscultation bilaterally. No rales, rhonchi, or wheezes. ABDOMEN: Nondistended, nontender. EXTREMITIES: 2+ pitting edema, right greater than left with right lower extremity erythema. ASSESSMENT AND PLAN: 1. CKD, stage 4. Creatinine currently at baseline secondary to pauci-immune glomerulonephritis. At this time, we will continue prednisone 30 mg a day. 2. Leukocytosis secondary to long-term prednisone therapy. 3. Right lower extremity cellulitis. We will start doxycycline. We will also consult Infectious Disease for further recommendations and management. 4. Right lower extremity pain secondary to cellulitis. Previous x-rays have all been negative. 5. DVT prophylaxis with heparin. 6. GI prophylaxis with famotidine. Vicente Rolle MD DR: CHAWDICK JOB#: [id number] CC: YASSINE
--- NOTE | 2020-04-14 19:43 | NUR ---
NURSE HAND-OFF: Important Events on Shift: RLE SWELLING, SEEN BY DR ROCHE AT BEDSIDE. Patient Status: STABLE Diet: REGULAR Pending Orders: N/A Pending Results/Labs:N/A Pending MD notification:N/A Latest Vital Signs: Temperature 97.7 , Pulse 78 , B/P 117 /70 , Respiratory Rate 20 , O2 SAT 97 , Room Air, O2 Flow Rate . Vital Sign Comment: STABLE Latest Umaña Fall Score: 70 Fall Risk: High Risk Safety Measures: Call light Within Reach, Bed Alarm Zone 1, Side Rails Side Rails x2, Bed position Low and Locked. Fall Precautions: Yellow Socks Yellow Gown Door Sign Patient Fall Education Report given to Sergio SANTOS RN
--- NOTE | 2020-04-14 19:43 | NUR ---
NURSE NOTES: PT RESTING IN BED. STATES PAIN IS MINIMAL AT THIS TIME. PT HAS RIGHT LEG ELEVATED WITH PILLOW. WILL CONTINUE TO MONITOR.
--- NOTE | 2020-04-14 19:45 | NUR ---
NURSE NOTES: Received report from Young RN,The patient is alert and oriented x4 and does not seem to be in any distress at this time. The Resp is even and unlabored and the bilateral lung sounds are all cleared on auscultation. The patient when asked if she is in pain, she said" no pain". She is on bed rest and has a bedside commode. She need partial assistance with her ADL's. On skin assessment, she has a RLE swelling as a result of cellulites. IV line is noted in the Right AC 20g that is patent and asymptomatic and was flushed with NS well tolerated. The bed in low and locked position with call light within easy reach, siderails up x2. Will continue to monitor as indicated
[2020-04-14] MEDS: Doxycycline Monohydrate 100mg ORAL SCH (21:07)
[2020-04-14] MEDS: Heparin 5000 units/ml inj SUBQ SCH (21:08)
[2020-04-15] MEDS: traMADol 50mg tab ORAL PRN (03:29)
[2020-04-15 06:20] LABS: ANION GAP 9 mmol/L (5-15); BLOOD UREA NITROGEN 60 mg/dL (7-18); CALCIUM 8.8 MG/DL (8.5-10.1); CARBON DIOXIDE 26 MMOL/L (21-32); CHLORIDE 106 MMOL/L (98-107); CREATININE 2.1 MG/DL (0.55-1.30); POTASSIUM 4.1 MMOL/L (3.5-5.1); SODIUM 140 MMOL/L (136-145)
--- NOTE | 2020-04-15 07:45 | NUR ---
HAND-OFF: Report given to SAMANTA CASTRO.
--- NOTE | 2020-04-15 07:45 | NUR ---
NURSE NOTES: Received report from GLORIA Amor. Patient seen in bed AAOx4 and does not seem to be in any distress at this time. The Resp is even and unlabored. The patient when asked if she is in pain, she said" no pain". She is on bed rest with bedside commode to use. RN aware of swelling on right lower extremities. Patient is aware that she needs partial assistance getting on bedside commode. The bed in low and locked position with call light within reach, siderails up x2. Will continue to monitor.
[2020-04-15 08:00] VITALS: BP 95/55
[2020-04-15] MEDS: Doxycycline Monohydrate 100mg ORAL SCH ×2 (08:12→20:37)
[2020-04-15] MEDS: Heparin 5000 units/ml inj SUBQ SCH ×2 (08:14→20:38)
--- NOTE | 2020-04-15 11:33 | Consultation ---
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 Patient last seen here in Sep 2019 for PNA. Allergies: Coded Allergies: No Known Allergies (Unverified , 10/02/15) Medication History Scheduled Furosemide* (Lasix*), 20 MG ORAL DAILY, (Reported) Furosemide* (Lasix*), 20 MG ORAL BID, (Reported) Gabapentin* (Gabapentin*), 300 MG ORAL BID, (Reported) Hydroxychloroquine Sulfate (Hydroxychloroquine Sulfate), 200 MG PO DAILY, ( Reported) Iron,Fum&Ps/Fa/Vit B&C#18/L.ca (Fusion Plus Capsule), 1 EACH PO DAILY, (Reported ) Iron,Fum&Ps/Fa/Vit B&C#18/L.ca (Fusion Plus Capsule), 1 EACH PO DAILY, (Reported ) Prednisone* (Prednisone*), 30 MG ORAL DAILY, (Reported) Patient History Healthcare decision maker Resuscitation status Advanced Directive on File Patient History Narrative Pmhx: as above Shx: No tobacco, alcohol, or illicit drug use. Fhx: non contributory Review of Systems All Other Systems: negative except mentioned in HPI Physical Exam Physical Exam Narrative GENERAL: Patient is awake, alert, in mild distress. HEENT: Extraocular muscles intact. No lymphadenopathy noted. CARDIOVASCULAR: S1, S2. No rubs or gallops. PULMONARY: Clear to auscultation bilaterally. No rales, rhonchi, or wheezes. ABDOMEN: Nondistended, nontender. EXTREMITIES: 2+ pitting edema, right greater than left with right lower extremity erythema. Last 24 Hour Vital Signs Date Time Temp Pulse Resp B/P (MAP) Pulse Ox O2 Delivery O2 Flow Rate FiO2 04/15/20 09:00 Room Air 04/15/20 08:00 97.2 87 18 95/55 (68) 95 04/14/20 21:00 Room Air 04/14/20 17:16 Room Air 04/14/20 16:00 97.7 78 20 117/70 (86) 97 04/14/20 13:45 97.5 73 16 131/72 98 Room Air 04/14/20 12:50 141/68 04/14/20 12:35 69 12 140/63 99 Room Air Intake and Output 04/14/20 04/15/20 19:00 07:00 # Voids 1 Laboratory Tests Test 04/15/20 05:20 Sodium Level 140 MMOL/L (136-145) Potassium Level 4.1 MMOL/L (3.5-5.1) Chloride Level 106 MMOL/L (98-107) Carbon Dioxide Level 26 MMOL/L (21-32) Anion Gap 9 mmol/L (5-15) Blood Urea Nitrogen 60 mg/dL (7-18) H Creatinine 2.1 MG/DL (0.55-1.30) H Estimat Glomerular Filtration Rate 22.9 mL/min (>60) Glucose Level 123 MG/DL (74-106) H Calcium Level 8.8 MG/DL (8.5-10.1) Height (Feet): 5 Height (Inches): 2.00 Weight (Pounds): 102 Medications Current Medications Medications (Trade) Dose Ordered Sig/Floyd Route PRN Reason Start Time Stop Time Status Last Admin Dose Admin Acetaminophen (Tylenol) 650 mg Q4H PRN ORAL Mild Pain (Pain Scale 1-3) 04/14/20 14:00 05/14/20 13:59 Dextrose (Dextrose 50%) 25 ml Q30M PRN IV Hypoglycemia 04/14/20 14:00 07/13/20 13:59 Dextrose (Dextrose 50%) 50 ml Q30M PRN IV Hypoglycemia 04/14/20 14:00 07/13/20 13:59 Doxycycline Monohydrate (Doxycycline Monohydrate) 100 mg Q12HR ORAL 04/14/20 21:00 04/21/20 20:59 04/15/20 08:12 Famotidine (Pepcid) 40 mg DAILY ORAL 04/15/20 09:00 07/14/20 08:59 04/15/20 08:13 Furosemide (Lasix) 40 mg TID IV 04/14/20 14:00 05/14/20 13:59 04/15/20 08:13 Heparin Sodium (Porcine) (Heparin 5000 units/ml) 5,000 units EVERY 12 HOURS SUBQ 04/14/20 21:00 05/29/20 20:59 04/15/20 08:14 Morphine Sulfate (Morphine Sulfate) 1 mg Q3H PRN IVP Severe Pain (Pain Scale 7-10) 04/14/20 15:00 04/21/20 14:59 Prednisone (predniSONE) 30 mg DAILY ORAL 04/15/20 09:00 05/15/20 08:59 04/15/20 08:13 Tramadol HCl (Ultram) 50 mg TID PRN ORAL Moderate Breakthru Pain (5-7) 04/14/20 14:00 04/21/20 13:59 04/15/20 03:29 Assessment/Plan Assessment/Plan: Abx: Ceftriaxone x1 04/14 PO Doxycycline 04/14- Assessment: COVID neg x1 (04/14 rapid COVID PCR neg) R LE cellulitis; improving -v. 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 Will continue to follow along with you. Discussed with Nayla Gutierrez M.D. Apr 15, 2020 11:33
[2020-04-15 12:00] VITALS: BP 112/63
[2020-04-15] MEDS: Morphine Sulfate 2mg/ml Inj(IV/IM USE ONLY) IVP PRN ×2 (12:00→17:56)
--- NOTE | 2020-04-15 13:12 | NUR ---
CASE MANAGEMENT:INITIAL REVIEW 73 YR OLD FEMALE BIB SON FROM HOME CC;EDEMA SI;CELLULITIS. RIGHT LEG SWELLING. 97.5 79 18 141/68 97% ON RA WBC 16.3 BUN 64 CR 1.9 BG 134 ALP 117 BNP 713 ALB 3.3 UA+ PROTEIN, BLOOD, LEUKOCYTE ESTERASE, RBC, WBC COVID RAPID ~ NEGATIVE VENOUS DUPLEX ~ Negative for evidence of lower extremity deep venous thrombosis bilaterally IS;ROCEPHIN IV ONCE NORCO PO ONCE NITRO-BID TOP ONCE ADMITTED TO MED SURG 04/14/20 @ 1311 MED SURG STATUS DCP;FROM HOME PLAN; ABX DVT PPX INTERQUAL CRITERIA MET
--- NOTE | 2020-04-15 16:32 | Nephrology Progress Note ---
Assessment/Plan Assessment/Plan: A/P 1) RLE Cellulitis/Edema- vastly improved and pain almost resolved - DC home Saturday on 1 week of Doxy 2) CKD 4- pauci immune GN, biopsy proved - s/p Rituxan. Continue prednisone and atovaquone prophylaxis Subjective Date patient seen: Apr 15, 2020 Time patient seen: 12:00 ROS Limited/Unobtainable: No Allergies: Coded Allergies: No Known Allergies (Unverified , 10/02/15) Subjective Patient feels much better Objective Last 24 Hour Vital Signs Date Time Temp Pulse Resp B/P (MAP) Pulse Ox O2 Delivery O2 Flow Rate FiO2 04/15/20 12:00 98.2 87 18 112/63 (79) 94 04/15/20 09:00 Room Air 04/15/20 08:00 97.2 87 18 95/55 (68) 95 04/14/20 21:00 Room Air 04/14/20 17:16 Room Air Intake and Output 04/14/20 04/15/20 19:00 07:00 # Voids 1 Laboratory Tests 04/15/20 05:20: Sodium Level 140, Potassium Level 4.1, Chloride Level 106, Carbon Dioxide Level 26, Anion Gap 9, Blood Urea Nitrogen 60H, Creatinine 2.1H, Estimat Glomerular Filtration Rate 22.9, Glucose Level 123H, Calcium Level 8.8 Height (Feet): 5 Height (Inches): 2.00 Weight (Pounds): 102 General Appearance: no apparent distress EENT: normal ENT inspection Neck: normal alignment, supple Cardiovascular: normal rate, regular rhythm Respiratory/Chest: lungs clear, normal breath sounds Edema: 1+ Leg (R) Vicente Rolle MD Apr 15, 2020 16:32
--- NOTE | 2020-04-15 17:54 | NUR ---
NURSE NOTES: RN unable to give cefazolin, RN called pharmacy and made aware that medication is not on the floor. Per Natalie from pharmacy, karynll sent it up. Awaiting medication
[2020-04-15] MEDS: CEFAZOLIN SOD IV SCH (18:05)
[2020-04-15] MEDS: D5W IV SCH (18:05)
--- NOTE | 2020-04-15 18:07 | NUR ---
CHARGE NURSE NOTE: BUN 60, Pt is not on IV fluids. Dr.De Marx notified. No new orders given.
--- NOTE | 2020-04-15 19:43 | NUR ---
HAND-OFF: Report given to GLORIA Ortega.
--- NOTE | 2020-04-15 19:46 | NUR ---
NURSE NOTES: The resident is alert and oriented x4 and cooperative with her care and does not seem to be in any distress at this time. The Resp is even and unlabored and the bilateral lung sounds are all clear on auscultation.The IV line is noted in the Right AC 20g that is patent and asymptomatic and was flushed with NS well tolerated. The bed in low and locked position with call light within easy reach, siderails up x2. Will continue to monitor as indicated
[2020-04-15 20:00] VITALS: BP 144/65
[2020-04-16] VITALS: BP 141/71
[2020-04-16 04:00] VITALS: BP 147/68
[2020-04-16] MEDS: D5W IV SCH ×2 (04:37→17:26)
[2020-04-16] MEDS: CEFAZOLIN SOD IV SCH ×2 (04:37→17:26)
[2020-04-16] MEDS: traMADol 50mg tab ORAL PRN (04:38)
--- NOTE | 2020-04-16 04:59 | NUR ---
NURSE NOTES: The patient complained of pain in the leg and was given Tramadol 50 mg Po well tolerated. She is presently sleeping with Resp even and unlabored and the bilateral lung sounds clear on auscultation. will continue monitor
[2020-04-16 08:00] VITALS: BP 123/75
[2020-04-16] MEDS: Morphine Sulfate 2mg/ml Inj(IV/IM USE ONLY) IVP PRN ×2 (08:02→22:39)
--- NOTE | 2020-04-16 08:03 | NUR ---
HAND-OFF: Report given to Roc CASTRO.
--- NOTE | 2020-04-16 08:14 | Infectious Diseases Prog Note ---
Assessment/Plan Abx: Ceftriaxone x1 04/14 PO Doxycycline 04/14- Assessment: COVID neg x1 (04/14 rapid COVID PCR neg) RLE cellulitis; improving -v. 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 Will continue to follow along with you. Discussed with RN Subjective Allergies: Coded Allergies: No Known Allergies (Unverified , 10/02/15) AF NAD on RA Decreased swelling of RLE though still w/ TTP on exam Objective Last 24 Hour Vital Signs Date Time Temp Pulse Resp B/P (MAP) Pulse Ox O2 Delivery O2 Flow Rate FiO2 04/16/20 04:00 97.7 87 18 147/68 (94) 98 04/16/20 00:00 97.7 68 20 141/71 (94) 97 04/15/20 21:00 Room Air 04/15/20 20:00 98.1 62 17 144/65 (91) 98 04/15/20 12:00 98.2 87 18 112/63 (79) 94 04/15/20 09:00 Room Air Height (Feet): 5 Height (Inches): 2.00 Weight (Pounds): 102 Gen: NAD CV: RRR Pulm: CTAB Abd: Soft, NTND Ext: RLE w/ diffuse mild erythema and TTP, less swelling than prior Microbiology Date/Time Source Procedure Growth Status 04/14/20 10:35 Blood Blood Culture - Preliminary NO GROWTH AFTER 24 HOURS Resulted 04/14/20 10:35 Blood Blood Culture - Preliminary NO GROWTH AFTER 24 HOURS Resulted 04/14/20 10:45 Nasopharynx SARS-CoV-2 RdRp Gene Assay - Final Complete Laboratory Tests Test 04/16/20 07:05 White Blood Count Pending Red Blood Count Pending Hemoglobin Pending Hematocrit Pending Mean Corpuscular Volume Pending Mean Corpuscular Hemoglobin Pending Mean Corpuscular Hemoglobin Concent Pending Red Cell Distribution Width Pending Platelet Count Pending Mean Platelet Volume Pending Neutrophils (%) (Auto) Pending Lymphocytes (%) (Auto) Pending Monocytes (%) (Auto) Pending Eosinophils (%) (Auto) Pending Basophils (%) (Auto) Pending Sodium Level Pending Potassium Level Pending Chloride Level Pending Carbon Dioxide Level Pending Blood Urea Nitrogen Pending Creatinine Pending Estimat Glomerular Filtration Rate Pending Glucose Level Pending Calcium Level Pending Total Bilirubin Pending Aspartate Amino Transf (AST/SGOT) Pending Alanine Aminotransferase (ALT/SGPT) Pending Alkaline Phosphatase Pending Total Protein Pending Albumin Pending Globulin Pending Current Medications Medications (Trade) Dose Ordered Sig/Floyd Route PRN Reason Start Time Stop Time Status Last Admin Dose Admin Acetaminophen (Tylenol) 650 mg Q4H PRN ORAL Mild Pain (Pain Scale 1-3) 04/14/20 14:00 05/14/20 13:59 Cefazolin Sodium 500 mg/Dextrose 55 ml @ 110 mls/hr Q12HR@0500,1700 IV 04/15/20 17:00 04/22/20 16:59 04/16/20 04:37 Dextrose (Dextrose 50%) 25 ml Q30M PRN IV Hypoglycemia 04/14/20 14:00 07/13/20 13:59 Dextrose (Dextrose 50%) 50 ml Q30M PRN IV Hypoglycemia 04/14/20 14:00 07/13/20 13:59 Doxycycline Monohydrate (Doxycycline Monohydrate) 100 mg Q12HR ORAL 04/14/20 21:00 04/21/20 20:59 04/15/20 20:37 Famotidine (Pepcid) 40 mg DAILY ORAL 04/15/20 09:00 07/14/20 08:59 04/15/20 08:13 Heparin Sodium (Porcine) (Heparin 5000 units/ml) 5,000 units EVERY 12 HOURS SUBQ 04/14/20 21:00 05/29/20 20:59 04/15/20 20:38 Morphine Sulfate (Morphine Sulfate) 1 mg Q3H PRN IVP Severe Pain (Pain Scale 7-10) 04/14/20 15:00 04/21/20 14:59 04/16/20 08:02 Prednisone (predniSONE) 30 mg DAILY ORAL 04/15/20 09:00 05/15/20 08:59 04/15/20 08:13 Tramadol HCl (Ultram) 50 mg TID PRN ORAL Moderate Breakthru Pain (5-7) 04/14/20 14:00 04/21/20 13:59 04/16/20 04:38 Donna Lafleur M.D. Apr 16, 2020 08:14
[2020-04-16 08:23] LABS: HEMATOCRIT 34.5 % (37.0-47.0); HEMOGLOBIN 11.3 G/DL (12.0-16.0); MEAN CORPUSCULAR VOLUME 95 FL (80-99); PLATELET COUNT 189 K/UL (150-450); RED BLOOD COUNT 3.65 M/UL (4.20-5.40); RED CELL DISTRIBUTION WIDTH 13.1 % (11.6-14.8); WHITE BLOOD COUNT 18.1 K/UL (4.8-10.8)
--- NOTE | 2020-04-16 08:30 | NUR ---
NURSE NOTES: made rounds, pt is in the bed and crying for pain on her right leg. rates her pain level to be 10/10. administered morphine as ordered. made pt comfortable in bed. call light is within reach, will follow plan of care.
[2020-04-16] MEDS: Doxycycline Monohydrate 100mg ORAL SCH ×2 (08:44→21:09)
[2020-04-16] MEDS: Heparin 5000 units/ml inj SUBQ SCH ×2 (08:45→21:16)
[2020-04-16 08:50] LABS: ALANINE AMINOTRANSFERASE 16 U/L (12-78); ALBUMIN 2.5 G/DL (3.4-5.0); ALBUMIN/GLOBULIN RATIO 0.5 (1.0-2.7); ALKALINE PHOSPHATASE 89 U/L (46-116); ANION GAP 9 mmol/L (5-15); ASPARTATE AMINO TRANSFERASE 19 U/L (15-37); BILIRUBIN,TOTAL 0.3 MG/DL (0.2-1.0); BLOOD UREA NITROGEN 62 mg/dL (7-18); CALCIUM 9.7 MG/DL (8.5-10.1); CARBON DIOXIDE 28 MMOL/L (21-32); CHLORIDE 101 MMOL/L (98-107); CREATININE 2.2 MG/DL (0.55-1.30); POTASSIUM 3.6 MMOL/L (3.5-5.1); SODIUM 138 MMOL/L (136-145)
--- NOTE | 2020-04-16 11:23 | Nephrology Progress Note ---
Assessment/Plan Assessment/Plan: A/P 1) RLE Cellulitis/Edema- vastly improved and pain almost resolved - DC home today on Doxy 2) CKD 4- pauci immune GN, biopsy proved - s/p Rituxan. Continue prednisone and atovaquone prophylaxis 3) Leukocytosis- due to high chronic prednisone dosing for vasculitis Subjective Date patient seen: Apr 16, 2020 Time patient seen: 11:21 ROS Limited/Unobtainable: No Allergies: Coded Allergies: No Known Allergies (Unverified , 10/02/15) Subjective Patient feels much better and requesting to go home Objective Last 24 Hour Vital Signs Date Time Temp Pulse Resp B/P (MAP) Pulse Ox O2 Delivery O2 Flow Rate FiO2 04/16/20 09:00 Room Air 04/16/20 08:00 97.9 109 20 123/75 (91) 95 04/16/20 04:00 97.7 87 18 147/68 (94) 98 04/16/20 00:00 97.7 68 20 141/71 (94) 97 04/15/20 21:00 Room Air 04/15/20 20:00 98.1 62 17 144/65 (91) 98 04/15/20 12:00 98.2 87 18 112/63 (79) 94 Intake and Output 04/15/20 04/16/20 18:59 06:59 Intake Total 720 ml Output Total 1400 ml Balance -680 ml Intake Oral 720 ml Output Urine Total 1400 ml # Voids 2 Laboratory Tests 04/16/20 07:05: White Blood Count 18.1H, Red Blood Count 3.65L, Hemoglobin 11.3L, Hematocrit 34.5L, Mean Corpuscular Volume 95, Mean Corpuscular Hemoglobin 31.0, Mean Corpuscular Hemoglobin Concent 32.8, Red Cell Distribution Width 13.1, Platelet Count 189, Mean Platelet Volume 6.2L, Neutrophils (%) (Auto) , Lymphocytes (%) ( Auto) , Monocytes (%) (Auto) , Eosinophils (%) (Auto) , Basophils (%) (Auto) , Differential Total Cells Counted 100, Neutrophils % (Manual) 91H, Lymphocytes % (Manual) 6L, Monocytes % (Manual) 3, Eosinophils % (Manual) 0, Basophils % ( Manual) 0, Band Neutrophils 0, Platelet Estimate Adequate, Platelet Morphology Normal, Hypochromasia 1+, Anisocytosis 1+, Sodium Level 138, Potassium Level 3.6 , Chloride Level 101, Carbon Dioxide Level 28, Anion Gap 9, Blood Urea Nitrogen 62H, Creatinine 2.2H, Estimat Glomerular Filtration Rate 21.7, Glucose Level 95 , Calcium Level 9.7, Total Bilirubin 0.3, Aspartate Amino Transf (AST/SGOT) 19, Alanine Aminotransferase (ALT/SGPT) 16, Alkaline Phosphatase 89, Total Protein 7.1, Albumin 2.5L, Globulin 4.6, Albumin/Globulin Ratio 0.5L Height (Feet): 5 Height (Inches): 2.00 Weight (Pounds): 102 General Appearance: no apparent distress EENT: normal ENT inspection Neck: normal alignment, supple Cardiovascular: normal rate, regular rhythm Respiratory/Chest: lungs clear, normal breath sounds Abdomen: non tender, soft Edema: no edema noted Arm (L), no edema noted Arm (R), no edema noted Leg (L), no edema noted Leg (R), no edema noted Pedal (L), no edema noted Pedal (R), no edema noted Generalized Vicente Rolle MD Apr 16, 2020 11:23
--- NOTE | 2020-04-16 11:25 | Discharge Instructions ---
Discharge Instructions Discharge Instructions Services at Discharge: home health services Activity: light activity Follow Up Orders Follow up Renal Dr Rolle 1 week For Congestive Heart Failure Reminder Report to your physician any weight gain of 5 pounds or more in one week. Vicente Rolle MD Apr 16, 2020 11:25
[2020-04-16 12:00] VITALS: BP 109/61
--- NOTE | 2020-04-16 12:30 | NUR ---
NURSE NOTES: Received a call from Doctor Lafleur (ID)MD stated that patient's WBC level is still high. Gianna Lafleur recommends patient to stay in the hospital for few more days and receive more antibiotics. Dr Lafleur requested to notify primary MD, Doctor Zhang.
--- NOTE | 2020-04-16 12:35 | NUR ---
NURSE NOTES: Called Dr. Zhang and made aware about Dr. Lafleur's recommendations. Dr. Zhang says "patient is on steroids, which is why the WBC is still elevated," "Have Dr. Lafleur to call me."
--- NOTE | 2020-04-16 12:38 | NUR ---
NURSE NOTES: Paged Dr Lafleur, left a message to office.
--- NOTE | 2020-04-16 12:40 | NUR ---
NURSE NOTES: Dr. Lafleur returns call and ordered to cancel the discharge because of elevated WBC. Dr. Lafleur said patient will stay few more days for more antibiotics. order is noted and communicated.
--- NOTE | 2020-04-16 12:43 | NUR ---
NURSE NOTES: Called primary MD, Dr Zhang and made aware about doctor Miquel's recommendations. Dr Zhang says "keep the patient until after clearance from the ID doctor."
[2020-04-16 16:00] VITALS: BP 107/62
--- NOTE | 2020-04-16 19:15 | NUR ---
NURSE NOTES: Received pt awake,A&Ox4, and verbal. Pt has no sob,fever,cough, and pain at the moment. Iv is intact and asymptomatic. Bed is in the lowest position,locked, and call light within reach. We will keep monitoring the pt.
[2020-04-16 20:00] VITALS: BP 147/71
[2020-04-17] VITALS: BP 118/61
[2020-04-17] MEDS: traMADol 50mg tab ORAL PRN (00:32)
[2020-04-17 04:00] VITALS: BP 115/62
[2020-04-17] MEDS: D5W IV SCH (05:09)
[2020-04-17] MEDS: CEFAZOLIN SOD IV SCH (05:09)
--- NOTE | 2020-04-17 07:15 | NUR ---
NURSE HAND-OFF: Important Events on Shift:na Patient Status: stable Diet: Regular Pending Orders: Pending Results/Labs:cbc,bmp Pending MD notification:[] Latest Vital Signs: Temperature 96.8 , Pulse 67 , B/P 115 /62 , Respiratory Rate 20 , O2 SAT 98 , Room Air, O2 Flow Rate . Vital Sign Comment: [] Latest Umaña Fall Score: 70 Fall Risk: High Risk Safety Measures: Call light Within Reach, Bed Alarm Zone 1, Side Rails Side Rails x2, Bed position Low and Locked. Fall Precautions: Yellow Socks Yellow Gown Door Sign Patient Fall Education Report given to GLORIA Brian.
[2020-04-17 07:24] LABS: HEMATOCRIT 34.3 % (37.0-47.0); HEMOGLOBIN 11.5 G/DL (12.0-16.0); MEAN CORPUSCULAR VOLUME 94 FL (80-99); PLATELET COUNT 202 K/UL (150-450); RED BLOOD COUNT 3.66 M/UL (4.20-5.40); RED CELL DISTRIBUTION WIDTH 12.7 % (11.6-14.8); WHITE BLOOD COUNT 13.4 K/UL (4.8-10.8)
[2020-04-17 07:29] LABS: ANION GAP 7 mmol/L (5-15); BLOOD UREA NITROGEN 60 mg/dL (7-18); CALCIUM 9.3 MG/DL (8.5-10.1); CARBON DIOXIDE 28 MMOL/L (21-32); CHLORIDE 105 MMOL/L (98-107); POTASSIUM 3.9 MMOL/L (3.5-5.1); SODIUM 140 MMOL/L (136-145)
--- NOTE | 2020-04-17 07:36 | NUR ---
NURSE NOTES: pt is in the bed eating breakfast, tolerates meal well. no acute distress noted at this time. call light is within reach.
[2020-04-17 08:00] VITALS: BP 118/67
[2020-04-17] MEDS: Doxycycline Monohydrate 100mg ORAL SCH (09:12)
[2020-04-17] MEDS: Heparin 5000 units/ml inj SUBQ SCH (09:13)
--- NOTE | 2020-04-17 11:40 | Nephrology Progress Note ---
Assessment/Plan Assessment/Plan: A/P 1) RLE Cellulitis/Edema- vastly improved and pain almost resolved - DC home today - ID to complete Abx 2) CKD 4- pauci immune GN, biopsy proved - s/p Rituxan. Continue prednisone and atovaquone prophylaxis - Cr stable at 2 3) Leukocytosis- due to high chronic prednisone dosing for vasculitis - WBC 13K - ID to follow as out pt Subjective Date patient seen: Apr 17, 2020 Time patient seen: 11:34 ROS Limited/Unobtainable: No Allergies: Coded Allergies: No Known Allergies (Unverified , 10/02/15) Subjective Patient feels much better. Will try to DC once more Objective Last 24 Hour Vital Signs Date Time Temp Pulse Resp B/P (MAP) Pulse Ox O2 Delivery O2 Flow Rate FiO2 04/17/20 09:00 Room Air 04/17/20 08:00 97.7 71 20 118/67 (84) 99 04/17/20 04:00 96.8 67 20 115/62 (79) 98 04/17/20 00:00 96.8 63 19 118/61 (80) 97 04/16/20 20:22 Room Air 04/16/20 20:00 97.2 71 19 147/71 (96) 98 04/16/20 16:00 97.9 68 18 107/62 (77) 97 04/16/20 12:00 97.7 76 18 109/61 (77) 96 Intake and Output 04/16/20 04/17/20 19:00 07:00 Intake Total 720 ml Output Total 600 ml Balance 120 ml Intake Oral 720 ml Output Urine Total 600 ml # Voids 2 Laboratory Tests 04/17/20 06:35: White Blood Count 13.4H, Red Blood Count 3.66L, Hemoglobin 11.5L, Hematocrit 34.3L, Mean Corpuscular Volume 94, Mean Corpuscular Hemoglobin 31.4H, Mean Corpuscular Hemoglobin Concent 33.5, Red Cell Distribution Width 12.7, Platelet Count 202, Mean Platelet Volume 7.2, Neutrophils (%) (Auto) , Lymphocytes (%) ( Auto) , Monocytes (%) (Auto) , Eosinophils (%) (Auto) , Basophils (%) (Auto) , Differential Total Cells Counted 100, Neutrophils % (Manual) 90H, Lymphocytes % (Manual) 8L, Monocytes % (Manual) 2, Eosinophils % (Manual) 0, Basophils % ( Manual) 0, Band Neutrophils 0, Platelet Estimate Adequate, Platelet Morphology Normal, Red Blood Cell Morphology Normal, Sodium Level 140, Potassium Level 3.9 , Chloride Level 105, Carbon Dioxide Level 28, Anion Gap 7, Blood Urea Nitrogen 60H, Creatinine 2.0H, Estimat Glomerular Filtration Rate 24.3, Glucose Level 92 , Calcium Level 9.3 Height (Feet): 5 Height (Inches): 2.00 Weight (Pounds): 102 General Appearance: no apparent distress, alert EENT: normal ENT inspection Neck: normal alignment, supple Cardiovascular: normal rate, regular rhythm Respiratory/Chest: lungs clear, normal breath sounds Abdomen: non tender, soft Edema: no edema noted Arm (L), no edema noted Arm (R), no edema noted Leg (L), no edema noted Leg (R), no edema noted Pedal (L), no edema noted Pedal (R), no edema noted Generalized Vicente Rolle MD Apr 17, 2020 11:40
[2020-04-17 12:00] VITALS: BP 125/74
--- NOTE | 2020-04-17 13:40 | NUR ---
NURSE NOTES: Patient is discharged home without any signs of distress. Patient is alert and awake. A&O X 4. verbally responsive. Respiration is even and unlabored on room air. Denies any pain at this time. Patient has belongings; inventory paper signed. Patient did not bring home medications. Skin is clean and intact. Patient is provided with after-care instructions, provided medication teaching, and to follow-up with any MD's appointment, patient verbalized understanding of after-care instructions. IV site and wrist band removed. Patient is discharged home in company of her son via a private vehicle.
--- NOTE | 2020-04-19 08:24 | Discharge Summary ---
Discharge Summary Discharge Summary _ DATE OF ADMISSION: 04/14/2020 DATE OF DISCHARGE: 04/17/2020 DISCHARGED BY: Dr. Rolle REASON FOR ADMISSION: 74 years old female with past medical history of chronic kidney disease stage IV , secondary to pauci- immune glomerulonephritis, rheumatoid arthritis, hypertension, presented to the hospital with worsening right lower extremity pain, not controlled with Tylenol. Pain increased significantly over the past month. Patient reported redness of the right lower extremity. Laboratory work-up revealed leukocytosis WBC 16.3, hemoglobin 12.77. Platelet count 204. Creatinine 1.9 . Venous duplex bilateral lower extremity revealed no evidence of acute DVT. Rapid COVID-19 was negative. Patient had been recently diagnosed with pauci- immune glomerulonephritis and treated with prednisone and Rituxan. She continued to be on the prednisone with gradual tapering. In emergency department patient received empiric antibiotic and subsequently admitted for further management. CONSULTANTS: ID specialist Dr. Lopez [facility] COURSE: Patient admitted to medical surgical floor. Antibiotic provided as per ID specialist recommendation. Blood culture were negative. Leukocytosis trending down. No fevers. ID specialist recommended to continue oral antibiotic at home to complete the course. Renal parameters were closely monitored. Prednisone 30 mg a day continued. Creatinine remained at the same range. Nephrotoxic's were avoided. Pain management was addressed as needed. DVT and GI prophylaxis provided. Prior imaging of the right lower extremity all negative. Blood pressure was closely monitored , remained stable without antihypertensive . Supportive care provided. Patient clinically stabilized and was ready for discharge home to complete antibiotic course. FINAL DIAGNOSES: Chronic kidney disease stage IV secondary to pauci-immune glomerulonephritis Right lower extremity cellulitis Right lower extremity pain , secondary to cellulitis Leukocytosis, ikely secondary to long-term prednisone therapy- improved DISCHARGE MEDICATIONS: See Medication Reconciliation list. DISCHARGE INSTRUCTIONS: Patient was discharged home. Follow-up with her primary care provider and marketing program coordinator I have been assigned to dictate discharge summary for this account. I was not involved in the patient's management. Nora Hinojosa NP Apr 19, 2020 08:24
== END 2020-04-17 13:41 | disposition home or self-care (01) | DRG 602 ==
LOC: EMR 10:35 → 4E 11:43 → EDBEDREQ 12:43
DX: L03.115 Cellulitis of right lower limb (principal); N01.7 Rapidly progressive nephritic syndrome with diffuse crescentic glomerulonephritis; N18.4 Chronic kidney disease, stage 4 (severe); M06.9 Rheumatoid arthritis, unspecified; I10 Essential (primary) hypertension; J43.9 Emphysema, unspecified; M81.0 Age-related osteoporosis without current pathological fracture; D72.829 Elevated white blood cell count, unspecified; T38.0X5A Adverse effect of glucocorticoids and synthetic analogues, initial encounter
CPT/HCPCS: 36415; 80048; 80053; 81003; 83690; 83880; 84484; 85007; 85025; 85610; 85730; 87040; 93005; 93970; 96365; 99285; U0002